=== PATIENT | female | born 1960 | race Two or more races ===

== ENCOUNTER 2019-12-09 13:49 | Outpatient (REF) | payer MEDICAID, SELFPAY | END 2019-12-09 13:50 | disposition home or self-care (01) | LOC: HO.MDS 13:49 | PROVIDERS: Visit Provider Hospitalist | DX: J45.50 Severe persistent asthma, uncomplicated (principal) | CPT/HCPCS: 96372; J2357 ==

== ENCOUNTER → 2019-12-16 14:04 | Outpatient (BNVA) | payer MEDICAID, SELFPAY | PROVIDERS: PCP Internal Medicine; Referring Provider Internal Medicine; Visit Provider Orthopaedic Surgery | DX: M17.0 Bilateral primary osteoarthritis of knee (principal) | CPT/HCPCS: 20610; 99214; J1040 ==

== ENCOUNTER → 2019-12-28 10:11 | Outpatient (BNVA) | payer MEDICAID, SELFPAY | PROVIDERS: PCP Internal Medicine; Referring Provider Internal Medicine; Visit Provider Hospitalist | DX: J45.41 Moderate persistent asthma with (acute) exacerbation (principal); J40 Bronchitis, not specified as acute or chronic; Z79.899 Other long term (current) drug therapy | CPT/HCPCS: 99212 ==

== ENCOUNTER → 2020-01-12 20:13 | Outpatient (REF) | payer MEDICAID, SELFPAY | LOC: HO.SL 20:13 | PROVIDERS: PCP Internal Medicine; Visit Provider Internal Medicine | DX: G47.33 Obstructive sleep apnea (adult) (pediatric) (principal) | CPT/HCPCS: 95811 ==

== ENCOUNTER 2020-01-13 06:09 | Outpatient (REF) | payer MEDICAID, SELFPAY ==
[2020-01-13 07:28] LABS: MANUAL DIFF FLAG NO
[2020-01-13 07:34] LABS: Basophils Percent Auto 0.7 % (0-2); Eosinophils Absolute Auto 0.2 X10*3/uL (0.0-0.4); Eosinophils Percent Auto 2.9 % (0-4); Hematocrit 37.3 % (37-47); Hemoglobin 12.3 g/dl (12.0-16.0); Imm Gran Abs Auto 0.01 X10*3/uL (0.00-0.03); Imm Gran Pct Auto 0.2 % (0.0-0.4); Lymphocytes Absolute Auto 2.4 X10*3/uL (1.2-4.9); Lymphocytes Percent Auto 40.4 % (20-40); Mean Platelet Volume 10.2 fL (9.4-12.3); Monocytes Absolute Auto 0.7 X10*3/uL (0.1-1.2); Monocytes Percent Auto 11.4 % (2-11); Neutrophils Absolute Auto 2.6 X10*3/uL (2.0-8.3); Neutrophils Percent Auto 44.4 % (45-73); Platelet Count 418 X10*3/uL (160-400); Red Blood Count 4.24 X10*6/uL (4.20-5.50); Red Cell Distribution Width 13.7 % (11.0-16.0); White Blood Count 5.9 X10*3/uL (4.8-10.8)
[2020-01-13 08:06] LABS: SARS COV2 IgG Negative (Negative)
[2020-01-13 08:39] LABS: Erythrocyte Sedimentation Rate 18 MM/HR (0-20)
== END 2020-01-13 06:10 | disposition home or self-care (01) ==
LOC: HO.LAB 06:09
PROVIDERS: Visit Provider Hospitalist
DX: J40 Bronchitis, not specified as acute or chronic (principal)
CPT/HCPCS: 36415; 85025; 85652; 86769; 96372; J2357

== ENCOUNTER → 2020-01-20 09:33 | Outpatient (BNVA) | payer MEDICAID, SELFPAY | PROVIDERS: Visit Provider Nurse Practitioner | DX: Z76.89 Persons encountering health services in other specified circumstances (principal) ==

== ENCOUNTER 2020-01-27 11:48 | Outpatient (REF) | payer MEDICAID, SELFPAY | END 2020-01-27 11:49 | disposition home or self-care (01) | LOC: HO.MDS 11:48 | PROVIDERS: Visit Provider Hospitalist | DX: J45.909 Unspecified asthma, uncomplicated (principal) | CPT/HCPCS: 96372; J2357 ==

== ENCOUNTER 2020-02-10 13:39 | Outpatient (REF) | payer MEDICAID, SELFPAY | END 2020-02-10 13:40 | disposition home or self-care (01) | LOC: HO.MDS 13:39 | PROVIDERS: Visit Provider Hospitalist | DX: J45.909 Unspecified asthma, uncomplicated (principal) | CPT/HCPCS: 96372; J2357 ==

== ENCOUNTER 2020-02-24 12:35 | Outpatient (REF) | payer MEDICAID, SELFPAY | END 2020-02-24 12:36 | disposition home or self-care (01) | LOC: HO.MDS 12:35 | PROVIDERS: Visit Provider Hospitalist | DX: J45.50 Severe persistent asthma, uncomplicated (principal) | CPT/HCPCS: 96372; J2357 ==

== ENCOUNTER 2020-03-09 13:52 | Outpatient (REF) | payer MEDICAID, SELFPAY | END 2020-03-09 13:53 | disposition home or self-care (01) | LOC: HO.MDS 13:52 | PROVIDERS: Visit Provider Hospitalist | DX: J45.50 Severe persistent asthma, uncomplicated (principal) | CPT/HCPCS: 96372; J2357 ==

== ENCOUNTER → 2020-03-17 09:19 | Outpatient (BNVA) | payer MEDICAID, SELFPAY | PROVIDERS: PCP Internal Medicine; Visit Provider Nurse Practitioner | DX: K21.9 Gastro-esophageal reflux disease without esophagitis (principal); R10.13 Epigastric pain; K58.1 Irritable bowel syndrome with constipation ==

== ENCOUNTER 2020-03-19 08:35 | Outpatient (REF) | payer MEDICAID, SELFPAY ==
--- NOTE | 2020-03-19 | MM_ITS ---
EXAMINATION: MM SCREENING DIGITAL BREAST TOMOSYNTHESIS, BILATERAL CLINICAL INFORMATION: Screening. Asymptomatic. Family history breast cancer in cousin. The lifetime risk of breast cancer based on the Tyrer-Cuzick Model is 5%. COMPARISON: None. TECHNIQUE: Digital breast tomosynthesis is performed in both the craniocaudal and mediolateral oblique views along with computer-aided detection (CAD). Synthesized 2D images are generated from the tomosynthesis. FINDINGS: The breasts are almost entirely fatty (ACR BI-RADS breast composition Category a). Background stromal markings are unremarkable. There is intramammary node posterior upper outer right breast and smaller intramammary node posterior upper outer left breast. There is no significant mass or architectural abnormality. No abnormal calcifications. The skin contours are smooth. MM/MM tomosynthesis screening BI IMPRESSION: No mammographic evidence of malignancy. ASSESSMENT: BI-RADS 2: Benign RECOMMENDATION: Routine annual mammography screening. This patient's information was entered into a reminder system with a target due date for their next mammogram.
== END 2020-03-19 08:36 | disposition home or self-care (01) ==
LOC: HO.MAMMO 08:35
PROVIDERS: PCP Internal Medicine; Visit Provider Internal Medicine
DX: Z12.31 Encounter for screening mammogram for malignant neoplasm of breast (principal)
CPT/HCPCS: 77063; 77067

== ENCOUNTER 2020-03-23 12:15 | Outpatient (REF) | payer MEDICAID, SELFPAY | END 2020-03-23 12:16 | disposition home or self-care (01) | LOC: HO.MDS 12:15 | PROVIDERS: Visit Provider Hospitalist | DX: J45.50 Severe persistent asthma, uncomplicated (principal) | CPT/HCPCS: 96372; J2357 ==

== ENCOUNTER → 2020-03-30 10:03 | Outpatient (BNVA) | payer MEDICAID, SELFPAY | PROVIDERS: PCP Internal Medicine; Visit Provider Hospitalist ==

== ENCOUNTER → 2020-04-01 08:58 | Outpatient (BNVA) | payer MEDICAID, SELFPAY | PROVIDERS: PCP Internal Medicine; Visit Provider Nurse Practitioner ==

== ENCOUNTER 2020-04-06 13:32 | Outpatient (REF) | payer MEDICAID, SELFPAY | END 2020-04-06 13:33 | disposition home or self-care (01) | LOC: HO.MDS 13:32 | PROVIDERS: Visit Provider Hospitalist | DX: J45.50 Severe persistent asthma, uncomplicated (principal) | CPT/HCPCS: 96372; J2357 ==

== ENCOUNTER 2020-04-21 13:49 | Outpatient (REF) | payer MEDICAID, SELFPAY | END 2020-04-21 13:50 | disposition home or self-care (01) | LOC: HO.MDS 13:49 | PROVIDERS: Visit Provider Hospitalist | DX: J45.50 Severe persistent asthma, uncomplicated (principal) | CPT/HCPCS: 96372; J2357 ==

== ENCOUNTER 2020-05-06 13:34 | Outpatient (REF) | payer MEDICAID, SELFPAY | END 2020-05-06 13:35 | disposition home or self-care (01) | LOC: HO.MDS 13:34 | PROVIDERS: Visit Provider Hospitalist | DX: J45.50 Severe persistent asthma, uncomplicated (principal) | CPT/HCPCS: 96372; J2357 ==

== ENCOUNTER → 2020-05-18 09:32 | Outpatient (BNVA) | payer MEDICAID, SELFPAY | PROVIDERS: PCP Internal Medicine; Visit Provider Surgery | DX: K80.20 Calculus of gallbladder without cholecystitis without obstruction (principal) | CPT/HCPCS: 99202 ==

== ENCOUNTER 2020-05-19 12:51 | Outpatient (REF) | payer MEDICAID, SELFPAY | END 2020-05-19 12:52 | disposition home or self-care (01) | LOC: HO.MDS 12:51 | PROVIDERS: Visit Provider Hospitalist | DX: J45.50 Severe persistent asthma, uncomplicated (principal) | CPT/HCPCS: 96372; J2357 ==

== ENCOUNTER 2020-06-02 13:49 | Outpatient (REF) | payer MEDICAID, SELFPAY | END 2020-06-02 13:50 | disposition home or self-care (01) | LOC: HO.MDS 13:49 | PROVIDERS: Visit Provider Hospitalist | DX: J45.50 Severe persistent asthma, uncomplicated (principal) | CPT/HCPCS: 96372; J2357 ==

== ENCOUNTER 2020-06-16 13:31 | Outpatient (REF) | payer MEDICAID, SELFPAY | END 2020-06-16 13:32 | disposition home or self-care (01) | LOC: HO.MDS 13:31 | PROVIDERS: Visit Provider Hospitalist | DX: J45.50 Severe persistent asthma, uncomplicated (principal) | CPT/HCPCS: 96372; 99202; J2357 ==

== ENCOUNTER → 2020-06-21 12:49 | Outpatient (BNVA) | payer MEDICAID, SELFPAY | PROVIDERS: PCP Internal Medicine; Visit Provider Orthopaedic Surgery | DX: M75.40 Impingement syndrome of unspecified shoulder (principal) | CPT/HCPCS: 20610; 99202; J1040 ==

== ENCOUNTER 2020-06-28 09:46 | Outpatient (REF) | payer MEDICAID, SELFPAY ==
--- NOTE | ~2020-06-28 | US_ITS ---
EXAMINATION: US VENOUS BILATERAL LOWER EXTREMITIES (REFLUX EXAM) CLINICAL INDICATION: Leg pain and varicose veins. COMPARISON: None TECHNIQUE: Color flow triplex imaging and compression Doppler was performed to evaluate both the deep and the superficial systems bilaterally. To evaluate the superficial system, the examination was performed in the upright position. Color-flow Doppler ultrasound and compression ultrasound were utilized. In addition, maneuvers were utilized to demonstrate reflux. FINDINGS: 1. DEEP VENOUS ULTRASOUND OF THE RIGHT LOWER EXTREMITY: Respiratory variation, normal compression and augmented flow are noted in the right common femoral vein as well as the right popliteal vein and there is no evidence of deep venous thrombosis at these locations. There is no evidence of reflux in the deep system in either the common femoral vein or the popliteal vein. There is no evidence of a Short's cyst. 2. SUPERFICIAL ULTRASOUND WITH DOPPLER OF RIGHT LOWER EXTREMITY: The right great saphenous vein at the saphenofemoral junction measures 7 mm, at the proximal thigh 6 mm, at the mid thigh 3 mm, above the knee 4 mm, at the knee 2 mm, [id number] 1 mm, midcalf 1 mm and at the ankle measures 1 mm. There is no reflux demonstrated in the right great saphenous vein. Duplicated Right Great Saphenous Vein: Lateral accessory saphenous measures 4 mm and does not reflux The right small saphenous vein measures 3 mm and shows no reflux. Some chronic changes are present proximally Accessory Vein of Giacomini: None Incompetent Perforators: None Varices Present: Yes but none over 3 mm in size. 3. DEEP VENOUS ULTRASOUND OF THE LEFT LOWER EXTREMITY: Respiratory variation, normal compression and augmented flow are noted in the left common femoral vein as well as the left popliteal vein and there is no evidence of deep venous thrombosis at these locations. There is no evidence of reflux in the deep system in either the common femoral vein or the popliteal vein. There is no evidence of a Short's cyst. 4. SUPERFICIAL ULTRASOUND WITH DOPPLER OF LEFT LOWER EXTREMITY: Left great saphenous vein at the saphenofemoral junction measures 6 mm, at the proximal thigh 3 mm, at the mid thigh 3 mm, above the knee 3 mm, at the knee 2 mm, [id number] 2 mm, midcalf 2 mm and at the not seen. There is no reflux demonstrated in the left great saphenous vein. Duplicated Left Great Saphenous Vein: There is a 5 mm lateral accessory saphenous that does not reflux The left small saphenous vein measures 2 mm and shows no reflux. Accessory Vein of Giacomini: None Incompetent Perforators: None. A 2 mm mid calf gas regulator repairer that does not reflux Varices Present: None US/US venous duplex LE BI IMPRESSION: 1. No evidence of reflux or thrombus in the common femoral veins or popliteal veins bilaterally. 2. The saphenous systems are competent bilaterally. Some chronic mural changes are seen in the right small saphenous vein.
== END 2020-06-28 09:47 | disposition home or self-care (01) ==
LOC: HO.US 09:46
PROVIDERS: Visit Provider Surgery Vascular Surgery
DX: I83.12 Varicose veins of left lower extremity with inflammation (principal); I83.893 Varicose veins of bilateral lower extremities with other complications
CPT/HCPCS: 93970

== ENCOUNTER 2020-06-30 13:34 | Outpatient (REF) | payer MEDICAID, SELFPAY | END 2020-06-30 13:35 | disposition home or self-care (01) | LOC: HO.MDS 13:34 | PROVIDERS: Visit Provider Hospitalist | DX: J45.40 Moderate persistent asthma, uncomplicated (principal) | CPT/HCPCS: 96372; J2357 ==

== ENCOUNTER → 2020-07-05 12:27 | Outpatient (BNVA) | payer MEDICAID, SELFPAY | PROVIDERS: Visit Provider Hospitalist | DX: G47.33 Obstructive sleep apnea (adult) (pediatric) (principal); J45.51 Severe persistent asthma with (acute) exacerbation; K21.9 Gastro-esophageal reflux disease without esophagitis; J30.9 Allergic rhinitis, unspecified | CPT/HCPCS: 99212 ==

== ENCOUNTER 2020-07-14 11:14 | Outpatient (REF) | payer MEDICAID, SELFPAY | END 2020-07-14 11:15 | disposition home or self-care (01) | LOC: HO.MDS 11:14 | PROVIDERS: Visit Provider Hospitalist | DX: J45.50 Severe persistent asthma, uncomplicated (principal) | CPT/HCPCS: 96372; 99212; J2357 ==

== ENCOUNTER 2020-07-28 12:23 | Outpatient (REF) | payer MEDICAID, SELFPAY | END 2020-07-28 12:24 | disposition home or self-care (01) | LOC: HO.MDS 12:23 | PROVIDERS: Visit Provider Hospitalist | DX: J45.50 Severe persistent asthma, uncomplicated (principal) | CPT/HCPCS: 96372; J2357 ==

== ENCOUNTER 2020-07-29 18:30 | Emergency (ER) | payer MEDICAID, SELFPAY ==
--- NOTE | ~2020-07-29 | XR_ITS ---
EXAMINATION: XR CHEST CLINICAL INFORMATION: Asthma COMPARISON: 01/05/2019 TECHNIQUE: 2 views of the chest were obtained. FINDINGS: There is some mild peribronchial thickening present. Otherwise, No significant abnormality is noted involving the heart, lungs, mediastinum, bony thorax or soft tissues. XR/XR chest 2V IMPRESSION: No acute intrathoracic disease.
--- NOTE | ~2020-07-29 | CT_ITS ---
EXAMINATION: CT HEAD WITHOUT CONTRAST CLINICAL INFORMATION: Headache COMPARISON: CT head 09/02/2018 TECHNIQUE: Contiguous axial imaging was performed from the skull base to vertex without intravenous administration of contrast. This CT examination was performed using dose optimization techniques as appropriate, variously including the following: *Automated exposure control *Adjustment of mA and/or kV according to patient size (this includes techniques or standardized protocols for targeted exams where dose is matched to indication/reason for exam; i.e. extremities or head) *Use of iterative reconstruction technique DLP: 619 mGy-cm FINDINGS: There is no evidence of acute intracranial hemorrhage or territorial infarction. No abnormal mass effect or midline shift is seen. Marshall to white matter differentiation is well preserved. No extra-axial fluid collections are identified. The ventricles are normal in size. There is no abnormal attenuation within the brain parenchyma. The osseous structures and soft tissues are normal. The mastoid air cells and visualized portions of the paranasal sinuses are well aerated. CT/CT head/brain wo con IMPRESSION: No acute intracranial pathology.
[2020-07-29 19:52] VITALS: BP 144/82; PULSE 85; RESP 18; TEMP 36.4; O2SAT 98; BMI 44.4
[2020-07-29 21:43] VITALS: BP 132/62; PULSE 68; RESP 18; O2SAT 98
[2020-07-29] MEDS: 0.9 % Sodium Chloride 500 ML IV (22:57)
[2020-07-29 23:01] LABS: MANUAL DIFF FLAG NO
[2020-07-29 23:03] LABS: Basophils Percent Auto 0.7 % (0-2); Eosinophils Absolute Auto 0.1 X10*3/uL (0.0-0.4); Eosinophils Percent Auto 1.3 % (0-4); Hematocrit 36.1 % (37-47); Hemoglobin 12.2 g/dl (12.0-16.0); Imm Gran Abs Auto 0.03 X10*3/uL (0.00-0.03); Imm Gran Pct Auto 0.5 % (0.0-0.4); Lymphocytes Absolute Auto 2.1 X10*3/uL (1.2-4.9); Lymphocytes Percent Auto 35.1 % (20-40); Mean Corpuscular HGB Conc 33.8 g/dl (31.0-35.0); Mean Corpuscular Hemoglobin 29.8 pg (27.0-33.0); Mean Platelet Volume 11.6 fL (9.4-12.3); Monocytes Absolute Auto 0.5 X10*3/uL (0.1-1.2); Monocytes Percent Auto 7.6 % (2-11); Neutrophils Absolute Auto 3.3 X10*3/uL (2.0-8.3); Neutrophils Percent Auto 54.8 % (45-73); Platelet Count 240 X10*3/uL (160-400); Red Cell Distribution Width 15.6 % (11.0-16.0); White Blood Count 6.1 X10*3/uL (4.8-10.8)
--- NOTE | 2020-07-29 23:07 | ED.GENADULT ---
HPI - General Adult General Chief complaint: General Medical Stated complaint: high bp, headache Time Seen by Provider: 07/29/20 22:35 Source: patient, RN notes reviewed and old records reviewed Mode of arrival: ambulatory Limitations: no limitations History of Present Illness HPI narrative: 59-year-old female here with past medical history of asthma, bronchitis, chronic allergic rhinitis, GEORGIE, is here today for complaints of frontal and occipital headache and high blood pressure. Patient reports that she checked her blood pressure at home and was high. She states that she was at the doctor's office yesterday and her blood pressure was high. Blood pressure in triage was 144/82, patient denies any dizziness, blurry vision, CP, PND, presyncope or syncope. Related Data Home Medications Medication Instructions Recorded Confirmed clonazepam 0.5 mg tablet 0.5 mg PO DAILY 12/28/19 07/05/20 hydroxyzine HCl 25 mg tablet 25 mg PO BEDTIME 12/28/19 07/05/20 ipratropium bromide 17 2 puff INHALATION Q8H 12/28/19 07/05/20 mcg/actuation HFA aerosol inhaler omalizumab 150 mg/mL subcutaneous 150 mg SUBCUT Q2W 12/28/19 07/05/20 syringe metoprolol succinate 25 mg 12.5 mg PO DAILY 05/18/20 07/05/20 tablet,extended release 24 hr omega-3 fatty acids 1,000 mg 1,000 mg PO DAILY 05/18/20 07/05/20 capsule Previous Rx's Medication Instructions Recorded benzonatate 200 mg capsule 200 mg PO BID PRN 30 Days #45 cap 12/28/19 bisacodyl 5 mg tablet,delayed 10 mg PO BEDTIME 30 Days #60 tab 03/17/20 release pantoprazole 40 mg tablet,delayed 40 mg PO BID 30 Days #60 tab 03/17/20 release sucralfate 1 gram tablet 1 g PO BID 30 Days #60 tab 03/17/20 albuterol sulfate 2.5 mg INHALATION Q6H PRN 30 Days 07/28/20 #180 ml albuterol sulfate 90 mcg/actuation 2 puff INHALATION Q6H PRN 30 Days 07/28/20 aerosol inhaler #18 g epinephrine 0.3 mg/0.3 mL 0.3 mg IM Q10M PRN 30 Days #2 ea 07/28/20 injection, auto-injector fluticasone furoate 200 1 inh INHALATION DAILY 90 Days #3 07/28/20 mcg-vilanterol 25 mcg/dose ea inhalation powder loratadine 10 mg tablet 10 mg PO DAILY 90 Days #90 tab 07/28/20 ibuprofen 600 mg PO Q8H PRN #20 tab 07/30/20 Allergies Allergy/AdvReac Type Severity Reaction Status Date / Time peanut [PEANUT] Allergy Intermediate RASH Verified 07/14/20 10:50 Penicillins Allergy Unknown hives, Verified 07/14/20 10:50 swelling pollen extracts [POLLEN] Allergy Unknown ITCHING Verified 07/14/20 10:50 Review of Systems Review of Systems: Constitutional : No Weight loss, No Fever, No Chills, No Night Sweats, No Fatigue, No Malaise ENT/Mouth : No Hearing loss, No Ear Pain, No Nasal Congestion, No Sinus Pain, No Hoarseness, No sore throat, No Rhinorrhea, No Swallowing Difficulty Eyes: No Eye Pain, No Swelling, No Redness, No Foreign Body, No Discharge, No Vision Changes Cardiovascular : No Chest Pain, No SOB, No Dyspnea on Exertion, No Orthopnea, No Edema, No Palpitations Respiratory : No Cough, No Sputum, No Wheezing, No Smoke Exposure, No Dyspnea Gastrointestinal : No Nausea, No Vomiting, No Diarrhea, No Constipation, No abdominal Pain, No Hematochezia, No Melena Genitourinary : no irregular bleeding, No Dysuria, No Urinary Frequency, No Hematuria, No Urinary Incontinence, No Urgency, No Flank Pain, No Urinary Flow Changes, No Hesitancy Musculoskeletal : No joint pain, No Myalgias, No Joint Swelling Skin : No Skin Lesions, No rash Neuro : No Weakness, No Numbness, No Paresthesias, No Loss of Consciousness, No Dizziness, Headache Psych : No Anxiety/Panic, No Depression, No SI/HI/AH/VH, No Social Issues, Heme/Lymph: No Bruising, No Bleeding,No Lymphadenopathy Endocrine : No Polyuria, No Polydipsia, No Temperature Intolerance Yes all other systems are reviewed and are negative [facility] Past Medical History Medical History Asthma Bronchitis Chronic allergic rhinitis GEORGIE (obstructive sleep apnea) Tubular adenoma of colon Surgical History History of section Hx of colonoscopy Family History Family History Father No problems noted. 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 Physical Exam Vital Signs: Vital Signs: Last Vital Signs Temp 97.9 F 07/30/20 00:00 Pulse 59 07/30/20 00:00 Resp 18 07/30/20 00:00 BP 134/71 07/30/20 00:00 Pulse Ox 98 07/30/20 00:00 Body Mass Index 44.4 Const: General: healthy appearing, no acute distress and well developed Nutritional Appearance: well nourished Orientation/consciousness: patient oriented x3 HENMT: Head: Yes normal to inspection, Yes normocephalic and Yes atraumatic Ears: hearing grossly normal bilaterally General nose exam: Normal external nose present Face and sinus: Yes normal facial exam and Yes sinuses nontender Neck: Neck: Yes normal visual inspection, Yes full ROM and Yes trachea midline Thyroid: Thyroid normal Resp: Auscultation: clear to auscultation bilaterally Cardio: Rate: regular rate Rhythm: regular rhythm GI: Inspection: Yes normal to inspection and No distended Palpation (GI): No hepatosplenomegaly present Auscultation: normal bowel sounds Skin: General skin exam: elasticity normal, turgor normal and dry skin Neuro: General: patient oriented x3 Course Course Course Narrative: 59-year-old female here today for complaining of headache. Patient reports that she had high blood pressure at home. At this moment her pressure is 144/82 and her pain went down from 10/10 to 7/10. Patient reports that her headache is in frontal and occipital area. Denies dizziness,, presyncope, syncope, chest pain. Will order CT scan of the head, CBC and BMP. Will recheck her blood pressure. Reevaluation(s) Reevaluation #1: Blood work negative for leukocytosis, CT scan negative for any acute processes. We will send patient home to follow-up with her PCP. Her blood pressure was normal in the ED Medical Decision Making Lab Data Result diagrams: 07/29/20 22:56 07/29/20 22:56 Labs: Lab Results 07/29/20 07/29/20 Range/Units 22:56 22:56 WBC 6.1 (4.8-10.8) X10*3/uL RBC 4.10 L (4.20-5.50) X10*6/uL Hgb 12.2 (12.0-16.0) g/dl Hct 36.1 L (37-47) % MCV 88.0 (80-98) fL MCH 29.8 (27.0-33.0) pg MCHC 33.8 (31.0-35.0) g/dl RDW 15.6 (11.0-16.0) % Plt Count 240 D (160-400) X10*3/uL MPV 11.6 (9.4-12.3) fL Immature Gran % (Auto) 0.5 H (0.0-0.4) % Neut % (Auto) 54.8 (45-73) % Lymph % (Auto) 35.1 (20-40) % [place]ock[place] % (Auto) 7.6 (2-11) % Eos % (Auto) 1.3 (0-4) % Baso % (Auto) 0.7 (0-2) % Lymph # (Auto) 2.1 (1.2-4.9) X10*3/uL [place] # (Auto) 0.5 (0.1-1.2) X10*3/uL Eos # (Auto) 0.1 (0.0-0.4) X10*3/uL Baso # (Auto) 0.0 (0.0-0.2) X10*3/uL Abs Immat Gran (auto) 0.03 (0.00-0.03) X10*3/uL Absolute Neuts (auto) 3.3 (2.0-8.3) X10*3/uL Absolute Nucleated RBC 0.000 (0.0-0.012) X10*3/uL Nucleated RBC % (auto) 0.0 (0.0-0.2) /100WBC Sodium 144 (135-145) mmol/L Potassium 4.4 (3.3-5.1) mmol/L Chloride 109 H (96-108) mmol/L Carbon Dioxide 26 (22-29) mmol/L Anion Gap 13 (12-20) BUN 14 (9-16) mg/dL Creatinine 1.24 (0.5-1.4) mg/dL Estim Creat Clear Calc 52.0 Estimated GFR 45 Random Glucose 94 (60-115) mg/dL Calcium 8.7 (8.4-10.2) mg/dL Imaging Data CT scan - head: Radiologist's impression: FINDINGS: There is no evidence of acute intracranial hemorrhage or territorial infarction. No abnormal mass effect or midline shift is seen. Marshall to white matter differentiation is well preserved. No extra-axial fluid collections are identified. The ventricles are normal in size. There is no abnormal attenuation within the brain parenchyma. The osseous structures and soft tissues are normal. The mastoid air cells and visualized portions of the paranasal sinuses are well aerated. CT/CT head/brain wo con IMPRESSION: No acute intracranial pathology. Chest x-ray: Radiologist's impression: FINDINGS: There is some mild peribronchial thickening present. Otherwise, No significant abnormality is noted involving the heart, lungs, mediastinum, bony thorax or soft tissues. XR/XR chest 2V IMPRESSION: No acute intrathoracic disease. Discharge Plan Discharge Clinical Impression: Headache Qualifiers: Headache type: unspecified Headache chronicity pattern: unspecified pattern Intractability: not intractable Qualified Code(s): R51.9 - Headache, unspecified Hypertension Qualifiers: Hypertension type: essential hypertension Qualified Code(s): I10 - Essential (primary) hypertension Patient Disposition: Home, Self-Care Instructions: Migraine Headache (ED) Additional Instructions: Te jurado visto aqu? hoy por dolor de nicola. Tu presi?n arterial era normal. Thomas tomograf?a computarizada de la nicola fue normal. Tus laboratorios tambi?n fueron normales. Julia un seguimiento con thomas m?dico de atenci?n primaria sobre thomas presi?n arterial. ?l puede regresar al departamento de emergencias si chaitanya s?ntomas regresan o si experimenta cualquier otro s?ntoma Prescriptions: New ibuprofen 600 mg tablet 600 mg PO Q8H PRN (Reason: pain) Qty: 20 RF: 0 No Action albuterol sulfate 2.5 mg /3 mL (0.083 %) solution for nebulization 2.5 mg inhalation Q6H PRN (Reason: shortness of breath or wheezing) 30 Days Qty: 180 RF: 12 albuterol sulfate [ProAir HFA] 90 mcg/actuation HFA aerosol inhaler 2 puff inhalation Q6H PRN (Reason: shortness of breath or wheezing) 30 Days Qty: 18 RF: 11 Breo Ellipta 200-25 mcg/dose blister with device 1 inh inhalation DAILY 90 Days Qty: 3 RF: 3 loratadine [Claritin] 10 mg tablet 10 mg PO DAILY 90 Days Qty: 90 RF: 3 epinephrine [EpiPen 2-Rell] 0.3 mg/0.3 mL auto-injector 0.3 mg IM Q10M PRN (Reason: anaphylaxis) 30 Days Qty: 2 RF: 6 metoprolol succinate 25 mg tablet extended release 24 hr 12.5 mg PO DAILY RF: 0 omega-3 fatty acids [Fish Oil Concentrate] 1,000 mg capsule 1,000 mg PO DAILY RF: 0 clonazepam 0.5 mg tablet 0.5 mg PO DAILY RF: 0 Atrovent HFA 17 mcg/actuation HFA aerosol inhaler 2 puff inhalation Q8H RF: 0 Xolair 150 mg/mL syringe 150 mg subcut Q2W RF: 0 hydroxyzine HCl 25 mg tablet 25 mg PO BEDTIME RF: 0 benzonatate 200 mg capsule 200 mg PO BID PRN (Reason: cough) 30 Days Qty: 45 RF: 3 pantoprazole [Protonix] 40 mg tablet,delayed release (DR/EC) 40 mg PO BID 30 Days Qty: 60 RF: 3 bisacodyl [Dulcolax (bisacodyl)] 5 mg tablet,delayed release (DR/EC) 10 mg PO BEDTIME 30 Days Qty: 60 RF: 4 sucralfate [Carafate] 1 gram tablet 1 g PO BID 30 Days Qty: 60 RF: 4 Stand Alone Forms: Work/School Release Interventions: ED Discharge Assessment Last Done: 06/05/21 01:50 Discharge Date/Time: 07/30/20 01:52
[2020-07-29 23:30] LABS: Anion Gap 13 (12-20); Blood Urea Nitrogen 14 mg/dL (9-16); Calcium 8.7 mg/dL (8.4-10.2); Carbon Dioxide 26 mmol/L (22-29); Chloride 109 mmol/L (96-108); Estimated Glomerular Filt Rate 45; Glucose Random 94 mg/dL (60-115); Potassium 4.4 mmol/L (3.3-5.1); Sodium 144 mmol/L (135-145)
[2020-07-30] VITALS: BP 134/71; PULSE 59; RESP 18; TEMP 36.6; O2SAT 98
== END 2020-07-30 01:52 | disposition home or self-care (01) ==
PROVIDERS: Nurse Practitioner Family; Emergency Provider Emergency Medicine
DX: R51.9 Headache, unspecified (principal); I10 Essential (primary) hypertension
CPT/HCPCS: 36415; 70450; 71046; 80048; 85025; 96360; 99284

== ENCOUNTER → 2020-08-02 08:10 | Outpatient (REF) | payer MEDICAID, SELFPAY ==
--- NOTE | ~2020-08-02 | NM_ITS ---
Myocardial perfusion study Indication: Syncopal episodes to evaluate for myocardial ischemia Technique: The patient was brought in for a Lexiscan perfusion study on 08/01/2020. Patient performed low-level exercise and was injected 0.4 mg of Lexiscan intravenously. Within a minute of injection, 35 mCi of sestamibi was given intravenously. Images were obtained using the SPECT gamma camera interlaced with the gating device. Images were obtained in supine position. Resting perfusion study was performed on 08/03/2020. Patient was administered 35 mCi of sestamibi intravenously at rest. Images were then obtained in supine position. Images obtained with and without CT attenuation. Total DLP 149 mGy-cm. Images were processed with the software and compared side to side in short axis, horizontal long axis and vertical long axis views. Findings: The stress perfusion study showed nonattenuated images show mildly reduced uptake in the apex of the LV myocardium. Remainder of the LV myocardium is normally perfused. Attenuation corrected images show minimally reduced uptake in the distal septum of the LV myocardium.. The gated study shows normal LV systolic function with calculated LVEF of 59%. LV cavity is normal in size. The gated study shows normal systolic wall thickening and contraction of segments. Resting study shows nonattenuated images show normal uptake of radiotracer in all segments of LV myocardium. Attenuation corrected images show mildly reduced uptake in the distal septum of the LV myocardium.. Gating at rest reveals normal systolic wall motion with ejection fraction at 73%. The findings are consistent with no clear reversible defect on attenuated corrected images. Most likely suggestive normal myocardial perfusion. NM/NM toby perf SPECT rest & str Impression: 1. Myocardial perfusion imaging study shows likely normal myocardial perfusion 2. Gated LVEF is 59% 3. Transient ischemic dilatation not present EKG is nondiagnostic for ischemia
--- NOTE | 2020-08-02 08:30 | CA_ITS ---
Acquisition Time: 2020-08-02 08:28:29 Total Exercise Time: 00:02:00 Test Indications: Abnormal ECG Medications: SEE H Protocol: LEXISCAN Max HR: 114 BPM 69% of Pred: 163 BPM Max BP: 146/080 mmHG Max Work Load: 1.0 METS Pharmacological stress test with Lexiscan injection, while sitting and kicking her legs, without anginal symptoms, with isolated PACs, with normotensive response to injection, with nondiagnostic EKG for ischemia. In recovery she reported nausea that was treated with Amionophylline 75mg IVP to reverse Lexiscan with resolution of symptom. Nuclear images pending. Test reviewed with Dr Bryant. Referred By: Derik Canseco Overread By: NKECHI KUMARI
== END ==
LOC: HO.CARD 08:10
PROVIDERS: Visit Provider Internal Medicine Cardiovascular Disease
DX: R55 Syncope and collapse (principal)
CPT/HCPCS: 78452; 93017; A9500; J0280; J2785

== ENCOUNTER 2020-08-09 14:37 | Outpatient (REF) | payer MEDICAID, SELFPAY | END 2020-08-09 14:38 | disposition home or self-care (01) | LOC: HO.MDS 14:37 | PROVIDERS: Visit Provider Hospitalist | DX: J45.50 Severe persistent asthma, uncomplicated (principal) | CPT/HCPCS: 96372; J2357 ==

== ENCOUNTER 2020-08-24 12:54 | Outpatient (REF) | payer MEDICAID, SELFPAY | END 2020-08-24 12:55 | disposition home or self-care (01) | LOC: HO.MDS 12:54 | PROVIDERS: Visit Provider Hospitalist | DX: J45.50 Severe persistent asthma, uncomplicated (principal) | CPT/HCPCS: 96372; J2357 ==

== ENCOUNTER 2020-09-08 12:27 | Outpatient (REF) | payer MEDICAID, SELFPAY | END 2020-09-08 12:28 | disposition home or self-care (01) | LOC: HO.MDS 12:27 | PROVIDERS: Visit Provider Hospitalist | DX: J45.50 Severe persistent asthma, uncomplicated (principal) | CPT/HCPCS: 96372; J2357 ==

== ENCOUNTER → 2020-09-20 08:14 | Outpatient (BNVA) | payer MEDICAID, SELFPAY | PROVIDERS: PCP Internal Medicine; Visit Provider Nurse Practitioner ==

== ENCOUNTER 2020-09-22 14:08 | Outpatient (REF) | payer MEDICAID, SELFPAY | END 2020-09-22 14:09 | disposition home or self-care (01) | LOC: HO.MDS 14:08 | PROVIDERS: Visit Provider Hospitalist | DX: J45.50 Severe persistent asthma, uncomplicated (principal) | CPT/HCPCS: 96372; J2357 ==

== ENCOUNTER → 2020-10-04 13:10 | Outpatient (BNVA) | payer MEDICAID, SELFPAY | PROVIDERS: PCP Internal Medicine; Visit Provider Hospitalist | DX: G47.33 Obstructive sleep apnea (adult) (pediatric) (principal); J45.51 Severe persistent asthma with (acute) exacerbation; J30.9 Allergic rhinitis, unspecified; K21.9 Gastro-esophageal reflux disease without esophagitis | CPT/HCPCS: 99212 ==

== ENCOUNTER 2020-10-06 13:37 | Outpatient (REF) | payer MEDICAID, SELFPAY | END 2020-10-06 13:38 | disposition home or self-care (01) | LOC: HO.MDS 13:37 | PROVIDERS: Visit Provider Hospitalist | DX: J45.50 Severe persistent asthma, uncomplicated (principal) | CPT/HCPCS: 96372; J2357 ==

== ENCOUNTER 2020-10-20 12:21 | Outpatient (REF) | payer MEDICAID, SELFPAY | END 2020-10-20 12:22 | disposition home or self-care (01) | LOC: HO.MDS 12:21 | PROVIDERS: Visit Provider Hospitalist | DX: J45.50 Severe persistent asthma, uncomplicated (principal) | CPT/HCPCS: 96372; J2357 ==

== ENCOUNTER 2020-11-03 12:23 | Outpatient (REF) | payer MEDICAID, SELFPAY | END 2020-11-03 12:24 | disposition home or self-care (01) | LOC: HO.MDS 12:23 | PROVIDERS: Visit Provider Hospitalist | DX: J45.50 Severe persistent asthma, uncomplicated (principal) | CPT/HCPCS: 96372; J2357 ==

== ENCOUNTER 2020-11-25 11:29 | Outpatient (REF) | payer MEDICAID, SELFPAY | END 2020-11-25 11:30 | disposition home or self-care (01) | LOC: HO.MDS 11:29 | PROVIDERS: Visit Provider Hospitalist | DX: J45.50 Severe persistent asthma, uncomplicated (principal) | CPT/HCPCS: 96372; J2357 ==

== ENCOUNTER 2020-12-07 08:44 | Emergency (ER) | payer MEDICAID, SELFPAY ==
--- NOTE | ~2020-12-07 | XR_ITS ---
EXAMINATION: XR FOOT, RIGHT CLINICAL INFORMATION: First metatarsal pain and tenderness COMPARISON: None TECHNIQUE: AP, lateral, and oblique views of the right foot. FINDINGS: The bones and soft tissues are normal. No fracture. Alignment is anatomic. Joint spaces are maintained. XR/XR foot RT min 3V IMPRESSION: Normal right foot.
[2020-12-07 09:02] VITALS: BP 126/71; PULSE 84; RESP 18; TEMP 36.1; O2SAT 97; BMI 40.4
--- NOTE | 2020-12-07 09:06 | ED_ITS ---
HPI - Back Pain/Injury General Chief Complaint: Back Pain/Injury Stated Complaint: back pain/foot pain Time Seen by Provider: 12/07/20 09:05 Source: patient Mode of arrival: ambulatory Limitations: no limitations History of Present Illness HPI Narrative: 52-year-old female presenting to the ER with lower back pain for the last 3 days as well as pain on the top of her right foot for the last 2 weeks. She reports her lower back pain started when she woke up about 3 days ago. It is worth worse with movement and bending over. She cannot recall any specific injury. She denies any numbness, weakness, tingling, incontinence, fevers. She has been taking Motrin for the pain with minimal relief. She also reports on and off right foot pain for the last 2 weeks. She states the top of her foot swells and hurts and waxes and wanes. She denies any injuries. She is able to ambulate but with a limp. MD elicited complaint: back pain and other (right foot pain) Pertinent past history: prior back pain Onset (ago): day(s) (3) Timing: constant Severity: moderate Similar Symptoms Previously: Yes Quality: aching Location: right lower back and left lower back Radiation: none Exacerbating factors: movement and coughing/sneezing Relieving factors: immobilization Context: unknown Associated symptoms: denies other symptoms Treatments prior to arrival: acetaminophen Work related injury: No Related Data Home Medications Medication Instructions Recorded Confirmed clonazepam 0.5 mg tablet 0.5 mg PO DAILY 12/28/19 10/04/20 hydroxyzine HCl 25 mg tablet 25 mg PO BEDTIME 12/28/19 10/04/20 omalizumab 150 mg/mL subcutaneous 150 mg SUBCUT Q2W 12/28/19 10/04/20 syringe (Xolair) metoprolol succinate 25 mg 12.5 mg PO DAILY 05/18/20 10/04/20 tablet,extended release 24 hr omega-3 fatty acids 1,000 mg 1,000 mg PO DAILY 05/18/20 10/04/20 capsule (Fish Oil Concentrate) ferrous sulfate 325 mg (65 mg 325 mg PO DAILY 10/04/20 10/04/20 iron) tablet Previous Rx's Medication Instructions Recorded benzonatate 200 mg capsule 200 mg PO BID PRN 30 Days #45 cap 12/28/19 albuterol sulfate 2.5 mg INHALATION Q6H PRN 30 Days 07/28/20 #180 ml epinephrine 0.3 mg/0.3 mL 0.3 mg IM Q10M PRN 30 Days #2 ea 07/28/20 injection, auto-injector (EpiPen 2-Rell) ibuprofen 600 mg tablet 600 mg PO Q8H PRN #20 tab 07/30/20 bisacodyl 5 mg tablet,delayed 10 mg PO BEDTIME 30 Days #60 tab 09/20/20 release (Dulcolax (bisacodyl)) pantoprazole 40 mg tablet,delayed 40 mg PO BID 30 Days #60 tab 09/20/20 release (Protonix) sucralfate 1 gram tablet 1 g PO BID #60 tab 09/20/20 albuterol sulfate 90 mcg/actuation 2 puff INHALATION Q6H PRN 30 Days 10/04/20 aerosol inhaler (ProAir HFA) #18 g fluticasone furoate 200 1 inh INHALATION DAILY 90 Days #3 10/04/20 mcg-vilanterol 25 mcg/dose ea inhalation powder (Breo Ellipta) ipratropium bromide 17 2 puff INHALATION Q8H 30 Days 10/04/20 mcg/actuation HFA aerosol inhaler #12.9 g (Atrovent HFA) loratadine 10 mg tablet (Claritin) 10 mg PO DAILY 90 Days #90 tab 10/04/20 cyclobenzaprine 10 mg tablet 10 mg PO TID PRN #10 tab 12/07/20 ibuprofen 600 mg tablet 600 mg PO Q8H PRN #20 tab 12/07/20 lidocaine 5 % topical patch 1 patch TOPICAL DAILY #15 ea 12/07/20 tramadol 50 mg tablet 50 mg PO BID PRN #5 tab 12/07/20 Allergies Allergy/AdvReac Type Severity Reaction Status Date / Time Penicillins Allergy Severe hives, Verified 12/07/20 09:02 swelling pollen extracts [POLLEN] Allergy Severe ITCHING Verified 12/07/20 09:02 peanut [PEANUT] Allergy Intermediate RASH Verified 12/07/20 09:02 Review of Systems Review of Systems: Constitutional: No Fever, No Chills Cardiovascular: No Chest Pain, No SOB Respiratory: No Cough, No Sputum Gastrointestinal: No Nausea, No Vomiting, No Diarrhea, No abdominal Alyssia Genitourinary: No Dysuria, No Urinary Frequency, No Hematuria Musculoskeletal: + joint pain, + Myalgias Skin: No Skin Lesions, No rash Neuro: No Weakness, No Numbness, No Dizziness, No Headache Psych: No Anxiety/Panic, No Depression Heme/Lymph: No Bruising, No Lymphadenopathy PMFSH Past Medical History Medical History Asthma Bronchitis Chronic allergic rhinitis GEORGIE (obstructive sleep apnea) Tubular adenoma of colon Surgical History History of section Hx of colonoscopy Family History Family History Father No problems noted. 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 Oriented X3. No acute distress. HEENT: normal external inspection Neck: Normal inspection. Neck supple. CVS: Normal heart rate and rhythm. Pulses normal. Respiratory: No respiratory distress. Breath sounds normal. Back: normal inspection. Soft tissue tenderness of the middle lumbar area bilaterally, no spinal tenderness. Normal ROM of the spine. Skin: Skin warm and dry. Normal skin color. Normal skin turgor. No rashes. Extremities: No lower extremity edema. Right foot normal to inspection. Mild tenderness from great toe along 1st metatarsal. No swelling, ecchymosis or erythema. Normal ROM of the foot and ankle. NV intact distally. Neuro: Oriented X 3. No motor deficit. No sensory deficit. Ambulates with slight limp. Course Course Course Narrative: 52-year-old female presents to the ER with 2 weeks of right anterior foot pain as well as 3 days of lower back pain. X-ray of the foot is normal. We discussed symptomatic care and Wale wrap was placed for comfort. She will follow-up with her primary care doctor. Her lower back pain is most likely due to muscle strain and spasm. She has no red flag symptoms of lower back pain. She appears well on exam. Will treat with anti-inflammatory, muscle relaxer, Lidoderm patches, and short course of p.r.n. tramadol for severe pain. She was encouraged follow-up with her primary care and understands the importance of this. Stable for discharge home. Critical Care Time Critical Care Time Critical Care Time: No Discharge Plan Discharge Clinical Impression: Foot pain, right Strain of lumbar region Qualifiers: Encounter type: initial encounter Qualified Code(s): S39.012A - Strain of muscle, fascia and tendon of lower back, initial encounter Patient Disposition: Home, Self-Care Instructions: Low Back Strain (ED), Lower Back Exercises (ED), Metatarsalgia (D C) Additional Instructions: Your x-ray today was normal. Recommend wearing the WALE wrap on your foot for compression and support. Elevate your foot and use ice several times per day. Your back pain is most likely due to muscle strain and spasm. No bending, lifting or twisting. Use ice several times per day for 20 minutes at a time for the next 48 hours and then change to heat. Take medications as prescribed to help with pain and discomfort. Follow up with your Primary Care Doctor this week. If your pain worsens, if you develop new numbness, tingling, weakness, loss of function or incontinence call 911 or come back to the ER right away for evaluation. Prescriptions: New cyclobenzaprine 10 mg tablet 10 mg PO TID PRN (Reason: muscle spasm) Qty: 10 RF: 0 ibuprofen 600 mg tablet 600 mg PO Q8H PRN (Reason: pain) Qty: 20 RF: 0 lidocaine 5 % adhesive patch,medicated 1 patch topical DAILY Qty: 15 RF: 0 tramadol 50 mg tablet 50 mg PO BID PRN (Reason: severe pain (scale score 7-10)) Qty: 5 RF: 0 No Action albuterol sulfate 2.5 mg /3 mL (0.083 %) solution for nebulization 2.5 mg inhalation Q6H PRN (Reason: shortness of breath or wheezing) 30 Days Qty: 180 RF: 12 epinephrine [EpiPen 2-Rell] 0.3 mg/0.3 mL auto-injector 0.3 mg IM Q10M PRN (Reason: anaphylaxis) 30 Days Qty: 2 RF: 6 ibuprofen 600 mg tablet 600 mg PO Q8H PRN (Reason: pain) Qty: 20 RF: 0 metoprolol succinate 25 mg tablet extended release 24 hr 12.5 mg PO DAILY RF: 0 omega-3 fatty acids [Fish Oil Concentrate] 1,000 mg capsule 1,000 mg PO DAILY RF: 0 clonazepam 0.5 mg tablet 0.5 mg PO DAILY RF: 0 Xolair 150 mg/mL syringe 150 mg subcut Q2W RF: 0 hydroxyzine HCl 25 mg tablet 25 mg PO BEDTIME RF: 0 benzonatate 200 mg capsule 200 mg PO BID PRN (Reason: cough) 30 Days Qty: 45 RF: 3 sucralfate 1 gram tablet 1 g PO BID Qty: 60 RF: 6 pantoprazole [Protonix] 40 mg tablet,delayed release (DR/EC) 40 mg PO BID 30 Days Qty: 60 RF: 6 bisacodyl [Dulcolax (bisacodyl)] 5 mg tablet,delayed release (DR/EC) 10 mg PO BEDTIME 30 Days Qty: 60 RF: 6 ferrous sulfate 325 mg (65 mg iron) tablet 325 mg PO DAILY RF: 0 albuterol sulfate [ProAir HFA] 90 mcg/actuation HFA aerosol inhaler 2 puff inhalation Q6H PRN (Reason: shortness of breath or wheezing) 30 Days Qty: 18 RF: 11 Breo Ellipta 200-25 mcg/dose blister with device 1 inh inhalation DAILY 90 Days Qty: 3 RF: 3 Atrovent HFA 17 mcg/actuation HFA aerosol inhaler 2 puff inhalation Q8H 30 Days Qty: 12.9 RF: 11 loratadine [Claritin] 10 mg tablet 10 mg PO DAILY 90 Days Qty: 90 RF: 3 Stand Alone Forms: Work/School Release Print Language: Montenegrin
== END 2020-12-07 11:10 | disposition home or self-care (01) ==
PROVIDERS: Emergency Provider Emergency Medicine; PCP Internal Medicine
DX: S39.012A Strain of muscle, fascia and tendon of lower back, initial encounter (principal); M79.671 Pain in right foot; J45.909 Unspecified asthma, uncomplicated; X58.XXXA Exposure to other specified factors, initial encounter; Y93.9 Activity, unspecified; Y92.9 Unspecified place or not applicable; Y99.9 Unspecified external cause status
CPT/HCPCS: 73630; 99283

== ENCOUNTER 2020-12-16 11:12 | Outpatient (REF) | payer MEDICAID, SELFPAY | END 2020-12-16 11:13 | disposition home or self-care (01) | LOC: HO.MDS 11:12 | PROVIDERS: Visit Provider Hospitalist | DX: J45.50 Severe persistent asthma, uncomplicated (principal) | CPT/HCPCS: 96372; J2357 ==

== ENCOUNTER 2020-12-28 08:39 | Outpatient (REF) | payer MEDICAID, SELFPAY ==
[2020-12-28 16:26] LABS: CT PCR NOT DETECTED (Not Detect.); NG PCR NOT DETECTED (Not Detect.)
[2020-12-29 11:04] LABS: BV Int Neg Control Negative (Negative); BV Int Pos Control Positive (Positive)
[2020-12-31 04:31] LABS: HPV mRNA E6/E7 rflx Not Detected (Not Detected)
== END 2020-12-28 08:40 | disposition home or self-care (01) ==
LOC: HO.LAB 08:39
PROVIDERS: PCP Internal Medicine; Visit Provider Advanced Practice Midwife
DX: Z01.419 Encounter for gynecological examination (general) (routine) without abnormal findings (principal); Z11.51 Encounter for screening for human papillomavirus (HPV); Z11.3 Encounter for screening for infections with a predominantly sexual mode of transmission; Z20.2 Contact with and (suspected) exposure to infections with a predominantly sexual mode of transmission
CPT/HCPCS: 87480; 87491; 87510; 87591; 87624; 87660; 88142

== ENCOUNTER 2020-12-30 09:57 | Outpatient (REF) | payer MEDICAID, SELFPAY ==
[2020-12-30 11:13] LABS: HBc Num1 0.05 S/CO (0.00-0.79); HIV AB/AG Nonreactive (Nonreactive); HIV Num 1 0.06 S/CO (0.00-0.99); Hepatitis B Core Antibody Nonreactive (Nonreactive); ~HepC Num1 0.12 S/CO (0.00-0.79); ~Hepatitis C Antibody Nonreactive (Nonreactive)
[2020-12-30 11:28] LABS: Syphilis Screen Nonreactive (Nonreactive)
== END 2020-12-30 09:58 | disposition home or self-care (01) ==
LOC: HO.MDS 09:57
PROVIDERS: Absent Provider Advanced Practice Midwife; PCP Internal Medicine; Visit Provider Hospitalist
DX: J45.50 Severe persistent asthma, uncomplicated (principal); Z20.2 Contact with and (suspected) exposure to infections with a predominantly sexual mode of transmission
CPT/HCPCS: 36415; 86704; 86780; 86803; 87389; 96372; J2357

== ENCOUNTER 2021-01-13 11:57 | Outpatient (REF) | payer MEDICAID, SELFPAY | END 2021-01-13 11:58 | disposition home or self-care (01) | LOC: HO.MDS 11:57 | PROVIDERS: PCP Internal Medicine; Visit Provider Hospitalist | DX: J45.50 Severe persistent asthma, uncomplicated (principal) | CPT/HCPCS: 96372; J2357 ==

== ENCOUNTER 2021-01-25 08:46 | Emergency (ER) | payer MEDICAID, SELFPAY ==
[2021-01-25 08:54] VITALS: BP 128/71; PULSE 86; RESP 20; TEMP 36.6; O2SAT 96; BMI 38.3
--- NOTE | 2021-01-25 10:53 | ED_ITS ---
HPI - URI/Sore Throat General Chief Complaint: General Medical Stated Complaint: sore throat ear pain Time Seen by Provider: 01/25/21 10:47 Source: patient Mode of arrival: ambulatory Limitations: no limitations History of Present Illness HPI Narrative: 60-year-old female presenting to the ED with URI symptoms which include intermittent headaches, nasal congestion/rhinorrhea with clear/yellow colored mucus production, sore throat, bilateral ear pain and a dry cough for the past 5 days worse today. Reports that she is vaccinated to COVID and to the flu. Denies recent travel or sick contacts. Denies any fevers, chills, dizziness, neck pain/stiffness, trouble swallowing or breathing, productive cough, chest pain or shortness of breath, rashes, nausea/vomiting/diarrhea constipation, abdominal pain or back pain or any other symptoms complaints or concerns at this time. MD elicited complaint: cough, sore throat, rhinorrhea, nasal congestion and other (And ear pain) Onset (ago): day(s) (5) Consistency: constant and progressively worsening Severity: moderate Description of mucous: clear, watery and yellow Able to tolerate fluids by mouth: Yes Exacerbating factors: swallowing Relieving factors: nothing Associated symptoms: headache, rhinorrhea, nasal congestion, sore throat, cough and ear pain Treatments prior to arrival: none Related Data Home Medications Medication Instructions Recorded Confirmed clonazepam 0.5 mg tablet 0.5 mg PO DAILY 12/28/19 10/04/20 hydroxyzine HCl 25 mg tablet 25 mg PO BEDTIME 12/28/19 10/04/20 omalizumab 150 mg/mL subcutaneous 150 mg SUBCUT Q2W 12/28/19 10/04/20 syringe (Xolair) metoprolol succinate 25 mg 12.5 mg PO DAILY 05/18/20 10/04/20 tablet,extended release 24 hr omega-3 fatty acids 1,000 mg 1,000 mg PO DAILY 05/18/20 10/04/20 capsule (Fish Oil Concentrate) ferrous sulfate 325 mg (65 mg 325 mg PO DAILY 10/04/20 10/04/20 iron) tablet Previous Rx's Medication Instructions Recorded benzonatate 200 mg capsule 200 mg PO BID PRN 30 Days #45 cap 12/28/19 albuterol sulfate 2.5 mg (3 mL) INHALATION Q6H PRN 07/28/20 30 Days #180 ml epinephrine 0.3 mg/0.3 mL 0.3 mg (0.3 mL) IM Q10M PRN 30 07/28/20 injection, auto-injector (EpiPen Days #2 ea 2-Rell) ibuprofen 600 mg tablet 600 mg PO Q8H PRN #20 tab 07/30/20 bisacodyl 5 mg tablet,delayed 10 mg PO BEDTIME 30 Days #60 tab 09/20/20 release (Dulcolax (bisacodyl)) pantoprazole 40 mg tablet,delayed 40 mg PO BID 30 Days #60 tab 09/20/20 release (Protonix) sucralfate 1 gram tablet 1 g PO BID #60 tab 09/20/20 albuterol sulfate 90 mcg/actuation 2 puff INHALATION Q6H PRN 30 Days 10/04/20 aerosol inhaler (ProAir HFA) #18 g fluticasone furoate 200 1 inh INHALATION DAILY 90 Days #3 10/04/20 mcg-vilanterol 25 mcg/dose ea inhalation powder (Breo Ellipta) ipratropium bromide 17 2 puff INHALATION Q8H 30 Days 10/04/20 mcg/actuation HFA aerosol inhaler #12.9 g (Atrovent HFA) loratadine 10 mg tablet (Claritin) 10 mg PO DAILY 90 Days #90 tab 10/04/20 cyclobenzaprine 10 mg tablet 10 mg PO TID PRN #10 tab 12/07/20 ibuprofen 600 mg tablet 600 mg PO Q8H PRN #20 tab 12/07/20 lidocaine 5 % topical patch 1 patch TOPICAL DAILY #15 ea 12/07/20 tramadol 50 mg tablet 50 mg PO BID PRN #5 tab 12/07/20 azithromycin 250 mg tablet See Rx Instructions .ROUTE 01/25/21 .COMPLEX #6 tab oxymetazoline 0.05 % nasal mist 2 spray INTRANASAL BID PRN 3 Days 01/25/21 (Afrin (oxymetazoline)) #15 ml Allergies Allergy/AdvReac Type Severity Reaction Status Date / Time Penicillins Allergy Severe hives, Verified 12/08/20 16:57 swelling pollen extracts [POLLEN] Allergy Severe ITCHING Verified 12/08/20 16:57 peanut [PEANUT] Allergy Intermediate RASH Verified 12/08/20 16:57 penicillins Allergy Unknown Uncoded 12/08/20 16:57 Review of Systems Review of Systems: Constitutional : No Weight loss, No Fever, No Chills, No Night Sweats, No Fatigue, No Malaise ENT/Mouth : No Hearing loss, + Ear Pain, + Nasal Congestion, No Sinus Pain, No Hoarseness, + sore throat, + Rhinorrhea, No Swallowing Difficulty Eyes: No Eye Pain, No Swelling, No Redness, No Foreign Body, No Discharge, No Vision Changes Cardiovascular : No Chest Pain, No SOB, No Dyspnea on Exertion, No Orthopnea, No Edema, No Palpitations Respiratory : + Cough, No Sputum, No Wheezing, No Smoke Exposure, No Dyspnea Gastrointestinal : No Nausea, No Vomiting, No Diarrhea, No Constipation, No abdominal Pain, No Hematochezia, No Melena Genitourinary : no irregular bleeding, No Dysuria, No Urinary Frequency, No Hematuria, No Urinary Incontinence, No Urgency, No Flank Pain, No Urinary Flow Changes, No Hesitancy Musculoskeletal : No joint pain, No Myalgias, No Joint Swelling Skin : No Skin Lesions, No rash Neuro : No Weakness, No Numbness, No Paresthesias, No Loss of Consciousness, No Dizziness, + Headache Psych : No Anxiety/Panic, No Depression, No SI/HI/AH/VH, No Social Issues, Heme/Lymph: No Bruising, No Bleeding,No Lymphadenopathy Endocrine : No Polyuria, No Polydipsia, No Temperature Intolerance Yes all other systems are reviewed and are negative [facility] Past Medical History Attestation statement: The following information was validated with the patient. Medical History Asthma Bronchitis Chronic allergic rhinitis Morbid obesity with BMI of 40.0-44.9, adult GEORGIE (obstructive sleep apnea) Tubular adenoma of colon Surgical History History of section Hx of colonoscopy Family History Family History Father No problems noted. 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 Blood pressure normal. Heart rate normal. Respiration rate normal. Temperature normal. Oxygen saturation normal. Appearance: Alert. Oriented X3. No acute distress. Head: Normal external exam. Normocephalic. Atraumatic. Eyes: PERRLA. EOMI. Conjunctiva and sclera normal. Eyelids normal. ENT: EAC normal. TM's Normal. Posterior pharynx mildly erythematous. No exudate is noted. The rest of the pharynx is within normal limits. Uvula midline. Moist mucous membranes. No trismus noted. No drooling noted. No muffled voice noted. Neck: Normal inspection. Neck supple. FROM. No adenopathy. Thyroid Normal. No meningeal signs. No neck mass noted. CVS: Normal heart rate and rhythm. Heart sound normal. Pulses normal throughout. No murmurs/rales/gallops. Respiratory: No respiratory distress. Painless inspiration. Breath sounds normal. No wheezes/rales/rhonchi noted. Chest nontender. No accessory muscle usage noted or decreased air movement noted. Back: Full range of motion noted. No rashes/lesion/induration/fluctuance or signs of infection noted. Skin: Skin warm and dry. Normal skin color. Normal skin turgor. No rashes/lesions/lacerations noted. Extremities: Extremities exhibit normal range of motion. Extremities nontender. Neuro: Oriented X 3. No motor deficit. No sensory deficit. Reflexes normal. Normal steady gait. No focal neuro deficits noted. Vascular: + radial pulses/+ 2 distal pedal pulses/+2 dorsalis pedis b/l. Normal cap refill. No cyanosis noted to upper extremity nails and lower extremity toes nails. Course Course Course Narrative: 60-year-old female presenting to the ED with URI symptoms which include intermittent headaches, nasal congestion/rhinorrhea with clear/yellow colored mucus production, sore throat, bilateral ear pain and a dry cough for the past 5 days worse today. Reports that she is vaccinated to COVID and to the flu. Denies recent travel or sick contacts. Denies any fevers, chills, dizziness, neck pain/stiffness, trouble swallowing or breathing, productive cough, chest pain or shortness of breath, rashes, nausea/vomiting/diarrhea constipation, abdominal pain or back pain or any other symptoms complaints or concerns at this time. Will obtain a strep/COVID/RSV/flu swab and DC home with antibiotics for possible sinusitis/pharyngitis and to return if any new or worsening symptoms to self isolate at least until 7-10 days after his symptoms started and I will call her with only positive results for strep/COVID/RSV or flu and to return if any new or worsening 7 follow-up with primary care provider. Patient understands agrees with this plan. MDM - URI/Sore Throat Medical Records Attestation: I reviewed the patient's medical records. Lab Data Attestation: I reviewed the patient's lab results. Labs: Lab Results 01/25/21 01/25/21 Range/Units 11:02 11:03 Influenza Type A (PCR) NEGATIVE (Negative) Influenza Type B (PCR) NEGATIVE (Negative) RSV RNA Qual (PCR) NEGATIVE (Negative) SARS-CoV-2 RNA (RT-PCR) NEGATIVE (Negative) S. pyogenes GrpA AURELIO Negative (Negative) Discharge Plan Discharge Clinical Impression: Sinusitis, Acute upper respiratory infection Patient Disposition: Home, Self-Care Instructions: Sinusitis (ED), Upper Respiratory Infection (ED) Additional Instructions: Based on your symptoms and history we have sent a COVID-19. Although your RESULT IS PENDING at this time. RESULTS should return within 2-4 hours. At this time you will be contacted with ONLY POSITIVE results. -Please wait until we contact you for your results. At this time you will be okay for discharge. Please plan for self quarantine for up to 14 days. Do not expose yourself to others. You may not go to work. If testing does come back negative you may return to activities as long as you are no longer having any symptoms for at least 3 days. Please continue to follow cold instructions and wash your hands frequently. You may take Tylenol as directed on the bottle for pain or fever. Patient seen in the emergency department on -------- and should be excused from work until negative test results AND until 72 hours without any symptoms AND at least 10 days have passed since symptoms first appeared or since last exposure to COVID-19 positive patient CDC Guidelines for home isolation: - Stay away from others - WEAR A MASK if you are sick AND STAY HOME - Cover your mouth and nose with a tissue when you cough or sneeze. Dispose of tissues in a lined trash can and wash your hands immediately with soap and water for at least 20 seconds. If soap and water are not available, clean hands with alcohol-based hand it program manager that contains at least 60% alcohol. - Clean your hands often with soap and water for at least 20 seconds - Avoid touching your eyes, nose and mouth with unwashed hands - Do not share dishes, drinking glasses, cups, eating utensils, towels, or bedding with other people in your home. After using these items, wash them thoroughly with soap and water or put in the family intervention specialist. - Clean high-touch surfaces in your isolation area ( sick room and bathroom) every day; let a caregiver clean and disinfect high-touch surfaces in other areas of the home. Clean the area or item with soap and water or another detergent if it is dirty. Then, use a household disinfectant. - Limit contact with pets and animals: If you must care for a pet, wash your hands before and after interacting with them). Prescriptions: New azithromycin 250 mg tablet See Rx Instructions .ROUTE .COMPLEX Qty: 6 RF: 0 Afrin (oxymetazoline) 0.05 % mist 2 spray intranasal BID PRN (Reason: nasal congestion) 3 Days Qty: 15 RF: 0 No Action albuterol sulfate 2.5 mg /3 mL (0.083 %) solution for nebulization 2.5 mg inhalation Q6H PRN (Reason: shortness of breath or wheezing) 30 Days Qty: 180 RF: 12 epinephrine [EpiPen 2-Rell] 0.3 mg/0.3 mL auto-injector 0.3 mg IM Q10M PRN (Reason: anaphylaxis) 30 Days Qty: 2 RF: 6 ibuprofen 600 mg tablet 600 mg PO Q8H PRN (Reason: pain) Qty: 20 RF: 0 cyclobenzaprine 10 mg tablet 10 mg PO TID PRN (Reason: muscle spasm) Qty: 10 RF: 0 ibuprofen 600 mg tablet 600 mg PO Q8H PRN (Reason: pain) Qty: 20 RF: 0 lidocaine 5 % adhesive patch,medicated 1 patch topical DAILY Qty: 15 RF: 0 tramadol 50 mg tablet 50 mg PO BID PRN (Reason: severe pain (scale score 7-10)) Qty: 5 RF: 0 metoprolol succinate 25 mg tablet extended release 24 hr 12.5 mg PO DAILY RF: 0 omega-3 fatty acids [Fish Oil Concentrate] 1,000 mg capsule 1,000 mg PO DAILY RF: 0 clonazepam 0.5 mg tablet 0.5 mg PO DAILY RF: 0 Xolair 150 mg/mL syringe 150 mg subcut Q2W RF: 0 hydroxyzine HCl 25 mg tablet 25 mg PO BEDTIME RF: 0 benzonatate 200 mg capsule 200 mg PO BID PRN (Reason: cough) 30 Days Qty: 45 RF: 3 sucralfate 1 gram tablet 1 g PO BID Qty: 60 RF: 6 pantoprazole [Protonix] 40 mg tablet,delayed release (DR/EC) 40 mg PO BID 30 Days Qty: 60 RF: 6 bisacodyl [Dulcolax (bisacodyl)] 5 mg tablet,delayed release (DR/EC) 10 mg PO BEDTIME 30 Days Qty: 60 RF: 6 ferrous sulfate 325 mg (65 mg iron) tablet 325 mg PO DAILY RF: 0 albuterol sulfate [ProAir HFA] 90 mcg/actuation HFA aerosol inhaler 2 puff inhalation Q6H PRN (Reason: shortness of breath or wheezing) 30 Days Qty: 18 RF: 11 Breo Ellipta 200-25 mcg/dose blister with device 1 inh inhalation DAILY 90 Days Qty: 3 RF: 3 Atrovent HFA 17 mcg/actuation HFA aerosol inhaler 2 puff inhalation Q8H 30 Days Qty: 12.9 RF: 11 loratadine [Claritin] 10 mg tablet 10 mg PO DAILY 90 Days Qty: 90 RF: 3 Referrals: Nigel Dixon MD [Primary Care Provider] - 2 days Stand Alone Forms: Work/School Release Interventions: ED Discharge Assessment Last Done: 01/25/21 11:09 Discharge Date/Time: 01/25/21 11:10
[2021-01-25 11:22] LABS: IDNOW Serial# 08D9AD1C; Strep A Nucleic Acid Negative (Negative)
[2021-01-25 13:14] LABS: Influenza A PCR NEGATIVE (Negative); Influenza B PCR NEGATIVE (Negative); Resp Syncy Virus RNA Qual PCR NEGATIVE (Negative); SARS COV2 PCR INHOUSE NEGATIVE (Negative)
== END 2021-01-25 11:10 | disposition home or self-care (01) ==
PROVIDERS: Physician Assistant Medical; Emergency Provider Emergency Medicine; PCP Internal Medicine
DX: J32.9 Chronic sinusitis, unspecified (principal); J06.9 Acute upper respiratory infection, unspecified; J02.9 Acute pharyngitis, unspecified; H92.03 Otalgia, bilateral; R51.9 Headache, unspecified; Z20.822 Contact with and (suspected) exposure to COVID-19; Z79.899 Other long term (current) drug therapy; Z87.891 Personal history of nicotine dependence
CPT/HCPCS: 0241U; 36415; 87651; 99283

== ENCOUNTER 2021-01-27 10:55 | Outpatient (REF) | payer MEDICAID, SELFPAY | END 2021-01-27 10:56 | disposition home or self-care (01) | LOC: HO.MDS 10:55 | PROVIDERS: Visit Provider Hospitalist | DX: J45.50 Severe persistent asthma, uncomplicated (principal) | CPT/HCPCS: 96372; J2357 ==

== ENCOUNTER 2021-02-10 11:48 | Outpatient (REF) | payer MEDICAID, SELFPAY | END 2021-02-10 11:49 | disposition home or self-care (01) | LOC: HO.MDS 11:48 | PROVIDERS: Visit Provider Hospitalist | DX: J45.50 Severe persistent asthma, uncomplicated (principal) | CPT/HCPCS: 96372; J2357 ==

== ENCOUNTER 2021-02-20 09:48 | Outpatient (REF) | payer MEDICAID, SELFPAY ==
--- NOTE | ~2021-02-20 | MM_ITS ---
EXAMINATION: MM DIAGNOSTIC DIGITAL BREAST TOMOSYNTHESIS, BILATERAL US DIAGNOSTIC ULTRASOUND BREAST, RIGHT CLINICAL INFORMATION: Due for yearly. Pea-sized palpable area noted by patient lower breast. Mild tenderness. No discharge. Family history breast cancer, paternal aunt. The lifetime risk of breast cancer based on the Tyrer-Cuzick Model is 10%. COMPARISON: Mammography: 03/19/2020, 04/15/2015. TECHNIQUE: Digital breast tomosynthesis is performed in both the craniocaudal and mediolateral oblique views along with computer-aided detection (CAD). Synthesized 2D images are generated from the tomosynthesis. Additional right CC view is provided. Ultrasound right breast is targeted to the lower breast, area of patient clinical concern. Grayscale imaging and color Doppler without and with harmonics. FINDINGS: The breasts are almost entirely fatty (ACR BI-RADS breast composition Category a). Background stromal and fibroglandular densities are stable. There is no developing density or interval mass or architectural abnormality. There is a stable circumscribed nodule/intramammary node mid upper outer right breast. There is no skin thickening or retraction or coarsening of the Reinaldo's ligaments. The axilla are unremarkable. No significant changes. Ultrasound demonstrates no cystic or solid mass or architectural abnormality. No focal duct ectasia. No skin thickening or edema tracking in soft tissue planes. Results are discussed with the patient at time of visit, using an aqua ammonia operator. MM/MM tomosynthesis diagnostic BI IMPRESSION: 1. No mammographic evidence of malignancy. No significant changes from prior exams. 2. Unremarkable right breast ultrasound. ASSESSMENT: BI-RADS 1: Negative RECOMMENDATION: 1. Patient should be managed based on the clinical impression. If clinically indicated, further evaluation may be considered with surgical consult. Decision to proceed with biopsy should be based on clinical grounds and degree of clinical concern. 2. Otherwise, routine annual screening mammography. This patient's information was entered into a reminder system with a target due date for their next mammogram.
== END 2021-02-20 09:49 | disposition home or self-care (01) ==
LOC: HO.MAMMO 09:48
PROVIDERS: Visit Provider Internal Medicine
DX: N63.13 Unspecified lump in the right breast, lower outer quadrant (principal)
CPT/HCPCS: 76642; 77062; 77066

== ENCOUNTER 2021-03-02 10:32 | Outpatient (REF) | payer MEDICAID, SELFPAY | END 2021-03-02 10:33 | disposition home or self-care (01) | LOC: HO.MDS 10:32 | PROVIDERS: Visit Provider Hospitalist | DX: J45.50 Severe persistent asthma, uncomplicated (principal) | CPT/HCPCS: 96372; J2357 ==

== ENCOUNTER 2021-03-17 08:46 | Outpatient (REF) | payer MEDICAID, SELFPAY | END 2021-03-17 08:47 | disposition home or self-care (01) | LOC: HO.MDS 08:46 | PROVIDERS: Visit Provider Hospitalist | DX: J45.50 Severe persistent asthma, uncomplicated (principal) | CPT/HCPCS: 96372; J2357 ==

== ENCOUNTER 2021-03-31 13:03 | Outpatient (REF) | payer MEDICAID, SELFPAY | END 2021-03-31 13:04 | disposition home or self-care (01) | LOC: HO.MDS 13:03 | PROVIDERS: Visit Provider Hospitalist | DX: J45.50 Severe persistent asthma, uncomplicated (principal) | CPT/HCPCS: 96372; J2357 ==

== ENCOUNTER 2021-04-11 08:24 | Emergency (ER) | payer MEDICAID, SELFPAY ==
--- NOTE | ~2021-04-11 | XR_ITS ---
EXAMINATION: XR RIBS, RIGHT CLINICAL INFORMATION: Injury. Pain. COMPARISON: None TECHNIQUE: 3 views of the right ribs were obtained. Chest one view. FINDINGS: Lungs are clear. No consolidation, pneumothorax, or pleural effusion. The cardiomediastinal silhouette and pulmonary vasculature are normal. Osseous structures are unremarkable. Ribs are intact. No fractures are identified. XR/XR ribs RT min 3V w CXR1V IMPRESSION: Unremarkable chest exam. Unremarkable right rib exam.
[2021-04-11 08:36] VITALS: BP 145/81; PULSE 71; RESP 18; TEMP 36.8; O2SAT 98; BMI 42.4
--- NOTE | 2021-04-11 08:45 | ED_ITS ---
HPI - General Adult General Chief complaint: General Medical Stated complaint: R side pain Time Seen by Provider: 04/11/21 08:43 Source: patient and lang interpreter Mode of arrival: ambulatory Limitations: no limitations and language barrier History of Present Illness HPI narrative: 60-year-old female here with reports of right rib pain after falling into a metal chair 4 days ago. Patient tells me that she tripped over her cat landing on the corner of a metal chair. Since then she has had persistent pain which is worsened with moving and deep breathing. She denies any cough, shortness of breath, fevers, chills. Patient is not on any anticoagulation. She had no head strike or loss of consciousness Related Data Home Medications Medication Instructions Recorded Confirmed clonazepam 0.5 mg tablet 0.5 mg PO DAILY 12/28/19 10/04/20 hydroxyzine HCl 25 mg tablet 25 mg PO BEDTIME 12/28/19 10/04/20 omalizumab 150 mg/mL subcutaneous 150 mg SUBCUT Q2W 12/28/19 10/04/20 syringe (Xolair) metoprolol succinate 25 mg 12.5 mg PO DAILY 05/18/20 10/04/20 tablet,extended release 24 hr omega-3 fatty acids 1,000 mg 1,000 mg PO DAILY 05/18/20 10/04/20 capsule (Fish Oil Concentrate) ferrous sulfate 325 mg (65 mg 325 mg PO DAILY 10/04/20 10/04/20 iron) tablet Previous Rx's Medication Instructions Recorded benzonatate 200 mg capsule 200 mg PO BID PRN 30 Days #45 cap 12/28/19 albuterol sulfate 2.5 mg (3 mL) INHALATION Q6H PRN 07/28/20 30 Days #180 ml epinephrine 0.3 mg/0.3 mL 0.3 mg (0.3 mL) IM Q10M PRN 30 07/28/20 injection, auto-injector (EpiPen Days #2 ea 2-Rell) ibuprofen 600 mg tablet 600 mg PO Q8H PRN #20 tab 07/30/20 bisacodyl 5 mg tablet,delayed 10 mg PO BEDTIME 30 Days #60 tab 09/20/20 release (Dulcolax (bisacodyl)) pantoprazole 40 mg tablet,delayed 40 mg PO BID 30 Days #60 tab 07/27/21 release (Protonix) sucralfate 1 gram tablet 1 g PO BID #60 tab 09/20/20 albuterol sulfate 90 mcg/actuation 2 puff INHALATION Q6H PRN 30 Days 10/04/20 aerosol inhaler (ProAir HFA) #18 g fluticasone furoate 200 1 inh INHALATION DAILY 90 Days #3 10/04/20 mcg-vilanterol 25 mcg/dose ea inhalation powder (Breo Ellipta) ipratropium bromide 17 2 puff INHALATION Q8H 30 Days 10/04/20 mcg/actuation HFA aerosol inhaler #12.9 g (Atrovent HFA) loratadine 10 mg tablet (Claritin) 10 mg PO DAILY 90 Days #90 tab 10/04/20 cyclobenzaprine 10 mg tablet 10 mg PO TID PRN #10 tab 12/07/20 ibuprofen 600 mg tablet 600 mg PO Q8H PRN #20 tab 12/07/20 lidocaine 5 % topical patch 1 patch TOPICAL DAILY #15 ea 12/07/20 tramadol 50 mg tablet 50 mg PO BID PRN #5 tab 12/07/20 azithromycin 250 mg tablet See Rx Instructions .ROUTE 01/25/21 .COMPLEX #6 tab oxymetazoline 0.05 % nasal mist 2 spray INTRANASAL BID PRN 3 Days 01/25/21 (Afrin (oxymetazoline)) #15 ml cyclobenzaprine 10 mg tablet 10 mg PO Q8H PRN #10 tab 04/11/21 lidocaine 5 % topical patch 1 patch TOPICAL DAILY #15 ea 04/11/21 (Lidoderm) naproxen 500 mg tablet 500 mg PO BID PRN #20 tab 04/11/21 Allergies Allergy/AdvReac Type Severity Reaction Status Date / Time Penicillins Allergy Severe hives, Verified 04/11/21 08:35 swelling pollen extracts [POLLEN] Allergy Severe ITCHING Verified 04/11/21 08:35 peanut [PEANUT] Allergy Intermediate RASH Verified 04/11/21 08:35 penicillins Allergy Unknown Unknown Uncoded 04/11/21 08:35 Review of Systems Review of Systems: Yes all other systems are reviewed and are negative Constitutional: Constitutional: Reports no additional constitutional complaints, Denies body ache(s), Denies chills, Denies fever(s), Denies headache(s) and Denies weakness Eyes: Eyes: Reports no additional eye complaints and Denies change in vision ENT: Reports system reviewed and no additional complaints, except as documented, Denies dizziness, Denies headache(s), Denies nasal congestion, Denies nasal discharge and Denies neck pain Cardiovascular: Cardiovascular: Reports no additional cardiovascular complaints, Reports chest pain (rib pain), Denies leg edema and Denies dyspnea Respiratory: Respiratory: Reports no additional respiratory complaints, Denies cough and Denies dyspnea Gastrointestinal: Gastrointestinal: Reports no additional gastrointestinal complaints, Denies abdominal pain, Denies diarrhea, Denies nausea and Denies vomiting Genitourinary: Genitourinary: Reports no additional female genitourinary complaints and Denies urinary incontinence Musculoskeletal: Musculoskeletal: Reports no additional musculoskeletal complaints, Denies back pain, Denies arthralgias, Denies joint swelling, Denies neck pain, Denies numbness and Denies tingling Integumentary/Breasts: Skin/Breast: Reports system reviewed and no additional complaints, except as docu and Denies rash Neurologic: Reports system reviewed and no additional complaints, except as documented, Denies Abnormal speech present, Denies dizziness, Denies headache(s), Denies numbness, Denies tingling and Denies weakness PMFSH Past Medical History Attestation statement: The following information was validated with the patient. Source: old records reviewed and nursing notes reviewed Medical History Asthma Bronchitis Chronic allergic rhinitis Morbid obesity with BMI of 40.0-44.9, adult GEORGIE (obstructive sleep apnea) Tubular adenoma of colon Surgical History History of section Hx of colonoscopy Family History Family History Father No problems noted. 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 Physical Exam ED Vital Signs: Vital Signs - 24 hr 04/11/21 08:36 Temperature 98.3 F Pulse Rate 71 Respiratory Rate 18 Blood Pressure 145/81 H Pulse Oximetry 98 BMI result Body Mass Index 42.4 Const General: cooperative, healthy appearing, comfortable and no acute distress Orientation/consciousness: patient oriented x3 Limitations: no limitations HENMT Head: Yes normal to inspection Ears: hearing grossly normal bilaterally General nose exam: Normal external nose present Face and sinus: Yes normal facial exam Mouth: Normal oral and palatal mucosa present Teeth and gingiva: dentition normal Throat: Yes posterior oropharynx normal and Yes tonsils normal Eyes General: appearance normal, both eyes and all related structures Pupils: Equal, round and reactive pupils present Neck Other: No midline tenderness, step-offs deformities Neck: Yes normal visual inspection and Yes full ROM Chest Other: Right chest wall tender to palpate. No ecchymosis or crepitus noted. Resp Effort & Inspection: normal respiratory effort Auscultation: clear to auscultation bilaterally Cardio Rate: regular rate Rhythm: regular rhythm Peripheral pulses: Peripheral pulses 2+ throughout GI Inspection: Yes normal to inspection Palpation (GI): Soft to palpation and nontender Auscultation: normal bowel sounds General: Yes no CVA tenderness Back/Spine/Pelvis Back: no CVA tenderness Skin General skin exam: no rashes or lesions noted Neuro General: patient oriented x3 Cranial nerves: Yes CN's II-XII intact bilaterally, Yes Equal, round and reactive pupils present, Yes Bilaterally intact EOM present, Yes Nystagmus not present and Yes Normal facial strength present Cognition (Neuro): normal cognition Speech: No Abnormal speech present Gait exam (Neuro): Normal gait present Motor exam (neuro): 5/5 motor strength present throughout Sensory Exam: Normal double simultaneous stimulation for sensation Extrem General: Yes normal to inspection, Yes no pedal edema and Yes no calf tenderness Course Course Course Narrative: 60-year-old female here with right chest wall pain after having an injury 4 days ago. Patient tells me pain is unrelieved with supportive care at home. Patient has tenderness over the right chest wall with no obvious ecchymosis or crepitus. She has no abdominal pain, neck pain or back pain. There was no head strike or loss of consciousness. Will check x-ray, provide analgesia and reassess 0930-x-ray show no bony abnormality. Likely contusion. Reviewed rice, supportive care at home. Reviewed worrisome signs and symptoms of when to return to the emergency department. Comfortable discharge home. Medical Decision Making Medical Records Medical records reviewed: Yes I reviewed the patient's medical records. Lab Data Lab results reviewed: Yes I reviewed the patient's lab results. Imaging Data ribs xray: Attestation: I personally reviewed and interpreted this imaging study as follows: Radiologist's impression: [address] [address] XRay Report Signed Patient: Rita Patel MR#: [id number] : 1960 Acct:[id number] Age/Sex: 60 / F ADM Date: 04/11/21 Loc: .ED Attending Dr: Ordering Physician: Kerry Sanchez NP Date of Service: 04/11/21 Procedure(s): XR ribs RT min 3V w CXR1V Accession Number(s): [id number] cc: Kerry Sanchez NP~ EXAMINATION: XR RIBS, RIGHT CLINICAL INFORMATION: Injury. Pain. COMPARISON: None TECHNIQUE: 3 views of the right ribs were obtained. Chest one view. FINDINGS: Lungs are clear. No consolidation, pneumothorax, or pleural effusion. The cardiomediastinal silhouette and pulmonary vasculature are normal. Osseous structures are unremarkable. Ribs are intact. No fractures are identified. XR/XR ribs RT min 3V w CXR1V IMPRESSION: Unremarkable chest exam. ? Unremarkable right rib exam. ? Discharge Plan Discharge Clinical Impression: Contusion of rib on right side Patient Disposition: Home, Self-Care Instructions: Rib Contusion (ED) Additional Instructions: Ice to the area Splinting with movement, deep breathing and coughing Follow-up with primary care doctor in 1 week for persistent symptoms Prescriptions: New naproxen 500 mg tablet 500 mg PO BID PRN (Reason: pain) Qty: 20 0RF cyclobenzaprine 10 mg tablet 10 mg PO Q8H PRN (Reason: muscle spasm) Qty: 10 0RF lidocaine [Lidoderm] 5 % adhesive patch,medicated 1 patch topical DAILY Qty: 15 0RF Rx Instructions: leave on most painful area for up to 12 hrs No Action albuterol sulfate 2.5 mg /3 mL (0.083 %) solution for nebulization 2.5 mg inhalation Q6H PRN (Reason: shortness of breath or wheezing) 30 Days Qty: 180 12RF epinephrine [EpiPen 2-Rell] 0.3 mg/0.3 mL auto-injector 0.3 mg IM Q10M PRN (Reason: anaphylaxis) 30 Days Qty: 2 6RF Rx Instructions: for 2 doses ibuprofen 600 mg tablet 600 mg PO Q8H PRN (Reason: pain) Qty: 20 0RF cyclobenzaprine 10 mg tablet 10 mg PO TID PRN (Reason: muscle spasm) Qty: 10 0RF ibuprofen 600 mg tablet 600 mg PO Q8H PRN (Reason: pain) Qty: 20 0RF lidocaine 5 % adhesive patch,medicated 1 patch topical DAILY Qty: 15 0RF Rx Instructions: leave on most painful area for up to 12 hrs tramadol 50 mg tablet 50 mg PO BID PRN (Reason: severe pain (scale score 7-10)) Qty: 5 0RF azithromycin 250 mg tablet See Rx Instructions .ROUTE .COMPLEX Qty: 6 0RF Rx Instructions: take 500 mg today (day 1), then 250 mg for 4 days (days 2-5) Afrin (oxymetazoline) 0.05 % mist 2 spray intranasal BID PRN (Reason: nasal congestion) 3 Days Qty: 15 0RF metoprolol succinate 25 mg tablet extended release 24 hr 12.5 mg PO DAILY 0RF omega-3 fatty acids [Fish Oil Concentrate] 1,000 mg capsule 1,000 mg PO DAILY 0RF clonazepam 0.5 mg tablet 0.5 mg PO DAILY 0RF Xolair 150 mg/mL syringe 150 mg subcut Q2W 0RF hydroxyzine HCl 25 mg tablet 25 mg PO BEDTIME 0RF benzonatate 200 mg capsule 200 mg PO BID PRN (Reason: cough) 30 Days Qty: 45 3RF sucralfate 1 gram tablet 1 g PO BID Qty: 60 6RF pantoprazole [Protonix] 40 mg tablet,delayed release (DR/EC) 40 mg PO BID 30 Days Qty: 60 6RF Rx Instructions: We were going to try Aciphex, but pt wants to stay on protonix bisacodyl [Dulcolax (bisacodyl)] 5 mg tablet,delayed release (DR/EC) 10 mg PO BEDTIME 30 Days Qty: 60 6RF ferrous sulfate 325 mg (65 mg iron) tablet 325 mg PO DAILY 0RF albuterol sulfate [ProAir HFA] 90 mcg/actuation HFA aerosol inhaler 2 puff inhalation Q6H PRN (Reason: shortness of breath or wheezing) 30 Days Qty: 18 11RF Breo Ellipta 200-25 mcg/dose blister with device 1 inh inhalation DAILY 90 Days Qty: 3 3RF Atrovent HFA 17 mcg/actuation HFA aerosol inhaler 2 puff inhalation Q8H 30 Days Qty: 12.9 11RF loratadine [Claritin] 10 mg tablet 10 mg PO DAILY 90 Days Qty: 90 3RF Referrals: Nigel Dixon MD [Primary Care Provider] - 1 week (for persistent symptoms ) Print Language: Turkish
[2021-04-11] MEDS: Ibuprofen 600 MG TABLET PO (09:04)
== END 2021-04-11 10:13 | disposition home or self-care (01) ==
PROVIDERS: Emergency Provider Emergency Medicine; PCP Internal Medicine
DX: S20.211A Contusion of right front wall of thorax, initial encounter (principal); R07.81 Pleurodynia; W01.0XXA Fall on same level from slipping, tripping and stumbling without subsequent striking against object, initial encounter; Y93.9 Activity, unspecified; Y92.9 Unspecified place or not applicable; Y99.9 Unspecified external cause status; F17.210 Nicotine dependence, cigarettes, uncomplicated; Z71.6 Tobacco abuse counseling
CPT/HCPCS: 71101; 99283

== ENCOUNTER 2021-04-14 11:06 | Outpatient (REF) | payer MEDICAID, SELFPAY | END 2021-04-14 11:07 | disposition home or self-care (01) | LOC: HO.MDS 11:06 | PROVIDERS: Visit Provider Hospitalist | DX: J45.50 Severe persistent asthma, uncomplicated (principal) | CPT/HCPCS: 96372; J2357 ==

== ENCOUNTER 2021-04-28 10:40 | Outpatient (REF) | payer MEDICAID, SELFPAY | END 2021-04-28 10:41 | disposition home or self-care (01) | LOC: HO.MDS 10:40 | PROVIDERS: Visit Provider Hospitalist | DX: J45.50 Severe persistent asthma, uncomplicated (principal) | CPT/HCPCS: 96372; J2357 ==

== ENCOUNTER 2021-05-11 12:13 | Outpatient (REF) | payer MEDICAID, SELFPAY | END 2021-05-11 12:14 | disposition home or self-care (01) | LOC: HO.MDS 12:13 | PROVIDERS: Visit Provider Hospitalist | DX: J45.50 Severe persistent asthma, uncomplicated (principal) | CPT/HCPCS: 96372; J2357 ==

== ENCOUNTER 2021-05-24 10:10 | Outpatient (REF) | payer MEDICAID, SELFPAY | END 2021-05-24 10:11 | disposition home or self-care (01) | LOC: HO.MDS 10:10 | PROVIDERS: Visit Provider Hospitalist | DX: J45.50 Severe persistent asthma, uncomplicated (principal) | CPT/HCPCS: 96372; J2357 ==

== ENCOUNTER → 2021-05-26 10:12 | Outpatient (BNVA) | payer MEDICAID, SELFPAY | PROVIDERS: PCP Internal Medicine; Visit Provider Hospitalist | DX: J30.9 Allergic rhinitis, unspecified (principal); J45.51 Severe persistent asthma with (acute) exacerbation; G47.33 Obstructive sleep apnea (adult) (pediatric); K21.9 Gastro-esophageal reflux disease without esophagitis | CPT/HCPCS: 99212 ==

== ENCOUNTER 2021-06-07 12:15 | Outpatient (REF) | payer MEDICAID, SELFPAY | END 2021-06-07 12:16 | disposition home or self-care (01) | LOC: HO.MDS 12:15 | PROVIDERS: Visit Provider Hospitalist | DX: J45.50 Severe persistent asthma, uncomplicated (principal) | CPT/HCPCS: 96372; J2357 ==

== ENCOUNTER 2021-06-11 17:52 | Emergency (ER) | payer MEDICAID, SELFPAY ==
[2021-06-11 18:34] VITALS: BP 130/72; PULSE 70; RESP 12; TEMP 36.3; O2SAT 100; BMI 44.4
--- NOTE | 2021-06-11 21:20 | ED_ITS ---
HPI - General Adult General Chief complaint: Neck Pain/Injury Stated complaint: neck pain Related Data Home Medications Medication Instructions Recorded Confirmed clonazepam 0.5 mg tablet 0.5 mg PO DAILY 12/28/19 10/04/20 hydroxyzine HCl 25 mg tablet 25 mg PO BEDTIME 12/28/19 10/04/20 omalizumab 150 mg/mL subcutaneous 150 mg SUBCUT Q2W 12/28/19 10/04/20 syringe (Xolair) metoprolol succinate 25 mg 12.5 mg PO DAILY 05/18/20 10/04/20 tablet,extended release 24 hr omega-3 fatty acids 1,000 mg 1,000 mg PO DAILY 05/18/20 10/04/20 capsule (Fish Oil Concentrate) ferrous sulfate 325 mg (65 mg 325 mg PO DAILY 10/04/20 10/04/20 iron) tablet ezetimibe 10 mg tablet (Zetia) 10 mg PO DAILY 05/26/21 Previous Rx's Medication Instructions Recorded benzonatate 200 mg capsule 200 mg PO BID PRN 30 Days #45 cap 12/28/19 epinephrine 0.3 mg/0.3 mL 0.3 mg (0.3 mL) IM Q10M PRN 30 07/28/20 injection, auto-injector (EpiPen Days #2 ea 2-Rell) bisacodyl 5 mg tablet,delayed 10 mg PO BEDTIME 30 Days #60 tab 09/20/20 release (Dulcolax (bisacodyl)) fluticasone furoate 200 1 inh INHALATION DAILY 90 Days #3 10/04/20 mcg-vilanterol 25 mcg/dose ea inhalation powder (Breo Ellipta) ipratropium bromide 17 2 puff INHALATION Q8H 30 Days 10/04/20 mcg/actuation HFA aerosol inhaler #12.9 g (Atrovent HFA) loratadine 10 mg tablet (Claritin) 10 mg PO DAILY 90 Days #90 tab 10/04/20 ibuprofen 600 mg tablet 600 mg PO Q8H PRN #20 tab 12/07/20 lidocaine 5 % topical patch 1 patch TOPICAL DAILY #15 ea 12/07/20 tramadol 50 mg tablet 50 mg PO BID PRN #5 tab 12/07/20 oxymetazoline 0.05 % nasal mist 2 spray INTRANASAL BID PRN 3 Days 01/25/21 (Afrin (oxymetazoline)) #15 ml cyclobenzaprine 10 mg tablet 10 mg PO Q8H PRN #10 tab 04/11/21 ibuprofen 600 mg tablet 600 mg PO Q8H PRN #20 tab 04/11/21 lidocaine 5 % topical patch 1 patch TOPICAL DAILY #15 ea 04/11/21 (Lidoderm) albuterol sulfate 2.5 mg (3 mL) INHALATION Q6H PRN 04/12/21 #150 ml albuterol sulfate 90 mcg/actuation 2 puff INHALATION Q6H PRN #8.5 g 04/12/21 aerosol inhaler (ProAir HFA) pantoprazole 40 mg tablet,delayed 40 mg PO BID #60 tab 05/08/21 release sucralfate 1 gram tablet 1 g PO BID #60 tab 05/08/21 azelastine 137 mcg (0.1 %) nasal 2 spray INTRANASAL BID 30 Days #30 05/26/21 spray aerosol ml levocetirizine 5 mg tablet (Xyzal) 5 mg PO DAILY #30 tab 05/26/21 Allergies Allergy/AdvReac Type Severity Reaction Status Date / Time Penicillins Allergy Severe hives, Verified 05/26/21 10:26 swelling pollen extracts [POLLEN] Allergy Severe ITCHING Verified 05/26/21 10:26 peanut [PEANUT] Allergy Intermediate RASH Verified 05/26/21 10:26 penicillins Allergy Unknown Unknown Uncoded 05/26/21 10:26 [facility] Past Medical History Attestation statement: The following information was validated with the patient. Source: old records reviewed Medical History (Updated 05/26/21 @ 10:46 by Nathanael Lucia MD) Asthma Bronchitis Chronic allergic rhinitis Morbid obesity with BMI of 40.0-44.9, adult GEORGIE (obstructive sleep apnea) Smoking history Tubular adenoma of colon Surgical History History of section Hx of colonoscopy Family History Family History Father No problems noted. 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 Physical Exam ED Vital Signs: Vital Signs - 24 hr 06/11/21 18:34 Temperature 97.4 F Pulse Rate 70 Respiratory Rate 12 Blood Pressure 130/72 Pulse Oximetry 100 BMI result Body Mass Index 44.4 Discharge Plan Discharge Prescriptions: No Action epinephrine [EpiPen 2-Rell] 0.3 mg/0.3 mL auto-injector 0.3 mg IM Q10M PRN (Reason: anaphylaxis) 30 Days Qty: 2 6RF Rx Instructions: for 2 doses albuterol sulfate [ProAir HFA] 90 mcg/actuation HFA aerosol inhaler 2 puff inhalation Q6H PRN (Reason: for wheezing) Qty: 8.5 9RF albuterol sulfate 2.5 mg /3 mL (0.083 %) solution for nebulization 2.5 mg inhalation Q6H PRN (Reason: for wheezing) Qty: 150 9RF pantoprazole 40 mg tablet,delayed release (DR/EC) 40 mg PO BID Qty: 60 6RF sucralfate 1 gram tablet 1 g PO BID Qty: 60 6RF ibuprofen 600 mg tablet 600 mg PO Q8H PRN (Reason: pain) Qty: 20 0RF lidocaine 5 % adhesive patch,medicated 1 patch topical DAILY Qty: 15 0RF Rx Instructions: leave on most painful area for up to 12 hrs tramadol 50 mg tablet 50 mg PO BID PRN (Reason: severe pain (scale score 7-10)) Qty: 5 0RF Afrin (oxymetazoline) 0.05 % mist 2 spray intranasal BID PRN (Reason: nasal congestion) 3 Days Qty: 15 0RF cyclobenzaprine 10 mg tablet 10 mg PO Q8H PRN (Reason: muscle spasm) Qty: 10 0RF lidocaine [Lidoderm] 5 % adhesive patch,medicated 1 patch topical DAILY Qty: 15 0RF Rx Instructions: leave on most painful area for up to 12 hrs ibuprofen 600 mg tablet 600 mg PO Q8H PRN (Reason: pain) Qty: 20 0RF metoprolol succinate 25 mg tablet extended release 24 hr 12.5 mg PO DAILY 0RF omega-3 fatty acids [Fish Oil Concentrate] 1,000 mg capsule 1,000 mg PO DAILY 0RF clonazepam 0.5 mg tablet 0.5 mg PO DAILY 0RF Xolair 150 mg/mL syringe 150 mg subcut Q2W 0RF hydroxyzine HCl 25 mg tablet 25 mg PO BEDTIME 0RF benzonatate 200 mg capsule 200 mg PO BID PRN (Reason: cough) 30 Days Qty: 45 3RF bisacodyl [Dulcolax (bisacodyl)] 5 mg tablet,delayed release (DR/EC) 10 mg PO BEDTIME 30 Days Qty: 60 6RF ferrous sulfate 325 mg (65 mg iron) tablet 325 mg PO DAILY 0RF Breo Ellipta 200-25 mcg/dose blister with device 1 inh inhalation DAILY 90 Days Qty: 3 3RF Atrovent HFA 17 mcg/actuation HFA aerosol inhaler 2 puff inhalation Q8H 30 Days Qty: 12.9 11RF loratadine [Claritin] 10 mg tablet 10 mg PO DAILY 90 Days Qty: 90 3RF ezetimibe [Zetia] 10 mg tablet 10 mg PO DAILY 0RF levocetirizine [Xyzal] 5 mg tablet 5 mg PO DAILY Qty: 30 6RF azelastine 137 mcg (0.1 %) aerosol,spray 2 spray intranasal BID 30 Days Qty: 30 6RF Rx Instructions: administer into each nostril
== END 2021-06-11 22:29 | disposition left against medical advice (07) ==
PROVIDERS: Emergency Provider Emergency Medicine; PCP Internal Medicine
DX: M54.2 Cervicalgia (principal)
CPT/HCPCS: 99283

== ENCOUNTER 2021-06-19 08:46 | Emergency (ER) | payer MEDICAID, SELFPAY ==
--- NOTE | ~2021-06-19 | XR_ITS ---
EXAMINATION: XR CHEST CLINICAL INFORMATION: Cough, shortness of breath COMPARISON: Chest radiographs 04/11/2021, 07/29/2020; CT chest noncontrast 11/20/2018 TECHNIQUE: 2 views of the chest were obtained. FINDINGS: There is no lobar or segmental airspace consolidation or groundglass opacity or effusion. The heart is normal in size. The hilar and mediastinal contours are normal. There is mild coarsening of the bronchiolar markings similar to prior study. No bronchiectasis. No hyperinflation. The costophrenic sulci are clear. The hilar and mediastinal contours and bony structures are unremarkable. XR/XR chest 2V IMPRESSION: Unremarkable examination.
[2021-06-19 09:07] VITALS: BP 130/74; PULSE 97; RESP 18; TEMP 36.8; O2SAT 95; BMI 44.0
--- NOTE | 2021-06-19 09:31 | ED.ASTHMA ---
HPI - Asthma General Chief Complaint: Asthma Stated Complaint: running nose sore throat body aches Time Seen by Provider: 06/19/21 09:31 Source: patient Mode of arrival: ambulatory Limitations: language barrier (French-speaking medical appointment clerk utilized) History of Present Illness HPI Narrative: Patient presents to the emergency department for evaluation of upper respiratory symptoms that started sometime last week. She is experiencing generalized body aches, headache, nasal congestion, cough that is intermittently productive. Feels as though she has a lot of mucus to cough out but can not. She has been using her home inhalers and nebulizer machine with minimal relief. She has taken Tylenol which has not helped with her pain or discomfort. Robitussin with no relief of cough. Cough is worse at night, and feels she can not sleep. She does report that her son was ill with similar symptoms that started after her and however have since subsided. She has been vaccinated for COVID-19 but has not been vaccinated for influenza. Denies any known positive exposures. Denies fevers or shaking chills, sore throat, ear pain, nausea, vomiting, abdominal pain, dysuria, urinary frequency, generalized weakness. Related Data Home Medications Medication Instructions Recorded Confirmed clonazepam 0.5 mg tablet 0.5 mg PO DAILY 12/28/19 10/04/20 hydroxyzine HCl 25 mg tablet 25 mg PO BEDTIME 12/28/19 10/04/20 omalizumab 150 mg/mL subcutaneous 150 mg SUBCUT Q2W 12/28/19 10/04/20 syringe (Xolair) metoprolol succinate 25 mg 12.5 mg PO DAILY 05/18/20 10/04/20 tablet,extended release 24 hr omega-3 fatty acids 1,000 mg 1,000 mg PO DAILY 05/18/20 10/04/20 capsule (Fish Oil Concentrate) ferrous sulfate 325 mg (65 mg 325 mg PO DAILY 10/04/20 10/04/20 iron) tablet ezetimibe 10 mg tablet (Zetia) 10 mg PO DAILY 05/26/21 Previous Rx's Medication Instructions Recorded benzonatate 200 mg capsule 200 mg PO BID PRN 30 Days #45 cap 12/28/19 epinephrine 0.3 mg/0.3 mL 0.3 mg (0.3 mL) IM Q10M PRN 30 07/28/20 injection, auto-injector (EpiPen Days #2 ea 2-Rell) bisacodyl 5 mg tablet,delayed 10 mg PO BEDTIME 30 Days #60 tab 09/20/20 release (Dulcolax (bisacodyl)) fluticasone furoate 200 1 inh INHALATION DAILY 90 Days #3 10/04/20 mcg-vilanterol 25 mcg/dose ea inhalation powder (Breo Ellipta) ipratropium bromide 17 2 puff INHALATION Q8H 30 Days 10/04/20 mcg/actuation HFA aerosol inhaler #12.9 g (Atrovent HFA) loratadine 10 mg tablet (Claritin) 10 mg PO DAILY 90 Days #90 tab 10/04/20 ibuprofen 600 mg tablet 600 mg PO Q8H PRN #20 tab 12/07/20 lidocaine 5 % topical patch 1 patch TOPICAL DAILY #15 ea 12/07/20 tramadol 50 mg tablet 50 mg PO BID PRN #5 tab 12/07/20 oxymetazoline 0.05 % nasal mist 2 spray INTRANASAL BID PRN 3 Days 01/25/21 (Afrin (oxymetazoline)) #15 ml cyclobenzaprine 10 mg tablet 10 mg PO Q8H PRN #10 tab 04/11/21 ibuprofen 600 mg tablet 600 mg PO Q8H PRN #20 tab 04/11/21 lidocaine 5 % topical patch 1 patch TOPICAL DAILY #15 ea 04/11/21 (Lidoderm) albuterol sulfate 2.5 mg (3 mL) INHALATION Q6H PRN 04/12/21 #150 ml albuterol sulfate 90 mcg/actuation 2 puff INHALATION Q6H PRN #8.5 g 04/12/21 aerosol inhaler (ProAir HFA) pantoprazole 40 mg tablet,delayed 40 mg PO BID #60 tab 05/08/21 release sucralfate 1 gram tablet 1 g PO BID #60 tab 05/08/21 azelastine 137 mcg (0.1 %) nasal 2 spray INTRANASAL BID 30 Days #30 05/26/21 spray aerosol ml levocetirizine 5 mg tablet (Xyzal) 5 mg PO DAILY #30 tab 05/26/21 azithromycin 250 mg tablet See Rx Instructions .ROUTE 06/19/21 .COMPLEX #6 tab codeine 6.3 mg-guaifenesin 100 10 ml PO BEDTIME PRN #473 ml 04/25/22 mg/5 mL oral liquid guaifenesin 600 mg tablet, 600 mg PO Q12H PRN #10 tab 06/19/21 extended release 12 hr (Mucinex) prednisone 20 mg tablet 40 mg PO DAILY 4 Days #8 tab 06/19/21 Allergies Allergy/AdvReac Type Severity Reaction Status Date / Time Penicillins Allergy Severe hives, Verified 06/19/21 09:11 swelling pollen extracts [POLLEN] Allergy Severe ITCHING Verified 06/19/21 09:11 peanut [PEANUT] Allergy Intermediate RASH Verified 06/19/21 09:11 penicillins Allergy Unknown Unknown Uncoded 05/26/21 10:26 Review of Systems Review of Systems: Constitutional : No Fever, No Chills ENT/Mouth : No Hoarseness, No sore throat, positive rhinorrhea, positive nasal congestion Eyes: No Redness, No Discharge, No Vision Changes Cardiovascular : No Chest Pain, positive SOB, positive Dyspnea on Exertion, No Edema Respiratory : positive Cough, positive Sputum, positive Wheezing, Gastrointestinal : No Nausea, No Vomiting, No Diarrhea, No abdominal Pain Genitourinary : No Dysuria, No Hematuria Musculoskeletal : No joint pain, No Myalgias Skin : No rash Neuro : No Weakness, No Numbness, No Headache Psych : No anxiety, depression Heme/Lymph: No Bruising, No Bleeding Endocrine : No Polyuria, No Polydipsia Yes all other systems are reviewed and are negative [facility] Past Medical History Attestation statement: The following information was validated with the patient. Source: old records reviewed Medical History Asthma Bronchitis Chronic allergic rhinitis Morbid obesity with BMI of 40.0-44.9, adult GEORGIE (obstructive sleep apnea) Smoking history Tubular adenoma of colon Surgical History History of section Hx of colonoscopy Family History Family History Father No problems noted. 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 Blood pressure normal.? Heart rate normal.? Respiration rate normal. Temperature normal.? Oxygen saturation normal. Appearance: Alert.?Oriented to person, place and time. No acute distress.?Normal affect. Eyes: Pupils equal, round and reactive to light.? ENT: Pharynx normal.?Nares patent bilaterally, septum midline. Maxillary sinus tenderness to palpation? Neck: Normal inspection.? Neck supple.?? CVS: Heart sounds normal. Normal heart rate and rhythm.? Pulses normal.?? Respiratory: No respiratory distress.? Lung sounds with expiratory wheezing bilaterally Abdomen: Soft and non-tender. ? Skin: Skin warm and dry.? Normal skin color.? Extremities: No lower extremity edema.? No calf ttp? Neuro: Moves all extremities spontaneously. Sensation intact bilaterally. CN II-XII intact. No focal neuro deficits. Ambulates with normal steady gait. Course Course Course Narrative: Patient is a 60-year-old ill-appearing female with a past medical history of asthma, bronchitis, chronic allergic rhinitis, obstructive sleep apnea, tobacco usage. She presents to the emergency department for approximately 1 week of upper respiratory symptoms and feeling of asthma exacerbation. She denies any past history of intubations secondary to her asthma, states she has not been on steroids in ?a long time?. Patient to receive ibuprofen body aches as she took Tylenol 2 hours prior to arrival, DuoNeb updraft with total 5mg albuterol, prednisone p.o., and Mucinex. Will obtain chest x-ray to evaluate consolidation, infiltrate, pulmonary congestion. Will obtain COVID-19 and influenza testing. Disposition pending results. Reevaluation(s) Reevaluation #1: COVID-19 and influenza testing are negative. Chest x-ray is unremarkable no consolidation past week, effusion. Suspect her symptoms are most consistent with bronchitis which is causing exacerbation of her asthma, and sinusitis. Ambulation O2 trial with O2 saturation remaining >93%, and heart rate in the 90s, no dizziness or lightheadedness. Advised plan of care for discharge home, with prednisone, Mucinex, azithromycin, continued use of albuterol inhaler and nebulizer as needed for cough, shortness of breath, wheezing, will provide Guaifenesin with codeine to be used only at night. advised on plan of care for outpatient follow-up with primary care provider within 1-3 days, discussed reasons to return back to the emergency department, all questions were answered, and patient was discharged home in a stable condition. Time: 11:06 [facility] - Asthma Medical Records Attestation: I reviewed the patient's medical records. Lab Data Attestation: I reviewed the patient's lab results. Labs: Lab Results 06/19/21 06/19/21 Range/Units 09:41 09:41 COVID-19 (PAUL) Negative (Negative) COVID-19 Clin Com See Note Influenza Type A (AURELIO) Negative (Negative) Influenza Type B (AURELIO) Negative (Negative) Influenza A & B Note See Note Imaging Data Chest x-ray: Radiologist's impression: FINDINGS: There is no lobar or segmental airspace consolidation or groundglass opacity or effusion. The heart is normal in size. The hilar and mediastinal contours are normal. There is mild coarsening of the bronchiolar markings similar to prior study. No bronchiectasis. No hyperinflation. The costophrenic sulci are clear. The hilar and mediastinal contours and bony structures are unremarkable. XR/XR chest 2V IMPRESSION: Unremarkable examination. Discharge Plan Discharge Clinical Impression: Bronchitis, Sinusitis Patient Disposition: Home, Self-Care Instructions: Sinusitis (ED), Acute Bronchitis (ED) Additional Instructions: Please contact your primary care provider to schedule follow-up visit within 3 days. Return to the emergency department with any new or worsening symptoms or concerns. Take prednisone as prescribed for the next 4 days, please take this with food. Robitussin with codeine to be used only at bedtime as needed for severe cough. Prescriptions: New prednisone 20 mg tablet 40 mg PO DAILY 4 Days Qty: 8 0RF guaifenesin [Mucinex] 600 mg tablet extended release 12hr 600 mg PO Q12H PRN (Reason: congestion) Qty: 10 0RF azithromycin 250 mg tablet See Rx Instructions .ROUTE .COMPLEX Qty: 6 0RF Rx Instructions: For 250 mg dose pack: take 500 mg today (day 1), then 250 mg for 4 days (days 2-5) codeine-guaifenesin 6.3-100 mg/5 mL liquid 10 ml PO BEDTIME PRN (Reason: cough) Qty: 473 0RF No Action epinephrine [EpiPen 2-Rell] 0.3 mg/0.3 mL auto-injector 0.3 mg IM Q10M PRN (Reason: anaphylaxis) 30 Days Qty: 2 6RF Rx Instructions: for 2 doses albuterol sulfate [ProAir HFA] 90 mcg/actuation HFA aerosol inhaler 2 puff inhalation Q6H PRN (Reason: for wheezing) Qty: 8.5 9RF albuterol sulfate 2.5 mg /3 mL (0.083 %) solution for nebulization 2.5 mg inhalation Q6H PRN (Reason: for wheezing) Qty: 150 9RF pantoprazole 40 mg tablet,delayed release (DR/EC) 40 mg PO BID Qty: 60 6RF sucralfate 1 gram tablet 1 g PO BID Qty: 60 6RF ibuprofen 600 mg tablet 600 mg PO Q8H PRN (Reason: pain) Qty: 20 0RF lidocaine 5 % adhesive patch,medicated 1 patch topical DAILY Qty: 15 0RF Rx Instructions: leave on most painful area for up to 12 hrs tramadol 50 mg tablet 50 mg PO BID PRN (Reason: severe pain (scale score 7-10)) Qty: 5 0RF Afrin (oxymetazoline) 0.05 % mist 2 spray intranasal BID PRN (Reason: nasal congestion) 3 Days Qty: 15 0RF cyclobenzaprine 10 mg tablet 10 mg PO Q8H PRN (Reason: muscle spasm) Qty: 10 0RF lidocaine [Lidoderm] 5 % adhesive patch,medicated 1 patch topical DAILY Qty: 15 0RF Rx Instructions: leave on most painful area for up to 12 hrs ibuprofen 600 mg tablet 600 mg PO Q8H PRN (Reason: pain) Qty: 20 0RF metoprolol succinate 25 mg tablet extended release 24 hr 12.5 mg PO DAILY 0RF omega-3 fatty acids [Fish Oil Concentrate] 1,000 mg capsule 1,000 mg PO DAILY 0RF clonazepam 0.5 mg tablet 0.5 mg PO DAILY 0RF Xolair 150 mg/mL syringe 150 mg subcut Q2W 0RF hydroxyzine HCl 25 mg tablet 25 mg PO BEDTIME 0RF benzonatate 200 mg capsule 200 mg PO BID PRN (Reason: cough) 30 Days Qty: 45 3RF bisacodyl [Dulcolax (bisacodyl)] 5 mg tablet,delayed release (DR/EC) 10 mg PO BEDTIME 30 Days Qty: 60 6RF ferrous sulfate 325 mg (65 mg iron) tablet 325 mg PO DAILY 0RF Breo Ellipta 200-25 mcg/dose blister with device 1 inh inhalation DAILY 90 Days Qty: 3 3RF Atrovent HFA 17 mcg/actuation HFA aerosol inhaler 2 puff inhalation Q8H 30 Days Qty: 12.9 11RF loratadine [Claritin] 10 mg tablet 10 mg PO DAILY 90 Days Qty: 90 3RF ezetimibe [Zetia] 10 mg tablet 10 mg PO DAILY 0RF levocetirizine [Xyzal] 5 mg tablet 5 mg PO DAILY Qty: 30 6RF azelastine 137 mcg (0.1 %) aerosol,spray 2 spray intranasal BID 30 Days Qty: 30 6RF Rx Instructions: administer into each nostril Stand Alone Forms: Work/School Release Interventions: ED Discharge Assessment Last Done: 06/19/21 11:34 Discharge Date/Time: 06/19/21 11:35
[2021-06-19] MEDS: guaiFENesin LA 600 MG TAB.ER.12H 1200 MG PO (09:37)
[2021-06-19] MEDS: Ibuprofen 600 MG TABLET PO (09:37)
[2021-06-19] MEDS: predniSONE 20 MG TABLET 60 MG PO (09:37)
[2021-06-19 10:04] VITALS: PULSE 77; RESP 16; O2SAT 95
[2021-06-19 10:04] LABS: COVID-19 Test Negative (Negative); IDNOW Serial# 16C4AD1C
[2021-06-19] MEDS: Albuterol/Iprat 2.5/0.5MG 3 ML AMPUL.NEB INHALE (10:04)
[2021-06-19 10:07] LABS: IDNOW Serial# 55D5AD1C; Influenza A Negative (Negative); Influenza B2 Negative (Negative)
[2021-06-19] MEDS: Albuterol Sulfate (0.083%) 2.5 MG/3 ML VIAL.NEB INHALE (10:15)
[2021-06-19 10:40] VITALS: RESP 18
[2021-06-19 10:53] VITALS: BP 114/48; PULSE 89; RESP 20; TEMP 36.7; O2SAT 94
== END 2021-06-19 11:35 | disposition home or self-care (01) ==
PROVIDERS: Nurse Practitioner Family; Emergency Provider Emergency Medicine; PCP Internal Medicine
DX: J40 Bronchitis, not specified as acute or chronic (principal); J32.9 Chronic sinusitis, unspecified; M79.10 Myalgia, unspecified site; Z20.822 Contact with and (suspected) exposure to COVID-19; Z79.899 Other long term (current) drug therapy; Z87.891 Personal history of nicotine dependence
CPT/HCPCS: 71046; 87502; 87635; 94640; 99284

== ENCOUNTER 2021-06-21 10:33 | Outpatient (REF) | payer MEDICAID, SELFPAY | END 2021-06-21 10:34 | disposition home or self-care (01) | LOC: HO.MDS 10:33 | PROVIDERS: Visit Provider Hospitalist | DX: J45.50 Severe persistent asthma, uncomplicated (principal) | CPT/HCPCS: 96372; J2357 ==

== ENCOUNTER → 2021-06-27 10:18 | Outpatient (BNVA) | payer MEDICAID, SELFPAY | PROVIDERS: PCP Internal Medicine; Referring Provider Internal Medicine; Visit Provider Physician Assistant Surgical | DX: Z13.89 Encounter for screening for other disorder (principal) ==

== ENCOUNTER 2021-07-05 13:50 | Outpatient (REF) | payer MEDICAID, SELFPAY | END 2021-07-05 13:51 | disposition home or self-care (01) | LOC: HO.MDS 13:50 | PROVIDERS: Visit Provider Hospitalist | DX: J45.50 Severe persistent asthma, uncomplicated (principal) | CPT/HCPCS: 96372; J2357 ==

== ENCOUNTER 2021-07-17 06:53 | Outpatient (REF) | payer MEDICAID, SELFPAY ==
--- NOTE | ~2021-07-17 | XR_ITS ---
EXAMINATION: XR KNEES, STANDING AP XR KNEE, RIGHT XR KNEE, LEFT CLINICAL INFORMATION: Knee pain COMPARISON: Standing AP knees and bilateral knee radiographs 07/22/2018. TECHNIQUE: Standing AP view of both knees is performed. Each knee is also imaged in lateral and axial patella views. FINDINGS: Right: No fracture, dislocation, destructive process. Normal bony mineralization. Osteoarthritis involves medial knee joint compartment with increased joint narrowing since prior exam 2019 and secondary mild genu varus with marginal osteophytes medial and lateral compartment. There is a moderate suprapatellar effusion increased from prior study. Mild degenerative changes also involve the patellofemoral joint lateral side there is spurring at the quadriceps insertion patella. Hoffa's fat pad appears normal. There is no erosive change or chondrocalcinosis. Left: No fracture, dislocation, destructive process. Normal bony mineralization. Osteoarthritis medial knee joint compartment is mildly increased since 11/14/2018 and of lesser severity of that on the right. There is mild secondary genu varus. No erosive change or chondrocalcinosis. There are medial marginal osteophytes. Degenerative changes involve lateral patellofemoral joint. There is trace suprapatellar fluid with mild thickening bursa. Hoffa's fat pad appears normal. There is spurring at the quadriceps insertion patella. XR/XR knee LT 2V IMPRESSION: -Osteoarthritis medial knee joint compartments, greater on right. -Mild bilateral degenerative changes lateral patellofemoral joints. -Moderate right effusion, trace left effusion. -Spurring at quadriceps insertion bilateral patella.
--- NOTE | ~2021-07-17 | XR_ITS ---
EXAMINATION: XR KNEES, STANDING AP XR KNEE, RIGHT XR KNEE, LEFT CLINICAL INFORMATION: Knee pain COMPARISON: Standing AP knees and bilateral knee radiographs 07/22/2018. TECHNIQUE: Standing AP view of both knees is performed. Each knee is also imaged in lateral and axial patella views. FINDINGS: Right: No fracture, dislocation, destructive process. Normal bony mineralization. Osteoarthritis involves medial knee joint compartment with increased joint narrowing since prior exam 2019 and secondary mild genu varus with marginal osteophytes medial and lateral compartment. There is a moderate suprapatellar effusion increased from prior study. Mild degenerative changes also involve the patellofemoral joint lateral side there is spurring at the quadriceps insertion patella. Hoffa's fat pad appears normal. There is no erosive change or chondrocalcinosis. Left: No fracture, dislocation, destructive process. Normal bony mineralization. Osteoarthritis medial knee joint compartment is mildly increased since 11/14/2018 and of lesser severity of that on the right. There is mild secondary genu varus. No erosive change or chondrocalcinosis. There are medial marginal osteophytes. Degenerative changes involve lateral patellofemoral joint. There is trace suprapatellar fluid with mild thickening bursa. Hoffa's fat pad appears normal. There is spurring at the quadriceps insertion patella. XR/XR knee RT 2V IMPRESSION: -Osteoarthritis medial knee joint compartments, greater on right. -Mild bilateral degenerative changes lateral patellofemoral joints. -Moderate right effusion, trace left effusion. -Spurring at quadriceps insertion bilateral patella.
--- NOTE | ~2021-07-17 | XR_ITS ---
EXAMINATION: XR KNEES, STANDING AP XR KNEE, RIGHT XR KNEE, LEFT CLINICAL INFORMATION: Knee pain COMPARISON: Standing AP knees and bilateral knee radiographs 07/22/2018. TECHNIQUE: Standing AP view of both knees is performed. Each knee is also imaged in lateral and axial patella views. FINDINGS: Right: No fracture, dislocation, destructive process. Normal bony mineralization. Osteoarthritis involves medial knee joint compartment with increased joint narrowing since prior exam 2019 and secondary mild genu varus with marginal osteophytes medial and lateral compartment. There is a moderate suprapatellar effusion increased from prior study. Mild degenerative changes also involve the patellofemoral joint lateral side there is spurring at the quadriceps insertion patella. Hoffa's fat pad appears normal. There is no erosive change or chondrocalcinosis. Left: No fracture, dislocation, destructive process. Normal bony mineralization. Osteoarthritis medial knee joint compartment is mildly increased since 11/14/2018 and of lesser severity of that on the right. There is mild secondary genu varus. No erosive change or chondrocalcinosis. There are medial marginal osteophytes. Degenerative changes involve lateral patellofemoral joint. There is trace suprapatellar fluid with mild thickening bursa. Hoffa's fat pad appears normal. There is spurring at the quadriceps insertion patella. XR/XR knee standing BI IMPRESSION: -Osteoarthritis medial knee joint compartments, greater on right. -Mild bilateral degenerative changes lateral patellofemoral joints. -Moderate right effusion, trace left effusion. -Spurring at quadriceps insertion bilateral patella.
== END 2021-07-17 06:54 | disposition home or self-care (01) ==
LOC: HO.HOSX 06:53
PROVIDERS: Visit Provider Orthopaedic Surgery
DX: M17.0 Bilateral primary osteoarthritis of knee (principal)
CPT/HCPCS: 20610; 73560; 73565; 99212; J1100

== ENCOUNTER 2021-07-19 08:50 | Outpatient (REF) | payer MEDICAID, SELFPAY | END 2021-07-19 08:51 | disposition home or self-care (01) | LOC: HO.MDS 08:50 | PROVIDERS: Visit Provider Hospitalist | DX: J45.50 Severe persistent asthma, uncomplicated (principal) | CPT/HCPCS: 96372 ==

== ENCOUNTER 2021-08-02 09:26 | Outpatient (REF) | payer MEDICAID, SELFPAY | END 2021-08-02 09:27 | disposition home or self-care (01) | LOC: HO.MDS 09:26 | PROVIDERS: Visit Provider Hospitalist | DX: J45.50 Severe persistent asthma, uncomplicated (principal) | CPT/HCPCS: 96372; J2357 ==

== ENCOUNTER 2021-08-16 10:23 | Outpatient (REF) | payer MEDICAID, SELFPAY | END 2021-08-16 10:24 | disposition home or self-care (01) | LOC: HO.MDS 10:23 | PROVIDERS: Visit Provider Hospitalist | DX: J45.50 Severe persistent asthma, uncomplicated (principal) | CPT/HCPCS: 96372; J2357 ==

== ENCOUNTER 2021-08-30 11:31 | Outpatient (REF) | payer MEDICAID, SELFPAY | END 2021-08-30 11:32 | disposition home or self-care (01) | LOC: HO.MDS 11:31 | PROVIDERS: Visit Provider Hospitalist | DX: J45.50 Severe persistent asthma, uncomplicated (principal) | CPT/HCPCS: 96372; J2357 ==

== ENCOUNTER 2021-09-13 12:04 | Outpatient (REF) | payer MEDICAID, SELFPAY | END 2021-09-13 12:05 | disposition home or self-care (01) | LOC: HO.MDS 12:04 | PROVIDERS: Visit Provider Hospitalist | DX: J45.50 Severe persistent asthma, uncomplicated (principal) | CPT/HCPCS: J2357 ==

== ENCOUNTER → 2021-09-18 10:57 | Outpatient (BNVA) | payer MEDICAID, SELFPAY | PROVIDERS: PCP Internal Medicine; Referring Provider Internal Medicine; Visit Provider Physician Assistant | DX: E66.01 Morbid (severe) obesity due to excess calories (principal); Z68.41 Body mass index [BMI] 40.0-44.9, adult; G47.33 Obstructive sleep apnea (adult) (pediatric); K21.9 Gastro-esophageal reflux disease without esophagitis | CPT/HCPCS: 99202 ==

== ENCOUNTER 2021-09-27 08:58 | Outpatient (REF) | payer MEDICAID, SELFPAY | END 2021-09-27 08:59 | disposition home or self-care (01) | LOC: HO.MDS 08:58 | PROVIDERS: Visit Provider Hospitalist | DX: J45.50 Severe persistent asthma, uncomplicated (principal) | CPT/HCPCS: 96372; J2357 ==

== ENCOUNTER 2021-10-11 11:30 | Outpatient (REF) | payer MEDICAID, SELFPAY | END 2021-10-11 11:31 | disposition home or self-care (01) | LOC: HO.MDS 11:30 | PROVIDERS: Visit Provider Hospitalist | DX: J45.50 Severe persistent asthma, uncomplicated (principal) | CPT/HCPCS: 96372; J2357 ==

== ENCOUNTER → 2021-10-17 10:24 | Outpatient (BNVA) | payer MEDICAID, SELFPAY | PROVIDERS: PCP Internal Medicine; Visit Provider Nurse Practitioner | DX: K21.9 Gastro-esophageal reflux disease without esophagitis (principal); K58.1 Irritable bowel syndrome with constipation; R10.13 Epigastric pain | CPT/HCPCS: 99212 ==

== ENCOUNTER 2021-11-07 10:50 | Outpatient (REF) | payer MEDICAID, SELFPAY | END 2021-11-07 10:51 | disposition home or self-care (01) | LOC: HO.MDS 10:50 | PROVIDERS: Visit Provider Hospitalist | DX: J45.50 Severe persistent asthma, uncomplicated (principal) | CPT/HCPCS: 96372; J2357 ==

== ENCOUNTER 2021-11-21 09:01 | Outpatient (REF) | payer MEDICAID, SELFPAY | END 2021-11-21 09:02 | disposition home or self-care (01) | LOC: HO.MDS 09:01 | PROVIDERS: Visit Provider Hospitalist | DX: J45.50 Severe persistent asthma, uncomplicated (principal) | CPT/HCPCS: 96372; J2357 ==

== ENCOUNTER 2021-11-28 08:54 | Outpatient (REF) | payer MEDICAID, SELFPAY ==
--- NOTE | ~2021-11-28 | XR_ITS ---
EXAMINATION: XR THORACIC SPINE CLINICAL INFORMATION: Dorsalgia COMPARISON: Chest radiographs 06/19/2021 TECHNIQUE: The thoracic spine is imaged in upright frontal and lateral views. FINDINGS: There is normal thoracic segmentation with 12 rib-bearing thoracic vertebrae of normal height and thoracic kyphosis. There is a gentle dextrocurvature again noted mid thoracic spine. There is no thoracic vertebral compression, spondylolisthesis, destructive process, or paraspinal soft tissue swelling. Mild multilevel thoracic vertebral body spurring is present. There is mild degenerative disc changes lower thoracic spine, or approximately T9-T10. No erosive change. XR/XR thoracic spine 3V IMPRESSION: -No vertebral compression, spondylolisthesis, destructive process. -Mild dextrocurvature and scattered minor vertebral spurring and borderline lower thoracic disc narrowing.
== END 2021-11-28 08:55 | disposition home or self-care (01) ==
LOC: HO.XRAY 08:54
PROVIDERS: PCP Internal Medicine; Visit Provider Internal Medicine
DX: M54.9 Dorsalgia, unspecified (principal); J45.51 Severe persistent asthma with (acute) exacerbation; J30.9 Allergic rhinitis, unspecified; J06.9 Acute upper respiratory infection, unspecified; K21.9 Gastro-esophageal reflux disease without esophagitis; G47.33 Obstructive sleep apnea (adult) (pediatric)
CPT/HCPCS: 72072; 99212

== ENCOUNTER 2021-12-05 10:18 | Outpatient (REF) | payer MEDICAID, SELFPAY | END 2021-12-05 10:19 | disposition home or self-care (01) | LOC: HO.MDS 10:18 | PROVIDERS: Visit Provider Hospitalist | DX: J45.50 Severe persistent asthma, uncomplicated (principal) | CPT/HCPCS: 96372; J2357 ==

== ENCOUNTER 2021-12-20 09:06 | Outpatient (REF) | payer MEDICAID, SELFPAY | END 2021-12-20 09:07 | disposition home or self-care (01) | LOC: HO.MDS 09:06 | PROVIDERS: Visit Provider Hospitalist | DX: J45.50 Severe persistent asthma, uncomplicated (principal) | CPT/HCPCS: 96372; J2357 ==

== ENCOUNTER 2022-01-25 12:31 | Outpatient (REF) | payer MEDICAID, SELFPAY | END 2022-01-25 12:32 | disposition home or self-care (01) | LOC: HO.MDS 12:31 | PROVIDERS: Visit Provider Hospitalist | DX: J45.50 Severe persistent asthma, uncomplicated (principal) | CPT/HCPCS: 96372; J2357 ==

== ENCOUNTER 2022-02-08 10:11 | Outpatient (REF) | payer MEDICAID, SELFPAY | END 2022-02-08 10:12 | disposition home or self-care (01) | LOC: HO.MDS 10:11 | PROVIDERS: Visit Provider Hospitalist | DX: J45.50 Severe persistent asthma, uncomplicated (principal) | CPT/HCPCS: 96372; J2357 ==

== ENCOUNTER 2022-02-22 11:56 | Outpatient (REF) | payer MEDICAID, SELFPAY | END 2022-02-22 11:57 | disposition home or self-care (01) | LOC: HO.MDS 11:56 | PROVIDERS: Visit Provider Hospitalist | DX: J45.50 Severe persistent asthma, uncomplicated (principal) | CPT/HCPCS: J2357 ==

== ENCOUNTER 2022-03-08 08:50 | Outpatient (REF) | payer MEDICAID, SELFPAY | END 2022-03-08 08:51 | disposition home or self-care (01) | LOC: HO.MDS 08:50 | PROVIDERS: Visit Provider Hospitalist | DX: J45.50 Severe persistent asthma, uncomplicated (principal) | CPT/HCPCS: 96372; J2357 ==

== ENCOUNTER → 2022-04-06 09:08 | Outpatient (BNVA) | payer MEDICAID, SELFPAY | PROVIDERS: PCP Internal Medicine; Visit Provider Hospitalist | DX: J45.51 Severe persistent asthma with (acute) exacerbation (principal); J30.9 Allergic rhinitis, unspecified; G47.33 Obstructive sleep apnea (adult) (pediatric); Z99.89 Dependence on other enabling machines and devices; Z79.899 Other long term (current) drug therapy | CPT/HCPCS: 99212 ==

== ENCOUNTER 2022-04-10 08:41 | Outpatient (REF) | payer MEDICAID, SELFPAY | END 2022-04-10 08:42 | disposition home or self-care (01) | LOC: HO.MDS 08:41 | PROVIDERS: Visit Provider Hospitalist | DX: J45.50 Severe persistent asthma, uncomplicated (principal) | CPT/HCPCS: 96372; J2357 ==

== ENCOUNTER 2022-04-24 12:57 | Outpatient (REF) | payer MEDICAID, SELFPAY | END 2022-04-24 12:58 | disposition home or self-care (01) | LOC: HO.MDS 12:57 | PROVIDERS: Visit Provider Hospitalist | DX: J45.50 Severe persistent asthma, uncomplicated (principal) | CPT/HCPCS: 96372; J2357 ==

== ENCOUNTER 2022-05-09 07:54 | Outpatient (REF) | payer MEDICAID, SELFPAY | END 2022-05-09 07:55 | disposition home or self-care (01) | LOC: HO.MDS 07:54 | PROVIDERS: Visit Provider Hospitalist | DX: J45.50 Severe persistent asthma, uncomplicated (principal) | CPT/HCPCS: 96372; J2357 ==

== ENCOUNTER 2022-05-22 09:16 | Outpatient (REF) | payer MEDICAID, SELFPAY | END 2022-05-22 09:17 | disposition home or self-care (01) | LOC: HO.MDS 09:16 | PROVIDERS: Visit Provider Hospitalist | DX: J45.50 Severe persistent asthma, uncomplicated (principal) | CPT/HCPCS: 96372; J2357 ==

== ENCOUNTER → 2022-06-01 09:05 | Outpatient (BNVA) | payer MEDICAID, SELFPAY | PROVIDERS: PCP Internal Medicine; Visit Provider Hospitalist | DX: J45.50 Severe persistent asthma, uncomplicated (principal); J30.9 Allergic rhinitis, unspecified; G47.33 Obstructive sleep apnea (adult) (pediatric); K21.9 Gastro-esophageal reflux disease without esophagitis | CPT/HCPCS: 99212 ==

== ENCOUNTER 2022-06-05 08:51 | Outpatient (REF) | payer MEDICAID, SELFPAY | END 2022-06-05 08:52 | disposition home or self-care (01) | LOC: HO.MDS 08:51 | PROVIDERS: Visit Provider Hospitalist | DX: J45.50 Severe persistent asthma, uncomplicated (principal) | CPT/HCPCS: 96372; J2357 ==

== ENCOUNTER 2022-06-07 08:46 | Outpatient (REF) | payer MEDICAID, SELFPAY ==
--- NOTE | ~2022-06-07 | MM_ITS ---
EXAMINATION: MM SCREENING DIGITAL BREAST TOMOSYNTHESIS, BILATERAL CLINICAL INFORMATION: Screening. Asymptomatic. The lifetime risk of breast cancer based on the Tyrer-Cuzick Model is 4%. COMPARISON: Mammography: 02/20/2021, 03/19/2020, 04/15/2015 TECHNIQUE: Digital breast tomosynthesis is performed in both the craniocaudal and mediolateral oblique views along with computer-aided detection (CAD). Synthesized 2D images are generated from the tomosynthesis. FINDINGS: The breasts are almost entirely fatty (ACR BI-RADS breast composition Category a). There are no significant masses, abnormal calcifications, or other abnormalities. No developing density or architectural abnormality. Incidental intramammary nodes again seen posterior upper outer right breast and a small oval intramammary node posterior upper outer left breast. Background stromal markings are normal. The axilla and skin contours are unremarkable. MM/MM tomosynthesis screening BI IMPRESSION: No mammographic evidence of malignancy. ASSESSMENT: BI-RADS 1: Negative RECOMMENDATION: Routine annual mammography screening. This patient's information was entered into a reminder system with a target due date for their next mammogram.
== END 2022-06-07 08:47 | disposition home or self-care (01) ==
LOC: HO.MAMMO 08:46
DX: Z12.31 Encounter for screening mammogram for malignant neoplasm of breast (principal)
CPT/HCPCS: 77063; 77067

== ENCOUNTER 2022-06-19 12:37 | Outpatient (REF) | payer MEDICAID, SELFPAY | END 2022-06-19 12:38 | disposition home or self-care (01) | LOC: HO.MDS 12:37 | PROVIDERS: Visit Provider Hospitalist | DX: J45.50 Severe persistent asthma, uncomplicated (principal) | CPT/HCPCS: 96372; J2357 ==

== ENCOUNTER → 2022-06-27 09:08 | Outpatient (BNVA) | payer MEDICAID, SELFPAY | PROVIDERS: PCP Registered Nurse; Visit Provider Nurse Practitioner | DX: K58.1 Irritable bowel syndrome with constipation (principal); K21.9 Gastro-esophageal reflux disease without esophagitis; K80.20 Calculus of gallbladder without cholecystitis without obstruction; R10.13 Epigastric pain | CPT/HCPCS: 99212 ==

== ENCOUNTER → 2022-06-29 09:19 | Outpatient (BNVA) | payer MEDICAID, SELFPAY | PROVIDERS: PCP Registered Nurse; Referring Provider Registered Nurse; Visit Provider Surgery | DX: K76.0 Fatty (change of) liver, not elsewhere classified (principal); K58.1 Irritable bowel syndrome with constipation; K21.9 Gastro-esophageal reflux disease without esophagitis; J45.50 Severe persistent asthma, uncomplicated; R10.13 Epigastric pain; E66.01 Morbid (severe) obesity due to excess calories; Z87.891 Personal history of nicotine dependence; Z68.41 Body mass index [BMI] 40.0-44.9, adult | CPT/HCPCS: 99202 ==

== ENCOUNTER 2022-07-03 09:46 | Outpatient (REF) | payer MEDICAID, SELFPAY | END 2022-07-03 09:47 | disposition home or self-care (01) | LOC: HO.MDS 09:46 | PROVIDERS: Visit Provider Hospitalist | DX: J45.50 Severe persistent asthma, uncomplicated (principal) | CPT/HCPCS: 96372; J2357 ==

== ENCOUNTER → 2022-07-05 09:23 | Outpatient (BNVA) | payer MEDICAID, SELFPAY | PROVIDERS: Visit Provider Orthopaedic Surgery | DX: M25.511 Pain in right shoulder (principal); M75.51 Bursitis of right shoulder | CPT/HCPCS: 20610; 99212; J1100 ==

== ENCOUNTER 2022-07-17 09:20 | Outpatient (REF) | payer MEDICAID, SELFPAY | END 2022-07-17 09:21 | disposition home or self-care (01) | LOC: HO.MDS 09:20 | PROVIDERS: Visit Provider Hospitalist | DX: J45.50 Severe persistent asthma, uncomplicated (principal) | CPT/HCPCS: 96372; J2357 ==

== ENCOUNTER 2022-07-31 08:55 | Outpatient (REF) | payer MEDICAID, SELFPAY | END 2022-07-31 08:56 | disposition home or self-care (01) | LOC: HO.MDS 08:55 | PROVIDERS: Visit Provider Hospitalist | DX: J45.50 Severe persistent asthma, uncomplicated (principal) | CPT/HCPCS: 96372; J2357 ==

== ENCOUNTER → 2022-08-20 10:45 | Outpatient (REF) | payer MEDICAID, SELFPAY ==
--- NOTE | ~2022-08-20 | NM_ITS ---
EXAMINATION: BILIARY TRACT IMAGING STUDY WITH CCK CLINICAL INFORMATION: Calculus of gallbladder without cholecystitis, without obstruction.. COMPARISON: No previous biliary scan is available for comparison. Abdominal ultrasound dated 05/21/[address] scan of the abdomen and pelvis dated 11/25/2015 are available for comparison.. TECHNIQUE: Serial gamma scintillation camera images were obtained over the abdomen for a total observation period of 97 minutes following the intravenous administration of 5 mCi Tc-99m Mebrofenin. FINDINGS: There is good concentration of activity in the liver by 5 minutes post injection. Biliary activity is visualized by 20 minutes. The gallbladder is well visualized by 45 minutes. Small bowel is well visualized by 25 minutes. At 60 minutes post radiopharmaceutical injection, a 30-minute infusion of 1.9 micrograms Sincalide was then begun and an additional 40 minutes of images were obtained. There is good emptying of the gallbladder. By the end of the study there is good clearance of activity from the liver and visualization of diffuse small bowel activity. The calculated gallbladder ejection fraction is 59% (normal gallbladder ejection fraction is greater than 35%). NM/NM hepatobiliary w pharm IMPRESSION: Visualization of the gallbladder is evidence of a patent cystic duct and strong evidence against the diagnosis of acute cholecystitis. The common bile duct is patent. Gallbladder emptying and ejection fraction are normal. Liver function appears normal.
== END ==
LOC: HO.NUCMED 10:45
PROVIDERS: Visit Provider Nurse Practitioner
DX: K80.20 Calculus of gallbladder without cholecystitis without obstruction (principal)
CPT/HCPCS: 78227; A9537; J2805

== ENCOUNTER 2022-08-20 13:36 | Outpatient (REF) | payer MEDICAID, SELFPAY | END 2022-08-20 13:37 | disposition home or self-care (01) | LOC: HO.MDS 13:36 | PROVIDERS: Visit Provider Hospitalist | DX: J45.50 Severe persistent asthma, uncomplicated (principal) | CPT/HCPCS: 96372; J2357 ==

== ENCOUNTER 2022-08-24 14:09 | Outpatient (REF) | payer MEDICAID, SELFPAY ==
--- NOTE | ~2022-08-24 | CT_ITS ---
EXAMINATION: LUNG CANCER SCREENING CT CHEST WITHOUT CONTRAST CLINICAL INFORMATION: Current smoker with 40 pack year history COMPARISON: 11/20/2018 TECHNIQUE: Multidetector volumetric CT imaging of the chest was obtained noncontrast using low dose screening CT technique. Axial thin section 0.625 mm reformations in soft tissue and lung windows were obtained. Sagittal and coronal reformations were obtained. Axial MIP images were also created and reviewed. This CT examination was performed using dose optimization techniques as appropriate, variously including the following: *Automated exposure control *Adjustment of mA and/or kV according to patient size (this includes techniques or standardized protocols for targeted exams where dose is matched to indication/reason for exam; i.e. extremities or head) *Use of iterative reconstruction technique TOTAL EXAM DLP: 59.26 mGy-cm FINDINGS: PULMONARY NODULES (see graves images): No suspicious pulmonary nodules. There are a few stable pulmonary nodules measuring 4 mm or less in mean diameter. LUNGS / PLEURA: No significant emphysema. Diffuse mild bronchial wall thickening without bronchiectasis. No pleural effusion or pneumothorax. MEDIASTINUM / ASHLEE: Heart normal in size without pericardial effusion. Great vessels normal caliber. No lymphadenopathy. Coronary calcifications absent. Imaged thyroid gland unremarkable. CHEST WALL / AXILLA: Unremarkable. UPPER ABDOMEN: Included portions grossly unremarkable allowing for limitations in technique. OSSEOUS STRUCTURES: No acute or suspicious osseous abnormalities. CT/CT lung screening IMPRESSION: * No evidence of pulmonary malignancy. * There are no pulmonary nodules that meet criteria for short interval follow-up at this time. ASSESSMENT: Lung RADS category: 2. Benign appearance or behavior. Nodules with a very low likelihood of becoming a clinically active cancer due to size or lack of growth. Continue annual screening with low-dose CT in 12 months. Probability of malignancy less than 1%. RECOMMENDATION: Follow up low dose CT chest in 1 year.
== END 2022-08-24 14:10 | disposition home or self-care (01) ==
LOC: HO.CT 14:09
PROVIDERS: Visit Provider Physician Assistant Medical
DX: Z12.2 Encounter for screening for malignant neoplasm of respiratory organs (principal); F17.210 Nicotine dependence, cigarettes, uncomplicated
CPT/HCPCS: 71271

== ENCOUNTER 2022-09-03 13:28 | Outpatient (REF) | payer MEDICAID, SELFPAY | END 2022-09-03 13:29 | disposition home or self-care (01) | LOC: HO.MDS 13:28 | PROVIDERS: Visit Provider Hospitalist | DX: J45.50 Severe persistent asthma, uncomplicated (principal) | CPT/HCPCS: 96372; J2357 ==

== ENCOUNTER 2022-09-04 08:44 | Outpatient (REF) | payer MEDICAID, SELFPAY ==
--- NOTE | ~2022-09-04 | US_ITS ---
EXAMINATION: US ABDOMEN LIMITED CLINICAL INFORMATION: Right upper quadrant pain. COMPARISON: Ultrasound abdomen complete 05/21/2018. TECHNIQUE: Real-time imaging of the right upper quadrant abdominal viscera. FINDINGS: PANCREAS: Normal. LIVER: Liver is mildly enlarged measuring 17 cm in span. The liver contour is normal. Increased hepatic echogenicity with focal fatty sparing along the gallbladder fossa. No focal hepatic lesion. There is no intrahepatic biliary duct dilatation seen. GALLBLADDER: Negative sonographic Sanchez sign. Cholelithiasis. No evidence of gallbladder wall thickening or pericholecystic fluid. COMMON BILE DUCT: Normal in caliber measuring 0.6 cm in diameter. RIGHT KIDNEY: Normal. No hydronephrosis. No renal calculi or focal parenchymal lesions. The kidney measures 9.5 cm in maximum dimension. FREE FLUID: None. US/US abdomen limited IMPRESSION: 1. Cholelithiasis without evidence of acute cholecystitis. 2. Hepatomegaly and hepatic steatosis.
== END 2022-09-04 08:45 | disposition home or self-care (01) ==
LOC: HO.US 08:44
PROVIDERS: Visit Provider Surgery
DX: E66.01 Morbid (severe) obesity due to excess calories (principal); J45.909 Unspecified asthma, uncomplicated; K21.9 Gastro-esophageal reflux disease without esophagitis; K58.1 Irritable bowel syndrome with constipation; K76.0 Fatty (change of) liver, not elsewhere classified; K80.20 Calculus of gallbladder without cholecystitis without obstruction; R10.11 Right upper quadrant pain; R10.13 Epigastric pain; Z87.891 Personal history of nicotine dependence
CPT/HCPCS: 76705

== ENCOUNTER 2022-09-24 12:25 | Outpatient (REF) | payer MEDICAID, SELFPAY | END 2022-09-24 12:26 | disposition home or self-care (01) | LOC: HO.MDS 12:25 | PROVIDERS: Visit Provider Hospitalist | DX: J45.50 Severe persistent asthma, uncomplicated (principal) | CPT/HCPCS: 96372; J2357 ==

== ENCOUNTER 2022-09-28 12:56 | Outpatient (AMB) | payer MEDICAID, SELFPAY ==
--- NOTE | 2022-09-28 09:23 | A.OFFVIS_ITS ---
Intake Intake Visit Reasons: LDCT SD Allergies Penicillins Allergy (Severe, Verified 07/05/22 09:39) hives, swelling pollen extracts [POLLEN] Allergy (Severe, Verified 07/05/22 09:39) ITCHING peanut [PEANUT] Allergy (Intermediate, Verified 07/05/22 09:39) RASH plum Allergy (Severe, Uncoded 07/05/22 09:39) swelling penicillins Allergy (Unknown, Uncoded 07/05/22 09:39) Unknown HPI LDCT SD HPI Details Initial visit for this 62yo former smoker - She is here today only for SDM visit. NO SCAN TODAY. Patient has been smoking since age 22 for 39 years at 1ppd - with a 35PYH. She quit smoking 1 year ago in 2021. . Denies marijuana use. Denies second hand smoke exposure. Denies exposure to chemicals or substances like asbestos. . Reports family history of lung cancer. brother age 40. Denies personal history of cancers. . Denies recent travel outside the [place]. Denies recent respiratory illness or recent hospitalization for respiratory issues. Denies testing positive for COVID. Admits receiving COVID Vaccine. x 1 J&J. . Denies fever, chills, new/worsening cough, hemoptysis, hoarseness or dysphagia. Denies significant chest pain, significant dyspnea or unintentional weight loss. Patient Lung Cancer Screening Questionnaire reviewed with patient by provider. . Shared Decision Making Completed. Patient meets criteria. Discussed in detail with patient, the risk vs benefit of LDCT screening. Patient consents to proceed with scan. Discussed smoking cessation. She had her LDCT done 08/24/22 - it was Lung RADS 2 benign. Plan will be for repeat LDCT next year. [facility] Medical History (Updated 09/28/22 @ 13:15 by Jing Bee PA-C) Asthma Bronchitis Chronic allergic rhinitis Morbid obesity GEORGIE (obstructive sleep apnea) (~2007) Personal history of nicotine dependence Tubular adenoma of colon (~2014) Surgical History (Updated 08/06/22 @ 10:56 by Jing Bee PA-C) History of section History of colonoscopy History of endometrial ablation Family History (Updated 09/28/22 @ 13:17 by Jing Bee PA-C) Father No problems noted. 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 - She had LDCT done 08/24/22 was Lung RADS 2 - plan is for yearly LDCT. - Patient meets criteria for LDCT for lung cancer screening purposes and is asymptomatic. - Smoking cessation counseling offered. Patients can always call [phone]. - Will arrange for a LDCT scan of the chest for screening purposes at [facility]. - Risks, benefits, and alternatives were discussed in detail and the patient agrees to proceed. - Risks discussed include but are not limited to: radiation exposure, anxiety during testing and while awaiting results, false negatives, false positives and possibility of additional intervention such as further imaging or surgical procedures for benign disease. - Benefits are obviously detection of lung cancer at an early stage which can lead to improved outcomes. - Discussed the importance of screening program compliance with adherence to yearly LDCT scan as scheduled - or sooner interval scans for personalized screening regimen. - Discussed follow up plan. Our office will send a letter discussing results and if needed set up phone call and office visit based on CT findings. - Patient educated on results categorization and the management decisions for suspicious findings potentially found on the screening LDCT scan. Any patient with a Lung RADS score of 3 or 4 will be reviewed by a multidisciplinary team at [facility] to form a plan of action in regards to scan findings. - If further work up is warranted for a suspicious lung finding this will be followed by the Lung Cancer Screening program in conjunction with the Thoracic Surgery Department at [facility]. - A copy of the office note and LDCT will be sent to the patient's PCP - as well as documentation on any associated further plans of care. - Incidental findings on LDCT are the PCP's responsibility. These findings are indicated with an S finding on the LDCT Assessment. A note discussing the findings will be sent to the PCP who is then responsible for further management. - All questions answered.? Coding Level of Care Code Lung Cancer Screening G0296 Diagnoses Personal history of nicotine dependence Z87.891
== END 2022-09-28 13:35 | disposition home or self-care (01) ==
PROVIDERS: Visit Provider Physician Assistant Medical
DX: Z87.891 Personal history of nicotine dependence (principal)
CPT/HCPCS: G0296

== ENCOUNTER → 2022-09-28 12:56 | Outpatient (BNVA) | payer MEDICAID, SELFPAY | PROVIDERS: Visit Provider Physician Assistant Medical | CPT/HCPCS: G0296 ==

== ENCOUNTER 2022-10-08 13:59 | Outpatient (REF) | payer MEDICAID, SELFPAY | END 2022-10-08 14:00 | disposition home or self-care (01) | LOC: HO.MDS 13:59 | PROVIDERS: Visit Provider Hospitalist | DX: J45.50 Severe persistent asthma, uncomplicated (principal) | CPT/HCPCS: 96372; J2357 ==

== ENCOUNTER 2022-10-22 15:15 | Outpatient (REF) | payer MEDICAID, SELFPAY | END 2022-10-22 15:16 | disposition home or self-care (01) | LOC: HO.MDS 15:15 | PROVIDERS: Visit Provider Hospitalist | DX: J45.50 Severe persistent asthma, uncomplicated (principal) | CPT/HCPCS: 96372; J2357 ==

== ENCOUNTER 2022-11-05 13:01 | Outpatient (REF) | payer MEDICAID, SELFPAY | END 2022-11-05 13:02 | disposition home or self-care (01) | LOC: HO.MDS 13:01 | PROVIDERS: Visit Provider Hospitalist | DX: J45.50 Severe persistent asthma, uncomplicated (principal) | CPT/HCPCS: 96372; J2357 ==

== ENCOUNTER 2022-11-12 07:46 | Emergency (ER) | payer MEDICAID, SELFPAY ==
--- NOTE | ~2022-11-12 | XR_ITS ---
EXAMINATION: XR LUMBOSACRAL SPINE CLINICAL INFORMATION: Low back pain. COMPARISON: None available. TECHNIQUE: Three views of the lumbosacral spine. FINDINGS: There are 5 nonrib-bearing lumbar vertebral bodies. There is normal sagittal alignment. Vertebral body heights and intervertebral disc spaces are maintained. Facet hypertrophy at L5-S1. Sacroiliac joints are intact. XR/XR lumbar spine 2-3V IMPRESSION: No acute abnormality.
[2022-11-12 07:53] VITALS: BP 141/70; PULSE 71; RESP 22; TEMP 36.6; O2SAT 97; BMI 40.4
--- NOTE | 2022-11-12 08:45 | ED_ITS ---
HPI - Back Pain/Injury General Chief Complaint: Back Pain/Injury Stated Complaint: Lower back pain Time Seen by Provider: 11/12/22 08:41 Source: patient Mode of arrival: ambulatory Limitations: no limitations History of Present Illness HPI Narrative: 62 yo female with PMHX of asthma, GEORGIE, GERD, IBS-C, and nonalcoholic fatty liver disease presents to the ED today with bilateral lower back pain upon waking up 3 days ago. Pain has been constant since onset. Rates the pain 09/03. Denies radiation of pain. Moving and walking exacerbates the pain. Has been using lidocaine patches without relief. Has never had this pain before. Able to ambulate without difficulty. Denies trauma, injury, lifting/twisting, or fall. Denies chest pain, shortness of breath, abdominal pain, diarrhea or constipation, flank pain, dysuria, hematuria, saddle anesthesia, bowel or bladder incontinence or retention. Related Data Home Medications Medication Instructions Recorded Confirmed metoprolol succinate 25 mg 12.5 mg PO DAILY 05/18/20 09/18/21 tablet,extended release 24 hr ezetimibe 10 mg tablet (Zetia) 10 mg PO DAILY 05/26/21 09/18/21 clonazepam 0.5 mg tablet 0.5 mg PO BEDTIME 10/17/21 hydroxyzine HCl 25 mg tablet 25 - 50 mg PO QID PRN anxiety 10/17/21 lidocaine 5 % topical patch 0 patch topical 10/17/21 (Lidoderm) triamcinolone acetonide 55 mcg 2 spray intranasal DAILY 10/17/21 nasal spray aerosol nebulizers 11/28/21 CPAP (CPAP Machine/Device) 04/06/22 duloxetine 30 mg capsule,delayed 30 mg PO 06/27/22 release omega-3 300 mg-dha 120 mg-epa 180 1 cap PO QAM 06/27/22 mg-fish oil 1,000 mg capsule Previous Rx's Medication Instructions Recorded levalbuterol tartrate 45 2 puff inhalation Q6H PRN 01/30/22 mcg/actuation aerosol inhaler shortness of breath or wheezing 30 (Xopenex HFA) days #15 grams albuterol sulfate 2.5 mg/3 mL 2.5 mg (3 mL) inhalation Q6H PRN 06/01/22 (0.083 %) solution for nebulization for wheezing 30 days #180 mL epinephrine 0.3 mg/0.3 mL 0.3 mg (0.3 mL) IM Q10M PRN 06/01/22 injection, auto-injector (EpiPen anaphylaxis 30 days #2 ea 2-Rell) fluticasone fur. 200 mcg-umeclid 1 inh inhalation DAILY 30 days #60 06/01/22 62.5 mcg-vilant 25 mcg ea inhalat.powder (Trelegy Ellipta) umeclidinium 62.5 mcg/actuation 1 inh inhalation DAILY 30 days #30 06/06/22 blister powder for inhalation ea (Incruse Ellipta) pantoprazole 40 mg tablet,delayed 40 mg PO BID #60 tabs 06/07/22 release furosemide 20 mg tablet 20 mg PO BEDTIME #30 tabs 06/27/22 vflwcn-[id number]-[id number] 1 cap PO QID #120 caps 06/27/22 36,000-114,000-180,000 unit capsule,delay rel (Creon) sucralfate 100 mg/mL oral 20 ml PO DAILY #420 mL 06/27/22 suspension (Carafate) levocetirizine 5 mg tablet 5 mg PO DAILY #30 tabs 07/31/22 azelastine-fluticasone 137 mcg-50 1 spray intranasal BID #23 grams 09/28/22 mcg/spray nasal spray (Dymista) omalizumab 150 mg/mL subcutaneous 150 mg subcut Q2W 4 weeks #2 mL 10/18/22 syringe (Xolair) ipratropium bromide 17 2 puff PO Q8H #12.9 grams 11/05/22 mcg/actuation HFA aerosol inhaler (Atrovent HFA) cyclobenzaprine 5 mg tablet 5 mg PO TID PRN muscle spasm #10 11/12/22 tabs lidocaine 5 % topical patch 1 patch topical DAILY #15 ea 11/12/22 (Lidoderm) lidocaine 5 % topical patch 1 patch topical DAILY #15 ea 11/12/22 (Lidoderm) nitrofurantoin macrocrystal 100 mg 100 mg PO BID 5 days #10 caps 11/12/22 capsule Allergies Allergy/AdvReac Type Severity Reaction Status Date / Time Penicillins Allergy Severe hives, Verified 11/12/22 07:57 swelling pollen extracts [POLLEN] Allergy Severe ITCHING Verified 11/12/22 07:57 peanut [PEANUT] Allergy Intermediate RASH Verified 11/12/22 07:57 plum Allergy Severe swelling Uncoded 07/05/22 09:39 penicillins Allergy Unknown Unknown Uncoded 07/05/22 09:39 Review of Systems Review of Systems: Constitutional: No fever, No chills, No fatigue, No malaise ENT/Mouth: No ear pain, No hearing loss, No nasal congestion, No sinus pain, No rhinorrhea, No sore throat Eyes: No eye pain, No swelling, No redness, No vision changes, No foreign body, No discharge Cardio: No chest pain, No palpitations, No dyspnea on exertion, No orthopnea, No edema Respiratory: No SOB, No cough, No sputum, No wheezing, No dyspnea, No hemoptysis GI: No nausea, No vomiting, No hematemesis, No abdominal pain, No diarrhea, No constipation, No hematochezia, No melena : No irregular bleeding, No dysuria, No frequency, No urgency, No hesitancy, No hematuria, No flank pain, No urinary flow changes, No urinary incontinence or retention MSK: + back pain, No neck pain, No joint pain, No myalgias Skin: No skin lesions, No rashes Neuro: No weakness, No numbness, No paresthesias, No LOC, No dizziness, No headache All other systems reviewed and are negative. [facility] Past Medical History Attestation statement: The following information was validated with the patient. Source: old records reviewed and nursing notes reviewed Medical History Personal history of nicotine dependence Morbid obesity GEORGIE (obstructive sleep apnea) (~2007) Tubular adenoma of colon (~2014) Chronic allergic rhinitis Bronchitis Asthma Surgical History History of endometrial ablation History of colonoscopy History of section Family History Family History Father No problems noted. 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 NAD Skin: Warm and dry. No rashes or lesions. Head: Normocephalic, atraumatic. EENT: PERRLA. EOM intact. Pharynx normal. Neck: Supple without LAD. Normal ROM. Trachea midline. Cardiac: Chest wall symmetric. RRR. S1 and S1 appreciated. No MRG. No JVD. Lungs: CTA bilaterally. No rales, rhonchi, or wheezes. Normal respiratory effort without accessory muscle use. Abdomen: No visible lesions or scars. Soft, non-tender, non-distended. No rebound tenderness or guarding. Normoactive BS x4. No CVAT. Spine: No midline spinous tenderness. No deformity or step off. Bilateral lumbar paraspinal tenderness to palpation. Ext: Upper and lower extremities atraumatic. Full ROM throughout.Capillary refill <2 seconds in all extremities. Pulses 2+ equal b/l. Neuro: Alert and oriented x3. Normal speech. CN 2-12 grossly intact. Strength 5/5 intact throughout. Sensation intact to light touch. NV intact distally. Reflexes 2+ bilaterally. Ambulating with steady gait. Psych: Appropriate mood and affect. Responds appropriately to questions. Course Course Course Narrative: 956-- lumbar x-ray unremarkable. Awaiting UA. 1151-- Physician observation initiated at 11:50 a.m. pending UA. 1203-- patient's urine with > 50H white blood cells, > 20 squamous epithelial cells, negative nitrates > unclear if this is contamination or true urinary tract infection. Patient now tells me that she has been having some bladder discomfort and burning with urination. Will send patient macrobid for UTI as she is symptomatic. Additionally will send patient home with Lidoderm patches, Flexeril and Toradol since this combination helped with her back pain in the ED. Patient is hemodynamically stable. Patient agreeable with plan. All questions answered. Stable for discharge. Medications Administered Discontinued Medications Generic Name Dose Route Start Last Admin Trade Name Freq PRN Reason Stop Dose Admin Cyclobenzaprine HCl 5 mg 11/12/22 09:01 11/12/22 09:30 Cyclobenzaprine Hcl 5 Mg Tablet PO 11/12/22 09:02 5 mg ONCE ONE Administration Ketorolac Tromethamine 30 mg 11/12/22 09:01 11/12/22 09:30 Ketorolac Tromethamine 30 Mg/Ml Vial IM 11/12/22 09:02 30 mg ONCE ONE Administration Medical Decision Making Medical Decision Making [facility] Narrative: 62 yo female with PMHX of asthma, GEORGIE, GERD, IBS-C, nonalcoholic fatty liver disease, tubular adenoma of colon, presents to the ED today with bilateral lower back pain upon waking up 3 days ago. Vital signs stable. Nontoxic appearing, in NAD. Physical exam with bilateral lumbar paraspinal tenderness to palpation, no midline spinous tenderness, deformity or step off, sensation intact to light touch, NV intact distally. Clinical concern for MSK sprain/strain vs fracture vs sciatica > given patient's age, will obtain lumbar x-ray. Low suspicion for UTI, nephrolithiasis, pyelo > will obtain urinalysis. Unlikely cauda equina, epidural abscess, cord compression. Differential Diagnosis Differential Diagnoses: The differential diagnosis associated with the presentation includes Clinical concern for MSK sprain/strain vs fracture vs sciatica > given patient's age, will obtain lumbar x-ray. Low suspicion for UTI, nephrolithiasis, pyelo > will obtain urinalysis. Unlikely cauda equina, epidural abscess, cord compression. Admission/Observation Not indicated. Lab Data [facility] Lab Attestation statement: I reviewed the patient's lab results. See above course narrative. Labs: Lab Results 11/12/22 Range/Units 10:55 Urine Color Yellow Urine Appearance Cloudy Urine pH 6.5 (5.0-9.0) Ur Specific [place] 1.020 (1.005-1.025) Urine Protein Trace (Neg-Trace) mg/dL Urine Glucose (UA) Negative (Negative) mg/dL Urine Ketones Negative (Negative) mg/dL Urine Blood Trace H (Negative) Urine Nitrite Negative (Negative) Ur Leukocyte Esterase Large (3+) H (Negative) Urine RBC 0-2 (0-2) /HPF Urine WBC >50 H (0-5) /HPF Ur Squamous Epith Cells >20 (0-2) /HPF Urine Bacteria 1+ (None Seen) Hyaline Casts 0-2 (0-2) /LPF Independent Interpretation I performed an independent interpretation of an: Plain X-Ray Interpretation: Lumbar x-ray without fracture, agree with radiologist's interpretation. Radiology Impression Discussion of test interpretation with radiology: I have reviewed the radiologist's reading. Radiologist Impression: XR lumbar spine 2-3V IMPRESSION: No acute abnormality. External Record Review External record reviewed: Inpatient record Prescription Management I considered prescription management with: Pain Medication Chronic Conditions Patient?s care impacted by: Other (Osteoarthritis) Critical Care Time Critical Care Time Critical Care Time: No Discharge Plan Discharge Clinical Impression: Musculoskeletal pain, UTI (urinary tract infection) Patient Disposition: Still a Patient Instructions: Urinary Tract Infection in Women (DC), Musculoskeletal Pain (ED) Additional Instructions: Your pain is likely musculoskeletal. Avoid bending, lifting, or twisting. Use ice several times per day for 20 minutes at a time for the next 48 hours and then change to heat. Flexeril is a muscle relaxer. Take this at night as it makes you drowsy. Do not drive, drink alcohol, or operate machinery while taking it. Toradol as an anti-inflammatory / pain medication. Take with food. Lidoderm patches are numbing patches. Apply to painful areas. In addition you may take Tylenol at home. Follow up with your primary care provider as needed If your pain worsens, if you develop new numbness, tingling, weakness, loss of bowel or bladder function call 911 or return to the ER immediately for evaluation. Your urine was positive for infection. Nitrofurantoin is an antibiotic that has been sent to your pharmacy. Take this as prescribed to treat your urinary tract infection. Do not miss any doses and takes the entire course of antibiotics. Return to the emergency department if you developed fever or worsening symptoms. Prescriptions: New lidocaine [Lidoderm] 5 % adhesive patch,medicated 1 patch topical DAILY Qty: 15 0RF Rx Instructions: leave on most painful area for up to 12 hrs cyclobenzaprine 5 mg tablet 5 mg PO TID PRN (Reason: muscle spasm) Qty: 10 0RF lidocaine [Lidoderm] 5 % adhesive patch,medicated 1 patch topical DAILY Qty: 15 0RF Rx Instructions: leave on most painful area for up to 12 hrs nitrofurantoin macrocrystal 100 mg capsule 100 mg PO BID 5 Days Qty: 10 0RF Rx Instructions: must administer with a meal/food No Action levalbuterol tartrate [Xopenex HFA] 45 mcg/actuation HFA aerosol inhaler 2 puff inhalation Q6H PRN (Reason: shortness of breath or wheezing) 30 Days Qty: 15 11RF Incruse Ellipta 62.5 mcg/actuation blister with device 1 inh inhalation DAILY 30 Days Qty: 30 11RF pantoprazole 40 mg tablet,delayed release (DR/EC) 40 mg PO BID Qty: 60 6RF levocetirizine 5 mg tablet 5 mg PO DAILY Qty: 30 6RF azelastine-fluticasone [Dymista] 137-50 mcg/spray spray,non-aerosol 1 spray intranasal BID Qty: 23 11RF Rx Instructions: administer into each nostril Xolair 150 mg/mL syringe 150 mg subcut Q2W 28 Days Qty: 2 11RF Atrovent HFA 17 mcg/actuation HFA aerosol inhaler 2 puff PO Q8H Qty: 12.9 11RF metoprolol succinate 25 mg tablet extended release 24 hr 12.5 mg PO DAILY clonazepam 0.5 mg tablet 0.5 mg PO BEDTIME ezetimibe [Zetia] 10 mg tablet 10 mg PO DAILY (DME) CPAP Machine/Device Device See Rx Instructions .ROUTE Rx Instructions: As directed albuterol sulfate 2.5 mg /3 mL (0.083 %) solution for nebulization 2.5 mg inhalation Q6H PRN (Reason: for wheezing) 30 Days Qty: 180 11RF epinephrine [EpiPen 2-Rell] 0.3 mg/0.3 mL auto-injector 0.3 mg IM Q10M PRN (Reason: anaphylaxis) 30 Days Qty: 2 6RF Rx Instructions: for 2 doses Trelegy Ellipta 200-62.5-25 mcg blister with device 1 inh inhalation DAILY 30 Days Qty: 60 12RF hydroxyzine HCl 25 mg tablet 25 - 50 mg PO QID PRN (Reason: anxiety) lidocaine [Lidoderm] 5 % adhesive patch,medicated 0 patch topical triamcinolone acetonide 55 mcg aerosol,spray 2 spray intranasal DAILY (DME) nebulizers Misc See Rx Instructions .ROUTE Rx Instructions: As directed duloxetine 30 mg capsule,delayed release(DR/EC) 30 mg PO omega 2-bew-kjz-fish oil 300 mg (120 mg- 180mg)-1,000 mg capsule 1 cap PO QAM sucralfate [Carafate] 100 mg/mL suspension 20 ml PO DAILY Qty: 420 6RF furosemide 20 mg tablet 20 mg PO BEDTIME Qty: 30 6RF Creon 36,000-114,000- 180,000 unit capsule,delayed release(DR/EC) 1 cap PO QID Qty: 120 6RF Rx Instructions: administer with meals and/or snacks Referrals: [facility] [place] [facility] [Provider Group] [facility] [Primary Care Provider] - Stand Alone Forms: Work/School Release Interventions: ED Discharge Assessment Last Done: 11/12/22 12:11 Discharge Date/Time: 11/12/22 12:11
[2022-11-12] MEDS: Cyclobenzaprine HCl 5 MG TABLET PO (09:30)
[2022-11-12] MEDS: Ketorolac Tromethamine 30 MG/ML VIAL IM (09:30)
[2022-11-12 11:25] LABS: Appearance Urine Cloudy; Color Urine Yellow; Glucose Urine UA Negative (Negative); Leukocyte Esterase Urine Large (3+) (Negative); Nitrite Urine Negative (Negative); PH 6.5 (5.0-9.0); UMIC TRIGGER UACC YES; Urine Blood Trace (Negative); Urine Ketones Negative (Negative); Urine Protein Trace mg/dL (Neg-Trace)
[2022-11-12 11:30] LABS: Bacteria Urine 1+ (None Seen); Hyaline Casts Urine 0-2 /LPF (0-2); RBC Urine 0-2 /HPF (0-2); Squamous Epithelial Cell Urine >20 /HPF (0-2); UACC Culture Trigger YES; WBC Urine >50 /HPF (0-5)
== END 2022-11-12 12:11 | disposition still patient (30) ==
PROVIDERS: Physician Assistant Medical; Emergency Provider Emergency Medicine
DX: M79.10 Myalgia, unspecified site (principal); M54.50 Low back pain, unspecified; N39.0 Urinary tract infection, site not specified; Z87.891 Personal history of nicotine dependence; Z79.899 Other long term (current) drug therapy
CPT/HCPCS: 72100; 81001; 87086; 87147; 96372; 99284; J1885

== ENCOUNTER 2022-11-19 13:17 | Outpatient (REF) | payer MEDICAID, SELFPAY | END 2022-11-19 13:18 | disposition home or self-care (01) | LOC: HO.MDS 13:17 | PROVIDERS: Visit Provider Hospitalist | DX: J45.50 Severe persistent asthma, uncomplicated (principal) | CPT/HCPCS: 96372; J2357 ==

== ENCOUNTER 2022-11-26 10:36 | Outpatient (AMB) | payer MEDICAID, SELFPAY ==
[2022-11-26 10:39] VITALS: PULSE 90; O2SAT 96; BMI 40.4
--- NOTE | 2022-11-26 10:39 | A.OFFVIS_ITS ---
Intake Vital Signs 11/26/22 10:39 Height 4 ft 11 in Weight 200 lb BMI 40.4 Pulse 90 Pulse Source Pulse Oximeter Pulse Oximetry (%) 96 Oxygen Delivery Method Room Air Intake Visit Reasons: Asthma Allergies Penicillins Allergy (Severe, Verified 11/26/22 10:40) hives, swelling pollen extracts [POLLEN] Allergy (Severe, Verified 11/26/22 10:40) ITCHING peanut [PEANUT] Allergy (Intermediate, Verified 11/26/22 10:40) RASH plum Allergy (Severe, Uncoded 11/26/22 10:40) swelling HPI HPI Comments History of Present Illness Details The patient is a 62-year-old woman with known severe persistent asthma follow closely by Allergy and also pulmonary. She is currently on Xolair and is also on Breo and Atrovent HFA. She has felt that her respiratory symptoms have improved on this medication. However, lately the last week or 2 she is having more chest congestion and wheezing. She is having to use her nebulizer up to 4 times a day. She is trying to expectorate phlegm and is usually clear in color. Denies any fevers or chills or night sweats or body aches. She also complains of nasal congestion and is feels like she is having better allergies at this time. She has tried multiple nasal spray with a no significant improvement. 05/26/2021 the patient is here for a pulmonary follow-up visit. The rosa ent has been doing relatively well. She continues on the allergy therapy with Xolair. She continues with respiratory regimen. However now going to the springtime the patient is having significant issues with nasal congestion and postnasal drip. The patient may benefit from seeing an naval gunfire liaison officer specially if her symptoms do not improve. She may also benefit from allergy shots along with Xolair. With nasal congestion is been hard for her to uses CPAP. Therefore will start her on antihistamine nasal sprays and antihistamine medications. We also talked about the importance about nasal rinsing prior to putting on the CPAP. On further discussion we did talk about her smoking history. Apparently she quit smoking around 3 years ago. She smoked for more than 30 years. The patient would be a good candidate for the lung cancer screening program. Will go ahead and refer her at this time. 11/28/2021 the patient is here for a follow-up visit. The patient was doing well until the last couple weeks. Positive sick contacts. She started developing sinus congestion and also sore throat and hacky cough. Her cough has become deeper and she started developing increased chest tightness and wheezing. She has been using her rescue inhaler and her nebulizer. She tested couple times negative for COVID. had COVID may be couple weeks ago. On examination she does have some wheezing. Will go ahead and treated for a bout of tracheobronchitis in addition to an asthma exacerbation. The patient has been continued to use her CPAP although is difficult at this time because of the coughing. When she feels better she can go back to using it regularly. The CPAP therapy continues to be affecting beneficial. I did request that she can bring in the next time so we can evaluated and adjusted accordingly. 04/06/2022 the patient is here for a pulmonary follow-up visit. She has been having hard time with her breathing. Complains of chest tightness and wheezing. Moderate severity. Her inhalers have not been completely effective. She also complains of chest congestion and cough. She is bringing up yellowish phlegm. Difficult to expectorate. In addition to that she is having hard time with her CPAP. The CPAP is shutting off in the middle the night and she has a hard time because of the shortness of breath. She will have Robb go to her home to address the issues with her machine. If the machine is broken beyond repair she is going to [facility] replacement. She will call us once after she has evaluation to make sure that we address any issues with her CPAP. In the meantime the CPAP therapy has been very affecting beneficial when he was working properly. I did adjust the pressures a little bit I increased her maximum pressure to 16. She is using nasal pillows. I did talk about considering getting a chinstrap in order to minimize air leakage in case that is causing the machine to shot up by itself. 06/01/2022 the patient is here for a pulmonary follow-up visit. She was doing well until couple days ago when she started developing sinus pain pressure and postnasal drip. She feels congested. She feels like this will go down to her lungs and resulting worsening respiratory complaints. She read treated now. The patient has been using her respiratory medications although she does not have all them available. I will make sure to sent to the pharmacy. She did bring her new CPAP. The CPAP therapy continues to be affecting beneficial. She does use it more than 4 hours. Last night she only used it for 3 hours because she fell asleep washing TV. She is aware that if she does not use it enough she with on going to be able to get supplies. The patient is using nasal pillows. They appear to be affected with the go ahead and send [facility] a prescription for renewal of her supplies at this time. She continues on the Xolair injections. The been affecting beneficial. 11/26/2022 the patient is here for pulmonary follow-up visit. The patient has not been feeling well for couple days. She did tested negative for COVID yesterday. Started having flu-like symptoms. Sore throat and also cough. She is having some chest congestion. She is using her nebulizer more often. Prior to this illness she was doing just fine her current respiratory regimen. She continues on the Xolair injections. The patient also continues her CPAP therapy she does use it more than 4 hours a night. She does get supplies from [facility]. We had sent a prescription back in May but she has yet to receive them. Therefore, will send another script for her to continue getting her supplies to her [employer] company. Will go ahead and swab her for flu RSV and COVID right now. If the patient has abnormal result I will let her know. Otherwise she will start a prednisone taper and some antibiotics to treat her for a respiratory infectious process. [facility] Medical History Personal history of nicotine dependence Morbid obesity GEOGRIE (obstructive sleep apnea) (~2007) Tubular adenoma of colon (~2014) Chronic allergic rhinitis Bronchitis Asthma Surgical History History of endometrial ablation History of colonoscopy History of section Family History Father No problems noted. 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 [employer] Const Reports body aches, Reports chills, Reports daytime sleepiness, Reports difficulty sleeping, Reports fatigue, Reports headache(s) and Denies night sweats ENT Denies change in voice, Reports headache(s), Reports hoarseness, Denies lip swelling, Denies mouth pain, Reports nasal congestion, Reports nasal discharge, Reports post nasal drip, Reports sore throat and Denies tongue swelling Card Denies chest pain and Reports leg edema Resp Reports chest congestion, Reports cough, Denies stridor and Reports wheezing GI Denies abdominal pain Musc Denies no additional complaints Neuro Denies Neuro-related abnormal movements and Reports headache(s) Psych Denies no additional complaints Endo Reports fatigue Dalton/Lymph Denies easy bleeding and Denies lymphadenopathy Aller/Immun Denies lip swelling, Denies tongue swelling and Reports wheezing Physical Exam Vital Signs: Last Vital Signs Pulse 90 11/26/22 10:39 Pulse Ox 96 11/26/22 10:39 Oxygen Delivery Method Room Air 11/26/22 10:39 BMI result Body Mass Index 40.4 Const General: alert Eyes Pupils: Equal, round and reactive pupils present Neck Neck: Yes normal visual inspection, Yes full ROM and Yes no lymphadenopathy Chest Chest palpation & inspection: normal inspection of the chest Resp Auscultation: no rhonchi, wheezes and diminished lung sounds Cardio Rate: regular rate Rhythm: regular rhythm Heart sounds: S1 normal heart sound present and S2 normal heart sound present GI Palpation (GI): Soft to palpation and nontender Auscultation: normal bowel sounds Skin General skin exam: rashes and/or lesions noted Neuro Cranial nerves: Yes Equal, round and reactive pupils present Assessment & Plan Assessment & Plan (1) URI (upper respiratory infection): Code(s): J06.9 - Acute upper respiratory infection, unspecified Qualifiers: URI type: unspecified viral URI Qualified Code(s): J06.9 - Acute upper respiratory infection, unspecified (2) Asthma: Code(s): J45.909 - Unspecified asthma, uncomplicated Qualifiers: Asthma severity: severe Asthma persistence: persistent Asthma complication type: with acute exacerbation Qualified Code(s): J45.51 - Severe persistent asthma with (acute) exacerbation (3) Chronic allergic rhinitis: Code(s): J30.9 - Allergic rhinitis, unspecified (4) GEORGIE (obstructive sleep apnea): Onset Date: ~2007 Code(s): G47.33 - Obstructive sleep apnea (adult) (pediatric) (5) GERD (gastroesophageal reflux disease): Code(s): K21.9 - Gastro-esophageal reflux disease without esophagitis Qualifiers: Esophagitis presence: without esophagitis Qualified Code(s): K21.9 - Gastro-esophageal reflux disease without esophagitis Plan FLU/RSV/COVID swab done in the office start Doxycycline start Prednisone tomorrow if no better Continue Xolair twice a months Short-acting beta agonist as needed Trelegy inhaler 200 mcg Epi pen as needed Antihistamines continue CPAP , needs supplies weight management Dymista nasal spray Lung cancer screening program Follow-up in 4-6 months Orders: Orders SARS-CoV2/FLU/RSV Today J06.9 - Acute upper respiratory infection, unspecified Medications: New doxycycline hyclate 100 mg PO BID 10 days 20 caps 0RF prednisone PO daily; Take 2 tabs daily x 5 days, then 1 tablet daily x 5 days 10 days 15 tabs 0RF Refilled azelastine-fluticasone 137-50 mcg/spray (Dymista) administer into each nostril 1 spray intranasal BID 23 grams 11RF Coding Level of Care Code Est Pt Level 4 (65725) Diagnoses Viral upper respiratory tract infection J06.9 URI type: unspecified viral URI Severe persistent asthma with acute exacerbation J45.51 Asthma severity: severe Asthma persistence: persistent Asthma complication type: with acute exacerbation Chronic allergic rhinitis J30.9 GEORGIE (obstructive sleep apnea) G47.33 Gastroesophageal reflux disease without esophagitis K21.9 Esophagitis presence: without esophagitis Time Spent (min) 17
== END 2022-11-26 11:00 | disposition home or self-care (01) ==
PROVIDERS: PCP Internal Medicine; Visit Provider Hospitalist
DX: J06.9 Acute upper respiratory infection, unspecified (principal); J45.51 Severe persistent asthma with (acute) exacerbation; J30.9 Allergic rhinitis, unspecified; G47.33 Obstructive sleep apnea (adult) (pediatric); K21.9 Gastro-esophageal reflux disease without esophagitis
CPT/HCPCS: 99214

== ENCOUNTER → 2022-11-26 10:36 | Outpatient (BNVA) | payer MEDICAID, SELFPAY | PROVIDERS: Visit Provider Hospitalist | DX: F17.200 Nicotine dependence, unspecified, uncomplicated (principal); J45.40 Moderate persistent asthma, uncomplicated ==

== ENCOUNTER 2022-11-26 11:03 | Outpatient (REF) | payer MEDICAID, SELFPAY ==
[2022-11-26 12:05] LABS: Influenza A PCR NEGATIVE (Negative); Influenza B PCR NEGATIVE (Negative); Resp Syncy Virus RNA Qual PCR NEGATIVE (Negative); SARS COV2 PCR INHOUSE NEGATIVE (Negative)
== END 2022-11-26 11:04 | disposition home or self-care (01) ==
LOC: HO.LNP 11:03
PROVIDERS: Visit Provider Hospitalist
DX: Z11.52 Encounter for screening for COVID-19 (principal); J06.9 Acute upper respiratory infection, unspecified; J45.51 Severe persistent asthma with (acute) exacerbation; K21.9 Gastro-esophageal reflux disease without esophagitis
CPT/HCPCS: 0241U; 99212

== ENCOUNTER 2022-12-04 11:07 | Outpatient (REF) | payer MEDICAID, SELFPAY | END 2022-12-04 11:08 | disposition home or self-care (01) | LOC: HO.MDS 11:07 | PROVIDERS: Visit Provider Hospitalist | DX: J45.50 Severe persistent asthma, uncomplicated (principal) | CPT/HCPCS: 96372; J2357 ==

== ENCOUNTER 2022-12-17 12:16 | Outpatient (REF) | payer MEDICAID, SELFPAY | END 2022-12-17 12:17 | disposition home or self-care (01) | LOC: HO.MDS 12:16 | PROVIDERS: Visit Provider Hospitalist | DX: J45.50 Severe persistent asthma, uncomplicated (principal) | CPT/HCPCS: 96372; J2357 ==

== ENCOUNTER 2022-12-31 13:43 | Outpatient (REF) | payer MEDICAID, SELFPAY | END 2022-12-31 13:44 | disposition home or self-care (01) | LOC: HO.MDS 13:43 | PROVIDERS: Visit Provider Hospitalist | DX: J45.50 Severe persistent asthma, uncomplicated (principal) | CPT/HCPCS: 96372; J2357 ==

== ENCOUNTER 2023-01-14 12:07 | Outpatient (REF) | payer MEDICAID, SELFPAY | END 2023-01-14 12:08 | disposition home or self-care (01) | LOC: HO.MDS 12:07 | PROVIDERS: Visit Provider Hospitalist | DX: J45.50 Severe persistent asthma, uncomplicated (principal) | CPT/HCPCS: 96372; J2357 ==

== ENCOUNTER 2023-01-28 13:12 | Outpatient (REF) | payer MEDICAID, SELFPAY | END 2023-01-28 13:13 | disposition home or self-care (01) | LOC: HO.MDS 13:12 | PROVIDERS: Visit Provider Hospitalist | DX: J45.50 Severe persistent asthma, uncomplicated (principal) | CPT/HCPCS: 96372; J2357 ==

== ENCOUNTER 2023-02-11 15:10 | Outpatient (REF) | payer MEDICAID, SELFPAY | END 2023-02-11 15:11 | disposition home or self-care (01) | LOC: HO.MDS 15:10 | PROVIDERS: PCP Internal Medicine; Visit Provider Hospitalist | DX: J45.50 Severe persistent asthma, uncomplicated (principal) | CPT/HCPCS: 96372; J2357 ==

== ENCOUNTER 2023-02-26 13:13 | Outpatient (REF) | payer MEDICAID, SELFPAY | END 2023-02-26 13:14 | disposition home or self-care (01) | LOC: HO.MDS 13:13 | PROVIDERS: Visit Provider Hospitalist | DX: J45.50 Severe persistent asthma, uncomplicated (principal) | CPT/HCPCS: 96372; J2357 ==

== ENCOUNTER 2023-03-04 15:42 | Emergency (ER) | payer MEDICAID, SELFPAY ==
[2023-03-04 15:48] VITALS: BP 150/72; PULSE 95; RESP 20; TEMP 36; O2SAT 98; BMI 42.9
--- NOTE | 2023-03-04 15:48 | ED.GENADULT ---
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 Patient states that over the last 2 days she has had increased wheezing with a cough. Patient denies any dizziness, lightheadedness, abdominal pain, nausea, vomiting, fever, chills, blurry vision, double vision, loss of vision, chest pain, back pain, night sweats, pain with urination, increased urinary frequency, increased urinary urgency, blood in her urine or stool, syncope or a near syncopal episode, recent trauma or falls, bowel incontinence, bladder incontinence, bowel retention, bladder retention, or any other complaints at this time. Onset (ago): day(s) (2) Severity: mild Severity scale (1-10): 2 Relieving factors: none Exacerbating factors: none Associated symptoms: cough and shortness of breath Treatments prior to arrival: other (at home inhalers) Related Data Home Medications Medication Instructions Recorded Confirmed metoprolol succinate 25 mg 12.5 mg PO DAILY 05/18/20 09/18/21 tablet,extended release 24 hr ezetimibe 10 mg tablet (Zetia) 10 mg PO DAILY 05/26/21 09/18/21 clonazepam 0.5 mg tablet 0.5 mg PO BEDTIME 10/17/21 hydroxyzine HCl 25 mg tablet 25 - 50 mg PO QID PRN anxiety 10/17/21 lidocaine 5 % topical patch 0 patch topical 10/17/21 (Lidoderm) triamcinolone acetonide 55 mcg 2 spray intranasal DAILY 10/17/21 nasal spray aerosol nebulizers 11/28/21 CPAP (CPAP Machine/Device) 04/06/22 duloxetine 30 mg capsule,delayed 30 mg PO 06/27/22 release omega-3 300 mg-dha 120 mg-epa 180 1 cap PO QAM 06/27/22 mg-fish oil 1,000 mg capsule azelastine 137 mcg (0.1 %) nasal 1 spray intranasal BID 11/26/22 spray aerosol Previous Rx's Medication Instructions Recorded levalbuterol tartrate 45 2 puff inhalation Q6H PRN 01/30/22 mcg/actuation aerosol inhaler shortness of breath or wheezing 30 (Xopenex HFA) days #15 grams epinephrine 0.3 mg/0.3 mL 0.3 mg (0.3 mL) IM Q10M PRN 06/01/22 injection, auto-injector (EpiPen anaphylaxis 30 days #2 ea 2-Rell) fluticasone fur. 200 mcg-umeclid 1 inh inhalation DAILY 30 days #60 06/01/22 62.5 mcg-vilant 25 mcg ea inhalat.powder (Trelegy Ellipta) umeclidinium 62.5 mcg/actuation 1 inh inhalation DAILY 30 days #30 06/06/22 blister powder for inhalation ea (Incruse Ellipta) furosemide 20 mg tablet 20 mg PO BEDTIME #30 tabs 06/27/22 sovdla-rrasibka-jyhgffj 1 cap PO QID #120 caps 06/27/22 36,000-114,000-180,000 unit capsule,delay rel (Creon) omalizumab 150 mg/mL subcutaneous 150 mg subcut Q2W 4 weeks #2 mL 10/18/22 syringe (Xolair) ipratropium bromide 17 2 puff PO Q8H #12.9 grams 11/05/22 mcg/actuation HFA aerosol inhaler (Atrovent HFA) cyclobenzaprine 5 mg tablet 5 mg PO TID PRN muscle spasm #10 11/12/22 tabs lidocaine 5 % topical patch 1 patch topical DAILY #15 ea 11/12/22 (Lidoderm) lidocaine 5 % topical patch 1 patch topical DAILY #15 ea 11/12/22 (Lidoderm) nitrofurantoin macrocrystal 100 mg 100 mg PO BID 5 days #10 caps 11/12/22 capsule albuterol sulfate 2.5 mg/3 mL 2.5 mg (3 mL) inhalation Q6H PRN 11/16/22 (0.083 %) solution for nebulization for wheezing 30 days #180 mL azelastine-fluticasone 137 mcg-50 1 spray intranasal BID #23 grams 11/26/22 mcg/spray nasal spray (Dymista) doxycycline hyclate 100 mg capsule 100 mg PO BID 10 days #20 caps 11/26/22 prednisone 20 mg tablet See Rx Instructions PO DAILY 10 11/26/22 days #15 tabs pantoprazole 40 mg tablet,delayed 40 mg PO BID #60 tabs 11/29/22 release azithromycin 500 mg tablet 500 mg PO DAILY 5 days #5 tabs 01/28/23 prednisone 20 mg tablet See Rx Instructions PO DAILY 10 01/28/23 days #15 tabs levocetirizine 5 mg tablet 5 mg PO DAILY #30 tabs 02/21/23 sucralfate 1 gram tablet (Carafate) 2 g (2 x 1 gram) PO DAILY #60 tabs 02/26/23 Allergies Allergy/AdvReac Type Severity Reaction Status Date / Time Penicillins Allergy Severe hives, Verified 11/26/22 10:40 swelling pollen extracts [POLLEN] Allergy Severe ITCHING Verified 11/26/22 10:40 peanut [PEANUT] Allergy Intermediate RASH Verified 11/26/22 10:40 plum Allergy Severe swelling Uncoded 11/26/22 10:40 Review of Systems Constitutional: Constitutional: Reports no additional constitutional complaints, Denies chills, Denies fever(s) and Denies night sweats Eyes: Eyes: Reports no additional eye complaints, Denies blurry vision, Denies change in vision, Denies diplopia, Denies eye discharge, Denies loss of vision and Denies eye pain ENT: Denies dizziness Cardiovascular: Cardiovascular: Reports no additional cardiovascular complaints, Denies chest pain, Denies lightheadedness, Denies Loss of Consciousness and Reports dyspnea Respiratory: Respiratory: Reports no additional respiratory complaints, Reports cough and Reports dyspnea Gastrointestinal: Gastrointestinal: Reports no additional gastrointestinal complaints, Denies abdominal pain, Denies melena, Denies hematochezia, Denies change in bowel habits and Denies change in stool character Genitourinary: Genitourinary: Denies hematuria, Denies urinary frequency, Denies dysuria, Denies urinary incontinence, Denies urinary hesitancy and Denies urinary urgency Musculoskeletal: Musculoskeletal: Reports no additional musculoskeletal complaints, Denies numbness and Denies tingling Neurologic: Denies dizziness, Denies loss of vision, Denies numbness and Denies tingling Psychiatric: Psychiatric: Reports no additional psychiatric complaints Endocrine: Endocrine: Reports no additional endocrine complaints Hematologic/Lymphatic: Hematologic/Lymphatic: Reports no additional hematologic/lymphatic complaints Allergic/Immunologic: Allergic/Immunologic: Reports no additional allergic/immunologic complaints PMFSH Past Medical History Attestation statement: The following information was validated with the patient. Source: old records reviewed and nursing notes reviewed Onset Date is defined in the Problem List Problems that require an onset date and time if occurred within 24 hrs of arrival to the ED Aortic Dissection and Rupture; Neurologic impairment; Cardiopulmonary Arrest; Endotracheal Intubation; Insertion or Replacement of Mechanical Circulatory Assist Device Medical History Personal history of nicotine dependence Morbid obesity GEORGIE (obstructive sleep apnea) (~2007) Tubular adenoma of colon (~2014) Chronic allergic rhinitis Bronchitis Asthma Surgical History History of endometrial ablation History of colonoscopy History of section Family History Family History Father No problems noted. 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 Physical Exam ED Vital Signs: BMI result Body Mass Index 42.9 Const General: cooperative, no acute distress, alert and awake Nutritional Appearance: well nourished Orientation/consciousness: patient oriented x3 Limitations: no limitations HENMT Head: Yes normal to inspection and Yes atraumatic Ears: hearing grossly normal bilaterally and external ears normal General nose exam: Normal external nose present, no nasal discharge noted and no epistaxis Face and sinus: Yes normal facial exam, No abrasion and No laceration Mouth: Normal oral and palatal mucosa present, no drooling and no muffled voice Eyes General: appearance normal, both eyes and all related structures Periorbital: periorbital findings normal Eyelids: Yes eyelids normal Conjunctivae: conjunctivae normal Pupils: Equal, round and reactive pupils present EOM: EOMs intact bilaterally Neck Neck: Yes normal visual inspection, Yes full ROM and Yes no lymphadenopathy Chest Chest palpation & inspection: normal inspection of the chest Resp Effort & Inspection: normal respiratory effort, able to speak in complete sentences and Actively coughing Quality: dry Auscultation: wheezes throughout GI Inspection: Yes normal to inspection Neuro General: patient oriented x3 and moves all extremities Cranial nerves: Yes Equal, round and reactive pupils present Cognition (Neuro): normal cognition Motor exam (neuro): 5/5 motor strength present throughout Sensory Exam: Normal double simultaneous stimulation for sensation Coordination: [id number] test normal Extrem General: Yes normal to inspection, Yes full ROM and Yes capillary refill normal Psych Appearance: grossly normal Mental Status: mental status grossly normal Affect: normal affect Attitude: cooperative Thought process: Normal thought process present Thought content: Normal thought content present Insight: Good insight present (Psych) Course Course Course Narrative: RME performed by Buffy Agosto PA-C. Patient is a 62 year old assigned female at presenting to the emergency department with shortness of breath and increased wheezing. Detailed physical exam and review of systems are deferred to the radio electronics technician. Labs, imaging, and swabs ordered. Patient placed back in the waiting room pending room availability and results. Medications Administered Discontinued Medications Generic Name Dose Route Start Last Admin Trade Name Freq PRN Reason Stop Dose Admin Albuterol Sulfate 2 puff 03/04/23 16:25 03/04/23 16:27 Albuterol Sulfate 90 Mcg 8 Gm Inhaler INHALE 03/04/23 16:26 2 puff ONCE ONE Administration Medical Decision Making Medical Decision Making [facility] Narrative: Patient is a 62 year old assigned female at with a history of asthma presenting to the emergency department today with a cough and increased wheezing. Patient's limited physical exam performed in triage was as noted in the physical exam portion of this note. Patient's blood work showed a mildly elevated WBC count but was otherwise unremarkable. Patient's EKG was unremarkable. Patient left the department without completing treatment. Patient left the department before myself or any of the other emergency department clinicians could review or explain physical exam findings, test results, need or lack there of for further testing, treatment options or a treatment plan. Differential Diagnosis Differential Diagnoses: The differential diagnosis associated with the presentation includes Asthma exacerbation Asthma COVID-19 Influenza RSV Admission/Observation Consideration of admission/observation: Escalation of care including admission/observation considered Patient would have been admitted to the hospital had her work up had any findings where hospital admission was appropriate, her clinical presentation warranted hospital admission, and she hadn't left the department. Lab Data [facility] Lab Attestation statement: I reviewed the patient's lab results. My interpretation of these results are in the [facility] Rationale portion of this note. 03/04/23 16:04 03/04/23 16:04 Labs: Lab Results 03/04/23 Range/Units 16:04 WBC 13.7 H (4.8-10.8) X10*3/uL RBC 4.12 L (4.20-5.50) X10*6/uL Hgb 11.8 L (12.0-16.0) g/dl Hct 35.5 L (37.0-47.0) % MCV 86.2 (80.0-98.0) fL MCH 28.6 (27.0-33.0) pg MCHC 33.2 (31.0-35.0) g/dl RDW 13.9 (11.0-16.0) % Plt Count 289 (160-400) X10*3/uL MPV 9.6 (9.4-12.3) fL Immature Gran % (Auto) 0.3 (0.0-0.4) % Neut % (Auto) 74.4 H (45-73) % Lymph % (Auto) 16.8 L (20-40) % [place] % (Auto) 7.2 (2-11) % Eos % (Auto) 0.9 (0-4) % Baso % (Auto) 0.4 (0-2) % Lymph # (Auto) 2.3 (1.2-4.9) X10*3/uL [place] # (Auto) 1.0 (0.1-1.2) X10*3/uL Eos # (Auto) 0.1 (0.0-0.4) X10*3/uL Baso # (Auto) 0.1 (0.0-0.2) X10*3/uL Abs Immat Gran (auto) 0.04 H (0.00-0.03) X10*3/uL Absolute Neuts (auto) 10.2 H (2.0-8.3) x10*3/uL Absolute Nucleated RBC 0.000 (0.0-0.012) X10*3/uL Nucleated RBC % (auto) 0.0 (0.0-0.2) /100WBC Sodium 137 (135-145) mmol/L Potassium 3.8 (3.3-5.1) mmol/L Chloride 104 (96-108) mmol/L Carbon Dioxide 27 (22-29) mmol/L Anion Gap 10 L (12-20) BUN 10 (9-16) mg/dL Creatinine 0.82 (0.5-1.4) mg/dL Estim Creat Clear Calc 77.3 Estimated GFR > 60 Random Glucose 95 (60-115) mg/dL Calcium 8.7 (8.4-10.2) mg/dL Magnesium 2.1 (1.6-2.6) mg/dL Total Bilirubin 0.7 (0.0-1.0) mg/dL AST 19 (5-31) U/L ALT 19 (0-31) U/L Alkaline Phosphatase 70 (39-117) U/L Troponin I High Sens < 2.7 (<3.5-17.0) ng/L Total Protein 6.8 (6.5-8.0) g/dL Albumin 3.8 (3.5-5.0) g/dL Influenza Type A (PCR) NEGATIVE (Negative) Influenza Type B (PCR) NEGATIVE (Negative) RSV RNA Qual (PCR) NEGATIVE (Negative) SARS-CoV-2 RNA (RT-PCR) NEGATIVE (Negative) Independent Interpretation I performed an independent interpretation of an: EKG Interpretation: Vent. Rate: 091 BPM Atrial Rate: 091 BPM P-R Int: 142 ms QRS Dur: 070 ms QT Int: 358 ms P-R-T Axes: 056 021 030 degrees QTc Int: 440 ms Normal sinus rhythm Normal ECG When compared with ECG of 27-NOV-2018 21:57, Premature ventricular complexes are no longer Present Electronically Signed By:DANK BRYANT MD Dictated By: Dank Bryant MD Signed By: Electronically signed by Dank Bryant MD 03/05/23 1401 Radiology Impression Discussion of test interpretation with radiology: I have reviewed the radiologist's reading. Discharge Plan Discharge Clinical Impression: Wheezing Patient Disposition: Left W/O Completing Treatment Prescriptions: No Action levalbuterol tartrate [Xopenex HFA] 45 mcg/actuation HFA aerosol inhaler 2 puff inhalation Q6H PRN (Reason: shortness of breath or wheezing) 30 Days Qty: 15 11RF Incruse Ellipta 62.5 mcg/actuation blister with device 1 inh inhalation DAILY 30 Days Qty: 30 11RF Xolair 150 mg/mL syringe 150 mg subcut Q2W 28 Days Qty: 2 11RF Atrovent HFA 17 mcg/actuation HFA aerosol inhaler 2 puff PO Q8H Qty: 12.9 11RF albuterol sulfate 2.5 mg /3 mL (0.083 %) solution for nebulization 2.5 mg inhalation Q6H PRN (Reason: for wheezing) 30 Days Qty: 180 11RF pantoprazole 40 mg tablet,delayed release (DR/EC) 40 mg PO BID Qty: 60 6RF azithromycin 500 mg tablet 500 mg PO DAILY 5 Days Qty: 5 0RF prednisone 20 mg tablet See Rx Instructions PO DAILY 10 Days Qty: 15 0RF Rx Instructions: PO daily; Take 2 tabs daily x 5 days, then 1 tablet daily x 5 days levocetirizine 5 mg tablet 5 mg PO DAILY Qty: 30 6RF sucralfate [Carafate] 1 gram tablet 2 g PO DAILY Qty: 60 3RF lidocaine [Lidoderm] 5 % adhesive patch,medicated 1 patch topical DAILY Qty: 15 0RF Rx Instructions: leave on most painful area for up to 12 hrs cyclobenzaprine 5 mg tablet 5 mg PO TID PRN (Reason: muscle spasm) Qty: 10 0RF lidocaine [Lidoderm] 5 % adhesive patch,medicated 1 patch topical DAILY Qty: 15 0RF Rx Instructions: leave on most painful area for up to 12 hrs nitrofurantoin macrocrystal 100 mg capsule 100 mg PO BID 5 Days Qty: 10 0RF Rx Instructions: must administer with a meal/food metoprolol succinate 25 mg tablet extended release 24 hr 12.5 mg PO DAILY clonazepam 0.5 mg tablet 0.5 mg PO BEDTIME ezetimibe [Zetia] 10 mg tablet 10 mg PO DAILY (DME) CPAP Machine/Device Device See Rx Instructions .ROUTE Rx Instructions: As directed epinephrine [EpiPen 2-Rell] 0.3 mg/0.3 mL auto-injector 0.3 mg IM Q10M PRN (Reason: anaphylaxis) 30 Days Qty: 2 6RF Rx Instructions: for 2 doses Trelegy Ellipta 200-62.5-25 mcg blister with device 1 inh inhalation DAILY 30 Days Qty: 60 12RF hydroxyzine HCl 25 mg tablet 25 - 50 mg PO QID PRN (Reason: anxiety) lidocaine [Lidoderm] 5 % adhesive patch,medicated 0 patch topical triamcinolone acetonide 55 mcg aerosol,spray 2 spray intranasal DAILY (DME) nebulizers [facility] See Rx Instructions .ROUTE Rx Instructions: As directed azelastine 137 mcg (0.1 %) aerosol,spray 1 spray intranasal BID azelastine-fluticasone [Dymista] 137-50 mcg/spray spray,non-aerosol 1 spray intranasal BID Qty: 23 11RF Rx Instructions: administer into each nostril doxycycline hyclate 100 mg capsule 100 mg PO BID 10 Days Qty: 20 0RF prednisone 20 mg tablet See Rx Instructions PO DAILY 10 Days Qty: 15 0RF Rx Instructions: PO daily; Take 2 tabs daily x 5 days, then 1 tablet daily x 5 days duloxetine 30 mg capsule,delayed release(DR/EC) 30 mg PO omega [id number] oil 300 mg (120 mg- 180mg)-1,000 mg capsule 1 cap PO QAM furosemide 20 mg tablet 20 mg PO BEDTIME Qty: 30 6RF Creon 36,000-114,000- 180,000 unit capsule,delayed release(DR/EC) 1 cap PO QID Qty: 120 6RF Rx Instructions: administer with meals and/or snacks Discharge Date/Time: 03/04/23 19:35
--- NOTE | 2023-03-04 15:49 | ECG_ITS ---
Test Reason : sob Blood Pressure : / mmHG Vent. Rate : 091 BPM Atrial Rate : 091 BPM P-R Int : 142 ms QRS Dur : 070 ms QT Int : 358 ms P-R-T Axes : 056 021 030 degrees QTc Int : 440 ms Normal sinus rhythm Normal ECG When compared with ECG of 27-NOV-2018 21:57, Premature ventricular complexes are no longer Present Referred By: Buffy Agosto Electronically Signed By:RO BRITO MD
[2023-03-04 16:11] LABS: MANUAL DIFF FLAG NO
[2023-03-04 16:14] LABS: Basophils Absolute Auto 0.1 X10*3/uL (0.0-0.2); Basophils Percent Auto 0.4 % (0-2); Eosinophils Absolute Auto 0.1 X10*3/uL (0.0-0.4); Eosinophils Percent Auto 0.9 % (0-4); Hematocrit 35.5 % (37.0-47.0); Hemoglobin 11.8 g/dl (12.0-16.0); Imm Gran Abs Auto 0.04 X10*3/uL (0.00-0.03); Imm Gran Pct Auto 0.3 % (0.0-0.4); Lymphocytes Absolute Auto 2.3 X10*3/uL (1.2-4.9); Lymphocytes Percent Auto 16.8 % (20-40); Mean Corpuscular HGB Conc 33.2 g/dl (31.0-35.0); Mean Corpuscular Hemoglobin 28.6 pg (27.0-33.0); Mean Corpuscular Volume 86.2 fL (80.0-98.0); Mean Platelet Volume 9.6 fL (9.4-12.3); Monocytes Percent Auto 7.2 % (2-11); Neutrophils Absolute Auto 10.2 x10*3/uL (2.0-8.3); Neutrophils Percent Auto 74.4 % (45-73); Platelet Count 289 X10*3/uL (160-400); Red Blood Count 4.12 X10*6/uL (4.20-5.50); Red Cell Distribution Width 13.9 % (11.0-16.0); White Blood Count 13.7 X10*3/uL (4.8-10.8)
[2023-03-04] MEDS: Albuterol Sulfate 90 MCG 8 GM INHALER 2 PUFF INHALE (16:27)
[2023-03-04 16:28] LABS: Alanine Aminotransferase 19 U/L (0-31); Albumin Level 3.8 g/dL (3.5-5.0); Alkaline Phosphatase 70 U/L (39-117); Anion Gap 10 (12-20); Aspartate Amino Transferase 19 U/L (5-31); Bilirubin Total 0.7 mg/dL (0.0-1.0); Blood Urea Nitrogen 10 mg/dL (9-16); Calcium 8.7 mg/dL (8.4-10.2); Carbon Dioxide 27 mmol/L (22-29); Chloride 104 mmol/L (96-108); Creatinine Clr Calc Pharmacy 77.3; Estimated Glomerular Filt Rate > 60; Glucose Random 95 mg/dL (60-115); Magnesium 2.1 mg/dL (1.6-2.6); Potassium 3.8 mmol/L (3.3-5.1); Sodium 137 mmol/L (135-145); Total Protein 6.8 g/dL (6.5-8.0)
[2023-03-04 16:36] LABS: Troponin-I High Sensitivity < 2.7 ng/L (<3.5-17.0)
[2023-03-04 16:52] LABS: Influenza A PCR NEGATIVE (Negative); Influenza B PCR NEGATIVE (Negative); Resp Syncy Virus RNA Qual PCR NEGATIVE (Negative); SARS COV2 PCR INHOUSE NEGATIVE (Negative)
== END 2023-03-04 19:35 | disposition left against medical advice (07) ==
LOC: HO.ED 19:22
PROVIDERS: Physician Assistant Medical; Emergency Provider Emergency Medicine
DX: J45.909 Unspecified asthma, uncomplicated (principal); R06.02 Shortness of breath; R05.9 Cough, unspecified; R94.31 Abnormal electrocardiogram [ECG] [EKG]; Z20.822 Contact with and (suspected) exposure to COVID-19; Z20.828 Contact with and (suspected) exposure to other viral communicable diseases; Z87.891 Personal history of nicotine dependence; Z79.899 Other long term (current) drug therapy
CPT/HCPCS: 0241U; 80053; 83735; 84484; 85025; 93005; 99283

== ENCOUNTER → 2023-03-04 15:49 | Outpatient (BNV) | payer MEDICAID, SELFPAY | PROVIDERS: Emergency Provider Emergency Medicine; Visit Provider Internal Medicine Cardiovascular Disease | DX: R06.02 Shortness of breath (principal); I49.3 Ventricular premature depolarization | CPT/HCPCS: 93010 ==

== ENCOUNTER 2023-03-11 | Outpatient (REF) | payer MEDICAID, SELFPAY | END 2023-03-11 00:01 | disposition home or self-care (01) | LOC: HO.MDS | PROVIDERS: Visit Provider Hospitalist | DX: J45.50 Severe persistent asthma, uncomplicated (principal) | CPT/HCPCS: 96372; J2357 ==

== ENCOUNTER 2023-03-25 13:10 | Outpatient (REF) | payer MEDICAID, SELFPAY | END 2023-03-25 13:11 | disposition home or self-care (01) | LOC: HO.MDS 13:10 | PROVIDERS: Visit Provider Hospitalist | DX: J45.50 Severe persistent asthma, uncomplicated (principal) | CPT/HCPCS: 96372; J2357 ==

== ENCOUNTER 2023-04-05 10:21 | Outpatient (AMB) | payer MEDICAID, SELFPAY ==
[2023-04-05 10:30] VITALS: PULSE 79; O2SAT 96; BMI 40.4
--- NOTE | 2023-04-05 10:30 | A.OFFVIS_ITS ---
Intake Vital Signs 04/05/23 10:30 Height 4 ft 11 in Weight 200 lb BMI 40.4 Pulse 79 Pulse Source Pulse Oximeter Pulse Oximetry (%) 96 Oxygen Delivery Method Room Air Intake Visit Reasons: Asthma/ sick visit Range Feeder Required: No Allergies Penicillins Allergy (Severe, Verified 04/05/23 10:32) hives, swelling pollen extracts [POLLEN] Allergy (Severe, Verified 04/05/23 10:32) ITCHING peanut [PEANUT] Allergy (Intermediate, Verified 04/05/23 10:32) RASH plum Allergy (Severe, Uncoded 04/05/23 10:32) swelling HPI HPI Comments History of Present Illness Details The patient is a 62-year-old woman with known severe persistent asthma follow closely by Allergy and also pulmonary. She is currently on Xolair and is also on Breo and Atrovent HFA. She has felt that her respiratory symptoms have improved on this medication. However, lately the last week or 2 she is having more chest congestion and wheezing. She is having to use her nebulizer up to 4 times a day. She is trying to expectorate phlegm and is usually clear in color. Denies any fevers or chills or night sweats or body aches. She also complains of nasal congestion and is feels like she is having better allergies at this time. She has tried multiple nasal spray with a no significant improvement. 04/06/2022 the patient is here for a pulm onary follow-up visit. She has been having hard time with her breathing. Complains of chest tightness and wheezing. Moderate severity. Her inhalers have not been completely effective. She also complains of chest congestion and cough. She is bringing up yellowish phlegm. Difficult to expectorate. In addition to that she is having hard time with her CPAP. The CPAP is shutting off in the middle the night and she has a hard time because of the shortness of breath. She will have Robb go to her home to address the issues with her machine. If the machine is broken beyond repair she is going to [place] replacement. She will call us once after she has evaluation to make sure that we address any issues with her CPAP. In the meantime the CPAP therapy has been very affecting beneficial when he was working properly. I did adjust the pressures a little bit I increased her maximum pressure to 16. She is using nasal pillows. I did talk about considering getting a chinstrap in order to minimize air leakage in case that is causing the machine to shot up by itself. 06/01/2022 the patient is here for a pulmo iain follow-up visit. She was doing well until couple days ago when she started developing sinus pain pressure and postnasal drip. She feels congested. She feels like this will go down to her lungs and resulting worsening respiratory complaints. She read treated now. The patient has been using her respiratory medications although she does not have all them available. I will make sure to sent to the pharmacy. She did bring her new CPAP. The CPAP therapy continues to be affecting beneficial. She does use it more than 4 hours. Last night she only used it for 3 hours because she fell asleep washing TV. She is aware that if she does not use it enough she with on going to be able to get supplies. The patient is using nasal pillows. They appear to be affected with the go ahead and send [facility] a prescription for renewal of her supplies at this time. She continues on the Xolair injections. The been affecting beneficial. 11/26/2022 the patient is here for pulcooper christian follow-up visit. The patient has not been feeling well for couple days. She did tested negative for COVID yesterday. Started having flu-like symptoms. Sore throat and also cough. She is having some chest congestion. She is using her nebulizer more often. Prior to this illness she was doing just fine her current respiratory regimen. She continues on the Xolair injections. The patient also continues her CPAP therapy she does use it more than 4 hours a night. She does get supplies from [facility]. We had sent a prescription back in May but she has yet to receive them. Therefore, will send another script for her to continue getting her supplies to her [employer] company. Will go ahead and swab her for flu RSV and COVID right now. If the patient has abnormal result I will let her know. Otherwise she will start a prednisone taper and some antibiotics to treat her for a respiratory infectious process. 04/05/2023 the patient is here for sick vi sit. She has been sick now for about 4 days. She started developing fevers and chills. Also nasal congestion and sore throat. The patient was noticing increasing chest tightness shortness of breath and wheezing. Therefore she called for an appointment. The patient did have a nasal swab in the office. Was negative for RSV, flu and COVID-19. The patient does have significant wheezing on examination. She is also coughing with some chest congestion. Mucus is yellowish in color. The patient has been using her respiratory therapy. She needs an additional nebulized therapy. She continues use Mucinex as needed for the chest congestion. This time will going to go ahead and send the additional medications to the pharmacy to treat an asthma exacerbation due to a viral syndrome. She is also struggling getting supplies from her [employer] We did call them it seems that everything is up today. However she needs to make an appointment to be able to cone picker her equipment. She is using the P 10 mask the seems to be the most comfortable for her. ON LICENSE OF [facility] Medical History Personal history of nicotine dependence Morbid obesity GEORGIE (obstructive sleep apnea) (~2007) Tubular adenoma of colon (~2014) Chronic allergic rhinitis Bronchitis Asthma Surgical History History of endometrial ablation History of colonoscopy History of section Family History Father No problems noted. 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 Review of Systems Const Reports body aches, Reports chills, Reports difficulty sleeping, Reports fatigue and Denies night sweats ENT Denies change in voice, Reports hoarseness, Denies lip swelling, Reports nasal congestion, Reports nasal discharge and Reports post nasal drip Card Denies chest pain and Reports leg edema Resp Reports chest congestion, Reports cough, Denies stridor and Reports wheezing GI Denies abdominal pain Musc Denies no additional complaints Neuro Denies Neuro-related abnormal movements Psych Denies no additional complaints Endo Reports fatigue Dalton/Lymph Denies easy bleeding and Denies lymphadenopathy Aller/Immun Denies lip swelling and Reports wheezing Physical Exam Vital Signs: Last Vital Signs Pulse 79 04/05/23 10:30 Pulse Ox 96 04/05/23 10:30 Oxygen Delivery Method Room Air 04/05/23 10:30 BMI result Body Mass Index 40.4 Const General: alert Eyes Pupils: Equal, round and reactive pupils present Neck Neck: Yes normal visual inspection, Yes full ROM and Yes no lymphadenopathy Chest Chest palpation & inspection: normal inspection of the chest Resp Auscultation: no rhonchi, wheezes and diminished lung sounds Cardio Rate: regular rate Rhythm: regular rhythm Heart sounds: S1 normal heart sound present and S2 normal heart sound present GI Palpation (GI): Soft to palpation and nontender Auscultation: normal bowel sounds Skin General skin exam: rashes and/or lesions noted Neuro Cranial nerves: Yes Equal, round and reactive pupils present Assessment & Plan Assessment & Plan (1) URI (upper respiratory infection): Code(s): J06.9 - Acute upper respiratory infection, unspecified Qualifiers: URI type: unspecified viral URI Qualified Code(s): J06.9 - Acute upper respiratory infection, unspecified (2) Asthma: Code(s): J45.909 - Unspecified asthma, uncomplicated Qualifiers: Asthma complication type: with acute exacerbation Asthma persistence: persistent Asthma severity: severe Qualified Code(s): J45.51 - Severe persistent asthma with (acute) exacerbation (3) Chronic allergic rhinitis: Code(s): J30.9 - Allergic rhinitis, unspecified (4) GEORGIE (obstructive sleep apnea): Onset Date: ~2007 Code(s): G47.33 - Obstructive sleep apnea (adult) (pediatric) (5) GERD (gastroesophageal reflux disease): Code(s): K21.9 - Gastro-esophageal reflux disease without esophagitis Qualifiers: Esophagitis presence: without esophagitis Qualified Code(s): K21.9 - Gastro-esophageal reflux disease without esophagitis Plan FLU/RSV/COVID swab done in the office start Zpack start Prednisone taper Continue Xolair twice a months Short-acting beta agonist as needed Trelegy inhaler 200 mcg Epi pen as needed Antihistamines continue CPAP , needs supplies weight management Dymista nasal spray Lung cancer screening program Follow-up in 4-6 months Orders: Orders SARS-CoV2/FLU/RSV 04/05/23 J06.9 - Acute upper respiratory infection, unspecified Medications: New prednisone PO daily; Take 6 tabs daily x 3 days, then 5 tabs x 3 days, then 4 tabs x 3 days, then 3 tabs x 3 days, then 2 tabs daily x 3 days, then 1 tab x 3 days to complete. 18 days 63 tabs 0RF Refilled azithromycin 500 mg PO DAILY 5 days 5 tabs 0RF levocetirizine 5 mg PO DAILY 30 tabs 11RF albuterol sulfate 2.5 mg (3 mL) inhalation Q6H 30 days PRN 180 mL 11RF for wheezing Coding Level of Care Code Est Pt Level 4 (27786) Diagnoses Viral upper respiratory tract infection J06.9 URI type: unspecified viral URI Severe persistent asthma with acute exacerbation J45.51 Asthma complication type: with acute exacerbation Asthma persistence: persistent Asthma severity: severe Chronic allergic rhinitis J30.9 GEORGIE (obstructive sleep apnea) G47.33 Gastroesophageal reflux disease without esophagitis K21.9 Esophagitis presence: without esophagitis Time Spent (min) 17
== END 2023-04-05 10:46 | disposition home or self-care (01) ==
PROVIDERS: PCP Registered Nurse; Visit Provider Hospitalist
DX: J06.9 Acute upper respiratory infection, unspecified (principal); J45.51 Severe persistent asthma with (acute) exacerbation; J30.9 Allergic rhinitis, unspecified; G47.33 Obstructive sleep apnea (adult) (pediatric); K21.9 Gastro-esophageal reflux disease without esophagitis
CPT/HCPCS: 99214

== ENCOUNTER 2023-04-05 10:21 | Outpatient (REF) | payer MEDICAID, SELFPAY ==
[2023-04-05 11:57] LABS: Influenza A PCR NEGATIVE (Negative); Influenza B PCR NEGATIVE (Negative); Resp Syncy Virus RNA Qual PCR NEGATIVE (Negative); SARS COV2 PCR INHOUSE NEGATIVE (Negative)
== END 2023-04-05 10:22 | disposition home or self-care (01) ==
LOC: HO.LNP 10:21
PROVIDERS: Visit Provider Hospitalist
DX: J06.9 Acute upper respiratory infection, unspecified (principal); J45.51 Severe persistent asthma with (acute) exacerbation; R09.81 Nasal congestion; J02.9 Acute pharyngitis, unspecified; R68.83 Chills (without fever); J30.9 Allergic rhinitis, unspecified; G47.33 Obstructive sleep apnea (adult) (pediatric); K21.9 Gastro-esophageal reflux disease without esophagitis
CPT/HCPCS: 0241U; 99212

== ENCOUNTER 2023-04-19 13:15 | Outpatient (REF) | payer MEDICAID, SELFPAY | END 2023-04-19 13:16 | disposition home or self-care (01) | LOC: HO.MDS 13:15 | PROVIDERS: Visit Provider Hospitalist | DX: J45.50 Severe persistent asthma, uncomplicated (principal) | CPT/HCPCS: 96372; J2357 ==

== ENCOUNTER 2023-05-03 12:29 | Outpatient (REF) | payer MEDICAID, SELFPAY ==
[2023-05-03 12:30] VITALS: BP 120/70; PULSE 84; RESP 18; TEMP 36.9; O2SAT 97
[2023-05-03] MEDS: Omalizumab 150 MG/ML SYRINGE 300 MG SUBCUT (12:53)
== END 2023-05-03 12:30 | disposition home or self-care (01) ==
LOC: HO.MDS 12:29
PROVIDERS: Visit Provider Hospitalist
DX: J45.50 Severe persistent asthma, uncomplicated (principal)
CPT/HCPCS: 96372; J2357

== ENCOUNTER 2023-05-17 08:47 | Outpatient (REF) | payer MEDICAID, SELFPAY ==
[2023-05-17 08:54] VITALS: BP 144/83; PULSE 75; RESP 18; TEMP 36.6; O2SAT 97
[2023-05-17] MEDS: Omalizumab 150 MG/ML SYRINGE 300 MG SUBCUT (08:56)
== END 2023-05-17 08:48 | disposition home or self-care (01) ==
LOC: HO.MDS 08:47
PROVIDERS: Visit Provider Hospitalist
DX: J45.50 Severe persistent asthma, uncomplicated (principal)
CPT/HCPCS: 96372; J2357

== ENCOUNTER 2023-05-22 12:05 | Outpatient (AMB) | payer MEDICAID, SELFPAY ==
--- NOTE | 2023-05-22 12:12 | MHC.OFFVIS ---
Intake Vital Signs 05/22/23 12:14 Height 4 ft 11 in Weight 221 lb 12.56 oz BMI 44.8 BP 134/80 Blood Pressure Location Lt brachial Position Sitting Intake Visit Reasons: r/s from 04/17/23 Intake Note: Patient in office today for follow up of hepatobiliary scan and GERD. CC: Patient c/o acid reflux and epigastric pain. Denies other GI symptoms. Credit Collection Specialist Required: Yes Accompanied by: Self / Same As Patient Allergies Penicillins Allergy (Severe, Verified 05/22/23 12:22) hives, swelling pollen extracts [POLLEN] Allergy (Severe, Verified 05/22/23 12:22) ITCHING peanut [PEANUT] Allergy (Intermediate, Verified 05/22/23 12:22) RASH plum Allergy (Severe, Uncoded 04/05/23 10:32) swelling HPI r/s from 04/17/23 HPI Details Assessment & Plan (1) Epigastric pain: ?Code(s): R10.13 - Epigastric pain ?Plan: [place]ian #Kevin Meseret Pete She is doing generally okay, but says I have gallstones and have been having stomach aches. She says she does not eat high fat foods or fried foods. She can not have surgery at this time as her airplane woodworker did not clear her. I suggest a trial of creon and explain? why. She is somewhat unenthusiastic r/t her overall pill burden. 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 She says she had a CT about a year ago that provided this dx. She had urgent RUQ pain and this was the ER dx via CT. However, the pain usually does not move, and is accompanied by nausea and diarrhea. It comes even if she does not eat....so this is very atypical for gallstones. She is having trouble taking her carafate r/t swallowing. Will change to liquid. Ordering HIDA scan and starting Creon.? May need to consider upper endoscopy since the pain is more in the gastric/epigastric area.? I explained all this to her and let her know that I am simply trying to make sure that the underlying etiology to her pain is actually determined especially since she says that her primary care provider keeps telling her ?you gotta get that gallbladder out. ?? At least that the patient's understanding.? I just want to make sure that we're actually going to solve her pain problem and since she has cardiac complications help her avoid a surgery if it is not unnecessary. . ROV 4 weeks and after US, get [facility] CT results. (2) Irritable bowel syndrome with constipation: ?Code(s): K58.1 - Irritable bowel syndrome with constipation (3) GERD (gastroesophageal reflux disease): ?Code(s): K21.9 - Gastro-esophageal reflux disease without esophagitis ?Qualifiers: ?Esophagitis presence:?without esophagitis? Qualified Code(s):?K21.9 - Gastro-esophageal reflux disease without esophagitis (4) Symptomatic cholelithiasis: ?Code(s): K80.20 - Calculus of gallbladder without cholecystitis without obstruction ? ? ? Orders: Orders NM hepatobiliary w pharm Today K80.20 - Calculus of gallbladder wit hout cholecystitis without obstructi on ? Medications: New sucralfate (Carafa te) 20 mL? PO DAILY 42 0 mL 6RF R10.13 - Epigastri c pain ? vhhrgf-zfhfabmz-rb ylase 36,000-114,0 00- 180,000 unit ( Creon) ?? administ er with meals and/ or snacks 1 cap? PO QID 120 caps 6RF K58.1 - Irritable bowel syndrome wit h constipation, K8 0.20 - Calculus of gallbladder witho ut cholecystitis w ithout obstruction ? Changed From furosemide 20 mg? PO QAM ? ? To furosemide 20 mg? PO BEDTIME 30 tabs 6RF ? ? Discontinued sucralfate ?? Disc ontinued Reason:? Doctor's Order 1 g? PO BID 60 tab s 6RF K21.9 - Gastro-eso phageal reflux dis ease without esoph agitis, R10.13 - E pigastric pain ? HIDA SCAN 08/21/22 MPRESSION: Visualization of the gallbladder is evidence of a patent cystic duct and strong evidence against the diagnosis of acute cholecystitis. The common bile duct is patent. Gallbladder emptying and ejection fraction are normal. Liver function appears normal. CORRESPONDENCE Medication Orders sucralfate 2 grams (2 x 1 gra m) PO DAILY 60 tab s 3RF New sucralfate 20 mL PO DAILY 420 mL 6RF Discontinued On 02/19/23 @ 09:15 Angela Thomas Wrote To CeeAnnika Called PT and advised per message below. Patient stated that she use to take the tablets and she would like to get them back as she does not want the Sucralfate liquid anymore. She was advised that I will relay message to provider but she will be back next week. Pt verbalized understanding. On 02/15/23 @ 14:14 Annika Mike Wrote To Angela Thomas CeeAnnika removed from item. On 02/15/23 @ 14:13 Annika Mike Wrote To CeeAnnika (2) Please tell her that the tablets also taste bad because the dissolved quickly in her mouth and often stick in the throat. Please tell her she can try mixing the sucralfate with something sweet like apple juice etc. and taking it that way to reduce the unpleasant taste. On 02/14/23 @ 10:53 Cristina Maya Wrote To CeeMay Pt stopped in office asking if you can please change Sucralfate 100 mg/ml in tablets, she stating the liquid taste very bad and having a hard time swallowing. Any questions please call pt @ [phone] TODAY'S VISIT [place]ian #Estelle Live She never received the creon, it seems that it was not sent to the correct pharmacy so I re direct it. She is having a lot of HB and acid brash that comes on in the middle of the night, and on reviewing her medications she says her carafate tablets are packaged as twice a day and I want her to take it 2 tabs together to avoid blocking any other medications - I suspect on of her pantoprazole doses is being mal absorbed. I write to the pharmacy to correct this and sugges she take these at noon. No other medicine changes, no wt gain, no CIC or diarrhea. Medication changes are an increase of her metoprolol to 25mg bid. She has had more pain and trouble over the past 2 days, I am unusure if this is a GI BUG. Again she is to avoid fats as she has gallstones although the HIDA scan does not seem to indicate this is a great problem at this time. Rov 8 weeks to leonard reese. Also to evaluate changing the dosing of the Carafate to make sure it has not conflicting with the pantoprazole. [facility] Medical History Personal history of nicotine dependence Morbid obesity GEORGIE (obstructive sleep apnea) (~2007) Tubular adenoma of colon (~2014) Chronic allergic rhinitis Bronchitis Asthma Surgical History History of endometrial ablation History of colonoscopy History of section Family History Father No problems noted. 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 Review of Systems Const Denies fatigue, Denies fever(s), Denies night sweats, Denies poor appetite and Denies weight loss Eyes Details: glasses Reports requires corrective lenses ENT Reports Normal hearing present, Denies dental pain, Denies dysphagia, Denies hearing loss, Denies mouth pain, Denies odynophagia, Denies throat swelling, Denies tongue swelling and Reports other (Dentition adequate) Card Reports no additional complaints Resp Reports no additional complaints GI Details: Reports abdominal pain, Denies melena, Reports bloating, Denies hematochezia, Denies constipation, Denies GI cramping, Denies dysphagia, Reports excessive flatus, Denies early satiety, Reports heartburn, Denies diarrhea, Reports nausea, Denies odynophagia, Denies vomiting and Denies hematemesis Skin/Breast Denies pruritus, Denies lesions, Denies rash and Denies jaundice Neuro Reports Normal hearing present and Denies Abnormal speech present Endo Denies fatigue Aller/Immun Denies throat swelling and Denies tongue swelling Physical Exam Vital Signs: Last Vital Signs BP 134/80 05/22/23 12:14 BMI result Body Mass Index 44.8 Const General: cooperative, no acute distress, well developed and well groomed Nutritional Appearance: well nourished and obese Orientation/consciousness: oriented to person, oriented to place and oriented to time Limitations: language barrier HEENT Head: Yes normocephalic and Yes atraumatic Eyes General: appearance normal, both eyes and all related structures Pupils: Equal, round and reactive pupils present Neck Neck: Yes normal visual inspection and Yes no lymphadenopathy Thyroid: Thyroid normal Resp Effort & Inspection: normal respiratory effort and able to speak in complete sentences Auscultation: clear to auscultation bilaterally Cardio Rate: regular rate Rhythm: regular rhythm Heart sounds: Normal, physiologic split S2 sound present Peripheral pulses: radial pulses present and posterior tibial pulses present GI Inspection: No distended, Yes Abdominal panniculus present and Yes obesity Palpation (GI): Soft to palpation, nontender, no guarding, not rigid and No hepatosplenomegaly present Percussion: Yes normal to percussion Auscultation: normal bowel sounds Rectal Exam - Female: deferred Skin General skin exam: no rashes or lesions noted, turgor normal, skin not dry, no jaundice, No spider nevi and no striae Rashes: no rashes Nails: normal Neuro General: oriented to person, oriented to place and oriented to time Cranial nerves: Yes Equal, round and reactive pupils present and Yes Normal hearing present Speech: No Abnormal speech present Extrem General: Yes normal to inspection, No clubbing, No cyanosis and No edema Psych Appearance: grossly normal and well kempt Mental Status: mental status grossly normal Speech and movement: Normal speech and movement present Affect: normal affect Attitude: cooperative Thought process: Normal thought process present and not confabulating Thought content: Normal thought content present Insight: Limited insight present (Psych) Judgement: Limited judgement present (Psych) Results Reviewed Results Reviewed: HIDA SCAN 08/21/22 MPRESSION: Visualization of the gallbladder is evidence of a patent cystic duct and strong evidence against the diagnosis of acute cholecystitis. The common bile duct is patent. Gallbladder emptying and ejection fraction are normal. Liver function appears normal Assessment & Plan Assessment & Plan (1) GERD (gastroesophageal reflux disease): Code(s): K21.9 - Gastro-esophageal reflux disease without esophagitis Qualifiers: Esophagitis presence: without esophagitis Qualified Code(s): K21.9 - Gastro-esophageal reflux disease without esophagitis (2) Cholelithiasis: Code(s): K80.20 - Calculus of gallbladder without cholecystitis without obstruction (3) Irritable bowel syndrome with constipation: Code(s): K58.1 - Irritable bowel syndrome with constipation Plan [place]ian #Estelle Live She never received the creon, it seems that it was not sent to the correct pharmacy so I re direct it. She is having a lot of HB and acid brash that comes on in the middle of the night, and on reviewing her medications she says her carafate tablets are packaged as twice a day and I want her to take it 2 tabs together to avoid blocking any other medications - I suspect on of her pantoprazole doses is being mal absorbed. I write to the pharmacy to correct this and sugges she take these at noon. No other medicine changes, no wt gain, no CIC or diarrhea. Medication changes are an increase of her metoprolol to 25mg bid. She has had more pain and trouble over the past 2 days, I am unusure if this is a GI BUG. Again she is to avoid fats as she has gallstones although the HIDA scan does not seem to indicate this is a great problem at this time. Rov 8 weeks to eval creon. Also to evaluate changing the dosing of the Carafate to make sure it has not conflicting with the pantoprazole. Medications: Changed From sucralfate (Carafate) 2 grams (2 x 1 gram) PO DAILY 60 tabs 3RF K21.9 - Gastro-esophageal reflux disease without esophagitis To sucralfate (Carafate) PLEASE BE SURE TO PACKAGE IT 2 TABS AT THE SAME TIME, NOT TWICE A DAY TO AVOID THIS MEDICATION INTERFERING WITH THE ABSORPTION OF OTHER MEDICINES 2 grams (2 x 1 gram) PO DAILY 60 tabs 3RF K21.9 - Gastro-esophageal reflux disease without esophagitis From [id number] 36,000-114,000- 180,000 unit (Creon) administer with meals and/or snacks 1 cap PO QID 120 caps 6RF K58.1 - Irritable bowel syndrome with constipation, K80.20 - Calculus of gallbladder without cholecystitis without obstruction To ruxdfp-xeudywlr-olidsli 36,000-114,000- 180,000 unit (Creon) administer with meals and/or snacks 2 caps PO BID 120 caps 6RF K58.1 - Irritable bowel syndrome with constipation, K80.20 - Calculus of gallbladder without cholecystitis without obstruction Refilled [id number] 36,000-114,000- 180,000 unit (Creon) administer with meals and/or snacks 1 cap PO QID 120 caps 6RF K58.1 - Irritable bowel syndrome with constipation, K80.20 - Calculus of gallbladder without cholecystitis without obstruction sucralfate (Carafate) 2 grams (2 x 1 gram) PO DAILY 60 tabs 3RF K21.9 - Gastro-esophageal reflux disease without esophagitis Coding Level of Care Code Est Pt Level 4 (30342) Diagnoses Gastroesophageal reflux disease without esophagitis K21.9 Esophagitis presence: without esophagitis Cholelithiasis K80.20 Irritable bowel syndrome with constipation K58.1
[2023-05-22 12:14] VITALS: BP 134/80; BMI 44.8
== END 2023-05-22 12:48 | disposition home or self-care (01) ==
PROVIDERS: PCP Registered Nurse; Visit Provider Nurse Practitioner
DX: K21.9 Gastro-esophageal reflux disease without esophagitis (principal); K80.20 Calculus of gallbladder without cholecystitis without obstruction; K58.1 Irritable bowel syndrome with constipation
CPT/HCPCS: 99214

== ENCOUNTER → 2023-05-22 12:05 | Outpatient (BNVA) | payer MEDICAID, SELFPAY | PROVIDERS: PCP Registered Nurse; Visit Provider Nurse Practitioner | DX: K21.9 Gastro-esophageal reflux disease without esophagitis (principal); K58.1 Irritable bowel syndrome with constipation; K80.20 Calculus of gallbladder without cholecystitis without obstruction | CPT/HCPCS: 99212 ==

== ENCOUNTER 2023-05-27 10:06 | Outpatient (AMB) | payer MEDICAID, SELFPAY ==
[2023-05-27 10:10] VITALS: PULSE 89; O2SAT 97; BMI 44.4
--- NOTE | 2023-05-27 10:10 | A.OFFVIS_ITS ---
Intake Vital Signs 05/27/23 10:10 Height 4 ft 11 in Weight 220 lb BMI 44.4 Pulse 89 Pulse Source Pulse Oximeter Pulse Oximetry (%) 97 Oxygen Delivery Method Room Air Intake Visit Reasons: Asthma Silo Painter Required: No Allergies Penicillins Allergy (Severe, Verified 05/27/23 10:11) hives, swelling pollen extracts [POLLEN] Allergy (Severe, Verified 05/27/23 10:11) ITCHING peanut [PEANUT] Allergy (Intermediate, Verified 05/27/23 10:11) RASH plum Allergy (Severe, Uncoded 05/27/23 10:11) swelling HPI HPI Comments History of Present Illness Details The patient is a 62-year-old woman with known severe persistent asthma follow closely by Allergy and also pulmonary. She is currently on Xolair and is also on Breo and Atrovent HFA. She has felt that her respiratory symptoms have improved on this medication. However, lately the last week or 2 she is having more chest congestion and wheezing. She is having to use her nebulizer up to 4 times a day. She is trying to expectorate phlegm and is usually clear in color. Denies any fevers or chills or night sweats or body aches. She also complains of nasal congestion and is feels like she is having better allergies at this time. She has tried multiple nasal spray with a no significant improvement. 04/06/2022 the patient is here for a pulm onary follow-up visit. She has been having hard time with her breathing. Complains of chest tightness and wheezing. Moderate severity. Her inhalers have not been completely effective. She also complains of chest congestion and cough. She is bringing up yellowish phlegm. Difficult to expectorate. In addition to that she is having hard time with her CPAP. The CPAP is shutting off in the middle the night and she has a hard time because of the shortness of breath. She will have Robb go to her home to address the issues with her machine. If the machine is broken beyond repair she is going to [facility] replacement. She will call us once after she has evaluation to make sure that we address any issues with her CPAP. In the meantime the CPAP therapy has been very affecting beneficial when he was working properly. I did adjust the pressures a little bit I increased her maximum pressure to 16. She is using nasal pillows. I did talk about considering getting a chinstrap in order to minimize air leakage in case that is causing the machine to shot up by itself. 06/01/2022 the patient is here for a pultrina timmons follow-up visit. She was doing well until couple days ago when she started developing sinus pain pressure and postnasal drip. She feels congested. She feels like this will go down to her lungs and resulting worsening respiratory complaints. She read treated now. The patient has been using her respiratory medications although she does not have all them available. I will make sure to sent to the pharmacy. She did bring her new CPAP. The CPAP therapy continues to be affecting beneficial. She does use it more than 4 hours. Last night she only used it for 3 hours because she fell asleep washing TV. She is aware that if she does not use it enough she with on going to be able to get supplies. The patient is using nasal pillows. They appear to be affected with the go ahead and send [facility] a prescription for renewal of her supplies at this time. She continues on the Xolair injections. The been affecting beneficial. 11/26/2022 the patient is here for pulcooper christian follow-up visit. The patient has not been feeling well for couple days. She did tested negative for COVID yesterday. Started having flu-like symptoms. Sore throat and also cough. She is having some chest congestion. She is using her nebulizer more often. Prior to this illness she was doing just fine her current respiratory regimen. She continues on the Xolair injections. The patient also continues her CPAP therapy she does use it more than 4 hours a night. She does get supplies from [facility]. We had sent a prescription back in May but she has yet to receive them. Therefore, will send another script for her to continue getting her supplies to her [employer] company. Will go ahead and swab her for flu RSV and COVID right now. If the patient has abnormal result I will let her know. Otherwise she will start a prednisone taper and some antibiotics to treat her for a respiratory infectious process. 04/05/2023 the patient is here for sick vi sit. She has been sick now for about 4 days. She started developing fevers and chills. Also nasal congestion and sore throat. The patient was noticing increasing chest tightness shortness of breath and wheezing. Therefore she called for an appointment. The patient did have a nasal swab in the office. Was negative for RSV, flu and COVID-19. The patient does have significant wheezing on examination. She is also coughing with some chest congestion. Mucus is yellowish in color. The patient has been using her respiratory therapy. She needs an additional nebulized therapy. She continues use Mucinex as needed for the chest congestion. This time will going to go ahead and send the additional medications to the pharmacy to treat an asthma exacerbation due to a viral syndrome. She is also struggling getting supplies from her [employer] [employer]. We did call them it seems that mayda durham is up today. However she needs to make an appointment to be able to filler picker her equipment. She is using the P 10 mask the seems to be the most comfortable for her. [facility] Medical History Personal history of nicotine dependence Morbid obesity GEORGIE (obstructive sleep apnea) (~2007) Tubular adenoma of colon (~2014) Chronic allergic rhinitis Bronchitis Asthma Surgical History History of endometrial ablation History of colonoscopy History of section Family History Father No problems noted. 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 Review of Systems Const Reports difficulty sleeping and Denies night sweats Eyes Reports irritation and Reports itchy eyes ENT Denies change in voice, Denies lip swelling, Reports nasal congestion, Reports nasal discharge and Reports post nasal drip Card Denies chest pain and Reports leg edema Resp Reports cough, Denies stridor and Reports wheezing GI Denies abdominal pain Musc Denies no additional complaints Neuro Denies Neuro-related abnormal movements Psych Denies no additional complaints Dalton/Lymph Denies easy bleeding and Denies lymphadenopathy Aller/Immun Reports itchy eyes, Denies lip swelling and Reports wheezing Physical Exam Vital Signs: Last Vital Signs Pulse 89 05/27/23 10:10 Pulse Ox 97 05/27/23 10:10 Oxygen Delivery Method Room Air 05/27/23 10:10 BMI result Body Mass Index 44.4 Const General: alert Eyes Conjunctivae: conjunctival abnormal bilateral conjunctival injection and discharge Pupils: Equal, round and reactive pupils present Neck Neck: Yes normal visual inspection, Yes full ROM and Yes no lymphadenopathy Resp Auscultation: no rhonchi, no wheezes and diminished lung sounds Cardio Rate: regular rate Rhythm: regular rhythm Heart sounds: S1 normal heart sound present and S2 normal heart sound present GI Palpation (GI): Soft to palpation and nontender Auscultation: normal bowel sounds Skin General skin exam: rashes and/or lesions noted Neuro Cranial nerves: Yes Equal, round and reactive pupils present Extrem General: Yes edema Assessment & Plan Assessment & Plan (1) Asthma: Code(s): J45.909 - Unspecified asthma, uncomplicated Qualifiers: Asthma complication type: with acute exacerbation Asthma persistence: persistent Asthma severity: severe Qualified Code(s): J45.51 - Severe persistent asthma with (acute) exacerbation (2) Chronic allergic rhinitis: Code(s): J30.9 - Allergic rhinitis, unspecified (3) GEORGIE (obstructive sleep apnea): Onset Date: ~2007 Code(s): G47.33 - Obstructive sleep apnea (adult) (pediatric) (4) GERD (gastroesophageal reflux disease): Code(s): K21.9 - Gastro-esophageal reflux disease without esophagitis Qualifiers: Esophagitis presence: without esophagitis Qualified Code(s): K21.9 - Gastro-esophageal reflux disease without esophagitis Plan Continue Xolair twice a month , consider Tezspire if no better Short-acting beta agonist as needed Trelegy inhaler 200 mcg daily Epi pen as needed start eye drops start Qnasl start Astelin nasal spray Antihistamines Prednisone if no better Lasix x 3 days continue CPAP , needs supplies weight management Dymista nasal spray not available Lung cancer screening program Follow-up in 4-6 months Orders: Referrals Allergy & Immunology Referral J45.909 - Unspecified asthma, uncomplicated Medications: New neomycin-polymyxin B-dexameth 3.5mg/mL-10,000 unit/mL-0.1 % 1 drp ophthalmic (eye) Q12H 10 days 5 mL 0RF beclomethasone dipropionate 80 mcg/actuation (QNASL) administer into one nostril 2 sprays intranasal DAILY 10.6 grams 0RF furosemide (Lasix) 20 mg PO DAILY 7 days 7 tabs 0RF prednisone PO daily; Take 2 tabs daily x 5 days, then 1 tablet daily x 5 days 10 days 15 tabs 0RF azelastine administer into each nostril 2 sprays intranasal BID 30 days 30 mL 11RF Refilled owykhunmfwl-[id number] 200-62.5-25 mcg (Trelegy Ellipta) 1 inh inhalation DAILY 30 days 60 ea 12RF Coding Level of Care Code Est Pt Level 4 (53172) Diagnoses Severe persistent asthma with acute exacerbation J45.51 Asthma complication type: with acute exacerbation Asthma persistence: persistent Asthma severity: severe Chronic allergic rhinitis J30.9 GEORGIE (obstructive sleep apnea) G47.33 Gastroesophageal reflux disease without esophagitis K21.9 Esophagitis presence: without esophagitis Time Spent (min) 17
== END 2023-05-27 10:37 | disposition home or self-care (01) ==
PROVIDERS: Referring Provider Internal Medicine; Visit Provider Hospitalist
DX: J45.51 Severe persistent asthma with (acute) exacerbation (principal); J30.9 Allergic rhinitis, unspecified; G47.33 Obstructive sleep apnea (adult) (pediatric); K21.9 Gastro-esophageal reflux disease without esophagitis
CPT/HCPCS: 99214

== ENCOUNTER → 2023-05-27 10:06 | Outpatient (BNVA) | payer MEDICAID, SELFPAY | PROVIDERS: Visit Provider Hospitalist | DX: J45.51 Severe persistent asthma with (acute) exacerbation (principal); J30.9 Allergic rhinitis, unspecified; G47.33 Obstructive sleep apnea (adult) (pediatric); K21.9 Gastro-esophageal reflux disease without esophagitis; Z87.891 Personal history of nicotine dependence | CPT/HCPCS: 99212 ==

== ENCOUNTER 2023-06-17 09:08 | Emergency (ER) | payer MEDICAID, SELFPAY ==
--- NOTE | ~2023-06-17 | XR_ITS ---
EXAMINATION: XR THORACIC SPINE CLINICAL INFORMATION: Back pain. COMPARISON: CT dated 08/24/2022 TECHNIQUE: 3 views of the thoracic spine were obtained. FINDINGS: Small marginal osteophytes are present at multiple levels in the thoracic spine. Vertebral body heights and intervertebral disc heights appear relatively well-preserved. Mild right convex thoracic curvature. No aggressive osseous lesions. No fractures are identified. Imaged ribs appear intact. More pronounced degenerative disc disease is evident within the imaged portion of the lower cervical spine. No acute soft tissue findings. XR/XR thoracic spine 3V IMPRESSION: 1. Minimal degenerative disc disease in the thoracic spine. No acute osseous findings. 2. More pronounced degenerative disc disease in the lower cervical spine.
--- NOTE | ~2023-06-17 | XR_ITS ---
EXAMINATION: XR SHOULDER, RIGHT XR SHOULDER, LEFT CLINICAL INFORMATION: Pain. COMPARISON: None TECHNIQUE: Three views of each shoulder. FINDINGS: RIGHT SHOULDER: Mild glenohumeral and acromioclavicular osteoarthritis. Osteophytes are most pronounced along the inferior aspect of the glenoid. No fractures. Alignment is appropriate. No soft tissue calcifications. LEFT SHOULDER: Mild glenohumeral and acromioclavicular osteoarthritis. As on the contralateral side, osteophytes the glenoid most pronounced inferiorly. No fracture or malalignment. Bone mineralization is normal. Soft tissues are unremarkable. XR/XR shoulder LT min 2V IMPRESSION: Mild glenohumeral and acromioclavicular osteoarthritis bilaterally. No acute osseous findings.
--- NOTE | ~2023-06-17 | CT_ITS ---
EXAMINATION: CT ANGIOGRAM OF THE CHEST WITHOUT AND WITH CONTRAST CLINICAL INFORMATION: Chest pain radiating to the back COMPARISON: CTA from 04/10/2013 TECHNIQUE: Multidetector volumetric CT imaging of the chest was performed before and after the administration of 70 mL of Omnipaque 350 intravenous contrast without immediate adverse reactions. 3D POSTPROCESSING: Multiple 3-D angiographic images were processed from the initial data set by the electroneurodiagnostic technologist at the modality workstation under concurrent physician supervision. DOSE LOWERING TECHNIQUES: This CT examination was performed using dose optimization techniques as appropriate, variously including the following: - Automated exposure control - Adjustment of mA and/or kV according to patient size (this includes techniques or standardized protocols for targeted exams where dose is matched to indication/reason for exam; i.e. extremities or head) - Use of iterative reconstruction technique DLP: 396 mGy-cm. FINDINGS: VASCULAR: ASCENDING AORTA: Normal caliber and patent. No evidence of aneurysm or dissection. AORTIC ARCH: Normal caliber and patent. No evidence of aneurysm or dissection. Normal 3 vessel branching anatomy. Branch vessels are widely patent. DESCENDING AORTA: Normal caliber and patent. No evidence of aneurysm or dissection. ABDOMINAL AORTA: Visualized proximal abdominal aorta is normal in caliber. PULMONARY ARTERY: No evidence of acute pulmonary embolus. Pulmonary artery is normal in size. NONVASCULAR: LUNGS: There is mosaic attenuation within the lung parenchyma which could represent small airway disease. No focal airspace infiltrates seen. Minimal atelectasis seen in the lingula. MEDIASTINUM: Heart is normal in size. No pericardial effusion. CORONARY ARTERY CALCIFICATION: None visualized on this study. PLEURA: There is no pleural effusion. No pleural mass or thickening. ABDOMINAL VISCERA: Unremarkable OSSEOUS STRUCTURES: Unremarkable. CT/CT angio chest aorta IMPRESSION: 1. Normal CTA of the chest. No evidence of aortic aneurysm or dissection. 2. No evidence of acute pulmonary embolus. 3. Mosaic attenuation within the lung parenchyma which could represent underlying small airway disease.
--- NOTE | ~2023-06-17 | XR_ITS ---
EXAMINATION: XR SHOULDER, RIGHT XR SHOULDER, LEFT CLINICAL INFORMATION: Pain. COMPARISON: None TECHNIQUE: Three views of each shoulder. FINDINGS: RIGHT SHOULDER: Mild glenohumeral and acromioclavicular osteoarthritis. Osteophytes are most pronounced along the inferior aspect of the glenoid. No fractures. Alignment is appropriate. No soft tissue calcifications. LEFT SHOULDER: Mild glenohumeral and acromioclavicular osteoarthritis. As on the contralateral side, osteophytes the glenoid most pronounced inferiorly. No fracture or malalignment. Bone mineralization is normal. Soft tissues are unremarkable. XR/XR shoulder RT min 2V IMPRESSION: Mild glenohumeral and acromioclavicular osteoarthritis bilaterally. No acute osseous findings.
[2023-06-17 09:30] VITALS: BP 147/84; PULSE 91; RESP 18; TEMP 36.7; O2SAT 99; BMI 44.4
--- NOTE | 2023-06-17 12:31 | ED_ITS ---
HPI - General Adult General Chief complaint: Back Pain/Injury Stated complaint: sob, shoulder blade pain Time Seen by Provider: 06/17/23 12:03 Source: patient Mode of arrival: ambulatory Limitations: no limitations History of Present Illness HPI narrative: 62-year-old female history of asthma, morbid obesity, GERD, IBS, HTN, and fatty liver presents to the ED for 2 weeks bilateral shoulder pain and thoracic back pain with intermittent chest pain and shortness of breath. Patient states worse on movement. Patient denies any recent trauma. Patient denies any pleurisy. Patient denies any leg swelling, calf pain, or coughing up blood. patient states no relief with muscle relaxer. patient denies any IV drug use, pmh of DM, or HIV/HEPC history. patient states no fever or chills. patient states no abdominal pain, nausea, vomitting, flank pain, dysuria, hematuria, rash, dizziess, weakness in legs, or urinay/bowel incontinence. Related Data Home Medications ?Medication ?Instructions ?Recorded ?Confirmed ezetimibe 10 mg tablet (Zetia) 10 mg PO DAILY 05/26/21 09/18/21 clonazepam 0.5 mg tablet 0.5 mg PO BEDTIME 10/17/21 hydroxyzine HCl 25 mg tablet 25 - 50 mg PO QID PRN anxiety 10/17/21 triamcinolone acetonide 55 mcg 2 spray intranasal DAILY 10/17/21 nasal spray aerosol nebulizers 11/28/21 CPAP (CPAP Machine/Device) 04/06/22 duloxetine 30 mg capsule,delayed 30 mg PO 06/27/22 release omega-3 300 mg-dha 120 mg-epa 180 1 cap PO QAM 06/27/22 mg-fish oil 1,000 mg capsule metoprolol succinate 25 mg 50 mg PO BID 05/27/23 tablet,extended release 24 hr Previous Rx's ?Medication ?Instructions ?Recorded epinephrine 0.3 mg/0.3 mL 0.3 mg (0.3 mL) IM Q10M PRN 06/01/22 injection, auto-injector (EpiPen anaphylaxis 30 days #2 ea 2-Rell) umeclidinium 62.5 mcg/actuation 1 inh inhalation DAILY 30 days #30 06/06/22 blister powder for inhalation ea (Incruse Ellipta) omalizumab 150 mg/mL subcutaneous 150 mg subcut Q2W 4 weeks #2 mL 10/18/22 syringe (Xolair) ipratropium bromide 17 2 puff PO Q8H #12.9 grams 11/05/22 mcg/actuation HFA aerosol inhaler (Atrovent HFA) cyclobenzaprine 5 mg tablet 5 mg PO TID PRN muscle spasm #10 11/12/22 tabs lidocaine 5 % topical patch 1 patch topical DAILY #15 ea 11/12/22 (Lidoderm) pantoprazole 40 mg tablet,delayed 40 mg PO BID #60 tabs 11/29/22 release albuterol sulfate 2.5 mg/3 mL 2.5 mg (3 mL) inhalation Q6H PRN 04/05/23 (0.083 %) solution for nebulization for wheezing 30 days #180 mL levalbuterol tartrate 45 2 puff PO Q6H PRN for wheezing #15 04/05/23 mcg/actuation aerosol inhaler grams levocetirizine 5 mg tablet 5 mg PO DAILY #30 tabs 04/05/23 azelastine 137 mcg-fluticasone 50 1 spray intranasal BID #23 grams 04/18/23 mcg/spray nasal spray (Dymista) bsmcxe-ldfpkcyp-qjxrwxg 2 cap PO BID #120 caps 05/22/23 36,000-114,000-180,000 unit capsule,delay rel (Creon) sucralfate 1 gram tablet (Carafate) 2 g (2 x 1 gram) PO DAILY #60 tabs 05/22/23 azelastine 137 mcg (0.1 %) nasal 2 spray intranasal BID 30 days #30 05/27/23 spray aerosol mL beclomethasone dipropionate 80 2 spray intranasal DAILY #10.6 05/27/23 mcg/actuation nasal HFA inhaler grams (QNASL) fluticasone fur. 200 mcg-umeclid 1 inh inhalation DAILY 30 days #60 05/27/23 62.5 mcg-vilant 25 mcg ea inhalat.powder (Trelegy Ellipta) furosemide 20 mg tablet (Lasix) 20 mg PO DAILY 7 days #7 tabs 05/27/23 hinnplfc-ycqpfbwdq-ubhtossc 3.5 1 drp ophthalmic (eye) Q12H 10 05/27/23 mg/mL-10,000 unit/mL-0.1% eye drops days #5 mL prednisone 20 mg tablet See Rx Instructions PO DAILY 10 05/27/23 days #15 tabs mometasone 50 mcg/actuation nasal 2 spray intranasal DAILY #17 grams 06/07/23 spray (Nasonex 24hr Allergy) azithromycin 250 mg tablet 250 mg PO DAILY 4 days #4 tabs 06/17/23 cyclobenzaprine 10 mg tablet 10 mg PO TID PRN muscle spasm #9 06/17/23 tabs fluticasone furoate 200 1 inh inhalation DAILY 30 days #60 06/17/23 mcg-vilanterol 25 mcg/dose ea inhalation powder (Breo Ellipta) prednisone 20 mg tablet 40 mg (2 x 20 mg) PO DAILY 5 days 06/17/23 #10 tabs umeclidinium 62.5 mcg/actuation 1 inh inhalation DAILY 30 days #30 06/17/23 blister powder for inhalation ea (Incruse Ellipta) Allergies Allergy/AdvReac Type Severity Reaction Status Date / Time Penicillins Allergy Severe hives, Verified 06/17/23 09:37 swelling pollen extracts [POLLEN] Allergy Severe ITCHING Verified 06/17/23 09:37 peanut [PEANUT] Allergy Intermediate RASH Verified 06/17/23 09:37 plum Allergy Severe swelling Uncoded 05/27/23 10:11 Review of Systems 2 Review of Systems: Back pain bilateral Yes all other systems are reviewed and are negative [facility] Past Medical History Medical History Personal history of nicotine dependence Morbid obesity GEORGIE (obstructive sleep apnea) (~2007) Tubular adenoma of colon (~2014) Chronic allergic rhinitis Bronchitis Asthma Surgical History History of endometrial ablation History of colonoscopy History of section Family History Family History Father No problems noted. 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 Physical Exam ED Vital Signs: Vital Signs - 24 hr 06/17/23 16:26 06/17/23 16:27 06/17/23 18:01 Temperature 98.8 F Pulse Rate 85 85 Respiratory Rate 18 18 18 Blood Pressure 139/72 Pulse Oximetry 95 Oxygen Delivery Method Room Air 06/17/23 19:30 06/17/23 20:44 Temperature 99.3 F 98.9 F Pulse Rate 82 80 Respiratory Rate 22 H 20 Blood Pressure 126/51 L 122/50 L Pulse Oximetry 97 97 Oxygen Delivery Method Room Air Room Air BMI result Body Mass Index 44.4 Const General: cooperative, healthy appearing, comfortable, no acute distress, well developed, alert, awake and Physically active Orientation/consciousness: oriented to person, oriented to place, oriented to time and patient oriented x3 HENMT Head: Yes normal to inspection, Yes No palpable skull fracture present, Yes normocephalic, Yes atraumatic and No abrasion Throat: Yes posterior oropharynx normal, Yes tonsils normal and Yes uvula midline Eyes General: appearance normal, both eyes and all related structures Neck Neck: Yes normal visual inspection, Yes full ROM, Yes no lymphadenopathy, Yes no meningeal signs, Yes trachea midline, Yes supple, No anterior neck swelling and No tender Chest Chest palpation & inspection: normal inspection of the chest and normal palpation of entire chest wall Resp Effort & Inspection: normal respiratory effort and able to speak in complete sentences Auscultation: clear to auscultation bilaterally Cardio Jugular venous distension: no JVD Heart sounds: S1 normal heart sound present and S2 normal heart sound present GI Inspection: Yes normal to inspection Palpation (GI): Soft to palpation, not firm, nontender, no guarding and not rigid General: Yes no CVA tenderness Back/Spine/Pelvis Back: no CVA tenderness and back tenderness ( thoracic) Back/spine/pelvis image: 2 1. tenderness on palpation. Negative for crepitus, ecchymosis, deformity, or rash. 2. tenderness on palpation. Negative for crepitus, ecchymosis, deformity, or rash. 3. tenderness on palpation. Negative for crepitus, ecchymosis, deformity, or rash. Skin General skin exam: no rashes or lesions noted, elasticity normal and turgor normal Neuro General: oriented to person, oriented to place, oriented to time, patient oriented x3, gait normal, tone normal, moves all extremities, Normal light touch and pain sensation, no meningeal signs, no focal motor deficits, CN's II-XI intact bilaterally and normal sensation to monofilament Extrem Other: Bilateral lower extremity negative for swelling, pitting edema, calf tenderness General: Yes normal to inspection, Yes full ROM and Yes capillary refill normal Shoulder/upper arm images: 2 1. Positive for tenderness on palpation. Negative for swelling, ecchymosis, crepitus, deformity, erythema, bluish black discoloration, rash. Motor/neuro /vascular exam of extremity intact. 2. Positive for tenderness on palpation. Negative for swelling, ecchymosis, crepitus, deformity, erythema, bluish black discoloration, rash. Motor/neuro /vascular exam of extremity intact. Psych Appearance: grossly normal, well kempt and not disheveled Course Reevaluation(s) Reevaluation #1: 06/17/21: patient was called to see how she was doing with the back pain. She states back pain is better. Patient denies any fever or neurodeficits. Patient was informed if the back pain worsened, constant, has fever/chills, or any other concerning symptoms these should return to the ED immediately. Medications Administered Discontinued Medications Generic Name Dose Route Start Last Admin Trade Name Freq PRN Reason Stop Dose Admin Albuterol Sulfate 8 puff 06/17/23 17:56 06/17/23 17:58 Albuterol Sulfate 90 Mcg 8 Gm Inhaler INHALE 06/17/23 17:57 8 puff ONCE ONE Administration Azithromycin 500 mg 06/17/23 20:34 06/17/23 20:41 Azithromycin 500 Mg Tablet PO 06/17/23 20:35 500 mg ONCE ONE Administration Iohexol 100 ml 06/17/23 17:00 06/17/23 17:00 Iohexol 350 Mg/Ml 100 Ml Infus..Btl IV 06/17/23 17:01 70 ml ONCE ONE Administration Morphine Sulfate 4 mg 06/17/23 15:51 06/17/23 16:27 Morphine Sulfate 4 Mg/Ml Cartridge IVPUSH 06/17/23 15:52 4 mg ONCE ONE Administration Protocol Medical Decision Making Medical Decision Making [facility] Narrative: 62-year-old female history of asthma, hypertension, presents to the ED for back pain, bilateral shoulder pain, and intermittent chest pain and SOB for the past 2 weeks. Patient states pain is worse on movement. Patient denies any pleurisy, leg swelling, calf pain, coughing up blood, recent long travel, recent surgery, fever, or chills. D-dimer negative. Wells criteria is 0. due to patient having chest pain with thoracic back pain radiating to shoulders was concern for dissection although patient's blood pressure normal. Sent for chest CTA. Patient's white blood cell count [id number]. We will also check for pneumonia. Morphine ordered 5:30pm: patient states her asthma acting up with some coughing. Positive wheezing on exam albuterol nebulizer ordered. 7:02pm; Patient feels better albuterol hit albuterol treatment. Chest CTA negative for dissection. Chest CTA shows positive small airway disease. Bilateral shoulder x-ray shows glenohumeral arthritis. Thoracic spine x-ray shows degenerative arthritis and cervical arterhtitis. Patient is safe for discharge. Patient will be discharged with steroids and oxycodone for pain. Patient also be discharged with azithromycin for bronchitis. Patient informed to continue using her albuterol pump. not suspecting epidural abscess or cauda equinus syndrome. Patient denies any urinary bowel incontinence and denies any history of IV drug use or history of HIV or hep C. Patient explained worrisome signs and informed to return if she has them. Patient is not septic. Lactic acid negative. Chest CT is negative for obvious pneumonia, but does show small ariway disease. Not suspecting abdominal etiology. No abdominal tenderness on palpation. no need for Abdominal CT sacn. UA negative for UTI. Abdomen exam is benign. no need for abdominal imaging. spine tenderness resolved. Differential Diagnosis Differential Diagnoses: The differential diagnosis associated with the presentation includes ( Pneumonia, aortic dissection, thoracic spinal arthritis, shoulder fracture, shoulder dislocation, shoulder arthritis, CHF, m) Admission/Observation Consideration of admission/observation: Escalation of care including admission/observation considered Lab Data [facility] Lab Attestation statement: I reviewed the patient's lab results. 06/17/23 14:41 06/17/23 14:41 Labs: Lab Results 06/17/23 06/17/23 06/17/23 Range/Units 14:41 17:43 19:29 WBC 21.4 H (4.8-10.8) X10*3/uL RBC 4.44 (4.20-5.50) X10*6/uL Hgb 12.8 (12.0-16.0) g/dl Hct 38.5 (37.0-47.0) % MCV 86.7 (80.0-98.0) fL MCH 28.8 (27.0-33.0) pg MCHC 33.2 (31.0-35.0) g/dl RDW 14.2 (11.0-16.0) % Plt Count 264 (160-400) X10*3/uL MPV 10.9 (9.4-12.3) fL Immature Gran % (Auto) 0.4 (0.0-0.4) % Neut % (Auto) 87.3 H (45-73) % Lymph % (Auto) 7.6 L (20-40) % Jennings % (Auto) 4.2 (2-11) % Eos % (Auto) 0.3 (0-4) % Baso % (Auto) 0.2 (0-2) % Lymph # (Auto) 1.6 (1.2-4.9) X10*3/uL Jennings # (Auto) 0.9 (0.1-1.2) X10*3/uL Eos # (Auto) 0.1 (0.0-0.4) X10*3/uL Baso # (Auto) 0.1 (0.0-0.2) X10*3/uL Abs Immat Gran (auto) 0.08 H (0.00-0.03) X10*3/uL Absolute Neuts (auto) 18.7 H (2.0-8.3) x10*3/uL Absolute Nucleated RBC 0.000 (0.0-0.012) X10*3/uL Nucleated RBC % (auto) 0.0 (0.0-0.2) /100WBC PT 11.7 (11.1-13.3) SEC INR 1.0 (0.9-1.1) APTT 33.1 (26.0-36.8) SEC D-Dimer High Sensitivty < 150 NG/ML Sodium 141 (135-145) mmol/L Potassium 3.6 (3.3-5.1) mmol/L Chloride 106 (96-108) mmol/L Carbon Dioxide 27 (22-29) mmol/L Anion Gap 12 (12-20) BUN 14 (9-16) mg/dL Creatinine 0.74 (0.5-1.4) mg/dL Estim Creat Clear Calc 84.0 Estimated GFR > 60 Random Glucose 104 (60-115) mg/dL Lactic Acid 1.7 (0.5-2.0) mmol/L Calcium 9.1 (8.4-10.2) mg/dL Total Bilirubin 1.1 H (0.0-1.0) mg/dL AST 19 (5-31) U/L ALT 16 (0-31) U/L Alkaline Phosphatase 75 (39-117) U/L Troponin I High Sens < 2.7 < 2.7 (<3.5-17.0) ng/L B-Natriuretic Peptide 41 (<100) pg/mL Total Protein 7.1 (6.5-8.0) g/dL Albumin 3.8 (3.5-5.0) g/dL Urine Color Yellow Urine Appearance Clear Urine pH 5.5 (5.0-9.0) Ur Specific [place] >= 1.030 H (1.005-1.025) Urine Protein Trace (Neg-Trace) mg/dL Urine Glucose (UA) Negative (Negative) mg/dL Urine Ketones Negative (Negative) mg/dL Urine Blood Negative (Negative) Urine Nitrite Negative (Negative) Ur Leukocyte Esterase Negative (Negative) Independent Interpretation I performed an independent interpretation of an: EKG ( normal sinus rhythm. Negative STEMI), Plain X-Ray and CT Scan Radiology Impression Discussion of test interpretation with radiology: I have reviewed the radiologist's reading. Independent Historian Clinical information obtained from an independent historian. History obtained from or confirmed by: Other ( patient) External Record Review External record reviewed: Other ( prior visit) Prescription Management I considered prescription management with: Pain Medication, Antibiotic and Other ( steroids) Discharge Plan Discharge Clinical Impression: Bronchitis, Arthritis of shoulder, Cervical radiculopathy, Radiculopathy of thoracic region Patient Disposition: Home, Self-Care Instructions: Osteoarthritis (ED), Acute Bronchitis (ED), Cervical Radiculopathy (ED), Back Pain (ED), Degenerative Disc Disease (ED) Additional Instructions: x-ray of the spine shows thoracic and cervical spine degenerative disc disease. Bilateral shoulder x-ray shows glenohumeral joint osteoarthritis. Chest CTA negative for aortic dissection. Blood work came back negative for risk of heart attack, blood clot, or heart failure. Chest CTA shows small where airway disease. You will be discharged with azithromycin and prednisone. Recommend using your albuterol inhaler at home. Return to the ED immediately for any urinary/ bowel incontinence, fever, chills, chest pain, shortness of breath, nausea, vomiting, paralysis of upper and lower extremities, facial droop, loss of vision, headache, dizziness, worsening back pain or any other concerning symptoms. Prescriptions: New prednisone 20 mg tablet 40 mg PO DAILY 5 Days Qty: 10 0RF azithromycin 250 mg tablet 250 mg PO DAILY 4 Days Qty: 4 0RF Rx Instructions: start on day 2 of therapy cyclobenzaprine 10 mg tablet 10 mg PO TID PRN (Reason: muscle spasm) Qty: 9 0RF No Action Incruse Ellipta 62.5 mcg/actuation blister with device 1 inh inhalation DAILY 30 Days Qty: 30 11RF Xolair 150 mg/mL syringe 150 mg subcut Q2W 28 Days Qty: 2 11RF Atrovent HFA 17 mcg/actuation HFA aerosol inhaler 2 puff PO Q8H Qty: 12.9 11RF pantoprazole 40 mg tablet,delayed release (DR/EC) 40 mg PO BID Qty: 60 6RF levalbuterol tartrate 45 mcg/actuation HFA aerosol inhaler 2 puff PO Q6H PRN (Reason: for wheezing) Qty: 15 0RF azelastine-fluticasone [Dymista] 137-50 mcg/spray spray,non-aerosol 1 spray intranasal BID Qty: 23 11RF Rx Instructions: administer into each nostril mometasone [Nasonex 24hr Allergy] 50 mcg/actuation spray,non-aerosol 2 spray intranasal DAILY Qty: 17 12RF Rx Instructions: administer into each nostril fluticasone furoate-vilanterol [Breo Ellipta] 200-25 mcg/dose blister with device 1 inh inhalation DAILY 30 Days Qty: 60 11RF Incruse Ellipta 62.5 mcg/actuation blister with device 1 inh inhalation DAILY 30 Days Qty: 30 11RF cyclobenzaprine 5 mg tablet 5 mg PO TID PRN (Reason: muscle spasm) Qty: 10 0RF lidocaine [Lidoderm] 5 % adhesive patch,medicated 1 patch topical DAILY Qty: 15 0RF Rx Instructions: leave on most painful area for up to 12 hrs metoprolol succinate 25 mg tablet extended release 24 hr 50 mg PO BID clonazepam 0.5 mg tablet 0.5 mg PO BEDTIME ezetimibe [Zetia] 10 mg tablet 10 mg PO DAILY (DME) CPAP Machine/Device Device See Rx Instructions .ROUTE Rx Instructions: As directed epinephrine [EpiPen 2-Rell] 0.3 mg/0.3 mL auto-injector 0.3 mg IM Q10M PRN (Reason: anaphylaxis) 30 Days Qty: 2 6RF Rx Instructions: for 2 doses hydroxyzine HCl 25 mg tablet 25 - 50 mg PO QID PRN (Reason: anxiety) triamcinolone acetonide 55 mcg aerosol,spray 2 spray intranasal DAILY (DME) nebulizers Mis See Rx Instructions .ROUTE Rx Instructions: As directed duloxetine 30 mg capsule,delayed release(DR/EC) 30 mg PO omega 2-ctl-fqx-fish oil 300 mg (120 mg- 180mg)-1,000 mg capsule 1 cap PO QAM neomycin-polymyxin B-dexameth 3.5mg/mL-10,000 unit/mL-0.1 % drops,suspension 1 drp ophthalmic (eye) Q12H 10 Days Qty: 5 0RF azelastine 137 mcg (0.1 %) aerosol,spray 2 spray intranasal BID 30 Days Qty: 30 11RF Rx Instructions: administer into each nostril QNASL 80 mcg/actuation HFA aerosol inhaler 2 spray intranasal DAILY Qty: 10.6 0RF Rx Instructions: administer into one nostril furosemide [Lasix] 20 mg tablet 20 mg PO DAILY 7 Days Qty: 7 0RF prednisone 20 mg tablet See Rx Instructions PO DAILY 10 Days Qty: 15 0RF Rx Instructions: PO daily; Take 2 tabs daily x 5 days, then 1 tablet daily x 5 days Trelegy Ellipta 200-62.5-25 mcg blister with device 1 inh inhalation DAILY 30 Days Qty: 60 12RF levocetirizine 5 mg tablet 5 mg PO DAILY Qty: 30 11RF albuterol sulfate 2.5 mg /3 mL (0.083 %) solution for nebulization 2.5 mg inhalation Q6H PRN (Reason: for wheezing) 30 Days Qty: 180 11RF Creon 36,000-114,000- 180,000 unit capsule,delayed release(DR/EC) 2 cap PO BID Qty: 120 6RF Rx Instructions: administer with meals and/or snacks sucralfate [Carafate] 1 gram tablet 2 g PO DAILY Qty: 60 3RF Rx Instructions: PLEASE BE SURE TO PACKAGE IT 2 TABS AT THE SAME TIME, NOT TWICE A DAY TO AVOID THIS MEDICATION INTERFERING WITH THE ABSORPTION OF OTHER MEDICINES Stand Alone Forms: Work/School Release Interventions: ED Discharge Assessment Last Done: 06/17/23 20:44 Discharge Date/Time: 06/17/23 20:47 Print Language: [place]
--- NOTE | 2023-06-17 13:44 | ECG_ITS ---
Test Reason : CHEST PAIN Blood Pressure : / mmHG Vent. Rate : 079 BPM Atrial Rate : 079 BPM P-R Int : 138 ms QRS Dur : 074 ms QT Int : 386 ms P-R-T Axes : 028 027 028 degrees QTc Int : 442 ms Normal sinus rhythm Normal ECG When compared with ECG of 04-MAR-2023 16:00, No significant change was found Referred By: Keaton Jospeh Electronically Signed By:RO BRITO MD
[2023-06-17 14:46] LABS: MANUAL DIFF FLAG NO
[2023-06-17 14:53] LABS: Basophils Absolute Auto 0.1 X10*3/uL (0.0-0.2); Basophils Percent Auto 0.2 % (0-2); Eosinophils Absolute Auto 0.1 X10*3/uL (0.0-0.4); Eosinophils Percent Auto 0.3 % (0-4); Hematocrit 38.5 % (37.0-47.0); Hemoglobin 12.8 g/dl (12.0-16.0); Imm Gran Abs Auto 0.08 X10*3/uL (0.00-0.03); Imm Gran Pct Auto 0.4 % (0.0-0.4); Lymphocytes Absolute Auto 1.6 X10*3/uL (1.2-4.9); Lymphocytes Percent Auto 7.6 % (20-40); Mean Corpuscular HGB Conc 33.2 g/dl (31.0-35.0); Mean Corpuscular Hemoglobin 28.8 pg (27.0-33.0); Mean Corpuscular Volume 86.7 fL (80.0-98.0); Mean Platelet Volume 10.9 fL (9.4-12.3); Monocytes Absolute Auto 0.9 X10*3/uL (0.1-1.2); Monocytes Percent Auto 4.2 % (2-11); Neutrophils Absolute Auto 18.7 x10*3/uL (2.0-8.3); Neutrophils Percent Auto 87.3 % (45-73); Platelet Count 264 X10*3/uL (160-400); Prothrombin Time 11.7 SEC (11.1-13.3); Red Blood Count 4.44 X10*6/uL (4.20-5.50); Red Cell Distribution Width 14.2 % (11.0-16.0); White Blood Count 21.4 X10*3/uL (4.8-10.8)
[2023-06-17 14:55] LABS: Partial Thromboplastin Time 33.1 SEC (26.0-36.8)
[2023-06-17 15:04] LABS: Alanine Aminotransferase 16 U/L (0-31); Albumin Level 3.8 g/dL (3.5-5.0); Alkaline Phosphatase 75 U/L (39-117); Anion Gap 12 (12-20); Aspartate Amino Transferase 19 U/L (5-31); Bilirubin Total 1.1 mg/dL (0.0-1.0); Blood Urea Nitrogen 14 mg/dL (9-16); Calcium 9.1 mg/dL (8.4-10.2); Carbon Dioxide 27 mmol/L (22-29); Chloride 106 mmol/L (96-108); Estimated Glomerular Filt Rate > 60; Glucose Random 104 mg/dL (60-115); Potassium 3.6 mmol/L (3.3-5.1); Sodium 141 mmol/L (135-145); Total Protein 7.1 g/dL (6.5-8.0)
[2023-06-17 15:07] LABS: B Type Natriuretic Peptide 41 pg/mL (<100)
[2023-06-17 15:11] LABS: Troponin-I High Sensitivity < 2.7 ng/L (<3.5-17.0)
[2023-06-17 15:36] LABS: D Dimer High Sensitivity < 150 NG/ML
[2023-06-17 16:26] VITALS: BP 139/72; PULSE 85; RESP 18; TEMP 37.1; O2SAT 95
[2023-06-17 16:27] VITALS: RESP 18
[2023-06-17] MEDS: Morphine Sulfate 4 MG/ML CARTRIDGE IVPUSH (16:27)
[2023-06-17] MEDS: iohexoL 350 MG/ML 100 ML INFUS..BTL IV (17:00)
[2023-06-17] MEDS: Albuterol Sulfate 90 MCG 8 GM INHALER 8 PUFF INHALE (17:58)
[2023-06-17 18:01] VITALS: PULSE 85; RESP 18; O2SAT 96
[2023-06-17 18:01] LABS: Lactic Acid 1.7 mmol/L (0.5-2.0)
[2023-06-17 18:15] LABS: Troponin-I High Sensitivity < 2.7 ng/L (<3.5-17.0)
[2023-06-17 19:30] VITALS: BP 126/51; PULSE 82; RESP 22; TEMP 37.4; O2SAT 97
[2023-06-17 19:36] LABS: Appearance Urine Clear; Color Urine Yellow; Glucose Urine UA Negative (Negative); Leukocyte Esterase Urine Negative (Negative); Nitrite Urine Negative (Negative); PH 5.5 (5.0-9.0); Specific Gravity - Urine >= 1.030 (1.005-1.025); Urine Blood Negative (Negative); Urine Ketones Negative (Negative); Urine Protein Trace mg/dL (Neg-Trace)
[2023-06-17] MEDS: Azithromycin 500 MG TABLET PO (20:41)
[2023-06-17 20:44] VITALS: BP 122/50; PULSE 80; RESP 20; TEMP 37.2; O2SAT 97
== END 2023-06-17 20:47 | disposition home or self-care (01) ==
PROVIDERS: Physician Assistant; Emergency Provider Emergency Medicine
DX: J40 Bronchitis, not specified as acute or chronic (principal); M19.019 Primary osteoarthritis, unspecified shoulder; M54.12 Radiculopathy, cervical region; M54.14 Radiculopathy, thoracic region; I10 Essential (primary) hypertension
CPT/HCPCS: 36415; 71275; 72072; 73030; 80053; 81003; 83605; 83880; 84484; 85025; 85379; 85610; 85730; 87040; 93005; 94640; 94664; 96374; 99284; 99285; J2270; Q9967

== ENCOUNTER → 2023-06-17 13:44 | Outpatient (BNV) | payer MEDICAID, SELFPAY | PROVIDERS: Emergency Provider Emergency Medicine; Visit Provider Internal Medicine Cardiovascular Disease | DX: R07.9 Chest pain, unspecified (principal) | CPT/HCPCS: 93010 ==

== ENCOUNTER → 2023-07-17 12:15 | Outpatient (BNVA) | payer MEDICAID, SELFPAY | PROVIDERS: PCP Registered Nurse; Visit Provider Nurse Practitioner ==

== ENCOUNTER 2023-07-30 10:26 | Outpatient (AMB) | payer MEDICAID, SELFPAY ==
--- NOTE | 2023-07-30 10:33 | MHC.OFFVIS ---
Vital Signs 07/30/23 10:34 Height 4 ft 11 in Weight 195 lb BMI 39.4 Pulse 80 Pulse Source Pulse Oximeter Pulse Oximetry (%) 97 Oxygen Delivery Method Room Air Intake Visit Reasons: Asthma Beam Racker Required: No Allergies Penicillins Allergy (Severe, Verified 07/30/23 10:36) hives, swelling pollen extracts [POLLEN] Allergy (Severe, Verified 07/30/23 10:36) ITCHING peanut [PEANUT] Allergy (Intermediate, Verified 07/30/23 10:36) RASH plum Allergy (Severe, Uncoded 07/30/23 10:36) swelling HPI Comments Details: The patient is a 62-year-old woman with known severe persistent asthma follow closely by Allergy and also pulmonary. She is currently on Xolair and is also on Breo and Atrovent HFA. She has felt that her respiratory symptoms have improved on this medication. However, lately the last week or 2 she is having more chest congestion and wheezing. She is having to use her nebulizer up to 4 times a day. She is trying to expectorate phlegm and is usually clear in color. Denies any fevers or chills or night sweats or body aches. She also complains of nasal congestion and is feels like she is having better allergies at this time. She has tried multiple nasal spray with a no significant improvement. 04/06/2022 the patient is here for a pulmonary follow-up visit. She has been having hard time with her breathing. Complains of chest tightness and wheezing. Moderate severity. Her inhalers have not been completely effective. She also complains of chest congestion and cough. She is bringing up yellowish phlegm. Difficult to expectorate. In addition to that she is having hard time with her CPAP. The CPAP is shutting off in the middle the night and she has a hard time because of the shortness of breath. She will have Robb go to her home to address the issues with her machine. If the machine is broken beyond repair she is going to [place] replacement. She will call us once after she has evaluation to make sure that we address any issues with her CPAP. In the meantime the CPAP therapy has been very affecting beneficial when he was working properly. I did adjust the pressures a little bit I increased her maximum pressure to 16. She is using nasal pillows. I did talk about considering getting a chinstrap in order to minimize air leakage in case that is causing the machine to shot up by itself. 06/01/2022 the patient is here for a pulmonary follow-up visit. She was doing well until couple days ago when she started developing sinus pain pressure and postnasal drip. She feels congested. She feels like this will go down to her lungs and resulting worsening respiratory complaints. She read treated now. The patient has been using her respiratory medications although she does not have all them available. I will make sure to sent to the pharmacy. She did bring her new CPAP. The CPAP therapy continues to be affecting beneficial. She does use it more than 4 hours. Last night she only used it for 3 hours because she fell asleep washing TV. She is aware that if she does not use it enough she with on going to be able to get supplies. The patient is using nasal pillows. They appear to be affected with the go ahead and send [facility] a prescription for renewal of her supplies at this time. She continues on the Xolair injections. The been affecting beneficial. 11/26/2022 the patient is here for pulmonary follow-up visit. The patient has not been feeling well for couple days. She did tested negative for COVID yesterday. Started having flu-like symptoms. Sore throat and also cough. She is having some chest congestion. She is using her nebulizer more often. Prior to this illness she was doing just fine her current respiratory regimen. She continues on the Xolair injections. The patient also continues her CPAP therapy she does use it more than 4 hours a night. She does get supplies from [facility]. We had sent a prescription back in May but she has yet to receive them. Therefore, will send another script for her to continue getting her supplies to her [employer]. Will go ahead and swab her for flu RSV and COVID right now. If the patient has abnormal result I will let her know. Otherwise she will start a prednisone taper and some antibiotics to treat her for a respiratory infectious process. 04/05/2023 the patient is here for sick visit. She has been sick now for about 4 days. She started developing fevers and chills. Also nasal congestion and sore throat. The patient was noticing increasing chest tightness shortness of breath and wheezing. Therefore she called for an appointment. The patient did have a nasal swab in the office. Was negative for RSV, flu and COVID-19. The patient does have significant wheezing on examination. She is also coughing with some chest congestion. Mucus is yellowish in color. The patient has been using her respiratory therapy. She needs an additional nebulized therapy. She continues use Mucinex as needed for the chest congestion. This time will going to go ahead and send the additional medications to the pharmacy to treat an asthma exacerbation due to a viral syndrome. She is also struggling getting supplies from her [employer] company, [employer]. We did call them it seems that everything is up today. However she needs to make an appointment to be able to strip picker her equipment. She is using the P 10 mask the seems to be the most comfortable for her. 07/30/2023 the patient is here for pulmonary follow-up visit. Overall she is doing well. The patient has been taking the Xolair once a month and seems to be more effective for her she continues on respiratory inhalers. Some mixup with the inhalers. She was supposed to be on Trelegy but only taking Incruse. Therefore explained to her the importance of being on the Trelegy or adding the Breo to her Incruse if is not covered. She will call the office if she can go on Trelegy. She is having issues with back pain and muscle pain. She is waiting for if physical therapy evaluation. In the meantime the patient continues with respiratory therapy with good effect. Seems like her new nasal sprays that working more effectively and the patient has been able to tolerate CPAP. CPAP therapy continues to be affecting beneficial. Otherwise she is without any other complaints. Will follow-up in 4-6 months. [facility] Medical History Personal history of nicotine dependence Morbid obesity GEORGIE (obstructive sleep apnea) (~2007) Tubular adenoma of colon (~2014) Chronic allergic rhinitis Bronchitis Asthma Surgical History History of endometrial ablation History of colonoscopy History of section Family History Father No problems noted. 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 Review of Systems Const Reports difficulty sleeping and Denies night sweats Eyes Reports irritation and Reports itchy eyes ENT Denies change in voice, Denies lip swelling, Reports nasal congestion, Reports nasal discharge and Reports post nasal drip Card Denies chest pain and Reports leg edema Resp Reports cough, Denies stridor and Reports wheezing GI Denies abdominal pain Musc Denies no additional complaints Neuro Denies Neuro-related abnormal movements Psych Denies no additional complaints Dalton/Lymph Denies easy bleeding and Denies lymphadenopathy Aller/Immun Reports itchy eyes, Denies lip swelling and Reports wheezing Physical Exam Vital Signs: Last Vital Signs Pulse 80 07/30/23 10:34 Pulse Ox 97 07/30/23 10:34 Oxygen Delivery Method Room Air 07/30/23 10:34 BMI result Body Mass Index 39.4 Const General: alert Eyes Conjunctivae: conjunctival abnormal bilateral conjunctival injection and discharge Pupils: Equal, round and reactive pupils present Neck Neck: Yes normal visual inspection, Yes full ROM and Yes no lymphadenopathy Resp Auscultation: clear to auscultation bilaterally, no rhonchi and no wheezes Cardio Rate: regular rate Rhythm: regular rhythm Heart sounds: S1 normal heart sound present and S2 normal heart sound present GI Palpation (GI): Soft to palpation and nontender Auscultation: normal bowel sounds Skin General skin exam: rashes and/or lesions noted Neuro Cranial nerves: Yes Equal, round and reactive pupils present Extrem General: Yes edema Assessment & Plan Assessment & Plan (1) Asthma: Code(s): J45.909 - Unspecified asthma, uncomplicated Category: Medical Qualifiers: Asthma complication type: uncomplicated Asthma persistence: persistent Asthma severity: severe Qualified Code(s): J45.50 - Severe persistent asthma, uncomplicated (2) Chronic allergic rhinitis: Code(s): J30.9 - Allergic rhinitis, unspecified Category: Medical (3) GEORGIE (obstructive sleep apnea): Onset Date: ~2007 Code(s): G47.33 - Obstructive sleep apnea (adult) (pediatric) Category: Medical (4) GERD (gastroesophageal reflux disease): Code(s): K21.9 - Gastro-esophageal reflux disease without esophagitis Category: Medical Qualifiers: Esophagitis presence: without esophagitis Qualified Code(s): K21.9 - Gastro-esophageal reflux disease without esophagitis Plan Continue Xolair twice a month Short-acting beta agonist as needed Trelegy inhaler 200 mcg daily Epi pen as needed start eye drops Qnasl Astelin nasal spray Antihistamines Allergy referral continue CPAP , needs supplies weight management Lung cancer screening program Follow-up in 4-6 months Orders: Referrals Allergy & Immunology Referral J45.909 - Unspecified asthma, uncomplicated Medications: New tobramycin-dexamethasone 0.3-0.1 % 2 drps ophthalmic (eye) QID 10 mL 0RF 10 days Refilled epinephrine (EpiPen 2-Rell) for 2 doses 0.3 mg (0.3 mL) IM Q10M PRN 2 ea 6RF anaphylaxis 30 days J45.40 - Moderate persistent asthma, uncomplicated levalbuterol tartrate 45 mcg/actuation 2 puffs PO Q6H PRN 15 grams 11RF for wheezing J45.909 - Unspecified asthma, uncomplicated qzdjuhwwrgi-ojvhgrhnr-uyvfvgwz 200-62.5-25 mcg (Trelegy Ellipta) 1 inh inhalation DAILY 60 ea 12RF 30 days Discontinued fluticasone furoate-vilanterol 200-25 mcg/dose (Breo Ellipta) Discontinued Reason: Doctor's Order 1 inh inhalation DAILY 30 days 60 ea 11RF J45.909 - Unspecified asthma, uncomplicated umeclidinium 62.5 mcg/actuation (Incruse Ellipta) Discontinued Reason: Doctor's Order 1 inh inhalation DAILY 30 days 30 ea 11RF J45.909 - Unspecified asthma, uncomplicated Coding Level of Care Code Est Pt Level 4 (06268) Diagnoses Severe persistent asthma without complication J45.50 Asthma complication type: uncomplicated Asthma persistence: persistent Asthma severity: severe Chronic allergic rhinitis J30.9 GEORGIE (obstructive sleep apnea) G47.33 Gastroesophageal reflux disease without esophagitis K21.9 Esophagitis presence: without esophagitis Time Spent (min) 16
[2023-07-30 10:34] VITALS: PULSE 80; O2SAT 97; BMI 39.4
== END 2023-07-30 10:55 | disposition home or self-care (01) ==
PROVIDERS: Referring Provider Registered Nurse; Visit Provider Hospitalist
DX: J45.50 Severe persistent asthma, uncomplicated (principal); J30.9 Allergic rhinitis, unspecified; G47.33 Obstructive sleep apnea (adult) (pediatric); K21.9 Gastro-esophageal reflux disease without esophagitis
CPT/HCPCS: 99214

== ENCOUNTER → 2023-07-30 10:26 | Outpatient (BNVA) | payer MEDICAID, SELFPAY | PROVIDERS: Visit Provider Hospitalist | DX: J45.50 Severe persistent asthma, uncomplicated (principal); J30.9 Allergic rhinitis, unspecified; G47.33 Obstructive sleep apnea (adult) (pediatric); K21.9 Gastro-esophageal reflux disease without esophagitis; Z79.899 Other long term (current) drug therapy; Z87.891 Personal history of nicotine dependence | CPT/HCPCS: 99212 ==

== ENCOUNTER 2023-10-01 09:29 | Outpatient (AMB) | payer MEDICAID, SELFPAY ==
[2023-10-01 09:29] VITALS: BMI 40.4
--- NOTE | 2023-10-01 09:29 | A.OFFVIS_ITS ---
Vital Signs 10/01/23 09:29 Height 4 ft 11 in Weight 200 lb BMI 40.4 Intake Visit Reasons: COVID+ [employer] Required: No Allergies Penicillins Allergy (Severe, Verified 10/01/23 09:30) hives, swelling pollen extracts [POLLEN] Allergy (Severe, Verified 10/01/23 09:30) ITCHING peanut [PEANUT] Allergy (Intermediate, Verified 10/01/23 09:30) RASH plum Allergy (Severe, Uncoded 10/01/23 09:30) swelling HPI Comments Details: The patient is a 63-year-old woman with known severe persistent asthma follow closely by Allergy and also pulmonary. She is currently on Xolair and is also on Breo and Atrovent HFA. She has felt that her respiratory symptoms have improved on this medication. However, lately the last week or 2 she is having more chest congestion and wheezing. She is having to use her nebulizer up to 4 times a day. She is trying to expectorate phlegm and is usually clear in color. Denies any fevers or chills or night sweats or body aches. She also complains of nasal congestion and is feels like she is having better allergies at this time. She has tried multiple nasal spray with a no significant improvement. 04/06/2022 the patient is here for a pulmonary follow-up visit. She has been having hard time with her breathing. Complains of chest tightness and wheezing. Moderate severity. Her inhalers have not been completely effective. She also complains of chest congestion and cough. She is bringing up yellowish phlegm. Difficult to expectorate. In addition to that she is having hard time with her CPAP. The CPAP is shutting off in the middle the night and she has a hard time because of the shortness of breath. She will have Robb go to her home to address the issues with her machine. If the machine is broken beyond repair she is going to [place] replacement. She will call us once after she has evaluation to make sure that we address any issues with her CPAP. In the meantime the CPAP therapy has been very affecting beneficial when he was working properly. I did adjust the pressures a little bit I increased her maximum pressure to 16. She is using nasal pillows. I did talk about considering getting a chinstrap in order to minimize air leakage in case that is causing the machine to shot up by itself. 06/01/2022 the patient is here for a pulmonary follow-up visit. She was doing well until couple days ago when she started developing sinus pain pressure and postnasal drip. She feels congested. She feels like this will go down to her lungs and resulting worsening respiratory complaints. She read treated now. The patient has been using her respiratory medications although she does not have all them available. I will make sure to sent to the pharmacy. She did bring her new CPAP. The CPAP therapy continues to be affecting beneficial. She does use it more than 4 hours. Last night she only used it for 3 hours because she fell asleep washing TV. She is aware that if she does not use it enough she with on going to be able to get supplies. The patient is using nasal pillows. They appear to be affected with the go ahead and send [facility] a prescription for renewal of her supplies at this time. She continues on the Xolair injections. The been affecting beneficial. 11/26/2022 the patient is here for pulmonary follow-up visit. The patient has not been feeling well for couple days. She did tested negative for COVID yesterday. Started having flu-like symptoms. Sore throat and also cough. She is having some chest congestion. She is using her nebulizer more often. Prior to this illness she was doing just fine her current respiratory regimen. She continues on the Xolair injections. The patient also continues her CPAP therapy she does use it more than 4 hours a night. She does get supplies from [facility]. We had sent a prescription back in May but she has yet to receive them. Therefore, will send another script for her to continue getting her supplies to her [employer]. Will go ahead and swab her for flu RSV and COVID right now. If the patient has abnormal result I will let her know. Otherwise she will start a prednisone taper and some antibiotics to treat her for a respiratory infectious process. 04/05/2023 the patient is here for sick visit. She has been sick now for about 4 days. She started developing fevers and chills. Also nasal congestion and sore throat. The patient was noticing increasing chest tightness shortness of breath and wheezing. Therefore she called for an appointment. The patient did have a nasal swab in the office. Was negative for RSV, flu and COVID-19. The patient does have significant wheezing on examination. She is also coughing with some chest congestion. Mucus is yellowish in color. The patient has been using her respiratory therapy. She needs an additional nebulized therapy. She continues use Mucinex as needed for the chest congestion. This time will going to go ahead and send the additional medications to the pharmacy to treat an asthma exacerbation due to a viral syndrome. She is also struggling getting supplies from her [employer] company, [employer]. We did call them it seems that everything is up today. However she needs to make an appointment to be able to order picker/assembler her equipment. She is using the P 10 mask the seems to be the most comfortable for her. 07/30/2023 the patient is here for pulmonary follow-up visit. Overall she is doing well. The patient has been taking the Xolair once a month and seems to be more effective for her she continues on respiratory inhalers. Some mixup with the inhalers. She was supposed to be on Trelegy but only taking Incruse. Therefore explained to her the importance of being on the Trelegy or adding the Breo to her Incruse if is not covered. She will call the office if she can go on Trelegy. She is having issues with back pain and muscle pain. She is waiting for if physical therapy evaluation. In the meantime the patient continues with respiratory therapy with good effect. Seems like her new nasal sprays that working more effectively and the patient has been able to tolerate CPAP. CPAP therapy continues to be affecting beneficial. Otherwise she is without any other complaints. Will follow-up in 4-6 months. 10/01/2023 this is a telehealth visit. The patient called yesterday about testing positive for COVID. She has been having worsening cough chest congestion wheezing. She has been using her nebulizer every 6 hours. Sometimes every 4 hours. She still having hard time. She did order picker/assembler the Paxlovid she did start yesterday. Seems to be tolerating it. In the meantime she is having a productive cough with yellow phlegm. She is going to monitor that. If the chest congestion and phlegm is not improving in the next 24 hours she can go ahead and start doxycycline. I will also give her low-dose prednisone that she can also start to make sure does not interact too much with the Paxlovid. If her condition worsens more than that she can always call the office but she would need to be seen in the ER. I am hopeful though that in the next 24:48 ho urs she should start feeling better on the Paxlovid. [facility] Medical History Personal history of nicotine dependence Morbid obesity GEORGIE (obstructive sleep apnea) (~2007) Tubular adenoma of colon (~2014) Chronic allergic rhinitis Bronchitis Asthma Surgical History History of endometrial ablation History of colonoscopy History of section Family History Father No problems noted. 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 Review of Systems Const Reports body aches, Reports difficulty sleeping, Reports fatigue and Reports fever(s) Eyes Reports irritation and Reports itchy eyes ENT Denies change in voice, Denies lip swelling, Reports nasal congestion, Reports nasal discharge and Reports post nasal drip Card Denies chest pain, Reports leg edema and Reports dyspnea on exertion Resp Reports change in phlegm color, Reports chest congestion, Reports cough, Reports dyspnea on exertion, Denies stridor and Reports wheezing GI Denies abdominal pain Musc Denies no additional complaints Neuro Denies Neuro-related abnormal movements Psych Denies no additional complaints Endo Reports fatigue Dalton/Lymph Denies easy bleeding and Denies lymphadenopathy Aller/Immun Reports itchy eyes, Denies lip swelling and Reports wheezing Physical Exam Vital Signs: BMI result Body Mass Index 40.4 Const General: alert Orientation/consciousness: patient oriented x3 Resp Effort & Inspection: able to speak in complete sentences Neuro General: patient oriented x3 Telehealth Telehealth Telehealth Platform: Telephone Location of provider rendering services: practice address Location of patient: address on file Patient Identification confirmed using: Name, : Yes Telehealth method: voice only Patient verbally consented to treatment: Yes Patient verbally consented to billing insurance company: Yes Patient informed of any privacy concerns related to visit: Yes Assessment & Plan Assessment & Plan (1) COVID-19: Code(s): U07.1 - COVID-19 Category: Medical (2) Asthma: Code(s): J45.909 - Unspecified asthma, uncomplicated Category: Medical Qualifiers: Asthma severity: severe Asthma persistence: persistent Asthma complication type: with acute exacerbation Qualified Code(s): J45.51 - Severe persistent asthma with (acute) exacerbation (3) Chronic allergic rhinitis: Code(s): J30.9 - Allergic rhinitis, unspecified Category: Medical (4) GEORGIE (obstructive sleep apnea): Onset Date: ~2007 Code(s): G47.33 - Obstructive sleep apnea (adult) (pediatric) Category: Medical (5) GERD (gastroesophageal reflux disease): Code(s): K21.9 - Gastro-esophageal reflux disease without esophagitis Category: Medical Qualifiers: Esophagitis presence: without esophagitis Qualified Code(s): K21.9 - Gastro-esophageal reflux disease without esophagitis Plan continue PAxlovid start Doxycycline if no better in 24-48 hours start prednisone if no better in 24-48 hours Short-acting beta agonist as needed Trelegy inhaler 200 mcg daily Epi pen as needed start eye drops Qnasl Astelin nasal spray Antihistamines Continue Xolair twice a month continue CPAP , needs supplies weight management Lung cancer screening program Follow-up in 3-4 months Medications: New doxycycline hyclate 100 mg PO BID 20 caps 0RF 10 days prednisone PO daily; Take 3 tabs daily x 3 days, then 2 tabs daily x 3 days, then 1 tab x 3 days 18 tabs 0RF 9 days Refilled albuterol sulfate 2.5 mg (3 mL) inhalation Q6H PRN 180 mL 11RF for wheezing 30 days Coding Level of Care Code Tele Est Pt Level 4 (11474) Diagnoses COVID-19 U07.1 Severe persistent asthma with acute exacerbation J45.51 Asthma severity: severe Asthma persistence: persistent Asthma complication type: with acute exacerbation Chronic allergic rhinitis J30.9 GEORGIE (obstructive sleep apnea) G47.33 Gastroesophageal reflux disease without esophagitis K21.9 Esophagitis presence: without esophagitis Time Spent (min) 15
== END 2023-10-01 11:02 | disposition home or self-care (01) ==
LOC: HO.HPS 09:29
PROVIDERS: Visit Provider Hospitalist
DX: U07.1 COVID-19 (principal); J45.51 Severe persistent asthma with (acute) exacerbation; G47.33 Obstructive sleep apnea (adult) (pediatric); K21.9 Gastro-esophageal reflux disease without esophagitis
CPT/HCPCS: 99214

== ENCOUNTER → 2023-10-01 09:29 | Outpatient (BNVA) | payer MEDICAID, SELFPAY | PROVIDERS: Visit Provider Hospitalist ==

== ENCOUNTER 2023-10-30 08:46 | Inpatient (IN) | payer MEDICAID, SELFPAY ==
[2023-10-30] VITALS (13 sets, daily range): BP systolic 91–139; BP diastolic 35–77; PULSE 66–84; RESP 14–22; TEMP 36.3–38.1; O2SAT 95–100; BMI 45.5; BMI 46.4
--- NOTE | ~2023-10-30 | CT_ITS ---
EXAMINATION: CT ABDOMEN AND PELVIS WITH CONTRAST CLINICAL INFORMATION: Abdominal pain. Right upper quadrant and epigastric pain COMPARISON: Ultrasound abdomen 09/04/2022 TECHNIQUE: Multidetector volumetric images were obtained from the superior aspect of the liver through the pubic symphysis following administration 85 mL of Omnipaque 350 intravenous contrast. Sagittal and coronal reformatted images were obtained on the technologist's workstation. Oral contrast: No This CT examination was performed using dose optimization techniques as appropriate, variously including the following: *Automated exposure control *Adjustment of mA and/or kV according to patient size (this includes techniques or standardized protocols for targeted exams where dose is matched to indication/reason for exam; i.e. extremities or head) *Use of iterative reconstruction technique DLP: 1542 mGy-cm FINDINGS: Evaluation is slightly limited due to motion. LUNG BASES: Patchy groundglass opacities within the right middle and lower lobes. Ill-defined subpleural opacity in the lingula likely relating to atelectasis. No pleural effusions. LIVER, GALLBLADDER, AND BILIARY TREE: The liver is normal in size and shape with decreased attenuation likely correlating to hepatic steatosis on prior ultrasound. No focal hepatic lesion or biliary ductal dilatation is present. Multiple calcified gallstones. There is no gallbladder wall thickening or pericholecystic inflammatory changes. Mild prominence of the central left intrahepatic bile ducts. The common bile duct is normal in caliber. PANCREAS: Unremarkable. SPLEEN: Unremarkable. ADRENAL GLANDS: Unremarkable. KIDNEYS AND URETERS: The kidneys are normal in size, shape, and attenuation. No hydronephrosis, hydroureter, or calculi seen. No perinephric stranding. BLADDER: Unremarkable. GASTROINTESTINAL TRACT: Stomach and small bowel are nondilated. The descending and sigmoid colon are decompressed limiting evaluation. Mild wall thickening in the mid transverse colon may be exaggerated by under distended state. No surrounding pericolonic inflammatory changes. The appendix is visualized and is unremarkable. ABDOMINAL WALL: Tiny fat-containing umbilical hernia. LYMPH NODES: No abdominopelvic lymphadenopathy. VASCULAR: The abdominal aorta is normal in caliber with mild atherosclerosis. PELVIC VISCERA: Unremarkable. OSSEOUS STRUCTURES: No acute or suspicious osseous abnormality. Minimal degenerative changes visualized spine. CT/CT abdomen pelvis w IV con IMPRESSION: 1. Cholelithiasis without CT evidence of acute cholecystitis. Mild prominence of the central left intrahepatic bile ducts. The common bile duct is normal in caliber. 2. Hepatic steatosis. 3. Patchy groundglass opacities within the right middle and lower lobes which may be infectious/inflammatory in etiology. 4. Mild wall thickening in the mid transverse colon may be exaggerated by under distended state. No surrounding pericolonic inflammatory changes. Electronically signed by: Luis Nino MD 10/30/2023 01:16 PM EDT
--- NOTE | ~2023-10-30 | CT_ITS ---
EXAMINATION: CT HEAD WITHOUT CONTRAST CLINICAL INFORMATION: Syncope COMPARISON: CT head 07/29/2020 TECHNIQUE: Contiguous axial imaging was performed from the skull base to vertex without intravenous administration of contrast. This CT examination was performed using dose optimization techniques as appropriate, variously including the following: *Automated exposure control *Adjustment of mA and/or kV according to patient size (this includes techniques or standardized protocols for targeted exams where dose is matched to indication/reason for exam; i.e. extremities or head) *Use of iterative reconstruction technique DLP: 593 mGy-cm FINDINGS: There is no evidence of acute intracranial hemorrhage or edematous territorial infarction. The vaughn-white matter differentiation appears preserved. The ventricles and cortical sulci are proportional without significant volume loss. No significant chronic microangiopathy. There is no mass effect or midline shift. No acute extra-axial collection. No acute osseous or soft tissue abnormality. The included paranasal sinuses and mastoids are well-aerated. CT/CT head/brain wo IV con IMPRESSION: No acute intracranial pathology. Electronically signed by: Luis Nino MD 10/30/2023 01:33 PM EDT
--- NOTE | ~2023-10-30 | XR_ITS ---
EXAMINATION: XR CHEST CLINICAL INFORMATION: Fall. Chest trauma. Shortness of breath. COMPARISON: 06/19/2021 TECHNIQUE: Frontal view of the chest was obtained. FINDINGS: EKG leads overlie the chest. Normal lung volumes. Mild bibasilar atelectasis is suspected. No consolidation, pneumothorax, or pleural effusion. No acute osseous findings. XR/XR chest 1V IMPRESSION: Mild bibasilar atelectasis. No acute pulmonary findings. Electronically signed by: Nilo Montalvo MD 10/30/2023 04:01 PM EDT
--- NOTE | 2023-10-30 08:55 | ECG_ITS ---
Test Reason : SYNCOPE Blood Pressure : / mmHG Vent. Rate : 077 BPM Atrial Rate : 077 BPM P-R Int : 130 ms QRS Dur : 070 ms QT Int : 370 ms P-R-T Axes : 021 040 034 degrees QTc Int : 418 ms Normal sinus rhythm Normal ECG When compared with ECG of 17-JUN-2023 15:13, No significant change was found Referred By: Jose Angel Sampson Electronically Signed By:GRAYSON MONSALVE
--- NOTE | 2023-10-30 09:40 | ED_ITS ---
HPI - Syncope General Chief Complaint: Syncope Stated Complaint: SYNCOPAL EPISODE,NAUSEA,DIARRHEA PER EMS Time Seen by Provider: 10/30/23 08:54 Source: patient Mode of arrival: ambulatory Limitations: no limitations History of Present Illness ED Provider: Adrián VAN HPI narrative: Is a 63-year-old female history of asthma, obesity, [place]IE, GERD, nonalcoholic fatty liver disease, irritable bowel syndrome, tubular adenoma of colon presenting to the emergency department with syncopal episode prior to arrival, patient reports that she got up felt dizzy, syncopized, was caught by her daughter so she did not hit her head or lose consciousness, she bit her lip, no urinary or bowel incontinence. No history of epilepsy or seizures. Patient reports she feels unwell. She is having epigastric abdominal discomfort and just feeling overall unwell with some associated nausea. Prior to today she was feeling fine. She denies chest pain, shortness of breath, headache, vision changes, dizziness, weakness, fevers, chills. She is no longer feeling dizzy. NIHSS 0 Related Data Home Medications ?Medication ?Instructions ?Recorded ?Confirmed ezetimibe 10 mg tablet (Zetia) 10 mg PO DAILY 05/26/21 09/18/21 clonazepam 0.5 mg tablet 0.5 mg PO BEDTIME 10/17/21 hydroxyzine HCl 25 mg tablet 25 - 50 mg PO QID PRN anxiety 10/17/21 triamcinolone acetonide 55 mcg 2 spray intranasal DAILY 10/17/21 nasal spray aerosol nebulizers 11/28/21 CPAP (CPAP Machine/Device) 04/06/22 duloxetine 30 mg capsule,delayed 30 mg PO 06/27/22 release omega-3 300 mg-dha 120 mg-epa 180 1 cap PO QAM 06/27/22 mg-fish oil 1,000 mg capsule metoprolol succinate 25 mg 50 mg PO BID 05/27/23 tablet,extended release 24 hr Previous Rx's ?Medication ?Instructions ?Recorded omalizumab 150 mg/mL subcutaneous 150 mg subcut Q2W 4 weeks #2 mL 10/18/22 syringe (Xolair) ipratropium bromide 17 2 puff PO Q8H #12.9 grams 11/05/22 mcg/actuation HFA aerosol inhaler (Atrovent HFA) lidocaine 5 % topical patch 1 patch topical DAILY #15 ea 11/12/22 (Lidoderm) levocetirizine 5 mg tablet 5 mg PO DAILY #30 tabs 04/05/23 azelastine 137 mcg-fluticasone 50 1 spray intranasal BID #23 grams 04/18/23 mcg/spray nasal spray (Dymista) pqsrcy-vuuxjzug-xxbdckt 2 cap PO BID #120 caps 05/22/23 36,000-114,000-180,000 unit capsule,delay rel (Creon) sucralfate 1 gram tablet (Carafate) 2 g (2 x 1 gram) PO DAILY #60 tabs 05/22/23 azelastine 137 mcg (0.1 %) nasal 2 spray intranasal BID 30 days #30 05/27/23 spray mL beclomethasone dipropionate 80 2 spray intranasal DAILY #10.6 05/27/23 mcg/actuation nasal HFA inhaler grams (QNASL) furosemide 20 mg tablet (Lasix) 20 mg PO DAILY 7 days #7 tabs 05/27/23 cyrczgex-ggusgzasu-krbwocrg 3.5 1 drp ophthalmic (eye) Q12H 10 05/27/23 mg/mL-10,000 unit/mL-0.1% eye drops days #5 mL mometasone 50 mcg/actuation nasal 2 spray intranasal DAILY #17 grams 06/07/23 spray (Nasonex 24hr Allergy) cyclobenzaprine 10 mg tablet 10 mg PO TID PRN muscle spasm #9 06/17/23 tabs pantoprazole 40 mg tablet,delayed 40 mg PO BID #60 tabs 07/09/23 release epinephrine 0.3 mg/0.3 mL 0.3 mg (0.3 mL) IM Q10M PRN 07/30/23 injection, auto-injector (EpiPen anaphylaxis 30 days #2 ea 2-Rell) fluticasone fur. 200 mcg-umeclid 1 inh inhalation DAILY 30 days #60 07/30/23 62.5 mcg-vilant 25 mcg ea inhalat.powder (Trelegy Ellipta) levalbuterol tartrate 45 2 puff PO Q6H PRN for wheezing #15 07/30/23 mcg/actuation aerosol inhaler grams tobramycin 0.3 %-dexamethasone 0.1 2 drp ophthalmic (eye) QID 10 days 07/30/23 % eye drops,suspension #10 mL albuterol sulfate 90 mcg/actuation 2 puff PO Q6H PRN for wheezing #18 09/09/23 aerosol inhaler (Ventolin HFA) grams nirmatrelvir 300 mg (150 mg See Rx Instructions PO .COMPLEX 5 09/30/23 x2)-ritonavir 100 mg tablet,dose days #30 ea pack (Paxlovid) albuterol sulfate 2.5 mg/3 mL 2.5 mg (3 mL) inhalation Q6H PRN 10/01/23 (0.083 %) solution for nebulization for wheezing 30 days #180 mL doxycycline hyclate 100 mg capsule 100 mg PO BID 10 days #20 caps 10/01/23 prednisone 10 mg tablet See Rx Instructions PO DAILY 9 10/01/23 days #18 tabs Allergies Allergy/AdvReac Type Severity Reaction Status Date / Time Penicillins Allergy Severe hives, Verified 10/30/23 09:02 swelling pollen extracts [POLLEN] Allergy Severe ITCHING Verified 10/01/23 09:30 peanut [PEANUT] Allergy Intermediate RASH Verified 10/01/23 09:30 plum Allergy Severe swelling Uncoded 10/01/23 09:30 Review of Systems 2 Review of Systems: Yes all other systems are reviewed and are negative PMFSH Past Medical History Attestation statement: The following information was validated with the patient. Source: old records reviewed and nursing notes reviewed Medical History Personal history of nicotine dependence Morbid obesity GEORGIE (obstructive sleep apnea) (~2007) Tubular adenoma of colon (~2014) Chronic allergic rhinitis Bronchitis Asthma Surgical History History of endometrial ablation History of colonoscopy History of section Family History Family History Father No problems noted. Mother Family history of cancer Brother Lung cancer, Onset Age: 40 Maternal Aunt Lymphoma Family/Other Breast cancer Social History Social History Household Members: Spouse and Children Alcohol intake: current Alcohol intake frequency: does not drink Patient Tobacco Use Status: Former Tobacco user Tobacco use type: Cigarette Years Smoked: (onset 22yo, 1ppd x 39yrs, 35PYH - quit 2021) Smoked in Last 30 Days: No Use of substances other than those prescribed or required for medical reasons: No Advance Directives: No Advance Directives Information Provided: Yes Current occupational status: disabled 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 Oriented X3.? No acute distress.? Head: Normocephalic, atraumatic, no step-offs or deformities Eyes: Pupils equal, round and reactive to light.? Neck: Normal inspection.? Neck supple.? CVS: Normal heart rate and rhythm.? Pulses normal.? Respiratory: No respiratory distress.? Breath sounds normal.? Abdomen: Soft and nontender.? Skin: Skin warm and dry.? Normal skin color.? Normal skin turgor.? Extremities: No lower extremity edema.? No calf ttp. 5/5 strength to bilateral upper and lower extremities Neuro: Oriented X 3.? No motor deficit.? No sensory deficit. CN 2-12 intact Course Reevaluation(s) Reevaluation #1: CBC with leukocytosis and left shift. Blood cultures, lactic acid ordered and pending. Will cover with empiric ceftriaxone at this time. Chemistry with no acute electrolyte abnormalities needing intervention. Troponin negative, EKG nonischemic. Normal CPK. Patient's D-dimer age adjusted is negative. Please review note below. Viral testing pending. CT abdomen and pelvis & head pending. Time: 11:02 Reevaluation #2: Lactic normal. Blood cultures pending. Patient's initial orthostatic vitals negative when patient then sat up in bed she had a low blood pressure reading, 98/35. IV fluids initiated. Time: 14:38 Reevaluation #3: No acute intracranial pathology. CT abdomen and pelvis with cholelithiasis with no acute signs of cholecystitis. Patchy ground-glass opacities right middle lobe and lower lobe question early infection. Patient covered with antibiotics. Plan at this time hospital admission Time: 14:41 Medications Administered Generic Name Dose Route Start Last Admin Trade Name Freq PRN Reason Stop Dose Admin Sodium Chloride 1,000 mls @ 999 mls/hr 10/30/23 14:15 10/30/23 14:16 Ns IV 10/30/23 15:15 999 mls/hr .Q1H1M LUCIANA Administration Discontinued Medications Generic Name Dose Route Start Last Admin Trade Name Freq PRN Reason Stop Dose Admin Ceftriaxone Sodium 1 gm/ 50 mls @ 100 mls/hr 10/30/23 10:04 10/30/23 11:47 Sodium Chloride IV 10/30/23 10:33 Infused ONCE ONE Infusion Iohexol 100 ml 10/30/23 10:51 10/30/23 10:51 Iohexol 350 Mg/Ml 100 Ml Infus..Btl IV 10/30/23 10:52 85 ml ONCE ONE Administration Morphine Sulfate 4 mg 10/30/23 11:03 10/30/23 11:14 Morphine Sulfate 4 Mg/Ml Cartridge IVPUSH 10/30/23 11:04 4 mg ONCE ONE Administration Protocol Medical Decision Making Medical Decision Making [facility] Narrative: 1007 63-year-old female presents status post syncopal episode that occurred prior to arrival. No history of this in the past. [place] dizzy before hand however now feeling fine in terms of dizziness just having subsequent abdominal discomfort and nausea. Physical examination with slight epigastric discomfort. Neurological assessment nonfocal, cerebellar intact. NIH stroke scale 0 History and physical exam concerning for syncope with collapse, also concerned for possible orthostatic hypotension, metabolic derangements. Will rule out intra-abdominal etiologies. Unlikely that this is abdominal aortic aneurysm, dissection, acute respiratory distress, ACS, PE. Plan labs, imaging, urine Differential Diagnosis Differential Diagnoses: The differential diagnosis associated with the presentation includes History and physical exam concerning for syncope with collapse, also concerned for possible orthostatic hypotension, metabolic derangements. Will rule out intra-abdominal etiologies. Unlikely that this is abdominal aortic aneurysm, dissection, acute respiratory distress, ACS, PE. Admission/Observation Consideration of admission/observation: Escalation of care including admission/observation considered Possible Lab Data [facility] Lab Attestation statement: I reviewed the patient's lab results. 10/30/23 09:37 10/30/23 09:37 Labs: Lab Results 10/30/23 10/30/23 10/30/23 Range/Units 09:37 10:30 13:10 WBC 16.3 H (4.8-10.8) X10*3/uL RBC 4.52 (4.20-5.50) X10*6/uL Hgb 13.0 (12.0-16.0) g/dl Hct 39.9 (37.0-47.0) % MCV 88.3 (80.0-98.0) fL MCH 28.8 (27.0-33.0) pg MCHC 32.6 (31.0-35.0) g/dl RDW 14.4 (11.0-16.0) % Plt Count 254 (160-400) X10*3/uL MPV 10.7 (9.4-12.3) fL Immature Gran % (Auto) 0.6 H (0.0-0.4) % Neut % (Auto) 91.0 H (45-73) % Lymph % (Auto) 5.5 L (20-40) % Day % (Auto) 2.0 (2-11) % Eos % (Auto) 0.4 (0-4) % Baso % (Auto) 0.5 (0-2) % Lymph # (Auto) 0.9 L (1.2-4.9) X10*3/uL Day # (Auto) 0.3 (0.1-1.2) X10*3/uL Eos # (Auto) 0.1 (0.0-0.4) X10*3/uL Baso # (Auto) 0.1 (0.0-0.2) X10*3/uL Abs Immat Gran (auto) 0.09 H (0.00-0.03) X10*3/uL Absolute Neuts (auto) 14.8 H (2.0-8.3) x10*3/uL Absolute Nucleated RBC 0.000 (0.0-0.012) X10*3/uL Nucleated RBC % (auto) 0.0 (0.0-0.2) /100WBC Smear Tech's Comments VERIFIED PT 10.5 L (11.1-13.3) SEC INR 0.9 (0.9-1.1) D-Dimer High Sensitivty 174 NG/ML Sodium 141 (135-145) mmol/L Potassium 3.8 (3.3-5.1) mmol/L Chloride 110 H (96-108) mmol/L Carbon Dioxide 22 (22-29) mmol/L Anion Gap 13 (12-20) BUN 11 (9-16) mg/dL Creatinine 0.77 (0.5-1.4) mg/dL Estim Creat Clear Calc 80.8 Estimated GFR > 60 Random Glucose 112 (60-115) mg/dL Lactic Acid 2.0 (0.5-2.0) mmol/L Calcium 8.9 (8.4-10.2) mg/dL Magnesium 2.1 (1.6-2.6) mg/dL Total Bilirubin 0.5 (0.0-1.0) mg/dL AST 21 (5-31) U/L ALT 19 (0-31) U/L Alkaline Phosphatase 76 (39-117) U/L Total Creatine Kinase 94 (26-140) U/L Troponin I High Sens < 2.7 (<3.5-17.0) ng/L B-Natriuretic Peptide 62 (<100) pg/mL Total Protein 7.0 (6.5-8.0) g/dL Albumin 3.6 (3.5-5.0) g/dL Urine Color Yellow Urine Appearance Clear Urine pH 6.0 (5.0-9.0) Ur Specific [place] >= 1.030 H (1.005-1.025) Urine Protein Trace (Neg-Trace) mg/dL Urine Glucose (UA) Negative (Negative) mg/dL Urine Ketones Negative (Negative) mg/dL Urine Blood Negative (Negative) Urine Nitrite Negative (Negative) Ur Leukocyte Esterase Negative (Negative) Influenza Type A (PCR) NEGATIVE (Negative) Influenza Type B (PCR) NEGATIVE (Negative) RSV RNA Qual (PCR) NEGATIVE (Negative) SARS-CoV-2 RNA (RT-PCR) NEGATIVE (Negative) Independent Interpretation I performed an independent interpretation of an: EKG (Vent. Rate : 077 BPM Atrial Rate : 077 BPM P-R Int : 130 ms QRS Dur : 070 ms QT Int : 370 ms P-R-T Axes : 021 040 034 degrees QTc Int : 418 ms Normal sinus rhythm Normal ECG When compared with ECG of 17-JUN-2023 15:13, No significant change was found) and CT Scan Radiology Impression Discussion of test interpretation with radiology: I have reviewed the radiologist's reading. Independent Historian Clinical information obtained from an independent historian. History obtained from or confirmed by: Spouse External Record Review External record reviewed: Inpatient record, Office record, Outpatient record, Prior outpatient labs, Prior outpatient radiology, Primary care record and Outside ED record Chronic Conditions Patient?s care impacted by: Hypertension and Other (obesitym asthma, GErD, NAFLD ) Critical Care Time Critical Care Time Critical Care Time: Yes Total Critical Care Time: 35 Attestation: I attest to this time spent taking care of the patient, obtaining history, physical, reviewing labs, imaging, treatment of patients condition +/- specialist/hospitalist consult Discharge Plan Discharge Clinical Impression: Syncope, Pneumonia, Hypotension Patient Disposition: Admitted As Inpatient Prescriptions: No Action Xolair 150 mg/mL syringe 150 mg subcut Q2W 28 Days Qty: 2 11RF Atrovent HFA 17 mcg/actuation HFA aerosol inhaler 2 puff PO Q8H Qty: 12.9 11RF azelastine-fluticasone [Dymista] 137-50 mcg/spray spray,non-aerosol 1 spray intranasal BID Qty: 23 11RF Rx Instructions: administer into each nostril mometasone [Nasonex 24hr Allergy] 50 mcg/actuation spray,non-aerosol 2 spray intranasal DAILY Qty: 17 12RF Rx Instructions: administer into each nostril pantoprazole 40 mg tablet,delayed release (DR/EC) 40 mg PO BID Qty: 60 6RF albuterol sulfate [Ventolin HFA] 90 mcg/actuation HFA aerosol inhaler 2 puff PO Q6H PRN (Reason: for wheezing) Qty: 18 9RF Paxlovid 300 mg (150 mg x 2)-100 mg tablets,dose pack See Rx Instructions PO .COMPLEX 5 Days Qty: 30 0RF Rx Instructions: take TWO 150 mg tablets of nirmatrelvir with ONE 100 mg tablet of ritonavir twice daily for 5 days PO cyclobenzaprine 10 mg tablet 10 mg PO TID PRN (Reason: muscle spasm) Qty: 9 0RF lidocaine [Lidoderm] 5 % adhesive patch,medicated 1 patch topical DAILY Qty: 15 0RF Rx Instructions: leave on most painful area for up to 12 hrs metoprolol succinate 25 mg tablet extended release 24 hr 50 mg PO BID clonazepam 0.5 mg tablet 0.5 mg PO BEDTIME ezetimibe [Zetia] 10 mg tablet 10 mg PO DAILY (DME) CPAP Machine/Device Device See Rx Instructions .ROUTE Rx Instructions: As directed hydroxyzine HCl 25 mg tablet 25 - 50 mg PO QID PRN (Reason: anxiety) triamcinolone acetonide 55 mcg aerosol,spray 2 spray intranasal DAILY (DME) nebulizers [facility] See Rx Instructions .ROUTE Rx Instructions: As directed duloxetine 30 mg capsule,delayed release(DR/EC) 30 mg PO omega 9-slv-ozi-fish oil 300 mg (120 mg- 180mg)-1,000 mg capsule 1 cap PO QAM neomycin-polymyxin B-dexameth 3.5mg/mL-10,000 unit/mL-0.1 % drops,suspension 1 drp ophthalmic (eye) Q12H 10 Days Qty: 5 0RF azelastine 137 mcg (0.1 %) aerosol,spray 2 spray intranasal BID 30 Days Qty: 30 11RF Rx Instructions: administer into each nostril QNASL 80 mcg/actuation HFA aerosol inhaler 2 spray intranasal DAILY Qty: 10.6 0RF Rx Instructions: administer into one nostril furosemide [Lasix] 20 mg tablet 20 mg PO DAILY 7 Days Qty: 7 0RF levocetirizine 5 mg tablet 5 mg PO DAILY Qty: 30 11RF Creon 36,000-114,000- 180,000 unit capsule,delayed release(DR/EC) 2 cap PO BID Qty: 120 6RF Rx Instructions: administer with meals and/or snacks sucralfate [Carafate] 1 gram tablet 2 g PO DAILY Qty: 60 3RF Rx Instructions: PLEASE BE SURE TO PACKAGE IT 2 TABS AT THE SAME TIME, NOT TWICE A DAY TO AVOID THIS MEDICATION INTERFERING WITH THE ABSORPTION OF OTHER MEDICINES tobramycin-dexamethasone 0.3-0.1 % drops,suspension 2 drp ophthalmic (eye) QID 10 Days Qty: 10 0RF epinephrine [EpiPen 2-Rell] 0.3 mg/0.3 mL auto-injector 0.3 mg IM Q10M PRN (Reason: anaphylaxis) 30 Days Qty: 2 6RF Rx Instructions: for 2 doses levalbuterol tartrate 45 mcg/actuation HFA aerosol inhaler 2 puff PO Q6H PRN (Reason: for wheezing) Qty: 15 11RF Trelegy Ellipta 200-62.5-25 mcg blister with device 1 inh inhalation DAILY 30 Days Qty: 60 12RF doxycycline hyclate 100 mg capsule 100 mg PO BID 10 Days Qty: 20 0RF albuterol sulfate 2.5 mg /3 mL (0.083 %) solution for nebulization 2.5 mg inhalation Q6H PRN (Reason: for wheezing) 30 Days Qty: 180 11RF prednisone 10 mg tablet See Rx Instructions PO DAILY 9 Days Qty: 18 0RF Rx Instructions: PO daily; Take 3 tabs daily x 3 days, then 2 tabs daily x 3 days, then 1 tab x 3 days Print Language: Welsh
[2023-10-30 09:52] LABS: Basophils Absolute Auto 0.1 X10*3/uL (0.0-0.2); Basophils Percent Auto 0.5 % (0-2); Eosinophils Absolute Auto 0.1 X10*3/uL (0.0-0.4); Eosinophils Percent Auto 0.4 % (0-4); Hematocrit 39.9 % (37.0-47.0); Imm Gran Abs Auto 0.09 X10*3/uL (0.00-0.03); Imm Gran Pct Auto 0.6 % (0.0-0.4); Lymphocytes Absolute Auto 0.9 X10*3/uL (1.2-4.9); Lymphocytes Percent Auto 5.5 % (20-40); MANUAL DIFF FLAG SCAN; Mean Corpuscular HGB Conc 32.6 g/dl (31.0-35.0); Mean Corpuscular Hemoglobin 28.8 pg (27.0-33.0); Mean Corpuscular Volume 88.3 fL (80.0-98.0); Mean Platelet Volume 10.7 fL (9.4-12.3); Monocytes Absolute Auto 0.3 X10*3/uL (0.1-1.2); Neutrophils Absolute Auto 14.8 x10*3/uL (2.0-8.3); Platelet Count 254 X10*3/uL (160-400); Red Blood Count 4.52 X10*6/uL (4.20-5.50); Red Cell Distribution Width 14.4 % (11.0-16.0); SCAN SMEAR FLAG 1; White Blood Count 16.3 X10*3/uL (4.8-10.8)
[2023-10-30 10:02] LABS: B Type Natriuretic Peptide 62 pg/mL (<100)
--- NOTE | 2023-10-30 10:03 | ECG_ITS ---
Test Reason : WEAKNESS Blood Pressure : / mmHG Vent. Rate : 093 BPM Atrial Rate : 093 BPM P-R Int : 118 ms QRS Dur : 070 ms QT Int : 374 ms P-R-T Axes : 020 040 034 degrees QTc Int : 465 ms Normal sinus rhythm Normal ECG When compared with ECG of 30-OCT-2023 09:00, No significant change was found Referred By: Jose Angel Sampson Electronically Signed By:GRAYSON MONSALVE
[2023-10-30 10:04] LABS: Alanine Aminotransferase 19 U/L (0-31); Albumin Level 3.6 g/dL (3.5-5.0); Alkaline Phosphatase 76 U/L (39-117); Anion Gap 13 (12-20); Aspartate Amino Transferase 21 U/L (5-31); Blood Urea Nitrogen 11 mg/dL (9-16); Calcium 8.9 mg/dL (8.4-10.2); Carbon Dioxide 22 mmol/L (22-29); Chloride 110 mmol/L (96-108); Creatinine Clr Calc Pharmacy 80.8; Estimated Glomerular Filt Rate > 60; Glucose Random 112 mg/dL (60-115); Magnesium 2.1 mg/dL (1.6-2.6); Potassium 3.8 mmol/L (3.3-5.1); Sodium 141 mmol/L (135-145)
[2023-10-30 10:05] LABS: Troponin-I High Sensitivity < 2.7 ng/L (<3.5-17.0)
[2023-10-30 10:09] LABS: Bilirubin Total 0.5 mg/dL (0.0-1.0)
[2023-10-30 10:20] LABS: SLIDE REVIEW VERIFIED
[2023-10-30 10:43] LABS: INTERNATIONAL NORM RATIO 0.9 (0.9-1.1); Prothrombin Time 10.5 SEC (11.1-13.3)
[2023-10-30 10:45] LABS: D Dimer High Sensitivity 174 NG/ML
[2023-10-30] MEDS: iohexoL 350 MG/ML 100 ML INFUS..BTL IV (10:51)
[2023-10-30 11:14] LABS: Influenza A PCR NEGATIVE (Negative); Influenza B PCR NEGATIVE (Negative); Resp Syncy Virus RNA Qual PCR NEGATIVE (Negative); SARS COV2 PCR INHOUSE NEGATIVE (Negative)
[2023-10-30] MEDS: cefTRIAXone sodium 1 GM in 0.9 % Sodium Chloride 50 ML IV (11:14)
[2023-10-30] MEDS: Morphine Sulfate 4 MG/ML CARTRIDGE IVPUSH (11:14)
--- NOTE | 2023-10-30 11:48 | PC.NURSE ---
pt reporting shortness of breath, no increased work of breathing/accessory muscle use, spot 94% on RA. Pt reports that she feels like it is difficult to get a full breath in. 2L o2 NC placed for patient comfort
[2023-10-30 13:17] LABS: Appearance Urine Clear; Color Urine Yellow; Glucose Urine UA Negative (Negative); Leukocyte Esterase Urine Negative (Negative); Nitrite Urine Negative (Negative); Specific Gravity - Urine >= 1.030 (1.005-1.025); Urine Blood Negative (Negative); Urine Ketones Negative (Negative); Urine Protein Trace mg/dL (Neg-Trace)
--- NOTE | 2023-10-30 13:28 | PC.NURSE ---
pt ambulated to bathroom with walker and standby assist. steady gait
[2023-10-30] MEDS: 0.9 % Sodium Chloride 1,000 ML 999 ML IV ×2 (14:16→15:17)
--- NOTE | 2023-10-30 14:23 | PC.NURSE ---
pt's blood pressure dropped to 90s/40s.PA notified, fluids ordered. infusing per that order
--- NOTE | 2023-10-30 14:47 | P.HPHOSP_ITS ---
<Statement entered by Edith Leon MD - 11/02/23 14:56> the patient was seen and evaluated with REHAN Prince. I agree with his note, assessment and plan with the following. In summary, A 63 yearts old lady with hx of Asthma, GEORGIE on CPAP, HTN, GERD who presents with syncope at home. she had diarrhea this morning and syncopized leaving the bathroom with no head injury. Found to have pneumonia and hypotension. # Community acquired pneumonia complicated with hypotension and syncope Start ceftriaxone and azithromycin, started 10/30/2023 pending cultures wean O2 as tolerated Keep on Tele IVF monitor BP Rest of evaluations by REHAN note. History of Present Illness Date of Service: 10/30/23 Attending physician on admission: Edith Leon Chief Complaint: Syncopal episode Pt is a 63-year-old female with a PMH significant for HTN, HLD, allergic rhinitis,?severe persistent asthma follows closely with allergy and pulmonology, IBS, GEORGIE on CPAP, and GERD who presents to the ED after syncopal episode at home. Pt reports has been feeling more fatigued with increased cough the past few days. When she awoke this morning was experiencing epigastric stomach pain and nausea. Went to the bathroom and had an episode of diarrhea. Right after patient got up and felt lightheaded, dizzy, and daughter noted her face was pale/white. She was then brought to the sofa by her her and daughter where she then had a moment of unresponsiveness without seizure-like activity. Unclear whether pt fully lost consciousness or not. Denies eating any suspicious foods. 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 Has been eating and drinking normally. She did not fall, no headstrike. Patient denies fever, chills, vomiting. No shortness a breath or difficulty breathing. Denies chest pain or pressure. In the ED initial orthostatics were negatvie but pt had an episode of vomiting followed by near syncope, BP drop to 98/35, and bradycardia into the 40s. Of note, pt's son reports she experienced similar episode many years ago. Pt also reports just finishing up course of prednisone a few days ago. In the ED pt was initially tachypneic at 22 and was soft BP of 98/35. Labs were significant for leukocytosis of 16.3, otherwise grossly unremarkable. No significant electrolyte abnormalities. Renal function baseline. Lactic acid WNL at 2.0. Hepatic function baseline. Troponin negative. BNP WNL. UA negative. Tested negative for flu, RSV CXR pending. CT?of abdomen showing patchy ground-glass opacities within the right middle and lower lobes which may be infectious/inflammatory in etiology. Also showed cholelithiasis without evidence of acute cholecystitis and hepatic steatosis. CTA of head negative for acute intracranial pathology. EKG demonstrated normal sinus rhythm without evidence of significant ST elevations or depressions. Pt was treated with morphine, IVF, and ceftriaxone. Pt will be admitted to the hospital for treatment and further evaluation of syncopal episode in the setting of community acquired pneumonia. Review of Systems 2 Review of Systems: Syncopal episode Lightheadedness Nausea and vomiting Diarrhea Epigastric abd discomfort No chest pain or pressure Denies SOB PMFSH Medical History Personal history of nicotine dependence Morbid obesity GEORGIE (obstructive sleep apnea) (~2007) Tubular adenoma of colon (~2014) Chronic allergic rhinitis Bronchitis Asthma Family History Father No problems noted. Mother Family history of cancer Brother Lung cancer, Onset Age: 40 Maternal Aunt Lymphoma Family/Other Breast cancer Surgical History History of endometrial ablation History of colonoscopy History of section Social History Household Members: Spouse and Children Alcohol intake: current Alcohol intake frequency: does not drink Patient Tobacco Use Status: Former Tobacco user Tobacco use type: Cigarette Years Smoked: (onset 22yo, 1ppd x 39yrs, 35PYH - quit 2021) Smoked in Last 30 Days: No Use of substances other than those prescribed or required for medical reasons: No Advance Directives: No Advance Directives Information Provided: Yes Current occupational status: disabled 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 Meds Allergies Allergy/AdvReac Type Severity Reaction Status Date / Time Penicillins Allergy Severe hives, Verified 10/30/23 09:02 swelling pollen extracts [POLLEN] Allergy Severe ITCHING Verified 10/01/23 09:30 peanut [PEANUT] Allergy Intermediate RASH Verified 10/01/23 09:30 plum Allergy Severe swelling Uncoded 10/01/23 09:30 Active Medications: Current Medications Sodium Chloride (Ns) 1,000 mls @ 999 mls/hr IV .Q1H1M LUCIANA Stop: 10/30/23 15:15 Last Admin: 10/30/23 14:16 Dose: 999 mls/hr Sodium Chloride (Ns) 1,000 mls @ 999 mls/hr IV .Q1H1M LUCIANA Stop: 10/30/23 15:45 Home Medications ?Medication ?Instructions ?Recorded ?Confirmed ?Last Taken ?Type clonazepam 0.5 mg tablet 0.5 mg PO BEDTIME 10/17/21 10/30/23 10/29/23 History hydroxyzine HCl 25 mg tablet 25 mg PO BEDTIME anxiety 10/17/21 10/30/23 10/29/23 History nebulizers 11/28/21 Unknown History CPAP (CPAP Machine/Device) 04/06/22 Unknown History duloxetine 30 mg capsule,delayed 30 mg PO BID 06/27/22 10/30/23 10/29/23 History release omega-3 300 mg-dha 120 mg-epa 180 1 cap PO DAILY 06/27/22 10/30/23 10/29/23 History mg-fish oil 1,000 mg capsule azelastine 137 mcg (0.1 %) nasal 2 spray intranasal BID 10/30/23 10/30/23 10/29/23 History spray clonazepam 0.5 mg tablet 0.5 mg PO DAILY PRN anxiety 10/30/23 10/30/23 Unknown History fluticasone furoate 200 1 ea inhalation DAILY 10/30/23 10/30/23 10/29/23 History mcg-vilanterol 25 mcg/dose inhalation powder (Breo Ellipta) ipratropium bromide 17 2 puff inhalation Q8H 10/30/23 10/30/23 10/29/23 History mcg/actuation HFA aerosol inhaler (Atrovent HFA) lidocaine 5 % topical patch 1 patch topical DAILY PRN Pain 10/30/23 10/30/23 Unknown History (Lidoderm) zpnfxl-kjbtrgsh-hbakmtf 2 cap PO BIDWM 10/30/23 10/30/23 10/29/23 History 36,000-114,000-180,000 unit capsule,delay rel (Creon) metoprolol tartrate 50 mg tablet 50 mg PO BID 10/30/23 10/30/23 10/29/23 History pantoprazole 40 mg tablet,delayed 40 mg PO BID@0630,1630 10/30/23 10/30/23 10/29/23 History release sucralfate 1 gram tablet (Carafate) 2 g PO DAILY@1200 10/30/23 10/30/23 10/29/23 History umeclidinium 62.5 mcg/actuation 1 inh inhalation DAILY 10/30/23 10/30/23 10/29/23 History blister powder for inhalation (Incruse Ellipta) Physical Exam 2 Vital Signs and Narrative: Vital Signs: Last Vital Signs Temp 99.4 F 10/30/23 14:07 Pulse 78 10/30/23 14:07 Resp 14 10/30/23 14:07 BP 98/35 L 10/30/23 14:07 Pulse Ox 99 10/30/23 14:07 O2 Del Method Nasal Cannula 10/30/23 14:07 O2 Flow Rate 2 10/30/23 14:07 BMI result Body Mass Index 45.5 Constitutional: Alert, in no acute distress. Mental Status: Oriented to person, place and time. Eyes: Pupils are equal, round, and reactive to light. Ear, Nose, and Throat: Oropharynx clear, mucous membranes moist. Ears and nose without deformities. Trachea midline. Respiratory: Clear to auscultation bilaterally. No wheezing, rales, or rhonchi. Cardiovascular: S1, S2 regular. No murmurs, rubs, or gallops. Gastrointestinal: Abdomen soft, non-tender, non-distended. Normal bowel sounds. Neurologic: Cranial nerves II-XII are grossly intact bilaterally. No focal neurological deficits. Moves all extremities spontaneously. Skin: Warm, dry. Musculoskeletal: No cyanosis or clubbing. Extremities: No edema. Psychiatric: Normal mood and affect. Results Labs 10/30/23 09:37 10/30/23 09:37 Labs: Laboratory Results - last 24 hr 10/30/23 10/30/23 10/30/23 09:37 10:30 13:10 MCV 88.3 MCH 28.8 MCHC 32.6 RDW 14.4 Plt Count 254 MPV 10.7 Immature Gran % (Auto) 0.6 H Neut % (Auto) 91.0 H Lymph % (Auto) 5.5 L [place] % (Auto) 2.0 Eos % (Auto) 0.4 Baso % (Auto) 0.5 Lymph # (Auto) 0.9 L [place] # (Auto) 0.3 Eos # (Auto) 0.1 Baso # (Auto) 0.1 Abs Immat Gran (auto) 0.09 H Absolute Neuts (auto) 14.8 H Absolute Nucleated RBC 0.000 Nucleated RBC % (auto) 0.0 Smear Tech's Comments VERIFIED PT 10.5 L INR 0.9 D-Dimer High Sensitivty 174 Anion Gap 13 Estim Creat Clear Calc 80.8 Estimated GFR > 60 Random Glucose 112 Lactic Acid 2.0 Calcium 8.9 Magnesium 2.1 Total Bilirubin 0.5 AST 21 ALT 19 Alkaline Phosphatase 76 Total Creatine Kinase 94 Troponin I High Sens < 2.7 B-Natriuretic Peptide 62 Total Protein 7.0 Albumin 3.6 Urine Color Yellow Urine Appearance Clear Urine pH 6.0 Ur Specific [place] >= 1.030 H Urine Protein Trace Urine Glucose (UA) Negative Urine Ketones Negative Urine Blood Negative Urine Nitrite Negative Ur Leukocyte Esterase Negative Influenza Type A (PCR) NEGATIVE Influenza Type B (PCR) NEGATIVE RSV RNA Qual (PCR) NEGATIVE SARS-CoV-2 RNA (RT-PCR) NEGATIVE Imaging Radiologist's Impressions: Impressions Abdomen/Pelvis CT 10/30/23 10:43 IMPRESSION: 1. Cholelithiasis without CT evidence of acute cholecystitis. Mild prominence of the central left intrahepatic bile ducts. The common bile duct is normal in caliber. 2. Hepatic steatosis. 3. Patchy groundglass opacities within the right middle and lower lobes which may be infectious/inflammatory in etiology. 4. Mild wall thickening in the mid transverse colon may be exaggerated by under distended state. No surrounding pericolonic inflammatory changes. Electronically signed by: Luis Nino MD 10/30/2023 01:16 PM EDT RP Head CT 10/30/23 11:10 IMPRESSION: No acute intracranial pathology. Electronically signed by: Luis Nino MD 10/30/2023 01:33 PM EDT RP Assessment and Plan (1) Syncope: Status: Acute (2) Pneumonia: Status: Acute Plan Pt is a 63-year-old female with a PMH significant for HTN, HLD, allergic rhinitis,?severe persistent asthma follows closely with allergy and pulmonology, IBS, GEORGIE on CPAP, and GERD who presents to the ED after syncopal episode at home. Pt will be admitted to the hospital for treatment and further evaluation of syncopal episode in the setting of community acquired pneumonia. Community acquired pneumonia Pt with cough, fatigue, near-syncopal episodes, CT showing possible infiltrates Does not meet sepsis criteria: leukocytosis secondary to prednisone use; lactic acid WNL Was given IVF and started on broad-spectrum antibiotics in the ED Will treat with ceftriaxone and azithromycin, started 10/30/2023 Titrate supplemental O2 >92, wean as tolerated Follow cultures Monitor respiratory status Syncopal episode Most likely vasovagal secondary to diarrhea and vomiting, though cardiac and orthostatic still on differential Patient received IVF in the ED Recheck orthostatics tomorrow Pt received IVF in ED Monitor on telemetry Hypotension BP soft, as low as 91/54 In the setting of above, from dehydration Given IVF in the ED Hold furosemide, metoprolol Monitor BP Question of aspiration Pt with episode of vomiting and near-syncope in the ED Was given Flagyl in the ED Pt without significant increased cough, lungs CTA Hold on additional Flagyl for now Epigastric discomfort, N/V/D Likely secondary to long-standing GERD and IBS Has had significant GI workup in the past Continue PPI, sucralfate, Creon Antiemetics Severe persistent asthma Not in acute exacerbation Continue home inhalers Mood disorder Continue home mood stabilizers Full Code Attending:?Dr. Leon DVT Prophylaxis: Lovenox Pt will require a hospitalization of at least two nights for treatment of?syncopal episode in the setting of community-acquired pneumonia. Patient will require administration of IV antibiotics and close monitoring of vitals including BP. Quality Stroke Does the patient have a stroke diagnosis?: No VTE Prior VTE?: No VTE Risk Level:: Medical - moderate - high VTE Device Contraindication: Treatment Not Indicated VTE Drug Contraindication: N/A - Med Ordered
--- NOTE | 2023-10-30 15:09 | ECG_ITS ---
Test Reason : NEAR SYNCOPE Blood Pressure : / mmHG Vent. Rate : 070 BPM Atrial Rate : 070 BPM P-R Int : 140 ms QRS Dur : 076 ms QT Int : 402 ms P-R-T Axes : 026 025 029 degrees QTc Int : 434 ms Normal sinus rhythm Normal ECG When compared with ECG of 30-OCT-2023 14:57, No significant change was found Referred By: Jose Angel Sampson Electronically Signed By:GRAYSON MONSALVE
[2023-10-30] MEDS: metroNIDAZOLE/NS 500 MG/100 ML PIGGYBACK 100 MG IV (15:43)
[2023-10-30] MEDS: Acetaminophen 325 MG TABLET 975 MG PO (15:43)
--- NOTE | 2023-10-30 15:59 | PHA.MEDREC ---
Addendum entered by Tuyet lLoyd RPh 10/30/23 16:39: Reviewed by [facility] Original Note: Pharmacy Consult ? Medication Reconciliation Pharmacy has completed the medication reconciliation. Spoke to Patient through director investment banking (Daughter and Son at bedside) Patient states she is no longer on Ezetimibe 10 mg , last fill was 09-04-23 for 90 days, Ketotifen Fumarate, last fill was 10-23-23 for 25 days, Levalbuterol tartrate 45 mcg inhaler, Triamcinolone nasal spray patient never started. Patient states she is on Xolair 150mg Subcut @2W on Fridays , her last dose was 10-18-2023 next dose is 11-01-23, however did not see a claim history.
[2023-10-30 16:04] LABS: Ammonia 21 umol/L (13-55)
[2023-10-30 16:23] LABS: Glucose, Whole Blood 117 mg/dL (60-115)
[2023-10-30] MEDS: Azithromycin 500 MG in 0.9 % Sodium Chloride 250 ML 125 MG IV (17:01)
[2023-10-30] MEDS: Enoxaparin Sodium 40 MG/0.4 ML SYRINGE SUBCUT (17:56)
--- NOTE | 2023-10-30 19:45 | PC.NURSE ---
Assumed care of pt. Pt lying on stretcher, no acute distress at this time.
[2023-10-30] MEDS: 0.9 % Sodium Chloride Flush 3 ML SYRINGE IVFLUSH (20:31)
[2023-10-30] MEDS: DULoxetine HCl 30 MG CAPSULE.DR PO (20:31)
[2023-10-30] MEDS: hydrOXYzine HCL 25 MG TABLET PO (20:31)
[2023-10-30] MEDS: clonazePAM 0.5 MG TABLET PO (20:31)
[2023-10-30] MEDS: Acetaminophen 325 MG TABLET 650 MG PO (21:46)
[2023-10-30] MEDS: Azelastine HCl Nasal 137 MCG/Spray 30 ML 2 SPRAY NOSTRIL-B (21:49)
[2023-10-30] MEDS: Albuterol Sulfate (0.083%) 2.5 MG/3 ML VIAL.NEB INHALE (21:57)
[2023-10-31] VITALS (14 sets, daily range): BP systolic 113–136; BP diastolic 53–64; PULSE 67–86; RESP 18–20; TEMP 36–36.9; O2SAT 93–99
[2023-10-31] MEDS: Ipratropium Bromide 1 PUFF/17 MCG INHALER 2 PUFF INHALE (03:00)
[2023-10-31] MEDS: Acetaminophen 325 MG TABLET 650 MG PO (04:04)
[2023-10-31] MEDS: Pantoprazole Sodium 20 MG TABLET.DR 40 MG PO ×2 (06:20→16:14)
[2023-10-31] MEDS: Fluticasone/Vilanterol 200/25 BLST.W.DEV 1 PUFF INHALE (07:44)
[2023-10-31] MEDS: Tiotropium Bromide 2.5 mcg 1 PUFF/2.5 MCG MIST.INHAL 2 PUFF INHALE (07:45)
[2023-10-31 07:54] LABS: Hematocrit 32.2 % (37.0-47.0); Hemoglobin 10.8 g/dl (12.0-16.0); Mean Corpuscular HGB Conc 33.5 g/dl (31.0-35.0); Mean Corpuscular Hemoglobin 29.6 pg (27.0-33.0); Mean Corpuscular Volume 88.2 fL (80.0-98.0); Mean Platelet Volume 11.2 fL (9.4-12.3); Platelet Count 222 X10*3/uL (160-400); Red Blood Count 3.65 X10*6/uL (4.20-5.50); Red Cell Distribution Width 14.9 % (11.0-16.0); White Blood Count 21.3 X10*3/uL (4.8-10.8)
[2023-10-31 08:00] LABS: Anion Gap 8 (12-20); Blood Urea Nitrogen 11 mg/dL (9-16); Calcium 8.6 mg/dL (8.4-10.2); Carbon Dioxide 25 mmol/L (22-29); Chloride 109 mmol/L (96-108); Creatinine Clr Calc Pharmacy 74.1; Estimated Glomerular Filt Rate > 60; Glucose Random 106 mg/dL (60-115); Potassium 3.4 mmol/L (3.3-5.1); Sodium 139 mmol/L (135-145)
[2023-10-31] MEDS: 0.9 % Sodium Chloride Flush 3 ML SYRINGE IVFLUSH ×3 (09:01→20:25)
[2023-10-31] MEDS: Loratadine 10 MG TABLET PO (09:01)
[2023-10-31] MEDS: Lipase/Prot/Amylase 24/76/120K 1 CAP CAPSULE.DR 3 CAP PO ×2 (09:01→16:14)
[2023-10-31] MEDS: DULoxetine HCl 30 MG CAPSULE.DR PO ×2 (09:01→20:25)
[2023-10-31] MEDS: cefTRIAXone sodium 1 GM in 0.9 % Sodium Chloride 50 ML IV (09:16)
--- NOTE | 2023-10-31 10:41 | MHC.CM.PN ---
Pt lvies with her son, she is independent, does not have home health services, does not use DME. Her PCP is at [facility], she cannot recall their name. HCP was completed and added to chart, naming her son and dtr. Transportation home at DC will be by her daughter. DCP: home, self care. CM to follow for DC needs.
[2023-10-31] MEDS: Albuterol Sulfate (0.083%) 2.5 MG/3 ML VIAL.NEB INHALE (12:10)
[2023-10-31] MEDS: Butalb/Acetamin/Caff 50/325/40 TABLET 2 TAB PO (13:13)
[2023-10-31] MEDS: guaiFENesin LA 600 MG TAB.ER.12H PO ×2 (13:13→20:25)
[2023-10-31] MEDS: Sucralfate 1 GM TABLET 2 GM PO (13:14)
--- NOTE | 2023-10-31 13:59 | P.PNIM_ITS ---
Subjective Subjective Date of Service: 10/31/23 Interval History: the patient was seen and evaluated this morning Laying in bed, feels comfortable Denies any fever, chills or shortness of breath but still coughing No reported other overnight events. Review of Systems Review of Systems: Yes all other systems are reviewed and are negative Physical Exam 2 Vital Signs: Vital Signs: Last Vital Signs Temp 97.7 F 10/31/23 11:28 Pulse 86 10/31/23 12:12 Resp 18 10/31/23 12:12 BP 128/53 L 10/31/23 11:28 Pulse Ox 94 10/31/23 11:28 O2 Del Method Room Air 10/31/23 11:28 O2 Flow Rate 2 10/30/23 23:53 BMI result Body Mass Index 46.4 Const: Other: Constitutional : Awake, interactive, not in distress Neck : Normal inspection, Supple Cardiovascular : RRR, no JVP, no lower extremity edema Respiratory : fair bilateral air entry, basal fine crackles, Gastrointestinal: soft, lax, Normal bowel sounds, Non tender Skin : Warm, Dry Neurological : Alert & oriented x3, No focal deficit Objective Data Active Medications Acetaminophen (Acetaminophen 325 Mg Tablet) 650 mg PO Q6H PRN PRN Reason: Pain, Mild (Pain Scale 1-3), fever or headache Last Admin: 10/31/23 04:04 Dose: 650 mg Documented By: BRIGIDA Albuterol Sulfate (Albuterol Sulfate (0.083%) 2.5 Mg/3 Ml Vial.Neb) 2.5 mg INHALE Q6H PRN PRN Reason: for wheezing Last Admin: 10/31/23 12:10 Dose: 2.5 mg Documented By: MARGOT Albuterol Sulfate (Albuterol Sulfate 90 Mcg 8 Gm Inhaler) 2 puff INHALE Q6H PRN PRN Reason: for wheezing Lipase/Protease/Amylase (Lipase/Prot/Amylase 24/76/120k 1 Cap Capsule.) [facility] [place] Last Admin: 10/31/23 09:01 Dose: 3 cap Documented By: YASMIN Azelastine HCl (Azelastine Hcl Nasal 137 Mcg/[place] 30 Ml) 2 spray NOSTRIL-B BID [facility] Last Admin: 10/30/23 21:49 Dose: 2 spray Documented By: BRIGIDA Calcium Carbonate (Calcium Carbonate 750 Mg Tab.Chew) 750 mg PO Q4H PRN PRN Reason: Heartburn Clonazepam (Clonazepam 0.5 Mg Tablet) 0.5 mg PO BEDTIME [facility] Last Admin: 10/30/23 20:31 Dose: 0.5 mg Documented By: BRIGIDA Clonazepam (Clonazepam 0.5 Mg Tablet) 0.5 mg PO DAILY PRN PRN Reason: anxiety Duloxetine HCl (Duloxetine Hcl 30 Mg Capsule.Dr) 30 mg PO BID [facility] Last Admin: 10/31/23 09:01 Dose: 30 mg Documented By: YASMIN Enoxaparin Sodium (Enoxaparin Sodium 40 Mg/0.4 Ml Syringe) 40 mg SUBCUT Q24H [facility] Last Admin: 10/30/23 17:56 Dose: 40 mg Documented By: MIKA Fluticasone/Vilanterol (Fluticasone/Vilanterol 200/25 Blst.W.Dev) 1 puff INHALE RDAILY [facility] Last Admin: 10/31/23 07:44 Dose: 1 puff Documented By: MARGOT Guaifenesin (Guaifenesin [place] 600 Mg Tab.Er.12h) 600 mg PO BID [facility] Last Admin: 10/31/23 13:13 Dose: 600 mg Documented By: YASMIN Hydroxyzine HCl (Hydroxyzine Hcl 25 Mg Tablet) 25 mg PO BEDTIME [facility] Last Admin: 10/30/23 20:31 Dose: 25 mg Documented By: BRIGIDA Azithromycin 500 mg/ Sodium (Chloride) 250 mls @ 125 mls/hr IV Q24H [facility] Ceftriaxone Sodium 1 gm/ (Sodium Chloride) 50 mls @ 100 mls/hr IV Q24H [facility] Last Infusion: 10/31/23 10:05 Dose: Infused Documented By: YASMIN Ipratropium [place] (Ipratropium [place] 1 Puff/17 Mcg Inhaler) 2 puff INHALE Q8H [facility] Last Admin: 10/31/23 07:45 Dose: Not Given Documented By: MARGOT Non-Admin Reason: See Note Loratadine (Loratadine 10 Mg Tablet) 10 mg PO DAILY [facility] Last Admin: 10/31/23 09:01 Dose: 10 mg Documented By: YASMIN Magnesium Hydroxide (Milk Of Magnesia 30 Ml Oral.Susp) 30 ml PO DAILY PRN PRN Reason: Constipation Melatonin (Melatonin 3 Mg Tablet) 6 mg PO BEDTIME PRN PRN Reason: Insomnia Pt Own - (Incruse Ellipta Inhaler 62.5 Mcg) 1 each INHALE RDAILY [facility] Ondansetron HCl (Ondansetron Hcl 4 Mg/2 Ml Vial) 4 mg IVPUSH Q8H PRN PRN Reason: Nausea and Vomiting Pantoprazole Sodium (Pantoprazole Sodium 20 Mg Tablet.) 40 mg PO BID@0630,1630 [facility] Last Admin: 10/31/23 06:20 Dose: 40 mg Documented By: BRIGIDA Sodium Chloride (0.9 % Sodium Chloride Flush 3 Ml Syringe) 3 ml IVFLUSH QSHIFT [facility] Last Admin: 10/31/23 09:01 Dose: 3 ml Documented By: YASMIN Sucralfate (Sucralfate 1 Gm Tablet) 2 gm PO DAILY@1200 [facility] Last Admin: 10/31/23 13:14 Dose: 2 gm Documented By: YASMIN Labs 10/31/23 07:22 10/31/23 07:22 Labs: Laboratory Results - last 24 hr 10/30/23 10/30/23 10/31/23 15:01 15:53 07:22 MCV 88.2 MCH 29.6 MCHC 33.5 RDW 14.9 Plt Count 222 MPV 11.2 Absolute Nucleated RBC 0.000 Nucleated RBC % (auto) 0.0 Anion Gap 8 L Estim Creat Clear Calc 74.1 Estimated GFR > 60 POC Glucose 117 H Random Glucose 106 Calcium 8.6 Ammonia 21 Microbiology Microbiology Results: Microbiology 10/30/23 10:30 Blood Culture - Preliminary Blood - Venous No growth after 24 hours. 10/30/23 10:29 Blood Culture - Preliminary Blood - Venous No growth after 24 hours. Assessment and Plan (1) Hypotension: Status: Acute (2) Pneumonia: Status: Acute (3) Syncope: Status: Acute Plan Pt is a 63-year-old female with a PMH significant for HTN, HLD, allergic rhinitis,?severe persistent asthma follows closely with allergy and pulmonology, IBS, GEORGIE on CPAP, and GERD who presents to the ED after syncopal episode at home. Pt will be admitted to the hospital for treatment and further evaluation of syncopal episode in the setting of community acquired pneumonia. Community acquired pneumonia CT showing infiltrates Continue ceftriaxone and azithromycin, started 10/30/2023 Titrate supplemental O2 >92, wean as tolerated Follow cultures Syncopal episode Most likely vasovagal associated with dehydration from diarrhea and vomiting, could be orthostatic as well Recheck orthostatics Hold on more IVF Monitor on telemetry Hypotension resolved after IVF Hold furosemide, restart metoprolol Monitor BP Epigastric discomfort, N/V/D, likely from infection and gastritis Continue PPI, sucralfate, Creon Antiemetics prn Severe persistent asthma Not in acute exacerbation Continue home inhalers Mood disorder Continue home mood stabilizers Full Code DVT Prophylaxis: Lovenox Pt will require a hospitalization overnight for treatment of?syncopal episode in the setting of community-acquired pneumonia. Patient will require administration of IV antibiotics and close monitoring Quality Stroke Does the patient have a stroke diagnosis?: No VTE Prior VTE?: No VTE Risk Level:: Medical - moderate - high VTE Device Contraindication: Treatment Not Indicated VTE Drug Contraindication: N/A - Med Ordered
[2023-10-31] MEDS: Azithromycin 500 MG in 0.9 % Sodium Chloride 250 ML 125 MG IV (15:21)
[2023-10-31] MEDS: Enoxaparin Sodium 40 MG/0.4 ML SYRINGE SUBCUT (16:15)
[2023-10-31] MEDS: clonazePAM 0.5 MG TABLET PO (20:25)
[2023-10-31] MEDS: hydrOXYzine HCL 25 MG TABLET PO (20:25)
[2023-10-31] MEDS: Metoprolol Tartrate 50 MG TABLET PO (20:25)
[2023-11-01] VITALS (7 sets, daily range): BP systolic 123–149; BP diastolic 65–81; PULSE 65–75; RESP 18–20; TEMP 36.1–36.9; O2SAT 95–98
[2023-11-01] MEDS: Pantoprazole Sodium 20 MG TABLET.DR 40 MG PO (05:01)
[2023-11-01 06:37] LABS: Anion Gap 9 (12-20); Blood Urea Nitrogen 9 mg/dL (9-16); Calcium 8.6 mg/dL (8.4-10.2); Carbon Dioxide 25 mmol/L (22-29); Chloride 107 mmol/L (96-108); Creatinine Clr Calc Pharmacy 75.9; Estimated Glomerular Filt Rate > 60; Glucose Random 122 mg/dL (60-115); Potassium 3.4 mmol/L (3.3-5.1); Sodium 138 mmol/L (135-145)
[2023-11-01 06:44] LABS: Hematocrit 31.8 % (37.0-47.0); Hemoglobin 10.5 g/dl (12.0-16.0); Mean Corpuscular Hemoglobin 29.5 pg (27.0-33.0); Mean Corpuscular Volume 89.3 fL (80.0-98.0); Mean Platelet Volume 11.1 fL (9.4-12.3); Platelet Count 221 X10*3/uL (160-400); Red Blood Count 3.56 X10*6/uL (4.20-5.50); Red Cell Distribution Width 15.2 % (11.0-16.0); White Blood Count 10.7 X10*3/uL (4.8-10.8)
[2023-11-01] MEDS: Fluticasone/Vilanterol 200/25 BLST.W.DEV 1 PUFF INHALE (07:46)
[2023-11-01] MEDS: Metoprolol Tartrate 50 MG TABLET PO (09:06)
[2023-11-01] MEDS: Lipase/Prot/Amylase 24/76/120K 1 CAP CAPSULE.DR 3 CAP PO (09:06)
[2023-11-01] MEDS: 0.9 % Sodium Chloride Flush 3 ML SYRINGE IVFLUSH (09:06)
[2023-11-01] MEDS: guaiFENesin LA 600 MG TAB.ER.12H PO (09:06)
[2023-11-01] MEDS: DULoxetine HCl 30 MG CAPSULE.DR PO (09:07)
[2023-11-01] MEDS: cefTRIAXone sodium 1 GM in 0.9 % Sodium Chloride 50 ML IV (09:09)
[2023-11-01] MEDS: Butalb/Acetamin/Caff 50/325/40 TABLET 1 TAB PO (10:14)
[2023-11-01] MEDS: Omeprazole 20 MG CAPSULE.DR PO (10:15)
[2023-11-01] MEDS: Loratadine 10 MG TABLET PO (10:25)
[2023-11-01] MEDS: Sucralfate 1 GM TABLET 2 GM PO (11:23)
--- NOTE | 2023-11-01 12:20 | P.DS_ITS ---
DS: Providers Provider Date of Service: 11/01/23 Date of admission: 10/30/23 17:02 Date of discharge: 11/01/23 Primary care physician: DOUGLAS Will DS: Diagnosis Discharge Diagnosis (1) Hypotension: Status: Acute (2) Pneumonia: Status: Acute (3) Syncope: Status: Acute DS: Summary Hospital Course Hospital Course: Admission note HPI Pt is a 63-year-old female with a PMH significant for HTN, HLD, allergic rhinitis,?severe persistent asthma follows closely with allergy and pulmonology, IBS, GEORGIE on CPAP, and GERD who presents to the ED after syncopal episode at home. Pt reports has been feeling more fatigued with increased cough the past few days. When she awoke this morning was experiencing epigastric stomach pain and nausea. Went to the bathroom and had an episode of diarrhea. Right after patient got up and felt lightheaded, dizzy, and daughter noted her face was pale/white. She was then brought to the sofa by her her and daughter where she then had a moment of unresponsiveness without seizure-like activity. Unclear whether pt fully lost consciousness or not. Denies eating any suspicious foods. 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 Has been eating and drinking normally. She did not fall, no headstrike. Patient denies fever, chills, vomiting. No shortness a breath or difficulty breathing. Denies chest pain or pressure. In the ED initial orthostatics were negatvie but pt had an episode of vomiting followed by near syncope, BP drop to 98/35, and bradycardia into the 40s. Of note, pt's son reports she experienced similar episode many years ago. Pt also reports just finishing up course of prednisone a few days ago. In the ED pt was initially tachypneic at 22 and was soft BP of 98/35. Labs were significant for leukocytosis of 16.3, otherwise grossly unremarkable. No significant electrolyte abnormalities. Renal function baseline. Lactic acid WNL at 2.0. Hepatic function baseline. Troponin negative. BNP WNL. UA negative. Tested negative for flu, RSV CXR pending. CT?of abdomen showing patchy ground-glass opacities within the right middle and lower lobes which may be infectious/inflammatory in etiology. Also showed cholelithiasis without evidence of acute cholecystitis and hepatic steatosis. CTA of head negative for acute intracranial pathology. EKG demonstrated normal sinus rhythm without evidence of significant ST elevations or depressions. Pt was treated with morphine, IVF, and ceftriaxone. Pt will be admitted to the hospital for treatment and further evaluation of syncopal episode in the setting of community acquired pneumonia. Hospital course # Community acquired pneumonia As CT showing infiltrates in RLL. Treated with Ceftriaxone and azithromycin, started 10/30/2023. Titrate supplemental O2 >92, wean as tolerated to room air. Was able to ambulate with no reported dyspnea or hypoxia. To be dishcarged on 5 more days of Doxycycline and Ceftine as blood cultures negative. # Syncopal episode, Most likely vasovagal associated with dehydration from diarrhea and vomiting, could be orthostatic as well. Negative rechecked or thostatics. received IV fluids supplement. Able to participate with PT. no recurrence. Advised to stay well hydrated and take her time changing position along with avoiding constipation. # Hypotension, resolved after IVF as it is likely from dehydration as Held furosemide, to restart upon discharge. Monitor BP # Epigastric discomfort, N/V/D, likely from infection and gastritis, Started on PPI along with sucralfate, Creon # Severe persistent asthma, Not in acute exacerbation, Continue home inhalers. Discharge plan Increase fluid intake and stay well hydrated Continue Antibiotics as prescribed Fiorecit for headache Omeprazole for gastritis To do home physical therapy. Time Attestation Discharge Coordination Time (in mins): 38 Quality: Safe Use of Opioids Does Pt have an Active Cancer Diagnosis on the Problem List?: No Quality: Stroke Does the patient have a stroke diagnosis?: No Physical Exam Vital Signs: Vital Signs: Last Vital Signs Temp 97.6 F 11/01/23 11:09 Pulse 67 11/01/23 11:09 Resp 20 11/01/23 11:09 BP 123/65 11/01/23 11:09 Pulse Ox 95 11/01/23 11:09 O2 Del Method Room Air 11/01/23 11:09 O2 Flow Rate 2 10/30/23 23:53 BMI result Body Mass Index 46.4 Const: Other: Constitutional : Awake, interactive, not in distress Neck : Normal inspection, Supple Cardiovascular : RRR, no JVP, no lower extremity edema Respiratory : fair bilateral air entry, no crackles, scattered wheezes Gastrointestinal: soft, lax, Normal bowel sounds, Non tender Skin : Warm, Dry Neurological : Alert & oriented x3, No focal deficit DS: Data Data Completed and Pending Labs on day of discharge: Laboratory Results - last 24 hr 11/01/23 06:07 WBC 10.7 RBC 3.56 L Hgb 10.5 L Hct 31.8 L MCV 89.3 MCH 29.5 MCHC 33.0 RDW 15.2 Plt Count 221 MPV 11.1 Absolute Nucleated RBC 0.000 Nucleated RBC % (auto) 0.0 Sodium 138 Potassium 3.4 Chloride 107 Carbon Dioxide 25 Anion Gap 9 L BUN 9 Creatinine 0.83 Estim Creat Clear Calc 75.9 Estimated GFR > 60 Random Glucose 122 H Calcium 8.6 Preliminary micro results at discharge 10/30/23 10:30 Blood Culture - Preliminary Blood - Venous No growth after 24 hours. 10/30/23 10:29 Blood Culture - Preliminary Blood - Venous No growth after 24 hours. Imaging Chest x-ray: Radiologist's impression: ITS Impressions Abdomen/Pelvis CT 10/30/23 10:43 IMPRESSION: 1. Cholelithiasis without CT evidence of acute cholecystitis. Mild prominence of the central left intrahepatic bile ducts. The common bile duct is normal in caliber. 2. Hepatic steatosis. 3. Patchy groundglass opacities within the right middle and lower lobes which may be infectious/inflammatory in etiology. 4. Mild wall thickening in the mid transverse colon may be exaggerated by under distended state. No surrounding pericolonic inflammatory changes. Electronically signed by: Luis Nino MD 10/30/2023 01:16 PM EDT RP Head CT 10/30/23 11:10 IMPRESSION: No acute intracranial pathology. Electronically signed by: Luis Nino MD 10/30/2023 01:33 PM EDT RP Chest X-Ray 10/30/23 13:21 IMPRESSION: Mild bibasilar atelectasis. No acute pulmonary findings. Electronically signed by: Nilo Montalvo MD 10/30/2023 04:01 PM EDT RP Discharge Plan Discharge Anticipated Discharge Date/Time: 11/01/23 12:14 Patient Disposition: Home Health Service Discharge Diagnosis: Pneumonia Syncope Referrals: Lilian Mcclellan, [employer] [Primary Care Provider] - 1 Week Discharge Medications: New doxycycline monohydrate 100 mg capsule 100 mg PO BID Qty: 10 0RF cefuroxime axetil 500 mg tablet 500 mg PO BID Qty: 10 0RF [id number] 50-325-40 mg Tablet 1 tab PO Q4H PRN (Reason: Headache) Qty: 20 0RF omeprazole 20 mg Capsule,Delayed Release(Dr/Ec) 20 mg PO DAILY@0630 Qty: 90 0RF guaifenesin [Mucinex] 600 mg Tablet Extended Release 12hr 600 mg PO BID Qty: 10 0RF Continued Xolair 150 mg/mL syringe 150 mg subcut Q2W 28 Days Qty: 2 11RF Rx Instructions: On Fridays Next Dose 11/01/23 albuterol sulfate [Ventolin HFA] 90 mcg/actuation HFA aerosol inhaler 2 puff PO Q6H PRN (Reason: for wheezing) Qty: 18 9RF clonazepam 0.5 mg tablet 0.5 mg PO DAILY PRN (Reason: anxiety) azelastine 137 mcg (0.1 %) spray,non-aerosol 2 spray intranasal BID Atrovent HFA 17 mcg/actuation HFA aerosol inhaler 2 puff INHALATION Q8H Creon 36,000-114,000- 180,000 unit capsule,delayed release(DR/EC) 2 cap PO BIDWM Incruse Ellipta 62.5 mcg/actuation blister with device 1 inh INHALATION DAILY pantoprazole 40 mg tablet,delayed release (DR/EC) 40 mg PO BID@0630,1630 lidocaine [Lidoderm] 5 % adhesive patch,medicated 1 patch topical DAILY PRN (Reason: Pain) Rx Instructions: leave on most painful area for up to 12 hrs metoprolol tartrate 50 mg tablet 50 mg PO BID fluticasone furoate-vilanterol [Breo Ellipta] 200-25 mcg/dose blister with device 1 ea INHALATION DAILY sucralfate [Carafate] 1 gram tablet 2 g PO DAILY@1200 Rx Instructions: PLEASE BE SURE TO PACKAGE IT 2 TABS AT THE SAME TIME, NOT TWICE A DAY TO AVOID THIS MEDICATION INTERFERING WITH THE ABSORPTION OF OTHER MEDICINES clonazepam 0.5 mg tablet 0.5 mg PO BEDTIME (DME) CPAP Machine/Device Device See Rx Instructions .ROUTE Rx Instructions: As directed hydroxyzine HCl 25 mg tablet 25 mg PO BEDTIME (DME) nebulizers Misc See Rx Instructions .ROUTE Rx Instructions: As directed duloxetine 30 mg capsule,delayed release(DR/EC) 30 mg PO BID omega 0-ncz-ofv-fish oil 300 mg (120 mg- 180mg)-1,000 mg capsule 1 cap PO DAILY furosemide [Lasix] 20 mg tablet 20 mg PO DAILY 7 Days Qty: 7 0RF levocetirizine 5 mg tablet 5 mg PO DAILY Qty: 30 11RF epinephrine [EpiPen 2-Rell] 0.3 mg/0.3 mL auto-injector 0.3 mg IM Q10M PRN (Reason: anaphylaxis) 30 Days Qty: 2 6RF Rx Instructions: for 2 doses albuterol sulfate 2.5 mg /3 mL (0.083 %) solution for nebulization 2.5 mg inhalation Q6H PRN (Reason: for wheezing) 30 Days Qty: 180 11RF Discharge Orders: Discharge Order (Routine); Ordered 11/01/23 Ordered By: Edith Leon Diet: Advance to usual diet Activity on Discharge: As tolerated Stand Alone Forms: Patient Portal Discharge page Print Language: [place] Care Plan Goals: You were treated for pneumonia and evaluated for Syncope. Your symptoms improved with antibiotics and IV fluids. Increase fluid intake and stay well hydrated Continue Antibiotics as prescribed Fiorecit for headache Omeprazole for gastritis To do home physical therapy. Health Concerns: Read below Plan of Treatment: Read below Assessment: Read below
--- NOTE | 2023-11-01 12:30 | P.F2F_ITS ---
Service Date Service Date: 11/01/23 Encounter Date of encounter: 11/01/23 Reasons for Services Signs and symptoms assessed: physical deconditioning Reason for physical therapy: home safety and mobility and therapeutic exercises Homebound: Leaving the home is medically contraindicated at this time without the asist of a device and/or another person due th the listed conditions above and below. Reason homebound: unsteady gait / fall risk Certification: Based on the above findings, I certify that this patient is confined to the home and needs intermittent assisted care, physical therapy and/or speech therapy, or continues to need occupational therapy. The patient is under my care, and I have initiated the establishment of the plan of care. The patient will be followed by a physician who will periodically review the plan of care. Time Spent With Patient Time: Total time managing care of this patient today ____ minutes.
--- NOTE | 2023-11-01 14:31 | MHC.CM.PN ---
Pt has been medically cleared for DC, she will go home via family transport and have home care services from [facility].
== END 2023-11-01 13:10 | disposition home health service (06) | DRG 139 ==
LOC: HO.ED 14:42 → HO.EDOVER 17:20 → HO.IMC 18:24
PROVIDERS: Physician Assistant; Admitting Provider Student in an Organized Health Care Education/Training Program; Emergency Provider Emergency Medicine; PCP Registered Nurse; Visit Provider Student in an Organized Health Care Education/Training Program
DX: J18.9 Pneumonia, unspecified organism (principal); I95.9 Hypotension, unspecified; E86.0 Dehydration; F39 Unspecified mood [affective] disorder; J45.50 Severe persistent asthma, uncomplicated; G47.33 Obstructive sleep apnea (adult) (pediatric); K29.70 Gastritis, unspecified, without bleeding; K21.9 Gastro-esophageal reflux disease without esophagitis; Z20.822 Contact with and (suspected) exposure to COVID-19; Z87.891 Personal history of nicotine dependence; Z79.51 Long term (current) use of inhaled steroids; Z79.899 Other long term (current) drug therapy
CPT/HCPCS: 0241U; 36415; 70450; 71045; 74177; 80048; 80053; 81003; 82140; 82550; 82947; 83605; 83735; 83880; 84484; 85025; 85027; 85379; 85610; 87040; 93005; 94640; 94660; 97162; 99285; J0456; J0696; J1650; J1836; J2270; Q9967

== ENCOUNTER → 2023-10-30 17:02 | Outpatient (BNV) | payer MEDICAID, SELFPAY | PROVIDERS: Admitting Provider Student in an Organized Health Care Education/Training Program; Emergency Provider Emergency Medicine; PCP Registered Nurse; Visit Provider Student in an Organized Health Care Education/Training Program | DX: R55 Syncope and collapse (principal); J18.9 Pneumonia, unspecified organism | CPT/HCPCS: 99223; 99232; 99239; G0180 ==

== ENCOUNTER 2023-11-05 11:35 | Outpatient (REF) | payer MEDICAID, SELFPAY ==
[2023-11-05 13:45] LABS: Anion Gap 11 (12-20); Blood Urea Nitrogen 9 mg/dL (9-16); Calcium 9.4 mg/dL (8.4-10.2); Carbon Dioxide 27 mmol/L (22-29); Chloride 106 mmol/L (96-108); Estimated Glomerular Filt Rate > 60; Glucose Random 98 mg/dL (60-115); Potassium 3.3 mmol/L (3.3-5.1); Sodium 141 mmol/L (135-145)
[2023-11-05 14:03] LABS: B Type Natriuretic Peptide 95 pg/mL (<100)
== END 2023-11-05 11:36 | disposition home or self-care (01) ==
LOC: HO.HHCL 11:35
PROVIDERS: Visit Provider Internal Medicine
DX: J18.9 Pneumonia, unspecified organism (principal); I27.20 Pulmonary hypertension, unspecified; R55 Syncope and collapse
CPT/HCPCS: 36415; 80048; 83735; 83880; 84100

== ENCOUNTER 2023-11-06 11:29 | Outpatient (REF) | payer MEDICAID, SELFPAY ==
[2023-11-06 12:57] LABS: CDiff Gene PCR NEGATIVE (Negative)
[2023-11-06 14:02] LABS: Leukocytes Stool Qualitative NEGATIVE (NEGATIVE)
== END 2023-11-06 11:30 | disposition home or self-care (01) ==
LOC: HO.HHCLNP 11:29
PROVIDERS: Visit Provider Internal Medicine
DX: R19.7 Diarrhea, unspecified (principal)
CPT/HCPCS: 87493; 89055

== ENCOUNTER 2023-12-03 10:37 | Outpatient (AMB) | payer MEDICAID, SELFPAY ==
[2023-12-03 10:42] VITALS: BP 136/70; PULSE 89; O2SAT 97; BMI 42.7
--- NOTE | 2023-12-03 10:42 | MHC.OFFVIS ---
Vital Signs 12/03/23 10:42 Height 4 ft 11 in Weight 211 lb 10.3 oz BMI 42.7 BP 136/70 Blood Pressure Location Lt brachial Position Sitting Pulse 89 Pulse Source Pulse Oximeter Pulse Oximetry (%) 97 Oxygen Delivery Method Room Air Intake Visit Reasons: Asthma Speech Writer Required: No Allergies Penicillins Allergy (Severe, Verified 12/03/23 10:45) hives, swelling pollen extracts [POLLEN] Allergy (Severe, Verified 12/03/23 10:45) ITCHING peanut [PEANUT] Allergy (Intermediate, Verified 12/03/23 10:45) RASH plum Allergy (Severe, Uncoded 12/03/23 10:45) swelling HPI Comments Details: The patient is a 63-year-old woman with known severe persistent asthma follow closely by Allergy and also pulmonary. She is currently on Xolair and is also on Breo and Atrovent HFA. She has felt that her respiratory symptoms have improved on this medication. However, lately the last week or 2 she is having more chest congestion and wheezing. She is having to use her nebulizer up to 4 times a day. She is trying to expectorate phlegm and is usually clear in color. Denies any fevers or chills or night sweats or body aches. She also complains of nasal congestion and is feels like she is having better allergies at this time. She has tried multiple nasal spray with a no significant improvement. 04/06/2022 the patient is here for a pulmonary follow-up visit. She has been having hard time with her breathing. Complains of chest tightness and wheezing. Moderate severity. Her inhalers have not been completely effective. She also complains of chest congestion and cough. She is bringing up yellowish phlegm. Difficult to expectorate. In addition to that she is having hard time with her CPAP. The CPAP is shutting off in the middle the night and she has a hard time because of the shortness of breath. She will have Robb go to her home to address the issues with her machine. If the machine is broken beyond repair she is going to [place] replacement. She will call us once after she has evaluation to make sure that we address any issues with her CPAP. In the meantime the CPAP therapy has been very affecting beneficial when he was working properly. I did adjust the pressures a little bit I increased her maximum pressure to 16. She is using nasal pillows. I did talk about considering getting a chinstrap in order to minimize air leakage in case that is causing the machine to shot up by itself. 06/01/2022 the patient is here for a pulmonary follow-up visit. She was doing well until couple days ago when she started developing sinus pain pressure and postnasal drip. She feels congested. She feels like this will go down to her lungs and resulting worsening respiratory complaints. She read treated now. The patient has been using her respiratory medications although she does not have all them available. I will make sure to sent to the pharmacy. She did bring her new CPAP. The CPAP therapy continues to be affecting beneficial. She does use it more than 4 hours. Last night she only used it for 3 hours because she fell asleep washing TV. She is aware that if she does not use it enough she with on going to be able to get supplies. The patient is using nasal pillows. They appear to be affected with the go ahead and send [facility] a prescription for renewal of her supplies at this time. She continues on the Xolair injections. The been affecting beneficial. 11/26/2022 the patient is here for pulmonary follow-up visit. The patient has not been feeling well for couple days. She did tested negative for COVID yesterday. Started having flu-like symptoms. Sore throat and also cough. She is having some chest congestion. She is using her nebulizer more often. Prior to this illness she was doing just fine her current respiratory regimen. She continues on the Xolair injections. The patient also continues her CPAP therapy she does use it more than 4 hours a night. She does get supplies from [facility]. We had sent a prescription back in May but she has yet to receive them. Therefore, will send another script for her to continue getting her supplies to her [facility] [employer]. Will go ahead and swab her for flu RSV and COVID right now. If the patient has abnormal result I will let her know. Otherwise she will start a prednisone taper and some antibiotics to treat her for a respiratory infectious process. 04/05/2023 the patient is here for sick visit. She has been sick now for about 4 days. She started developing fevers and chills. Also nasal congestion and sore throat. The patient was noticing increasing chest tightness shortness of breath and wheezing. Therefore she called for an appointment. The patient did have a nasal swab in the office. Was negative for RSV, flu and COVID-19. The patient does have significant wheezing on examination. She is also coughing with some chest congestion. Mucus is yellowish in color. The patient has been using her respiratory therapy. She needs an additional nebulized therapy. She continues use Mucinex as needed for the chest congestion. This time will going to go ahead and send the additional medications to the pharmacy to treat an asthma exacerbation due to a viral syndrome. She is also struggling getting supplies from her [employer], [facility]. We did call them it seems that everything is up today. However she needs to make an appointment to be able to picker feeder her equipment. She is using the P 10 mask the seems to be the most comfortable for her. 07/30/2023 the patient is here for pulmonary follow-up visit. Overall she is doing well. The patient has been taking the Xolair once a month and seems to be more effective for her she continues on respiratory inhalers. Some mixup with the inhalers. She was supposed to be on Trelegy but only taking Incruse. Therefore explained to her the importance of being on the Trelegy or adding the Breo to her Incruse if is not covered. She will call the office if she can go on Trelegy. She is having issues with back pain and muscle pain. She is waiting for if physical therapy evaluation. In the meantime the patient continues with respiratory therapy with good effect. Seems like her new nasal sprays that working more effectively and the patient has been able to tolerate CPAP. CPAP therapy continues to be affecting beneficial. Otherwise she is without any other complaints. Will follow-up in 4-6 months. 10/01/2023 this is a telehealth visit. The patient called yesterday about testing positive for COVID. She has been having worsening cough chest congestion wheezing. She has been using her nebulizer every 6 hours. Sometimes every 4 hours. She still having hard time. She did picker feeder the Paxlovid she did start yesterday. Seems to be tolerating it. In the meantime she is having a productive cough with yellow phlegm. She is going to monitor that. If the chest congestion and phlegm is not improving in the next 24 hours she can go ahead and start doxycycline. I will also give her low-dose prednisone that she can also start to make sure does not interact too much with the Paxlovid. If her condition worsens more than that she can always call the office but she would need to be seen in the ER. I am hopeful though that in the next 24:48 hours she should start feeling better on the Paxlovid. 12/03/2023 the patient is here for a pulmonary follow-up visit. She is not doing well after having COVID. The patient was scheduled to undergo eye surgery but she was not doing well from a respiratory status and therefore her surgery was postponed in order for her to get a pulmonary evaluation. She has been having worsening cough with chest congestion. Also complaining of shortness of breath. Jrbr-ao-ccdvytrm severity. She has been on Breo and also on Incruse. Although she has not seen any significant improvement of her symptoms. She also had a prescription for prednisone but she did not take it because it does give her adverse effects. Think at this point be reasonable to try him budesonide along with switching over to Trelegy. And hopefully we can put her on a mild antibiotic to see if we can improve her symptoms of chronic bronchitis. If the patient is no better she will call. Hopefully she is feels better after several weeks of therapy and she can have her eye surgery. FORMERLY [facility], [facility] Medical History Personal history of nicotine dependence Morbid obesity GEORGIE (obstructive sleep apnea) (~2007) Tubular adenoma of colon (~2014) Chronic allergic rhinitis Bronchitis Asthma Surgical History History of endometrial ablation History of colonoscopy History of section Family History Father No problems noted. 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 of Systems Const Reports body aches, Reports difficulty sleeping, Reports fatigue and Reports fever(s) Eyes Reports irritation and Reports itchy eyes ENT Denies change in voice, Denies lip swelling, Reports nasal congestion, Reports nasal discharge and Reports post nasal drip Card Denies chest pain, Reports leg edema and Reports dyspnea on exertion Resp Reports change in phlegm color, Reports chest congestion, Reports cough, Reports dyspnea on exertion, Denies stridor and Reports wheezing GI Denies abdominal pain Musc Denies no additional complaints Neuro Denies Neuro-related abnormal movements Psych Denies no additional complaints Endo Reports fatigue Dalton/Lymph Denies easy bleeding and Denies lymphadenopathy Aller/Immun Reports itchy eyes, Denies lip swelling and Reports wheezing Physical Exam Vital Signs: Last Vital Signs Pulse 89 12/03/23 10:42 BP 136/70 12/03/23 10:42 Pulse Ox 97 12/03/23 10:42 Oxygen Delivery Method Room Air 12/03/23 10:42 BMI result Body Mass Index 42.7 Const General: alert Eyes Conjunctivae: conjunctival abnormal bilateral conjunctival injection and discharge Pupils: Equal, round and reactive pupils present Neck Neck: Yes normal visual inspection, Yes full ROM and Yes no lymphadenopathy Resp Auscultation: clear to auscultation bilaterally, no rhonchi and no wheezes Cardio Rate: regular rate Rhythm: regular rhythm Heart sounds: S1 normal heart sound present and S2 normal heart sound present GI Palpation (GI): Soft to palpation and nontender Auscultation: normal bowel sounds Skin General skin exam: rashes and/or lesions noted Neuro Cranial nerves: Yes Equal, round and reactive pupils present Extrem General: Yes edema Assessment & Plan Assessment & Plan (1) Asthma: Code(s): J45.909 - Unspecified asthma, uncomplicated Category: Medical Qualifiers: Asthma complication type: with acute exacerbation Asthma persistence: persistent Asthma severity: severe Qualified Code(s): J45.51 - Severe persistent asthma with (acute) exacerbation (2) Chronic allergic rhinitis: Code(s): J30.9 - Allergic rhinitis, unspecified Category: Medical (3) GEORGIE (obstructive sleep apnea): Onset Date: ~2007 Code(s): G47.33 - Obstructive sleep apnea (adult) (pediatric) Category: Medical (4) GERD (gastroesophageal reflux disease): Code(s): K21.9 - Gastro-esophageal reflux disease without esophagitis Category: Medical Qualifiers: Esophagitis presence: without esophagitis Qualified Code(s): K21.9 - Gastro-esophageal reflux disease without esophagitis Plan Short-acting beta agonist as needed Trelegy inhaler 200 mcg daily Epi pen as needed start Azithromycin MWF start BUdesonide nebs BID Prednisone if no better Qnasl Astelin nasal spray Antihistamines Continue Xolair twice a month continue CPAP , needs supplies weight management Lung cancer screening program Follow-up in 1-2 months Medications: New azithromycin Take 1 tablet on Saturday/Saturday/Saturday 250 mg PO 3XW 12 tabs 0RF 28 days K21.9 - Gastro-esophageal reflux disease without esophagitis [id number] 200-62.5-25 mcg (Trelegy Ellipta) 1 inh inhalation DAILY 60 ea 12RF 30 days budesonide 0.5 mg (2 mL) inhalation BID 120 mL 11RF 30 days J44.9 - Chronic obstructive pulmonary disease, unspecified Coding Level of Care Code Est Pt Level 4 (57320) Diagnoses Severe persistent asthma with acute exacerbation J45.51 Asthma complication type: with acute exacerbation Asthma persistence: persistent Asthma severity: severe Chronic allergic rhinitis J30.9 GEORGIE (obstructive sleep apnea) G47.33 Gastroesophageal reflux disease without esophagitis K21.9 Esophagitis presence: without esophagitis Time Spent (min) 17
== END 2023-12-03 11:32 | disposition home or self-care (01) ==
PROVIDERS: PCP Registered Nurse; Visit Provider Hospitalist
DX: J45.51 Severe persistent asthma with (acute) exacerbation (principal); J30.9 Allergic rhinitis, unspecified; G47.33 Obstructive sleep apnea (adult) (pediatric); K21.9 Gastro-esophageal reflux disease without esophagitis
CPT/HCPCS: 99214

== ENCOUNTER → 2023-12-03 10:37 | Outpatient (BNVA) | payer MEDICAID, SELFPAY | PROVIDERS: PCP Registered Nurse; Visit Provider Hospitalist | DX: J45.51 Severe persistent asthma with (acute) exacerbation (principal); J30.9 Allergic rhinitis, unspecified; G47.33 Obstructive sleep apnea (adult) (pediatric); K21.9 Gastro-esophageal reflux disease without esophagitis | CPT/HCPCS: 99212 ==

== ENCOUNTER 2024-02-03 10:10 | Outpatient (AMB) | payer MEDICAID, SELFPAY ==
[2024-02-03 10:12] VITALS: BP 118/67; PULSE 59; TEMP 37.2; O2SAT 99; BMI 42.2
--- NOTE | 2024-02-03 10:12 | MHC.OFFVIS ---
Vital Signs 02/03/24 10:12 Height 4 ft 11 in Weight 209 lb BMI 42.2 BP 118/67 Blood Pressure Location Lt brachial Position Sitting Pulse 59 Pulse Source Doppler Temp 99 F Pulse Oximetry (%) 99 Oxygen Delivery Method Room Air Intake Visit Reasons: Asthma Allergies Penicillins Allergy (Severe, Verified 02/03/24 10:16) hives, swelling pollen extracts [POLLEN] Allergy (Severe, Verified 02/03/24 10:16) ITCHING peanut [PEANUT] Allergy (Intermediate, Verified 02/03/24 10:16) RASH plum Allergy (Severe, Uncoded 12/03/23 10:45) swelling HPI Comments Details: The patient is a 63-year-old woman with known severe persistent asthma follow closely by Allergy and also pulmonary. She is currently on Xolair and is also on Breo and Atrovent HFA. She has felt that her respiratory symptoms have improved on this medication. However, lately the last week or 2 she is having more chest congestion and wheezing. She is having to use her nebulizer up to 4 times a day. She is trying to expectorate phlegm and is usually clear in color. Denies any fevers or chills or night sweats or body aches. She also complains of nasal congestion and is feels like she is having better allergies at this time. She has tried multiple nasal spray with a no significant improvement. 04/06/2022 the patient is here for a pulmonary follow-up visit. She has been having hard time with her breathing. Complains of chest tightness and wheezing. Moderate severity. Her inhalers have not been completely effective. She also complains of chest congestion and cough. She is bringing up yellowish phlegm. Difficult to expectorate. In addition to that she is having hard time with her CPAP. The CPAP is shutting off in the middle the night and she has a hard time because of the shortness of breath. She will have Robb go to her home to address the issues with her machine. If the machine is broken beyond repair she is going to [facility] replacement. She will call us once after she has evaluation to make sure that we address any issues with her CPAP. In the meantime the CPAP therapy has been very affecting beneficial when he was working properly. I did adjust the pressures a little bit I increased her maximum pressure to 16. She is using nasal pillows. I did talk about considering getting a chinstrap in order to minimize air leakage in case that is causing the machine to shot up by itself. 06/01/2022 the patient is here for a pulmonary follow-up visit. She was doing well until couple days ago when she started developing sinus pain pressure and postnasal drip. She feels congested. She feels like this will go down to her lungs and resulting worsening respiratory complaints. She read treated now. The patient has been using her respiratory medications although she does not have all them available. I will make sure to sent to the pharmacy. She did bring her new CPAP. The CPAP therapy continues to be affecting beneficial. She does use it more than 4 hours. Last night she only used it for 3 hours because she fell asleep washing TV. She is aware that if she does not use it enough she with on going to be able to get supplies. The patient is using nasal pillows. They appear to be affected with the go ahead and send [facility] [place] a prescription for renewal of her supplies at this time. She continues on the Xolair injections. The been affecting beneficial. 11/26/2022 the patient is here for pulmonary follow-up visit. The patient has not been feeling well for couple days. She did tested negative for COVID yesterday. Started having flu-like symptoms. Sore throat and also cough. She is having some chest congestion. She is using her nebulizer more often. Prior to this illness she was doing just fine her current respiratory regimen. She continues on the Xolair injections. The patient also continues her CPAP therapy she does use it more than 4 hours a night. She does get supplies from [facility] [place]. We had sent a prescription back in May but she has yet to receive them. Therefore, will send another script for her to continue getting her supplies to her [facility]. Will go ahead and swab her for flu RSV and COVID right now. If the patient has abnormal result I will let her know. Otherwise she will start a prednisone taper and some antibiotics to treat her for a respiratory infectious process. 04/05/2023 the patient is here for sick visit. She has been sick now for about 4 days. She started developing fevers and chills. Also nasal congestion and sore throat. The patient was noticing increasing chest tightness shortness of breath and wheezing. Therefore she called for an appointment. The patient did have a nasal swab in the office. Was negative for RSV, flu and COVID-19. The patient does have significant wheezing on examination. She is also coughing with some chest congestion. Mucus is yellowish in color. The patient has been using her respiratory therapy. She needs an additional nebulized therapy. She continues use Mucinex as needed for the chest congestion. This time will going to go ahead and send the additional medications to the pharmacy to treat an asthma exacerbation due to a viral syndrome. She is also struggling getting supplies from her [employer] company, [employer]. We did call them it seems that everything is up today. 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 She is using the P 10 mask the seems to be the most comfortable for her. 07/30/2023 the patient is here for pulmonary follow-up visit. Overall she is doing well. The patient has been taking the Xolair once a month and seems to be more effective for her she continues on respiratory inhalers. Some mixup with the inhalers. She was supposed to be on Trelegy but only taking Incruse. Therefore explained to her the importance of being on the Trelegy or adding the Breo to her Incruse if is not covered. She will call the office if she can go on Trelegy. She is having issues with back pain and muscle pain. She is waiting for if physical therapy evaluation. In the meantime the patient continues with respiratory therapy with good effect. Seems like her new nasal sprays that working more effectively and the patient has been able to tolerate CPAP. CPAP therapy continues to be affecting beneficial. Otherwise she is without any other complaints. Will follow-up in 4-6 months. 10/01/2023 this is a telehealth visit. The patient called yesterday about testing positive for COVID. She has been having worsening cough chest congestion wheezing. She has been using her nebulizer every 6 hours. Sometimes every 4 hours. She still having hard time. 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 Seems to be tolerating it. In the meantime she is having a productive cough with yellow phlegm. She is going to monitor that. If the chest congestion and phlegm is not improving in the next 24 hours she can go ahead and start doxycycline. I will also give her low-dose prednisone that she can also start to make sure does not interact too much with the Paxlovid. If her condition worsens more than that she can always call the office but she would need to be seen in the ER. I am hopeful though that in the next 24:48 hours she should start feeling better on the Paxlovid. 12/03/2023 the patient is here for a pulmonary follow-up visit. She is not doing well after having COVID. The patient was scheduled to undergo eye surgery but she was not doing well from a respiratory status and therefore her surgery was postponed in order for her to get a pulmonary evaluation. She has been having worsening cough with chest congestion. Also complaining of shortness of breath. [id number] severity. She has been on Breo and also on Incruse. Although she has not seen any significant improvement of her symptoms. She also had a prescription for prednisone but she did not take it because it does give her adverse effects. Think at this point be reasonable to try him budesonide along with switching over to Trelegy. And hopefully we can put her on a mild antibiotic to see if we can improve her symptoms of chronic bronchitis. If the patient is no better she will call. Hopefully she is feels better after several weeks of therapy and she can have her eye surgery. 02/03/2024 the patient is here for a pulmonary follow-up visit. The patient overall has been doing well. She continues her respiratory medicine with good effect. The patient has continue the Xolair injections also have been affecting beneficial. Respiratory [place] she is doing well. She is also using the CPAP. CPAP therapy continues to be affecting beneficial. She does use it more than 4 hours a night. The only complaint that she has her eyes are irritating and drippy. She did well with the eyedrop C4. Will go ahead and reorder them for her. 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 [facility] Medical History Personal history of nicotine dependence Morbid obesity GEORGIE (obstructive sleep apnea) (~2007) Tubular adenoma of colon (~2014) Chronic allergic rhinitis Bronchitis Asthma Surgical History History of endometrial ablation History of colonoscopy History of section Family History Father No problems noted. 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 [employer] Const Denies body aches, Reports difficulty sleeping, Denies fatigue and Denies fever(s) Eyes Reports irritation and Reports itchy eyes ENT Denies change in voice, Denies lip swelling, Reports nasal congestion, Reports nasal discharge and Reports post nasal drip Card Denies chest pain, Reports leg edema and Reports dyspnea on exertion Resp Denies change in phlegm color, Denies chest congestion, Reports cough, Reports dyspnea on exertion, Denies stridor and Reports wheezing GI Denies abdominal pain Musc Denies no additional complaints Neuro Denies Neuro-related abnormal movements Psych Denies no additional complaints Endo Denies fatigue Dalton/Lymph Denies easy bleeding and Denies lymphadenopathy Aller/Immun Reports itchy eyes, Denies lip swelling and Reports wheezing Physical Exam Vital Signs: Last Vital Signs Temp 99 F 02/03/24 10:12 Pulse 59 02/03/24 10:12 BP 118/67 02/03/24 10:12 Pulse Ox 99 02/03/24 10:12 Oxygen Delivery Method Room Air 02/03/24 10:12 BMI result Body Mass Index 42.2 Const General: alert Eyes Conjunctivae: conjunctival abnormal bilateral conjunctival injection and discharge Pupils: Equal, round and reactive pupils present Neck Neck: Yes normal visual inspection, Yes full ROM and Yes no lymphadenopathy Chest Chest palpation & inspection: normal inspection of the chest Resp Auscultation: clear to auscultation bilaterally, no rhonchi and no wheezes Cardio Rate: regular rate Rhythm: regular rhythm Heart sounds: S1 normal heart sound present and S2 normal heart sound present GI Palpation (GI): Soft to palpation and nontender Auscultation: normal bowel sounds Skin General skin exam: rashes and/or lesions noted Neuro Cranial nerves: Yes Equal, round and reactive pupils present Extrem General: Yes edema Assessment & Plan Assessment & Plan (1) Asthma: Code(s): J45.909 - Unspecified asthma, uncomplicated Category: Medical Qualifiers: Asthma complication type: uncomplicated Asthma persistence: persistent Asthma severity: severe Qualified Code(s): J45.50 - Severe persistent asthma, uncomplicated (2) Chronic allergic rhinitis: Code(s): J30.9 - Allergic rhinitis, unspecified Category: Medical (3) GEORGIE (obstructive sleep apnea): Onset Date: ~2007 Code(s): G47.33 - Obstructive sleep apnea (adult) (pediatric) Category: Medical (4) GERD (gastroesophageal reflux disease): Code(s): K21.9 - Gastro-esophageal reflux disease without esophagitis Category: Medical Qualifiers: Esophagitis presence: without esophagitis Qualified Code(s): K21.9 - Gastro-esophageal reflux disease without esophagitis Plan Short-acting beta agonist as needed Trelegy inhaler 200 mcg daily Epi pen as needed completed Azithromycin MWF stopped BUdesonide nebs BID Qnasl Astelin nasal spray Antihistamines Continue Xolair twice a month continue CPAP , needs supplies weight management Lung cancer screening program Follow-up in 6-8 months Medications: Refilled neomycin-polymyxin B-dexameth 3.5mg/mL-10,000 unit/mL-0.1 % 1 drp ophthalmic (eye) Q12H 5 mL 0RF 10 days Coding Level of Care Code Est Pt Level 4 (48551) Diagnoses Severe persistent asthma without complication J45.50 Asthma complication type: uncomplicated Asthma persistence: persistent Asthma severity: severe Chronic allergic rhinitis J30.9 GEORGIE (obstructive sleep apnea) G47.33 Gastroesophageal reflux disease without esophagitis K21.9 Esophagitis presence: without esophagitis Time Spent (min) 16
== END 2024-02-03 10:36 | disposition home or self-care (01) ==
PROVIDERS: PCP Registered Nurse; Visit Provider Hospitalist
DX: J45.50 Severe persistent asthma, uncomplicated (principal); J30.9 Allergic rhinitis, unspecified; G47.33 Obstructive sleep apnea (adult) (pediatric); K21.9 Gastro-esophageal reflux disease without esophagitis
CPT/HCPCS: 99214

== ENCOUNTER → 2024-02-03 10:10 | Outpatient (BNVA) | payer MEDICAID, SELFPAY | PROVIDERS: PCP Registered Nurse; Visit Provider Hospitalist | DX: J45.50 Severe persistent asthma, uncomplicated (principal); J30.9 Allergic rhinitis, unspecified; G47.33 Obstructive sleep apnea (adult) (pediatric); K21.9 Gastro-esophageal reflux disease without esophagitis | CPT/HCPCS: 99212 ==

== ENCOUNTER 2024-05-29 09:32 | Emergency (ER) | payer OTHER, SELFPAY ==
--- NOTE | ~2024-05-29 | CT_ITS ---
EXAMINATION: CT HEAD WITHOUT IV CONTRAST HISTORY: head injury, pain. TECHNIQUE: Unenhanced helical CT of the head was performed per standard departmental protocol. Coronal and sagittal reformats of the head were also evaluated. One or more of the following techniques was used for dose reduction: Automated exposure control, adjustment of the mA and/or kV according to patient size, use of iterative reconstruction technique. DLP: 532 mGy-cm COMPARISON: Comparison is made with the prior examination dated 10/30/2023. FINDINGS: BRAIN: The brain parenchyma is unremarkable. There is normal vaughn/white differentiation. The ventricular system is normal in size and configuration. There is no mass effect or midline shift. No intra- or extra-axial fluid collections are identified. SINUSES: The visualized paranasal sinuses are clear. The mastoid air cells and middle ear cavities are well pneumatized. ORBITS: The visualized orbits are unremarkable. BONES/SOFT TISSUES: The extracranial soft tissues are unremarkable. The calvarium is intact. No suspicious lytic or sclerotic lesions. CT/CT head/brain wo IV con IMPRESSION: No acute intracranial abnormality. Electronically signed by: Ridge Ugalde MD 05/29/2024 01:26 PM EDT
--- NOTE | ~2024-05-29 | CT_ITS ---
EXAMINATION: CT CERVICAL SPINE WITHOUT IV CONTRAST HISTORY: head injury, neck pain. TECHNIQUE: Helical CT of the cervical spine was performed per standard departmental protocol. Coronal and sagittal reformatted images were also evaluated. One or more of the following techniques was used for dose reduction: Automated exposure control, adjustment of the mA and/or kV according to patient size, use of iterative reconstruction technique. DLP: 514 mGy-cm COMPARISON: There are no prior studies for comparison. FINDINGS: CERVICAL SPINE: There is straightening of the normal cervical lordosis. The vertebral bodies maintain normal height without evidence of fracture or subluxation. There is moderate degenerative disc disease at the C5-6 and C6-7 levels, with disc space narrowing and osteophyte formation. There is uncovertebral joint hypertrophy at these levels likely causing bilateral neural foraminal narrowing. Evaluation for disc pathology is limited by lack of intrathecal contrast material. BRAIN: The visualized portion of the brain is unremarkable. SINUSES: The visualized paranasal sinuses, mastoid air cells and middle ear cavities are unremarkable. LUNG APICES: The visualized lung apices are clear. SOFT TISSUES: The visualized paraspinal soft tissues are unremarkable. CT/CT cervical spine wo IV con IMPRESSION: Straightening of the normal cervical lordosis. No evidence of fracture or subluxation. Degenerative changes as described. Electronically signed by: Ridge Ugalde MD 05/29/2024 01:30 PM EDT
--- NOTE | ~2024-05-29 | XR_ITS ---
EXAMINATION: XR CHEST CLINICAL INFORMATION: fall COMPARISON: October 30, 2023. TECHNIQUE: 2 views of the chest were obtained. FINDINGS: No consolidation, pleural effusion or pneumothorax. No hyperinflation. Cardiomediastinal silhouette size is normal. Mild multilevel thoracic spondylosis. Patient's large body habitus. XR/XR chest 2V IMPRESSION: No acute airspace disease. Electronically signed by: Scott Neal MD 05/29/2024 10:13 AM EDT
[2024-05-29 09:48] VITALS: BP 128/63; PULSE 77; RESP 18; TEMP 36.3; O2SAT 97; BMI 41.5
[2024-05-29 10:00] VITALS: BP 135/72; PULSE 66; RESP 18; TEMP 36.6; O2SAT 99
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
[2024-05-29 14:03] VITALS: BP 139/78; PULSE 60; RESP 15; TEMP 36.3; O2SAT 97
[2024-05-29] MEDS: Ketorolac Tromethamine 30 MG/ML VIAL IM (14:07)
[2024-05-29] MEDS: Acetaminophen 325 MG TABLET 975 MG PO (14:07)
[2024-05-29 14:14] VITALS: BP 139/78; PULSE 60; RESP 15; TEMP 36.3; O2SAT 97
--- OUTSIDE RECORDS SUMMARY | 2024-05-29 15:27 | XMS_ITS | Encounter Summary ---
Author Organization [employer] Address [address] [place] [address] Care Team Providers Care Top Knitter Name Role Phone Lilian Mcclellan CHIEF WELLNESS OFFICER Primary Care Provider [phone] Mono Huggins CHIEF WELLNESS OFFICER Unavailable Unavailable Encounter Details Date Type Department Care Team (Late st Contact Info) Description 01/11/2023 Abstract [facility] MEDICINE [address] [place], [place] [id number] Patricia Arreaga Social History Tobacco Use Types Packs/Day Years Used Date Smoking Tobacco: Former Cigarettes Smokeless Tobacco: Never Alcohol Use Standard Drinks/Week Comments Never 0 (1 standard drink = 0.6 oz pur e alcohol) Depression Answer Date Recorded Patient Health Questionnaire-9 Score 0 11/08/2022 Housing Stability Answer Date Recorded What is your housing situation today? I have donna hernandez 12/10/[address] you li ve. Do you have problems with any of the following? None of the above 12/10/2022 Food Insecurity Answer Date Recorded Within the past 12 months, y ou worried that your food would run out before you got money to buy more: Never True 12/10/2022 Within the past 12 months,th e food you bought just didn't last and you didn't have enough money to get more: Never True Transportation Answer Date Recorded In the past 12 months, has l ack of transportation kept you from medical appts, meetings, work or from getting things needed for daily living? No 12/10/2022 Utilities Answer Date Recorded In the past 12 months, has t he electric, gas, oil or water company threatened to shut off services in your home? No 12/10/2022 Depression Answer Date Recorded Patient Health Questionnaire-2 Score 0 11/08/2022 Comments Unknown Sex and Gender Information Value Date Recorded Sex Assigned at Female 12/25/2021 10:15 AM EDT Legal Sex Female 10:15 AM EDT Gender Identity Female 12/25/2021 10:15 AM EDT Sexual Orientation Don't know 12/25/2021 10 :15 AM EDT documented as of this encounter Plan of Treatment Not on file documented as of this encounter Procedures Procedure Name Priority Date/Time Associated Diagnosis Comments COLONOSCOPY Routine 09/29/2019 documented in this encounter Results * Colonoscopy (09/29/2019) Colonoscopy Normal Normal Narrative Patricia Arreaga - 09/29/2019 Repeat in 5 year due to history of tubular adenomas us Historical Provider HEALTH MAINTENANCE Final Result documented in this encounter Visit Diagnoses Not on filedocumented in this encounter Additional Health Concerns Assessment Noted Time PHQ-9 Depression Total Score: 0 11/09/19 23 10:07 AM EDT documented as of this encounter Care Teams Top Knitter Relationship Specialty Start Date End Date Lilian Mcclellan FNP [address] [place] [address] PCP - General Family Medicine 04/26/22 Mono Huggins FNP [address] [place] [address] Nurse Practitioner Family Medicine 01/21/23 Maureen Gastelum Personnel AssociateKeyboard Instrument Tuner 02/11/24 documented as of this encounter
--- OUTSIDE RECORDS SUMMARY | 2024-05-29 15:27 | XMS_ITS | Encounter Summary ---
Author Organization [employer] Address [address] [place] [address] [address] [place] [address] Care Team Providers Care Hr Representative Name Role Phone Riddle [facility] Primary Care Provider [phone] Mono Huggins Unavailable Unavailable Reason for Visit * Reason Onset Date Comments Results 08/22/2022 TB Test Encounter Details Date Type Department Care Team ([facility] st Contact Info) Description 08/22/2022 Telephone [facility] MED[facility]INE [address] [place] [address] Riddle [place], [facility] [address] [place] [address] Results (TB Test) Social History Tobacco Use Types Packs/Day Years Used Date Smoking Tobacco: Former Cigarettes Smokeless Tobacco: Never Alcohol Use Standard Drinks/Week Comments Never 0 (1 standard drink = 0.6 oz pur e alcohol) PHQ-2 Answer Date Recorded Patient Health Questionnaire-2 Score 0 08/09/2022 Comments Unknown Sex and Gender Information Value Date Recorded Sex Assigned at Female 12/25/2021 10:15 AM EDT Legal Sex Female 10:15 AM EDT Gender Identity Female 12/25/2021 10:15 AM EDT Sexual Orientation Don't know 12/25/2021 10 :15 AM EDT documented as of this encounter Miscellaneous Notes * Telephone Encounter - Vic Quintanilla RN - 08/23/2022 11:48 AM EDT T/C to [phone] through [facility] id - [id number] for TB test, pt. Informed that clinic does not receive result yet, clinic will call once result is available. Pt. Verbally agreed and understood. * Telephone Encounter - Anabella Eric - 08/22/2022 1:47 PM EDT Tc from patient requesting tb test results. Patient speaks serbian documented in this encounter Plan of Treatment Not on file documented as of this encounter Visit Diagnoses Not on filedocumented in this encounter Additional Health Concerns Assessment Noted Time PHQ-9 Depression Total Score: 3 08/10/19 23 10:21 AM EDT documented as of this encounter Care Teams Hr Representative Relationship Specialty Start Date End Date Lilian Mcclellan FNP [address] [place] [id number] PCP - General Family Medicine 04/26/22 Mono Huggins FNP [address] [place] [id number] Nurse Practitioner Family Medicine 01/21/23 Maureen Gastelum FlosserSports Lawyer 02/11/24 documented as of this encounter
--- OUTSIDE RECORDS SUMMARY | 2024-05-29 15:27 | XMS_ITS | Clinical Summary ---
Author Organization [employer] Address [address] [place] [address] [address] [place] [address] Care Team Providers Care Inseamer Name Role Phone Lilian Mcclellan GMAT INSTRUCTOR Primary Care Provider [phone] Mono Huggins GMAT INSTRUCTOR Unavailable Unavailable Allergies Active Allergy Reactions Criticality Noted Date Comments Penicillin V 12/03/1997 Other Reaction(s): rash Penicillins Rash Low 03/21/2022 Medications * This document contains information received from the source organization and may not represent a complete record from that organization. levalbuterol (Xopenex) 45 MCG/ACT inhaler INHALE 2 PUFFS BY MOUTH EVERY 6 HOURS NEEDED FOR SHORTNESS OF BREATH OR WHEEZING FOR 30 DAYS 023 Active levocetirizine (Xyzal) 5 MG tablet Take 5 mg by mouth in the morning. 023 Active furosemide (Lasix) 20 MG tablet Take 20 mg by mouth in the morning. 023 Active sucralfate (Carafate) 1 g tablet TAKE 1 TABLET BY MOUTH TWICE DAILY IN THE MORNING AND IN THE EVENING 023 Active pantoprazole (ProtoNix) 40 MG EC tablet TAKE 1 TABLET BY MOUTH TWICE DAILY IN THE MORNING AND AT BEDTIME 023 Active minoxidil (Rogaine) 2 % external solutionIndicatio ns:Hair loss Apply topically 2 times daily. 60 mL 2 023 Active hydrocortisone 2.5 % creamIndications: Bug bite, initial encounter Apply topically 2 times daily. 20 g 023 Active azelastine (Astelin) 0.1 % nasal spray Administer 1 spray into each nostril 2 times daily. Use in each nostril as directed 30 mL 3 023 Active terbinafine (LamISIL) 1 % creamIndications: Tinea pedis of both feet APPLY TO THE AFFECTED AREA(S) TOPICALLY TWICE DAILY 30 g 1 023 Active baclofen (Lioresal) 10 MG tablet Take one tablet TID PRN 30 tablet 024 Active Incruse Ellipta 62.5 MCG/ACT aerosol powderIndications :Severe persistent asthma without complication INHALE 1 PUFF EVERY DAY AT THE SAME TIME 30 each 11 024 Active metoprolol tartrate (Lopressor) 50 MG tablet Take 50 mg by mouth. 024 Active triamcinolone (Nasacort) 55 MCG/ACT nasal inhalerIndication s:Severe persistent asthma with acute exacerbation Administer 2 sprays into each nostril Once per day. 16.5 g 11 024 2024 Active lidocaine (Lidoderm) 5 % patchIndications: Chronic right shoulder pain APPLY 1 PATCH TOPICALLY TO SKIN, LEAVE ON FOR 12 HOURS AND OFF FOR 12 HOURS DIRECTED 30 patch 1 024 Active triamcinolone (Kenalog) 0.1 % ointmentIndicatio ns:Groin rash APPLY TOPICALLY TO THE AFFECTED AREA(S) TWICE DAILY DIRECTED FOR FOURTEEN DAYS 15 g 1 025 Active albuterol (2.5 MG/3ML) 0.083% nebulizer solutionIndicatio ns:Restrictive lung disease INHALE 1 AMPULE USING A NEBULIZER EVERY 4 HOURS NEEDED FOR WHEEZING 90 mL 1 025 Active ezetimibe (Zetia) 10 MG tablet TAKE 1 TABLET BY MOUTH AT BEDTIME 90 tablet 025 Active clotrimazole (Lotrimin) 1 % creamIndications: Groin rash APPLY TOPICALLY TWICE DAILY FOR 28 DAYS 30 g 2 025 Active Tirzepatide-Weigh t Management (Zepbound) 2.5 MG/0.5ML solution auto-injectorIndi cations:Class 3 severe obesity due to excess calories with serious comorbidity and body mass index (BMI) of 40.0 to 44.9 in adult ([facility]) Inject 0.5 mL (2.5 mg) under the skin 1 (one) time per week. 2 mL 1 025 Active naphazoline-pheni ramine (Naphcon-A) 0.025-0.3 % ophthalmic solutionIndicatio ns:Viral conjunctivitis Administer 2 drops into both eyes if needed in the morning, at noon, in the evening, and at bedtime for irritation. 15 mL 025 Active losartan (Cozaar) 25 MG tablet TAKE 1 TABLET BY MOUTH DAILY LAB 1 WEEK AFTER STARTING 025 Active hydrOXYzine HCl (Atarax) 25 MG tabletIndications :Anxiety Take one tab during the day, may take two tabs at bedtime for anxiety as needed. 90 tablet 025 Active clonazePAM (KlonoPIN) 0.5 MG tabletIndications :Anxiety Take 1 tab orally at bedtime, and may occasionally take 1 extra tab during the day as needed for anxiety 40 tablet 025 Active Tirzepatide-Weigh t Management (Zepbound) 5 MG/0.5ML solution auto-injectorIndi cations:Obesity, unspecified class, unspecified obesity type, unspecified whether serious comorbidity present Inject 0.5 mL (5 mg) under the skin 1 (one) time per week. 2 mL 025 Active hydrOXYzine HCl (Atarax) 25 MG tabletIndications :Anxiety Take one tab during the day, may take two tabs at bedtime for anxiety as needed. 90 tablet 1 024 2024 Discontinued(R eorder (will not trigger notification to Pharmacy)) clonazePAM (KlonoPIN) 0.5 MG tabletIndications :Anxiety Take 1 tab orally at bedtime, and may occasionally take 1 extra tab during the day as needed for anxiety 40 tablet 1 025 2024 Discontinued(R eorder (will not trigger notification to Pharmacy)) Active Problems Problem Noted Date Diagnosed Date Hypertension 05/18/2024 Groin rash 12/31/2023 Assessment & Plan (12/31/2023 5:43 PM EST): Likely candidiasis. -prescribed clotrimazole cream 12/31/23 as well as a barrier cream to use afterwards. -discussed wearing loose non chafing clothes. Vasovagal syncope 11/05/2023 Assessment & Plan (11/05/2023 11:31 AM EDT): - resolved, most likely related to dehydration after pneumonia status post Covid - continue hydration, no additional workup needed Diarrhea 11/05/2023 Assessment & Plan (11/05/2023 11:30 AM EDT): - unclear if infectious or related to antibiotics - dicussed with pt regarding proper hydration and advance to BRAT diet in 1-2 days if tolerated - start probiotics with meals - use Imodium only if symptoms do not improve with above treatments - check BMP Weakness 11/05/2023 Assessment & Plan (11/05/2023 1:38 PM EDT): Likely related to diarrhea/DHT on a patient that is recovering form covid and Pneumonia Advised to rest at home, complete abs, increase hydration, take Imodium as above. I advised to be out of work until late next week, letter given to patient Use albuterol for asthma. RTC prn Pulmonary hypertension 07/16/2023 Assessment & Plan (11/05/2023 11:21 AM EDT): - will order BNP to r/o CHF - continue Lasix and continue BMP Diastolic dysfunction without heart failure 06/26 Fibromyalgia 07/05/2022 Assessment & Plan (11/18/2022 4:37 PM EDT): ?? INCREASE cymbalta to 40mg b.i.d ?? Encouraged daily exercise, regular sleep and increased hydration Assessment & Plan (07/08/2022 8:17 PM EDT): ?? Continue current medication regimen ?? Encouraged pt to increase daily exercise routine Lower extremity edema 06/12/2022 Overview (06/12/2022): ?? Lasix 20mg daily Family history of cancer 06/12/2022 Overview (06/12/2022): ?? Referred for genetic screening 05/2022 Mixed hyperlipidemia 06/12/2022 Overview (06/12/2022): ?? ASCVD-2.9% 05/2022 ?? No cholesterol lowering medication indication ?? Lifestyle measures only Healthcare maintenance 05/09/2022 Overview (06/17/2023): Mammo: 01/2021; negative Has upcoming appt. Pap: Followed by [facility], Dr. Edie Robbins-scope: 2019, repeat 5 years BMD: Routine age 67 LDCT done 08/24/22 was Lung RADS 2 - plan is for yearly LDCT HCV Screen: Neg 05/2022 HIV Screen: Neg 05/2022 Screening Labs: A1c 5.6 05/2022 Severe persistent asthma 05/09/2022 Overview (06/12/2022): ?? [place] [facility] [place] ?? Severe allergic asthma ?? Incruse Ellipta ?? Levalbuterol Assessment & Plan (11/18/2022 4:33 PM EDT): ?? Well controlled ?? Follow as scheduled with pulmonology ?? Will refill dymista which patient found better for allergy mngmt Restrictive lung disease 04/30/2018 Anxiety 10/15/2017 Assessment & Plan (05/28/2023 10:35 AM EDT): Doing well. Continue current medications: Duloxetine 30 mg BID, Hydroxyzine 25 mg 2 tabs BID, and 1-2 q 6 h during the day if needed; plus Clonazepam 0.5 mg at bedtime and may occasionally take another during the day as needed (total #40 per month). Was referred for therapy, pt given the phone number to call and F/u on status. As this provider will be retiring, she will now F/U with her PCP for continued psychiatric medication management. We will facilitate appt with PCP to discuss transition of care and to F/u chronic conditions. For any questions or concerns, she should call [facility] BH Department and/or PCP. I have wished her well. She agrees with the plan. Assessment & Plan (04/01/2023 11:38 AM EST): Doing much better. Continue current medications: Duloxetine 30 mg BID, Hydroxyzine 25 mg 2 tabs BID, and 1-2 q 6 h during the day if needed; plus Clonazepam 0.5 mg at bedtime and may occasionally take another during the day as needed (total #40 per month). Was referred for therapy, pt given the phone number to call and F/u on status. On 11/08/2022 provider informed pt that I would be retiring, but we would make every effort to ensure smooth transition of care. Meanwhile, F/U with me in 2 months. She agrees with the plan. Assessment & Plan (01/28/2023 10:07 AM EST): Doing much better. Continue current medications: Duloxetine 30 mg BID, Hydroxyzine 25 mg 2 tabs BID, and 1-2 q 6 h during the day if needed; plus Clonazepam 0.5 mg at bedtime and may occasionally take another during the day as needed (total #40 per month). Will refer again for therapy. F/U with me in 2 months. She agrees with the plan. On 11/08/2022 provider informed pt that I would be retiring in approx 1 year, but we would make every effort to ensure smooth transition of care. Assessment & Plan (11/08/2022 11:08 AM EDT): Doing much better. Continue current medications: Duloxetine 30 mg BID, Hydroxyzine 25 mg 2 tabs BID, and 1-2 q 6 h during the day if needed; plus Clonazepam 0.5 mg at bedtime and may occasionally take another during the day as needed (total #40 per month). Will refer again for therapy. F/U with me in 2-3 months. She agrees with the plan. Today 11/08/2022 provider informed pt that I would be retiring in approx 1 year, but [facility] should have new provider in place to continue her care. Assessment & Plan (08/09/2022 11:16 AM EDT): Doing much better. Continue current medications: Duloxetine 30 mg BID, Hydroxyzine 25 mg 2 tabs BID, and 1-2 q 6 h during the day if needed; plus Clonazepam 0.5 mg at bedtime and may occasionally take another during the day as needed (total #40 per month). Recommend calling to F/U on therapy referral, nd F/U with me in 2-3 months. She agrees with the plan. Assessment & Plan (06/14/2022 9:27 AM EDT): Increasing anxiety/depression r/t problems with her son. Recently started on Duloxetine 30 mg BID by PCP for Fibromyalgia. Reviewed with pt that this medication can also help depression and anxiety. Urged to take it even if not on empty stomach. Start with 1 capsule in am, then after a few weeks add second capsule for total daily dose of 60 mg. Continue Hydroxyzine 25 mg 2 tabs BID, and 1-2 q 6 h during the day if needed; plus Clonazepam 0.5 mg at bedtime and may occasionally take another during the day as needed (total #40 per month). F/U with me in 6-8 weeks. She agrees with the plan. Assessment & Plan (04/12/2022 9:43 AM EST): Despite current concern about her son, still feels meds are working well. Continue Hydroxyzine 25 mg 2 tabs BID, and 1-2 during the day if needed; plus Clonazepam 0.5 mg at bedtime and may occasionally take another during the day as needed (total #40 per month). F/U with me in 2 months. She agrees with the plan. Palpitations 10/15/2017 Overview (06/12/2022): ?? [place] [facility] [place] ?? Metoprolol XR 25mg daily Assessment & Plan (11/18/2022 4:26 PM EDT): - No current sx during office visit - 2020 echo with normal EF. Mild elevation in LV filling pressure. -2017 conveyor monitor with PACs and atrial tachycardia - Will submit referral to [facility] cardiology per patient request - Continue daily metoprolol Obesity 04/09/2017 Knee pain 12/04/2016 Keratosis 05/11/2016 Seborrheic keratosis 05/11/2016 Gastroesophageal reflux disease 06/06/2015 Overview (05/09/2022): [place] [facility] Shoulder pain 06/06/2015 Chronic pain 06/06/2015 Tobacco dependence syndrome 07/18/2012 Overview (05/09/2022): Quit 2 years ago Allergic rhinitis 07/18/2012 Resolved Problems Problem Noted Date Diagnosed Date Resolved Date Pneumonia of right middle lo be due to infectious organism 11/05/2023 04/06/2024 Assessment & Plan (11/05/2023 11:26 AM EDT): - seems to be improving but still has significant bronchial constriction - complete antibiotics x 2 more days - use Albuterol nebs Q 6 hours x 3 more days if no improvement, she will call back, may need Prednisone - take Mucinex 1200 mg BID for 3 more days - continue Incruse inhaler - f/u with pulmonology Encounters * This document contains information received from the source organization and may not represent a complete record from that organization. Date Type Department Care Team Description 05/29/2024 Orders Only [facility] External Provider, [facility] 05/13/2024 Telephone [facility] MEDICINE [address] [place] [address] Lilian Mcclellan FNP Prior Authorization ([facility] Request: Zepbound) 05/12/2024 Refill [facility] MEDICINE [address] [place] [address] Lilian Mcclellan FNP Class 3 severe obesity due to excess calories with serious comorbidity and body mass index (BMI) of 40.0 to 44.9 in adult ([facility]) 05/08/2024 Population Health Risk Score [facility] [address] [id number] Provider, Population Health Generic 05/06/2024 Refill [facility] MEDICINE [address] [place] [address] Lilian Mcclellan FNP Obesity, unspecified class, unspecified obesity type, unspecified whether serious comorbidity present 05/05/2024 Travel 04/17/2024 Telephone [facility] [address] [place] [address] Lilian Mcclellan FNP 04/06/2024 1:15 PM EST Office Visit [facility] OPTOMETRY [address] [place] [address] Cindy Dumas, OD Viral conjunctivitis (Primary Dx) 04/06/2024 11:30 AM EST Office Visit [facility] MEDICINE [address] [place] [address] Jaqueline Parikh ANP Itch of eye (Primary Dx); Viral conjunctivitis; Non-seasonal allergic rhinitis due to other allergic trigger; Elevated blood pressure reading without diagnosis of hypertension; Acute conjunctivitis of both eyes, unspecified acute conjunctivitis type 04/06/[address] [address] Shannan Robles, hand silvering supervisor Question 04/06/2024 Travel 03/31/2024 3:20 PM EST Office Visit [facility] WALK-IN CENTER [address] [place] [phone] Mya Dimas MD Viral conjunctivitis (Primary Dx); Severe persistent asthma with acute exacerbation 03/31/2024 Orders Only [facility] MED & PEDS [address] [place], [place] [phone] Mya Dimas MD Viral conjunctivitis (Primary Dx) 03/31/2024 Telephone [facility] [address] [place] [id number] Lilian Mcclellan FNP In person advise 03/27/[address] [address] [place] Nurse Triage 03/17/2024 Orders Only [address] [address] Sun King MD Diastolic dysfunction without heart failure (Primary Dx) 03/17/[address] [address] Lilian Mcclellan FNP 03/10/[address] [address] [facility] Author[facility] ( [facility] Request: Zepbound) 03/09/2024 1:00 PM EST Telemedicine [facility] MEDICINE [address] [place] [address] Lilian Mcclellan [facility] Class 3 severe obesity due to excess calories with serious comorbidity and body mass index (BMI) of 40.0 to 44.9 in adult ([facility]) (Primary Dx); Dietary counseling; Exercise counseling 03/09/2024 Travel 03/09/2024 Refill [facility]ALK[facility] [address] [place] [address] Ludivina Márquez MD Groin rash 03/08/2024 Refill [facility] MEDICINE [address] [place] [address] [facility] 03/02/2024 Refill [facility] MEDICINE [address] [place] [address] [place] [facility] Groin rash; Restrictive lung disease from Last 3 Months Immunizations Name Administration Dates Next Due Influenza injectable quadriv alent IIV4 with preservative 12/25/2016 Influenza injectable quadrivalent preservative f ree 01/09/2019,01/13/2016 Influenza, IIV3, injectable 01/05/2014 Pneumococcal Conjugate PCV 20 2022 Pneumococcal Polysaccharide PPSV23 08/18/2012 Tdap 10/18/2022,05/28/2012 Family History Medical History Relation Name Comments Colon cancer Father's Brother Two brother s with CRC Lymphoma Father's Brother Lymphoma Mother's Sister Relation Name Status Comments Father's Brother Mother's Sister Social History Tobacco Use Types Packs/Day Years Used Date Smoking Tobacco: Former Cigarettes Passive Smoke Exposure: Past Smokeless Tobacco: Never Tobacco Cessation:Counseling Given: Not Answered Alcohol Use Standard Drinks/Week Comments Never 0 (1 standard drink = 0.6 oz pur e alcohol) Depression Answer Date Recorded Patient Health Questionnaire-9 Score 0 01/15/2024 Patient Health Questionnaire-9 Score 0 01/15/2024 Last PHQ-9: Questionnaire Data Not on file 1 03/16/2023 Housing Stability Answer Date Recorded What is your housing situation today? I have donna hernandez 01/07/[address] you li ve. Do you have problems with any of the following? None of the above 01/07/2024 Food Insecurity Answer Date Recorded Within the past 12 months, y ou worried that your food would run out before you got money to buy more: Never True 01/07/2024 Within the past 12 months,th e food you bought just didn't last and you didn't have enough money to get more: Never True 01/2024 Transportation Answer Date Recorded In the past 12 months, has l ack of transportation kept you from medical appts, meetings, work or from getting things needed for daily living? No 01/07/2024 Utilities Answer Date Recorded In the past 12 months, has t he electric, gas, oil or water company threatened to shut off services in your home? Yes 01/07/2024 Depression Answer Date Recorded Patient Health Questionnaire-2 Score 0 01/15/2024 Internet Access Answer Date Recorded Internet Access Q1 I am not sure 01/07/2024 Internet Access Q2 Not on file 01/07/2024 Comments Unknown Sex and Gender Information Value Date Recorded Sex Assigned at Female 12/25/2021 10:15 AM EDT Legal Sex Female 10:15 AM EDT Gender Identity Female 12/25/2021 10:15 AM EDT Sexual Orientation Don't know 12/25/2021 10 :15 AM EDT Last Filed Vital Signs Vital Sign Reading Time Taken Comments Blood Pressure 142/90 04/06/2024 11:41 AM EST Pulse 70 04/06/2024 11:17 AM EST Temperature 36.9 ??C (98.4 ??F) 04/06/2024 11:[address] Respiratory Rate 14 04/06/2024 11:17 AM EST Oxygen Saturation 96% 04/06/2024 11:17 AM EST Inhaled Oxygen Concentration - - Weight 95.3 kg (210 lb) 04/06/2024 11:17 AM EST Height 149.9 cm (4' 11 ) 03/31/2024 4:05 PM EST Body Mass Index 42.41 03/31/2024 4:05 PM EST Plan of Treatment Health Maintenance Due Date Last Done Comments CT Colonography 1960 FIT DNA/Cologuard 1960 FIT 1960 FOBT 1960 Sigmoidoscopy 1960 Alcohol/Substance Use Screening 1974 Pap Smear 08/28/1983 Zoster Vaccines (1 of 2) 2012 Hepatitis B Vaccines (1 of 3 - Risk 3-dose series) 2022 RSV Patients and Patients Aged 60 years or older (1 - Risk 60-74 years 1-dose series) 2022 Mammogram 02/20/2023 02/20/2021, 02/26, 03/19/2020 COVID-19 Vaccine ( season) 2023 05/11/2020 Influenza Vaccine (#1) 2023 9, 12/25/2016, 01/13/2016, Additional history exists Colonoscopy 09/28/2024 09/29/2019 Colorectal Cancer Screening 09/28/2024 SDOH Screening 01/06/2025 01/07/2024 Depression Screening 01/14/2025 01/15/2024, 01/15/20 24 Tobacco Screening 05/04/2025 05/04/2024 Cervical Cancer Screening 12/28/2025 HPV/Cotest 12/28/2025 12/28/2020, 12/28/2020 Lipid Panel 06/01/2027 05/31/2022, 11/26, 03/29/2021, Additional history exists DTaP/Tdap/Td Vaccines (3 - Td or Tdap) 10/18/2032 10/18/2022, 05/28/2012 HIV Screening Completed 05/31/2022, 12/30/2020 Hepatitis C Screening Completed 05/31/2022, 021 Pneumococcal Vaccine: 50+ Years Completed 2022, 08/18/2012 HIB Vaccines Aged Out No longer eligi ble based on patient's age to complete this topic HPV Vaccines Aged Out No longer eligi ble based on patient's age to complete this topic Hepatitis A Vaccines Discontinued IPV Vaccines Aged Out No longer eligi ble based on patient's age to complete this topic Meningococcal Vaccine Aged Out No isabel bradley eligible based on patient's age to complete this topic RSV under 20 months Aged Out No longe r eligible based on patient's age to complete this topic Rotavirus Vaccines Aged Out No longer eligible based on patient's age to complete this topic Procedures Procedure Name Priority Date/Time Associated Diagnosis Comments CT CERVICAL SPINE WO CONTRAST Routine 05/29/2024 12:[address] HEAD WO CONTRAST Routine 05/29/2024 1 2:23 PM EDT XR CHEST 2 VIEWS Routine 05/29/2024 9:53 AM EDT HEPATITIS C AB W/REFL TO HCV RNA, QN, PCR Routine 05/31/2022 8:50 AM EDT Healthcare maintenance HIV 1/2 ANTIGEN/ANTIBODY, FOURTH GENERATION W/RFL Routine 05/31/2022 8:50 AM EDT Healthcare maintenance LIPID PANEL, STANDARD Routine 05/31/2022 8:50 AM EDT Class 3 severe obesity due to excess calories with serious comorbidity and body mass index (BMI) of 40.0 to 44.9 in adult ([facility]) MAMMOGRAM GENERIC Routine 02/20/2021 10: 24 AM EST ZZZ HISTORICAL HPV E6/E7 RFLX BRIT 16 18/45 Routine 12/28/2020 11:14 AM EDT HM COLONOSCOPY Routine 09/29/2019 from Last 3 Months or Most Recently Relevant to Health Maintenance Results * CT Cervical Spine w/o Contrast (05/29/2024 12:46 PM EDT) Anatomical Region Laterality Modality Spine, C-spine Computed Tomogra phy 05/29/2024 12:4 6 PM EDT Narrative 05/29/2024 1:33 PM EDT ? [facility] ?[address] ?[place] [address] ? CT Scan Report ? Signed ? Patient: Patel,Rita D ?MR#: [id number] ? : 1960 ?Acct:[id number] ? Age/Sex: 63 / F ?ADM Date: 04/04/25 ? Loc: HO.ED ? Attending Dr: ? Ordering Physician: Buffy Agosto ?? Date of Service: 05/29/24 ?? Procedure(s): CT cervical spine wo IV con ?? Accession Number(s): [id number] ? cc: Buffy Agosto; Lilian Mcclellan GMAT INSTRUCTOR ? Report Number: ?? [id number]: Total DLP = ??513.63 mGy-cm ?? EXAMINATION: CT CERVICAL SPINE WITHOUT IV CONTRAST ? HISTORY: head injury, neck pain. ? TECHNIQUE: ?? Helical CT of the cervical spine was performed per standard ?? departmental protocol. Coronal and sagittal reformatted images were ?? also evaluated. One or more of the following techniques was used for ?? dose reduction: Automated exposure control, adjustment of the mA and/or ?? kV according to patient size, use of iterative reconstruction technique. ? DLP: 514 mGy-cm ? COMPARISON: There are no prior studies for comparison. ? FINDINGS: ? CERVICAL SPINE: ??There is straightening of the normal cervical ?? lordosis. The vertebral bodies maintain normal height without evidence ?? of fracture or subluxation. There is moderate degenerative disc disease ?? at the C5-6 and C6-7 levels, with disc space narrowing and osteophyte ?? formation. There is uncovertebral joint hypertrophy at these levels ?? likely causing bilateral neural foraminal narrowing. Evaluation for ?? disc pathology is limited by lack of intrathecal contrast material. ? BRAIN: ??The visualized portion of the brain is unremarkable. ? SINUSES: The visualized paranasal sinuses, mastoid air cells and middle ?? ear cavities are unremarkable. ? LUNG APICES: The visualized lung apices are clear. ? SOFT TISSUES: ??The visualized paraspinal soft tissues are unremarkable. ? CT/CT cervical spine wo IV con ?? IMPRESSION: ?? Straightening of the normal cervical lordosis. No evidence of fracture ?? or subluxation. Degenerative changes as described. ? Electronically signed by: ??Ridge Ugalde MD ??05/29/2024 01:30 PM EDT ?? RP ? Dictated By: ?Ridge Ugalde MD ? Signed By: ?<Electronically signed by Ridge Ugalde MD in OV> ?05/29/24 1330 ? DD/ 1246 ? TD/TT: 05/29/24 1319 ? Air Box Tester: ? Procedure Note Donotclaytoninterpreter, Image - 05/29/[address] [address] [address] Scan Report Signed Patient: Rita Patel DMR#: [id number] : 1960Acct:[id number] Age/Sex: 63 / FADM Date: 05/29/24 Loc: HO.ED Attending Dr: Ordering Physician: Buffy Agosto Date of Service: 05/29/24 Procedure(s): CT cervical spine wo IV con Accession Number(s): [id number] cc: Buffy Agosto; [facility] Report Number: [id number]: Total DLP = 513.63 mGy-cm EXAMINATION: CT CERVICAL SPINE WITHOUT IV CONTRAST HISTORY: head injury, neck pain. TECHNIQUE: Helical CT of the cervical spine was performed per standard departmental protocol. Coronal and sagittal reformatted images were also evaluated. One or more of the following techniques was used for dose reduction: Automated exposure control, adjustment of the mA and/or kV according to patient size, use of iterative reconstruction technique. DLP: 514 mGy-cm COMPARISON: There are no prior studies for comparison. FINDINGS: CERVICAL SPINE: There is straightening of the normal cervical lordosis. The vertebral bodies maintain normal height without evidence of fracture or subluxation. There is moderate degenerative disc disease at the C5-6 and C6-7 levels, with disc space narrowing and osteophyte formation. There is uncovertebral joint hypertrophy at these levels likely causing bilateral neural foraminal narrowing. Evaluation for disc pathology is limited by lack of intrathecal contrast material. BRAIN: The visualized portion of the brain is unremarkable. SINUSES: The visualized paranasal sinuses, mastoid air cells and middle ear cavities are unremarkable. LUNG APICES: The visualized lung apices are clear. SOFT TISSUES: The visualized paraspinal soft tissues are unremarkable. CT/CT cervical spine wo IV con IMPRESSION: Straightening of the normal cervical lordosis. No evidence of fracture or subluxation. Degenerative changes as described. Electronically signed by: Ridge Ugalde MD 05/29/2024 01:30 PM EDT Dictated By: Ridge Ugalde MD Signed By: <Electronically signed by Ridge Ugalde MD in OV> 05/29/24 1330 DD/ 1246 TD/TT: 05/29/24 1319 Air Box Tester: [facility] External Provider IMG CT PROCEDURES Final Result * CT Head w/o Contrast (05/29/2024 12:23 PM EDT) Anatomical Region Laterality Modality Head, Neck Computed Tomogra phy 05/29/2024 12:2 3 PM EDT Narrative 05/29/2024 1:29 PM EDT ? [facility] ?[address] ?[place] [address] ? CT Scan Report ? Signed ? Patient: Rita Patel ?MR#: [id number] ? : 1960 ?Acct:[id number] ? Age/Sex: 63 / F ?ADM Date: 05/29/24 ? Loc: HO.ED ? Attending Dr: ? Ordering Physician: Buffy Agosto ?? Date of Service: 05/29/24 ?? Procedure(s): CT head/brain wo IV con ?? Accession Number(s): [id number] ? cc: Buffy Agosto; Lilian Mcclellan GMAT INSTRUCTOR ? Report Number: ?? [id number]: Total DLP = ??541.89 mGy-cm ?? EXAMINATION: CT HEAD WITHOUT IV CONTRAST ? HISTORY: head injury, pain. ? TECHNIQUE: ? Unenhanced helical CT of the head was performed per standard ?? departmental protocol. Coronal and sagittal reformats of the head were ?? also evaluated. One or more of the following techniques was used for ?? dose reduction: Automated exposure control, adjustment of the mA and/or ?? kV according to patient size, use of iterative reconstruction technique. ? DLP: 532 mGy-cm ? COMPARISON: Comparison is made with the prior examination dated ?? 10/30/2023. ? FINDINGS: ? BRAIN: ??The brain parenchyma is unremarkable. There is normal ?? vaughn/white differentiation. The ventricular system is normal in size ?? and configuration. ??There is no mass effect or midline shift. ??No ?? intra- or extra-axial fluid collections are identified. ? SINUSES: The visualized paranasal sinuses are clear. ??The mastoid air ?? cells and middle ear cavities are well pneumatized. ? ORBITS: The visualized orbits are unremarkable. ? BONES/SOFT TISSUES: The extracranial soft tissues are unremarkable. The ?? calvarium is intact. No suspicious lytic or sclerotic lesions. ? CT/CT head/brain wo IV con ?? IMPRESSION: ?? No acute intracranial abnormality. ? Electronically signed by: ??Ridge Ugalde MD ??05/29/2024 01:26 PM EDT ? Dictated By: ?Ridge Ugalde MD ? Signed By: ?<Electronically signed by Ridge Ugalde MD in OV> ?04/04/25 1326 ? DD/ 1223 ? TD/TT: 05/29/24 1319 ? Air Box Tester: ? Procedure Note Triciasaran, Image - 05/29/[address] [place] [address] [address] Scan Report Signed Patient: Rita Patel DMR#: [id number] : 1960Acct:[id number] Age/Sex: 63 / FADM Date: 05/29/24 Loc: HO.ED Attending Dr: Ordering Physician: Buffy Agosto Date of Service: 05/29/24 Procedure(s): CT head/brain wo IV con Accession Number(s): [id number] cc: Buffy Agosto; Lilian Mcclellan GMAT INSTRUCTOR Report Number: [id number]: Total DLP = 541.89 mGy-cm EXAMINATION: CT HEAD WITHOUT IV CONTRAST HISTORY: head injury, pain. TECHNIQUE: Unenhanced helical CT of the head was performed per standard departmental protocol. Coronal and sagittal reformats of the head were also evaluated. One or more of the following techniques was used for dose reduction: Automated exposure control, adjustment of the mA and/or kV according to patient size, use of iterative reconstruction technique. DLP: 532 mGy-cm COMPARISON: Comparison is made with the prior examination dated 10/30/2023. FINDINGS: BRAIN: The brain parenchyma is unremarkable. There is normal vaughn/white differentiation. The ventricular system is normal in size and configuration. There is no mass effect or midline shift. No intra- or extra-axial fluid collections are identified. SINUSES: The visualized paranasal sinuses are clear. The mastoid air cells and middle ear cavities are well pneumatized. ORBITS: The visualized orbits are unremarkable. BONES/SOFT TISSUES: The extracranial soft tissues are unremarkable. The calvarium is intact. No suspicious lytic or sclerotic lesions. CT/CT head/brain wo IV con IMPRESSION: No acute intracranial abnormality. Electronically signed by: Ridge Ugalde MD 05/29/2024 01:26 PM EDT RP Dictated By: Ridge Ugalde MD Signed By: <Electronically signed by Ridge Ugalde MD in OV> 05/29/24 1326 DD/ 1223 TD/TT: 05/29/24 1319 Air Box Tester: [facility] External Provider IMG CT PROCEDURES Final Result * XR Chest 2 Views (05/29/2024 9:53 AM EDT) Anatomical Region Laterality Modality Chest Radiographic Kenyetta ging 05/29/2024 9:53 AM EDT Narrative 05/29/2024 10:16 AM EDT ? [facility] ?[address] ?[place] [address] ?XRay Report ? Signed ? Patient: Patel,Rita D ?MR#: [id number] ? : 1960 ?Acct:[id number] ? Age/Sex: 63 / F ?ADM Date: 04/04/25 ? Loc: HO.ED ? Attending Dr: ? Ordering Physician: Generic ED Physician ?? Date of Service: 05/29/24 ?? Procedure(s): XR chest 2V ?? Accession Number(s): [id number] ? cc: Generic ED Physician; [facility] ? EXAMINATION: ?? XR CHEST ? CLINICAL INFORMATION: ?? fall ? COMPARISON: ?? October 30, 2023. ? TECHNIQUE: ?? 2 views of the chest were obtained. ? FINDINGS: ?? No consolidation, pleural effusion or pneumothorax. No hyperinflation. ?? Cardiomediastinal silhouette size is normal. ?? Mild multilevel thoracic spondylosis. ?? Patient's large body habitus. ? XR/XR chest 2V ?? IMPRESSION: ?? No acute airspace disease. ? Electronically signed by: ??Scott Neal MD ??05/29/2024 10:13 AM ?? EDT RP ? Dictated By: ?Scott Ram MD ? Signed By: ?<Electronically signed by Scott Priest MD in OV> ? 05/29/24 1013 ? DD/ 0953 ? TD/TT: 05/29/24 1002 ? Air Box Tester: ? Procedure Note Linnea Rosenberg - 05/29/[address] [address] XRay Report Signed Patient: Rita Patel DMR#: [id number] : 1960Acct:[id number] Age/Sex: 63 / FADM Date: 05/29/24 Loc: HO.ED Attending Dr: Ordering Physician: Generic ED Physician Date of Service: 05/29/24 Procedure(s): XR chest 2V Accession Number(s): [id number] cc: Generic ED Physician; [facility] EXAMINATION: XR CHEST CLINICAL INFORMATION: fall COMPARISON: October 30, 2023. TECHNIQUE: 2 views of the chest were obtained. FINDINGS: No consolidation, pleural effusion or pneumothorax. No hyperinflation. Cardiomediastinal silhouette size is normal. Mild multilevel thoracic spondylosis. Patient's large body habitus. XR/XR chest 2V IMPRESSION: No acute airspace disease. Electronically signed by: Scott Neal MD 05/29/2024 10:13 AM EDT Dictated By: Scott Ram MD Signed By: <Electronically signed by Scott Priest MDin OV> 05/29/24 1013 DD/ 0953 TD/TT: 05/29/24 1002 Air Box Tester: [facility] External Provider IMG XR PROCEDURES Final Result * Hepatitis C Antibody with Reflex to HCV, RNA, Quantitative, Real-Time PCR (05/31/2022 8:50 AM EDT) Pathologist [facility] Hepatitis C Antibody NON-REACT JAE NON-REACT JAE [employer] Index 0.02 <1.00 [employer] Comment: HCV antibody was non-reactive. There is no laboratory evidence of HCV infection. In most cases, no further action is required. However, if recent HCV exposure is suspected, a test for HCV RNA (test code 61698) is suggested. For additional information please refer to http://education.[employer]/faq/WOG45a8 (This link is being provided for informational/ educational purposes only.) Blood Venous blood specimen / Unknown 05/31/2022 8:50 AM EDT 05/31/2022 8:51 AM EDT Narrative [facility] - 06/01/2022 5:54 PM EDT FASTING:YES FASTING: YES [facility] [employer] [facility] [employer] GMAT INSTRUCTOR LAB BLOOD ORDERABLES Final Re sult [facility] [address], [place] [address] [facility] [employer] [address] [place] [address] * HIV-1/2 Antigen and Antibodies, Fourth Generation, with Reflexes (05/31/2022 8:50 AM EDT) Pathologist [facility] HIV Antigen/Antibody, 4th Generation NON-REAC TIVE NON-REAC TIVE [facility] [employer] Comment: HIV-1 antigen and HIV-1/HIV-2 antibodies were not detected. There is no laboratory evidence of HIV infection. PLEASE NOTE: This information has been disclosed to you from records whose confidentiality may be protected by state law. ??If your state requires such protection, then the state law prohibits you from making any further disclosure of the information without the specific written consent of the person to whom it pertains, or as otherwise permitted by law. A general authorization for the release of medical or other information is NOT sufficient for this purpose. ?? For additional information please refer to http://education.[employer]/faq/AYJ278 (This link is being provided for informational/ educational purposes only.) The performance of this assay has not been clinically validated in patients less than 2 years old. Blood Venous blood specimen / Unknown 05/31/2022 8:50 AM EDT 05/31/2022 8:51 AM EDT Narrative [facility] - 06/01/2022 5:54 PM EDT FASTING:YES FASTING: YES [facility] LAB BLOOD ORDERABLES Final Re sult [facility] [address], [place] [address] [facility] [employer] [address] [place] [address] * (ABNORMAL) Lipid Panel, Standard (05/31/2022 8:50 AM EDT) Cholesterol, Total 218(H) <200 mg/dL [facility] [employer] [facility] HDL Cholesterol 62 > OR = 50 mg/dL [facility] Triglycerides 206(H) <150 mg/dL [employer] Comment: If a non-fasting specimen was collected, consider repeat triglyceride testing on a fasting specimen if clinically indicated. Griselda et al. J. of Clin. Lipidol. 2015;9:129-169. LDL Cholesterol 124(H) mg/dL (calc) [facility] [employer] Comment: Reference range: <100 Desirable range <100 mg/dL for primary prevention; ?? <70 mg/dL for patients with CHD or diabetic patients with > or = 2 CHD risk factors. LDL-C is now calculated using the Zheng calculation, which is a validated novel method providing better accuracy than the Friedewald equation in the estimation of LDL-C. Mario SMITH et al. ANOOP. 2013;310(19): 7397-1555 (http://education.MyFrontSteps/faq/ILQ848) Chol/HDLC Ratio 3.5 <5.0 (calc) [employer] [facility] Non-HDL Cholesterol 156(H) <130 mg/dL (calc) [employer] Comment: For patients with diabetes plus 1 major ASCVD risk factor, treating to a non-HDL-C goal of <100 mg/dL (LDL-C of <70 mg/dL) is considered a therapeutic option. Blood Venous blood specimen / Unknown 05/31/2022 8:50 AM EDT 05/31/2022 8:51 AM EDT Narrative [facility] - 06/01/2022 5:54 PM EDT FASTING:YES FASTING: YES [employer] GMAT INSTRUCTOR LAB BLOOD ORDERABLES Final Re sult [facility] Organization Address City/State/ZIP Co de Phone Number [facility] [address], [place] [address] [facility] [employer] [address] [place] [address] * Mammography Report 1 (02/20/2021 10:24 AM EST) Anatomical Region Laterality Modality Breast Bilateral Mammography 02/20/2021 10:2 4 AM EST Narrative 02/20/2021 11:10 AM EST Refer to the Notes tab for result details [facility] Procedure: Mammography Report 1 Procedure Note Provider, MD [place] - 05/20/2022 Refer to the Notes tab for result details [facility] Procedure: Mammography Report 1 Nigel Dixon MD IMG BI PROCEDURES Final Resu lt * HPV E6/E7 RFLX BRIT 16 18/45 (12/28/2020 11:14 AM EDT) HPV mRNA E6/E7 rflx Not Detected Not Detected [facility] Comment: Methodology: Teamsite Developer-Mediated Amplification This assay detects E6/E7 viral messenger RNA (mRNA) from 14 high-risk HPV types (16,18,31,33,35,39,45,51,52,56,58,59,66,68). The analytical performance characteristics of this assay have been determined by [facility]. The modifications have not been cleared or approved by the FDA. This assay has been validated pursuant to the CLIA regulations and is used for clinical purposes. For additional information, please refer to http://education.[employer]/faq/VBZ475l5 (This link if provided for information/ educational purposes only.) THIS TEST WAS PERFORMED AT: [facility] [address] [place] [address],[address] [place], [place] ??[address] FRANCISCO JAVIER DUVAL MD 12/28/2020 11:1 4 AM EDT Macarena Rodriguez HISTORICAL/NON ORDERABLE LABS Fi nal Result [facility] Formerly [facility] [address] * Colonoscopy (09/29/2019) Colonoscopy Normal Normal Narrative Patricia Arreaga - 09/29/2019 Repeat in 5 year due to history of tubular adenomas us Historical Provider HEALTH MAINTENANCE Final Result from Last 3 Months or Most Recently Relevant to Health Maintenance Insurance [facility] Care Teams Inseamer Relationship Specialty Start Date End Date Lilian Mcclellan FNP [address] [place] [address] PCP - General Family Medicine 04/26/22 Mono Huggins FNP [address] [place] [address] Nurse Practitioner Family Medicine 01/21/23 Maureen Gastelum Cardiology RnPrimary Care Provider 02/11/24
--- OUTSIDE RECORDS SUMMARY | 2024-05-29 15:27 | XMS_ITS | Encounter Summary ---
Author Organization [employer] Address [address] [place] [address] Care Team Providers Care Cracking Still Operator Name Role Phone Lilian Mcclellan MEDICAL CONSULTANT Primary Care Provider [phone] Mono Huggins MEDICAL CONSULTANT Unavailable Unavailable Encounter Details Date Type Department Care Team (Late st Contact Info) Description 05/29/2024 Orders Only [facility] External Provider, [facility] Social History Tobacco Use Types Packs/Day Years Used Date Smoking Tobacco: Former Cigarettes Passive Smoke Exposure: Past Smokeless Tobacco: Never Alcohol Use Standard Drinks/Week [...] 2 VIEWS Routine 05/29/2024 9:53 AM EDT documented in this encounter Results * CT Cervical Spine w/o Contrast (05/29/2024 12:46 PM EDT) Anatomical Region Laterality Modality Spine, C-spine Computed Tomogra phy 05/29/2024 12:4 6 PM EDT Narrative 05/29/2024 1:33 PM EDT ? [facility] ?[address] ?[place] [address] ? CT Scan Report ? Signed ? Patient: Patel,Rita D ?MR#: [id number] ? : 1960 ?Acct:[id number] ? Age/Sex: 63 / F ?ADM Date: 04/04/25 ? Loc: HO.ED ? Attending Dr: ? Ordering Physician: Buffy Agosto ?? Date of Service: 05/29/24 ?? Procedure(s): CT cervical spine wo IV con ?? Accession Number(s): [id number] ? cc: Buffy Agosto; [employer] MEDICAL CONSULTANT ? Report Number: ?? [id number]: Total DLP = ??513.63 mGy-cm ?? EXAMINATION: [...] DD/ 1246 ? TD/TT: 05/29/24 1319 ? Assisted Living Housekeeper: ? Procedure Note Linnea Rosenberg - 05/29/[address] [address] CT Scan Report Signed Patient: Rita Patel DMR#: [id number] : 1960Acct:[id number] Age/Sex: 63 / FADM Date: 05/29/24 Loc: HO.ED Attending Dr: Ordering Physician: Buffy Agosto Date of Service: 05/29/24 Procedure(s): CT cervical spine wo IV con Accession Number(s): [id number] cc: Buffy Agosto; [facility] Report Number: [id number]: Total DLP = 513.63 mGy-cm EXAMINATION: CT [...] 05/29/24 1330 DD/ 1246 TD/TT: 05/29/24 1319 Assisted Living Housekeeper: us [facility] External Provider IMG CT PROCEDURES Final Result * CT Head w/o Contrast (05/29/2024 12:23 PM EDT) Anatomical Region Laterality Modality Head, Neck Computed Tomogra phy 05/29/2024 12:2 3 PM EDT Narrative 05/29/2024 1:29 PM EDT ? [facility] ?[address] ?[place] [address] ? CT Scan Report ? Signed ? Patient: Patel,Rita D ?MR#: [id number] ? : 1960 ?Acct:[id number] ? Age/Sex: 63 / F ?ADM Date: 05/29/24 ? Loc: HO.ED ? Attending Dr: ? Ordering Physician: Buffy Agosto ?? Date of Service: 05/29/24 ?? Procedure(s): CT head/brain wo IV con ?? Accession Number(s): [id number] ? cc: Buffy Agosto; Lilian Mcclellan MEDICAL CONSULTANT ? Report Number: ?? [id number]: Total DLP = ??541.89 mGy-cm ?? EXAMINATION: [...] by Ridge Ugalde MD in OV> ?05/29/24 1326 ? DD/ 1223 ? TD/TT: 05/29/24 1319 ? Assisted Living Housekeeper: ? Procedure Note Donhelen, Image - 05/29/[address] [place] [address] [address] Scan Report Signed Patient: Rita Patel DMR#: [id number] : 1960Acct:[id number] Age/Sex: 63 / FADM Date: 05/29/24 Loc: HO.ED Attending Dr: Ordering Physician: Buffy Agosto Date of Service: 05/29/24 Procedure(s): CT head/brain wo IV con Accession Number(s): [id number] cc: Buffy Agosto; [facility] Report Number: [id number]: Total DLP = 541.89 mGy-cm EXAMINATION: CT [...] Ridge Ugalde MD 05/29/2024 01:26 PM EDT Dictated By: Ridge Ugalde MD Signed By: <Electronically signed by Ridge Ugalde MD in OV> 05/29/24 1326 DD/ 1223 TD/TT: 05/29/24 1319 Assisted Living Housekeeper: [facility] External Provider IMG CT PROCEDURES Final Result * XR Chest 2 Views (05/29/2024 9:53 AM EDT) Anatomical Region Laterality Modality Chest Radiographic Kenyetta ging 05/29/2024 9:53 AM EDT Narrative 05/29/2024 10:16 AM EDT ? [facility] ?[address] ?[place] [address] ?XRay Report ? Signed ? Patient: Patel,Rita D ?MR#: [id number] ? : 1960 ?Acct:[id number] ? Age/Sex: 63 / F ?ADM Date: 04/04/25 ? Loc: HO.ED ? Attending Dr: ? Ordering Physician: Generic ED Physician ?? Date of Service: 05/29/24 ?? Procedure(s): XR chest 2V ?? Accession Number(s): [id number] ? cc: Generic ED Physician; Lilian Mcclellan MEDICAL CONSULTANT ? EXAMINATION: ?? XR CHEST ? CLINICAL [...] DD/ 0953 ? TD/TT: 05/29/24 1002 ? Assisted Living Housekeeper: ? Procedure Note Shakira, Linnea - 05/29/2024 [place] [address] XRay Report Signed Patient: Rita Patel DMR#: [id number] : 1960Acct:[id number] Age/Sex: 63 / FADM Date: 05/29/24 Loc: .ED Attending Dr: Ordering Physician: Generic ED Physician Date of Service: 05/29/24 Procedure(s): XR chest 2V Accession Number(s): [id number] cc: Generic ED Physician; [facility] EXAMINATION: XR CHEST CLINICAL INFORMATION: fall COMPARISON: [...] 05/29/24 1013 DD/ 0953 TD/TT: 05/29/24 1002 Assisted Living Housekeeper: [facility] External Provider IMG XR PROCEDURES Final Result documented in this encounter Visit Diagnoses Not on filedocumented in this encounter Additional Health Concerns Assessment Noted Time PHQ-9 Depression Total Score: 0 01/15/20 24 11:36 AM EST documented as of this encounter Care Teams Cracking Still Operator Relationship Specialty Start Date End Date Lilian Mcclellan FNP [address] [place] [address] PCP - General Family Medicine 04/26/22 Mono Huggins FNP [address] [place] [address] Nurse Practitioner Family Medicine 01/21/23 Maureen Gastelum Consulting Sales ManagerUtility Accounts Director 02/11/24 documented as of this encounter
--- OUTSIDE RECORDS SUMMARY | 2024-05-29 15:27 | XMS_ITS | Clinical Summary ---
Author Organization [address] Address [address] [place] [id number] Care Team Providers Care Block Piler Name Role Phone Halima Hickman MD Primary Care Provider Allergies Active Allergy Reactions Criticality Noted Date Comments Penicillins 10/13/2017 Medications No known medications Social History Tobacco Use Types Packs/Day Years Used Date Smoking Tobacco: Never Smokeless Tobacco: Never Alcohol Use Standard Drinks/Week Comments No 0 (1 standard drink = 0.6 oz pur e alcohol) Comments Unknown Sex and Gender Information Value Date Recorded Sex Assigned at Not on file Legal Sex Female 3:49 PM EDT Gender Identity Not on file Sexual Orientation Not on file Last Filed Vital Signs Vital Sign Reading Time Taken Comments Blood Pressure 119/79 10/13/2017 9:24 PM EDT Pulse 92 10/13/2017 9:24 PM EDT Temperature 36.8 ??C (98.2 ??F) 10/13/2017 9:24 PM ED T Respiratory Rate 16 10/13/2017 9:24 PM EDT Oxygen Saturation 97% 10/13/2017 9:24 PM EDT Inhaled Oxygen Concentration - - Weight - - Height - - Body Mass Index - - Plan of Treatment Health Maintenance Due Date Last Done Comments HIV screening 08/28/1975 Hepatitis C screening 1980 Tetanus adult (Td q 10,TDAP once) 1982 Cervical cancer screening 08/28/1983 Breast cancer screening 2002 Lipid disorder screening 2002 Colon cancer screening, Colonoscopy 08/28/2007 Shingles vaccine (Shingrix) (1 of 2 - Shingrix (RZV) 2 Dose Standard Series) 2012 Diabetes screening 10/13/2020 10/13/2017 Influenza vaccine 09/26/2023 Covid-19 vaccine series (1 - 2023-25 season) 2023 Pneumococcal Vaccine (50+ ye ars) (1 of 1 - PCV) 08/28/2027 RSV Immunization (1 - 1-dose 75+ series) 2037 Meningococcal Vaccine Aged Out No isabel bradley eligible based on patient's age to complete this topic Pneumococcal Vaccine (2 - 49 years) Aged Out No longer eligible b ased on patient's age to complete this topic Procedures Procedure Name Priority Date/Time Associated Diagnosis Comments BASIC METABOLIC PANEL STAT 10/13/2017 4:07 PM EDT from Last 3 Months or Most Recently Relevant to Health Maintenance Results * (ABNORMAL) Basic metabolic panel (10/13/2017 4:07 PM EDT) Sodium 142 136 - 144 mmol/L 10/13/2017 4:[address] [facility] Potassium 3.4 3.4 - 4.8 mmol/L 10/13/2017 4:[address] [facility] Chloride 107 98 - 107 mmol/L 10/13/2017 4:[address] [facility] CO2 24 20 - 30 mmol/L [facility] Anion Gap 11 7 - 17 10/13/2017 4:37 PM [facility] Glucose 142(H) 70 - 100 mg/dL 10/13/2017 4:[address] [facility] BUN 10 8 - 18 mg/dL 10/13/2017 4:[address] [facility] Creatinine 0.90 0.40 - 1.30 mg/dL [facility]/13[facility]2017 [facility] Calcium 8.8 8.8 - 10.2 mg/dL 10/13[facility]2017 [facility] BUN/Creatinine Ratio 11.1 8.0 - 23.0 10/13/2017 4:[address] [facility] eGFR (Afr Amer) >60 >60 mL/min/1.7 3m2 10/13/2017 4:[address] [facility] Comment: Values under 60mL/min/1.73m2 may indicate CKD if noted for ?? more than 3 months. eGFR is only valid if creatinine is at steady state. eGFR (NON -Jessie n) >60 >60 mL/min/1.7 3m2 10/13/2017 4:[address] [facility] Comment: Values under 60mL/min/1.73m2 may indicate CKD if noted for ?? more than 3 months. eGFR is only valid if creatinine is at steady state. Blood specimen (specimen) Venipuncture / Unknown 10/13/2017 4:07 PM EDT 10/13/2017 4:09 PM EDT Luis Mederos MD LAB BLOOD ORDERABLES Final Resu lt [facility] [address] [place] [address], [facility] [phone] from Last 3 Months or Most Recently Relevant to Health Maintenance Insurance [id number] MEDICAID [id number] MEDICAID [id number] MEDICAID Care Teams Block Piler Relationship Specialty Start Date End Date Halima Hickman MD PCP - General 10/13/17
--- OUTSIDE RECORDS SUMMARY | 2024-05-29 15:27 | XMS_ITS | Encounter Summary ---
Author Organization [employer] Address [address] [facility] [address] [place] [address] Care Team Providers Care Magnetic Tester Name Role Phone Lima [facility] Primary Care Provider [phone] Mono Huggins Unavailable Unavailable Reason for Visit * Reason Comments Med Refill Encounter Details Date Type Department Care Team ([facility] st Contact Info) Description 05/12/2024 Refill [facility] [address] [place] [address] [facility] [address] [place] [address] Class 3 severe obesity due to excess calories with serious comorbidity and body mass index (BMI) of 40.0 to 44.9 in adult (CMS/HCC) Social History Tobacco Use Types Packs/Day Years [...] documented as of this encounter Visit Diagnoses Diagnosis Class 3 severe obesity due to excess calories with serious comorbidity and body mass index (BMI) of 40.0 to 44.9 in adult (CMS/HCC) documented in this encounter Additional Health Concerns Assessment Noted Time PHQ-9 Depression Total Score: 0 01/15/20 24 11:36 AM EST documented as of this encounter Care Teams Magnetic Tester Relationship Specialty Start Date End Date Lilian Mcclellan FNP [address] [place] [address] PCP - General Family Medicine 04/26/22 Mono Huggins FNP [address] [place] [address] Nurse Practitioner Family Medicine 01/21/23 Maureen Gastelum Construction TechWater Chaser 02/11/24 documented as of this encounter
--- OUTSIDE RECORDS SUMMARY | 2024-05-29 15:27 | XMS_ITS | Encounter Summary ---
Author Organization [employer] Address [address] [facility] 7t [place] [address] Care Team Providers Care Cane Piler Name Role Phone Adah [facility] Primary Care Provider [phone] Mono Huggins Unavailable Unavailable Reason for Visit * Reason Onset Date Comments Referral 08/30/2023 Encounter Details Date Type Department Care Team ([facility] st Contact Info) Description 08/30/2023 Telephone [facility]INE [address] [place] [address] Adah [place] [facility] [address] [place] [address] Referral Social History Tobacco Use Types Packs/Day Years Used Date Smoking Tobacco: Former Cigarettes Smokeless Tobacco: Never Alcohol Use Standard Drinks/Week Comments Never 0 (1 standard drink = 0.6 oz pur e alcohol) Depression Answer Date Recorded Patient Health Questionnaire-9 Score 0 05/28/2023 Patient Health Questionnaire-9 Score 0 05/28/2023 Last PHQ-9: Questionnaire Data Not on file 0 05/28/2023 Housing Stability Answer Date Recorded What is [...] Date Recorded Patient Health Questionnaire-2 Score 0 05/28/2023 Comments Unknown Sex and Gender Information Value Date Recorded Sex Assigned at Female 12/25/2021 10:15 AM EDT Legal Sex Female 10:15 AM EDT Gender Identity Female 12/25/2021 10:15 AM EDT Sexual Orientation Don't know 12/25/2021 10 :15 AM EDT documented as of this encounter Miscellaneous Notes * Telephone Encounter - Michell Romero RN - 09/09/2023 9:40 AM EDT TC placed to pt., pt. Reports she is looking for a referral for ortho specifically for injections into R shoulder, reports she used to receive injections in shoulders and knees at [facility] ortho. At this time reports knees are all set and are [facility]ing [facility] and received shoulder injection in June 2022. Pt. Reports she already went to their office and was told she would need a new referral. Advised pt. Message would be sent to PCP requesting ortho referralto re-establish for R shoulder, aware provider is on VAC and will seek PT in the meantime (letter mailed 09/04/23). Pt. Has no other questions or concerns * Telephone Encounter - aHven Joseph RN - 09/02/2023 10:59 AM EDT TC returned to [facility] [phone] however no answer, RN left requesting CB to red team nurses. Maureen to f/u PRN. * Telephone Encounter - Dain Lucia - 08/30/2023 3:43 PM EDT Tc from Maureen with [facility] calling requesting status on physical therapy and orthopedics referral. Please contact Maureen at [phone]. documented in this encounter Plan of Treatment Not on file documented as of this encounter Visit Diagnoses Not on filedocumented in this encounter Additional Health Concerns Assessment Noted Time PHQ-9 Depression Total Score: 0 05/28/19 9:46 AM EDT documented as of this encounter Care Teams Cane Piler Relationship Specialty Start Date End Date Lilian Mcclellan FNP [address] [place] [address] PCP - General Family Medicine 04/26/22 Mono Huggins FNP [address] [place] [address] Nurse Practitioner Family Medicine 01/21/23 Maureen Gastelum Endoscopy Support SpecialistTape Calender 02/11/24 documented as of this encounter
--- OUTSIDE RECORDS SUMMARY | 2024-05-29 15:27 | XMS_ITS | Encounter Summary ---
Author Organization [employer] Address [address] [facility] [address] [place] [address] Care Team Providers Care Dinkey Engine Operator Name Role Phone Lilian Mcclellan SILK WASHING MACHINE OPERATOR Primary Care Provider [phone] Mono Huggins SILK WASHING MACHINE OPERATOR Unavailable Unavailable Reason for Referral * Consultation (Routine) - Pending Review Specialty Diagnoses / Procedures Referred By Fabiana rosa Referred To Contact Pharmacy Diagnoses Diastolic dysfunction without heart failure Sun King MD [address] [place] [address] Phone: tel: fax: Referral ID Status Reason Start Date Expiration Date Visits Requested Visits Authorized [id number] Pending Review Continuity of Care 03/17/2024 03/17/2025 6 6 Encounter Details Date Type Department Care Team (Late st Contact Info) Description 03/17/2024 Orders Only [facility] [address] [place] [address] Sun King MD [address] [place], [place] [id number] Diastolic dysfunction without heart failure (Primary Dx) Social History Tobacco Use Types Packs/Day Years [...] as of this encounter Plan of Treatment Scheduled Referrals Name Type Priority Associated Diagnoses Orde r Schedule Referral to Pharmacy MTM Outpatient Referral Routine Diastolic dysfunction without heart failure Ordered: 03/17/2024 documented as of this encounter Visit Diagnoses Diagnosis Diastolic dysfunction without heart failure- Primary documented in this encounter Additional Health Concerns Assessment Noted Time PHQ-9 Depression Total Score: 0 01/15/20 24 11:36 AM EST documented as of this encounter Care Teams Dinkey Engine Operator Relationship Specialty Start Date End Date Lilian Mcclellan FNP [address] [place] [id number] PCP - General Family Medicine 04/26/22 Mono Huggins FNP [address] [place] [id number] Nurse Practitioner Family Medicine 01/21/23 Maureen Gastelum Report SpecialistBlue Print Control Clerk 02/11/24 documented as of this encounter
== END 2024-05-29 14:16 | disposition home or self-care (01) ==
PROVIDERS: Emergency Provider Emergency Medicine; PCP Registered Nurse
DX: S40.011A Contusion of right shoulder, initial encounter (principal); S16.1XXA Strain of muscle, fascia and tendon at neck level, initial encounter; S29.011A Strain of muscle and tendon of front wall of thorax, initial encounter; M54.2 Cervicalgia; R51.9 Headache, unspecified; M47.894 Other spondylosis, thoracic region; R07.89 Other chest pain; M25.511 Pain in right shoulder; X58.XXXA Exposure to other specified factors, initial encounter; Y99.0 Civilian activity done for income or pay; Y93.9 Activity, unspecified; Y92.811 Bus as the place of occurrence of the external cause; Z79.899 Other long term (current) drug therapy
CPT/HCPCS: 70450; 71046; 72125; 96372; 99284; J1885

== ENCOUNTER → 2024-05-29 09:53 | Outpatient (BNV) | payer MEDICAID, SELFPAY | PROVIDERS: PCP Registered Nurse; Visit Provider Radiology Diagnostic Radiology | DX: M54.2 Cervicalgia (principal); R07.89 Other chest pain; R51.9 Headache, unspecified | CPT/HCPCS: 70450; 71046; 72125 ==

== ENCOUNTER 2024-06-08 03:50 | Emergency (ER) | payer OTHER, SELFPAY ==
--- NOTE | ~2024-06-08 | XR_ITS ---
CLINICAL HISTORY: cough 1 view chest x-ray Comparison: CR/VA/SR - XR CHEST 2V - 05/29/24 10:00 EDT Findings: The lungs are clear. Normal size heart. No acute fracture. IMPRESSION: 1. No acute findings. This document has been electronically signed by: Ivana Bullock MD on 06/08/2024 05:11:29
[2024-06-08 04:09] VITALS: BP 136/70; PULSE 75; RESP 19; TEMP 36.8; O2SAT 94; BMI 41.0
--- OUTSIDE RECORDS SUMMARY | 2024-06-08 04:32 | XMS_ITS | Encounter Summary ---
Author Organization [employer] Address [address] [facility] [place] [address] Care Team Providers Care Commissioning Manager Name Role Phone Lilian Mcclellan CREDIT COORDINATOR Primary Care Provider [phone] Mono Huggins CREDIT COORDINATOR Unavailable Unavailable Encounter Details Date Type Department Care Team (Late st Contact Info) Description 01/11/2023 Abstract [facility] MEDICINE [address] [place], [place] [phone] Patricia Arreaga Social History Tobacco Use Types [...] documented as of this encounter Care Teams Commissioning Manager Relationship Specialty Start Date End Date Lilian Mcclellan FNP [address] [place] [address] PCP - General Family Medicine 04/26/22 Mono Huggins FNP [address] [place] [address] Nurse Practitioner Family Medicine 01/21/23 Maureen Gastelum Director ProcessRubber Factory Worker 02/11/24 documented as of this encounter
--- OUTSIDE RECORDS SUMMARY | 2024-06-08 04:32 | XMS_ITS | Clinical Summary ---
Author Organization [employer] Address [address] [place] [address] 7t [place] [address] Care Team Providers Care Finishing Manager Name Role Phone Lilian Mcclellan CUPOLA MELTER HELPER Primary Care Provider [phone] Mono Huggins CUPOLA MELTER HELPER Unavailable Unavailable Allergies Active Allergy Reactions Criticality [...] FOURTEEN DAYS 15 g 1 025 Active ezetimibe (Zetia) 10 MG tablet TAKE 1 TABLET BY MOUTH AT BEDTIME 90 tablet 1 025 Active clotrimazole (Lotrimin) 1 % creamIndications: Groin rash APPLY TOPICALLY TWICE DAILY FOR 28 DAYS 30 g 2 025 Active Tirzepatide-Weigh t Management (Zepbound) 2.5 MG/0.5ML solution auto-injectorIndi cations:Class 3 severe obesity due to excess calories with serious comorbidity and body mass index (BMI) of 40.0 to 44.9 in adult (CMS/HCC) Inject 0.5 mL (2.5 mg) under the [...] MOUTH DAILY LAB 1 WEEK AFTER STARTING Active Tirzepatide-Weigh t Management (Zepbound) 5 MG/0.5ML [...] needed for anxiety 40 tablet 025 Active albuterol (2.5 MG/3ML) 0.083% nebulizer solutionIndicatio ns:Restrictive lung disease INHALE 1 AMPULE USING A NEBULIZER EVERY 4 HOURS NEEDED FOR WHEEZING 90 mL 1 025 Active albuterol (2.5 MG/3ML) 0.083% nebulizer solutionIndicatio ns:Restrictive lung disease INHALE 1 AMPULE USING A NEBULIZER EVERY 4 HOURS NEEDED FOR WHEEZING 90 mL 1 025 2024 Discontinued hydrOXYzine HCl (Atarax) 25 MG tabletIndications :Anxiety Take one tab during the day, may take two tabs at bedtime for anxiety as needed. 90 tablet 025 2024 Discontinued(R eorder (will not trigger notification to Pharmacy)) clonazePAM (KlonoPIN) 0.5 MG tabletIndications :Anxiety Take 1 tab orally at bedtime, and may occasionally take 1 extra tab during the day as needed for anxiety 40 tablet 025 2024 Discontinued(R eorder (will not trigger [...] negative Has upcoming appt. Pap: Followed by [facility] RELOCATION COORDINATOR, Dr. Edie Robbins-scope: 2019, repeat 5 years BMD: Routine age 67 LDCT done 08/24/22 was Lung RADS 2 - plan is for yearly LDCT HCV Screen: Neg 05/2022 HIV Screen: Neg 05/2022 Screening Labs: A1c 5.6 05/2022 Severe persistent asthma 05/09/2022 Overview (06/12/2022): ?? Followed by [facility] pulmonology ?? Severe allergic asthma ?? Incruse [...] any questions or concerns, she should call [facility] BH Department and/or PCP. I have wished [...] be retiring in approx 1 year, but [facility] should have new provider in place to [...] Palpitations 10/15/2017 Overview (06/12/2022): ?? Followed by [facility] cardiology ?? Metoprolol XR 25mg daily Assessment & Plan (11/18/2022 4:26 PM EDT): - No current sx during office visit - 2020 echo with normal EF. Mild elevation in LV filling pressure. -2018 teletypesetter monitor with PACs and atrial tachycardia - Will submit referral to [facility] cardiology per patient request - Continue daily metoprolol Obesity 04/09/2017 Knee pain 12/04/2016 Keratosis 05/11/2016 Seborrheic keratosis 05/11/2016 Gastroesophageal reflux disease 06/06/2015 Overview (05/09/2022): Followed by [facility] GI Shoulder pain 06/06/2015 Chronic pain 06/06/2015 [...] organization. Date Type Department Care Team Description 06/02/[address] [facility] MEDICINE [address] [place] [address] Lilian Mcclellan FNP Restrictive lung disease 05/29/2024 Orders Only [facility] External Provider, [facility] 05/13/[address] [facility] MEDICINE [address] [place] [address] Lilian Mcclellan FNP Prior Authorization ([facility] Request: Zepbound) 05/12/[address] [facility] MEDICINE [address] [place] [address] Lilian Mcclellan FNP Class 3 severe obesity due to excess calories with serious comorbidity and body mass index (BMI) of 40.0 to 44.9 in adult ([facility]) 05/08/2024 Population Health Risk Score [facility] () Department [address] [place] [phone] Provider, Population Health Generic 05/06/[address] [facility] MEDICINE [address] [place] [address] Lilian Mcclellan FNP Obesity, unspecified class, unspecified obesity type, unspecified whether serious comorbidity present 05/05/2024 Travel 04/17/[address] [facility] MEDICINE [address] [place] [address] Lilian Mcclellan FNP 04/06/2024 1:15 PM EST Office Visit [facility] OPTOMETRY [address] [place] [address] Cindy Dumas OD Viral conjunctivitis (Primary Dx) 04/06/2024 11:30 AM EST Office Visit [facility] MEDICINE [address] [place] [address] Jaqueline Parikh ANP Itch of eye (Primary Dx); Viral conjunctivitis; Non-seasonal allergic rhinitis due to other allergic trigger; Elevated blood pressure reading without diagnosis of hypertension; Acute conjunctivitis of both eyes, unspecified acute conjunctivitis type 04/06/[address] [address] Shannan Robles, mining engineering technologist Question 04/06/2024 Travel 03/31/2024 3:20 PM EST Office Visit [facility]IN [facility] [address] [place] [address] Mya Dimas MD Viral conjunctivitis (Primary Dx); Severe persistent asthma with acute exacerbation 03/31/2024 Orders Only [facility] CH[facility] MED & PEDS [address] [place], [place] [phone] Mya Dimas MD Viral conjunctivitis (Primary Dx) 03/31/[address] [facility] [address] [place] [address] Lilian Mcclellan FNP In person advise 03/27/[address] [phone] Lilian Mcclellan FNP Nurse Triage 03/17/2024 Orders Only [facility] MEDICINE [address] [place] [address] Sun King MD Diastolic dysfunction without heart failure (Primary Dx) 03/17/[address] [facility] MEDICINE [address] [place] [address] Owls HeadLilian FNP 03/10/[address] [facility] MEDICINE [address] [facility], [place] [phone] Owls HeadLilian FNP Prior Authorization ( [place] Request: Zepbound) from Last 3 Months Immunizations Name Administration [...] is your housing situation today? I have donnaloki hernandez 01/07/[address] you [...] 01/06/2025 01/07/2024 Depression Screening 01/14/2025 01/15/2024, 01/15/20 Tobacco Screening 06/01/2025 06/01/2024 Cervical Cancer Screening 12/28/2025 HPV/Cotest 12/28/2025 12/28/2020, [...] of 40.0 to 44.9 in adult (CMS/HCC) MAMMOGRAM GENERIC Routine 02/20/2021 10: 24 AM [...] EDT Narrative 05/29/2024 1:33 PM EDT ? [facility] ?[address] ?[place] [address] ? CT Scan Report ? Signed ? Patient: Patel,Rita D ?MR#: [id number] ? : 1960 ?Acct:[id number] ? Age/Sex: 63 / F ?ADM Date: 04/04/25 ? Loc: HO.ED ? Attending Dr: ? Ordering Physician: Buffy Agosto ?? Date of Service: 05/29/24 ?? Procedure(s): CT cervical spine wo IV con ?? Accession Number(s): [id number] ? cc: Buffy Agosto; Lilian Mcclellan CUPOLA MELTER HELPER ? Report Number: ?? [id number]: Total DLP = ??513.63 mGy-cm ?? EXAMINATION: [...] DD/ 1246 ? TD/TT: 05/29/24 1319 ? Vp Home Health: ? Procedure Note Linnea Rosenberg - 05/29/2024 [place] [address] [place] [address] CT Scan Report Signed Patient: Rita Patel [facility]#: [id number] : 1960Acct:[id number] Age/Sex: 63 / FADM Date: 05/29/24 Loc: HO.ED Attending Dr: Ordering Physician: Buffy Agosto Date of Service: 05/29/24 Procedure(s): CT cervical spine wo IV con Accession Number(s): [id number] cc: Buffy Agosto; [facility] Report Number: [id number]: Total DLP = 513.63 mGy-cm EXAMINATION: CT [...] 05/29/24 1330 DD/ 1246 TD/TT: 05/29/24 1319 Vp Home Health: [facility] External Provider IMG CT PROCEDURES Final Result * CT Head w/o Contrast (05/29/2024 12:23 PM EDT) Anatomical Region Laterality Modality Head, Neck Computed Tomogra phy 05/29/2024 12:2 3 PM EDT Narrative 05/29/2024 1:29 PM EDT ? [facility] ?[address] ?[place] [address] ? CT Scan Report ? Signed ? Patient: Patel,Rita D ?MR#: [id number] ? : 1960 ?Acct:[id number] ? Age/Sex: 63 / F ?ADM Date: 05/29/24 ? Loc: HO.ED ? Attending Dr: ? Ordering Physician: Buffy Agosto ?? Date of Service: 05/29/24 ?? Procedure(s): CT head/brain wo IV con ?? Accession Number(s): [id number] ? cc: Buffy Agosto; Lilian Mcclellan CUPOLA MELTER HELPER ? Report Number: ?? [id number]: Total DLP = ??541.89 mGy-cm ?? EXAMINATION: [...] ??Ridge Ugalde MD ??05/29/2024 01:26 PM EDT ?? RP ? Dictated By: ?Ridge Ugalde MD ? Signed By: ?<Electronically signed by Ridge Ugalde MD in OV> ?05/29/24 1326 ? DD/ 1223 ? TD/TT: 05/29/24 1319 ? Vp Home Health: ? Procedure Note Donotuseinterpreter, Image - 05/29/[address] [place] [address] [address] Scan Report Signed Patient: Rita Patel DMR#: [id number] : 1960Acct:[id number] Age/Sex: 63 / FADM Date: 05/29/24 Loc: HO.ED Attending Dr: Ordering Physician: Buffy Agosto Date of Service: 05/29/24 Procedure(s): CT head/brain wo IV con Accession Number(s): [id number] cc: Buffy Agosto; [facility] Report Number: [id number]: Total DLP = 541.89 mGy-cm EXAMINATION: CT [...] 05/29/24 1326 DD/ 1223 TD/TT: 05/29/24 1319 Vp Home Health: [facility] External Provider IMG CT PROCEDURES Final Result * XR Chest 2 Views (05/29/2024 9:53 AM EDT) Anatomical Region Laterality Modality Chest Radiographic Kenyetta ging 05/29/2024 9:53 AM EDT Narrative 05/29/2024 10:16 AM EDT ? [facility] ?[address] ?[place] [address] ?XRay Report ? Signed ? Patient: Patel,Rita D ?MR#: [id number] ? : 1960 ?Acct:[id number] ? Age/Sex: 63 / F ?ADM Date: 04/04/25 ? Loc: HO.ED ? Attending Dr: ? Ordering Physician: Generic ED Physician ?? Date of Service: 05/29/24 ?? Procedure(s): XR chest 2V ?? Accession Number(s): [id number] ? cc: Generic ED Physician; Owls HeadLilian CUPOLA MELTER HELPER ? EXAMINATION: ?? XR CHEST ? CLINICAL [...] DD/ 0953 ? TD/TT: 05/29/24 1002 ? Vp Home Health: ? Procedure Note Donbhavinter, Image - 05/29/2024 [place] [address] XRay Report Signed Patient: Rita Patel DMR#: [id number] : 1960Acct:[id number] Age/Sex: 63 / FADM Date: 05/29/24 Loc: HO.ED Attending Dr: Ordering Physician: Generic ED Physician Date of Service: 05/29/24 Procedure(s): XR chest 2V Accession Number(s): [id number] cc: Generic ED Physician; [facility] EXAMINATION: XR CHEST CLINICAL INFORMATION: fall COMPARISON: [...] 05/29/24 1013 DD/ 0953 TD/TT: 05/29/24 1002 Vp Home Health: [facility] External Provider IMG XR PROCEDURES Final Result * Hepatitis C Antibody with Reflex to HCV, RNA, Quantitative, Real-Time PCR (05/31/2022 8:50 AM EDT) Hepatitis C Antibody NON-REACT JAE NON-REACT JAE [employer] [address] [place] [address] Index 0.02 <1.00 [employer] [address] [place] [address] Comment: HCV antibody was non-reactive. There is no laboratory evidence of HCV infection. In most cases, no further action is required. However, if recent HCV exposure is suspected, a test for HCV RNA (test code 28792) is suggested. For additional information please refer to http://education.[facility]/faq/LNZ53n9 (This link is being provided for informational/ educational purposes only.) Blood Venous blood specimen / Unknown 05/31/2022 8:50 AM EDT 05/31/2022 8:51 AM EDT Narrative [facility] - 06/01/2022 5:54 PM EDT FASTING:YES FASTING: YES [facility] CUPOLA MELTER HELPER LAB BLOOD ORDERABLES Final Re sult [facility] [address], [place] [address] [employer] [address] [place] [employer] [address] [place] [address] * HIV-1/2 Antigen and Antibodies, Fourth Generation, with Reflexes (05/31/2022 8:50 AM EDT) HIV Antigen/Antibody, 4th Generation NON-REAC TIVE NON-REAC TIVE [employer] [address] [place] [address] [address] Comment: HIV-1 antigen and HIV-1/HIV-2 antibodies were [...] ?? For additional information please refer to http://[employer].[facility]/faq/RRS289 (This link is being provided for informational/ educational purposes only.) The performance of this assay has not been clinically validated in patients less than 2 years old. Blood Venous blood specimen / Unknown 05/31/2022 8:50 AM EDT 05/31/2022 8:51 AM EDT Narrative [facility] - 06/01/2022 5:54 PM EDT FASTING:YES FASTING: YES [facility] LAB BLOOD ORDERABLES Final Re sult [facility] [address], [place] [address] [employer] [address] [place] [address] [place] [address] * (ABNORMAL) Lipid Panel, Standard (05/31/2022 8:50 AM EDT) [facility] Signature Cholesterol, Total 218(H) <200 mg/dL [employer] [address] [place] [address] HDL Cholesterol 62 > OR = 50 mg/dL [employer] [address] [place] [address] [place] Triglycerides 206(H) <150 mg/dL [employer] [address] [place] [facility] [address] Comment: If a non-fasting specimen was collected, consider repeat triglyceride testing on a fasting specimen if clinically indicated. Griselda et al. J. of Clin. Lipidol. 2015;9:129-169. LDL Cholesterol 124(H) mg/dL (calc) [employer] [address] [place] [employer] [employer] Comment: Reference range: <100 Desirable range <100 mg/dL for primary prevention; ?? <70 mg/dL for patients with CHD or diabetic patients with > or = 2 CHD risk factors. LDL-C is now calculated using the Zheng calculation, which is a validated novel method providing better accuracy than the Friedewald equation in the estimation of LDL-C. Mario SMITH et al. ANOOP. 2013;310(19): 0239-9343 (http://education.[employer]/faq/UCB869) Chol/HDLC Ratio 3.5 <5.0 (calc) [employer] [address] [place] [employer] Non-HDL Cholesterol 156(H) <130 mg/dL (calc) [employer] [address] [place] [facility] Comment: For patients with diabetes plus 1 major ASCVD risk factor, treating to a non-HDL-C goal of <100 mg/dL (LDL-C of <70 mg/dL) is considered a therapeutic option. Blood Venous blood specimen / Unknown 05/31/2022 8:50 AM EDT 05/31/2022 8:51 AM EDT Narrative [facility] - 06/01/2022 5:54 PM EDT FASTING:YES FASTING: YES [facility] LAB BLOOD ORDERABLES Final Re sult [facility] [address], [place] [address] [employer] [address] [place] [address] [place] [address] * Mammography Report 1 (02/20/2021 10:24 AM [...] mRNA E6/E7 rflx Not Detected Not Detected [facility] Comment: Methodology: Manager [employer]-Mediated Amplification This assay detects E6/E7 viral messenger RNA (mRNA) from 14 high-risk HPV types (16,18,31,33,35,39,45,51,52,56,58,59,66,68). The analytical performance characteristics of this assay have been determined by [employer]. The modifications have not been cleared or approved by the FDA. This assay has been validated pursuant to the CLIA regulations and is used for clinical purposes. For additional information, please refer to http://education.[facility]/faq/LUB337q8 (This link if provided for information/ educational purposes only.) THIS TEST WAS PERFORMED AT: [facility] [address] [place] [address] [address] [place], [place] ??[phone] FRANCISCO JAVIER DUVAL MD 12/28/2020 11:1 4 AM EDT Macarena Rodriguez HISTORICAL/NON ORDERABLE LABS Fi nal Result Performing Organization Address City/State/[facility] Co de Phone Number [facility] [address] * Colonoscopy (09/29/2019) Colonoscopy Normal Normal Narrative Patricia Arreaga - 09/29/2019 Repeat in 5 year due to history of tubular adenomas Historical Provider HEALTH MAINTENANCE Final Result from Last 3 Months or Most Recently Relevant to Health Maintenance [place] [address] [address] [address] Care Teams Finishing Manager Relationship Specialty Start Date End Date Lilian Mcclellan FNP [address] [place] [address] PCP - General Family Medicine 04/26/22 Mono Huggins FNP [address] [place] [address] Nurse Practitioner Family Medicine 01/21/23 Maureen Gastelum Male ImpersonatorWood Tank Builder 02/11/24
--- OUTSIDE RECORDS SUMMARY | 2024-06-08 04:32 | XMS_ITS | Encounter Summary ---
Author Organization [employer] Address [address] [facility] 7t [place] [address] Care Team Providers Care Outside Machinist Apprentice Name Role Phone [facility] Primary Care Provider [phone] Mono Huggins Unavailable Unavailable Reason for Visit * Reason Comments Med Refill Encounter Details Date Type Department Care Team ([facility] st Contact Info) Description 05/12/2024 Refill [facility] MEDICINE [address] [place] [address] [facility] [address] [place] [address] Class 3 severe obesity due to excess [...] documented as of this encounter Care Teams Outside Machinist Apprentice Relationship Specialty Start Date End Date Lilian Mcclellan FNP [address] [place] [address] PCP - General Family Medicine 04/26/22 Mono Huggins FNP [address] [place] [address] Nurse Practitioner Family Medicine 01/21/23 Maureen Gastelum Steam PresserLatin Professor 02/11/24 documented as of this encounter
--- OUTSIDE RECORDS SUMMARY | 2024-06-08 04:32 | XMS_ITS | Encounter Summary ---
Author Organization [employer] Address [address] [place] [address] 7t [place] [address] Care Team Providers Care Administrative Executive Name Role Phone [facility] Primary Care Provider [phone] Mono Huggins Unavailable Unavailable Reason for Visit * Reason Onset Date Comments Results 08/22/2022 TB Test Encounter Details Date Type Department Care Team ([facility] st Contact Info) Description 08/22/[address] [facility] MEDICINE [address] [place] [address] [place] [address] [place] [address] Results (TB Test) Social History Tobacco Use [...] - 08/23/2022 11:48 AM EDT T/C to [phone] through [employer] id - [id number] for TB test, pt. Informed that clinic does not receive result yet, clinic will call once result is available. Pt. Verbally agreed and understood. * Telephone Encounter - Anabella Eric - 08/22/2022 1:47 PM EDT Tc from patient requesting tb test results. Patient speaks upper sorbian documented in this encounter Plan of Treatment Not on file documented as of this encounter Visit Diagnoses Not on filedocumented in this encounter Additional Health Concerns Assessment Noted Time PHQ-9 Depression Total Score: 3 08/10/19 23 10:21 AM EDT documented as of this encounter Care Teams Administrative Executive Relationship Specialty Start Date End Date Lilian Mcclellan FNP [address] [place] [address] PCP - General Family Medicine 04/26/22 Mono Huggins FNP [address] [place] [address] Nurse Practitioner Family Medicine 01/21/23 Maureen Gastelum Fine Arts InstructorExperimental Physicist 02/11/24 documented as of this encounter
--- OUTSIDE RECORDS SUMMARY | 2024-06-08 04:32 | XMS_ITS | Encounter Summary ---
Author Organization [employer] Address [address] [facility] 7t [place] [address] Care Team Providers Care Clinical Dental Technician Name Role Phone [facility] Primary Care Provider [phone] Mono Huggins Unavailable Unavailable Reason for Visit * Reason Onset Date Comments Referral 08/30/2023 Encounter Details Date Type Department Care Team ([facility] st Contact Info) Description 08/30/2023 Telephone [facility] MEDICINE [address] [place] [address] [place] [facility] [address] [place] [address] Referral Social History Tobacco Use Types Packs/Day [...] receive injections in shoulders and knees at [facility] ortho. At this time reports knees are all set and are not bothering her. [facility], pt. Last seen by ortho and [...] questions or concerns * Telephone Encounter - Haven Joseph RN - 09/02/2023 10:59 AM EDT TC returned to [facility] [phone] however no answer, RN left requesting CB to red team nurses. Maureen to f/u PRN. * Telephone Encounter - Dain Lucia - 08/30/2023 3:43 PM EDT Tc from Maureen with [facility] calling requesting status on physical therapy and orthopedics referral. Please contact Maureen at [phone]. documented in this encounter Plan of Treatment Not on file documented as of this encounter Visit Diagnoses Not on filedocumented in this encounter Additional Health Concerns Assessment Noted Time PHQ-9 Depression Total Score: 0 05/28/19 9:46 AM EDT documented as of this encounter Care Teams Clinical Dental Technician Relationship Specialty Start Date End Date Lilian Mcclellan FNP [address] [place] [address] PCP - General Family Medicine 04/26/22 Mono Huggins FNP [address] [place] [address] Nurse Practitioner Family Medicine 01/21/23 Maureen Gastelum Manager WindJar Capper 02/11/24 documented as of this encounter
--- OUTSIDE RECORDS SUMMARY | 2024-06-08 04:32 | XMS_ITS | Clinical Summary ---
Author Organization [address] Address [address] [place] [address] Care Team Providers Care Va Underwriter Name Role Phone Halima Hickman MD Primary [...] screening 2002 Colon cancer screening, Colonoscopy 08/28/2007 Pneumococcal Vaccine (50+ ye ars) (1 of 1 - PCV) 2012 Shingles vaccine (Shingrix) (1 of 2 - Shingrix (RZV) 2 Dose Standard Series) 2012 Diabetes screening 10/13/2020 10/13/2017 Covid-19 vaccine series ( - 2023- season) 2023 Influenza vaccine 10/26/2024 RSV Immunization (1 - 1-dose 75+ series) [...] - 144 mmol/L 10/13/2017 4:37 PM EDT [facility] Potassium 3.4 3.4 - 4.8 mmol/L 10/13/2017 4:37 PM EDT [facility] Chloride 107 98 - 107 mmol/L 10/13/2017 4:37 PM EDT [facility] CO2 24 20 - 30 mmol/L 10/13[facility]2017 [facility] Anion Gap 11 7 - 17 10/13/2017 4:37 [facility] Glucose 142(H) 70 - 100 mg/dL 10/13/2017 4:37 PM EDT [facility] BUN 10 8 - 18 mg/dL 10/13/2017 4:37 PM EDT [facility] Creatinine 0.90 0.40 - 1.30 mg/dL 10/13/2017 4:37 [facility] Calcium 8.8 8.8 - 10.2 mg/dL 10/13/2017 4:37 PM [facility] BUN/Creatinine Ratio 11.1 8.0 - 23.0 10/13/2017 4:37 PM EDT [facility] eGFR (Afr Amer) >60 >60 mL/min/1.7 3m2 10/13/2017 4:37 PM EDT [facility] Comment: Values under 60mL/min/1.73m2 may indicate CKD if noted for ?? more than 3 months. eGFR is only valid if creatinine is at steady state. eGFR (NON -Jessie n) >60 >60 mL/min/1.7 3m2 10/13/2017 4:37 PM EDT [facility] Comment: Values under 60mL/min/1.73m2 may indicate CKD if noted for ?? more than 3 months. eGFR is only valid if creatinine is at steady state. Blood specimen (specimen) Venipuncture / Unknown 10/13/2017 4:07 PM EDT 10/13/2017 4:09 PM EDT Luis Mederos MD LAB BLOOD ORDERABLES Final Resu lt [facility] [address] [place] [address], [facility] [phone] from Last 3 Months or Most Recently Relevant to Health Maintenance Insurance [id number] MEDICAID [id number] MEDICAID [id number] MEDICAID Care Teams Va Underwriter Relationship Specialty Start Date End Date Halima Hickman MD PCP - General 10/13/17
--- OUTSIDE RECORDS SUMMARY | 2024-06-08 04:32 | XMS_ITS | Encounter Summary ---
Author Organization [email or web address] Address [address] [facility] [address] [place] [address] Care Team Providers Care Cinnamon Grinder Name Role Phone Lilian Mcclellan CONDITIONING COACH Primary Care Provider [phone] Mono Huggins CONDITIONING COACH Unavailable Unavailable Reason for Referral * Consultation (Routine) - Pending Review Specialty Diagnoses / Procedures Referred By Fabiana rosa Referred To Contact Pharmacy Diagnoses Diastolic dysfunction without heart failure Sun King MD [address] [place] [address] Phone: tel: fax: Referral ID Status Reason Start Date Expiration Date Visits Requested Visits Authorized [id number] Pending Review Continuity of Care 03/17/2024 03/17/2025 6 6 Encounter Details Date Type Department Care Team (Late st Contact Info) Description 03/17/2024 Orders Only [facility] [address] [place] [address] Sun King MD [address], [place] [phone] Diastolic dysfunction without heart failure (Primary Dx) [...] documented as of this encounter Care Teams Cinnamon Grinder Relationship Specialty Start Date End Date Lilian Mcclellan FNP [address] [place] [id number] PCP - General Family Medicine 04/26/22 Mono Huggins FNP [address] [place] [id number] Nurse Practitioner Family Medicine 01/21/23 Maureen Gastelum Shipping Clerk [employer] Grinding Machine Operator 02/11/24 documented as of this encounter
[2024-06-08 04:41] LABS: Basophils Absolute Auto 0.1 X10*3/uL (0.0-0.2); Basophils Percent Auto 1.5 % (0-2); Eosinophils Absolute Auto 0.3 X10*3/uL (0.0-0.4); Eosinophils Percent Auto 4.8 % (0-4); Hematocrit 39.2 % (37.0-47.0); Hemoglobin 13.2 g/dl (12.0-16.0); Imm Gran Abs Auto 0.01 X10*3/uL (0.00-0.03); Imm Gran Pct Auto 0.2 % (0.0-0.4); Lymphocytes Absolute Auto 1.8 X10*3/uL (1.2-4.9); Lymphocytes Percent Auto 29.5 % (20-40); MANUAL DIFF FLAG NO; Mean Corpuscular HGB Conc 33.7 g/dl (31.0-35.0); Mean Corpuscular Hemoglobin 29.7 pg (27.0-33.0); Mean Corpuscular Volume 88.1 fL (80.0-98.0); Mean Platelet Volume 10.7 fL (9.4-12.3); Monocytes Absolute Auto 0.7 X10*3/uL (0.1-1.2); Monocytes Percent Auto 10.9 % (2-11); Neutrophils Absolute Auto 3.2 x10*3/uL (2.0-8.3); Neutrophils Percent Auto 53.1 % (45-73); Platelet Count 265 X10*3/uL (160-400); Red Blood Count 4.45 X10*6/uL (4.20-5.50); Red Cell Distribution Width 14.3 % (11.0-16.0)
--- NOTE | 2024-06-08 04:41 | ED.URI ---
HPI - URI/Sore Throat General Chief Complaint: Upper Respiratory Symptoms Stated Complaint: SOB, asthma Time Seen by Provider: 06/08/24 04:31 Source: patient Mode of arrival: ambulatory Limitations: no limitations History of Present Illness ED Provider: HPI Narrative: Patient's history of hypertension severe asthma GEORGIE on CPAP, GERD comes here for increased shortness a breath, dry cough and headache for last 2 days also does have inflamed conjunctiva with purulent discharge from both eyes patient has been using inhaler nebulizing treatment without much relief Related Data Home Medications ?Medication ?Instructions ?Recorded ?Confirmed clonazepam 0.5 mg tablet 0.5 mg PO BEDTIME 10/17/21 10/30/23 hydroxyzine HCl 25 mg tablet 25 mg PO BEDTIME anxiety 10/17/21 10/30/23 nebulizers 11/28/21 CPAP (CPAP Machine/Device) 04/06/22 duloxetine 30 mg capsule,delayed 30 mg PO BID 06/27/22 10/30/23 release omega-3 300 mg-dha 120 mg-epa 180 1 cap PO DAILY 06/27/22 10/30/23 mg-fish oil 1,000 mg capsule azelastine 137 mcg (0.1 %) nasal 2 spray intranasal BID 10/30/23 10/30/23 spray clonazepam 0.5 mg tablet 0.5 mg PO DAILY PRN anxiety 10/30/23 10/30/23 fluticasone furoate 200 1 ea inhalation DAILY 10/30/23 10/30/23 mcg-vilanterol 25 mcg/dose inhalation powder (Breo Ellipta) lidocaine 5 % topical patch 1 patch topical DAILY PRN Pain 10/30/23 10/30/23 (Lidoderm) metoprolol tartrate 50 mg tablet 50 mg PO BID 10/30/23 10/30/23 umeclidinium 62.5 mcg/actuation 1 inh inhalation DAILY 10/30/23 10/30/23 blister powder for inhalation (Incruse Ellipta) levalbuterol tartrate 45 1 puff inhalation Q4-6H PRN 12/03/23 mcg/actuation aerosol inhaler (Xopenex HFA) Previous Rx's ?Medication ?Instructions ?Recorded omalizumab 150 mg/mL subcutaneous 150 mg subcut Q2W 4 weeks #2 mL 08/24/23 syringe (Xolair) levocetirizine 5 mg tablet 5 mg PO DAILY #30 tabs 04/05/23 furosemide 20 mg tablet (Lasix) 20 mg PO DAILY 7 days #7 tabs 05/27/23 albuterol sulfate 2.5 mg/3 mL 2.5 mg (3 mL) inhalation Q6H PRN 10/01/23 (0.083 %) solution for nebulization for wheezing 30 days #180 mL jycjnnadvy-brqvvlbvziooe-vymsvrig 1 tab PO Q4H PRN Headache #20 tabs 11/01/23 50 mg-325 mg-40 mg tablet cefuroxime axetil 500 mg tablet 500 mg PO BID #10 tabs 11/01/23 guaifenesin 600 mg tablet, 600 mg PO BID #10 tabs 11/01/23 extended release 12 hr (Mucinex) omeprazole 20 mg capsule,delayed 20 mg PO DAILY@0630 #90 caps 11/01/23 release azithromycin 250 mg tablet 250 mg PO 3XW 28 days #12 tabs 12/03/23 budesonide 0.5 mg/2 mL suspension 0.5 mg (2 mL) inhalation BID 30 12/03/23 for nebulization days #120 mL tdeuyh-bgvvdpqy-vfqfinm 2 cap PO BID #120 caps 01/03/24 36,000-114,000-180,000 unit capsule,delay rel (Creon) clfustjz-cwwjnqewh-hfwsjnzm 3.5 1 drp ophthalmic (eye) Q12H 10 02/03/24 mg/mL-10,000 unit/mL-0.1% eye drops days #5 mL pantoprazole 40 mg tablet,delayed 40 mg PO BID #60 tabs 02/10/24 release epinephrine 0.3 mg/0.3 mL 0.3 mg (0.3 mL) IM Q10M PRN 03/03/24 injection, auto-injector (EpiPen anaphylaxis 30 days #2 ea 2-Rell) sucralfate 1 gram tablet 2 g (2 x 1 gram) PO DAILY #60 tabs 03/12/24 acetaminophen 500 mg capsule 1,000 mg (2 x 500 mg) PO Q8H PRN 05/29/24 fever or pain #14 caps cetirizine 10 mg tablet 10 mg PO DAILY PRN allergy 05/29/24 symptoms #14 tabs ibuprofen 400 mg tablet 400 mg PO Q6H PRN pain #14 tabs 05/29/24 ipratropium bromide 17 2 puff inhalation Q8H #12.9 grams 06/02/24 mcg/actuation HFA aerosol inhaler (Atrovent HFA) codeine 10 mg-guaifenesin 100 mg/5 10 ml PO Q6H PRN cough #237 mL 06/08/24 mL oral liquid prednisone 20 mg tablet 40 mg (2 x 20 mg) PO DAILY #10 tabs 06/08/24 tobramycin 0.3 % eye drops 1 drp ophthalmic (eye) Q4H #5 mL 06/08/24 Allergies Allergy/AdvReac Type Severity Reaction Status Date / Time Penicillins Allergy Severe hives, Verified 06/08/24 04:09 swelling pollen extracts [POLLEN] Allergy Severe ITCHING Verified 06/08/24 04:09 peanut [PEANUT] Allergy Intermediate RASH Verified 06/08/24 04:09 plum Allergy Severe swelling Uncoded 06/08/24 04:09 Review of Systems Review of Systems: Yes all other systems are reviewed and are negative [facility] Past Medical History Medical History Personal history of nicotine dependence Morbid obesity GEORGIE (obstructive sleep apnea) (~2007) Tubular adenoma of colon (~2014) Chronic allergic rhinitis Bronchitis Asthma Surgical History History of endometrial ablation History of colonoscopy History of section Family History Family History Father No problems noted. Mother Family history of cancer Brother Lung cancer, Onset Age: 40 Maternal Aunt Lymphoma Family/Other Breast cancer Social History Social History Household Members: Children Housing: House Do you presently have visiting nurse or other home services: No Alcohol intake: never Patient Tobacco Use Status: Never used Tobacco Tobacco use type: Cigarette Years Smoked: (onset 22yo, 1ppd x 39yrs, 35PYH - quit 2021) Smoked in Last 30 Days: No e-Cigarette/Vaping Use: Never Used Second Hand Smoke Exposure: No Use of substances other than those prescribed or required for medical reasons: No Any prior treatment program specific to substance use: No Advance Directives: Yes Advance Directives on File: Yes Advance Directives Date on File: 11/04/23 Do you have a plan to hurt others: No Plan Patient : No Current occupational status: disabled 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 Oriented X3. No acute distress. Eyes: PERRLA, No Nystagmus ENT: Pharynx normal. Oral Mucosa moist Neck: Normal inspection. Neck supple. CVS: Normal heart rate and rhythm. Pulses normal. Respiratory: No respiratory distress. Equal air entry bilateral, no wheezing/rales/rhonchi Abdomen: Soft and nontender. Bowel sounds are present, no mass palpable, no CVA tenderness Skin: Skin warm and dry. Normal skin color. Normal skin turgor. Extremities: No lower extremity edema. No calf tenderness Neuro: Oriented X 3. No motor deficit. No sensory deficit.No cerebellar signs , cranial nerves II-XII intact Medications Administered Discontinued Medications Generic Name Dose Route Start Last Admin Trade Name Freq PRN Reason Stop Dose Admin Albuterol Sulfate 2.5 mg/ 0 mg 06/08/24 05:03 06/08/24 05:26 Albuterol/Ipratropium 3 ml INHALE 06/08/24 05:04 1 dose ONCE ONE Administration Guaifenesin/Codeine Phosphate 10 ml 06/08/24 05:04 06/08/24 06:04 Guaifen/Codeine Sf 200/20/10ml 10 Ml Liquid PO 06/08/24 05:05 10 ml ONCE ONE Administration Prednisone 60 mg 06/08/24 05:03 06/08/24 06:04 Prednisone 20 Mg Tablet PO 06/08/24 05:04 60 mg ONCE ONE Administration Tobramycin Sulfate 2 drop 06/08/24 05:04 06/08/24 06:04 Tobramycin Sulfate 0.3% Joelle Op 5 Ml Btl EYE-BOTH 06/08/24 05:05 2 drop ONCE ONE Administration Medical Decision Making Medical Decision Making [facility] Narrative: Patient's asthma sleep apnea comes here with cough and wheezing COVID flu RSV negative chest x-ray also negative patient improved after prednisone and DuoNeb treatment will discharge patient home on prednisone cough syrup Differential Diagnosis Differential Diagnoses: The differential diagnosis associated with the presentation includes Viral pneumonia/bronchitis/pneumonia Lab Data [facility] Lab Attestation statement: I reviewed the patient's lab results. 06/08/24 04:36 06/08/24 04:36 Labs: Lab Results 06/08/24 Range/Units 04:36 WBC 6.0 (4.8-10.8) X10*3/uL RBC 4.45 D (4.20-5.50) X10*6/uL Hgb 13.2 D (12.0-16.0) g/dl Hct 39.2 D (37.0-47.0) % MCV 88.1 (80.0-98.0) fL MCH 29.7 (27.0-33.0) pg MCHC 33.7 (31.0-35.0) g/dl RDW 14.3 (11.0-16.0) % Plt Count 265 (160-400) X10*3/uL MPV 10.7 (9.4-12.3) fL Immature Gran % (Auto) 0.2 (0.0-0.4) % Neut % (Auto) 53.1 (45-73) % Lymph % (Auto) 29.5 (20-40) % [place] % (Auto) 10.9 (2-11) % Eos % (Auto) 4.8 H (0-4) % Baso % (Auto) 1.5 (0-2) % Lymph # (Auto) 1.8 (1.2-4.9) X10*3/uL [place] # (Auto) 0.7 (0.1-1.2) X10*3/uL Eos # (Auto) 0.3 (0.0-0.4) X10*3/uL Baso # (Auto) 0.1 (0.0-0.2) X10*3/uL Abs Immat Gran (auto) 0.01 (0.00-0.03) X10*3/uL Absolute Neuts (auto) 3.2 (2.0-8.3) x10*3/uL Absolute Nucleated RBC 0.000 (0.0-0.012) X10*3/uL Nucleated RBC % (auto) 0.0 (0.0-0.2) /100WBC Sodium 141 (135-145) mmol/L Potassium 3.5 (3.3-5.1) mmol/L Chloride 107 (96-108) mmol/L Carbon Dioxide 25 (22-29) mmol/L Anion Gap 13 (12-20) BUN 9 (9-16) mg/dL Creatinine 0.85 (0.5-1.4) mg/dL Estim Creat Clear Calc 68.9 Estimated GFR > 60 Random Glucose 95 (60-115) mg/dL Calcium 9.1 (8.4-10.2) mg/dL Total Bilirubin 0.9 (0.0-1.0) mg/dL AST 27 (5-31) U/L ALT 15 (0-31) U/L Alkaline Phosphatase 82 (39-117) U/L Total Protein 7.3 (6.5-8.0) g/dL Albumin 3.9 (3.5-5.0) g/dL Influenza Type A (PCR) NEGATIVE (Negative) Influenza Type B (PCR) NEGATIVE (Negative) RSV RNA Qual (PCR) NEGATIVE (Negative) SARS-CoV-2 RNA (RT-PCR) NEGATIVE (Negative) Independent Interpretation I performed an independent interpretation of an: Plain X-Ray Interpretation: NAD Radiology Impression Discussion of test interpretation with radiology: I have reviewed the radiologist's reading. Discharge Plan Discharge Clinical Impression: Bronchitis, Conjunctivitis Asthma Qualifiers: Asthma severity: severe Asthma persistence: persistent Asthma complication type: uncomplicated Qualified Code(s): J45.50 - Severe persistent asthma, uncomplicated Patient Disposition: Home, Self-Care Instructions: Asthma (ED), Acute Bronchitis (ED), Conjunctivitis (ED) Additional Instructions: Continue to use your inhaler/nebulizer Prednisone as prescribed Eyedrops for conjunctivitis as prescribed Follow the PCP if not better Prescriptions: New prednisone 20 mg tablet 40 mg PO DAILY Qty: 10 0RF codeine-guaifenesin 10-100 mg/5 mL liquid 10 ml PO Q6H PRN (Reason: cough) Qty: 237 0RF tobramycin 0.3 % drops 1 drp ophthalmic (eye) Q4H Qty: 5 0RF No Action Xolair 150 mg/mL syringe 150 mg subcut Q2W 28 Days Qty: 2 11RF Rx Instructions: On Fridays Next Dose 11/01/23 Creon 36,000-114,000- 180,000 unit capsule,delayed release(DR/EC) 2 cap PO BID Qty: 120 6RF pantoprazole 40 mg tablet,delayed release (DR/EC) 40 mg PO BID Qty: 60 6RF epinephrine [EpiPen 2-Rell] 0.3 mg/0.3 mL auto-injector 0.3 mg IM Q10M PRN (Reason: anaphylaxis) 30 Days Qty: 2 6RF Rx Instructions: for 2 doses sucralfate 1 gram tablet 2 g PO DAILY Qty: 60 3RF Atrovent HFA 17 mcg/actuation HFA aerosol inhaler 2 puff INHALATION Q8H Qty: 12.9 11RF clonazepam 0.5 mg tablet 0.5 mg PO DAILY PRN (Reason: anxiety) azelastine 137 mcg (0.1 %) spray,non-aerosol 2 spray intranasal BID Incruse Ellipta 62.5 mcg/actuation blister with device 1 inh INHALATION DAILY lidocaine [Lidoderm] 5 % adhesive patch,medicated 1 patch topical DAILY PRN (Reason: Pain) Rx Instructions: leave on most painful area for up to 12 hrs metoprolol tartrate 50 mg tablet 50 mg PO BID fluticasone furoate-vilanterol [Breo Ellipta] 200-25 mcg/dose blister with device 1 ea INHALATION DAILY cefuroxime axetil 500 mg tablet 500 mg PO BID Qty: 10 0RF xzhlgxrepy-ctatogcxqyvfa-oqfg 50-325-40 mg Tablet 1 tab PO Q4H PRN (Reason: Headache) Qty: 20 0RF omeprazole 20 mg Capsule,Delayed Release(Dr/Ec) 20 mg PO DAILY@0630 Qty: 90 0RF guaifenesin [Mucinex] 600 mg Tablet Extended Release 12hr 600 mg PO BID Qty: 10 0RF acetaminophen 500 mg capsule 1,000 mg PO Q8H PRN (Reason: fever or pain) Qty: 14 0RF ibuprofen 400 mg tablet 400 mg PO Q6H PRN (Reason: pain) Qty: 14 0RF cetirizine 10 mg tablet 10 mg PO DAILY PRN (Reason: allergy symptoms) Qty: 14 0RF clonazepam 0.5 mg tablet 0.5 mg PO BEDTIME (DME) CPAP Machine/Device Device See Rx Instructions .ROUTE Rx Instructions: As directed hydroxyzine HCl 25 mg tablet 25 mg PO BEDTIME (DME) nebulizers Misc See Rx Instructions .ROUTE Rx Instructions: As directed duloxetine 30 mg capsule,delayed release(DR/EC) 30 mg PO BID omega 0-gzi-vpu-fish oil 300 mg (120 mg- 180mg)-1,000 mg capsule 1 cap PO DAILY furosemide [Lasix] 20 mg tablet 20 mg PO DAILY 7 Days Qty: 7 0RF levalbuterol tartrate [Xopenex HFA] 45 mcg/actuation HFA aerosol inhaler 1 puff inhalation Q4-6H PRN budesonide 0.5 mg/2 mL suspension for nebulization 0.5 mg inhalation BID 30 Days Qty: 120 11RF azithromycin 250 mg tablet 250 mg PO 3XW 28 Days Qty: 12 0RF Rx Instructions: Take 1 tablet on Saturday/Saturday/Saturday levocetirizine 5 mg tablet 5 mg PO DAILY Qty: 30 11RF neomycin-polymyxin B-dexameth 3.5mg/mL-10,000 unit/mL-0.1 % drops,suspension 1 drp ophthalmic (eye) Q12H 10 Days Qty: 5 0RF albuterol sulfate 2.5 mg /3 mL (0.083 %) solution for nebulization 2.5 mg inhalation Q6H PRN (Reason: for wheezing) 30 Days Qty: 180 11RF Print Language: Greenlandic
[2024-06-08 04:58] LABS: Alanine Aminotransferase 15 U/L (0-31); Albumin Level 3.9 g/dL (3.5-5.0); Alkaline Phosphatase 82 U/L (39-117); Anion Gap 13 (12-20); Aspartate Amino Transferase 27 U/L (5-31); Bilirubin Total 0.9 mg/dL (0.0-1.0); Blood Urea Nitrogen 9 mg/dL (9-16); Calcium 9.1 mg/dL (8.4-10.2); Carbon Dioxide 25 mmol/L (22-29); Chloride 107 mmol/L (96-108); Creatinine Clr Calc Pharmacy 68.9; Estimated Glomerular Filt Rate > 60; Glucose Random 95 mg/dL (60-115); Potassium 3.5 mmol/L (3.3-5.1); Sodium 141 mmol/L (135-145); Total Protein 7.3 g/dL (6.5-8.0)
[2024-06-08 05:17] LABS: Influenza A PCR NEGATIVE (Negative); Influenza B PCR NEGATIVE (Negative); Resp Syncy Virus RNA Qual PCR NEGATIVE (Negative); SARS COV2 PCR INHOUSE NEGATIVE (Negative)
[2024-06-08] MEDS: Albuterol Sulfate 2.5 MG, Albuterol/Iprat 2.5/0.5MG 3 ML 3 ML INHALE (05:26)
[2024-06-08 05:27] VITALS: PULSE 83; RESP 18; O2SAT 96
[2024-06-08] MEDS: Tobramycin Sulfate 0.3% Sol Op 5 ML BTL 2 DROP EYE-BOTH (06:04)
[2024-06-08] MEDS: guaiFEN/Codeine SF 200/20/10ML 10 ML LIQUID PO (06:04)
[2024-06-08] MEDS: predniSONE 20 MG TABLET 60 MG PO (06:04)
--- NOTE | 2024-06-08 06:20 | PC.NURSE ---
pt medicated with oral cough with codiene. plan is to discharge pt. provider aware of headache.
[2024-06-08 06:32] VITALS: BP 136/70; PULSE 83; RESP 18; TEMP 36.8; O2SAT 97
== END 2024-06-08 06:34 | disposition home or self-care (01) ==
PROVIDERS: Emergency Provider Internal Medicine; PCP Registered Nurse
DX: J40 Bronchitis, not specified as acute or chronic (principal); H10.9 Unspecified conjunctivitis; J45.50 Severe persistent asthma, uncomplicated; R06.02 Shortness of breath; R05.9 Cough, unspecified; R51.9 Headache, unspecified; Z03.818 Encounter for observation for suspected exposure to other biological agents ruled out
CPT/HCPCS: 0241U; 71045; 80053; 85025; 94640; 99284

== ENCOUNTER → 2024-06-08 04:18 | Outpatient (BNV) | payer OTHER, SELFPAY | PROVIDERS: Emergency Provider Internal Medicine; PCP Registered Nurse; Visit Provider Radiology Diagnostic Radiology | DX: R05.9 Cough, unspecified (principal) | CPT/HCPCS: 71045 ==

== ENCOUNTER 2024-06-11 09:59 | Outpatient (AMB) | payer OTHER, SELFPAY ==
[2024-06-11 10:12] VITALS: BP 120/74; PULSE 68; O2SAT 95; BMI 41.2
--- NOTE | 2024-06-11 10:12 | A.OFFVIS_ITS ---
Vital Signs 06/11/24 10:12 Height 4 ft 11 in Weight 203 lb 14.841 oz BMI 41.2 BP 120/74 Blood Pressure Location Rt brachial Position Sitting Pulse 68 Pulse Source Pulse Oximeter Pulse Oximetry (%) 95 Oxygen Delivery Method Room Air Intake Visit Reasons: Asthma Allergies Penicillins Allergy (Severe, Verified 06/08/24 04:09) hives, swelling pollen extracts [POLLEN] Allergy (Severe, Verified 06/08/24 04:09) ITCHING peanut [PEANUT] Allergy (Intermediate, Verified 06/08/24 04:09) RASH plum Allergy (Severe, Uncoded 06/08/24 04:09) swelling HPI Comments Details: The patient is a 63-year-old woman with known severe persistent asthma follow closely by Allergy and also pulmonary. She is currently on Xolair and is also on Breo and Atrovent HFA. She has felt that her respiratory symptoms have improved on this medication. However, lately the last week or 2 she is having more chest congestion and wheezing. She is having to use her nebulizer up to 4 times a day. She is trying to expectorate phlegm and is usually clear in color. Denies any fevers or chills or night sweats or body aches. She also complains of nasal congestion and is feels like she is having better allergies at this time. She has tried multiple nasal spray with a no significant improvement. 04/06/2022 the patient is here for a pulmonary follow-up visit. She has been having hard time with her breathing. Complains of chest tightness and wheezing. Moderate severity. Her inhalers have not been completely effective. She also complains of chest congestion and cough. She is bringing up yellowish phlegm. Difficult to expectorate. In addition to that she is having hard time with her CPAP. The CPAP is shutting off in the middle the night and she has a hard time because of the shortness of breath. She will have Robb go to her home to address the issues with her machine. If the machine is broken beyond repair she is going to [facility] replacement. She will call us once after she has evaluation to make sure that we address any issues with her CPAP. In the meantime the CPAP therapy has been very affecting beneficial when he was working properly. I did adjust the pressures a little bit I increased her maximum pressure to 16. She is using nasal pillows. I did talk about considering getting a chinstrap in order to minimize air leakage in case that is causing the machine to shot up by itself. 06/01/2022 the patient is here for a pulmonary follow-up visit. She was doing well until couple days ago when she started developing sinus pain pressure and postnasal drip. She feels congested. She feels like this will go down to her lungs and resulting worsening respiratory complaints. She read treated now. The patient has been using her respiratory medications although she does not have all them available. I will make sure to sent to the pharmacy. She did bring her new CPAP. The CPAP therapy continues to be affecting beneficial. She does use it more than 4 hours. Last night she only used it for 3 hours because she fell asleep washing TV. She is aware that if she does not use it enough she with on going to be able to get supplies. The patient is using nasal pillows. They appear to be affected with the go ahead and send [facility] a prescription for renewal of her supplies at this time. She continues on the Xolair injections. The been affecting beneficial. 11/26/2022 the patient is here for pulmonary follow-up visit. The patient has not been feeling well for couple days. She did tested negative for COVID yesterday. Started having flu-like symptoms. Sore throat and also cough. She is having some chest congestion. She is using her nebulizer more often. Prior to this illness she was doing just fine her current respiratory regimen. She continues on the Xolair injections. The patient also continues her CPAP therapy she does use it more than 4 hours a night. She does get supplies from [facility]. We had sent a prescription back in May but she has yet to receive them. Therefore, will send another script for her to continue getting her supplies to her [employer]. Will go ahead and swab her for flu RSV and COVID right now. If the patient has abnormal result I will let her know. Otherwise she will start a prednisone taper and some antibiotics to treat her for a respiratory infectious process. 04/05/2023 the patient is here for sick visit. She has been sick now for about 4 days. She started developing fevers and chills. Also nasal congestion and sore throat. The patient was noticing increasing chest tightness shortness of breath and wheezing. Therefore she called for an appointment. The patient did have a nasal swab in the office. Was negative for RSV, flu and COVID-19. The patient does have significant wheezing on examination. She is also coughing with some chest congestion. Mucus is yellowish in color. The patient has been using her respiratory therapy. She needs an additional nebulized therapy. She continues use Mucinex as needed for the chest congestion. This time will going to go ahead and send the additional medications to the pharmacy to treat an asthma exacerbation due to a viral syndrome. She is also struggling getting supplies from her [employer] [employer]. We did call them it seems that everything is up today. However she needs to make an appointment to be able to picking tech her equipment. She is using the P 10 mask the seems to be the most comfortable for her. 07/30/2023 the patient is here for pulmonary follow-up visit. Overall she is doing well. The patient has been taking the Xolair once a month and seems to be more effective for her she continues on respiratory inhalers. Some mixup with the inhalers. She was supposed to be on Trelegy but only taking Incruse. Therefore explained to her the importance of being on the Trelegy or adding the Breo to her Incruse if is not covered. She will call the office if she can go on Trelegy. She is having issues with back pain and muscle pain. She is waiting for if physical therapy evaluation. In the meantime the patient continues with respiratory therapy with good effect. Seems like her new nasal sprays that working more effectively and the patient has been able to tolerate CPAP. CPAP therapy continues to be affecting beneficial. Otherwise she is wi thout any other complaints. Will follow-up in 4-6 months. 10/01/2023 this is a telehealth visit. The patient called yesterday about testing positive for COVID. She has been having worsening cough chest congestion wheezing. She has been using her nebulizer every 6 hours. Sometimes every 4 hours. She still having hard time. She did picking tech the Paxlovid she did start yesterday. Seems to be tolerating it. In the meantime she is having a productive cough with yellow phlegm. She is going to monitor that. If the chest congestion and phlegm is not improving in the next 24 hours she can go ah ead and start doxycycline. I will also give her low-dose prednisone that she can also start to make sure does not interact too much with the Paxlovid. If her condition worsens more than that she can always call the office but she would need to be seen in the ER. I am hopeful though that in the next 24:48 hours she should start feeling better on the Paxlovid. 12/03/2023 the patient is here for a pulmonary follow-up visit. She is not doing well after having COVID. The patient was scheduled to undergo eye surgery but she was not doing well from a respiratory status and therefore her surgery was postponed in order for her to get a pulmonary evaluation. She has been having worsening cough with chest congestion. Also complaining of shortness of breath. Frhi-ni-peviyurx severity. She has been on Breo and also on Incruse. Although she has not seen any significant improvement of her symptoms. She also had a prescription for prednisone but she did not take it because it does give her adverse effects. Think at this point be reasonable to try him budesonide along with switching over to Trelegy. And hopefully we can put her on a mild antibiotic to see if we can improve her symptoms of chronic bronchitis. If the patient is no better she will call. Hopefully she is feels better after several weeks of therapy and she can have her eye surgery. 02/03/2024 the patient is here for a pulmonary follow-up visit. The patient overall has been doing well. She continues her respiratory medicine with good effect. The patient has continue the Xolair injections also have been affecting beneficial. Respiratory johnston she is doing well. She is also using the CPAP. CPAP therapy continues to be affecting beneficial. She does use it more than 4 hours a night. The only complaint that she has her eyes are irritating and drippy. She did well with the eyedrop C4. Will go ahead and reorder them for her. 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 06/11/2024 the patient is here for a pulmonary follow-up visit. Patient has been sick now for few days. She actually went to the ER back on the because he did not feel well with worsening chest tightness coughing wheezing. She did have a chest x-ray and blood work which was all negative. She was given Zyrtec for allergies. Today she still has worsening symptoms with chest congestion chest tightness. She does have some inflammation around the conjunctiva right more than left. She has stopped her Xolair injections because she has changed insurance. She will have to resume them. In the meantime will continue her on respiratory therapy. But I suspect that this is more than allergies that she likely has a viral illness that exacerbate her asthma symptoms. Will go ahead start her on some prednisone and also give her short course of azithromycin. The patient can continue taking the Xyzal in addition to the Astelin nasal spray and she is also using Benadryl as needed. We can also add Pepcid to her regimen for the H2 blocking effect. Hopefully her symptoms improved after she goes back on Xolair. Will have to resubmit it with her new insurance. [facility] Medical History Personal history of nicotine dependence Morbid obesity GEORGIE (obstructive sleep apnea) (~2007) Tubular adenoma of colon (~2014) Chronic allergic rhinitis Bronchitis Asthma Surgical History History of endometrial ablation History of colonoscopy History of section Family History Father No problems noted. 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 Review of Systems Const Denies body aches, Reports difficulty sleeping, Denies fatigue and Denies fever(s) Eyes Reports irritation and Reports itchy eyes ENT Denies change in voice, Denies lip swelling, Reports nasal congestion, Reports nasal discharge and Reports post nasal drip Card Denies chest pain, Reports leg edema and Reports dyspnea on exertion Resp Denies change in phlegm color, Reports chest congestion, Reports cough, Reports dyspnea on exertion, Denies stridor and Reports wheezing GI Denies abdominal pain Musc Denies no additional complaints Neuro Denies Neuro-related abnormal movements Psych Denies no additional complaints Endo Denies fatigue Dalton/Lymph Denies easy bleeding and Denies lymphadenopathy Aller/Immun Reports itchy eyes, Denies lip swelling and Reports wheezing Physical Exam Vital Signs: Last Vital Signs Pulse 68 06/11/24 10:12 BP 120/74 06/11/24 10:12 Pulse Ox 95 06/11/24 10:12 Oxygen Delivery Method Room Air 06/11/24 10:12 BMI result Body Mass Index 41.2 Const General: alert Eyes Conjunctivae: conjunctival abnormal bilateral conjunctival injection and discharge Pupils: Equal, round and reactive pupils present Neck Neck: Yes normal visual inspection, Yes full ROM and Yes no lymphadenopathy Chest Chest palpation & inspection: normal inspection of the chest Resp Effort & Inspection: normal respiratory effort and prolonged expiratory phase Auscultation: rhonchi, wheezes and diminished lung sounds Cardio Rate: regular rate Rhythm: regular rhythm Heart sounds: S1 normal heart sound present and S2 normal heart sound present GI Palpation (GI): Soft to palpation and nontender Auscultation: normal bowel sounds Skin General skin exam: rashes and/or lesions noted Neuro Cranial nerves: Yes Equal, round and reactive pupils present Extrem General: Yes edema Assessment & Plan Assessment & Plan (1) Asthma: Code(s): J45.909 - Unspecified asthma, uncomplicated Category: Medical Qualifiers: Asthma complication type: with acute exacerbation Asthma persistence: persistent Asthma severity: severe Qualified Code(s): J45.51 - Severe persistent asthma with (acute) exacerbation (2) Chronic allergic rhinitis: Code(s): J30.9 - Allergic rhinitis, unspecified Category: Medical (3) GEORGIE (obstructive sleep apnea): Onset Date: ~2007 Code(s): G47.33 - Obstructive sleep apnea (adult) (pediatric) Category: Medical (4) GERD (gastroesophageal reflux disease): Code(s): K21.9 - Gastro-esophageal reflux disease without esophagitis Category: Medical Qualifiers: Esophagitis presence: without esophagitis Qualified Code(s): K21.9 - Gastro-esophageal reflux disease without esophagitis Plan Short-acting beta agonist as needed Trelegy inhaler 200 mcg daily Epi pen as needed start Prednisone taper start Azithromycin start Pepcid Benadryl as needed Qnasl Astelin nasal spray Antihistamines Needs to restart Xolair twice a month continue CPAP , needs supplies weight management Lung cancer screening program Follow-up in 3-4 months Orders: Orders Complete Blood Count Auto Diff Today J45.50 - Severe persistent asthma, uncomplicated Basic Metabolic Panel Today J45.50 - Severe persistent asthma, uncomplicated Hypersensitive Pneumonitis Prf Today J45.50 - Severe persistent asthma, uncomplicated, R91.8 - Other nonspecific abnormal finding of lung field Immunoglobulin E Today J45.50 - Severe persistent asthma, uncomplicated Medications: New famotidine (Pepcid) 40 mg PO DAILY 30 tabs 4RF 30 days prednisone PO daily; Take 2 tabs daily x 5 days, then 1 tablet daily x 5 days 15 tabs 0RF 10 days azithromycin 500 mg PO DAILY 5 tabs 0RF 5 days Coding Level of Care Code Est Pt Level 4 (96209) Complex EM visit Add On G2211 Diagnoses Severe persistent asthma with acute exacerbation J45.51 Asthma complication type: with acute exacerbation Asthma persistence: persistent Asthma severity: severe Chronic allergic rhinitis J30.9 GEORGIE (obstructive sleep apnea) G47.33 Gastroesophageal reflux disease without esophagitis K21.9 Esophagitis presence: without esophagitis Time Spent (min) 17
--- OUTSIDE RECORDS SUMMARY | 2024-06-11 11:40 | XMS_ITS | Clinical Summary ---
Author Organization [address] Address [address] [place] [id number] Care Team Providers Care Engineering Agent Name Role Phone Halima Hickman MD Primary [...] - 144 mmol/L 10/13/2017 4:37 PM EDT [facility] Potassium 3.4 3.4 - 4.8 mmol/L 10/13/2017 4:37 PM EDT [facility] Chloride 107 98 - 107 mmol/L 10/13/2017 4:37 PM EDT [facility] CO2 24 20 - 30 mmol/L [facility] Anion Gap 11 7 - 17 10/13[facility]2017 [facility] Glucose 142(H) 70 - 100 mg/dL 10/13/2017 4:37 PM EDT [facility] BUN 10 8 - 18 mg/dL 10/13/2017 4:37 PM EDT [facility] Creatinine 0.90 0.40 - 1.30 mg/dL 10/13[facility]2017 [facility] Calcium 8.8 8.8 - 10.2 mg/dL 10/13/2017 [facility] BUN/Creatinine Ratio 11.1 8.0 - 23.0 10/13/2017 4:37 PM EDT [facility] eGFR (Afr Amer) >60 >60 mL/min/1.7 3m2 10/13/2017 4:37 PM EDT [facility] Comment: Values under 60mL/min/1.73m2 may indicate CKD if noted for ?? more than 3 months. eGFR is only valid if creatinine is at steady state. eGFR (NON -Jessie n) >60 >60 mL/min/1.7 3m2 10/13/2017 4:37 PM EDT [facility] Comment: Values under 60mL/min/1.73m2 may indicate CKD if noted for ?? more than 3 months. eGFR is only valid if creatinine is at steady state. Blood specimen (specimen) Venipuncture / Unknown 10/13/2017 4:07 PM EDT 10/13/2017 4:09 PM EDT Luis Mederos MD LAB BLOOD ORDERABLES Final Resu lt [facility] [address] [place] [address], [facility] [phone] from Last 3 Months or Most Recently Relevant to Health Maintenance Insurance [id number] MEDICAID [id number] MEDICAID [id number] MEDICAID Care Teams Engineering Agent Relationship Specialty Start Date End Date Halima Hickman MD PCP - General 10/13/17
== END 2024-06-11 10:35 | disposition home or self-care (01) ==
LOC: HO.HPS 09:59
PROVIDERS: PCP Registered Nurse; Visit Provider Hospitalist
DX: J45.51 Severe persistent asthma with (acute) exacerbation (principal); J30.9 Allergic rhinitis, unspecified; G47.33 Obstructive sleep apnea (adult) (pediatric); K21.9 Gastro-esophageal reflux disease without esophagitis
CPT/HCPCS: 99214; G2211

== ENCOUNTER → 2024-06-11 09:59 | Outpatient (BNVA) | payer OTHER, SELFPAY | PROVIDERS: PCP Registered Nurse; Visit Provider Hospitalist | DX: J45.51 Severe persistent asthma with (acute) exacerbation (principal); J30.9 Allergic rhinitis, unspecified; G47.33 Obstructive sleep apnea (adult) (pediatric); K21.9 Gastro-esophageal reflux disease without esophagitis | CPT/HCPCS: 99212 ==

== ENCOUNTER 2024-07-10 10:26 | Outpatient (AMB) | payer MEDICAID, SELFPAY ==
--- NOTE | 2024-07-10 10:29 | A.OFFVIS_ITS ---
Intake Visit Reasons: Right Shoulder Bursitis -last inj-07/05/22 NE Intake Note: Rita is a 63 year old right hand dominant female who presents today for a follow up of her Right Shoulder Bursitis. Last injection for the right shoulder was administered on 07/05/2022. Patient reports that the injection was helpful and would like to repeat today Allergies Penicillins Allergy (Severe, Verified 07/10/24 10:29) hives, swelling pollen extracts [POLLEN] Allergy (Severe, Verified 07/10/24 10:29) ITCHING peanut [PEANUT] Allergy (Intermediate, Verified 07/10/24 10:29) RASH plum Allergy (Severe, Uncoded 07/10/24 10:29) swelling HPI HPI Right Shoulder Bursitis -last inj-07/05/22 NE: Details: Krista is here for her right shoulder. She has pain with overhead activity and pain at night. It radiates in his subdeltoid distribution. She had an injection 2 years ago which was helpful and thought that might help again. [facility] Medical History Personal history of nicotine dependence Morbid obesity GEORGIE (obstructive sleep apnea) (~2007) Tubular adenoma of colon (~2014) Chronic allergic rhinitis Bronchitis Asthma Surgical History History of endometrial ablation History of colonoscopy History of section Family History Father No problems noted. 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 Site was prepped using aseptic technique. Patient tolerated the procedure well. Shoulders, Hips, Knees, Shoulder Injection Large joint : Right Shoulder Coding Procedure code (CPT) selection complete Assessment & Plan Assessment & Plan (1) Rotator cuff impingement syndrome: Code(s): M75.40 - Impingement syndrome of unspecified shoulder Category: Medical Qualifiers: Laterality: unspecified laterality Qualified Code(s): M75.40 - Impingement syndrome of unspecified shoulder Plan: 63-year-old with right shoulder rotator cuff impingement syndromes. I injected her right subacromial space today. Should her symptoms worsen she will see me. I did discuss physical therapy but she is not interested in pursuing this formally at at this time. Coding Level of Care Code Est Pt Level 3 (20059) Diagnoses Rotator cuff impingement syndrome, unspecified laterality M75.40 Laterality: unspecified laterality CPT Codes Shoulders, Hips, Knees, - Shoulder Injection Large joint : Right Shoulder ([id number])
--- OUTSIDE RECORDS SUMMARY | 2024-07-10 10:46 | XMS_ITS | Clinical Summary ---
Author Organization [address] Address [address] [place] [id number] Care Team Providers Care Consumer Services Advisor Name Role Phone Halima Hickman MD Primary [...] - 144 mmol/L 10/13/2017 4:37 PM EDT [facility] Potassium 3.4 3.4 - 4.8 mmol/L 10/13/2017 4:37 PM EDT [facility] Chloride 107 98 - 107 mmol/L 10/13/2017 4:37 PM EDT [facility] CO2 24 20 - 30 mmol/L 10/13/2017 4:[facility] Anion Gap 11 7 - 17 10/13/2017 4:37 [facility] Glucose 142(H) 70 - 100 mg/dL 10/13/2017 4:37 PM EDT [facility] BUN 10 8 - 18 mg/dL 10/13/2017 4:37 PM EDT [facility] Creatinine 0.90 0.40 - 1.30 mg/dL 10/13/2017 4:37 PM [facility] Calcium 8.8 8.8 - 10.2 mg/dL 10/13/2017 4:37 PM [facility] BUN/Creatinine Ratio 11.1 8.0 - 23.0 10/13/2017 4:37 PM EDT [facility] eGFR (Afr Amer) >60 >60 mL/min/1.7 3m2 10/13/2017 4:37 PM EDT [facility] Comment: Values under 60mL/min/1.73m2 may indicate CKD if noted for ?? more than 3 months. eGFR is only valid if creatinine is at steady state. eGFR (NON -Jessie n) >60 >60 mL/min/1.7 3m2 10/13/2017 4:37 PM EDT [facility] Comment: Values under 60mL/min/1.73m2 may indicate CKD if noted for ?? more than 3 months. eGFR is only valid if creatinine is at steady state. Blood specimen (specimen) Venipuncture / Unknown 10/13/2017 4:07 PM EDT 10/13/2017 4:09 PM EDT Luis Mederos MD LAB BLOOD ORDERABLES Final Resu lt [facility] [address] [place] [address], [facility] [phone] from Last 3 Months or Most Recently Relevant to Health Maintenance Insurance [id number] MEDICAID [id number] MEDICAID [id number] MEDICAID Care Teams Consumer Services Advisor Relationship Specialty Start Date End Date Halima Hickman MD PCP - General 10/13/17
== END 2024-07-10 10:57 | disposition home or self-care (01) ==
LOC: HO.HOS 10:27
PROVIDERS: PCP Registered Nurse; Visit Provider Orthopaedic Surgery
DX: M75.41 Impingement syndrome of right shoulder (principal)
CPT/HCPCS: 20610; 99213

== ENCOUNTER → 2024-07-10 10:26 | Outpatient (BNVA) | payer MEDICAID, SELFPAY | PROVIDERS: PCP Registered Nurse; Visit Provider Orthopaedic Surgery | DX: M75.40 Impingement syndrome of unspecified shoulder (principal) | CPT/HCPCS: 20610; 99212; J0665; J1100; J2003 ==

== ENCOUNTER 2024-07-15 11:25 | Outpatient (AMB) | payer OTHER, SELFPAY ==
[2024-07-15 11:27] VITALS: BP 139/76; PULSE 88; O2SAT 97; BMI 39.2
--- NOTE | 2024-07-15 11:27 | MHC.OFFVIS ---
Vital Signs 07/15/24 11:27 Height 4 ft 11 in Weight 194 lb 0.108 oz BMI 39.2 BP 139/76 Blood Pressure Location Lt brachial Position Sitting Pulse 88 Pulse Source Pulse Oximeter Pulse Oximetry (%) 97 Oxygen Delivery Method Room Air Intake Visit Reasons: Follow up medication/GERD Intake Note: Pt presents to the office today for a follow up medication/GERD. Rip Machine Operator Required: Yes Rip Machine Operator Language: Bangladeshi Allergies Penicillins Allergy (Severe, Verified 07/15/24 11:27) hives, swelling pollen extracts [POLLEN] Allergy (Severe, Verified 07/15/24 11:27) ITCHING peanut [PEANUT] Allergy (Intermediate, Verified 07/15/24 11:27) RASH plum Allergy (Severe, Uncoded 07/15/24 11:27) swelling HPI HPI Follow up medication/GERD: Details: Assessment & Plan (1) GERD (gastroesophageal reflux disease): Code(s): K21.9 - Gastro-esophageal reflux disease without esophagitis Qualifiers: Esophagitis presence: without esophagitis Qualified Code(s): K21.9 - Gastro-esophageal reflux disease without esophagitis (2) Cholelithiasis: Code(s): K80.20 - Calculus of gallbladder without cholecystitis without obstruction (3) Irritable bowel syndrome with constipation: Code(s): K58.1 - Irritable bowel syndrome with constipation Plan Bangladeshi #Estelle Live She never received the creon, it seems that it was not sent to the correct pharmacy so I re direct it. She is having a lot of HB and acid brash that comes on in the middle of the night, and on reviewing her medications she says her carafate tablets are packaged as twice a day and I want her to take it 2 tabs together to avoid blocking any other medications - I suspect on of her pantoprazole doses is being mal absorbed. I write to the pharmacy to correct this and suggest she take these at noon. No other medicine changes, no wt gain, no CIC or diarrhea. Medication changes are an increase of her metoprolol to 25mg bid. She has had more pain and trouble over the past 2 days, I am unsure if this is a GI BUG. Again she is to avoid fats as she has gallstones although the HIDA scan does not seem to indicate this is a great problem at this time. Rov 8 weeks to leonard reese. Also to evaluate changing the dosing of the Carafate to make sure it has not conflicting with the pantoprazole. Medications: Changed From sucralfate (Carafate) 2 grams (2 x 1 gram) PO DAILY 60 tabs 3RF K21.9 - Gastro-esophageal reflux disease without esophagitis To sucralfate (Carafate) PLEASE BE SURE TO PACKAGE IT 2 TABS AT THE SAME TIME, NOT TWICE A DAY TO AVOID THIS MEDICATION INTERFERING WITH THE ABSORPTION OF OTHER MEDICINES 2 grams (2 x 1 gram) PO DAILY 60 tabs 3RF K21.9 - Gastro-esophageal reflux disease without esophagitis From ffdqtm-bwleqxbw-oqizdxe 36,000-114,000- 180,000 unit (Creon) administer with meals and/or snacks 1 cap PO QID 120 caps 6RF K58.1 - Irritable bowel syndrome with constipation, K80.20 - Calculus of gallbladder without cholecystitis without obstruction To efhsrb-ycuvobad-vjphrcr 36,000-114,000- 180,000 unit (Creon) administer with meals and/or snacks 2 caps PO BID 120 caps 6RF K58.1 - Irritable bowel syndrome with constipation, K80.20 - Calculus of gallbladder without cholecystitis without obstruction Refilled yvfeoi-pzikaopo-njswjyg 36,000-114,000- 180,000 unit (Creon) administer with meals and/or snacks 1 cap PO QID 120 caps 6RF K58.1 - Irritable bowel syndrome with constipation, K80.20 - Calculus of gallbladder without cholecystitis without obstruction sucralfate (Carafate) 2 grams (2 x 1 gram) PO DAILY 60 tabs 3RF K21.9 - Gastro-esophageal reflux disease without esophagitis Laboratory Tests 06/08/24 04:36 WBC 6.0 Hgb 13.2 D Hct 39.2 D Plt Count 265 Estimated GFR > 60 Total Bilirubin 0.9 AST 27 ALT 15 Alkaline Phosphatase 82 TODAY'S VISIT Bangladeshi #[id number] sHE IS DUE FOR REPEAT COLONOSCOPY She says that her stomach pain is coming back intermittently in the midline gastric area localized w/o movement or radiation and she can not characterize the quality but it has associated nausea. She also has associated bloating. She has difficulty with the timing, but says at times it lasts for a few hours. She can not say if it is r/t eating or moving her bowels, I have not paid attention. At times it is better if she lays down and rubs her belly or drinks some milk, at times this helps, at times not. I confirm that she received the creon and is taking it. She does not feel that it changed her GI sx much. WIth conversation, she says that she is on a shot to lose weight. She can not tell me what the name is, but if iti s a GLP-1 it will have an effect on her GI sx. She says she just started this, and her sx predated the medication. AFter much more conversation, she says that these sx are really only occasional, so I suggest that we just watch and wait as al of us can have intermittent episodes of indigestion. She is moving her bowels 1-2 times a day with soft to normal stools. She DOES have multiple mobile gallstones, but her pattern of pain is not yet often enough or c/w cholecystitis. The creon is likely beneficial for this. I will also send a tria of Gax X. She is agreeable to having her colonoscopy. She has GEORGIE and asthma that are controlled for now, and she denies any cardiac problems. No anes or sed problems. No ID problems. SHe has a hx of TA and her lst scope was in 2019. [facility] Medical History (Updated 07/15/24 @ 12:05 by WILLIAMS Grijalva) COVID-19 Personal history of nicotine dependence Morbid obesity GEORGIE (obstructive sleep apnea) (~2007) Tubular adenoma of colon (~2014) Chronic allergic rhinitis Bronchitis Asthma Surgical History History of endometrial ablation History of colonoscopy History of section Family History Father No problems noted. 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 Review of Systems Const Denies fatigue, Denies fever(s), Denies night sweats, Denies poor appetite and Denies weight loss ENT Reports Normal hearing present, Denies dental pain, Denies dysphagia, Denies hearing loss, Denies mouth pain, Denies odynophagia, Denies throat swelling, Denies tongue swelling and Reports other (Dentition adequate) Card Reports no additional complaints Resp Reports no additional complaints GI Details: Reports abdominal pain, Denies melena, Reports bloating, Denies hematochezia, Denies constipation, Denies GI cramping, Denies dysphagia, Denies excessive flatus, Denies early satiety, Reports heartburn, Denies diarrhea, Reports nausea, Denies odynophagia, Denies vomiting and Denies hematemesis Skin/Breast Denies pruritus, Denies lesions, Denies rash and Denies jaundice Neuro Reports Normal hearing present and Denies Abnormal speech present Endo Denies fatigue Aller/Immun Denies throat swelling and Denies tongue swelling Physical Exam Vital Signs: Last Vital Signs Pulse 88 07/15/24 11:27 BP 139/76 07/15/24 11:27 Pulse Ox 97 07/15/24 11:27 Oxygen Delivery Method Room Air 07/15/24 11:27 BMI result Body Mass Index 39.2 Const General: cooperative, no acute distress, well developed and well groomed Nutritional Appearance: well nourished and obese morbidly obese Orientation/consciousness: oriented to person, oriented to place and oriented to time Limitations: language barrier and other limitations (Educational status) HEENT Head: Yes normocephalic and Yes atraumatic Eyes General: appearance normal, both eyes and all related structures Pupils: Equal, round and reactive pupils present Neck Neck: Yes normal visual inspection and Yes no lymphadenopathy Thyroid: Thyroid normal Resp Effort & Inspection: normal respiratory effort and able to speak in complete sentences Auscultation: clear to auscultation bilaterally Cardio Rate: regular rate Rhythm: regular rhythm Heart sounds: Normal, physiologic split S2 sound present Peripheral pulses: radial pulses present and posterior tibial pulses present GI Inspection: No distended, Yes Abdominal panniculus present and Yes obesity Palpation (GI): Soft to palpation, nontender, no guarding, not rigid and No hepatosplenomegaly present Percussion: Yes normal to percussion Auscultation: normal bowel sounds Rectal Exam - Female: deferred Skin General skin exam: no rashes or lesions noted, turgor normal, skin not dry, no jaundice, No spider nevi and no striae Rashes: no rashes Nails: normal Neuro General: oriented to person, oriented to place and oriented to time Cranial nerves: Yes Equal, round and reactive pupils present and Yes Normal hearing present Speech: No Abnormal speech present Extrem General: Yes normal to inspection, No clubbing, No cyanosis and No edema Psych Appearance: grossly normal and well kempt Mental Status: mental status grossly normal Speech and movement: Normal speech and movement present Affect: normal affect Attitude: cooperative Thought process: Circumstantial thought process present and not confabulating Thought content: Normal thought content present Insight: Limited insight present (Psych) Judgement: Limited judgement present (Psych) Assessment & Plan Assessment & Plan (1) GERD (gastroesophageal reflux disease): Code(s): K21.9 - Gastro-esophageal reflux disease without esophagitis Category: Medical Qualifiers: Esophagitis presence: without esophagitis Qualified Code(s): K21.9 - Gastro-esophageal reflux disease without esophagitis (2) Irritable bowel syndrome with constipation: Code(s): K58.1 - Irritable bowel syndrome with constipation Category: Medical (3) Tubular adenoma of colon: Onset Date: ~2014 Comment: (TA on 09/2014 scope - normal 09/2019 scope - repeat 2024) Code(s): D12.6 - Benign neoplasm of colon, unspecified Category: Medical (4) Pre-op examination: Code(s): Z01.818 - Encounter for other preprocedural examination Category: Medical (5) Cholelithiasis: Code(s): K80.20 - Calculus of gallbladder without cholecystitis without obstruction Category: Medical (6) Morbid obesity: Code(s): E66.01 - Morbid (severe) obesity due to excess calories Category: Medical (7) GEORGIE (obstructive sleep apnea): Onset Date: ~2007 Code(s): G47.33 - Obstructive sleep apnea (adult) (pediatric) Category: Medical Plan Bangladeshi #[id number] sHE IS DUE FOR REPEAT COLONOSCOPY She says that her stomach pain is coming back intermittently in the midline gastric area localized w/o movement or radiation and she can not characterize the quality but it has associated nausea. She also has associated bloating. She has difficulty with the timing, but says at times it lasts for a few hours. She can not say if it is r/t eating or moving her bowels, I have not paid attention. At times it is better if she lays down and rubs her belly or drinks some milk, at times this helps, at times not. I confirm that she received the creon and is taking it. She does not feel that it changed her GI sx much. WIth conversation, she says that she is on a shot to lose weight. She can not tell me what the name is, but if iti s a GLP-1 it will have an effect on her GI sx. She says she just started this, and her sx predated the medication. AFter much more conversation, she says that these sx are really only occasional, so I suggest that we just watch and wait as al of us can have intermittent episodes of indigestion. She is moving her bowels 1-2 times a day with soft to normal stools. She DOES have multiple mobile gallstones, but her pattern of pain is not yet often enough or c/w cholecystitis. The creon is likely beneficial for this. I will also send a tria of Gax X. She is agreeable to having her colonoscopy. She has GEORGIE and asthma that are controlled for now, and she denies any cardiac problems. No anes or sed problems. No ID problems. SHe has a hx of TA and her lst scope was in 2019. Orders: Orders Colonoscopy - GI Use Only Today D12.6 - Benign neoplasm of colon, unspecified, Z01.818 - Encounter for other preprocedural examination Medications: New peg 3350-electrolytes 236-22.74-6.74 -5.86 gram (Golytely) until fecal effluent is clear; do not exceed a total volume of 2,000 mL 240 mL PO Q10M 4,000 mL 0RF 1 day Z12.11 - Encounter for screening for malignant neoplasm of colon bisacodyl (Dulcolax (bisacodyl)) 10 mg (2 x 5 mg) PO BEDTIME 4 tabs 0RF 2 days simethicone (Gas Relief (simethicone)) 125 mg PO BID-QID PRN 90 tabs 6RF abdominal distention Refilled pantoprazole 40 mg PO BID 60 tabs 6RF zhccnu-jwcowpvb-nldigie 36,000-114,000- 180,000 unit (Creon) 2 caps PO BID 120 caps 6RF Discontinued omeprazole Discontinued Reason: Patient no longer taking 20 mg PO DAILY@0630 90 caps 0RF Coding Level of Care Code Est Pt Level 4 (73376) Diagnoses Gastroesophageal reflux disease without esophagitis K21.9 Esophagitis presence: without esophagitis Irritable bowel syndrome with constipation K58.1 Tubular adenoma of colon D12.6 Pre-op examination Z01.818 Cholelithiasis K80.20 Morbid obesity E66.01 GEORGIE (obstructive sleep apnea) G47.33 Time Spent (min) 33
--- OUTSIDE RECORDS SUMMARY | 2024-07-15 12:44 | XMS_ITS | Clinical Summary ---
Author Organization [address] Address [address] [place] [id number] Care Team Providers Care Moisture Tester Name Role Phone Halima Hickman MD Primary [...] - 144 mmol/L 10/13/2017 4:37 PM EDT [facility] Potassium 3.4 3.4 - 4.8 mmol/L 10/13/2017 4:37 PM EDT [facility] Chloride 107 98 - 107 mmol/L 10/13/2017 4:37 PM EDT [facility] CO2 24 20 - 30 mmol/L 10/13[facility]2017 [facility] Anion Gap 11 7 - 17 10/13/2017 [facility] Glucose 142(H) 70 - 100 mg/dL 10/13/2017 4:37 PM EDT [facility] BUN 10 8 - 18 mg/dL 10/13/2017 4:37 PM EDT [facility] Creatinine 0.90 0.40 - 1.30 mg/dL 10/13/2017 4:37 [facility] Calcium 8.8 8.8 - 10.2 mg/dL 10/13/2017 4:37 [facility] BUN/Creatinine Ratio 11.1 8.0 - 23.0 10/13/2017 4:37 PM EDT [facility] eGFR (Afr Amer) >60 >60 mL/min/1.7 3m2 10/13/2017 4:37 PM EDT [facility] Comment: Values under 60mL/min/1.73m2 may indicate CKD if noted for ?? more than 3 months. eGFR is only valid if creatinine is at steady state. eGFR (NON -Jessie n) >60 >60 mL/min/1.7 3m2 10/13/2017 4:37 PM EDT [facility] Comment: Values under 60mL/min/1.73m2 may indicate CKD if noted for ?? more than 3 months. eGFR is only valid if creatinine is at steady state. Blood specimen (specimen) Venipuncture / Unknown 10/13/2017 4:07 PM EDT 10/13/2017 4:09 PM EDT Luis Mederos MD LAB BLOOD ORDERABLES Final Resu lt [facility] [address] [place] [address], [facility] [phone] from Last 3 Months or Most Recently Relevant to Health Maintenance Insurance [id number] MEDICAID [id number] MEDICAID [id number] MEDICAID Care Teams Moisture Tester Relationship Specialty Start Date End Date Halima Hickman MD PCP - General 10/13/17
== END 2024-07-15 12:13 | disposition home or self-care (01) ==
PROVIDERS: PCP Registered Nurse; Visit Provider Nurse Practitioner
DX: Z01.818 Encounter for other preprocedural examination (principal); Z12.11 Encounter for screening for malignant neoplasm of colon; Z86.0101 Personal history of adenomatous and serrated colon polyps; K58.1 Irritable bowel syndrome with constipation; K21.9 Gastro-esophageal reflux disease without esophagitis; K80.20 Calculus of gallbladder without cholecystitis without obstruction; E66.01 Morbid (severe) obesity due to excess calories; G47.33 Obstructive sleep apnea (adult) (pediatric)
CPT/HCPCS: S0285

== ENCOUNTER 2024-10-22 13:09 | Outpatient (REF) | payer SELFPAY ==
--- OUTSIDE RECORDS SUMMARY | 2024-10-22 13:46 | XMS_ITS | Encounter Summary ---
Author Organization [employer] Address [address] [place] [address] 7 [place] [address] Care Team Providers Care Hardware Technician Name Role Phone Lilian Mcclellan MACHINE DEBURRER Primary Care Provider [phone] Mono Huggins MACHINE DEBURRER Unavailable Unavailable Reason for Referral * Consultation (Routine) - Pending Review Specialty Diagnoses / Procedures Referred By Fabiana rosa Referred To Contact Pharmacy Diagnoses Diastolic dysfunction without heart failure Sun King MD [address] [place] [address] Phone: tel: fax: Referral ID Status Reason Start Date Expiration Date Visits Requested Visits Authorized [id number] Pending Review Continuity of Care 03/17/2024 03/17/2025 6 6 Encounter Details Date Type Department Care Team (Late st Contact Info) Description 03/17/2024 Orders Only [facility] [address] [place], [place] [phone] Sun King MD [address], [place] [phone] Diastolic dysfunction without heart failure (Primary Dx) [...] as of this encounter Plan of Treatment Upcoming Encounters Date Type Department Care Team (Late st Contact Info) Description 10/28/2024 10:45 AM EDT Office Visit [facility] [address] [place] [address] Eryn Bowman NP [address] [place] [address] Scheduled Referrals Name Type Priority Associated Diagnoses [...] documented as of this encounter Care Teams Hardware Technician Relationship Specialty Start Date End Date VyLilian givens FNP [address] [place] [address] PCP - General Family Medicine 04/26/22 Mono Huggins FNP [address] [place] [address] Nurse Practitioner Family Medicine 01/21/23 Maureen Gastelum [employer] Technician 02/11/24 documented as of this encounter
--- OUTSIDE RECORDS SUMMARY | 2024-10-22 13:46 | XMS_ITS | Clinical Summary ---
Author Organization [address] Address [address] [place] [phone] Care Team Providers Care Director Microbiology Name Role Phone Halima Hickman MD Primary [...] 92 10/13/2017 9:24 PM EDT Temperature 36.8 C (98.2 F) 10/13/2017 9:24 PM EDT Respiratory Rate 16 10/13/2017 9:24 PM EDT [...] Diabetes screening 10/13/2020 10/13/2017 Covid-19 vaccine series (2023- season) 2023 Influenza vaccine 10/26/2024 RSV Immunization (1 - 1-dose 75+ series) 2037 Meningococcal B Vaccine Aged Out No l onger eligible based on patient's age to complete [...] - 144 mmol/L 10/13/2017 4:37 PM EDT [facility] Potassium 3.4 3.4 - 4.8 mmol/L 10/13/2017 4:37 PM EDT [facility] Chloride 107 98 - 107 mmol/L 10/13/2017 4:37 PM EDT [facility] CO2 24 20 - 30 mmol/L 10/13/2017 4:37 PM EDT [facility] Anion Gap 11 7 - 17 10/13[facility]2017 [facility] Glucose 142(H) 70 - 100 mg/dL 10/13/2017 4:37 PM EDT [facility] BUN 10 8 - 18 mg/dL 10/13/2017 4:37 PM EDT [facility] Creatinine 0.90 0.40 - 1.30 mg/dL 10/13/2017 4:37 PM EDT [facility] Calcium 8.8 8.8 - 10.2 mg/dL 10/13/2017 4:37 PM EDT [facility] BUN/Creatinine Ratio 11.1 8.0 - 23.0 10/13/2017 4:37 PM EDT [facility] eGFR (Afr Amer) >60 >60 mL/min/1.7 3m2 10/13/2017 4:37 PM EDT [facility] Comment: Values under 60mL/min/1.73m2 may indicate CKD if noted for more than 3 months. eGFR is only valid if creatinine is at steady state. eGFR (NON -Jessie n) >60 >60 mL/min/1.7 3m2 10/13/2017 4:37 PM EDT [facility] Comment: Values under 60mL/min/1.73m2 may indicate CKD if noted for more than 3 months. eGFR is only valid if creatinine is at steady state. Blood specimen (specimen) Venipuncture / Unknown 10/13/2017 4:07 PM EDT 10/13/2017 4:09 PM EDT Luis Mederos MD LAB BLOOD ORDERABLES Final Resu lt [facility] [address] [place] [address], [facility] [phone] from Last 3 Months or Most Recently Relevant to Health Maintenance Insurance [id number] MEDICAID [id number] MEDICAID [id number] MEDICAID Care Teams Director Microbiology Relationship Specialty Start Date End Date Halima Hickman MD PCP - General 10/13/17
--- OUTSIDE RECORDS SUMMARY | 2024-10-22 13:46 | XMS_ITS | Encounter Summary ---
Author Organization [employer] Address [address] [facility] [address] [place] [address] Care Team Providers Care Foot Worker Name Role Phone [place] [facility] Primary Care Provider [phone] Mono Huggins Unavailable Unavailable Reason for Visit * Reason Onset Date Comments Lab Orders 10/22/2024 Encounter Details Date Type Department Care Team ([facility] st Contact Info) Description 10/22/2024 Telephone [facility] [address] [place] [address] [place], [facility] [address] [place] [address] Lab Orders Social History Tobacco Use Types Packs/Day Years Used Date Smoking Tobacco: Former Cigarettes Passive Smoke Exposure: Past Smokeless Tobacco: Never Alcohol Use Standard Drinks/Week Comments Never 0 (1 standard drink = 0.6 oz pur e alcohol) Depression Answer Date Recorded Patient Health Questionnaire-9 Score 0 08/24/2024 Patient Health Questionnaire-9 Score 0 08/24/2024 Last PHQ-9: Questionnaire Data Not on file 0 08/24/2024 Housing Stability Answer Date Recorded What is [...] shut off services in your home? No 08/17/2024 Depression Answer Date Recorded Patient Health Questionnaire-2 Score 0 08/24/2024 Internet Access Answer Date Recorded Internet Access Q1 Yes 08/17/2024 Internet Access Q2 Not on file 08/17/2024 Comments Unknown Sex and Gender Information Value Date Recorded Sex Assigned at Female 12/25/2021 10:15 AM EDT Legal Sex Female 10:15 AM EDT Gender Identity Female 12/25/2021 10:15 AM EDT Sexual Orientation Don't know 12/25/2021 10 :15 AM EDT documented as of this encounter Miscellaneous Notes * Telephone Encounter - Michell Romero RN - 10/22/2024 9:30 AM EDT TC returned to pt. Pt. Reports prior history of tb testing which has always been negative. Pt. Needs for work as soon as possible. Order placed, pt. Will come to lab today. Aware results take 3-5 days * Telephone Encounter - Keily Kauffman - 10/22/2024 8:56 AM EDT Tc from pt requesting an lab order for tb test Contact pt at [phone] Need shellfish shucker documented in this encounter Plan of Treatment Upcoming Encounters Date Type Department Care Team (Late st Contact Info) Description 10/28/2024 10:45 AM EDT Office Visit [facility] [address] [place] [address] Eryn Bowman NP [address] [place] [address] Scheduled Orders Name Type Priority Associated Diagnoses Orde r Schedule T-SPOT .TB Lab Routine Screening examination for pulmonary tuberculosis Expected: 10/22/2024 (Approximate), Expires: 10/22/2025 documented as of this encounter Visit Diagnoses Diagnosis Screening examination for pulmonary tuberculosis documented in this encounter Additional Health Concerns Assessment Noted Time PHQ-9 Depression Total Score: 0 08/25/19 25 9:53 AM EDT documented as of this encounter Care Teams Foot Worker Relationship Specialty Start Date End Date Lilian Mcclellan FNP [address] [place] [id number] PCP - General Family Medicine 04/26/22 Mono Huggins FNP [address] [place] [id number] Nurse Practitioner Family Medicine 01/21/23 Muareen Gastelum Resident Care AssistantRotary Drum Dyer 02/11/24 documented as of this encounter
--- OUTSIDE RECORDS SUMMARY | 2024-10-22 13:46 | XMS_ITS | Encounter Summary ---
Author Organization [facility] Address [address] [place] [address] Phone Care Team Providers Care Car Dumper Name Role Phone Unavailable Primary Care Provider Unavailabl e Encounter Details Date Type Department Care Team (Late st Contact Info) Description 02/13/2019 Ancillary Orders [facility] [address] [place] [address] Shannan Yee PA [address] [place] [address] [email or web address] Palpitations Social History Tobacco Use Types Packs/Day Years Used Date Smoking Tobacco: Never Assessed Comments Unknown Sex and Gender Information Value Date Recorded Sex Assigned at Not on file Legal Sex Female 12:27 PM EST Gender Identity Not on file Sexual Orientation Not on file documented as of this encounter Plan of Treatment Not on file documented as of this encounter Results * Holter Monitor 48 Hours (02/13/2019 1:12 PM EST) Anatomical Region Laterality Modality Heart Other Narrative 02/13/2019 4:41 PM EST 48-hour monitor: Baseline rhythm is sinus. The minimum heart rate is 61, maximum 177, average 96 bpm. Rare PVCs present. There is an increased frequency of atrial ectopy, averaging about 17,400 atrial ectopic beats per 24 hours. These are primarily isolated PACs with occasional couplets and brief runs of atrial tachycardia, longest duration 10 beats. There is no diary submitted. Impression: Abnormal 48-hour monitor due to increased frequency atrial ectopy, details above. No diary submitted. Procedure Note Zeke Castañeda MD - 02/13/2019 48-hour monitor: Baseline rhythm is sinus. The minimum heart rate is 61,maximum 177, average 96 bpm. Rare PVCs present. There is an increasedfrequency of atrial ectopy, averaging about 17,400 atrial ectopic beatsper 24 hours. These are primarily isolated PACs with occasional coupletsand brief runs of atrial tachycardia, longest duration 10 beats. There isno diary submitted. Impression: Abnormal 48-hour monitor due to increased frequency atrialectopy, details above. No diary submitted. Shannan [facility] Final Result documented in this encounter Visit Diagnoses Diagnosis Palpitations Palpitations documented in this encounter Additional Source Comments The information contained in this document represents components of the legal health record. It is not the complete legal health record.[facility]
--- OUTSIDE RECORDS SUMMARY | 2024-10-22 13:46 | XMS_ITS | Encounter Summary ---
Author Organization [employer] Address [address] [place] [address] Care Team Providers Care Care Associate Name Role Phone Lilian Mcclellan REVENUE CYCLE CONSULTANT Primary Care Provider [phone] Mono Huggins REVENUE CYCLE CONSULTANT Unavailable Unavailable Encounter Details Date Type Department Care Team (Late st Contact Info) Description 01/11/2023 Abstract [facility] MEDICINE [address] [place] [address] Patricia Arreaga Social History Tobacco Use Types [...] Description 10/28/2024 10:45 AM EDT Office Visit [facility] MEDICINE [address] [place] [address] Eryn Bowman, MICHELLE [address] [place] [address] documented as of this encounter Procedures Procedure Name Priority Date/Time Associated Diagnosis Comments COLONOSCOPY Routine 09/29/2019 documented in this encounter Results * Colonoscopy (09/29/2019) Colonoscopy Normal Normal Narrative WhitleyPatricia - 09/29/2019 Repeat in 5 year due to history of tubular adenomas us Historical Provider HEALTH MAINTENANCE Final Result documented in this encounter Visit Diagnoses Not on filedocumented in this encounter Additional Health Concerns Assessment Noted Time PHQ-9 Depression Total Score: 0 11/09/19 23 10:07 AM EDT documented as of this encounter Care Teams Care Associate Relationship Specialty Start Date End Date Lilian Mcclellan FNP [address] [place] [id number] PCP - General Family Medicine 04/26/22 Mono Huggins FNP [address] [place] [address] Nurse Practitioner Family Medicine 01/21/23 Maureen Gastelum Cyber InstructorPaddle Dyeing Machine Operator 02/11/24 documented as of this encounter
--- OUTSIDE RECORDS SUMMARY | 2024-10-22 13:46 | XMS_ITS | Encounter Summary ---
Author Organization [employer] Address [address] [place] [address] Care Team Providers Care Boiler Service Technician Name Role Phone [facility] Primary Care Provider [phone] Mono Huggins COMPUTER FORENSICS EXAMINER Unavailable Unavailable Reason for Visit * Reason Onset Date Comments Referral 08/30/2023 Encounter Details Date Type Department Care Team ([facility] st Contact Info) Description 08/30/2023 Telephone [facility] MEDICINE [address] [place] [address] [facility], [facility] [address] [place] [address] Referral Social History Tobacco Use Types Packs/Day [...] receive injections in shoulders and knees at [facility] ortho. At this time reports knees are all set and are not bothering her. [facility], pt. Last seen by ortho [...] 09/02/2023 10:59 AM EDT TC returned to [facility] [phone] however no answer, RN left requesting CB to red team nurses. [facility] to f/u PRN. * Telephone Encounter - Dain Lucia - 08/30/2023 3:43 PM EDT Tc from Maureen with [facility] calling requesting status on physical therapy and orthopedics referral. Please contact Maureen at [phone]. documented in this encounter Plan of Treatment Upcoming Encounters Date Type Department Care Team (Late st Contact Info) Description 10/28/2024 10:45 AM EDT Office Visit [facility] MEDICINE [address] [place] [address] Eryn Bowman, MICHELLE [address] [place] [address] documented as of this encounter Visit Diagnoses Not on filedocumented in this encounter Additional Health Concerns Assessment Noted Time PHQ-9 Depression Total Score: 0 05/28/19 24 9:46 AM EDT documented as of this encounter Care Teams Boiler Service Technician Relationship Specialty Start Date End Date Lilian Mcclellan FNP [address] [place] [address] PCP - General Family Medicine 04/26/22 Mono Huggins FNP [address] [place] [id number] Nurse Practitioner Family Medicine 01/21/23 Maureen Gastelum Personal Finance InstructorLight Oil Operator 02/11/24 documented as of this encounter
--- OUTSIDE RECORDS SUMMARY | 2024-10-22 13:46 | XMS_ITS | Clinical Summary ---
Author Organization [facility] Address [address] [place] [address] [place] [phone] Phone Care Team Providers Care Legal Executive Assistant Name Role Phone Unavailable Primary Care Provider Unavailabl e Social History Tobacco Use Types Packs/Day Years Used Date Smoking Tobacco: Never Assessed Education Answer Date Recorded Are you interested in more education? Not on yoni e 06/22/2022 Are you concerned about learning? Not on file 06/22/2022 No 06/22/2022 No 06/22/2022 Digital Access Answer Date Recorded No 07/24/2022 No 07/24/2022 Reliable internet access at home? Not on file 07/24/2022 Device with a working camera? Not on file Comments Unknown Sex and Gender Information Value Date Recorded Sex Assigned at Not on file Legal Sex Female 12:27 PM EST Gender Identity Not on file Sexual Orientation Not on file Plan of Treatment Not on file Medical Devices Not on file Insurance [facility] [address] [place] [address] [place] [address] [employer] [facility] C3 ACO Additional Source Comments The information contained in this document represents components of the legal health record. It is not the complete legal health record.[facility]
--- OUTSIDE RECORDS SUMMARY | 2024-10-22 13:46 | XMS_ITS | Encounter Summary ---
Author Organization [employer] Address [address] [place] [address] [address] [place] [address] Care Team Providers Care Proof Technician Helper Name Role Phone [facility] Primary Care Provider [phone] Mono Huggins Unavailable Unavailable Reason for Visit * Reason Onset Date Comments Results 08/22/2022 TB Test Encounter Details Date Type Department Care Team ([facility] Contact Info) Description 08/22/2022 Telephone [facility] MEDICINE [address] [place] [address] [place], [facility] [address] [place] [address] Results (TB Test) Social History Tobacco Use [...] - 08/23/2022 11:48 AM EDT T/C to [phone] through [facility] id - [id number] for TB test, pt. Informed that clinic does not receive result yet, clinic will call once result is available. Pt. Verbally agreed and understood. * Telephone Encounter - Anabella Reyes - 08/22/2022 1:47 PM EDT Tc from patient requesting tb test results. Patient speaks malagasy documented in this encounter Plan of Treatment Upcoming Encounters Date Type Department Care Team (Late st Contact Info) Description 10/28/2024 10:45 AM EDT Office Visit [facility] MEDICINE [address] [place] [address] Eryn Bowman NP [address] [place] [address] documented as of this encounter Visit Diagnoses Not on filedocumented in this encounter Additional Health Concerns Assessment Noted Time PHQ-9 Depression Total Score: 3 08/10/19 23 10:21 AM EDT documented as of this encounter Care Teams Proof Technician Helper Relationship Specialty Start Date End Date Lilian Mcclellan FNP [address] [place] [address] PCP - General Family Medicine 04/26/22 Mono Huggins FNP [address] [place] [address] Nurse Practitioner Family Medicine 01/21/23 Maureen Gastelum Charting ClerkCommercial Real Estate Broker 02/11/24 documented as of this encounter
--- OUTSIDE RECORDS SUMMARY | 2024-10-22 13:46 | XMS_ITS | Clinical Summary ---
Author Organization [employer] Address [address] [place] [address] [address] [place] [address] Care Team Providers Care Senior Accounting Clerk Name Role Phone Lilian Mcclellan FILLING MACHINE SET UP MECHANIC Primary Care Provider [phone] Mono Huggins FILLING MACHINE SET UP MECHANIC Unavailable Unavailable Allergies Active Allergy Reactions Criticality [...] OF BREATH OR WHEEZING FOR 30 DAYS 04/03/19 23 Active levocetirizine (Xyzal) 5 MG tablet Take 5 mg by mouth in the morning. 03/01/19 23 Active furosemide (Lasix) 20 MG tablet Take 20 mg by mouth in the morning. 03/01/19 23 Active sucralfate (Carafate) 1 g tablet TAKE 1 TABLET BY MOUTH TWICE DAILY IN THE MORNING AND IN THE EVENING 03/01/19 23 Active pantoprazole (ProtoNix) 40 MG EC tablet TAKE 1 TABLET BY MOUTH TWICE DAILY IN THE MORNING AND AT BEDTIME 03/01/19 23 Active minoxidil (Rogaine) 2 % external solutionIndication s:Hair loss Apply topically 2 times daily. 60 mL 2 07/28/19 23 Active hydrocortisone 2.5 % creamIndications:B ug bite, initial encounter Apply topically 2 times daily. 20 g 10/19/19 23 Active azelastine (Astelin) 0.1 % nasal spray Administer 1 spray into each nostril 2 times daily. Use in each nostril as directed 30 mL 3 11/06/19 23 Active terbinafine (LamISIL) 1 % creamIndications:T inea pedis of both feet APPLY TO THE AFFECTED AREA(S) TOPICALLY TWICE DAILY 30 g 1 12/11/19 23 Active baclofen (Lioresal) 10 MG tablet Take one tablet TID PRN 30 tablet 05/22/19 24 Active Incruse Ellipta 62.5 MCG/ACT aerosol powderIndications: Severe persistent asthma without complication INHALE 1 PUFF EVERY DAY AT THE SAME TIME 30 each 11 06/05/19 24 Active triamcinolone (Nasacort) 55 MCG/ACT nasal inhalerIndications :Severe persistent asthma with acute exacerbation Administer 2 sprays into each nostril Once per day. 16.5 g 11 11/05/19 24 025 Active lidocaine (Lidoderm) 5 % patchIndications:C hronic right shoulder pain APPLY 1 PATCH TOPICALLY TO SKIN, LEAVE ON FOR 12 HOURS AND OFF FOR 12 HOURS DIRECTED 30 patch 1 01/10/20 24 Active clotrimazole (Lotrimin) 1 % creamIndications:G roin rash APPLY TOPICALLY TWICE DAILY FOR 28 DAYS 30 g 2 03/11/19 25 Active naphazoline-phenir amine (Naphcon-A) 0.025-0.3 % ophthalmic solutionIndication s:Viral conjunctivitis Administer 2 drops into both eyes if needed in the morning, at noon, in the evening, and at bedtime for irritation. 15 mL 03/31/19 25 Active losartan (Cozaar) 25 MG tablet TAKE 1 TABLET BY MOUTH DAILY LAB 1 WEEK AFTER STARTING 03/07/19 25 Active albuterol (2.5 MG/3ML) 0.083% nebulizer solutionIndication s:Restrictive lung disease INHALE 1 AMPULE USING A NEBULIZER EVERY 4 HOURS NEEDED FOR WHEEZING 90 mL 1 06/04/19 25 Active triamcinolone (Kenalog) 0.1 % ointmentIndication s:Groin rash APPLY TOPICALLY TO THE AFFECTED AREA(S) TWICE DAILY DIRECTED FOR FOURTEEN DAYS 15 g 1 06/11/19 25 Active hydrOXYzine HCl (Atarax) 25 MG tabletIndications: Anxiety Take one tab during the day, may take two tabs at bedtime for anxiety as needed. 90 tablet 05/12/20 25 Active clonazePAM (KlonoPIN) 0.5 MG tabletIndications: Anxiety Take 1 tablet (0.5 mg) by mouth if needed each day for anxiety. Take 1 tab orally at bedtime, and may occasionally take 1 extra tab during the day as needed for anxiety 40 tablet 07/07/19 25 Active Tirzepatide-Weight Management (Zepbound) 10 MG/0.5ML solution auto-injectorIndic ations:Obesity, unspecified class, unspecified obesity type, unspecified whether serious comorbidity present Inject 0.5 mL (10 mg) under the skin every 7 (seven) days. 2 mL 08/04/19 25 Active metoprolol tartrate (Lopressor) 50 MG tabletIndications: Palpitations Take 1 tablet (50 mg) by mouth 2 times daily. 60 tablet 3 08/25/19 25 Active ezetimibe (Zetia) 10 MG tablet TAKE 1 TABLET BY MOUTH AT BEDTIME 90 tablet 1 09/16/19 25 Active Active Problems Problem Noted Date Diagnosed Date [...] Assessment & Plan (11/18/2022 4:37 PM EDT): INCREASE cymbalta to 40mg b.i.d Encouraged daily exercise, regular sleep and increased hydration Assessment & Plan (07/08/2022 8:17 PM EDT): Continue current medication regimen Encouraged pt to increase daily exercise routine Lower extremity edema 06/12/2022 Overview (06/12/2022): Lasix 20mg daily Family history of cancer 06/12/2022 Overview (06/12/2022): Referred for genetic screening 05/2022 Mixed hyperlipidemia 06/12/2022 Overview (06/12/2022): ASCVD-2.9% 05/2022 No cholesterol lowering medication indication Lifestyle measures only Healthcare maintenance 05/09/2022 Overview (06/17/2023): Mammo: 01/2021; negative Has upcoming appt. Pap: Followed by [facility], Dr. Edie Robbins-scope: 2019, repeat 5 years BMD: Routine age 67 LDCT done 08/24/22 was Lung RADS 2 - plan is for yearly LDCT HCV Screen: Neg 05/2022 HIV Screen: Neg 05/2022 Screening Labs: A1c 5.6 05/2022 Severe persistent asthma 05/09/2022 Overview (06/12/2022): Followed by [facility] pulmonology Severe allergic asthma Incruse Ellipta Levalbuterol Assessment & Plan (11/18/2022 4:33 PM EDT): Well controlled Follow as scheduled with pulmonology Will refill dymista which patient found better [...] any questions or concerns, she should call [facility] BH Department and/or PCP. I have [...] be retiring in approx 1 year, but [facility] should have new provider in place [...] with the plan. Palpitations 10/15/2017 Overview (06/12/2022): Followed by [facility] cardiology Metoprolol XR 25mg daily Assessment & Plan (11/18/2022 4:26 PM EDT): - No current sx during office visit - 2020 echo with normal EF. Mild elevation in LV filling pressure. -2017 teletypesetter monitor with PACs and atrial tachycardia - Will submit referral to [facility] cardiology per patient request - Continue daily metoprolol Obesity 04/09/2017 Knee pain 12/04/2016 Keratosis 05/11/2016 Seborrheic keratosis 05/11/2016 Gastroesophageal reflux disease 06/06/2015 Overview (05/09/2022): Followed by [facility] GI Shoulder pain 06/06/2015 Chronic pain 06/06/2015 [...] organization. Date Type Department Care Team Description 10/22/2024 Telephone [facility] MEDICINE [address] [place] [address] Lilian Mcclellan FNP Lab Orders 09/15/[address] [address] Lilian Mcclellan FNP 08/24/2024 9:45 AM EDT Office Visit [facility] [address] [place] [address] Lilian Mcclellan FNP Palpitations (Primary Dx); Acute right hip pain; Right elbow tendonitis 08/24/2024 Travel 08/21/2024 Telephone [facility] [address] [place] [address] Lilian Mcclellan FNP Chart Prep 08/17/2024 Patient Outreach [facility] [address] [place] [address] Lilian Mcclellan FNP Pre-visit Planning (SDOH negative, Tobacco screening negative. ) 07/31/2024 Refill [facility] [address] [place] [address] Ifrah Paul MD Obesity, unspecified class, unspecified obesity type, unspecified whether serious comorbidity present from Last 3 Months Immunizations Immunization Administration Dates Next Due Influenza injectable quadriv [...] Sign Reading Time Taken Comments Blood Pressure 130/88 08/24/2024 9:46 AM EDT Pulse 78 08/24/2024 9:46 AM EDT Temperature 36.2 C (97.1 F) 08/24/2024 9:46 AM EDT Respiratory Rate 20 08/24/2024 9:46 AM EDT Oxygen Saturation 97% 08/24/2024 9:46 AM EDT Inhaled Oxygen Concentration - - Weight 90.8 kg (200 lb 3.2 oz) 08/24/2024 9:46 A M EDT Height 149.9 cm (4' 11 ) 08/24/2024 9:46 AM EDT Body Mass Index 40.44 08/24/2024 9:46 AM EDT Plan of Treatment Upcoming Encounters Date Type Department Care Team (Late st Contact Info) Description 10/28/2024 10:45 AM EDT Office Visit [facility] MEDICINE [address] [place] [address] Eryn Bowman NP [address] [place] [address] Health Maintenance Due Date Last Done Comments [...] 02/20/2023 02/20/2021, 02/26, 03/19/2020 COVID-19 Vaccine ( - season) 2023 05/11/2020 Colonoscopy 09/28/2024 09/29/2019 Colorectal Cancer Screening 09/28/2024 Influenza Vaccine (#1) 2024 9, 12/25/2016, 01/13/2016, Additional history exists SDOH Screening 08/17/2025 08/17/2024 Depression Screening 08/24/2025 08/24/2024, 08/25/19 25 Disability Screening 08/24/2025 08/24/2024 Tobacco Screening 08/30/2025 08/30/2024 Cervical Cancer Screening 12/28/2025 HPV/Cotest 12/28/2025 12/28/2020, [...] patient's age to complete this topic Meningococcal B Vaccine Aged Out No l [...] Procedure Name Priority Date/Time Associated Diagnosis Comments HEPATITIS C AB W/REFL TO HCV RNA, [...] Recently Relevant to Health Maintenance Results * Hepatitis C Antibody with Reflex to HCV, RNA, Quantitative, Real-Time PCR (05/31/2022 8:50 AM EDT) Hepatitis C Antibody NON-REACT JAE NON-REACT JAE [facility] [place] Index 0.02 <1.00 [facility] [place] Results Scorecard Comment: HCV antibody was non-reactive. There is no laboratory evidence of HCV infection. In most cases, no further action is required. However, if recent HCV exposure is suspected, a test for HCV RNA (test code 13723) is suggested. For additional information please refer to http://FreshGrade.goBramble/faq/VLT64z8 (This link is being provided for informational/ educational purposes only.) Blood Venous blood specimen / Unknown 05/31/2022 8:50 AM EDT 05/31/2022 8:51 AM EDT Narrative [facility] - 06/01/2022 5:54 PM EDT FASTING:YES FASTING: YES [facility] LAB BLOOD ORDERABLES Final Re sult [facility] [address], [place] [address] [facility] [place] [address] [place] [address] * HIV-1/2 Antigen and Antibodies, Fourth Generation, with Reflexes (05/31/2022 8:50 AM EDT) HIV Antigen/Antibody, 4th Generation NON-REAC TIVE NON-REAC TIVE [facility] [place] Results Scorecard Comment: HIV-1 antigen and HIV-1/HIV-2 antibodies were not detected. There is no laboratory evidence of HIV infection. PLEASE NOTE: This information has been disclosed to you from records whose confidentiality may be protected by state law. If your state requires such protection, then the state law prohibits you from making any further disclosure of the information without the specific written consent of the person to whom it pertains, or as otherwise permitted by law. A general authorization for the release of medical or other information is NOT sufficient for this purpose. For additional information please refer to http://FreshGrade.goBramble/faq/IXV658 (This link is being provided for informational/ educational purposes only.) The performance of this assay has not been clinically validated in patients less than 2 years old. Blood Venous blood specimen / Unknown 05/31/2022 8:50 AM EDT 05/31/2022 8:51 AM EDT Narrative [facility] - 06/01/2022 5:54 PM EDT FASTING:YES FASTING: YES [facility] LAB BLOOD ORDERABLES Final Re sult [facility] [address], [place] [address] [facility] [place] Results Scorecard [address] [place] [address] * (ABNORMAL) Lipid Panel, Standard (05/31/2022 8:50 AM EDT) Cholesterol, Total 218(H) <200 mg/dL [facility] HDL Cholesterol 62 > OR = 50 mg/dL [facility] [place] Results Score[facility] Triglycerides 206(H) <150 mg/dL [facility] Comment: If a non-fasting specimen was collected, consider repeat triglyceride testing on a fasting specimen if clinically indicated. Griselda et al. J. of Clin. Lipidol. 2015;9:129-169. LDL Cholesterol 124(H) mg/dL (calc) [facility] Comment: Reference range: <100 Desirable range <100 mg/dL for primary prevention; <70 mg/dL for patients with CHD or diabetic patients with > or = 2 CHD risk factors. LDL-C is now calculated using the Mario-Oneal calculation, which is a validated novel method providing better accuracy than the Friedewald equation in the estimation of LDL-C. Mario SS et al. ANOOP. 2013;310(19): 1446-0836 (http://education.Arcos Technologies/faq/OYM751) Chol/HDLC Ratio 3.5 <5.0 (calc) [facility] Non-HDL Cholesterol 156(H) <130 mg/dL (calc) [facility] Comment: For patients with diabetes plus 1 major ASCVD risk factor, treating to a non-HDL-C goal of <100 mg/dL (LDL-C of <70 mg/dL) is considered a therapeutic option. Blood Venous blood specimen / Unknown 05/31/2022 8:50 AM EDT 05/31/2022 8:51 AM EDT Narrative [facility] - 06/01/2022 5:54 PM EDT FASTING:YES FASTING: YES [facility] FILLING MACHINE SET UP MECHANIC LAB BLOOD ORDERABLES Final Re sult [facility] [address] [place] [address] [facility] [address] [place] [address] * Mammography Report 1 (02/20/2021 10:24 AM [...] mRNA E6/E7 rflx Not Detected Not Detected [facility] Comment: Methodology: Acquisition Consultant-Mediated Amplification This assay detects E6/E7 viral messenger RNA (mRNA) from 14 high-risk HPV types (16,18,31,33,35,39,45,51,52,56,58,59,66,68). The analytical performance characteristics of this assay have been determined by [facility]. The modifications have not been cleared or approved by the FDA. This assay has been validated pursuant to the CLIA regulations and is used for clinical purposes. For additional information, please refer to http://education.Eventifier.Kids Quizine/faq/LLP394e8 (This link if provided for information/ educational purposes only.) THIS TEST WAS PERFORMED AT: [facility] [address] [place] [address] [address]LO[address],[place] [address] FRANCISCO JAVIER DUVAL MD 12/28/2020 11:1 4 AM EDT us Macarena Rodriguez HISTORICAL/NON ORDERABLE LABS Fi nal Result [facility] [place] [address], * Colonoscopy (09/29/2019) Colonoscopy Normal Normal Narrative Patricia Arreaga - 09/29/2019 Repeat in 5 year due to history of tubular adenomas Historical Provider HEALTH MAINTENANCE Final Result from Last 3 Months or Most Recently Relevant to Health Maintenance Insurance [employer] Care Teams Senior Accounting Clerk Relationship Specialty Start Date End Date Lilian Mcclellan FNP [address] [place] [address] PCP - General Family Medicine 04/26/22 Mono Huggins FNP [address] [place] [address] Nurse Practitioner Family Medicine 01/21/23 Maureen Gastelum Warp SpinnerSilk Screen Operator 02/11/24
--- OUTSIDE RECORDS SUMMARY | 2024-10-22 13:46 | XMS_ITS | Encounter Summary ---
Author Organization [facility] Address [address] [place] [address] Phone Care Team Providers Care Labeling Specialist Name Role Phone Unavailable Primary Care Provider Unavailabl e Encounter Details Date Type Department Care Team (Late st Contact Info) Description 04/22/2019 Ancillary Orders [facility] [address] [place] [address] Shannan Yee PA [address] [place] [address] [email or web address] Social History Tobacco Use Types Packs/Day [...] encounter Results * Holter Monitor 48 Hours (04/22/2019 12:03 PM EST) Anatomical Region Laterality Modality Heart Other Narrative 04/22/2019 1:39 PM EST 48-hour monitor: Baseline rhythm is sinus with a minimum heart rate of 57, maximum 135, average 93 bpm. There is an increased frequency of atrial ectopy, averaging about 27,000 atrial ectopic beats per 24 hours, or about 23% of the total heartbeats. These are primarily isolated PACs with occasional couplets and brief runs of atrial tachycardia, longest duration 8 beats. There is no diary returned. There are patient event markers which occurred during the baseline rhythm of sinus with PACs. Impression: Abnormal 48-hour monitor due to increased frequency atrial ectopy, details above. No diary submitted. Patient event markers during baseline rhythm of sinus with PACs. Procedure Note Zeke Castañeda MD - 04/22/2019 48-hour monitor: Baseline rhythm is sinus with a minimum heart rate of 57,maximum 135, average 93 bpm. There is an increased frequency of atrialectopy, averaging about 27,000 atrial ectopic beats per 24 hours, or about23% of the total heartbeats. These are primarily isolated PACs withoccasional couplets and brief runs of atrial tachycardia, longest duration8 beats. There is no diary returned. There are patient event markerswhich occurred during the baseline rhythm of sinus with PACs. Impression: Abnormal 48-hour monitor due to increased frequency atrialectopy, details above. No diary submitted. Patient event markers duringbaseline rhythm of sinus with PACs. Sh[facility]an [facility] ORDERA BLES Final Result documented in this encounter Visit Diagnoses Diagnosis Palpitations Palpitations documented in this encounter Additional Source Comments The information contained in this document represents components of the legal health record. It is not the complete legal health record.[facility]
--- OUTSIDE RECORDS SUMMARY | 2024-10-22 13:46 | XMS_ITS | Encounter Summary ---
Author Organization [employer] Address [address] [place] [address] Care Team Providers Care Lacquer Dipping Machine Operator Name Role Phone [place] [facility] Primary Care Provider [phone] Mono Huggins Unavailable Unavailable Reason for Visit * Reason Comments Med Refill Encounter Details Date Type Department Care Team ([facility] st Contact Info) Description 05/12/2024 Refill [facility] MEDICINE [address] [place] [address] [place] [facility] [address] [place] [address] Class 3 severe obesity due to excess [...] Description 10/28/2024 10:45 AM EDT Office Visit [facility] MEDICINE [address] [place] [address] Eryn Bowman NP [address] [place] [address] documented as of this encounter Visit Diagnoses Diagnosis Class 3 severe obesity due to excess calories with serious comorbidity and body mass index (BMI) of 40.0 to 44.9 in adult documented in this encounter Additional Health Concerns Assessment Noted Time PHQ-9 Depression Total Score: 0 01/15/20 24 11:36 AM EST documented as of this encounter Care Teams Lacquer Dipping Machine Operator Relationship Specialty Start Date End Date Lilian Mcclellan FNP [address] [place] [id number] PCP - General Family Medicine 04/26/22 Mono Huggins FNP [address] [place] [address] Nurse Practitioner Family Medicine 01/21/23 Maureen Gastelum Shop TeacherRevising Clerk 02/11/24 documented as of this encounter
[2024-10-22 16:10] LABS: MANUAL DIFF FLAG NO
[2024-10-22 16:22] LABS: Hematocrit 40.2 % (37.0-47.0); Hemoglobin 13.6 g/dl (12.0-16.0); Imm Gran Abs Auto 0.02 X10*3/uL (0.00-0.03); Imm Gran Pct Auto 0.3 % (0.0-0.4); Lymphocytes Absolute Auto 2.3 X10*3/uL (1.2-4.9); Mean Corpuscular HGB Conc 33.8 g/dl (31.0-35.0); Mean Corpuscular Hemoglobin 29.6 pg (27.0-33.0); Mean Corpuscular Volume 87.4 fL (80.0-98.0); NRBC Abs Auto 0.000 X10*3/uL (0.0-0.012); NRBC Pct Auto 0.0 /100WBC (0.0-0.2); Platelet Count 313 X10*3/uL (160-400); Red Blood Count 4.60 X10*6/uL (4.20-5.50); White Blood Count 7.2 X10*3/uL (4.8-10.8)
[2024-10-22 16:33] LABS: Anion Gap 13 (12-20); Blood Urea Nitrogen 11 mg/dL (9-16); Calcium 9.6 mg/dL (8.4-10.2); Carbon Dioxide 27 mmol/L (22-29); Chloride 104 mmol/L (96-108); Estimated Glomerular Filt Rate > 60; Potassium 3.7 mmol/L (3.3-5.1); Sodium 140 mmol/L (135-145)
[2024-10-25 12:05] LABS: TS Negative Control Passed; TS Panel A 0; TS Panel B 2; TS Positive Control Passed; TSpotTB Negative (Negative)
[2024-10-29 13:44] LABS: Asperg fumigatus Precip Abs NEGATIVE (NEGATIVE); Micropoly faeni Abs NEGATIVE (NEGATIVE); Saccharo pora viridis Abs NEGATIVE (NEGATIVE); Thermo candidus Abs NEGATIVE (NEGATIVE)
== END 2024-10-22 13:10 | disposition home or self-care (01) ==
LOC: HO.HHCL 13:09
PROVIDERS: Hospitalist; PCP Registered Nurse; Visit Provider Registered Nurse
DX: Z11.1 Encounter for screening for respiratory tuberculosis (principal); Z01.84 Encounter for antibody response examination; J45.50 Severe persistent asthma, uncomplicated; R91.8 Other nonspecific abnormal finding of lung field
CPT/HCPCS: 36415; 80048; 82785; 85025; 86331; 86481; 86606; 86609

== ENCOUNTER 2024-12-11 14:28 | Emergency (ER) | payer SELFPAY ==
[2024-12-11 14:34] VITALS: BP 142/73; PULSE 76; RESP 18; TEMP 36.3; O2SAT 96; BMI 40.7
--- NOTE | 2024-12-11 14:39 | ED_ITS ---
HPI - General Adult General Chief complaint: Eye Problems Stated complaint: Both eyes- Watery, Burning Sensation, Itchy Time Seen by Provider: 12/11/24 15:41 Source: patient Mode of arrival: ambulatory Limitations: no limitations History of Present Illness ED Provider: Keaton Serrano HPI narrative: 64 yolc female with pmh of GERD, IBS presents to the ED for bilateraly burning red itchy eyes, eyelid crusting, and yellow drainage. patient denies any change in eye vision, recent trauma, or sleeping with contacts. Related Data Home Medications ?Medication ?Instructions ?Recorded ?Confirmed clonazepam 0.5 mg tablet 0.5 mg PO BEDTIME 10/17/21 0 10/30/23 hydroxyzine HCl 25 mg tablet 25 mg PO BEDTIME anxiety 10/17/21 10/30/23 nebulizers 11/28/21 CPAP (CPAP Machine/Device) 04/06/22 duloxetine 30 mg capsule,delayed 30 mg PO BID 06/27/22 10/30/23 release omega-3 300 mg-dha 120 mg-epa 180 1 cap PO DAILY 06/2710/30/23 mg-fish oil 1,000 mg capsule azelastine 137 mcg (0.1 %) nasal 2 spray intranasal BI D 10/30/23 10/30/23 spray clonazepam 0.5 mg tablet 0.5 mg PO DAILY PRN anxiety 10/30/23 10/30/23 lidocaine 5 % topical patch 1 patch topical DAILY PRN Pain 10/30/23 10/30/23 (Lidoderm) metoprolol tartrate 50 mg tablet 50 mg PO BID 10/30/23 10/30/23 levalbuterol tartrate 45 1 puff inhalation Q4-6H PRN 12/03/23 mcg/actuation aerosol inhaler (Xopenex HFA) Previous Rx's ?Medication ?Instructions ?Recorded omalizumab 150 mg/mL subcutaneous 150 mg subcut Q2W 4 weeks #2 mL 10/18/22 syringe (Xolair) furosemide 20 mg tablet (Lasix) 20 mg PO DAILY 7 days #7 tabs 05/27/23 albuterol sulfate 2.5 mg/3 mL 2.5 mg (3 mL) inhalation Q6H PRN 10/01/23 (0.083 %) solution for nebulization for wheezing 30 da ys #180 mL jcmgxlbmho-cgxmpnojddnnr-dgiwczzg 1 tab PO Q4H PRN Hea dache #20 tabs 11/01/23 50 mg-325 mg-40 mg tablet guaifenesin 600 mg tablet, 600 mg PO BID #10 tabs 08/18 extended release 12 hr (Mucinex) budesonide 0.5 mg/2 mL suspension 0.5 mg (2 mL) inhala tion BID 30 12/03/23 for nebulization days #120 mL brjhcise-xxtlbtkwi-fbakrwzv 3.5 1 drp ophthalmic (eye) Q12H 10 02/03/24 mg/mL-10,000 unit/mL-0.1% eye drops days #5 mL epinephrine 0.3 mg/0.3 mL 0.3 mg (0.3 mL) IM Q10M PRN 03/03/24 injection, auto-injector (EpiPen anaphylaxis 30 days # 2 ea 2-Rell) acetaminophen 500 mg capsule 1,000 mg (2 x 500 mg) PO Q8H PRN 05/29/24 fever or pain #14 caps cetirizine 10 mg tablet 10 mg PO DAILY PRN allergy 0 05/29/24 symptoms #14 tabs ibuprofen 400 mg tablet 400 mg PO Q6H PRN pain #14 t abs 05/29/24 ipratropium bromide 17 2 puff inhalation Q8H #12.9 grams 06/02/24 mcg/actuation HFA aerosol inhaler (Atrovent HFA) codeine 10 mg-guaifenesin 100 mg/5 10 ml PO Q6H PRN co ugh #237 mL 06/08/24 mL oral liquid tobramycin 0.3 % eye drops 1 drp ophthalmic (eye) Q4H #5 mL 06/08/24 levocetirizine 5 mg tablet 5 mg PO DAILY #30 tabs 05/27 04/21 fluticasone furoate 200 1 ea inhalation DAILY #60 ea 06/24/24 mcg-vilanterol 25 mcg/dose inhalation powder (Breo Ellipta) umeclidinium 62.5 mcg/actuation 1 inh inhalation DAILY #30 ea 06/24/24 blister powder for inhalation (Incruse Ellipta) bisacodyl 5 mg tablet,delayed 10 mg (2 x 5 mg) PO BEDT ANNIE 2 days 07/15/24 release (Dulcolax (bisacodyl)) #4 tabs bqwnsb-wttlcmli-eakluqw 2 cap PO BID #120 caps 07/15 (pork)36,000-114,000-180k unit capsule,del rel (Creon) pantoprazole 40 mg tablet,delayed 40 mg PO BID #60 tab s 07/15/24 release peg 3350-electrolytes 236 240 ml PO Q10M 1 day #4,000 mL 07/15/24 gram-22.74 gram-6.74 gram-5.86 gram solution (Golytely) simethicone 125 mg chewable tablet 125 mg PO BID-QID P RN abdominal 07/15/24 (Gas Relief (simethicone)) distention #90 tabs sucralfate 1 gram tablet 2 g (2 x 1 gram) PO DAILY #6 0 tabs 07/17/24 famotidine 40 mg tablet (Pepcid) 40 mg PO DAILY 30 day s #30 tabs 09/02/24 erythromycin 5 mg/gram (0.5 %) eye 0.5 inch ophthalmic (eye) QID 5 12/11/24 ointment days #3.5 grams Allergies Allergy/AdvReac Type Severity Reaction Status Date / Time Penicillins Allergy Severe hives, Verified 12/11/24 14:39 swelling pollen extracts (POLLEN) Allergy Severe ITCHING Verified 12/11/24 14:39 peanut (PEANUT) Allergy Intermediate RASH Verified 12/11/24 14:39 plum Allergy Severe swelling Uncoded 07/15/24 11:27 Review of Systems Review of Systems: bilateral eye redness, discharge yellow Yes all other systems are reviewed and are negative [facility] Past Medical History Medical History (Updated 12/12/24 @ 00:01 by Josie Orellana) COVID-19 Personal history of nicotine dependence Morbid obesity GEORGIE (obstructive sleep apnea) (~2007) Tubular adenoma of colon (~2014) Chronic allergic rhinitis Bronchitis Asthma Surgical History History of endometrial ablation History of colonoscopy History of section Family History Family History Father No problems noted. Mother Family history of cancer Brother Lung cancer, Onset Age: 40 Maternal Aunt Lymphoma Family/Other Breast cancer Social History Social History Household Members: Children Housing: House Do you presently have visiting nurse or other home services: No Alcohol intake: never Patient Tobacco Use Status: Never used Tobacco Tobacco use type: Cigarette Years Smoked: (onset 22yo, 1ppd x 39yrs, 35PYH - quit 2021) e-Cigarette/Vaping Use: Never Used Second Hand Smoke Exposure: No Advance Directives: Yes Advance Directives on File: Yes Advance Directives Date on File: 11/04/23 Current occupational status: disabled 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 Physical Exam ED Vital Signs: Vital Signs - 24 hr 12/11/24 14:34 Temperature 97.4 F Pulse Rate 76 Respiratory Rate 18 Blood Pressure 142/73 H Pulse Oximetry 96 Oxygen Delivery Method Room Air BMI result Body Mass Index 40.7 Const General: cooperative, healthy appearing, comfortable, no acute distress, well developed, alert, awake and Physically active Orientation/consciousness: patient oriented x3 HENMT Head: Yes normal to inspection, Yes No palpable skull fracture present, Yes normocephalic and Yes atraumatic Ears: hearing grossly normal bilaterally, external ears normal, TM's normal bilaterally, TM normal on the right, TM normal on the left, EAC's normal, mastoids normal and no periauricular adenopathy Throat: Yes posterior oropharynx normal, Yes tonsils normal and Yes uvula midline Eyes Other: Bilateral eye exams: positive for redness, slight yellow discharge, yellow crusting of eyelids. Negative for corneal abrasions, corneal ulcer, globe rupture, dendrites, hyphema or flouritcet dye exam. Tonometry pressure in both eyes are normal. Conjunctivae: conjunctival abnormal bilateral (red) Corneas: corneas normal Pupils: Equal, round and reactive pupils present Direct Ophthalmoscopy: No normal light reflex Neck Neck: Yes normal visual inspection, Yes full ROM, Yes no lymphadenopathy, Yes no meningeal signs, Yes trachea midline, Yes supple, No anterior neck swelling and No tender Chest Chest palpation & inspection: normal inspection of the chest and normal palpation of entire chest wall Resp Effort & Inspection: normal respiratory effort and able to speak in complete sentences Auscultation: clear to auscultation bilaterally Cardio Jugular venous distension: no JVD Heart sounds: S1 normal heart sound present and S2 normal heart sound present GI Inspection: Yes normal to inspection Palpation (GI): Soft to palpation, not firm, nontender, no guarding and not rigid General: Yes no CVA tenderness Back/Spine/Pelvis Back: no CVA tenderness and No back tenderness Skin General skin exam: no rashes or lesions noted, elasticity normal and turgor normal Neuro General: patient oriented x3, gait normal, tone normal, moves all extremities, Normal light touch and pain sensation, no meningeal signs, no focal motor deficits and CN's II-XI intact bilaterally Cranial nerves: Yes Equal, round and reactive pupils present Extrem General: Yes normal to inspection, Yes full ROM and Yes capillary refill normal Psych Appearance: grossly normal, well kempt and not disheveled Course Course Course Narrative: RME: 64-year-old female presents to ED for bilateral red eyes itchiness, and yellow pus drainage. Patient denies sleep with eye contacts. Patient denies any recent trauma to the eye. Patient to be evaluated in the ED for Medications Administered Discontinued Medications Generic Name Dose Route Start Last Admin Trade Name Delvinq PRN Reason Stop Dose Admin Fluorescein Sodium 1 strip 12/11/24 15:41 12/11/24 16:46 Fluorescein Sodium Strip EYE-LEFT 12/11/24 15:42 1 strip ONCE ONE Administration Fluorescein Sodium 1 strip 12/11/24 15:41 12/11/24 16:46 Fluorescein Sodium Strip EYE-RIGHT 12/11/24 15:42 1 strip ONCE ONE Administration Tetracaine HCl 3 drop 12/11/24 15:41 12/11/24 16:47 Tetracaine Hcl/Pf 0.5% Oph Joelle 4 Ml Drops EYE-BOTH 12/11/24 15:42 3 drop ONCE ONE Administration Medical Decision Making Medical Decision Making [facility] Narrative: 64-year-old female presents to ED for bilateral eye redness, itchiness, crusting of the eyelids, yellow liquid discharge since yesterday. Patient denies any eye pain or change in vision. Patient denies sleeping with contacts. Patient denies any recent trauma. Patient denies any recent eye surgery. Fluorescein eye dye test on the Wood's lamp negative for signs of corneal abrasion, corneal ulcer, dendrites, hyphema, orbital cellulitits or globe rupture. Left eye tympanometry pressure 17 and right eye 14. Visual acuity right eye 20/40 and left eye 20/70. Patient will be treated as conjunctivitis. Not suspecting gluacoma, orbital cellulitits, globe rupture, herpetic shingles, corneal abrasions, or any other life threatening etiology. Differential Diagnosis Differential Diagnoses: The differential diagnosis associated with the presentation includes Admission/Observation Consideration of admission/observation: Escalation of care including admission/observation considered Independent Historian Clinical information obtained from an independent historian. History obtained from or confirmed by: Other (patient) Prescription Management I considered prescription management with: Antibiotic Discharge Plan Discharge Clinical Impression: Acute bacterial conjunctivitis of both eyes Patient Disposition: Home, Self-Care Instructions: Conjunctivitis (ED) Additional Instructions: You will be discharged with erythromycin. Recommend follow up with the primary care provider and Eye Doctor. Return to the ED immediately for any loss of vision, slurred speech, eye pain, nausea, vomiting, headache, eye swelling, was slept redness, or any other concerning symptoms. Prescriptions: New erythromycin 5 mg/gram (0.5 %) ointment 0.5 inch ophthalmic (eye) QID 5 Days Qty: 3.5 0RF No Action Xolair 150 mg/mL syringe 150 mg subcut Q2W 28 Days Qty: 2 11RF Rx Instructions: On Fridays Next Dose 11/01/23 epinephrine [EpiPen 2-Rell] 0.3 mg/0.3 mL auto-injector 0.3 mg IM Q10M PRN (Reason: anaphylaxis) 30 Days Qty: 2 6RF Rx Instructions: for 2 doses Atrovent HFA 17 mcg/actuation HFA aerosol inhaler 2 puff INHALATION Q8H Qty: 12.9 11RF levocetirizine 5 mg tablet 5 mg PO DAILY Qty: 30 11RF Incruse Ellipta 62.5 mcg/actuation blister with device 1 inh INHALATION DAILY Qty: 30 11RF fluticasone furoate-vilanterol [Breo Ellipta] 200-25 mcg/dose blister with device 1 ea INHALATION DAILY Qty: 60 11RF sucralfate 1 gram tablet 2 g PO DAILY Qty: 60 3RF famotidine [Pepcid] 40 mg tablet 40 mg PO DAILY 30 Days Qty: 30 4RF clonazepam 0.5 mg tablet 0.5 mg PO DAILY PRN (Reason: anxiety) azelastine 137 mcg (0.1 %) spray,non-aerosol 2 spray intranasal BID lidocaine [Lidoderm] 5 % adhesive patch,medicated 1 patch topical DAILY PRN (Reason: Pain) Rx Instructions: leave on most painful area for up to 12 hrs metoprolol tartrate 50 mg tablet 50 mg PO BID poyretdivi-qppuoxrreidbt-lrpl 50-325-40 mg Tablet 1 tab PO Q4H PRN (Reason: Headache) Qty: 20 0RF guaifenesin [Mucinex] 600 mg Tablet Extended Release 12hr 600 mg PO BID Qty: 10 0RF acetaminophen 500 mg capsule 1,000 mg PO Q8H PRN (Reason: fever or pain) Qty: 14 0RF ibuprofen 400 mg tablet 400 mg PO Q6H PRN (Reason: pain) Qty: 14 0RF cetirizine 10 mg tablet 10 mg PO DAILY PRN (Reason: allergy symptoms) Qty: 14 0RF codeine-guaifenesin 10-100 mg/5 mL liquid 10 ml PO Q6H PRN (Reason: cough) Qty: 237 0RF tobramycin 0.3 % drops 1 drp ophthalmic (eye) Q4H Qty: 5 0RF clonazepam 0.5 mg tablet 0.5 mg PO BEDTIME (DME) CPAP Machine/Device Device See Rx Instructions .ROUTE Rx Instructions: As directed hydroxyzine HCl 25 mg tablet 25 mg PO BEDTIME (DME) nebulizers [facility] See Rx Instructions .ROUTE Rx Instructions: As directed duloxetine 30 mg capsule,delayed release(DR/EC) 30 mg PO BID omega 0-xxv-whl-fish oil 300 mg (120 mg- 180mg)-1,000 mg capsule 1 cap PO DAILY furosemide [Lasix] 20 mg tablet 20 mg PO DAILY 7 Days Qty: 7 0RF levalbuterol tartrate [Xopenex HFA] 45 mcg/actuation HFA aerosol inhaler 1 puff inhalation Q4-6H PRN budesonide 0.5 mg/2 mL suspension for nebulization 0.5 mg inhalation BID 30 Days Qty: 120 11RF pantoprazole 40 mg tablet,delayed release (DR/EC) 40 mg PO BID Qty: 60 6RF Creon 36,000-114,000- 180,000 unit capsule,delayed release(DR/EC) 2 cap PO BID Qty: 120 6RF peg 3350-electrolytes [Golytely] 236-22.74-6.74 -5.86 gram recon soln 240 ml PO Q10M 1 Days Qty: 4000 0RF Rx Instructions: until fecal effluent is clear; do not exceed a total volume of 2,000 mL bisacodyl [Dulcolax (bisacodyl)] 5 mg tablet,delayed release (DR/EC) 10 mg PO BEDTIME 2 Days Qty: 4 0RF simethicone [Gas Relief (simethicone)] 125 mg tablet,chewable 125 mg PO BID-QID PRN (Reason: abdominal distention) Qty: 90 6RF neomycin-polymyxin B-dexameth 3.5mg/mL-10,000 unit/mL-0.1 % drops,suspension 1 drp ophthalmic (eye) Q12H 10 Days Qty: 5 0RF albuterol sulfate 2.5 mg /3 mL (0.083 %) solution for nebulization 2.5 mg inhalation Q6H PRN (Reason: for wheezing) 30 Days Qty: 180 11RF Referrals: Jerzy Bond [Physician, Ophthalmology] - 2 days Referral Note: Red eyes conjunctivitis Clinical Impression: Acute bacterial conjunctivitis of both eyes Lilian Mcclellan FNP [Primary Care Provider, Medical] - 2 days Referral Note: Conjunctivitis Clinical Impression: Acute bacterial conjunctivitis of both eyes Stand Alone Forms: Work/School Release Interventions: ED Discharge Assessment Last Done: 12/11/24 17:08 Discharge Date/Time: 12/11/24 17:08 Print Language: Prydeinig
[2024-12-11 16:33] VITALS: BP 135/65; PULSE 71; RESP 16; O2SAT 96
[2024-12-11] MEDS: Fluorescein Sodium STRIP 1 STRIP EYE-LEFT (16:46)
[2024-12-11] MEDS: Fluorescein Sodium STRIP 1 STRIP EYE-RIGHT (16:46)
[2024-12-11] MEDS: Tetracaine HCl/PF 0.5% Oph Sol 4 ML DROPS 3 DROP EYE-BOTH (16:47)
[2024-12-11 17:08] VITALS: BP 135/65; PULSE 71; RESP 16; TEMP -17.7; TEMP 0; O2SAT 96
--- OUTSIDE RECORDS SUMMARY | 2024-12-11 18:25 | XMS_ITS | Clinical Summary ---
Author Organization [facility] Address [address] [place] [address] [place] [id number] Phone Care Team Providers Care Sewing Demonstrator Name Role Phone Unavailable Primary Care Provider [...] file Medical Devices Not on file Insurance [facility] [address] [place] [address] C[employer] A[employer] C3 ACO C3 ACO C3 ACO C3 ACO C3 ACO C3 ACO [facility] C3 ACO Additional Source Comments The information contained in this document represents components of the legal health record. It is not the complete legal health record.[facility]
--- OUTSIDE RECORDS SUMMARY | 2024-12-11 18:25 | XMS_ITS | Encounter Summary ---
Author Organization [employer] Address [address] [facility] 7[address] [place] [address] Care Team Providers Care Cooker Sulfate Name Role Phone [facility] Primary Care Provider Mono Huggins Unavailable Unavailable Reason for Visit * Reason Onset Date Comments Nurse Triage 12/11/2024 Encounter Details Date Type Department Care Team ([facility] st Contact Info) Description 12/11/2024 Telephone [facility] MED[facility]INE [address] [place] [address] [facility] [place], [facility] [address] [place] [address] Nurse Triage Social History Tobacco Use Types Packs/Day Years [...] encounter Miscellaneous Notes * Telephone Encounter - Haven Joseph RN - 12/11/2024 10:39 AM EDT TC placed to patient [phone] via [employer] (Mini #[id number]) in regards to below message. Patient reports she has been experiencing eye pain x1 week. Patient reports L eye is worse than R eye. Patient reports eyes feel like they are hot, burning . Patient reports pain is a 8/10, reportsredness in L eye and reports mild swelling in L eye (has applied cold water and ice). Patient reports being outside in the sunlight also worsens the pain. Patient does endorse yellow discharge. Patient advised to seek walk in center today for evaluation. Patient upset as she reports she was informed she would receive a TC with an appt. Patient advised we do not have an appt available today in the clinic unfortunately for RN to schedule patient however we do have the walk in center open today until 4:30om (last appt at 4pm) which patient can be seen. Patient was unhappy however reported okay and disconnected call. Patient to f/u PRN. Protocol Used: Eye Pain and Other Symptoms (Adult) Protocol-Based Disposition: Go to Office or Video Visit Now Video visit not offered Positive Triage Questions: * Moderate eye pain or discomfort (e.g., interferes with normal activities or awakens from sleep; more than mild) * Looking at light causes Moderate to Severe eye pain (i.e., photophobia) * Yellow or green pus occurs * Eye pain present > 24 hours * Patient wants to be seen * All higher-acuity triage questions were negative * Telephone Encounter - Elisa Rashid - 12/11/2024 10:37 AM EDT Symptoms: Vision Loss or Change, Eye Pain - Not From Injury, Eye - Pus or Discharge Outcome: Talk to a nurse or provider within 15 minutes Reason: Caller denied all higher acuity questions The caller accepted this outcome. Contact pt at [phone] ([email or web address]) documented in this encounter Plan of Treatment Not on file documented as of this encounter Visit Diagnoses Not on filedocumented in this encounter Additional Health Concerns Assessment Noted Time PHQ-9 Depression Total Score: 0 08/25/19 25 9:53 AM EDT documented as of this encounter Care Teams Cooker Sulfate Relationship Specialty Start Date End Date Lilian Mcclellan FNP [address] [place] [address] PCP - General Family Medicine 04/26/22 Mono Huggins FNP [address] [place] [address] Nurse Practitioner Family Medicine 01/21/23 Maureen Gastelum Weed SprayerLocal Superintendent 02/11/24 documented as of this encounter
--- OUTSIDE RECORDS SUMMARY | 2024-12-11 18:25 | XMS_ITS | Encounter Summary ---
Author Organization [facility] Address [address] [place] [address] Phone Care Team Providers Care Battery Tester Name Role Phone Unavailable Primary Care Provider Unavailabl e Encounter Details Date Type Department Care Team (Late st Contact Info) Description 02/13/2019 Ancillary Orders [facility] [address] [place] [address] Shannan Yee PA [address] [place] [address] [email or web address] Palpitations Social History Tobacco Use Types Packs/Day [...] It is not the complete legal health record.[facility]
--- OUTSIDE RECORDS SUMMARY | 2024-12-11 18:25 | XMS_ITS | Encounter Summary ---
Author Organization [employer] Address [address] [place] [address] [address] [place] [address] Care Team Providers Care Quill Layer Name Role Phone Lilian Mcclellan DAM WORKER Primary Care Provider [phone] Mono Huggins DAM WORKER Unavailable Unavailable Reason for Referral * Consultation (Routine) - Pending Review Specialty Diagnoses / Procedures Referred By Fabiana rosa Referred To Contact Pharmacy Diagnoses Diastolic dysfunction without heart failure Sun King MD [address] [place] [address] Phone: tel: fax: Referral ID Status Reason Start Date Expiration Date Visits Requested Visits Authorized [id number] Pending Review Continuity of Care 03/17/2024 03/17/2025 6 6 Encounter Details Date Type Department Care Team (Late st Contact Info) Description 03/17/2024 Orders Only [facility] [address] [place], [place] [phone] Sun King MD [address] [place], [place] [phone] Diastolic dysfunction without heart failure (Primary Dx) [...] documented as of this encounter Care Teams Quill Layer Relationship Specialty Start Date End Date Lilian Mcclellan FNP [address] [place] [address] PCP - General Family Medicine 04/26/22 Mono Huggins FNP [address] [place] [address] Nurse Practitioner Family Medicine 01/21/23 Maureen Gastelum Data EngineerPosting Clerk 02/11/24 documented as of this encounter
--- OUTSIDE RECORDS SUMMARY | 2024-12-11 18:25 | XMS_ITS | Encounter Summary ---
Author Organization [employer] Address [address] [facility] 7t [place] [address] Care Team Providers Care Baggage Handler Name Role Phone [place] [facility] Primary Care Provider [phone] Mono Huggins PIANO TEACHER Unavailable Unavailable Reason for Visit * Reason Onset Date Comments Referral 08/30/2023 Encounter Details Date Type Department Care Team ([facility] st Contact Info) Description 08/30/2023 Telephone [facility] MEDICINE [address] [place] [address] [facility], [facility] [address] [place] [address] Referral Social History Tobacco Use Types Packs/Day [...] receive injections in shoulders and knees at [facility] [place]. At this time reports knees are all set and are not bothering her. [facility] reviewed, pt. Last seen by ortho and [...] 09/02/2023 10:59 AM EDT TC returned to [facility] [phone] however no answer, RN left requesting CB to red team nurses. [facility] to f/u PRN. * Telephone Encounter - Dain Lucia - 08/30/2023 3:43 PM EDT Tc from Maureen with [facility] calling requesting status on physical therapy and orthopedics referral. Please contact Maureen at [phone]. documented in this encounter Plan of Treatment Not on file documented as of this encounter Visit Diagnoses Not on filedocumented in this encounter Additional Health Concerns Assessment Noted Time PHQ-9 Depression Total Score: 0 05/28/19 9:46 AM EDT documented as of this encounter Care Teams Baggage Handler Relationship Specialty Start Date End Date Lilian Mcclellan FNP [address] [place] [address] PCP - General Family Medicine 04/26/22 Mono Huggins FNP [address] [place] [address] Nurse Practitioner Family Medicine 01/21/23 Maureen Gastelum Project Control OfficerUi Developer With [employer] 02/11/24 documented as of this encounter
--- OUTSIDE RECORDS SUMMARY | 2024-12-11 18:25 | XMS_ITS | Encounter Summary ---
Author Organization [employer] Address [address] [facility] [address]t [place] [address] Care Team Providers Care Fur Mixer Operator Name Role Phone [place] [facility] Primary Care Provider [phone] Mono Huggins Unavailable Unavailable Reason for Visit * Reason Comments Med Refill Encounter Details Date Type Department Care Team ([facility] st Contact Info) Description 05/12/2024 Refill [facility] MEDICINE [address] [place] [address] [place] [facility] [address] [place] [address] Class 3 severe obesity due to excess [...] (BMI) of 40.0 to 44.9 in adult (HCC) documented in this encounter Additional Health Concerns Assessment Noted Time PHQ-9 Depression Total Score: 0 01/15/20 24 11:36 AM EST documented as of this encounter Care Teams Fur Mixer Operator Relationship Specialty Start Date End Date Lilian Mcclellan FNP [address] [place] [address] PCP - General Family Medicine 04/26/22 Mono Huggins FNP [address] [place] [address] Nurse Practitioner Family Medicine 01/21/23 Maureen Gastelum Blade Grader OperatorEndoscopy Registered Nurse 02/11/24 documented as of this encounter
--- OUTSIDE RECORDS SUMMARY | 2024-12-11 18:25 | XMS_ITS | Clinical Summary ---
Author Organization [employer] Address [address] [place] [address] 7[address] [place] [address] Care Team Providers Care Assistant Press Operator Name Role Phone Lilian Mcclellan OBSTETRICS SPECIALIST Primary Care Provider [phone] Mono Huggins OBSTETRICS SPECIALIST Unavailable Unavailable Allergies Active Allergy Reactions Criticality [...] aerosol powderIndications: Severe persistent asthma without complication (HCC) INHALE 1 PUFF EVERY DAY AT THE SAME TIME 30 each 11 06/05/19 24 Active lidocaine (Lidoderm) 5 % patchIndications:C hronic [...] 1 WEEK AFTER STARTING 03/07/19 25 Active triamcinolone (Kenalog) 0.1 % ointmentIndication s:Groin rash APPLY TOPICALLY TO THE AFFECTED AREA(S) TWICE DAILY DIRECTED FOR FOURTEEN DAYS 15 g 1 06/11/19 25 Active hydrOXYzine HCl (Atarax) 25 MG tabletIndications: Anxiety Take one tab during the day, may take two tabs at bedtime for anxiety as needed. 90 tablet 07/07/19 25 Active clonazePAM (KlonoPIN) 0.5 MG tabletIndications: [...] BEDTIME 90 tablet 1 09/16/19 25 Active tiZANidine (Zanaflex) 4 MG capsule Take 1 capsule (4 mg) by mouth if needed in the morning, at noon, and at bedtime for muscle spasms for up to 10 days. 30 capsule 10/29/19 25 Active albuterol (2.5 MG/3ML) 0.083% nebulizer solutionIndication s:Restrictive lung disease INHALE 1 AMPULE USING A NEBULIZER EVERY 4 HOURS NEEDED FOR WHEEZING OR SHORTNESS OF BREATH 90 mL 1 10/29/19 25 Active Active Problems Problem Noted Date Diagnosed Date Routine adult health maintenance 10/28/2024 Assessment & Plan (11/18/2024 9:43 AM EDT): Sciatica of left side 10/28/2024 Assessment & Plan (11/18/2024 9:43 AM EDT): Skin lesion 10/28/2024 Assessment & Plan (11/18/2024 9:43 AM EDT): Orders: Referral to [facility] Derm Skin Adult; Future Sleep apnea 10/28/2024 Assessment & Plan (11/18/2024 9:43 AM EDT): Hypertension 05/18/2024 Assessment & Plan (11/18/2024 9:43 AM EDT): Groin rash 12/31/2023 Assessment & Plan (12/31/2023 [...] albuterol for asthma. RTC prn Pulmonary hypertension (CMS/HCC) 07/16/2023 Assessment & Plan (11/05/2023 11:21 AM [...] negative Has upcoming appt. Pap: Followed by [facility], Dr. Irizarry C-scope: 2019, repeat 5 years BMD: Routine age 67 LDCT done 08/24/22 was Lung RADS 2 - plan is for yearly LDCT HCV Screen: Neg 05/2022 HIV Screen: Neg 05/2022 Screening Labs: A1c 5.6 05/2022 Severe persistent asthma 05/09/2022 Overview (06/12/2022): Followed by [facility] pulmonology Severe allergic asthma Incruse Ellipta Levalbuterol [...] any questions or concerns, she should call [facility] BH Department and/or PCP. I have [...] be retiring in approx 1 year, but [facility] should have new provider in place [...] plan. Palpitations 10/15/2017 Overview (06/12/2022): Followed by [facility] cardiology Metoprolol XR 25mg daily Assessment & Plan (11/18/2022 4:26 PM EDT): - No current sx during office visit - 2020 echo with normal EF. Mild elevation in LV filling pressure. 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 Date Type Department Care Team Description 12/11/2024 Travel 12/11/2024 Telephone [facility]IC[facility] [address] [place] [address] Lilian Mcclellan FNP Nurse Triage 10/28/2024 10:45 AM EDT Office Visit [facility] [address] [place] [address] Eryn Bowman NP Routine adult health maintenance (Primary Dx); Sciatica of left side; Skin lesion; Hypertension, unspecified type; Sleep apnea, unspecified type; Seasonal allergic rhinitis due to pollen 10/28/2024 Refill [facility] [address] [place] [address] Lilian Mcclellan FNP Restrictive lung disease 10/28/2024 Travel 10/22/2024 Orders Only GENERIC EXTERNAL DATA DEPARTMENT Provider, Generic External Data 10/22/2024 Telephone [facility] [address] [place] [address] Lilian Mcclellan FNP Lab Orders 09/15/2024 Refill [facility] [address] [place] [address] [place], Lilian, [facility] from Last 3 Months Immunizations Immunization Administration [...] Sign Reading Time Taken Comments Blood Pressure 141/89 10/28/2024 10:59 AM EDT n meds Pulse 67 10/28/2024 10:59 AM EDT Temperature 37.1 C (98.7 F) 10/28/2024 10:59 AM EDT Respiratory Rate 15 10/28/2024 10:59 AM EDT Oxygen Saturation 99% 10/28/2024 10:59 AM EDT Inhaled Oxygen Concentration - - Weight 90.4 kg (199 lb 3.2 oz) 10/28/2024 10:59 AM EDT Height 149.9 cm (4' 11 ) 10/28/2024 10:59 AM EDT Body Mass Index 40.23 10/28/2024 10:59 AM EDT Plan of Treatment Health Maintenance Due Date Last Done Comments CT Colonography 1962 FIT DNA/Cologuard 1962 FIT 1962 FOBT 1962 Sigmoidoscopy 1962 Pap Smear 08/28/1983 Zoster Vaccines (1 of 2) 2012 Hepatitis B Vaccines (1 of 3 - Risk 3-dose series) 2022 RSV Patients and Patients Aged 60 years or older (1 - Risk 60-74 years 1-dose series) 2022 Mammogram 02/20/2023 02/20/2021, 02/26, 03/19/2020 Colonoscopy 09/28/2024 09/29/2019 Colorectal Cancer Screening 09/28/2024 COVID-19 Vaccine ( season) 2024 05/11/2020 Influenza Vaccine (#1) 2024 9, 12/25/2016, 01/13/2016, Additional history exists SDOH Screening 08/17/2025 08/17/2024 Depression Screening 08/24/2025 08/24/2024, 08/25/19 25 Disability Screening 08/24/2025 08/24/2024 Alcohol/Substance Use Screening 10/28/2025 10/28/2024 Tobacco Screening 10/28/2025 10/28/2024 Cervical Cancer Screening 12/28/2025 HPV/Cotest 12/28/2025 12/28/2020, [...] Procedure Name Priority Date/Time Associated Diagnosis Comments HYPERSENSITIVITY PNUEMONITIS PROFILE Routine 10/22/2024 1:15 PM EDT IMMUNOGLOBULIN E Routine 10/22/2024 1:15 PM EDT BASIC METABOLIC PANEL Routine 10/22/2024 1:15 PM EDT CBC WITH AUTO DIFFERENTIAL Routine 10/22/2024 1:15 PM EDT T-SPOT(R).TB Routine 10/22/2024 1:15 PM EDT Screening examination for pulmonary tuberculosis HEPATITIS C AB W/REFL TO HCV RNA, [...] Recently Relevant to Health Maintenance Results * T-SPOT??.TB (10/22/2024 1:15 PM EDT) [facility] T Spot TB Negative Negative [facility] Comment:A negative test resu lt does not exclude the possibilityof exposure to or infection with Mycobacteriumtuberculosis (M. tuberculosis). Patients with recentexposure to TB infected individuals exhibiting anegative T-SPOT.TB result should be considered forretesting within 6 weeks or if other relevant clinicalsymptoms indicate. Results from T-SPOT.TB testing mustbe used in conjunction with each individual'sepidemiological history, current medical status,and results of other diagnostic evaluations.The T-SPOT.TB test is qualitative and results arereported as positive, borderline, or negative, giventhat the test controls perform as expected. In linewith the Centers for Disease Control and Prevention's2010 recommendation to report quantitative measurementsalongside the qualitative result, the laboratoryprovides spot counts for informational purposes only.The T-SPOT.TB test should not be interpreted as aquantitative test. TS PANEL A 0 [facility] TS PANEL B 2 [facility] Negative Control Passed [facility] Positive Control Passed [facility] Comment:For additional infor kimi, please refer tohttp://education.H[employer]ify/faq/ULW900(This link is being provided for informational/educational purposes only.)THIS TEST WAS PERFORMED AT:[id number] [place] [address]NQTZDNV W. MASON,MD,PHD 10/22/2024 1:15 PM EDT 10/22/2024 4:06 PM EDT [facility] OBSTETRICS SPECIALIST LAB BLOOD ORDERABLES Final Re sult [facility] [address] [place] [phone] * CBC auto differential (10/22/2024 1:15 PM EDT) White Blood Count 7.2 4.8 - 10.8 X10*3/uL [facility] Red Blood Count 4.60 4.20 - 5.50 X10*6/uL [facility] Hemoglobin 13.6 12.0 - 16.0 g/dl [facility] Hematocrit 40.2 37.0 - 47.0 % [facility] Mean Corpuscular Volume 87.4 80.0 - 98.0 fL [facility] Mean Corpuscular Hemoglobin 29.6 27.0 - 33.0 pg [facility] Mean Corpuscular HGB Conc 33.8 31.0 - 35.0 g/dl [facility] Red Cell Distribution Width 14.1 11.0 - 16.0 % [facility] Platelet Count 313 160 - 400 X10*3/uL [facility] Mean Platelet Volume 12.0 9.4 - 12.3 fL [facility] Neutrophils Percent Auto 56.6 45 - 73 % [facility] Imm Gran Pct Auto 0.3 0.0 - 0.4 % [facility] Lymphocytes Percent Auto 32.2 20 - 40 % [facility] Monocytes Percent Auto 8.3 2 - 11 % [facility] Eosinophils Percent Auto 1.8 0 - 4 % [facility] Basophils Percent Auto 0.8 0 - 2 % [facility] NRBC Pct Auto 0.0 0.0 - 0.2 /100WBC [facility] Neutrophils Absolute Auto 4.1 2.0 - 8.3 x10*3/uL [facility] Imm Gran Abs Auto 0.02 0.00 - 0.03 X10*3/uL [facility] Lymphocytes Absolute Auto 2.3 1.2 - 4.9 X10*3/uL [facility] Monocytes Absolute Auto 0.6 0.1 - 1.2 X10*3/uL [facility] Eosinophils Absolute Auto 0.1 0.0 - 0.4 X10*3/uL [facility] Basophils Absolute Auto 0.1 0.0 - 0.2 X10*3/uL [facility] NRBC Abs Auto 0.000 0.0 - 0.012 X10*3/uL [facility] 10/22/2024 1:15 PM EDT 10/22/2024 4:06 PM EDT us Generic External Data Provider LAB BLOOD ORDERAB LES Final Result [facility] [address] [place] [phone] * Hypersensitivity Pneumonitis Screen (10/22/2024 1:15 PM EDT) Aspergillus fumigatus Ab NEGATIVE NEGATIVE [facility] Micropolyspora Faeni NEGATIVE NEGATIVE [facility] Centerpoint Serum Abs NEGATIVE NEGATIVE [facility] Thermoactinomyces candidus NEGATIVE NEGATIVE [facility] Thermoactinomyces vulgaris Ab NEGATIVE NEGATIVE [facility] Saccharomonospora viridis Ab NEGATIVE NEGATIVE [facility] Comment:This test was develo ped and its analytical performancecharacteristics have been determined by [employer].It has not been cleared or approved by the FDA. This assayhas been validated pursuant to the CLIA regulations and isused for clinical purposes.THIS TEST WAS PERFORMED AT:[facility] [id number] [place] [address]NVUURALEXANDRIA RINALDI MD,PHD,AILYN 10/22/2024 1:15 PM EDT 10/22/2024 4:11 PM EDT Generic External Data Provider LAB BLOOD ORDERAB LES Final Result Performing Organization Address [facility]/ZIP Co de Phone Number [facility] [address] [place] [phone] * (ABNORMAL) Immunoglobulin E (10/22/2024 1:15 PM EDT) Pathologist [facility] Immunoglobulin E 266(A) <LI=070 kU/L [facility] Comment:THIS TEST WAS PERFOR MED AT:[facility] [address] [address]SMZXJFRANCISCO JAVIER DUVAL MD 10/22/2024 1:15 PM EDT 10/22/2024 4:11 PM EDT Generic External Data Provider LAB BLOOD ORDERAB LES Final Result Performing Organization Address [facility]/ZIP Co de Phone Number [facility] [address] [place] [phone] * Basic Metabolic Panel (10/22/2024 1:15 PM EDT) Sodium 140 135 - 145 mmol/L [facility] Potassium 3.7 3.3 - 5.1 mmol/L [facility] Chloride 104 96 - 108 mmol/L [facility] Carbon Dioxide 27 22 - 29 mmol/L [facility] Anion Gap 13 12 - 20 [facility] Urea Nitrogen (BUN) 11 9 - 16 mg/dL [facility] Creatinine, Serum 0.93 0.5 - 1.4 mg/dL [facility] Estimated Glomerular Filt Rate >60 [facility] Comment:Chronic Kidney Disea se: Estimated GFR < 60 mL/min/1.75l5Mdcxek Kidney Disease: Estimated GFR < 15 mL/min/1.73m2 Glucose 102 60 - 115 mg/dL [facility] Calcium 9.6 8.4 - 10.2 mg/dL [facility] 10/22/2024 1:15 PM EDT 10/22/2024 4:11 PM EDT Generic External Data Provider LAB BLOOD ORDERAB LES Final Result Performing Organization Address City/[facility]/ZIP Co de Phone Number [facility] [address] [place] [phone] * Hepatitis C Antibody with Reflex to HCV, RNA, Quantitative, Real-Time PCR (05/31/2022 8:50 AM EDT) Hepatitis C Antibody NON-REACT JAE NON-REACT JAE [facility] Index 0.02 <1.00 [facility] Comment: HCV antibody was non-reactive. There is no laboratory evidence of HCV infection. In most cases, no further action is required. However, if recent HCV exposure is suspected, a test for HCV RNA (test code 99595) is suggested. For additional information please refer to http://education.Hastify/faq/VBZ52o8 (This link is being provided for informational/ educational purposes only.) Blood Venous blood specimen / Unknown 05/31/2022 8:50 AM EDT 05/31/2022 8:51 AM EDT Narrative [facility] - 06/01/2022 5:54 PM EDT FASTING:YES FASTING: YES [facility] OBSTETRICS SPECIALIST LAB BLOOD ORDERABLES Final Re sult Performing Organization Address City/[facility]/ZIP Co de Phone Number [facility] [address] [place] [address], [place] [address] [facility] [address] [place] [phone] * HIV-1/2 Antigen and Antibodies, Fourth Generation, with Reflexes (05/31/2022 8:50 AM EDT) [facility] HIV Antigen/Antibody, 4th Generation NON-REAC TIVE NON-REAC TIVE [facility] Comment: HIV-1 antigen and HIV-1/HIV-2 antibodies were [...] purpose. For additional information please refer to http://education.Hastify/faq/EMV348 (This link is being provided for informational/ educational purposes only.) The performance of this assay has not been clinically validated in patients less than 2 years old. Blood Venous blood specimen / Unknown 05/31/2022 8:50 AM EDT 05/31/2022 8:51 AM EDT Narrative [facility] - 06/01/2022 5:54 PM EDT FASTING:YES FASTING: YES [facility] LAB BLOOD ORDERABLES Final Re sult [facility] [address], [place] [address] [facility] [address] [place] [address] * (ABNORMAL) Lipid Panel, Standard (05/31/2022 8:50 AM EDT) [facility] Cholesterol, Total 218(H) <200 mg/dL [facility] HDL Cholesterol 62 > OR = 50 mg/dL [facility] Triglycerides 206(H) <150 mg/dL [facility] Comment: If a non-fasting specimen was collected, consider repeat triglyceride testing on a fasting specimen if clinically indicated. Griselda et al. J. of Clin. Lipidol. 2015;9:129-169. LDL Cholesterol 124(H) mg/dL (calc) [facility] Communication Comment: Reference range: <100 Desirable range <100 mg/dL for primary prevention; <70 mg/dL for patients with CHD or diabetic patients with > or = 2 CHD risk factors. LDL-C is now calculated using the Zheng calculation, which is a validated novel method providing better accuracy than the Friedewald equation in the estimation of LDL-C. Mario SMITH et al. ANOOP. 2013;310(19): 6819-1475 (http://education.[employer]/faq/JTJ397) Chol/HDLC Ratio 3.5 <5.0 (calc) [facility] Non-HDL Cholesterol 156(H) <130 mg/dL (calc) [facility] Comment: For patients with diabetes plus 1 major ASCVD risk factor, treating to a non-HDL-C goal of <100 mg/dL (LDL-C of <70 mg/dL) is considered a therapeutic option. Blood Venous blood specimen / Unknown 05/31/2022 8:50 AM EDT 05/31/2022 8:51 AM EDT Narrative [facility] - 06/01/2022 5:54 PM EDT FASTING:YES FASTING: YES [facility] OBSTETRICS SPECIALIST LAB BLOOD ORDERABLES Final Re sult [facility] [address], [place] [address] [facility] [address] [place] [phone] * Mammography Report 1 (02/20/2021 10:24 AM [...] mRNA E6/E7 rflx Not Detected Not Detected [facility] Comment: Methodology: Director Athletic-Mediated Amplification This assay detects E6/E7 viral messenger RNA (mRNA) from 14 high-risk HPV types (16,18,31,33,35,39,45,51,52,56,58,59,66,68). The analytical performance characteristics of this assay have been determined by [facility]. The modifications have not been cleared or approved by the FDA. This assay has been validated pursuant to the CLIA regulations and is used for clinical purposes. For additional information, please refer to http://education.Hastify/faq/TIE145h9 (This link if provided for information/ educational purposes only.) THIS TEST WAS PERFORMED AT: [facility] [address] [place] [address] [address],[place] [address] FRANCISCO JAVIER DUVAL MD 12/28/2020 11:1 4 AM EDT Macarena Rodriguez HISTORICAL/NON ORDERABLE LABS Fi nal Result [facility] [address] * Colonoscopy (09/29/2019) Colonoscopy Normal Normal Narrative Patricia Arreaga - 09/29/2019 Repeat in 5 year due to history of tubular adenomas Historical Provider HEALTH MAINTENANCE Final Result from Last 3 Months or Most Recently Relevant to Health Maintenance Insurance [employer] Care Teams Assistant Press Operator Relationship Specialty Start Date End Date Lilian Mcclellan FNP [address] [place] [phone] PCP - General Family Medicine 04/26/22 Mono Huggins FNP [address] [place] [phone] Nurse Practitioner Family Medicine 01/21/23 Maureen Gastelum Layout OperatorPharmacy Picking Technician 02/11/24
--- OUTSIDE RECORDS SUMMARY | 2024-12-11 18:25 | XMS_ITS | Encounter Summary ---
Author Organization [employer] Address [address] [place] [address] [address] [place] [address] Care Team Providers Care Terrazzo Helper Name Role Phone [facility] Primary Care Provider [phone] Mono Huggins Unavailable Unavailable Reason for Visit * Reason Onset Date Comments Results 08/22/2022 TB Test Encounter Details Date Type Department Care Team ([facility] Contact Info) Description 08/22/2022 Telephone [facility] [address] [place] [address] [place], [facility] [address] [place] [address] Results (TB Test) Social History Tobacco Use [...] - 08/23/2022 11:48 AM EDT T/C to [phone] through WillCall id - [id number] for TB test, pt. Informed that clinic does not receive result yet, clinic will call once result is available. Pt. Verbally agreed and understood. * Telephone Encounter - Anabella Eric - 08/22/2022 1:47 PM EDT Tc from patient requesting tb test results. Patient speaks polish documented in this encounter Plan of Treatment Not on file documented as of this encounter Visit Diagnoses Not on filedocumented in this encounter Additional Health Concerns Assessment Noted Time PHQ-9 Depression Total Score: 3 08/10/19 23 10:21 AM EDT documented as of this encounter Care Teams Terrazzo Helper Relationship Specialty Start Date End Date Lilian Mcclellan FNP [address] [place] [phone] PCP - General Family Medicine 04/26/22 Mono Huggins FNP [address] [place] [phone] Nurse Practitioner Family Medicine 01/21/23 Maureen Gastelum Drum TesterSack Cleaner 02/11/24 documented as of this encounter
--- OUTSIDE RECORDS SUMMARY | 2024-12-11 18:25 | XMS_ITS | Clinical Summary ---
Author Organization [address] Address [address] [place] [phone] Care Team Providers Care Hob Machine Operator Name Role Phone Halima Hickman MD Primary [...] 2012 Diabetes screening 10/13/2020 10/13/2017 Influenza vaccine 09/25/2024 Covid-19 vaccine series (2024- season) 2024 RSV Immunization (1 - 1-dose 75+ series) [...] - 144 mmol/L 10/13/2017 4:37 PM EDT [facility] Potassium 3.4 3.4 - 4.8 mmol/L 10/13/2017 4:37 PM EDT [facility] Chloride 107 98 - 107 mmol/L 10/13/2017 4:37 PM EDT [facility] CO2 24 20 - 30 mmol/L 10/13/2017 4:37 PM EDT [facility] Anion Gap 11 7 - 17 10/13[facility]2017 [facility] Glucose 142(H) 70 - 100 mg/dL 10/13/2017 4:37 PM EDT [facility] BUN 10 8 - 18 mg/dL 10/13/2017 4:37 PM EDT [facility] Creatinine 0.90 0.40 - 1.30 mg/dL 10/13/2017 4:37 PM EDT [facility] Calcium 8.8 8.8 - 10.2 mg/dL 10/13/2017 4:37 PM EDT [facility] BUN/Creatinine Ratio 11.1 8.0 - 23.0 10/13/2017 4:37 PM EDT [facility] eGFR (Afr Amer) >60 >60 mL/min/1.7 3m2 10/13/2017 4:37 PM EDT [facility] Comment: Values under 60mL/min/1.73m2 may indicate CKD if noted for more than 3 months. eGFR is only valid if creatinine is at steady state. eGFR (NON -Jessie n) >60 >60 mL/min/1.7 3m2 10/13/2017 4:37 PM EDT [facility] Comment: Values under 60mL/min/1.73m2 may indicate CKD if noted for more than 3 months. eGFR is only valid if creatinine is at steady state. Blood specimen (specimen) Venipuncture / Unknown 10/13/2017 4:07 PM EDT 10/13/2017 4:09 PM EDT Luis Mederos MD LAB BLOOD ORDERABLES Final Resu lt [facility] [address] [place] [address], [facility] [phone] from Last 3 Months or Most Recently Relevant to Health Maintenance Insurance [id number] MED[place]ID [id number] MEDICAID [id number] MEDICAID Care Teams Hob Machine Operator Relationship Specialty Start Date End Date Halima Hickman MD PCP - General 10/13/17
--- OUTSIDE RECORDS SUMMARY | 2024-12-11 18:25 | XMS_ITS | Encounter Summary ---
Author Organization [employer] Address [address] [place] [address] Care Team Providers Care Grades 9 12 Tutor Name Role Phone Lilian Mcclellan WOOD CARVER Primary Care Provider Mono Huggins WOOD CARVER Unavailable Unavailable Encounter Details Date Type Department Care Team (Late st Contact Info) Description 01/11/2023 Abstract [facility] [address] [place] [address] Patricia Arreaga Social History Tobacco Use Types [...] 09/29/2019 documented in this encounter Results * Hm Colonoscopy (09/29/2019) Colonoscopy Normal Normal Narrative Patricia Arreaga - 09/29/2019 Repeat in 5 year due to history of tubular adenomas Historical Provider HEALTH MAINTENANCE Final Result documented in this encounter Visit Diagnoses Not on filedocumented in this encounter Additional Health Concerns Assessment Noted Time PHQ-9 Depression Total Score: 0 11/09/19 23 10:07 AM EDT documented as of this encounter Care Teams Grades 9 12 Tutor Relationship Specialty Start Date End Date Lilian Mcclellan FNP [address] [place] [address] PCP - General Family Medicine 04/26/22 Mono Huggins FNP [address] [place] [address] Nurse Practitioner Family Medicine 01/21/23 Maureen Gastelum Survey WorkerStaffing Operations Manager 02/11/24 documented as of this encounter
--- OUTSIDE RECORDS SUMMARY | 2024-12-11 18:25 | XMS_ITS | Encounter Summary ---
Author Organization [facility] Address [address] [place] [address] Phone Care Team Providers Care Supervisor Hardboard Name Role Phone Unavailable Primary Care Provider Unavailabl e Encounter Details Date Type Department Care Team (Late st Contact Info) Description 04/22/2019 Ancillary Orders [facility] [address] [place] [address] Shannan Yee PA [address] [place] [address] [email or web address] Social History Tobacco Use Types Packs/Day [...] is not the complete legal health record.[facility]
--- OUTSIDE RECORDS SUMMARY | 2024-12-11 18:25 | XMS_ITS | Encounter Summary ---
Author Organization [employer] Address [address] [place] [address] Care Team Providers Care Ornamental Metal Fabricator Apprentice Name Role Phone Lilian Mcclellan CLIENT EXPERIENCE CONSULTANT Primary Care Provider [phone] Mono Huggins CLIENT EXPERIENCE CONSULTANT Unavailable Unavailable Encounter Details Date Type Department Care Team (Latest Contact Info) Description 12/11/2024 Travel Social History Tobacco Use Types Packs/Day Years [...] documented as of this encounter Care Teams Ornamental Metal Fabricator Apprentice Relationship Specialty Start Date End Date Lilian Mcclellan FNP [address] [place] [address] PCP - General Family Medicine 04/26/22 Mono Huggins FNP [address] [place] [address] Nurse Practitioner Family Medicine 01/21/23 Maureen Gastelum Tube Bending Machine OperatorNurse College 02/11/24 documented as of this encounter
== END 2024-12-11 17:08 | disposition home or self-care (01) ==
PROVIDERS: Emergency Provider Emergency Medicine; PCP Registered Nurse
DX: H10.33 Unspecified acute conjunctivitis, bilateral (principal)
CPT/HCPCS: 99283; 99284

== ENCOUNTER 2025-02-08 13:22 | Outpatient (REF) | payer MEDICAID, SELFPAY ==
--- OUTSIDE RECORDS SUMMARY | 2025-02-03 15:30 | XMS_ITS | Encounter Summary ---
Author Organization [employer] Address [address] [facility] [address] 7[address] [place] [address] Care Team Providers Care Administrative Technician Name Role Phone Lilian Mcclellan DOCK GUARD Primary Care Provider [phone] Mono Huggins Unavailable Unavailable Encounter Details Date Type Department Care Team ([facility] st Contact Info) Description 02/03/2025 3:30 PM EST Office Visit [facility] [address] [place] [address] Cindy Dumas, OD [address] [place] [address] Ocular rosacea (Primary Dx) Social History Tobacco Use Types [...] AM EDT documented as of this encounter Progress Notes * Cindy Dumas, GIUSEPPE - 02/03/2025 3:30 PM EST Eye Care Progress Note Patient ID: Rita Patel is a 64 y.o. female. HPI Patient reports blurry vision OU, burning sensation, itching and discharge OU for >1 month. Patient has been using Visine, allergy drops and artificial tears without relief. Patient has not been sick or had a cold lately. Patient states that this has happened before. Last edited by Cindy Dumas, GIUSEPPE on 02/03/2025 4:12 PM. Current Medications[1] Medical History[2] Surgical History[3] Family History[4] Tobacco Use: Medium Risk (02/03/2025) Tobacco Smoking Tobacco Use: Former Smokeless Tobacco Use: Never Passive Exposure: Past Allergies[5] ROS Positive for: Eyes Negative for: Constitutional, Gastrointestinal, Neurological, Skin, Genitourinary, Musculoskeletal,HENT, Endocrine, Cardiovascular, Respiratory, Psychiatric, Allergic/Imm, Heme/Lymph Last edited by Cindy Dumas, GIUSEPPE on 02/03/2025 4:12 PM. Base Eye Exam Visual Acuity (Snellen - Linear) Right Left Dist cc 20/40+1 20/60-2 Dist ph cc 20/30-2 20/40-3 Tonometry (iCare , 3:58 PM) Right Left Pressure 13 15 Pupils Pupils APD Right PERRL None Left PERRL None Visual Brantley (Counting fingers) Left Right Full Full Extraocular Movement Right Left Full Full Neuro/Psych Oriented x3: Yes Mood/Affect: Normal Slit Lamp and Fundus Exam External Exam Right Left External Rosacea Rosacea Slit Lamp Exam Right Left Lids/Lashes (+) tyalosis of lid margins, (+) lid margins telangectasias, (+) MGD (+) tyalosis of lid margins, (+) lid margins telangectasias, (+) MGD Conjunctiva/Sclera 1+ diffuse injection 1+ diffuse injection Cornea 1+ inferior SPK 1+ inferior SPK Anterior Chamber Deep and quiet, angles open Deep and quiet, angles open Iris Flat, round Flat, round Lens 1+ NS 1+ NS Assessment and Plan Diagnoses and all orders for this visit: Ocular rosacea - 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 She is followed by [facility] and needs to re-establish care (was going to get cataract surgery but has not been recently due to insurance problems) - Recommended warm compresses and lid hygiene. Continue artificial tears. - Rx'd Tobradex 1gtt QID both eyes (OU) x 7 days. RTC for f/u in 1 week - tobramycin-dexAMETHasone (Tobradex) ophthalmic suspension; Administer 2 drops into both eyes 4 times daily for 7 days. Cindy Dumas, OD 02/03/2025, 4:16 PM Flare Worker Source: __ None __ Bilingual Staff __ Qualified Staff Marine Propulsion Technician __ Telephone Flare Worker; ID# __ Flare Worker brought by patient (family member, friend, VICE PRESIDENT FIXED INCOME, etc) __ In person band aid machine operator __ Ipad Flare Worker; ID#: Language Spoken During Exam: [1] Current Outpatient Medications Medication Sig Dispense Refill albuterol (2.5 MG/3ML) 0.083% nebulizer solution Take 3 mL (2.5 mg) by nebulization every 4 (four) hours if needed for wheezing. 90 mL 1 azelastine (Astelin) 0.1 % nasal spray Administer 1 spray into each nostril 2 times daily. Use in each nostril as directed 30 mL 3 baclofen (Lioresal) 10 MG tablet Take one tablet TID PRN 30 tablet 0 clonazePAM (KlonoPIN) 0.5 MG tablet Take 1 tablet (0.5 mg) by mouth if needed each day for anxiety.Take 1 tab orally at bedtime, and may occasionally take 1 extra tab during the day as needed for anxiety 40 tablet 0 clotrimazole (Lotrimin) 1 % cream APPLY TOPICALLY TWICE DAILY FOR 28 DAYS 30 g 2 ezetimibe (Zetia) 10 MG tablet TAKE 1 TABLET BY MOUTH AT BEDTIME 90 tablet 1 furosemide (Lasix) 20 MG tablet Take 20 mg by mouth in the morning. hydrocortisone 2.5 % cream Apply topically 2 times daily. 20 g 0 hydrOXYzine HCl (Atarax) 25 MG tablet Take one tab during the day, may take two tabs at bedtime foranxiety as needed. 90 tablet 0 ibuprofen 600 MG tablet Take 1 tablet (600 mg) by mouth every 8 (eight) hours if needed for mild pain or moderate pain for up to 10 days. 30 tablet 0 levalbuterol (Xopenex) 45 MCG/ACT inhaler INHALE 2 PUFFS BY MOUTH EVERY 6 HOURS NEEDED FOR SHORTNESS OF BREATH OR WHEEZING FOR 30 DAYS levocetirizine (Xyzal) 5 MG tablet Take 5 mg by mouth in the morning. lidocaine (Lidoderm) 5 % patch APPLY 1 PATCH TOPICALLY TO SKIN, LEAVE ON FOR 12 HOURS AND OFF FOR 12 HOURS DIRECTED 30 patch 1 losartan (Cozaar) 25 MG tablet TAKE 1 TABLET BY MOUTH DAILY LAB 1 WEEK AFTER STARTING metoprolol tartrate (Lopressor) 50 MG tablet Take 1 tablet (50 mg) by mouth 2 times daily. 60 tablet 3 minoxidil (Rogaine) 2 % external solution Apply topically 2 times daily. 60 mL 2 naphazoline-pheniramine (Naphcon-A) 0.025-0.3 % ophthalmic solution Administer 2 drops into both eyes if needed in the morning, at noon, in the evening, and at bedtime for irritation. 15 mL 0 pantoprazole (ProtoNix) 40 MG EC tablet TAKE 1 TABLET BY MOUTH TWICE DAILY IN THE MORNING AND AT BEDTIME predniSONE (Deltasone) 20 MG tablet Take 2 tablets (40 mg) by mouth Once per day for 5 days. 10 tablet 0 sucralfate (Carafate) 1 g tablet TAKE 1 TABLET BY MOUTH TWICE DAILY IN THE MORNING AND IN THE EVENING terbinafine (LamISIL) 1 % cream APPLY TO THE AFFECTED AREA(S) TOPICALLY TWICE DAILY 30 g 1 Tirzepatide-Weight Management (Zepbound) 2.5 MG/0.5ML solution auto-injector Inject 0.5 mL (2.5 mg)under the skin 1 (one) time per week. 2 mL 1 tiZANidine (Zanaflex) 4 MG capsule Take 1 capsule (4 mg) by mouth if needed in the morning, at noon, and at bedtime for muscle spasms for up to 10 days. 30 capsule 0 tobramycin-dexAMETHasone (Tobradex) ophthalmic suspension Administer 2 drops into both eyes 4 timesdaily for 7 days. 5 mL 0 Trelegy Ellipta 200-62.5-25 MCG/ACT aerosol powder Inhale 1 puff Once per day. 1 each 0 triamcinolone (Kenalog) 0.1 % ointment APPLY TOPICALLY TO THE AFFECTED AREA(S) TWICE DAILY DIRECTED FOR FOURTEEN DAYS 15 g 1 No current facility-administered medications for this visit. [2] Past Medical History: Diagnosis Date Pneumonia of right middle lobe due to infectious organism 11/05/2023 [3] Past Surgical History: Procedure Laterality Date CTA CHEST W AND WO CONTRAST 06/17/2023 CTA CHEST W AND WO CONTRAST [4] Family History Problem Relation Name Age of Onset Lymphoma Mother's Sister Colon cancer Father's Brother 50 Two brothers with CRC Lymphoma Father's Brother [5] Allergies Allergen Reactions Penicillin V Other Reaction(s): rash Penicillins Rash documented in this encounter Plan of Treatment Upcoming Encounters Date Type Department Care Team (Late st Contact Info) Description 02/09/2025 11:30 AM EST Office Visit [facility] [address] [place] [address] Cindy Dumas OD [address], [place] [id number] 03/03/2025 2:45 PM EST Office Visit [facility] [address] [place] [address] [place] [address] [address] 05/21/2025 3:15 PM EDT Office Visit [facility] [address] [place] [address] Halima Hickman MD [address] [place] [address] documented as of this encounter Visit Diagnoses Diagnosis Ocular rosacea- Primary Rosacea documented in this encounter Additional Health Concerns Assessment Noted Time PHQ-9 Depression Total Score: 0 08/25/19 25 9:53 AM EDT documented as of this encounter Care Teams Administrative Technician Relationship Specialty Start Date End Date Lilian Mcclellan FNP [address] [place] [address] PCP - General Family Medicine 04/26/22 Mono Huggins FNP [address] [place] [address] Nurse Practitioner Family Medicine 01/21/23 Maureen Gastelum Slubber Machine OperatorTank Worker 02/11/24 documented as of this encounter
--- NOTE | ~2025-02-08 | XR_ITS ---
EXAMINATION: XR CHEST CLINICAL INFORMATION: r/o PNA COMPARISON: X-ray 06/08/2024 TECHNIQUE: 2 views of the chest were obtained. FINDINGS: The cardiomediastinal silhouette is within normal limits. The lungs are well expanded. There is no focal consolidation, edema, or effusion. No pneumothorax. No acute osseous abnormality. XR/XR chest 2V IMPRESSION: No acute findings Electronically signed by: Meet Moreland MD 02/08/2025 01:43 PM EST
--- OUTSIDE RECORDS SUMMARY | 2025-02-08 11:30 | XMS_ITS | Encounter Summary ---
Author Organization [employer] Address [address] [facility] 7t [place] [address] Care Team Providers Care Warehouse Person Name Role Phone Lilian Mcclellan HEAD OF DESIGN Primary Care Provider [phone] Mono Huggins Unavailable Unavailable Reason for Visit * Reason Comments sick onsite Encounter Details Date Type Department Care Team (Late st Contact Info) Description 02/08/2025 11:30 AM EST Office Visit [facility] [address] [place] [address] Christofer Zelaya ANP 230 [place] [address] Severe persistent asthma with acute exacerbation (HCC) [...] pharmacy last fill 07/2024. Mac ARRIAGA provided Northern Irish interpretation. Review of Systems Constitutional: Positive for [...] Description 02/09/2025 11:30 AM EST Office Visit [facility] [address] [place], [place] [phone] Cindy Dumas OD 267 [place] [address] 03/03/2025 2:45 PM EST Office Visit [facility] [address] [place], [place] [phone] Lilian Mcclellan FNP 230 [place] [address] 05/21/2025 3:15 PM EDT Office Visit [facility] [address] [place], [place] [phone] Halima Hickman MD 230 [place], [place] [phone] documented as of this encounter Procedures Procedure Name Priority Date/Time Associated Diagnosis Comments XR CHEST 2 VIEWS Routine 02/08/2025 1:30 PM EST Severe persistent asthma with acute exacerbation (HCC) documented in this encounter Results * XR Chest 2 Views (02/08/2025 1:30 PM EST) Anatomical Region Laterality Modality Chest Radiographic Kenyetta ging 02/08/2025 1:30 PM EST Narrative 02/08/2025 1:47 PM EST [facility] [address] [place] [address] XRay Report Signed Patient: Rita Patel MR#: [id number] : 1960 Acct:[id number] Age/Sex: 64 / F ADM Date: 02/08/25 Loc: [facility] Attending Dr: Christofer Zelaya NP Ordering Physician: CHRISTOFER ZELAYA NP Date of Service: 02/08/25 Procedure(s): XR chest 2V Accession Number(s): [id number] cc: CHRISTOFER ZELAYA INSPECTOR METAL CAN; [facility] Reason for Exam: r/o PNA EXAMINATION: XR [...] 02/08/25 1343 DD/ 1330 TD/TT: 02/08/25 1338 Underground Mining Section Foreman: ZAK Procedure Note Shakira, Linnea - 02/08/[address] [address] XRay Report Signed Patient: Rita Patel DMR#: [id number] : 1960Acct:[id number] Age/Sex: 64 / FADM Date: 02/08/25 [facility] Dr: Christofer Zelaya NP Ordering Physician: CHRISTOFER ZELAYA NP Date of Service: 02/08/25 Procedure(s): XR chest 2V Accession Number(s): [id number] cc: CHRISTOFER ZELAYA NP; [facility] Reason for Exam: r/o PNA EXAMINATION: XR [...] by: Meet Moreland MD 02/08/2025 01:43 PM [facility] Dictated By: Meet Moreland MD Signed By: <Electronically signed by Meet Moreland MD in OV> 02/08/25 1343 DD/ 1330 TD/TT: 02/08/25 1338 Underground Mining Section Foreman: ZAK us Christofer SOSA IMG XR PROCEDURES Final Result documented in [...] Time PHQ-9 Depression Total Score: 0 08/25/19 9:53 AM EDT documented as of this encounter Care Teams Warehouse Person Relationship Specialty Start Date End Date Lilian Mcclellan FNP [address] [place] [address] PCP - General Family Medicine 04/26/22 Mono Huggins FNP [address] [place] [address] Nurse Practitioner Family Medicine 01/21/23 Maureen Gastelum Head Athletic TrainerPlate Setter 02/11/24 documented as of this encounter
--- OUTSIDE RECORDS SUMMARY | 2025-02-08 19:23 | XMS_ITS | Encounter Summary ---
Author Organization [employer] Address [address] [place] [address] 7t [place] [address] Care Team Providers Care Orchard Pruner Name Role Phone [facility] Primary Care Provider [phone] Mono Huggins Unavailable Unavailable Reason for Visit * Reason Onset Date Comments Results 08/22/2022 TB Test Encounter Details Date Type Department Care Team ([facility] st Contact Info) Description 08/22/2022 Telephone [facility] 230 [place] [address] [facility] 230 [place] [address] Results (TB Test) Social History Tobacco Use [...] - 08/23/2022 11:48 AM EDT T/C to [phone] through [employer] id - [id number] for TB test, pt. Informed that clinic does not receive result yet, clinic will call once result is available. Pt. Verbally agreed and understood. * Telephone Encounter - Anabella Reyes - 08/22/2022 1:47 PM EDT Tc from patient requesting tb test results. Patient speaks argentine documented in this encounter Plan of Treatment Upcoming Encounters Date Type Department Care Team (Late st Contact Info) Description 02/09/2025 11:30 AM EST Office Visit [facility] OPT[facility] [address] [place] [address] Cindy Dumas, OD [address] [place] [address] 03/03/2025 2:45 PM EST Office Visit [facility] [address] [place] [address] Lilian Mcclellan FNP 230 [place] [address] 05/21/2025 3:15 PM EDT Office Visit [facility] [address] [place] [address] Halima Hickman MD 230 [place] [address] documented as of this encounter Visit Diagnoses Not on filedocumented in this encounter Additional Health Concerns Assessment Noted Time PHQ-9 Depression Total Score: 3 08/10/19 23 10:21 AM EDT documented as of this encounter Care Teams Orchard Pruner Relationship Specialty Start Date End Date Lilian Mcclellan FNP [address] [place] [address] PCP - General Family Medicine 04/26/22 Mono Huggins FNP 230 [place] [address] Nurse Practitioner Family Medicine 01/21/23 Maureen Gastelum Jewelry CutterFinal Assembler Boat 02/11/24 documented as of this encounter
--- OUTSIDE RECORDS SUMMARY | 2025-02-08 19:24 | XMS_ITS | Encounter Summary ---
Author Organization [employer] Address [address] [facility] 7t [place] [address] Care Team Providers Care Teletype Mechanic Name Role Phone Lilian Mcclellan POLITICAL REPORTER Primary Care Provider [phone] Mono Huggins POLITICAL REPORTER Unavailable Unavailable Encounter Details Date Type Department Care Team (Latest Contact Info) Description 02/08/2025 Travel Social History Tobacco Use Types Packs/Day [...] t he electric, gas, oil or water [employer] threatened to shut off services in your [...] Description 02/09/2025 11:30 AM EST Office Visit [facility] OPTOMETRY [address] [place] [address] TarkaCindy, OD [address] [place] [address] 03/03/2025 2:45 PM EST Office Visit [facility] 230 [place] [address] Lilian Mcclellan FNP 230 [place] [address] 05/21/2025 3:15 PM EDT Office Visit [facility] [address] [place] [address] Halima Hickman MD [address] [place] [address] documented as of this encounter Visit Diagnoses Not on filedocumented in this encounter Additional Health Concerns Assessment Noted Time PHQ-9 Depression Total Score: 0 08/25/19 25 9:53 AM EDT documented as of this encounter Care Teams Teletype Mechanic Relationship Specialty Start Date End Date Lilian Mcclellan FNP [address] [place] [address] PCP - General Family Medicine 04/26/22 Mono Huggins FNP 230 [place] [address] Nurse Practitioner Family Medicine 01/21/23 Maureen Gastelum Photo ColorerCar Seat Maker 02/11/24 documented as of this encounter
--- OUTSIDE RECORDS SUMMARY | 2025-02-08 19:24 | XMS_ITS | Encounter Summary ---
Author Organization [employer] Address [address] [facility] 7t [place] [address] Care Team Providers Care District Court Judge Name Role Phone [place] [facility] Primary Care Provider Mono Huggins THREAD DRESSER Unavailable Unavailable Reason for Visit * Reason Comments Med Refill Encounter Details Date Type Department Care Team (Late st Contact Info) Description 05/12/2024 Refill [facility] MED[facility]INE [address] [place] [address] [facility] 230 [place] [address] Class 3 severe obesity due to excess [...] Description 02/09/2025 11:30 AM EST Office Visit [facility] OPTOMETRY [address] [place] [address] Cindy Dumas, OD 267 [place] [address] 03/03/2025 2:45 PM EST Office Visit [facility] MEDICINE [address] [place] [address] [facility] 230 [place] [address] 05/21/2025 3:15 PM EDT Office Visit [facility] MED[facility]INE [address] [place] [address] Halima Hickman MD [address] [place] [address] documented as of this encounter Visit Diagnoses Diagnosis Class 3 severe obesity due to excess calories with serious comorbidity and body mass index (BMI) of 40.0 to 44.9 in adult (HCC) documented in this encounter Additional Health Concerns Assessment Noted Time PHQ-9 Depression Total Score: 0 01/15/20 11:36 AM EST documented as of this encounter Care Teams District Court Judge Relationship Specialty Start Date End Date Lilian Mcclellan FNP 230 [place] [address] PCP - General Family Medicine 04/26/22 Mono Huggins FNP 230 [place] [address] Nurse Practitioner Family Medicine 01/21/23 Maureen Gastelum [employer] SalesService Director 02/11/24 documented as of this encounter
--- OUTSIDE RECORDS SUMMARY | 2025-02-08 19:24 | XMS_ITS | Encounter Summary ---
Author Organization [employer] Address [address] [facility] 7t [place] [address] Care Team Providers Care Ultrasonographer Name Role Phone Lilian Mcclellan MEDICAL RESIDENT Primary Care Provider [phone] Mono Huggins Unavailable Unavailable Reason for Referral * Consultation (Routine) - Closed Specialty Diagnoses / Procedures Referred By Contac t Referred To Contact Pharmacy Diagnoses Diastolic dysfunction without heart failure Sun King MD 230 [place] [address] Phone: tel: fax: Referral ID Status Reason Start Date Expiration Date V isits Requested Visits Authorized [id number] Closed Continuity of Care 03/17/2024 03/17/2025 6 6 Encounter Details Date Type Department Care Team (Late st Contact Info) Description 03/17/2024 Orders Only [facility] 230 [place], [place] [phone] Sun King MD 230 [place], [place] [phone] Diastolic dysfunction without heart failure (Primary Dx) [...] Description 02/09/2025 11:30 AM EST Office Visit [facility] OPTOM[facility] [address] [place] [address] Cindy Dumas, OD 267 [place] [address] 03/03/2025 2:45 PM EST Office Visit [facility] 230 [place] [address] [place], Lilian, [facility] 230 [place] [address] 05/21/2025 3:15 PM EDT Office Visit [facility] [address] [place] [address] Halima Hickman MD 230 [place] [address] Scheduled Referrals Name Type Priority Associated Diagnoses [...] documented as of this encounter Care Teams Ultrasonographer Relationship Specialty Start Date End Date Lilian Mcclellan FNP [address] [place] [address] PCP - General Family Medicine 04/26/22 Mono Huggins FNP [address] [place] [address] Nurse Practitioner Family Medicine 01/21/23 Maureen Gastelum Manager Of InvestigationsCarbide Die Maker 02/11/24 documented as of this encounter
--- OUTSIDE RECORDS SUMMARY | 2025-02-08 19:24 | XMS_ITS | Encounter Summary ---
Author Organization [facility] Address [address] [place] [address] Phone Care Team Providers Care Bicycle Inspector Name Role Phone Unavailable Primary Care Provider Unavailabl e Encounter Details Date Type Department Care Team (Late st Contact Info) Description 04/22/2019 Ancillary Orders [facility] [address] [place] [address] Shannan Yee PA [address] [place] [address] [email or web address] Social History Tobacco Use Types Packs/Day [...] is not the complete legal health record.[facility]
--- OUTSIDE RECORDS SUMMARY | 2025-02-08 19:24 | XMS_ITS | Clinical Summary ---
Author Organization [facility] Address [address] [place] [address] [place] [address] Phone Care Team Providers Care Custom Feed Mill Operator Name Role Phone Unavailable Primary Care Provider [...] file Medical Devices Not on file Insurance [facility] [address] [place] [address] C3 ACO C3 ACO C3 ACO C3 ACO C3 ACO C3 ACO C3 ACO [facility] C3 ACO Additional Source Comments The information contained in this document represents components of the legal health record. It is not the complete legal health record.[facility]
--- OUTSIDE RECORDS SUMMARY | 2025-02-08 19:24 | XMS_ITS | Encounter Summary ---
Author Organization [employer] Address [address] [facility] 7t [place] [address] Care Team Providers Care Assistant Golf Professional Name Role Phone Lilian Mcclellan KNOCKER OUT Primary Care Provider [phone] Mono Huggins Unavailable Unavailable Encounter Details Date Type Department Care Team ([facility] st Contact Info) Description 02/08/2025 Telephone [facility] 230 [place] [address] Jaqueline Parikh, ANP 230 [place] [address] Social History Tobacco Use Types Packs/Day Years [...] Description 02/09/2025 11:30 AM EST Office Visit [facility] OPT[facility] 267 [place] [address] Cindy Dumas, OD 267 [place] [address] 03/03/2025 2:45 PM EST Office Visit [facility] [address] [place] [address] Lilian Mcclellan FNP 230 [place] [address] 05/21/2025 3:15 PM EDT Office Visit [facility] [address] [place] [address] Halima Hickman MD 230 [place] [address] documented as of this encounter Visit Diagnoses Not on filedocumented in this encounter Additional Health Concerns Assessment Noted Time PHQ-9 Depression Total Score: 0 08/25/19 25 9:53 AM EDT documented as of this encounter Care Teams Assistant Golf Professional Relationship Specialty Start Date End Date Lilian Mcclellan FNP 230 [place] [address] PCP - General Family Medicine 04/26/22 Mono Huggins FNP [address] [place] [address] Nurse Practitioner Family Medicine 01/21/23 Maureen Gastelum Academic Advisement DirectorTreasury Associate 02/11/24 documented as of this encounter
--- OUTSIDE RECORDS SUMMARY | 2025-02-08 19:24 | XMS_ITS | Clinical Summary ---
Author Organization [address] Address [address] [place] [address] Care Team Providers Care Lbd Teacher Name Role Phone Halima Hickman MD Primary [...] - 30 mmol/L 10/13/2017 4:37 PM EDT [facility] Anion Gap 11 7 - 17 [facility] Glucose 142(H) 70 - 100 mg/dL 10/13/2017 4:37 PM EDT [facility] BUN 10 8 - 18 mg/dL 10/13/2017 4:37 PM EDT [facility] Creatinine 0.90 0.40 - 1.30 mg/dL 10/13/2017 4:37 PM EDT [facility] Calcium 8.8 8.8 - 10.2 mg/dL 10/13/2017 4:37 PM EDT [facility] BUN/Creatinine Ratio 11.1 8.0 - [...] Final Resu lt [facility] [address] [place] [address], [facility] [phone] from Last 3 Months or Most Recently Relevant to Health Maintenance Insurance [id number] MEDICAID [id number] MEDICAID [id number] MEDICAID Care Teams Lbd Teacher Relationship Specialty Start Date End Date Halima Hickman MD PCP - General 10/13/17
--- OUTSIDE RECORDS SUMMARY | 2025-02-08 19:24 | XMS_ITS | Encounter Summary ---
Author Organization [employer] Address [address] [facility] 7t [place] [address] Care Team Providers Care Finished Cigar Maker Name Role Phone Lilian Mcclellan STAINED GLASS GLAZIER Primary Care Provider [phone] Mono Huggins STAINED GLASS GLAZIER Unavailable Unavailable Encounter Details Date Type Department Care Team (Latest Contact Info) Description 02/03/2025 Travel Social History Tobacco Use Types Packs/Day [...] t he electric, gas, oil or water [employer] threatened to shut off services in your [...] Description 02/09/2025 11:30 AM EST Office Visit [facility] OPTOMETRY [address] [place] [address] TarkaCindy, OD 267 [place] [address] 03/03/2025 2:45 PM EST Office Visit [facility] MEDICINE 230 [place] [address] Lilian Mcclellan FNP 230 [place] [address] 05/21/2025 3:15 PM EDT Office Visit [facility] MED[facility] [address] [place] [address] Halima Hickman MD [address] [place] [address] documented as of this encounter Visit Diagnoses Not on filedocumented in this encounter Additional Health Concerns Assessment Noted Time PHQ-9 Depression Total Score: 0 08/25/19 25 9:53 AM EDT documented as of this encounter Care Teams Finished Cigar Maker Relationship Specialty Start Date End Date Lilian Mcclellan FNP [address] [place] [address] PCP - General Family Medicine 04/26/22 Mono Huggins FNP 230 [place] [address] Nurse Practitioner Family Medicine 01/21/23 Maureen Gastelum Customer Service TrainerProduction Engine Repairer 02/11/24 documented as of this encounter
--- OUTSIDE RECORDS SUMMARY | 2025-02-08 19:24 | XMS_ITS | Encounter Summary ---
Author Organization [employer] Address [address] [facility] 7t [place] [address] Care Team Providers Care Steam Presser Name Role Phone Lilian Mcclellan LATEXER Primary Care Provider [phone] Mono Huggins Unavailable Unavailable Encounter Details Date Type Department Care Team ([facility] Contact Info) Description 02/08/2025 Results Follow-Up [facility] MEDICINE 230 [place] [address] Jaqueline Parikh ANP 230 [place] [address] XR Chest 2 Views Social History Tobacco Use Types Packs/Day Years [...] as of this encounter Miscellaneous Notes * Result Encounter Note - SHEILA Max - 02/08/2025 4:36 PM EST No pneumonia, recommend continue antibiotics and prednisone as Rx'd today documented in this encounter Plan of Treatment Upcoming Encounters Date Type Department Care Team (Late st Contact Info) Description 02/09/2025 11:30 AM EST Office Visit [facility] OPTOMETRY [address] [place] [address] Cindy Dumas, OD 267 [place] [address] 03/03/2025 2:45 PM EST Office Visit [facility] MEDICINE [address] [place] [address] PaceLilian, [facility] 230 [place] [address] 05/21/2025 3:15 PM EDT Office Visit [facility] MEDICINE [address] [place] [address] Halima Hickman MD 230 [place] [address] documented as of this encounter Visit Diagnoses Not on filedocumented in this encounter Additional Health Concerns Assessment Noted Time PHQ-9 Depression Total Score: 0 08/25/19 25 9:53 AM EDT documented as of this encounter Care Teams Steam Presser Relationship Specialty Start Date End Date Lilian Mcclellan FNP 230 [place] [address] PCP - General Family Medicine 04/26/22 Mono Huggins FNP 230 [place] [address] Nurse Practitioner Family Medicine 01/21/23 Maureen Gastelum High Density Press LaborerJunior Software Developer 02/11/24 documented as of this encounter
--- OUTSIDE RECORDS SUMMARY | 2025-02-08 19:24 | XMS_ITS | Encounter Summary ---
Author Organization [facility] Address [address] [place] [address] Phone Care Team Providers Care Director Decision Support Name Role Phone Unavailable Primary Care Provider Unavailabl e Encounter Details Date Type Department Care Team (Late st Contact Info) Description 02/13/2019 Ancillary Orders [facility] [address] [place] [address] Shannan Yee PA [address] [place] [address] [email or web address] Social History Tobacco Use Types Packs/Day [...] It is not the complete legal health record.[facility]
--- OUTSIDE RECORDS SUMMARY | 2025-02-08 19:24 | XMS_ITS | Encounter Summary ---
Author Organization [employer] Address [address] [facility] [address] 7t [place] [address] Care Team Providers Care Chief Cloth Finishing Range Operator Name Role Phone Lilian Mcclellan DIRECTOR OF COMMUNITY CENTER Primary Care Provider [phone] Mono Huggins DIRECTOR OF COMMUNITY CENTER Unavailable Unavailable Encounter Details Date Type Department Care Team (Late st Contact Info) Description 01/11/2023 Abstract [facility] MEDICINE 230 [place] [address] Patricia Arreaga Social History Tobacco Use Types [...] Description 02/09/2025 11:30 AM EST Office Visit [facility] OPTOMETRY [address] [place] [address] TarCindy salomon, OD 267 [place] [address] 03/03/2025 2:45 PM EST Office Visit [facility] 230 [place] [address] [place], Lilian, DIRECTOR OF COMMUNITY CENTER 230 [place] [address] 05/21/2025 3:15 PM EDT Office Visit [facility] [address] [place] [address] Halima Hickman MD 230 [place] [address] documented as of this encounter Procedures Procedure [...] documented as of this encounter Care Teams Chief Cloth Finishing Range Operator Relationship Specialty Start Date End Date Lilian Mcclellan FNP 230 [place] [address] PCP - General Family Medicine 04/26/22 Mono Huggins FNP [address] [place] [address] Nurse Practitioner Family Medicine 01/21/23 Maureen Gastelum Automobile Taillight AssemblerBaggage Inspector 02/11/24 documented as of this encounter
--- OUTSIDE RECORDS SUMMARY | 2025-02-08 19:24 | XMS_ITS | Encounter Summary ---
Author Organization [employer] Address [address] [facility] 7t [place] [address] Care Team Providers Care Summer Camp Counselor Name Role Phone [facility] Primary Care Provider [phone] Mono Huggins [facility] Unavailable Unavailable Reason for Visit * Reason Comments Med Refill Encounter Details Date Type Department Care Team (Late st Contact Info) Description 02/05/2025 Refill [facility] MEDICINE 230 [place] [address] [facility] 230 [place] [address] Restrictive lung disease Social History Tobacco Use Types Packs/Day Years [...] 11:30 AM EST Office Visit [facility] OPTOMETRY [address] [place] [address] Cindy Dumas, OD 267 [place] [address] 03/03/2025 2:45 PM EST Office Visit [facility] MEDICINE [address] [place] [address] [facility], [facility] 230 [place] [address] 05/21/2025 3:15 PM EDT Office Visit [facility] MEDICINE [address] [place] [address] Halima Hickman MD [address] [place] [address] documented as of this encounter Visit Diagnoses Diagnosis Restrictive lung disease Other diseases of lung, not elsewhere classified documented in this encounter Additional Health Concerns Assessment Noted Time PHQ-9 Depression Total Score: 0 08/25/19 25 9:53 AM EDT documented as of this encounter Care Teams Summer Camp Counselor Relationship Specialty Start Date End Date Lilian Mcclellan FNP 230 [place] [address] PCP - General Family Medicine 04/26/22 Mono Huggnis FNP 230 [place] [address] Nurse Practitioner Family Medicine 01/21/23 Maureen Gastelum Cherry PitterShopfitter 02/11/24 documented as of this encounter
--- OUTSIDE RECORDS SUMMARY | 2025-02-08 19:24 | XMS_ITS | Encounter Summary ---
Author Organization [employer] Address [address] [facility] [address] [place] [address] Care Team Providers Care River Captain Name Role Phone Gal[facility] Primary Care Provider [phone] Mono Huggins Unavailable Unavailable Reason for Visit * Reason Onset Date Comments asthma status check 02/08/2025 Encounter Details Date Type Department Care Team ([facility] st Contact Info) Description 02/08/2025 Telephone [facility] MEDICINE [address] [place] [address] Galva [facility] [address] [place] [address] asthma status check Social History Tobacco Use Types Packs/Day Years [...] Telephone Encounter - Haven Joseph RN - 02/08/2025 10:26 AM EST TC placed to patient [phone] in regards to below message. Patient reports she was able to schedule a f/u appointment on 02/16/25 at 3:30PM with pulmonology. Patient reports she was able to p/u prednisone and albuterol solution for nebulizer however was unable to obtain Trelegy (requires PA-MAIRANNE c onfirmed with [facility] pharmacy). Patient reports she has completed prednisone and has been using albuterol nebulizer solution q4-6 hours as per POC in OV note on 02/01/25. Patient with audible SOB with longer sentences and coughing. Patient reports no improvement of s/s from 02/01/25 visit. RN scheduled patient for re- evaluation today at 11:30AM. Patient agreed to appointment date and time. Sending to PCP to advise of PA needed for Trelegy-patient will be re-evaluated today. ----- Message from [facility] sent at 02/07/2025 8:50 PM EST ----- Please contact patient for status check regarding asthma exacerbation--she has severe persistent asthma and due to insurance lapse she did not have her inhlaers. Please confirm she was able to get them and has reached out to pulmonology to schedule follow up. Thank you! documented in this encounter Plan of Treatment Upcoming Encounters Date Type Department Care Team (Late st Contact Info) Description 02/09/2025 11:30 AM EST Office Visit [facility] OPTOMETRY [address] [place] [address] Tarumm Cindy, OD [address] [place] [address] 03/03/2025 2:45 PM EST Office Visit [facility] MEDICINE [address] [place] [address] Lilian Mcclellan FNP [address] [place] [address] 05/21/2025 3:15 PM EDT Office Visit [facility] MEDICINE [address] [place] [address] Halima Hickman MD [address] [place] [address] documented as of this encounter Visit Diagnoses Not on filedocumented in this encounter Additional Health Concerns Assessment Noted Time PHQ-9 Depression Total Score: 0 08/25/19 25 9:53 AM EDT documented as of this encounter Care Teams River Captain Relationship Specialty Start Date End Date Lilian Mcclellan FNP [address] [place] [id number] PCP - General Family Medicine 04/26/22 Mono Huggins FNP [address] [place] [id number] Nurse Practitioner Family Medicine 01/21/23 Maureen Gastelum Emergency Services DirectorTheoretical Physics Teacher 02/11/24 documented as of this encounter
--- OUTSIDE RECORDS SUMMARY | 2025-02-08 19:24 | XMS_ITS | Clinical Summary ---
Author Organization [employer] Address [address] [place] [address] 7t [place] [address] Care Team Providers Care Automotive Center Manager Name Role Phone Lilian Mcclellan SENIOR BUSINESS BROKER Primary Care Provider [phone] Mono Huggins SENIOR BUSINESS BROKER Unavailable Unavailable Allergies Active Allergy Reactions Criticality Noted Date Comments Gramineae Pollens Itching Medium 10/01/2023 Peanut-Containing Drug Products Rash Medium 10/01/2023 Penicillin V 12/03/1997 Other Reaction(s): rash Penicillins Rash Low 03/21/2022 [place] Pulp Swelling Medium 10/01/2023 [place] skin only Medications * This document contains information received from the source organization and may not represent a complete record from that organization. levalbuterol (Xopenex) 45 MCG/ACT inhaler INHALE 2 PUFFS BY MOUTH EVERY 6 HOURS NEEDED FOR SHORTNESS OF BREATH OR WHEEZING FOR 30 DAYS 023 Active furosemide (Lasix) 20 MG tablet [...] tablet TID PRN 30 tablet 024 Active lidocaine (Lidoderm) 5 % patchIndications: Chronic right shoulder pain APPLY 1 PATCH TOPICALLY TO SKIN, LEAVE ON FOR 12 HOURS AND OFF FOR 12 HOURS DIRECTED 30 patch 1 024 Active clotrimazole (Lotrimin) 1 % creamIndications: Groin rash APPLY TOPICALLY TWICE DAILY FOR 28 DAYS 30 g 2 025 Active naphazoline-pheni ramine (Naphcon-A) 0.025-0.3 % ophthalmic solutionIndicatio ns:Viral conjunctivitis Administer 2 drops into both eyes if needed in the morning, at noon, in the evening, and at bedtime for irritation. 15 mL 025 Active losartan (Cozaar) 25 MG tablet TAKE 1 TABLET BY MOUTH DAILY LAB 1 WEEK AFTER STARTING 025 Active triamcinolone (Kenalog) 0.1 % ointmentIndicatio ns:Groin rash APPLY TOPICALLY TO THE AFFECTED AREA(S) TWICE DAILY DIRECTED FOR FOURTEEN DAYS 15 g 1 025 Active metoprolol tartrate (Lopressor) 50 MG tabletIndications :Palpitations Take 1 tablet (50 mg) by mouth 2 times daily. 60 tablet 3 025 Active ezetimibe (Zetia) 10 MG tablet TAKE 1 TABLET BY MOUTH AT BEDTIME 90 tablet 1 025 Active ibuprofen 600 MG tablet Take 1 tablet (600 mg) by mouth every 8 (eight) hours if needed for mild pain or moderate pain for up to 10 days. 30 tablet 02/02/20 25 5:56 PM EST 025 2024 Active tiZANidine (Zanaflex) 4 MG capsule Take 1 capsule (4 mg) by mouth if needed in the morning, at noon, and at bedtime for muscle spasms for up to 10 days. 30 capsule Active Tirzepatide-Weigh t Management (Zepbound) 2.5 MG/0.5ML solution auto-injectorIndi cations:Class 3 severe obesity due to excess calories with serious comorbidity and body mass index (BMI) of 40.0 to 44.9 in adult (HCC) Inject 0.5 mL (2.5 mg) under the skin 1 (one) time per week. 2 mL 1 Active clonazePAM (KlonoPIN) 0.5 MG tabletIndications :Anxiety Take 1 tablet (0.5 mg) by mouth if needed each day for anxiety. Take 1 tab orally at bedtime, and may occasionally take 1 extra tab during the day as needed for anxiety 40 tablet 02/02/20 5:56 PM EST 2025 Active hydrOXYzine HCl (Atarax) 25 MG tabletIndications :Anxiety Take one tab during the day, may take two tabs at bedtime for anxiety as needed. 90 tablet 02/09/20 2:10 PM EST Active Trelegy Ellipta 200-62.5-25 MCG/ACT aerosol powderIndications :Severe persistent asthma with acute exacerbation (HCC) Inhale 1 puff Once per day. 1 each Active tobramycin-dexAME THasone (Tobradex) ophthalmic suspensionIndicat ions:Ocular rosacea Administer 2 drops into both eyes 4 times daily for 7 days. 5 mL 02/06/20 25 2:50 PM EST 2024 Active azithromycin (Zithromax) 250 MG tabletIndications :Severe persistent asthma with acute exacerbation (HCC) Take 2 tablets (500 mg) by mouth Once per day for 1 day, THEN 1 tablet (250 mg) Once per day for 4 days. 6 tablet 02/09/20 25 2:10 PM EST 2024 Active albuterol (2.5 MG/3ML) 0.083% nebulizer solutionIndicatio ns:Severe persistent asthma with acute exacerbation (HCC) Take 3 mL (2.5 mg) by nebulization every 4 (four) hours if needed for wheezing. 90 mL 1 Active predniSONE (Deltasone) 20 MG tabletIndications :Severe persistent asthma with acute exacerbation (HCC) Take 3 tablets (60 mg) by mouth Once daily for 3 days, THEN 2 tablets (40 mg) Once daily for 3 days, THEN 1 tablet (20 mg) Once daily for 3 days, THEN 0.5 tablets (10 mg) Once daily for 4 days. 20 tablet 02/09/20 25 2:10 PM EST 025 2024 Active levocetirizine (Xyzal) 5 MG tabletIndications :Severe persistent asthma with acute exacerbation (HCC) Take 1 tablet (5 mg) by mouth Once per day. 90 tablet Active benzonatate (Tessalon) 200 MG capsule Take 1 capsule (200 mg) by mouth if needed in the morning, at noon, and at bedtime for cough for up to 7 days. Do not crush or chew. 20 capsule 02/09/20 25 2:10 PM EST 2024 Active levocetirizine (Xyzal) 5 MG tablet Take 5 mg by mouth in the morning. 023 2024 Discontinued(R eorder (will not trigger notification to Pharmacy)) Incruse Ellipta 62.5 MCG/ACT aerosol powderIndications :Severe persistent asthma without complication (HCC) INHALE 1 PUFF EVERY DAY AT THE SAME TIME 30 each 11 024 2024 Discontinued hydrOXYzine HCl (Atarax) 25 MG tabletIndications :Anxiety Take one tab during the day, may take two tabs at bedtime for anxiety as needed. 90 tablet 025 2024 Discontinued(R eorder (will not trigger notification to Pharmacy)) clonazePAM (KlonoPIN) 0.5 MG tabletIndications :Anxiety Take 1 tablet (0.5 mg) by mouth if needed each day for anxiety. Take 1 tab orally at bedtime, and may occasionally take 1 extra tab during the day as needed for anxiety 40 tablet 025 2024 Discontinued(R eorder (will not trigger notification to Pharmacy)) Tirzepatide-Weigh t Management (Zepbound) 10 MG/0.5ML solution auto-injectorIndi cations:Obesity, unspecified class, unspecified obesity type, unspecified whether serious comorbidity present Inject 0.5 mL (10 mg) under the skin every 7 (seven) days. 2 mL 025 2024 Discontinued albuterol (2.5 MG/3ML) 0.083% nebulizer solutionIndicatio ns:Restrictive lung disease INHALE 1 AMPULE USING A NEBULIZER EVERY 4 HOURS NEEDED FOR WHEEZING OR SHORTNESS OF BREATH 90 mL 1 025 2024 Discontinued(R eorder (will not trigger notification to Pharmacy)) predniSONE (Deltasone) 20 MG tabletIndications :Severe persistent asthma with acute exacerbation (HCC) Take 2 tablets (40 mg) by mouth Once per day for 5 days. 10 tablet 02/02/20 25 5:56 PM EST 2024 Discontinued(T herapy completed) albuterol (2.5 MG/3ML) 0.083% nebulizer solutionIndicatio ns:Severe persistent asthma with acute exacerbation (HCC) Take 3 mL (2.5 mg) by nebulization every 4 (four) hours if needed for wheezing. 90 mL 1 02/02/20 25 5:56 PM EST 025 2024 Discontinued(R eorder (will not trigger notification to Pharmacy)) Trelegy Ellipta 200-62.5-25 MCG/ACT aerosol powder Inhale 1 puff Once per day. 025 2024 Discontinued(R eorder (will not trigger notification to Pharmacy)) Hospital, Clinic, or Other Facility Administered Medication Ordered Dose Route Frequency Start Date End Date Status ipratropium-albutero l (Duo-Neb) 0.5-2.5 mg/3 mL nebulizer solution 3 mLIndications:Severe persistent asthma with acute exacerbation (HCC) 3 mL NEBULIZATION Once 02/08/2025 02/08/2025 Ende d Active Problems Problem Noted Date Diagnosed Date Ocular rosacea 02/07/2025 Routine adult health maintenance 10/28/2024 Assessment & Plan (11/18/2024 9:43 AM EDT): Sciatica of left side 10/28/2024 Assessment & Plan (11/18/2024 9:43 AM EDT): Skin lesion 10/28/2024 Assessment & Plan (11/18/2024 9:43 AM EDT): Orders: Referral to [facility] Derm Skin Adult; Future Sleep apnea [...] albuterol for asthma. RTC prn Pulmonary hypertension ([facility]) 07/16/2023 Assessment & Plan (11/05/2023 11:21 AM [...] Has upcoming appt. Pap: Followed by [facility], Dr. Irizarry C-scope: 2019, repeat 5 years BMD: Routine age 67 LDCT done 08/24/22 was Lung RADS 2 - plan is for yearly LDCT HCV Screen: Neg 05/2022 HIV Screen: Neg 05/2022 Screening Labs: A1c 5.6 05/2022 Severe persistent asthma 05/09/2022 Overview (06/12/2022): Followed by [facility] Severe allergic asthma Incruse Ellipta Levalbuterol [...] any questions or concerns, she should call [facility] BH Department and/or PCP. I have [...] be retiring in approx 1 year, but [facility] should have new provider in place [...] Palpitations 10/15/2017 Overview (06/12/2022): Followed by [facility] Metoprolol XR 25mg daily Assessment & Plan (11/18/2022 4:26 PM EDT): - No current sx during office visit - 2020 echo with normal EF. Mild elevation in LV filling pressure. -2017 security monitor with PACs and atrial tachycardia - Will submit referral to [facility] cardiology per patient request - Continue daily metoprolol Obesity 04/09/2017 Knee pain 12/04/2016 Keratosis 05/11/2016 Seborrheic keratosis 05/11/2016 Gastroesophageal reflux disease 06/06/2015 Overview (05/09/2022): Followed by [facility] Shoulder pain 06/06/2015 Chronic pain 06/06/2015 [...] organization. Date Type Department Care Team Description 02/08/2025 11:30 AM EST [facility] [address] [facility] [place] [address] Christofer Zelaya ANP Severe persistent asthma with acute exacerbation (HCC) (Primary Dx) 02/08/2025 Results Follow-Up [facility] [address] [facility] [place] [address] Christofer Zelaya ANP XR Chest 2 Views 02/08/2025 Telephone [facility] [address] [facility] [place] [address] Christofer Zelaya ANP 02/08/2025 Travel 02/08/2025 Telephone [facility] [address] [place] [address] Lilian Mcclellan FNP asthma status check 02/05/2025 Refill [facility] [address] [place] [address] Lilian Mcclellan FNP Restrictive lung disease 02/03/2025 3:30 PM EST Office Visit [facility] [address] [place] [address] Tarka, Cindy, OD Ocular rosacea (Primary Dx) 02/03/2025 Travel 02/01/2025 3:15 PM EST Office Visit [facility] [address] [facility] [place] [address] Lilian Mcclellan FNP Severe persistent asthma with acute exacerbation (HCC) (Primary Dx); Viral upper respiratory illness; Class 3 severe obesity due to excess calories with serious comorbidity and body mass index (BMI) of 40.0 to 44.9 in adult (HCC); Anxiety; Ocular rosacea 02/01/2025 Travel 01/29/2025 3:45 PM EST Office Visit [facility] [address] [place] [address] Halima Hickman MD Inflamed skin tag 01/29/2025 Travel 01/28/2025 Telephone [facility] [address] [place] [address] Lilian Mcclellan FNP Referral 01/20/2025 Telephone [facility] [address] [place] [address] Lilian Mcclellan FNP chart prep 12/11/2024 Travel 12/11/2024 Telephone [facility] [address] [place], [place] [phone] Lilian Mcclellan FNP Nurse Triage from Last 3 Months Immunizations Immunization Administration [...] Mass Index 41.2 02/08/2025 11:49 AM EST Plan of Treatment Upcoming Encounters Date Type Department Care Team (Late st Contact Info) Description 02/09/2025 11:30 AM EST Office Visit [facility] [address] [place] [address] Cindy Dumas, OD [address] [place] [address] 03/03/2025 2:45 PM EST Office Visit [facility] [address] [place] [address] [employer] BaseLilian, SENIOR BUSINESS BROKER [address] [place] [address] 05/21/2025 3:15 PM EDT Office Visit [facility] [address] [place] [address] Halima Hickman MD [address] [place] [address] Health Maintenance Due Date Last Done Comments CT Colonography 1962 FIT DNA/Cologuard 1962 FIT 1962 FOBT 1960 Sigmoidoscopy 1962 Pap Smear 08/28/1983 RSV Patients and Patients Aged 60 years or older (1 - Risk 50-74 years 1-dose series) 2012 Zoster Vaccines (1 of 2) 2012 Hepatitis B Vaccines (1 of 3 - Risk 3-dose series) 2022 Mammogram 02/20/2023 02/20/2021, 01/26, 03/19/2020, Additional history exists Colonoscopy 09/28/2024 09/29/2019 Colorectal Cancer Screening 09/28/2024 COVID-19 Vaccine ( season) 2024 05/11/2020 Influenza Vaccine (#1) 2024 9, 12/25/2016, 01/13/2016, Additional history exists SDOH Screening 08/17/2025 08/17/2024 Depression Screening 08/24/2025 08/24/2024, 08/25/19 25 Disability Screening 08/24/2025 08/24/2024 Alcohol/Substance Use Screening 10/28/2025 10/28/2024 Cervical Cancer Screening 12/28/2025 HPV/Cotest 12/28/2025 12/28/2020, 12/28/2020 Tobacco Screening 02/08/2026 02/08/2025 Lipid Panel 06/01/2027 05/31/2022, 11/26, 03/29/2021, Additional [...] Severe persistent asthma with acute exacerbation (HCC) POCT INFLUENZA A (ID NOW RAPID MOLECULAR) Routine 02/01/2025 4:57 PM EST Viral upper respiratory illness POCT INFLUENZA B (ID NOW RAPID MOLECULAR) Routine 02/01/2025 4:57 PM EST Viral upper respiratory illness POCT RAPID COVID ANTIGEN Routine 02/01/2025 4:57 PM EST Viral upper respiratory illness HEPATITIS C AB W/REFL TO HCV RNA, [...] Recently Relevant to Health Maintenance Results * XR Chest 2 Views (02/08/2025 1:30 PM EST) Anatomical Region Laterality Modality Chest Radiographic Kenyetta ging 02/08/2025 1:30 PM EST Narrative 02/08/2025 1:47 PM EST [address] [address] XRay Report Signed Patient: Rita Patel MR#: [id number] : 1960 Acct:[id number] Age/Sex: 64 / F ADM Date: 02/08/25 Loc: PIPE Attending Dr: Christofer Zelaya NP Ordering Physician: CHRISTOFER ZELAYA NP Date of Service: 02/08/25 Procedure(s): XR chest 2V Accession Number(s): [id number] cc: CHRISTOFER ZELAYA NP; [facility] Reason for Exam: r/o PNA EXAMINATION: [...] Meet Moreland MD 02/08/2025 01:43 PM EST Dictated By: Meet Moreland MD Signed By: <Electronically signed by Meet Moreland MD in OV> 02/08/25 1343 DD/ 1330 TD/TT: 02/08/25 1338 Habilitation Worker: Procedure Note Donotuseinterpreter, Image - 02/08/[address] [address] XRay Report Signed Patient: Rita Patel DMR#: [id number] : 1960Acct:[id number] Age/Sex: 64 / FADM Date: 02/08/25 Loc: HO.HHCX Attending Dr: Chirstofer Zelaya CITY ADMINISTRATOR Ordering Physician: CHRISTOFER ZELAYA NP Date of Service: 02/08/25 Procedure(s): XR chest 2V Accession Number(s): [id number] cc: CHRISTOFER ZELAYA CITY ADMINISTRATOR; [facility] Reason for Exam: r/o PNA EXAMINATION: [...] Meet Moreland MD 02/08/2025 01:43 PM EST Dictated By: Meet Moreland MD Signed By: <Electronically signed by Meet Moreland MD in OV> 02/08/25 1343 DD/ 1330 TD/TT: 02/08/25 1338 Habilitation Worker: ZAK Christofer Zelaya ANP IMG XR PROCEDURES Final Result * POCT Rapid Influenza B REEDER ID NOW (02/01/2025 4:57 PM EST) [facility] Influenza B Negative Negative, Indeterminate [facility] Swab 02/01/2025 4:57 PM EST Result [facility] SENIOR BUSINESS BROKER POINT OF CARE TEST ENTER/EDIT ORDERABLES Final Result [facility] [address] [place] [phone] * POCT Rapid Influenza A REEDER ID NOW (02/01/2025 4:57 PM EST) [facility] Influenza A Negative Negative, Indeterminate [facility] Swab 02/01/2025 4:57 PM EST [facility] SENIOR BUSINESS BROKER POINT OF CARE TEST ENTER/EDIT ORDERABLES Final Result Performing Organization Address City/[facility]/ZIP Co de Phone Number [facility] [address] [place] [address] [phone] * POCT Rapid Covid-19 BinaxNOW (02/01/2025 4:57 PM EST) Rapid COVID Ag Negative [facility] Swab 02/01/2025 4:57 PM EST [facility] SENIOR BUSINESS BROKER POINT OF CARE TEST ENTER/EDIT ORDERABLES Final Result Performing Organization Address [facility] Co de Phone Number [facility] [address] [place] [address] [phone] * Hepatitis C Antibody with Reflex to HCV, RNA, Quantitative, Real-Time PCR (05/31/2022 8:50 AM EDT) Hepatitis C Antibody NON-REACT JAE NON-REACT JAE [facility] Index 0.02 <1.00 [facility] Comment: HCV antibody was non-reactive. There is no laboratory evidence of HCV infection. In most cases, no further action is required. However, if recent HCV exposure is suspected, a test for HCV RNA (test code 93574) is suggested. For additional information please refer to http://education.Intelleflex/faq/FWJ16z0 (This link is being provided for informational/ educational purposes only.) Blood Venous blood specimen / Unknown 05/31/2022 8:50 AM EDT 05/31/2022 8:51 AM EDT Narrative [facility] - 06/01/2022 5:54 PM EDT FASTING:YES FASTING: YES [facility] LAB BLOOD ORDERABLES Final Re sult Performing Organization Address City/[facility]/ZIP Co de Phone Number [facility] [address], [place] [address] [email or web address] [address] [place] [address] * HIV-1/2 Antigen and Antibodies, Fourth Generation, with Reflexes (05/31/2022 8:50 AM EDT) HIV Antigen/Antibody, 4th Generation NON-REAC TIVE NON-REAC TIVE [facility] Comment: HIV-1 antigen and HIV-1/HIV-2 antibodies were [...] purpose. For additional information please refer to http://education.Intelleflex/faq/UNW277 (This link is being provided for informational/ educational purposes only.) The performance of this assay has not been clinically validated in patients less than 2 years old. Blood Venous blood specimen / Unknown 05/31/2022 8:50 AM EDT 05/31/2022 8:51 AM EDT Narrative [facility] - 06/01/2022 5:54 PM EDT FASTING:YES FASTING: YES [facility] LAB BLOOD ORDERABLES Final Re sult [facility] [address], [place] [address] [facility] [address] [place] [address] * (ABNORMAL) Lipid Panel, Standard (05/31/2022 8:50 AM EDT) Cholesterol, Total 218(H) <200 mg/dL [facility] HDL Cholesterol 62 > OR = 50 mg/dL [facility] Triglycerides 206(H) <150 mg/dL [facility] Comment: If a non-fasting specimen was collected, consider repeat triglyceride testing on a fasting specimen if clinically indicated. Griselda et al. J. of Clin. Lipidol. 2015;9:129-169. LDL Cholesterol 124(H) mg/dL (calc) [facility] Comment: Reference range: <100 Desirable range <100 mg/dL for primary prevention; <70 mg/dL for patients with CHD or diabetic patients with > or = 2 CHD risk factors. LDL-C is now calculated using the Zheng calculation, which is a validated novel method providing better accuracy than the Friedewald equation in the estimation of LDL-C. Mario SS et al. ANOOP. 2013;310(19): 0878-0430 (http://education.servtag/faq/ONO329) Chol/HDLC Ratio 3.5 <5.0 (calc) [facility] Non-HDL Cholesterol 156(H) <130 mg/dL (calc) [facility] Comment: For patients with diabetes plus 1 major ASCVD risk factor, treating to a non-HDL-C goal of <100 mg/dL (LDL-C of <70 mg/dL) is considered a therapeutic option. Blood Venous blood specimen / Unknown 05/31/2022 8:50 AM EDT 05/31/2022 8:51 AM EDT Narrative [facility] - 06/01/2022 5:54 PM EDT FASTING:YES FASTING: YES [facility] SENIOR BUSINESS BROKER LAB BLOOD ORDERABLES Final Re sult [facility] [address], [place] [address] [facility] [address] [place] [address] * Mammography Report 1 (02/20/2021 10:24 AM [...] E6/E7 rflx Not Detected Not Detected [facility] Comment: Methodology: Grip Wrapper-Mediated Amplification This assay detects E6/E7 viral messenger RNA (mRNA) from 14 high-risk HPV types (16,18,31,33,35,39,45,51,52,56,58,59,66,68). The analytical performance characteristics of this assay have been determined by [facility]. The modifications have not been cleared or approved by the FDA. This assay has been validated pursuant to the CLIA regulations and is used for clinical purposes. For additional information, please refer to http://education.Intelleflex/faq/EDO248y8 (This link if provided for information/ educational purposes only.) THIS TEST WAS PERFORMED AT: [facility] [address] [place] [address] [address],[place] [address] FRANCISCO JAVIER DUVAL MD 12/28/2020 11:1 4 AM EDT Macarena Rodriguez HISTORICAL/NON ORDERABLE LABS Fi nal Result [facility] [address] * Colonoscopy (09/29/2019) Colonoscopy Normal Normal Narrative Patricia Arreaga - 09/29/2019 Repeat in 5 year due to history of tubular adenomas Historical Provider HEALTH MAINTENANCE Final Result from Last 3 Months or Most Recently Relevant to Health Maintenance [facility] [employer] Care Teams Automotive Center Manager Relationship Specialty Start Date End Date Lilian Mcclellan FNP [address] [place] [phone] PCP - General Family Medicine 04/26/22 Mono Huggins FNP [address] [place] [address] Nurse Practitioner Family Medicine 01/21/23 Maureen Gastelum Riding TeacherAtmospheric Chemist 02/11/24
--- OUTSIDE RECORDS SUMMARY | 2025-02-08 19:24 | XMS_ITS | Encounter Summary ---
Author Organization [employer] Address [address] [facility] 7t [place] [address] Care Team Providers Care Contract Runner Name Role Phone [facility] Primary Care Provider [phone] Mono Huggins CLINICAL SAFETY MANAGER Unavailable Unavailable Reason for Visit * Reason Onset Date Comments Referral 08/30/2023 Encounter Details Date Type Department Care Team (Late st Contact Info) Description 08/30/2023 Telephone [facility] [address] [place] [address] [place] [facility] [address] [place] [address] Referral Social History Tobacco Use Types Packs/Day [...] receive injections in shoulders and knees [place] [facility]. At this time reports knees are all set and are not bothering her. [facility] reviewed, pt. Last seen by [...] 09/02/2023 10:59 AM EDT TC returned to Maureen [phone] however no answer, RN left requesting CB to red team nurses. Maureen to f/u PRN. * Telephone Encounter - Dain Lucia - 08/30/2023 3:43 PM EDT Tc from Maureen with [facility] calling requesting status on physical therapy and orthopedics referral. Please contact Maureen at [phone]. documented in this encounter Plan of Treatment Upcoming Encounters Date Type Department Care Team (Late st Contact Info) Description 02/09/2025 11:30 AM EST Office Visit [facility] [address] [place] [address] Cindy Dumas, OD [address] [place] [address] 03/03/2025 2:45 PM EST Office Visit [facility] [address] [place] [address] Lilian Mcclellan FNP [address] [place] [address] 05/21/2025 3:15 PM EDT Office Visit [facility] [address] [place] [address] Halima Hickman MD [address] [place] [address] documented as of this encounter Visit Diagnoses Not on filedocumented in this encounter Additional Health Concerns Assessment Noted Time PHQ-9 Depression Total Score: 0 05/28/19 24 9:46 AM EDT documented as of this encounter Care Teams Contract Runner Relationship Specialty Start Date End Date Lilian Mcclellan FNP [address] [place] [address] PCP - General Family Medicine 04/26/22 Mono Huggins FNP [address] [place] [address] Nurse Practitioner Family Medicine 01/21/23 Maureen Gastelum Cable WeaverGame Advisor 02/11/24 documented as of this encounter
== END 2025-02-08 13:23 | disposition home or self-care (01) ==
LOC: HO.HHCX 13:22
PROVIDERS: PCP Registered Nurse; Referring Provider Registered Nurse; Visit Provider Nurse Practitioner Primary Care
DX: J45.51 Severe persistent asthma with (acute) exacerbation (principal)
CPT/HCPCS: 71046

== ENCOUNTER → 2025-02-08 13:28 | Outpatient (BNV) | payer MEDICAID, SELFPAY | PROVIDERS: PCP Registered Nurse; Referring Provider Registered Nurse; Visit Provider Radiology Diagnostic Ultrasound | DX: Z03.89 Encounter for observation for other suspected diseases and conditions ruled out (principal) | CPT/HCPCS: 71046 ==

== ENCOUNTER 2025-02-12 02:06 | Observation (INO) | payer MEDICAID, SELFPAY ==
--- OUTSIDE RECORDS SUMMARY | 2025-02-08 11:30 | XMS_ITS | Encounter Summary ---
Author Organization [employer] Address [address] [facility] 7t [place] [address] Care Team Providers Care Spring Clipper Name Role Phone Lilian Mcclellan BOTTOM FINISHER Primary Care Provider [phone] Mono Huggins Unavailable Unavailable Reason for Visit * Reason Comments sick onsite Encounter Details Date Type Department Care Team (Late st Contact Info) Description 02/08/2025 11:30 AM EST Office Visit [facility] [address] [place] [address] Christofer Zelaya ANP [address] [place] [address] Severe persistent asthma with acute exacerbation (HCC) (Primary Dx) Social History Tobacco Use Types [...] AM EDT documented as of this encounter Last Filed Vital Signs Vital Sign Reading Time Taken Comments Blood Pressure 120/80 02/08/2025 11:49 AM EST Pulse 86 02/08/2025 11:49 AM EST Temperature 36.2 C (97.1 F) 02/08/2025 11:49 AM EST Respiratory Rate 20 02/08/2025 11:49 AM EST Oxygen Saturation 96% 02/08/2025 12:17 PM EST Inhaled Oxygen Concentration - - Weight 92.5 kg (204 lb) 02/08/2025 11:49 AM EST Height 149.9 cm (4' 11 ) 02/08/2025 11:49 AM EST Body Mass Index 41.2 02/08/2025 11:49 AM EST documented in this encounter Progress Notes * SHEILA Max - 02/08/2025 11:30 AM EST Subjective 64yo w/ asthma here for sick visit s/p visit w/ PCP last wk for same. Rx'd prednisone, albuterol neb and trelegy. Rapid flu/COVID negative 02/01/25. Was advised to contact pulm for appointment. Trelegy needs PA. PMH significant for HTN, HLD, allergic rhinitis, severe persistent asthma previously followed closely with allergy and pulmonology (lost contact since May d/t insurance), IBS, GEORGIE on CPAP, and GERD Pulm Dr. Lucia next visit later this mo Supposed to be on xolair but d/t insurance issues has not had in 6 mo Reports lately the last week or 2 she is having more chest congestion and wheezing. She is having to use her nebulizer up to 4 times a day. She can't say whether the prednisone burst helped symptoms.Last neb use 9:30 this AM. Had fever yesterday 102. Responded to APAP. Today none. She does not think she has budesonide neb at home. Per pharmacy last fill 07/2024. Mac ARRIAGA provided Guinean interpretation. Review of Systems Constitutional: Positive for chills, fatigue and fever. HENT: Negative for sore throat. Eyes: Negative for visual disturbance. Respiratory: Positive for cough, chest tightness, shortness of breath and wheezing. Cardiovascular: Negative for palpitations. Gastrointestinal: Negative for constipation and diarrhea. Endocrine: Negative for polydipsia, polyphagia and polyuria. Genitourinary: Negative for dysuria. Objective Blood pressure 120/80, pulse 86, temperature 97.1 ??F (36.2 ??C), temperature source Temporal, resp. rate 20, height 4' 11 (1.499 m), weight 204 lb (92.5 kg), SpO2 96%. Physical Exam Vitals reviewed. Constitutional: General: She is not in acute distress. Appearance: Normal appearance. She is not ill-appearing. HENT: Head: Normocephalic and atraumatic. Eyes: General: No scleral icterus. Extraocular Movements: Extraocular movements intact. Pupils: Pupils are equal, round, and reactive to light. Cardiovascular: Rate and Rhythm: Normal rate and regular rhythm. Pulmonary: Effort: Pulmonary effort is normal. No tachypnea, accessory muscle usage, respiratory distress or retractions. Breath sounds: Decreased air movement present. Wheezing present. No rhonchi. Lymphadenopathy: Cervical: No cervical adenopathy. Neurological: Mental Status: She is alert and oriented to person, place, and time. Psychiatric: Mood and Affect: Mood normal. Behavior: Behavior normal. Diagnoses and all orders for this visit: Severe persistent asthma with acute exacerbation (HCC) And COPD per pulm notes Will treatment for COPD exacerbation w/ z-lyudmila, longer prednisone taper, tessalon perlbeka, refilled levocetirizine, check chest XR to r/o PNA (recent fever) Refilled albuterol neb solution (did administer neb here x 1 with only mild improvement in symptoms) ED precautions reviewed, call clinic or go to ED for persistent or worsening sx - azithromycin (Zithromax) 250 MG tablet; Take 2 tablets (500 mg) by mouth Once per day for 1 day, THEN 1 tablet (250 mg) Once per day for 4 days. - XR Chest 2 Views; Future - albuterol (2.5 MG/3ML) 0.083% nebulizer solution; Take 3 mL (2.5 mg) by nebulization every 4 (four) hours if needed for wheezing. - predniSONE (Deltasone) 20 MG tablet; Take 3 tablets (60 mg) by mouth Once daily for 3 days, THEN2 tablets (40 mg) Once daily for 3 days, THEN 1 tablet (20 mg) Once daily for 3 days, THEN 0.5 tablets (10 mg) Once daily for 4 days. - ipratropium-albuterol (Duo-Neb) 0.5-2.5 mg/3 mL nebulizer solution 3 mL - levocetirizine (Xyzal) 5 MG tablet; Take 1 tablet (5 mg) by mouth Once per day. Other orders - benzonatate (Tessalon) 200 MG capsule; Take 1 capsule (200 mg) by mouth if needed in the morning,at noon, and at bedtime for cough for up to 7 days. Do not crush or chew. documented in this encounter Plan of Treatment Upcoming Encounters Date Type Department Care Team (Late st Contact Info) Description 03/03/2025 2:45 PM EST Office Visit [facility] [address] [place] [address] Lilian Mcclellan FNP [address] [place] [address] 05/21/2025 3:15 PM EDT Office Visit [address] [address] Halima Hickman MD [address] [place] [address] documented as of this encounter Procedures Procedure Name Priority Date/Time Associated Diagnosis Comments XR CHEST 2 VIEWS Routine 02/08/2025 1:30 PM EST Severe persistent asthma with acute exacerbation (HCC) documented in this encounter Results * XR Chest 2 Views (02/08/2025 1:30 PM EST) Anatomical Region Laterality Modality Chest Radiographic Kenyetta ging 02/08/2025 1:30 PM EST Narrative 02/08/2025 1:47 PM EST [facility] [address] [place] [address] XRay Report Signed Patient: Rita Patel MR#: [id number] : 1960 Acct:[id number] Age/Sex: 64 / F ADM Date: 02/08/25 [facility] Dr: Christofer Zelaya NP Ordering Physician: CHRISTOFER ZELAYA NP Date of Service: 02/08/25 Procedure(s): XR chest 2V Accession Number(s): [id number] cc: CHRISTOFER ZELAYA INVENTORY MANAGEMENT SPECIALIST; [facility] Reason for Exam: r/o PNA EXAMINATION: XR CHEST CLINICAL INFORMATION: r/o PNA COMPARISON: X-ray 06/08/2024 TECHNIQUE: 2 views of the chest were obtained. FINDINGS: The cardiomediastinal silhouette is within normal limits. The lungs are well expanded. There is no focal consolidation, edema, or effusion. No pneumothorax. No acute osseous abnormality. XR/XR chest 2V IMPRESSION: No acute findings Electronically signed by: Meet Moreland MD 02/08/2025 01:43 PM EST RP Dictated By: Meet Moreland MD Signed By: <Electronically signed by Meet Moreland MD in OV> 02/08/25 1343 DD/ 1330 TD/TT: 02/08/25 1338 Campus Coordinator: Procedure Note Donotuseinterpreter, Image - 02/08/2025 [facility] [address] [place] [address] XRay Report Signed Patient: Rita Patel DMR#: [id number] : 1960Acct:[id number] Age/Sex: 64 / FADM Date: 02/08/25 Loc: [facility] Attending Dr: Christofer Zelaya NP Ordering Physician: CHRISTOFER ZELAYA NP Date of Service: 02/08/25 Procedure(s): XR chest 2V Accession Number(s): [id number] cc: CHRISTOFER ZELAYA INVENTORY MANAGEMENT SPECIALIST; [facility] Reason for Exam: r/o PNA EXAMINATION: XR CHEST CLINICAL INFORMATION: r/o PNA COMPARISON: X-ray 06/08/2024 TECHNIQUE: 2 views of the chest were obtained. FINDINGS: The cardiomediastinal silhouette is within normal limits. The lungs are well expanded. There is no focal consolidation, edema, or effusion. No pneumothorax. No acute osseous abnormality. XR/XR chest 2V IMPRESSION: No acute findings Electronically signed by: Meet Moreland MD 02/08/2025 01:43 PM EST RP Dictated By: Meet Moreland MD Signed By: <Electronically signed by Meet Moreland MD in OV> 02/08/25 1343 DD/ 1330 TD/TT: 02/08/25 1338 Campus Coordinator: ZAK Christofer Zelaya ANP IMG XR PROCEDURES Final Result documented in this encounter Visit Diagnoses Diagnosis Severe persistent asthma with acute exacerbation (HCC)- Primary documented in this encounter Administered Medications Inactive Administered Medications - up to 3 most recent administrations Medication Order MAR Action Action Date Dose Rate Site ipratropium-albuterol (Duo-Neb) 0.5-2.5 mg/3 mL nebulizer solution 3 mL 3 mL, Nebulization, Once, On 02/08/25 at 1230, For 1 doseIndications:Severe persistent asthma with acute exacerbation (HCC) Given 02/08/2025 12:30 PM EST 3 mL documented in this encounter Additional Health Concerns Assessment Noted Time PHQ-9 Depression Total Score: 0 06/30/20 25 9:53 AM EDT documented as of this encounter Care Teams Spring Clipper Relationship Specialty Start Date End Date Lilian Mcclellan FNP [address] [place] [address] PCP - General Family Medicine 04/26/22 Mono Huggins FNP [address] [place] [address] Nurse Practitioner Family Medicine 01/21/23 Maureen Gastelum Range ScientistPad Hand 02/11/24 documented as of this encounter
[2025-02-12] VITALS (15 sets, daily range): BP systolic 107–138; BP diastolic 49–82; PULSE 66–100; RESP 14–20; TEMP 36.4–36.9; O2SAT 91–98; BMI 41.0; BMI 38.9
--- NOTE | ~2025-02-12 | XR_ITS ---
CLINICAL HISTORY: fall 3 view, pelvis and left hip Comparison: None provided Findings: No acute fracture or dislocation. Mild narrowing and degenerative spurring in the bilateral hip joints. The soft tissues are unremarkable. IMPRESSION: 1. No acute fracture or dislocation. 2. Mild osteoarthritic changes. This document has been electronically signed by: Riri Hartman DO on 02/14/2025 15:19:02
--- NOTE | ~2025-02-12 | XR_ITS ---
CLINICAL HISTORY: fall 2 view left knee Comparison: None provided Findings: Bones intact. No dislocations. Mild tricompartmental joint space narrowing with degenerative spurring. No joint effusion. No radiopaque foreign body. Small suprapatellar spur /quadriceps tendon enthesophyte. IMPRESSION: No acute fracture, dislocation or significant joint effusion. This document has been electronically signed by: Riri Hartman DO on 02/14/2025 15:17:31
--- NOTE | ~2025-02-12 | CT_ITS ---
EXAMINATION: CT HEAD WITHOUT IV CONTRAST HISTORY: syncope, hit head, PENA. TECHNIQUE: Unenhanced helical CT of the head was performed per standard departmental protocol. Coronal and sagittal reformats of the head were also evaluated. One or more of the following techniques was used for dose reduction: Automated exposure control, adjustment of the mA and/or kV according to patient size, use of iterative reconstruction technique. DLP: 758 mGy-cm COMPARISON: Comparison is made with the prior examination dated 05/29/2024. FINDINGS: BRAIN: The brain parenchyma is unremarkable. There is normal vaughn/white differentiation. The ventricular system is normal in size and configuration. There is no mass effect or midline shift. No intra- or extra-axial fluid collections are identified. SINUSES: The visualized paranasal sinuses are clear. The mastoid air cells and middle ear cavities are well pneumatized. ORBITS: The visualized orbits are unremarkable. BONES/SOFT TISSUES: The extracranial soft tissues are unremarkable. The calvarium is intact. No suspicious lytic or sclerotic lesions. CT/CT head/brain wo IV con IMPRESSION: No acute intracranial abnormality. Electronically signed by: Ridge Ugalde MD 02/12/2025 08:[address] [facility]
--- NOTE | ~2025-02-12 | CT_ITS ---
EXAMINATION: CT ABDOMEN AND PELVIS WITH CONTRAST CLINICAL INFORMATION: diffuse abdominal pain COMPARISON: 10/30/2023 TECHNIQUE: Multidetector volumetric images were obtained from the superior aspect of the liver through the pubic symphysis following administration 85 mL of Omnipaque 350 intravenous contrast. Sagittal and coronal reformatted images were obtained on the technologist's workstation. Oral contrast: No This CT examination was performed using dose optimization techniques as appropriate, variously including the following: *Automated exposure control *Adjustment of mA and/or kV according to patient size (this includes techniques or standardized protocols for targeted exams where dose is matched to indication/reason for exam; i.e. extremities or head) *Use of iterative reconstruction technique FINDINGS: LUNG BASES: Patchy and confluent opacity is present in the left lower lobe concerning for pneumonia. LIVER, GALLBLADDER, AND BILIARY TREE: There is mild intrahepatic biliary ductal dilation. There is a calcified stone within the gallbladder. There is no gallbladder wall thickening or extrahepatic bile duct dilation. PANCREAS: Unremarkable. SPLEEN: Unremarkable. ADRENAL GLANDS: Unremarkable. KIDNEYS AND URETERS: The kidneys are normal in size, shape, and attenuation. No hydronephrosis, hydroureter, or calculi seen. No perinephric stranding. BLADDER: Unremarkable. GASTROINTESTINAL TRACT: The small and large bowel are unremarkable. The appendix is unremarkable. ABDOMINAL WALL: Again seen is a very small umbilical hernia containing adipose tissue. LYMPH NODES: Normal. VASCULAR: Unremarkable. PELVIC VISCERA: Uterus and ovaries are unremarkable. OSSEOUS STRUCTURES: Unremarkable. CT/CT abdomen pelvis w IV con IMPRESSION: Suspected left lower lobe pneumonia. Cholelithiasis and minimal intrahepatic biliary ductal dilation without gallbladder wall thickening. Fleischner guidelines were followed. Electronically signed by: Jassi Aragon MD 02/12/2025 10:30 AM [facility]
--- NOTE | ~2025-02-12 | US_ITS ---
EXAMINATION: US TRIPLEX LOWER EXTREMITY, LEFT CLINICAL INFORMATION: Fall with swelling left leg. COMPARISON: None available. TECHNIQUE: Color-flow triplex imaging with spectral analysis and compression Doppler were performed on the left lower extremity. FINDINGS: Respiratory variation, normal compression and augmented flow are noted throughout the left lower extremity. The visualized common femoral vein, superficial femoral vein, profunda femoral vein, popliteal vein and midcalf peroneal and posterior tibial venous segments show no evidence of deep venous thrombosis. There is no Short's cyst. US/US venous duplex LE LT IMPRESSION: No evidence of deep venous thrombosis involving the left lower extremity. Electronically signed by: Eleuterio Solis MD 02/15/2025 08:54 AM EST
--- NOTE | ~2025-02-12 | CT_ITS ---
EXAMINATION: CT ANGIOGRAM CHEST CLINICAL INFORMATION: Syncope, O2 desaturations. COMPARISON: CT angiogram chest 06/17/2023. Chest radiograph dated 02/08/2025. TECHNIQUE: Multiple axial images were obtained through the chest after the administration of 85 mL of Omnipaque 350 intravenous contrast. Extensive vascular post-processing including two-dimensional and three-dimensional reformatted images were created and reviewed on an independent workstation. This CT examination was performed using dose optimization techniques as appropriate, variously including the following: *Automated exposure control *Adjustment of mA and/or kV according to patient size (this includes techniques or standardized protocols for targeted exams where dose is matched to indication/reason for exam; i.e. extremities or head) *Use of iterative reconstruction technique FINDINGS: VASCULAR: Study quality is adequate. There is no evidence of pulmonary embolus. Main pulmonary artery is normal in size. There is no evidence of right heart strain. Mild reflux of contrast into the IVC, likely indicating increased right heart pressures. The aorta is normal in caliber and appearance without acute aortic syndrome. The great vessels branch normally and are patent. There is mild cardiac enlargement. There is no pericardial effusion. No significant coronary artery calcifications are present. LUNGS: There is patchy nodular parenchymal opacification in the left lower lobe consistent with pneumonia. There is some associated groundglass attenuation and reticular changes. There is no pleural effusion. There is diffuse thickening of the small airways in keeping with inflammatory airways disease. The remainder of the lungs appear grossly clear. Minor atelectasis is present dependently. There is no suspicious pulmonary nodule identified allowing for limitations of underlying lung disease. PLEURA: There is no pleural effusion. No pleural mass or thickening. MEDIASTINUM: The esophagus is diffusely patulous. There is no mediastinal lymphadenopathy or mass. There are a few subcentimeter reactive appearing lymph nodes present. The partially imaged thyroid appears mildly globally enlarged without discrete nodule. AXILLA/CHEST WALL: No abnormal mass or lymphadenopathy present. Patient is morbidly obese. UPPER ABDOMEN: Please refer to the dedicated CT abdomen pelvis performed concurrently. OSSEOUS STRUCTURES: There is no suspicious lytic or blastic bone lesion evident. Mild degenerative changes of the thoracic spine. CT/CT angio chest PE protocol IMPRESSION: 1. There is no evidence of pulmonary embolus. There is no evidence of acute aortic syndrome. 2. There are consolidative changes in the left lower lobe consistent with bronchopneumonia. 3. There is diffuse thickening of the small airways in keeping with inflammatory/infectious airways disease. 4. There is mild cardiac enlargement. 5. The esophagus is diffusely patulous. 6. Additional ancillary findings as discussed in the body of the report. Electronically signed by: Nilo Vidal MD 02/12/2025 10:32 AM [facility]
--- OUTSIDE RECORDS SUMMARY | 2025-02-12 03:06 | XMS_ITS | Encounter Summary ---
Author Organization [employer] Address 75 [facility] 7t [place] [address] Care Team Providers Care Fiberglass Quality Technician Name Role Phone Lilian Mcclellan COST SPECIALIST Primary Care Provider [phone] Mono Huggins Unavailable Unavailable Reason for Referral * Consultation (Routine) - Closed Specialty Diagnoses / Procedures Referred By Contac t Referred To Contact Pharmacy Diagnoses Diastolic dysfunction without heart failure Sun King MD [address] [place] [address] Phone: tel: fax: Referral ID Status Reason Start Date Expiration Date V isits Requested Visits Authorized [id number] Closed Continuity of Care 03/17/2024 03/17/2025 6 6 Encounter Details Date Type Department Care Team (Late st Contact Info) Description 03/17/2024 Orders Only [facility] [address] [place], [place] [phone] Sun King MD [address], [place] [phone] Diastolic dysfunction without heart failure (Primary Dx) [...] Description 03/03/2025 2:45 PM EST Office Visit [facility] [address] [place] [address] [place], [place], [facility] [address] [place] [address] 05/21/2025 3:15 PM EDT Office Visit [facility] [address] [place] [address] Halima Hickman MD [address] [place] [address] Scheduled Referrals Name Type Priority Associated Diagnoses [...] documented as of this encounter Care Teams Fiberglass Quality Technician Relationship Specialty Start Date End Date Lilian Mcclellan FNP [address] [place] [address] PCP - General Family Medicine 04/26/22 Mono Huggins FNP [address] [place] [address] Nurse Practitioner Family Medicine 01/21/23 Maureen Gastelum Audit Machine OperatorEnvironmental Construction Engineer 02/11/24 documented as of this encounter
--- OUTSIDE RECORDS SUMMARY | 2025-02-12 03:06 | XMS_ITS | Encounter Summary ---
Author Organization [employer] Address [address] [facility] 7t [place] [address] Care Team Providers Care Catering Truck Operator Name Role Phone Lilian Mcclellan PARAOPTOMETRIC Primary Care Provider [phone] Mono Huggins PARAOPTOMETRIC Unavailable Unavailable Encounter Details Date Type Department Care Team (Late st Contact Info) Description 01/11/2023 Abstract [facility] [address] [place] [address] Patricia Arreaga Social History Tobacco Use Types [...] Description 03/03/2025 2:45 PM EST Office Visit [facility] [address] [place] [address] Lilian Mcclellan FNP [address] [place] [address] 05/21/2025 3:15 PM EDT Office Visit [address] [phone] Halima Hickman MD [address] [place] [address] documented as of this encounter Procedures Procedure [...] documented as of this encounter Care Teams Catering Truck Operator Relationship Specialty Start Date End Date Lilian Mcclellan FNP [address] [place] [address] PCP - General Family Medicine 04/26/22 Mono Huggins FNP [address] [facility] [address] Nurse Practitioner Family Medicine 01/21/23 Maureen Gastelum Residential Care OfficerInsurance Operations Rep 02/11/24 documented as of this encounter
--- OUTSIDE RECORDS SUMMARY | 2025-02-12 03:06 | XMS_ITS | Encounter Summary ---
Author Organization [employer] Address 75 [facility] 7t [place] [address] Care Team Providers Care Scaler Packer Name Role Phone [facility] Primary Care Provider [phone] Mono Huggins STUD DAIRY CATTLE FARMER Unavailable Unavailable Reason for Visit * Reason Comments Med Refill Encounter Details Date Type Department Care Team (Late st Contact Info) Description 05/12/2024 Refill [facility] [address] [place] [address] [facility] [address] [place] [address] Class 3 severe obesity due to excess [...] Description 03/03/2025 2:45 PM EST Office Visit [facility] [address] [place] [address] Lilian Mcclellan FNP [address] [place] [address] 05/21/2025 3:15 PM EDT Office Visit [facility] [address] [place] [address] Halima Hickman MD [address] [place] [address] documented as of this encounter Visit Diagnoses Diagnosis Class 3 severe obesity due to excess calories with serious comorbidity and body mass index (BMI) of 40.0 to 44.9 in adult (HCC) documented in this encounter Additional Health Concerns Assessment Noted Time PHQ-9 Depression Total Score: 0 01/15/20 24 11:36 AM EST documented as of this encounter Care Teams Scaler Packer Relationship Specialty Start Date End Date Lilian Mcclellan FNP [address] [place] [address] PCP - General Family Medicine 04/26/22 Mono Huggins FNP [address] [place] [address] Nurse Practitioner Family Medicine 01/21/23 Maureen Gastelum Public Relations DirectorSewage Plant Supervisor 02/11/24 documented as of this encounter
--- OUTSIDE RECORDS SUMMARY | 2025-02-12 03:06 | XMS_ITS | Clinical Summary ---
Author Organization [employer] Address [address] [place] [address] 7t [place] [address] Care Team Providers Care Ethologist Name Role Phone Lilian Mcclellan INFORMATION SECURITY DIRECTOR Primary Care Provider Mono Huggins INFORMATION SECURITY DIRECTOR Unavailable Unavailable Allergies Active Allergy Reactions Criticality Noted Date Comments Gramineae Pollens Itching Medium 10/01/2023 Peanut-Containing Drug Products Rash Medium 10/01/2023 Penicillin V 12/03/1997 Other Reaction(s): rash Penicillins Rash Low 03/21/2022 Anderson Pulp Swelling Medium 10/01/2023 Anderson skin only Medications * This document contains [...] AT BEDTIME 90 tablet 1 025 Active tiZANidine (Zanaflex) 4 MG capsule Take 1 capsule (4 mg) by mouth if needed in the morning, at noon, and at bedtime for muscle spasms for up to 10 days. 30 capsule 025 Active Tirzepatide-Weigh t Management (Zepbound) 2.5 [...] puff Once per day. 1 each Active azithromycin (Zithromax) 250 MG tabletIndications :Severe persistent asthma with acute exacerbation (HCC) Take 2 tablets (500 mg) by mouth Once per day for 1 day, THEN 1 tablet (250 mg) Once per day for 4 days. 6 tablet 02/09/20 2:10 PM EST 2024 Active albuterol (2.5 [...] 20 tablet 02/09/20 25 2:10 PM EST 12/15/2 025 12/28/ 2025 Active levocetirizine (Xyzal) 5 MG tabletIndications :Severe [...] (seven) days. 2 mL 025 2024 Discontinued ibuprofen 600 MG tablet Take 1 tablet (600 mg) by mouth every 8 (eight) hours if needed for mild pain or moderate pain for up to 10 days. 30 tablet 02/02/20 25 5:56 PM EST 025 2024 albuterol (2.5 MG/3ML) 0.083% nebulizer solutionIndicatio ns:Restrictive [...] 10 tablet 02/02/20 25 5:56 PM EST 025 2024 Discontinued(T herapy completed) albuterol (2.5 MG/3ML) 0.083% nebulizer solutionIndicatio ns:Severe persistent asthma with acute exacerbation (HCC) Take 3 mL (2.5 mg) by nebulization every 4 (four) hours if needed for wheezing. 90 mL 1 02/02/20 25 5:56 PM EST 025 2024 Discontinued(R eorder (will not trigger notification to Pharmacy)) Trelegy Ellipta 200-62.5-25 MCG/ACT aerosol powder Inhale 1 puff Once per day. 2024 Discontinued(R eorder (will not trigger notification to Pharmacy)) tobramycin-dexAME THasone (Tobradex) ophthalmic suspensionIndicat ions:Ocular rosacea Administer 2 drops into both eyes 4 times daily for 7 days. 5 mL 02/06/20 25 2:50 PM EST 2024 Hospital, Clinic, or Other Facility Administered Medication [...] (11/18/2024 9:43 AM EDT): Orders: Referral to [facility] Derm Skin Adult; Future Sleep apnea 10/28/2024 [...] albuterol for asthma. RTC prn Pulmonary hypertension ([facility]/HCC) 07/16/2023 Assessment & Plan (11/05/2023 11:21 AM [...] negative Has upcoming appt. Pap: Followed by [facility] GLASS CUT OFF SUPERVISOR, Dr. Irizarry C-scope: 2019, repeat 5 years BMD: Routine age 67 LDCT done 08/24/22 was Lung RADS 2 - plan is for yearly LDCT HCV Screen: Neg 05/2022 HIV Screen: Neg 05/2022 Screening Labs: A1c 5.6 05/2022 Severe persistent asthma 05/09/2022 Overview (06/12/2022): Followed by [facility] pulmonology Severe allergic asthma Incruse Ellipta Levalbuterol [...] any questions or concerns, she should call [facility] BH Department and/or PCP. I have wished [...] be retiring in approx 1 year, but [facility] should have new provider in place to [...] plan. Palpitations 10/15/2017 Overview (06/12/2022): Followed by [facility] cardiology Metoprolol XR 25mg daily Assessment & Plan (11/18/2022 4:26 PM EDT): - No current sx during office visit - 2020 echo with normal EF. Mild elevation in LV filling pressure. -2017 lunchroom monitor with PACs and atrial tachycardia - Will submit referral to [facility] cardiology per patient request - Continue daily metoprolol Obesity 04/09/2017 Knee pain 12/04/2016 Keratosis 05/11/2016 Seborrheic keratosis 05/11/2016 Gastroesophageal reflux disease 06/06/2015 Overview (05/09/2022): Followed by [facility] GI Shoulder pain 06/06/2015 Chronic pain 06/06/2015 [...] Description 02/08/2025 11:30 AM EST Office Visit [facility] [address] [facility] [place] [address] Christofer Zelaya ANP Severe persistent asthma with acute exacerbation (HCC) (Primary Dx) 02/08/2025 Results Follow-Up [facility] [address] [facility] [place] [address] Christofer Zelaya ANP XR Chest 2 Views 02/08/2025 Telephone [facility] [address] [facility] [place] [address] Christofer Zelaya ANP 02/08/2025 Travel 02/08/2025 Telephone [facility] MEDICINE [address] [place] [address] Lilian Mcclellan FNP asthma status check 02/05/2025 Refill [facility] [address] [place] [address] Lilian Mcclellan FNP Restrictive lung disease 02/03/2025 3:30 PM EST Office Visit [facility] OPTOMETRY [address] [facility] [place] [address] Tarka, Cindy, OD Ocular rosacea (Primary Dx) 02/03/2025 Travel 02/01/2025 3:15 PM EST Office Visit [facility] [address] [facility] [place] [address] Lilian Mcclellan FNP Severe persistent asthma with acute exacerbation (HCC) (Primary Dx); Viral upper respiratory illness; Class 3 severe obesity due to excess calories with serious comorbidity and body mass index (BMI) of 40.0 to 44.9 in adult (HCC); Anxiety; Ocular rosacea 02/01/2025 Travel 01/29/2025 3:45 PM EST Office Visit [facility] MEDICINE [address] [place] [address] Halima Hickman MD Inflamed skin tag 01/29/2025 Travel 01/28/2025 Telephone [facility] MEDICINE [address] [place] [address] Lilian Mcclellan FNP Referral 01/20/2025 Telephone [facility] [address] [place] [address] Lilian Mcclellan FNP chart prep 12/11/2024 Travel 12/11/2024 Telephone [facility] MEDICINE [address] [place] [address] Lilian Mcclellan FNP Nurse Triage from Last [...] Description 03/03/2025 2:45 PM EST Office Visit [facility] MEDICINE [address] [place] [address] [facility] [address] [place] [address] 05/21/2025 3:15 PM EDT Office Visit [address] [address] Halima Hickman MD [address] [place] [address] Health Maintenance Due Date Last Done Comments [...] 09/29/2019 Colorectal Cancer Screening 09/28/2024 COVID-19 Vaccine (2 - season) 2024 05/11/2020 Influenza Vaccine (#1) 2024 [...] PM EST Narrative 02/08/2025 1:47 PM EST [address] [address] XRay Report Signed Patient: Rita Patel MR#: [id number] : 1960 Acct:[id number] Age/Sex: 64 / F ADM Date: 02/08/25 Loc: PIPE Attending Dr: Christofer Zelaya NP Ordering Physician: CHRISTOFER ZELAYA NP Date of Service: 02/08/25 Procedure(s): XR chest 2V Accession Number(s): [id number] cc: CHRISTOFER ZELAYA NP; [facility] Reason for Exam: r/o PNA EXAMINATION: [...] by: Meet Moreland MD 02/08/2025 01:43 PM [facility] Dictated By: Meet Moreland MD Signed By: <Electronically signed by Meet Moreland MD in OV> 02/08/25 1343 DD/ 1330 TD/TT: 02/08/25 1338 Senior Pharmacy Technician: Procedure Note Donotuseinterpreter, Image - 02/08/[address] [address] XRay Report Signed Patient: Rita Patel DMR#: [id number] : 1960Acct:[id number] Age/Sex: 64 / FADM Date: 02/08/25 Loc: PIPE Attending Dr: Christofer Zelaya NP Ordering Physician: CHRISTOFER ZELAYA NP Date of Service: 02/08/25 Procedure(s): XR chest 2V Accession Number(s): [id number] cc: CHRISTOFER ZELAYA NP; [facility] Reason for Exam: r/o PNA EXAMINATION: [...] 02/08/25 1343 DD/ 1330 TD/TT: 02/08/25 1338 Senior Pharmacy Technician: ZAK [facility] IMG XR PROCEDURES Final Result * POCT Rapid Influenza B REEDER ID NOW (02/01/2025 4:57 PM EST) [facility] Influenza B Negative Negative, Indeterminate [facility] Swab 02/01/2025 4:57 PM EST [facility] INFORMATION SECURITY DIRECTOR POINT OF CARE TEST ENTER/EDIT ORDERABLES Final Result Performing Organization Address [facility] de Phone Number [facility] [address] [place] [phone] * POCT Rapid Influenza A REEDER ID NOW (02/01/2025 4:57 PM EST) [facility] Influenza A Negative Negative, Indeterminate [facility] Swab 02/01/2025 4:57 PM EST [facility] INFORMATION SECURITY DIRECTOR POINT OF CARE TEST ENTER/EDIT ORDERABLES Final Result Performing Organization Address [facility] de Phone Number [facility] [address] [place] [phone] * POCT Rapid Covid-19 BinaxNOW (02/01/2025 4:57 PM EST) Rapid COVID Ag Negative [facility] Swab 02/01/2025 4:57 PM EST [facility] POINT OF CARE TEST ENTER/EDIT ORDERABLES Final Result Performing Organization Address City/[facility]/ZIP Co de Phone Number [facility] [address] [place] [address] [phone] * Hepatitis C Antibody with Reflex to HCV, RNA, Quantitative, Real-Time PCR (05/31/2022 8:50 AM EDT) Hepatitis C Antibody NON-REACT JAE NON-REACT JAE Sensory Medical Index 0.02 <1.00 [employer] [place] [employer] Comment: HCV antibody was non-reactive. There is no laboratory evidence of HCV infection. In most cases, no further action is required. However, if recent HCV exposure is suspected, a test for HCV RNA (test code 55053) is suggested. For additional information please refer to http://education.judo/faq/MAF93p2 (This link is being provided for informational/ educational purposes only.) Blood Venous blood specimen / Unknown 05/31/2022 8:50 AM EDT 05/31/2022 8:51 AM EDT Narrative [facility] - 06/01/2022 5:54 PM EDT FASTING:YES FASTING: YES [facility] LAB BLOOD ORDERABLES Final Re sult [facility] [address] [place] [address] [employer] [place] [employer] [address] [place] [address] * HIV-1/2 Antigen and Antibodies, Fourth Generation, with Reflexes (05/31/2022 8:50 AM EDT) HIV Antigen/Antibody, 4th Generation NON-REAC TIVE NON-REAC TIVE [facility] Comment: HIV-1 antigen and HIV-1/HIV-2 antibodies [...] purpose. For additional information please refer to http://education.judo/faq/YJA893 (This link is being provided for informational/ educational purposes only.) The performance of this assay has not been clinically validated in patients less than 2 years old. Blood Venous blood specimen / Unknown 05/31/2022 8:50 AM EDT 05/31/2022 8:51 AM EDT Narrative [facility] - 06/01/2022 5:54 PM EDT FASTING:YES FASTING: YES [facility] LAB BLOOD ORDERABLES Final Re sult [facility] [address] [place] [address] [employer] [place] [employer] [address] [place] [address] * (ABNORMAL) Lipid Panel, Standard (05/31/2022 8:50 AM EDT) [facility] Signature Cholesterol, Total 218(H) <200 mg/dL [employer] [place] [employer] HDL Cholesterol 62 > OR = 50 mg/dL [employer] [place] [employer] Triglycerides 206(H) <150 mg/dL [employer] [place] [facility] Comment: If a non-fasting specimen was collected, consider repeat triglyceride testing on a fasting specimen if clinically indicated. Griselda et al. J. of Clin. Lipidol. 2015;9:129-169. LDL Cholesterol 124(H) mg/dL (calc) [employer] [place] [employer] Comment: Reference range: <100 Desirable range <100 mg/dL for primary prevention; <70 mg/dL for patients with CHD or diabetic patients with > or = 2 CHD risk factors. LDL-C is now calculated using the Zheng calculation, which is a validated novel method providing better accuracy than the Friedewald equation in the estimation of LDL-C. Mario SMITH et al. ANOOP. 2013;310(19): 1753-8433 (http://TapSurge.Boxee/faq/VYT038) Chol/HDLC Ratio 3.5 <5.0 (calc) [employer] Non-HDL Cholesterol 156(H) <130 mg/dL (calc) [employer] Comment: For patients with diabetes plus 1 major ASCVD risk factor, treating to a non-HDL-C goal of <100 mg/dL (LDL-C of <70 mg/dL) is considered a therapeutic option. Blood Venous blood specimen / Unknown 05/31/2022 8:50 AM EDT 05/31/2022 8:51 AM EDT Narrative [facility] - 06/01/2022 5:54 PM EDT FASTING:YES FASTING: YES [facility] INFORMATION SECURITY DIRECTOR LAB BLOOD ORDERABLES Final Re sult [facility] [address] [place] [address] [employer] [place] [employer] [address] [place] [address] * Mammography Report 1 (02/20/2021 10:24 AM [...] Not Detected Not Detected [facility] Comment: Methodology: Founder Ceo & President-Mediated Amplification This assay detects E6/E7 viral messenger RNA (mRNA) from 14 high-risk HPV types (16,18,31,33,35,39,45,51,52,56,58,59,66,68). The analytical performance characteristics of this assay have been determined by [employer]. The modifications have not been cleared or approved by the FDA. This assay has been validated pursuant to the CLIA regulations and is used for clinical purposes. For additional information, please refer to http://education.judo/faq/QNF614k8 (This link if provided for information/ educational purposes only.) THIS TEST WAS PERFORMED AT: [facility] [address] [place] [address] [address]LO[address],[place] [address] FRANCISCO JAVIER DUVAL MD 12/28/2020 11:1 4 AM EDT Macarena Rodriguez HISTORICAL/NON ORDERABLE LABS Fi nal Result [facility] [address] * Hm Colonoscopy (09/29/2019) Colonoscopy Normal Normal Narrative Patricia Arreaga - 09/29/2019 Repeat in 5 year due to history of tubular adenomas Historical Provider HEALTH MAINTENANCE Final Result from Last 3 Months or Most Recently Relevant to Health Maintenance Insurance [employer] Care Teams Ethologist Relationship Specialty Start Date End Date Lilian Mcclellan FNP [address] [place] [address] PCP - General Family Medicine 04/26/22 Mono Huggins FNP [address] [place] [address] Nurse Practitioner Family Medicine 01/21/23 Maureen Gastelum Ms Sql Dba[employer] Storage 02/11/24
--- OUTSIDE RECORDS SUMMARY | 2025-02-12 03:06 | XMS_ITS | Encounter Summary ---
Author Organization [employer] Address [address] [place] [address] 7t [place] [address] Care Team Providers Care Booth Operator Name Role Phone [facility] Primary Care Provider [phone] Mono Huggins Unavailable Unavailable Reason for Visit * Reason Onset Date Comments Results 08/22/2022 TB Test Encounter Details Date Type Department Care Team ([facility] st Contact Info) Description 08/22/2022 Telephone [facility] [address] [place] [address] [facility] [address] [place] [address] Results (TB Test) Social History Tobacco Use [...] - 08/23/2022 11:48 AM EDT T/C to [phone] through Ide[employer] id - [id number] for TB test, pt. Informed that clinic does not receive result yet, clinic will call once result is available. Pt. Verbally agreed and understood. * Telephone Encounter - Anabella Reyes - 08/22/2022 1:47 PM EDT Tc from patient requesting tb test results. Patient speaks turkish documented in this encounter Plan of Treatment Upcoming Encounters Date Type Department Care Team (Late st Contact Info) Description 03/03/2025 2:45 PM EST Office Visit [facility] [address] [place] [address] Lilian Mcclellan FNP [address] [place] [address] 05/21/2025 3:15 PM EDT Office Visit [address] [address] Halima Hickman MD [address] [place] [address] documented as of this encounter Visit Diagnoses Not on filedocumented in this encounter Additional Health Concerns Assessment Noted Time PHQ-9 Depression Total Score: 3 08/10/19 23 10:21 AM EDT documented as of this encounter Care Teams Booth Operator Relationship Specialty Start Date End Date Lilian Mcclellan FNP [address] [place] [address] PCP - General Family Medicine 04/26/22 Mono Huggins FNP [address] [place] [address] Nurse Practitioner Family Medicine 01/21/23 Maureen Gastelum Marine Engine MechanicJuvenile Correctional Officer 02/11/24 documented as of this encounter
--- OUTSIDE RECORDS SUMMARY | 2025-02-12 03:06 | XMS_ITS | Encounter Summary ---
Author Organization [employer] Address [address] [facility] 7t [place] [address] Care Team Providers Care Coal Mill Operator Name Role Phone [facility] Primary Care Provider [phone] Mono Huggins MAPPING TECHNICIAN Unavailable Unavailable Reason for Visit * Reason Onset Date Comments Referral 08/30/2023 Encounter Details Date Type Department Care Team (Late st Contact Info) Description 08/30/2023 Telephone [facility] [address] [place] [address] [place] [facility] [address] [place] [address] Referral Social History Tobacco Use Types Packs/Day [...] receive injections in shoulders and knees at [facility]. At this time reports knees are all set and are not bothering her. [facility] reviewed, pt. Last seen by ortho and [...] 10:59 AM EDT TC returned to Maureen [phone] however no answer, RN left requesting CB to red team nurses. Maureen to f/u PRN. * Telephone Encounter - Dain Lucia - 08/30/2023 3:43 PM EDT Tc from Maureen with [facility] calling requesting status on physical therapy and orthopedics referral. Please contact Maureen at [phone]. documented in this encounter Plan of Treatment Upcoming Encounters Date Type Department Care Team (Late st Contact Info) Description 03/03/2025 2:45 PM EST Office Visit [facility] [address] [place] [address] [place] giv[place] [address] [address] 05/21/2025 3:15 PM EDT Office Visit [address] [address] Halima Hickman MD [address] [place] [address] [phone] documented as of this encounter Visit Diagnoses Not on filedocumented in this encounter Additional Health Concerns Assessment Noted Time PHQ-9 Depression Total Score: 0 05/28/19 24 9:46 AM EDT documented as of this encounter Care Teams Coal Mill Operator Relationship Specialty Start Date End Date Lilian Mcclellan FNP [address] [place] [address] PCP - General Family Medicine 04/26/22 Mono Huggins FNP [address] [place] [address] Nurse Practitioner Family Medicine 01/21/23 Maureen Gastelum Rail Gang SupervisorSpeech Teacher 02/11/24 documented as of this encounter
--- OUTSIDE RECORDS SUMMARY | 2025-02-12 03:06 | XMS_ITS | Encounter Summary ---
Author Organization [facility] Address [address] [place] [address] Phone Care Team Providers Care Supervisor Cartography Name Role Phone Unavailable Primary Care Provider Unavailabl e Encounter Details Date Type Department Care Team (Late st Contact Info) Description 04/22/2019 Ancillary Orders [facility] [address] [place] [address] Shannan Yee PA [address] [place] [address] [email or web address] Social History Tobacco Use Types Packs/Day [...] It is not the complete legal health record.[facility]
--- OUTSIDE RECORDS SUMMARY | 2025-02-12 03:07 | XMS_ITS | Encounter Summary ---
Author Organization [employer] Address 75 [facility] 7t [place] [address] Care Team Providers Care Sailmaker Name Role Phone Lilian Mcclellan TAR HEATER Primary Care Provider [phone] Mono Huggins Unavailable Unavailable Encounter Details Date Type Department Care Team ([facility] st Contact Info) Description 02/08/[address] [facility] 230 [place] [address] Jaqueline Parikh, ANP [address] [place] [address] Social History Tobacco Use Types Packs/Day Years [...] Description 03/03/2025 2:45 PM EST Office Visit [facility] [address] [place] [address] Lilian Mcclellan FNP [address] [place] [address] 05/21/2025 3:15 PM EDT Office Visit [facility] [address] [place] [address] Halima Hickman MD [address] [place] [address] documented as of this encounter Visit Diagnoses Not on filedocumented in this encounter Additional Health Concerns Assessment Noted Time PHQ-9 Depression Total Score: 0 08/25/19 25 9:53 AM EDT documented as of this encounter Care Teams Sailmaker Relationship Specialty Start Date End Date Lilian Mcclellan FNP [address] [place] [address] PCP - General Family Medicine 04/26/22 Mono Huggins FNP [address] [place] [address] Nurse Practitioner Family Medicine 01/21/23 Maureen Gastelum Process Safety SpecialistResource Room Teacher 02/11/24 documented as of this encounter
--- OUTSIDE RECORDS SUMMARY | 2025-02-12 03:07 | XMS_ITS | Encounter Summary ---
Author Organization [employer] Address [address] [facility] 7t [place] [address] Care Team Providers Care Legislative Assistant Name Role Phone Terrell [facility] Primary Care Provider [phone] Mono Huggins [facility] Unavailable Unavailable Reason for Visit * Reason Comments Med Refill Encounter Details Date Type Department Care Team (Late st Contact Info) Description 02/05/2025 Refill [facility] [address] [place] [address] [facility] [address] [place] [address] Restrictive lung disease Social History Tobacco Use [...] Description 03/03/2025 2:45 PM EST Office Visit [facility] [address] [place] [address] [address] 05/21/2025 3:15 PM EDT Office Visit [address] [address] Halima Hickman MD [address] [place] [address] documented as of this encounter Visit Diagnoses Diagnosis Restrictive lung disease Other diseases of lung, not elsewhere classified documented in this encounter Additional Health Concerns Assessment Noted Time PHQ-9 Depression Total Score: 0 08/25/19 25 9:53 AM EDT documented as of this encounter Care Teams Legislative Assistant Relationship Specialty Start Date End Date TerrellLilian givens [facility] [address] [place] [address] PCP - General Family Medicine 04/26/22 Mono Huggins FNP 230 [place] [address] Nurse Practitioner Family Medicine 01/21/23 Maureen Gastelum Loom TechnicianAssembler Production Line 02/11/24 documented as of this encounter
--- OUTSIDE RECORDS SUMMARY | 2025-02-12 03:07 | XMS_ITS | Encounter Summary ---
Author Organization [employer] Address 75 [facility] 7t [place] [address] Care Team Providers Care Pest Control Chemical Technician Name Role Phone Lilian Mcclellan CHEMICAL DEPENDENCY COUNSELOR Primary Care Provider [phone] Mono Huggins CHEMICAL DEPENDENCY COUNSELOR Unavailable Unavailable Encounter Details Date Type Department [...] t he electric, gas, oil or water [place] threatened to shut off services in your [...] Description 03/03/2025 2:45 PM EST Office Visit [facility] [address] [place] [address] Lilian Mcclellan FNP [address] [place] [address] 05/21/2025 3:15 PM EDT Office Visit [facility] [address] [place] [address] Halima Hickman MD [address] [place] [address] documented as of this encounter Visit Diagnoses Not on filedocumented in this encounter Additional Health Concerns Assessment Noted Time PHQ-9 Depression Total Score: 0 08/25/19 25 9:53 AM EDT documented as of this encounter Care Teams Pest Control Chemical Technician Relationship Specialty Start Date End Date Lilian Mcclellan FNP [address] [place] [address] PCP - General Family Medicine 04/26/22 Mono Huggins FNP [address] [place] [address] Nurse Practitioner Family Medicine 01/21/23 Maureen Gastelum Journeyman Tool And Die MakerMicroeconomics Professor 02/11/24 documented as of this encounter
--- OUTSIDE RECORDS SUMMARY | 2025-02-12 03:07 | XMS_ITS | Clinical Summary ---
Author Organization [address] Address [address] [place] [phone] Care Team Providers Care Principal Librarian Name Role Phone Halima Hickman MD Primary [...] - 144 mmol/L 10/13/2017 4:37 PM EDT [facility] Potassium 3.4 3.4 - 4.8 mmol/L 10/13/2017 4:37 PM EDT [facility] Chloride 107 98 - 107 mmol/L 10/13/2017 4:37 PM EDT [facility] CO2 24 20 - 30 mmol/L 10/13/2017 4:37 PM EDT [facility] Anion Gap 11 7 - 17 10/[facility]2017 [facility] Glucose 142(H) 70 - 100 mg/dL 10/13/2017 4:37 PM EDT [facility] BUN 10 8 - 18 mg/dL 10/13/2017 4:37 PM EDT [facility] Creatinine 0.90 0.40 - 1.30 mg/dL 10/13/2017 4:37 PM EDT [facility] Calcium 8.8 8.8 - 10.2 mg/dL 10/13/2017 4:37 PM EDT [facility] BUN/Creatinine Ratio 11.1 8.0 - 23.0 10/13/2017 4:37 PM EDT [facility] eGFR (Afr Amer) >60 >60 mL/min/1.7 3m2 10/13/2017 4:37 PM EDT [facility] Comment: Values under 60mL/min/1.73m2 may indicate CKD if noted for more than 3 months. eGFR is only valid if creatinine is at steady state. eGFR (NON -Jessie n) >60 >60 mL/min/1.7 3m2 10/13/2017 4:37 PM EDT [facility] Comment: Values under 60mL/min/1.73m2 may indicate CKD if noted for more than 3 months. eGFR is only valid if creatinine is at steady state. Blood specimen (specimen) Venipuncture / Unknown 10/13/2017 4:07 PM EDT 10/13/2017 4:09 PM EDT Luis Mederso MD LAB BLOOD ORDERABLES Final Resu lt [facility] [address] [place] [address], [facility] [phone] from Last 3 Months or Most Recently Relevant to Health Maintenance Insurance [id number]-[id number] MEDICAID [id number] MEDICAID [id number] MEDICAID Care Teams Principal Librarian Relationship Specialty Start Date End Date Halima Hickman MD PCP - General 10/13/17
--- OUTSIDE RECORDS SUMMARY | 2025-02-12 03:07 | XMS_ITS | Encounter Summary ---
Author Organization [employer] Address 75 [facility] 7t [place] [address] Care Team Providers Care Heating Fixture Tender Name Role Phone Lilian Mcclellan ENTRY LEVEL ELECTRICAL ENGINEER Primary Care Provider [phone] Mono Huggins ENTRY LEVEL ELECTRICAL ENGINEER Unavailable Unavailable Reason for Visit * Reason Onset Date Comments Results 02/08/2025 Encounter Details Date Type Department Care Team ([facility] st Contact Info) Description 02/08/2025 Results Follow-Up [facility] 230 [place] [address] Jaqueline Parikh ANP [address] [place] [address] XR Chest 2 Views Social History Tobacco [...] encounter Miscellaneous Notes * Telephone Encounter - Perla Priest RN - 02/09/2025 10:04 AM EST Telephone call placed to pt utilizing S #[id number] regarding below results. Informed chest x-ray showed no pneumonia which is good. Advised to continue antibiotics and prednisone as Rxd. Pt heard to sena on the phone. She reports feels the same as yesterday. Pt given advised ot go to the ED ifvery SOB or feels like she is gasping for air. If taking medication with no improvement by the end of this week, let us know or come to [facility]. Pt agrees with plan. * Telephone Encounter - Perla Priest RN - 02/09/2025 10:00 AM EST ----- Message from Jaqueline Parikh sent at 02/08/2025 4:36 PM EST ----- No pneumonia, recommend continue antibiotics and prednisone as Rx'd today ----- Message ----- From: Mariela Yee Results In Sent: 02/08/2025 1:47 PM EST To: SHEILA Max * Result Encounter Note - SHEILA Max - 02/08/2025 4:36 PM EST No pneumonia, recommend continue antibiotics and prednisone as Rx'd today documented in this encounter Plan of Treatment Upcoming Encounters Date Type Department Care Team (Late st Contact Info) Description 03/03/2025 2:45 PM EST Office Visit [facility] [address] [place] [address] [facility] [address] [place] [address] 05/21/2025 3:15 PM EDT Office Visit [address] [address] Halima Hickman MD [address] [place] [address] documented as of this encounter Visit Diagnoses Not on filedocumented in this encounter Additional Health Concerns Assessment Noted Time PHQ-9 Depression Total Score: 0 08/25/19 25 9:53 AM EDT documented as of this encounter Care Teams Heating Fixture Tender Relationship Specialty Start Date End Date Lilian Mcclellan [facility] [address] [place] [address] PCP - General Family Medicine 04/26/22 Mono Huggins FNP [address] [place] [address] Nurse Practitioner Family Medicine 01/21/23 Maureen Gastelum Law ClerkFloor And Wall Applier Liquid 02/11/24 documented as of this encounter
--- OUTSIDE RECORDS SUMMARY | 2025-02-12 03:07 | XMS_ITS | Encounter Summary ---
Author Organization [employer] Address [address] [facility] 7t [place] [address] Care Team Providers Care Spar Machine Operator Name Role Phone [facility] Primary Care Provider [phone] Mono Huggins Unavailable Unavailable Reason for Visit * Reason Onset Date Comments asthma status check 02/08/2025 Encounter Details Date Type Department Care Team ([facility] st Contact Info) Description 02/08/2025 Telephone [facility] [address] [place] [address] [place] [facility] 230 [place] [address] asthma status check Social History Tobacco Use [...] 10:26 AM EST TC placed to patient [phone] in regards to below message. Patient reports she was able to schedule a f/u appointment on 02/16/25 at 3:30PM with pulmonology. Patient reports she was able to p/u prednisone and albuterol solution for nebulizer however was unable to obtain Trelegy (requires PA-MARIANNE c onfirmed with [facility] pharmacy). Patient reports she has completed prednisone [...] will be re-evaluated today. ----- Message from [facility] sent at 02/07/2025 8:50 PM EST ----- [...] Description 03/03/2025 2:45 PM EST Office Visit [address] [address] Lilian Mcclellan [address] [address] 05/21/2025 3:15 PM EDT Office Visit [address] [address] Halima Hickman MD [address] [place] [address] documented as of this encounter Visit Diagnoses Not on filedocumented in this encounter Additional Health Concerns Assessment Noted Time PHQ-9 Depression Total Score: 0 08/25/19 25 9:53 AM EDT documented as of this encounter Care Teams Spar Machine Operator Relationship Specialty Start Date End Date Lilian Mcclellan FNP [address] [place] [address] PCP - General Family Medicine 04/26/22 Mono Huggins FNP [address] [place] [address] Nurse Practitioner Family Medicine 01/21/23 Maureen Gastelum Hydro Electric Station OperatorHoop Punch Operator Helper 02/11/24 documented as of this encounter
--- NOTE | 2025-02-12 04:26 | ECG_ITS ---
Test Reason : SYNCOPE Blood Pressure : */* mmHG Vent. Rate : 63 BPM Atrial Rate : 63 BPM P-R Int : 142 ms QRS Dur : 90 ms QT Int : 414 ms P-R-T Axes : 30 32 35 degrees QTcB Int : 423 ms Normal sinus rhythm Normal ECG When compared with ECG of 30-Oct-2023 15:08, No significant change was found Referred By: Ambika Naranjo Electronically Signed By: Royce Dunham
--- NOTE | 2025-02-12 04:30 | ED.GENADULT ---
HPI - General Adult General Chief complaint: General Medical Stated complaint: LEFT KNEE PAIN AFTER FALL, NAUSEA, ABD PAIN Time Seen by Provider: 02/12/25 04:17 Source: patient and EMS Mode of arrival: EMS Limitations: no limitations History of Present Illness ED Provider: Dr. Ambika Naranjo HPI narrative: patient comes to the emergency room complaining of 2 days of nausea vomiting and diarrhea. Patient states that she has been taking antibiotics for a URI, just finished taking them. Patient states that she has been going multiple times to the bathroom with both vomiting and diarrhea. Patient states that she got up from bed, went to the bathroom, had a watery bowel movement, on her way back to her bedroom, patient states that she was being very lightheaded. Patient believes that she passed out and then some how she ended up waking up when she was in bed already. Patient believes her family have her up but she does not remember. Patient denies any seizure-like activities. Patient denies chest pain or shortness of breath. Patient complaining of left leg pain Related Data Home Medications ?Medication ?Instructions ?Recorded ?Confirmed clonazepam 0.5 mg tablet 0.5 mg PO BEDTIME 10/17/21 10/30/23 hydroxyzine HCl 25 mg tablet 25 mg PO BEDTIME anxiety 10/17/21 10/30/23 nebulizers 11/28/21 CPAP (CPAP Machine/Device) 04/06/22 duloxetine 30 mg capsule,delayed 30 mg PO BID 06/27/22 10/30/23 release omega-3 300 mg-dha 120 mg-epa 180 1 cap PO DAILY 06/27/22 10/30/23 mg-fish oil 1,000 mg capsule azelastine 137 mcg (0.1 %) nasal 2 spray intranasal BID 10/30/23 10/30/23 spray clonazepam 0.5 mg tablet 0.5 mg PO DAILY PRN anxiety 10/30/23 10/30/23 lidocaine 5 % topical patch 1 patch topical DAILY PRN Pain 10/30/23 10/30/23 (Lidoderm) metoprolol tartrate 50 mg tablet 50 mg PO BID 10/30/23 10/30/23 levalbuterol tartrate 45 1 puff inhalation Q4-6H PRN 12/03/23 mcg/actuation aerosol inhaler (Xopenex HFA) Previous Rx's ?Medication ?Instructions ?Recorded omalizumab 150 mg/mL subcutaneous 150 mg subcut Q2W 4 weeks #2 mL 10/18/22 syringe (Xolair) furosemide 20 mg tablet (Lasix) 20 mg PO DAILY 7 days #7 tabs 05/27/23 albuterol sulfate 2.5 mg/3 mL 2.5 mg (3 mL) inhalation Q6H PRN 10/01/23 (0.083 %) solution for nebulization for wheezing 30 days #180 mL yvlcurrfez-ycnzcbcsbxate-inkjcduk 1 tab PO Q4H PRN Headache #20 tabs 11/01/23 50 mg-325 mg-40 mg tablet guaifenesin 600 mg tablet, 600 mg PO BID #10 tabs 11/01/23 extended release 12 hr (Mucinex) budesonide 0.5 mg/2 mL suspension 0.5 mg (2 mL) inhalation BID 30 12/03/23 for nebulization days #120 mL fclxanvp-kovhmabrg-gclopqxu 3.5 1 drp ophthalmic (eye) Q12H 10 02/03/24 mg/mL-10,000 unit/mL-0.1% eye drops days #5 mL epinephrine 0.3 mg/0.3 mL 0.3 mg (0.3 mL) IM Q10M PRN 03/03/24 injection, auto-injector (EpiPen anaphylaxis 30 days #2 ea 2-Rell) acetaminophen 500 mg capsule 1,000 mg (2 x 500 mg) PO Q8H PRN 05/29/24 fever or pain #14 caps cetirizine 10 mg tablet 10 mg PO DAILY PRN allergy 05/29/24 symptoms #14 tabs ibuprofen 400 mg tablet 400 mg PO Q6H PRN pain #14 tabs 05/29/24 ipratropium bromide 17 2 puff inhalation Q8H #12.9 grams 06/02/24 mcg/actuation HFA aerosol inhaler (Atrovent HFA) codeine 10 mg-guaifenesin 100 mg/5 10 ml PO Q6H PRN cough #237 mL 06/08/24 mL oral liquid tobramycin 0.3 % eye drops 1 drp ophthalmic (eye) Q4H #5 mL 06/08/24 levocetirizine 5 mg tablet 5 mg PO DAILY #30 tabs 06/16/24 fluticasone furoate 200 1 ea inhalation DAILY #60 ea 06/24/24 mcg-vilanterol 25 mcg/dose inhalation powder (Breo Ellipta) umeclidinium 62.5 mcg/actuation 1 inh inhalation DAILY #30 ea 06/24/24 blister powder for inhalation (Incruse Ellipta) bisacodyl 5 mg tablet,delayed 10 mg (2 x 5 mg) PO BEDTIME 2 days 07/15/24 release (Dulcolax (bisacodyl)) #4 tabs jxgbnw-tmyxmigv-emqjmrk 2 cap PO BID #120 caps 07/15/24 (pork)36,000-114,000-180k unit capsule,del rel (Creon) pantoprazole 40 mg tablet,delayed 40 mg PO BID #60 tabs 07/15/24 release peg 3350-electrolytes 236 240 ml PO Q10M 1 day #4,000 mL 07/15/24 gram-22.74 gram-6.74 gram-5.86 gram solution (Golytely) simethicone 125 mg chewable tablet 125 mg PO BID-QID PRN abdominal 07/15/24 (Gas Relief (simethicone)) distention #90 tabs erythromycin 5 mg/gram (0.5 %) eye 0.5 inch ophthalmic (eye) QID 5 12/11/24 ointment days #3.5 grams famotidine 40 mg tablet (Pepcid) 40 mg PO DAILY 30 days #30 tabs 12/23/24 sucralfate 1 gram tablet 2 g (2 x 1 gram) PO DAILY #60 tabs 02/02/25 Allergies Allergy/AdvReac Type Severity Reaction Status Date / Time Penicillins Allergy Severe hives, Verified 02/12/25 02:26 swelling pollen extracts (POLLEN) Allergy Severe ITCHING Verified 02/12/25 02:26 peanut (PEANUT) Allergy Intermediate RASH Verified 02/12/25 02:26 plum Allergy Severe swelling Uncoded 07/15/24 11:27 Review of Systems Review of Systems: Constitutional : No Weight loss, No Fever, No Chills, No Night Sweats, No Fatigue, No Malaise ENT/Mouth : No Hearing loss, No Ear Pain, No Nasal Congestion, No Sinus Pain, No Hoarseness, No sore throat, No Rhinorrhea, No Swallowing Difficulty Eyes: No Eye Pain, No Swelling, No Redness, No Foreign Body, No Discharge, No Vision Changes Cardiovascular : No Chest Pain, No SOB, No Dyspnea on Exertion, No Orthopnea, No Edema, No Palpitations Respiratory : No Cough, No Sputum, No Wheezing, No Smoke Exposure, No Dyspnea Gastrointestinal : complaining of nausea vomiting diarrhea, No Constipation, No abdominal Pain, No Hematochezia, No Melena Genitourinary : no irregular bleeding, No Dysuria, No Urinary Frequency, No Hematuria, No Urinary Incontinence, No Urgency, No Flank Pain, No Urinary Flow Changes, No Hesitancy Musculoskeletal : complaining of left leg pain on the lateral aspect, No joint pain, No Myalgias, No Joint Swelling Skin : No Skin Lesions, No rash Neuro : No Weakness, No Numbness, No Paresthesias, complaining of 1 episode of loss of consciousness,, No Dizziness, No Headache Psych : No Anxiety/Panic, No Depression, No SI/HI/AH/VH, No Social Issues, Heme/Lymph: No Bruising, No Bleeding,No Lymphadenopathy Endocrine : No Polyuria, No Polydipsia, No Temperature Intolerance [facility] Past Medical History Medical History COVID-19 Personal history of nicotine dependence Morbid obesity GEORGIE (obstructive sleep apnea) (~2007) Tubular adenoma of colon (~2014) Chronic allergic rhinitis Bronchitis Asthma Surgical History History of endometrial ablation History of colonoscopy History of section Family History Family History Father No problems noted. Mother Family history of cancer Brother Lung cancer, Onset Age: 40 Maternal Aunt Lymphoma Family/Other Breast cancer Social History Social History Household Members: Children Housing: House Do you presently have visiting nurse or other home services: No Alcohol intake: never Patient Tobacco Use Status: Never used Tobacco Tobacco use type: Cigarette Years Smoked: (onset 22yo, 1ppd x 39yrs, 35PYH - quit 2021) Smoked in Last 30 Days: No e-Cigarette/Vaping Use: Never Used Second Hand Smoke Exposure: No Use of substances other than those prescribed or required for medical reasons: No Any prior treatment program specific to substance use: No Advance Directives: Yes Advance Directives on File: Yes Advance Directives Date on File: 11/04/23 Do you have a plan to hurt others: No Plan Patient : No Current occupational status: disabled 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 Oriented X3. No acute distress. Eyes: Pupils equal, round and reactive to light. ENT: Pharynx normal. Neck: Normal inspection. Neck supple. No lymph nodes noted. No crepitus CVS: Normal heart rate and rhythm. Pulses normal. Normal S1 and S2 Respiratory: No respiratory distress. Breath sounds normal. No Wheezing. No rales Abdomen: Soft and nontender. No rigidity. No distention. Skin: Skin warm and dry. Normal skin color. Normal skin turgor. mild ecchymosis in the lateral aspect of the left leg Extremities: No lower extremity edema. No Lacerations. No Rash Neuro: Oriented X 3. No motor deficit. No sensory deficit. Moving all extremities. No slurred speech. CN 2 through 12 grossly intact Psych: calm, cooperative, normal affect Vital Signs: Vital Signs - 24 hr 02/12/25 02:17 02/12/25 03:49 02/12/25 04:38 Temperature 98.2 F 97.5 F Pulse Rate 71 71 66 Respiratory Rate 18 14 Blood Pressure 117/62 118/65 128/74 Pulse Oximetry 96 97 Oxygen Delivery Method Room Air Room Air 02/12/25 04:38 02/12/25 04:39 02/12/25 06:00 Temperature Pulse Rate 71 75 75 Respiratory Rate 20 Blood Pressure 133/72 122/64 122/64 Pulse Oximetry 93 Oxygen Delivery Method Room Air 02/12/25 08:10 02/12/25 10:08 Temperature 98.4 F 98.4 F Pulse Rate 86 82 Respiratory Rate 18 16 Blood Pressure 121/74 124/53 L Pulse Oximetry 95 95 Oxygen Delivery Method Room Air Room Air BMI result Body Mass Index 41.0 Course Course Course Narrative: patient reports diarrhea after a course of antibiotics, vomiting. patient reports not being able to keep up with fluids due to nausea and vomiting at on top of the diarrhea, no blood in the stool reports a syncopal episode after using the bathroom patient receiving IV fluids, Zofran, loperamide Also, patient complaining of headache. Patient is unsure if she hit her head when she passed out. Patient complaining of a headache. Patient complaining now of abdominal pain, Bilateral ear pain, shortness of breath, states that her oxygen drops Reevaluation(s) Reevaluation #1: 7:02 AM 02/12/2025 (Dr. Gato Melendez): I, Dr. Melendez have take over the care of this patient, I reviewed pertinent blood work and imaging, re-evaluated the patient when appropriate. Reviewed blood work is reassuring, signed out to me multiple CTs, patient has had multiple concerns Medications Administered Discontinued Medications Generic Name Dose Route Start Last Admin Trade Name Freq PRN Reason Stop Dose Admin Al Hydroxide/Mg Hydroxide 30 ml 02/12/25 04:29 02/12/25 04:53 Magnesium Hydrox/Alum Hydrox 30 Ml Oral.Susp PO 02/12/25 04:30 30 ml ONCE ONE Administration Lactated Ringer's 1,000 mls @ 999 mls/hr 02/12/25 04:30 02/12/25 08:47 Lr IV 02/12/25 06:30 Infused .Q1H1M LUCIANA Infusion Lactated Ringer's 1,000 mls @ 999 mls/hr 02/12/25 07:00 02/12/25 08:47 Lr IV 02/12/25 08:00 999 mls/hr .Q1H1M LUCIANA Administration Iohexol 100 ml 02/12/25 10:01 02/12/25 10:11 Iohexol 350 Mg/Ml 100 Ml Infus..Btl IV 02/12/25 10:02 85 ml ONCE ONE Administration Lidocaine HCl 15 ml 02/12/25 04:29 02/12/25 04:53 Lidocaine Hcl Viscous 2 % 15 Ml Solution MUCOUS MEM 02/12/25 04:30 15 ml ONCE ONE Administration Loperamide HCl 4 mg 02/12/25 04:26 02/12/25 04:52 Loperamide Hcl 2 Mg Capsule PO 02/12/25 04:27 4 mg ONCE ONE Administration Ondansetron HCl 4 mg 02/12/25 04:29 02/12/25 05:56 Ondansetron Hcl 4 Mg/2 Ml Vial IVPUSH 02/12/25 04:30 4 mg ONCE ONE Administration Medical Decision Making Medical Decision Making MDM Narrative: My interpretation of EKG: Normal sinus rhythm, heart rate 63, no ST segment depression or elevation, no T-wave inversion, QTC 423 orthostatic vitals were negative patient's white blood cell count 21.8. Patient has a leukocytosis in the past. according to the patient's nurse, patient has had intermittent oxygen desaturations to the high 80s. However, patient jumps back up to Oxygen saturation in the mid 90s. - Back in October of 2023, patient had similar presentation. However, patient did have syncopal episode and URI symptoms, patient was diagnosed with pneumonia. - Overall, today patient has had multiple complaints. CT scan to rule out pulmonary embolism is pending. CT scan of the abdomen pending. - Sign-out given to my colleague Dr. Melendez 11:48 AM 02/12/2025 (Dr. Gato Melendez): MPRESSION: 1. There is no evidence of pulmonary embolus. There is no evidence of acute aortic syndrome. 2. There are consolidative changes in the left lower lobe consistent with bronchopneumonia. 3. There is diffuse thickening of the small airways in keeping with inflammatory/infectious airways disease. 4. There is mild cardiac enlargement. 5. The esophagus is diffusely patulous. 6. Additional ancillary findings as discussed in the body of the report. Patient recently finished a course of azithromycin, has a history of asthma, has had a few episodes of hypoxia in the ER, we will admit her she failed antibiotic management on outpatient basis Differential Diagnosis Differential Diagnoses: The differential diagnosis associated with the presentation includes ( C diff colitis, gastroenteritis, arrhythmias, pulmonary embolism, head injury) Admission/Observation Consideration of admission/observation: Escalation of care including admission/observation considered Lab Data [facility] Lab Attestation statement: I reviewed the patient's lab results. 02/12/25 04:56 02/12/25 04:56 Labs: Lab Results 02/12/25 02/12/25 02/12/25 Range/Units 04:44 04:56 06:10 WBC 21.8 H (4.8-10.8) X10*3/uL RBC 4.05 L (4.20-5.50) X10*6/uL Hgb 11.8 L (12.0-16.0) g/dl Hct 35.5 L (37.0-47.0) % MCV 87.7 (80.0-98.0) fL MCH 29.1 (27.0-33.0) pg MCHC 33.2 (31.0-35.0) g/dl RDW 14.5 (11.0-16.0) % Plt Count 331 (160-400) X10*3/uL MPV 10.7 (9.4-12.3) fL Immature Gran % (Auto) 0.5 H (0.0-0.4) % Neut % (Auto) 87.2 H (45-73) % Lymph % (Auto) 9.0 L (20-40) % Knott % (Auto) 3.1 (2-11) % Eos % (Auto) 0.0 (0-4) % Baso % (Auto) 0.2 (0-2) % Lymph # (Auto) 2.0 (1.2-4.9) X10*3/uL Knott # (Auto) 0.7 (0.1-1.2) X10*3/uL Eos # (Auto) 0.0 (0.0-0.4) X10*3/uL Baso # (Auto) 0.0 (0.0-0.2) X10*3/uL Abs Immat Gran (auto) 0.11 H (0.00-0.03) X10*3/uL Absolute Neuts (auto) 19.0 H (2.0-8.3) x10*3/uL Absolute Nucleated RBC 0.000 (0.0-0.012) X10*3/uL Nucleated RBC % (auto) 0.0 (0.0-0.2) /100WBC Sodium 140 (135-145) mmol/L Potassium 4.3 (3.3-5.1) mmol/L Chloride 107 (96-108) mmol/L Carbon Dioxide 24 (22-29) mmol/L Anion Gap 13 (12-20) BUN 18 H (9-16) mg/dL Creatinine 0.87 (0.5-1.4) mg/dL Estim Creat Clear Calc 66.3 Estimated GFR > 60 Random Glucose 97 (60-115) mg/dL Calcium 9.0 D (8.4-10.2) mg/dL Magnesium 2.2 (1.6-2.6) mg/dL Total Bilirubin 0.7 (0.0-1.0) mg/dL Direct Bilirubin 0.2 (0.0-0.5) mg/dL AST 44 H (5-31) U/L ALT 18 (0-31) U/L Alkaline Phosphatase 67 (39-117) U/L Troponin I High Sens 2.7 (<3.5-17.0) ng/L Total Protein 7.5 (6.5-8.0) g/dL Albumin 3.9 (3.5-5.0) g/dL Lipase 43 (8-78) U/L Urine Color Yellow Urine Appearance Clear Urine pH 6.0 (5.0-9.0) Ur Specific Roann >= 1.030 H (1.005-1.025) Urine Protein 30 (1+) H (Neg-Trace) mg/dL Urine Glucose (UA) Negative (Negative) mg/dL Urine Ketones Trace (Negative) mg/dL Urine Blood Negative (Negative) Urine Nitrite Negative (Negative) Ur Leukocyte Esterase Trace H (Negative) Urine RBC 0-2 (0-2) /HPF Urine WBC 11-20 H (0-5) /HPF Ur Squamous Epith Cells 6-10 (0-2) /HPF Urine Bacteria Trace (None Seen) Hyaline Casts 0-2 (0-2) /LPF Influenza Type A (PCR) NEGATIVE (Negative) Influenza Type B (PCR) NEGATIVE (Negative) RSV RNA Qual (PCR) NEGATIVE (Negative) SARS-CoV-2 RNA (RT-PCR) NEGATIVE (Negative) Critical Care Time Critical Care Time Critical Care Time: Yes Total Critical Care Time: 50 Attestation: I have personally provided critical care time. Time includes review of lab data, radiology results, discussion with consultants, and monitoring for potential decompensation. Intervention performed as documented. Discharge Plan Discharge Clinical Impression: Nausea vomiting and diarrhea, Syncope, Contusion of left leg, Pneumonia Prescriptions: No Action Xolair 150 mg/mL syringe 150 mg subcut Q2W 28 Days Qty: 2 11RF Rx Instructions: On Fridays Next Dose 11/01/23 epinephrine [EpiPen 2-Rell] 0.3 mg/0.3 mL auto-injector 0.3 mg IM Q10M PRN (Reason: anaphylaxis) 30 Days Qty: 2 6RF Rx Instructions: for 2 doses Atrovent HFA 17 mcg/actuation HFA aerosol inhaler 2 puff INHALATION Q8H Qty: 12.9 11RF levocetirizine 5 mg tablet 5 mg PO DAILY Qty: 30 11RF Incruse Ellipta 62.5 mcg/actuation blister with device 1 inh INHALATION DAILY Qty: 30 11RF fluticasone furoate-vilanterol [Breo Ellipta] 200-25 mcg/dose blister with device 1 ea INHALATION DAILY Qty: 60 11RF famotidine [Pepcid] 40 mg tablet 40 mg PO DAILY 30 Days Qty: 30 4RF sucralfate 1 gram tablet 2 g PO DAILY Qty: 60 3RF erythromycin 5 mg/gram (0.5 %) ointment 0.5 inch ophthalmic (eye) QID 5 Days Qty: 3.5 0RF clonazepam 0.5 mg tablet 0.5 mg PO DAILY PRN (Reason: anxiety) azelastine 137 mcg (0.1 %) spray,non-aerosol 2 spray intranasal BID lidocaine [Lidoderm] 5 % adhesive patch,medicated 1 patch topical DAILY PRN (Reason: Pain) Rx Instructions: leave on most painful area for up to 12 hrs metoprolol tartrate 50 mg tablet 50 mg PO BID loxanfhjqi-oavjwpzfwllxo-nuna 50-325-40 mg Tablet 1 tab PO Q4H PRN (Reason: Headache) Qty: 20 0RF guaifenesin [Mucinex] 600 mg Tablet Extended Release 12hr 600 mg PO BID Qty: 10 0RF acetaminophen 500 mg capsule 1,000 mg PO Q8H PRN (Reason: fever or pain) Qty: 14 0RF ibuprofen 400 mg tablet 400 mg PO Q6H PRN (Reason: pain) Qty: 14 0RF cetirizine 10 mg tablet 10 mg PO DAILY PRN (Reason: allergy symptoms) Qty: 14 0RF codeine-guaifenesin 10-100 mg/5 mL liquid 10 ml PO Q6H PRN (Reason: cough) Qty: 237 0RF tobramycin 0.3 % drops 1 drp ophthalmic (eye) Q4H Qty: 5 0RF clonazepam 0.5 mg tablet 0.5 mg PO BEDTIME (DME) CPAP Machine/Device Device See Rx Instructions .ROUTE Rx Instructions: As directed hydroxyzine HCl 25 mg tablet 25 mg PO BEDTIME (DME) [place] [facility] [place] .[place]OUTE Rx Instructions: As directed duloxetine 30 mg capsule,delayed release(DR/EC) 30 mg PO BID omega 0-gtd-wsl-fish oil 300 mg (120 mg- 180mg)-1,000 mg capsule 1 cap PO DAILY furosemide [Lasix] 20 mg tablet 20 mg PO DAILY 7 Days Qty: 7 0RF levalbuterol tartrate [Xopenex HFA] 45 mcg/actuation HFA aerosol inhaler 1 puff inhalation Q4-6H PRN budesonide 0.5 mg/2 mL suspension for nebulization 0.5 mg inhalation BID 30 Days Qty: 120 11RF pantoprazole 40 mg tablet,delayed release (DR/EC) 40 mg PO BID Qty: 60 6RF Creon 36,000-114,000- 180,000 unit capsule,delayed release(DR/EC) 2 cap PO BID Qty: 120 6RF peg 3350-electrolytes [Golytely] 236-22.74-6.74 -5.86 gram recon soln 240 ml PO Q10M 1 Days Qty: 4000 0RF Rx Instructions: until fecal effluent is clear; do not exceed a total volume of 2,000 mL bisacodyl [Dulcolax (bisacodyl)] 5 mg tablet,delayed release (DR/EC) 10 mg PO BEDTIME 2 Days Qty: 4 0RF simethicone [Gas Relief (simethicone)] 125 mg tablet,chewable 125 mg PO BID-QID PRN (Reason: abdominal distention) Qty: 90 6RF neomycin-polymyxin B-dexameth 3.5mg/mL-10,000 unit/mL-0.1 % drops,suspension 1 drp ophthalmic (eye) Q12H 10 Days Qty: 5 0RF albuterol sulfate 2.5 mg /3 mL (0.083 %) solution for nebulization 2.5 mg inhalation Q6H PRN (Reason: for wheezing) 30 Days Qty: 180 11RF Print Language: Norwegian
[2025-02-12] MEDS: Magnesium Hydrox/Alum Hydrox 30 ML ORAL.SUSP PO (04:53)
[2025-02-12] MEDS: Lidocaine HCl Viscous 2 % 15 ML SOLUTION MUCOUS MEM (04:53)
[2025-02-12 05:25] LABS: Resp Syncy Virus RNA Qual PCR NEGATIVE (Negative); SARS COV2 PCR INHOUSE NEGATIVE (Negative)
[2025-02-12] MEDS: Lactated Ringers 1,000 ML 999 ML IV ×3 (06:02→08:47)
[2025-02-12 06:14] LABS: MANUAL DIFF FLAG NO
[2025-02-12 06:22] LABS: Appearance Urine Clear; Glucose Urine UA Negative (Negative); PH 6.0 (5.0-9.0); Specific Gravity - Urine >= 1.030 (1.005-1.025); UMIC TRIGGER UACC YES
[2025-02-12 06:22] LABS: Hematocrit 35.5 % (37.0-47.0); Hemoglobin 11.8 g/dl (12.0-16.0); Imm Gran Abs Auto 0.11 X10*3/uL (0.00-0.03); Imm Gran Pct Auto 0.5 % (0.0-0.4); Lymphocytes Absolute Auto 2.0 X10*3/uL (1.2-4.9); Mean Corpuscular HGB Conc 33.2 g/dl (31.0-35.0); Mean Corpuscular Hemoglobin 29.1 pg (27.0-33.0); Mean Corpuscular Volume 87.7 fL (80.0-98.0); NRBC Abs Auto 0.000 X10*3/uL (0.0-0.012); NRBC Pct Auto 0.0 /100WBC (0.0-0.2); Platelet Count 331 X10*3/uL (160-400); Red Blood Count 4.05 X10*6/uL (4.20-5.50); White Blood Count 21.8 X10*3/uL (4.8-10.8)
[2025-02-12 06:24] LABS: UACC Culture Trigger YES
[2025-02-12 06:32] LABS: Alanine Aminotransferase 18 U/L (0-31); Albumin Level 3.9 g/dL (3.5-5.0); Alkaline Phosphatase 67 U/L (39-117); Anion Gap 13 (12-20); Aspartate Amino Transferase 44 U/L (5-31); Blood Urea Nitrogen 18 mg/dL (9-16); Calcium 9.0 mg/dL (8.4-10.2); Carbon Dioxide 24 mmol/L (22-29); Chloride 107 mmol/L (96-108); Creatinine Clr Calc Pharmacy 66.3; Estimated Glomerular Filt Rate > 60; Lipase 43 U/L (8-78); Magnesium 2.2 mg/dL (1.6-2.6); Potassium 4.3 mmol/L (3.3-5.1); Sodium 140 mmol/L (135-145); Total Protein 7.5 g/dL (6.5-8.0)
[2025-02-12 06:38] LABS: Troponin-I High Sensitivity 2.7 ng/L (<3.5-17.0)
[2025-02-12] MEDS: iohexoL 350 MG/ML 100 ML INFUS..BTL IV (10:11)
--- NOTE | 2025-02-12 13:13 | PM.IMHP ---
History of Present Illness Date of Service: 02/12/25 Chief Complaint: Syncope/SOB 64-year-old female patient with past medical history significant for severe persistent asthma, obstructive sleep apnea on CPAP, hypertension, palpitation GERD presented to [place] ED with 2 days' history of nausea, vomiting and diarrhea. Patient was seen by her PCP 1 week ago due to symptoms of shortness of breath and was placed on prednisone, azithromycin and cough medication. Patient continued her home nebulizers and CPAP but was not feeling better and subsequently developed nausea, abdominal pain and profuse diarrhea.Patient states that last night she got up from bed, went to the bathroom, had a watery bowel movement, on her way back to her bedroom, patient felt lightheaded and dizzy. Patient believes that she passed out and then she remembers waking up in her bed and her son at bedside calling for ambulance.Patient complaining of left leg pain after fall. At present patient denies fevers, no nausea, no vomiting or diarrhea. She states her diarrhea improved after taking antidiarrheal last night. Her younger son has URI symptoms, no recent history of travel, no history of seizure. Review of Systems Review of Systems: General no headache, no dizziness , CVS no chest pain, no palpitation. Respiratory , shortness of breath Gastrointestinal mild epigastric discomfort no urgency, no frequency. [facility] Medical History COVID-19 Personal history of nicotine dependence Morbid obesity GEORGIE (obstructive sleep apnea) (~2007) Tubular adenoma of colon (~2014) Chronic allergic rhinitis Bronchitis Asthma Family History Father No problems noted. Mother Family history of cancer Brother Lung cancer, Onset Age: 40 Maternal Aunt Lymphoma Family/Other Breast cancer Surgical History History of endometrial ablation History of colonoscopy History of section Social History Household Members: Children Housing: House Do you presently have visiting nurse or other home services: No Alcohol intake: never Patient Tobacco Use Status: Never used Tobacco Tobacco use type: Cigarette Years Smoked: (onset 22yo, 1ppd x 39yrs, 35PYH - quit 2021) Smoked in Last 30 Days: No e-Cigarette/Vaping Use: Never Used Second Hand Smoke Exposure: No Use of substances other than those prescribed or required for medical reasons: No Any prior treatment program specific to substance use: No Advance Directives: Yes Advance Directives on File: Yes Advance Directives Date on File: 11/04/23 Do you have a plan to hurt others: No Plan Patient : No Current occupational status: disabled 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 Meds Allergies Allergy/AdvReac Type Severity Reaction Status Date / Time Penicillins Allergy Severe hives, Verified 02/12/25 02:26 swelling pollen extracts (POLLEN) Allergy Severe ITCHING Verified 02/12/25 02:26 peanut (PEANUT) Allergy Intermediate RASH Verified 02/12/25 02:26 plum Allergy Severe swelling Uncoded 07/15/24 11:27 Active Medications: Current Medications Acetaminophen (Acetaminophen 325 Mg Tablet) 650 mg PO Q6H PRN PRN Reason: Pain, Mild 1-3,fever,headache Al Hydroxide/Mg Hydroxide (Magnesium Hydrox/Alum Hydrox 30 Ml Oral.Susp) 30 ml PO Q4H PRN PRN Reason: Heartburn Calcium Carbonate (Calcium Carbonate 750 Mg Tab.Chew) 750 mg PO Q4H PRN PRN Reason: Heartburn Enoxaparin Sodium (Enoxaparin Sodium 40 Mg/0.4 Ml Syringe) 40 mg SUBCUT Q24H LUCIANA Ceftriaxone Sodium 1 gm/ (Sodium Chloride) 50 mls @ 100 mls/hr IV Q12H FOR[facility], [facility] Last Admin: 02/12/25 12:12 Dose: 100 mls/hr Doxycycline Hyclate 100 mg/ (Sodium Chloride) 250 mls @ 166.67 mls/hr IV ONCE ONE Stop: 02/12/25 13:23 Last Admin: 02/12/25 12:16 Dose: 166.67 mls/hr Magnesium Hydroxide (Milk Of Magnesia 30 Ml Oral.Susp) 30 ml PO DAILY PRN PRN Reason: Constipation Melatonin (Melatonin 3 Mg Tablet) 6 mg PO BEDTIME PRN PRN Reason: Insomnia Ondansetron HCl (Ondansetron Hcl 4 Mg/2 Ml Vial) 4 mg IVPUSH Q8H PRN PRN Reason: Nausea and Vomiting Polyethylene Glycol (Polyethylene Glycol 3350 17 Gm Powd.Pack) 17 gm PO DAILY PRN PRN Reason: Constipation Sodium Chloride (0.9 % Sodium Chloride Flush 3 Ml Syringe) 3 ml IVFLUSH QSHIFT FOR[facility], [facility] Home Medications ?Medication ?Instructions ?Recorded ?Confirmed ?Last Taken ?Type clonazepam 0.5 mg tablet 0.5 mg PO BEDTIME 10/17/21 10/30/23 10/29/23 History hydroxyzine HCl 25 mg tablet 25 mg PO BEDTIME anxiety 10/17/21 10/30/23 10/29/23 History nebulizers 11/28/21 Unknown History CPAP (CPAP Machine/Device) 04/06/22 Unknown History duloxetine 30 mg capsule,delayed 30 mg PO BID 06/27/22 10/30/23 10/29/23 History release omega-3 300 mg-dha 120 mg-epa 180 1 cap PO DAILY 06/27/22 10/30/23 10/29/23 History mg-fish oil 1,000 mg capsule azelastine 137 mcg (0.1 %) nasal 2 spray intranasal BID 10/30/23 10/30/23 10/29/23 History spray clonazepam 0.5 mg tablet 0.5 mg PO DAILY PRN anxiety 10/30/23 10/30/23 Unknown History lidocaine 5 % topical patch 1 patch topical DAILY PRN Pain 10/30/23 10/30/23 Unknown History (Lidoderm) metoprolol tartrate 50 mg tablet 50 mg PO BID 10/30/23 10/30/23 10/29/23 History levalbuterol tartrate 45 1 puff inhalation Q4-6H PRN 12/03/23 Unknown History mcg/actuation aerosol inhaler (Xopenex HFA) azithromycin 250 mg tablet 250 mg PO DAILY 02/12/25 Unknown History benzonatate 200 mg capsule 200 mg PO TID PRN cough 02/12/25 Unknown History ibuprofen 600 mg tablet 600 mg PO Q8H PRN Pain 02/12/25 Unknown History pantoprazole 40 mg tablet,delayed 40 mg PO BID@0630,1630 02/12/25 Unknown History release prednisone 20 mg tablet See Taper PO DIRECTED 02/12/25 Unknown History Physical Exam Vital Signs and Narrative: Vital Signs: Last Vital Signs Temp 98.4 F 02/12/25 10:08 Pulse 84 02/12/25 12:23 Resp 18 02/12/25 12:18 BP 116/49 L 02/12/25 12:18 Pulse Ox 95 02/12/25 12:23 O2 Del Method Nasal Cannula 02/12/25 12:23 O2 Flow Rate 2 02/12/25 12:23 BMI result Body Mass Index 41.0 Const: Other: General awake alert x3 sick appearing Neck supple no JVD. CVS regular rate rhythm, Respiratory lungs coarse breath sounds. Gastrointestinal abdomen soft, mild epigastric tenderness, bowel sounds audible, no guarding , no rigidity. Extremities no edema. Neuro non focal Left hip small bruise on buttock, good range of motion Skin no rash Results Labs 02/12/25 04:56 02/12/25 04:56 Labs: Laboratory Results - last 24 hr 02/12/25 02/12/25 02/12/25 04:44 04:56 06:10 MCV 87.7 MCH 29.1 MCHC 33.2 RDW 14.5 Plt Count 331 MPV 10.7 Immature Gran % (Auto) 0.5 H Neut % (Auto) 87.2 H Lymph % (Auto) 9.0 L Tyrrell % (Auto) 3.1 Eos % (Auto) 0.0 Baso % (Auto) 0.2 Lymph # (Auto) 2.0 Tyrrell # (Auto) 0.7 Eos # (Auto) 0.0 Baso # (Auto) 0.0 Abs Immat Gran (auto) 0.11 H Absolute Neuts (auto) 19.0 H Absolute Nucleated RBC 0.000 Nucleated RBC % (auto) 0.0 Anion Gap 13 Estim Creat Clear Calc 66.3 Estimated GFR > 60 Random Glucose 97 Lactic Acid Calcium 9.0 D Magnesium 2.2 Total Bilirubin 0.7 Direct Bilirubin 0.2 AST 44 H ALT 18 Alkaline Phosphatase 67 Troponin I High Sens 2.7 Total Protein 7.5 Albumin 3.9 Lipase 43 Urine Color Yellow Urine Appearance Clear Urine pH 6.0 Ur Specific [place] >= 1.030 H Urine Protein 30 (1+) H Urine Glucose (UA) Negative Urine Ketones Trace Urine Blood Negative Urine Nitrite Negative Ur Leukocyte Esterase Trace H Urine RBC 0-2 Urine WBC 11-20 H Ur Squamous Epith Cells 6-10 Urine Bacteria Trace Hyaline Casts 0-2 Influenza Type A (PCR) NEGATIVE Influenza Type B (PCR) NEGATIVE RSV RNA Qual (PCR) NEGATIVE SARS-CoV-2 RNA (RT-PCR) NEGATIVE 02/12/25 11:59 MCV MCH MCHC RDW Plt Count MPV Immature Gran % (Auto) Neut % (Auto) Lymph % (Auto) Tyrrell % (Auto) Eos % (Auto) Baso % (Auto) Lymph # (Auto) Tyrrell # (Auto) Eos # (Auto) Baso # (Auto) Abs Immat Gran (auto) Absolute Neuts (auto) Absolute Nucleated RBC Nucleated RBC % (auto) Anion Gap Estim Creat Clear Calc Estimated GFR Random Glucose Lactic Acid 1.0 Calcium Magnesium Total Bilirubin Direct Bilirubin AST ALT Alkaline Phosphatase Troponin I High Sens Total Protein Albumin Lipase Urine Color Urine Appearance Urine pH Ur Specific [place] Urine Protein Urine Glucose (UA) Urine Ketones Urine Blood Urine Nitrite Ur Leukocyte Esterase Urine RBC Urine WBC Ur Squamous Epith Cells Urine Bacteria Hyaline Casts Influenza Type A (PCR) Influenza Type B (PCR) RSV RNA Qual (PCR) SARS-CoV-2 RNA (RT-PCR) Imaging Radiologist's Impressions: Impressions Abdomen/Pelvis CT 02/12/25 07:43 IMPRESSION: Suspected left lower lobe pneumonia. Cholelithiasis and minimal intrahepatic biliary ductal dilation without gallbladder wall thickening. Fleischner guidelines were followed. Electronically signed by: Jassi Aragon MD 02/12/2025 10:30 AM EST RP Head CT 02/12/25 07:43 IMPRESSION: No acute intracranial abnormality. Electronically signed by: Ridge Ugalde MD 02/12/2025 08:09 AM EST RP Chest CTA 02/12/25 09:51 IMPRESSION: 1. There is no evidence of pulmonary embolus. There is no evidence of acute aortic syndrome. 2. There are consolidative changes in the left lower lobe consistent with bronchopneumonia. 3. There is diffuse thickening of the small airways in keeping with inflammatory/infectious airways disease. 4. There is mild cardiac enlargement. 5. The esophagus is diffusely patulous. 6. Additional ancillary findings as discussed in the body of the report. Electronically signed by: Nilo Vidal MD 02/12/2025 10:32 AM [facility] RP Assessment and Plan (1) Nausea vomiting and diarrhea: Status: Acute (2) Morbid obesity: Status: Acute (3) Contusion of left leg: Status: Acute (4) Pneumonia: Status: Acute (5) GEORGIE (obstructive sleep apnea): Status: Acute (6) Syncope: Status: Acute Plan 63-year-old female with a PMH significant for HTN, HLD, allergic rhinitis,?severe persistent asthma,IBS, GEORGIE on CPAP, and GERD who presents to the ED after syncopal episode at home. Pt will be admitted to the hospital for treatment and further evaluation of syncopal episode in the setting of community acquired pneumonia. Bronchopneumonia: CTA chest showed no PE but showed left lower lobe consolidative change consistent with bronchopneumonia, RSV, COVID and influenza negative. Patient failed outpatient antibiotic treatment with azithromycin. Will place on doxycycline and ceftriaxone, continue cough medication, home nebulizers Leukocytosis likely secondary to recent use of prednisone, afebrile, normal lactic acid Noted to have O2 91% in ER on room air therefore place on 2 L of oxygen. Titrate supplemental O2 >92, wean as tolerated Fall question Syncopal episode Most likely vasovagal secondary to diarrhea and vomiting Head CT, unremarkable Normal orthostatic BP received 2 L IVF in the ED, follow clinical course Nausea vomiting and diarrhea resolved likely related to recent use of antibiotics, supportive care, stable renal function and electrolytes. Left hip bony contusion due to fall : CT abdomen and pelvis showed no osseous abnormality, analgesics rest and activity as tolerated History of severe persistent asthma no acute exacerbation noted will continue home nebulizers. Obstructive sleep apnea continue CPAP Morbid obesity recommend low-calorie diet Mood disorder Continue home mood stabilizers Full Code DVT Prophylaxis: Lovenox Quality Stroke Does the patient have a stroke diagnosis?: No VTE Prior VTE?: No VTE Risk Level:: Medical - moderate - high VTE Device Contraindication: Treatment Not Indicated VTE Drug Contraindication: N/A - Med Ordered
--- NOTE | 2025-02-12 14:59 | PHA.MEDREC ---
Addendum entered by Josie Farr [facility] 02/12/25 16:05: REVIEWED BY PHARMACIST Original Note: Pharmacy Consult ? Medication Reconciliation Pharmacy has completed the medication reconciliation. Spoke with pt and her daughter was able to confirm pt medications over the phone. Pt finished her Azithromycin regimen yesterday, she is Clonzepam 0.5mg tabs once a day at bedtime; script written for 1 tab in the morning as needed and 1 at bedtime but pt gets too drowsy taking 1 tab in Am, she is not taking Famotidine and is taking Pantoprazole, she has 2 days left of her Prenisone 20mg regimen; pt taking 1/2 tab (10mg) for 2 more days then she is done, pt was taking Tobramycin eye drops for her eyes but has not been able to in 2 days; pt stopped due to getting sick but has 2 days left in that regimen and pt daughter confirmed pt still taking Ezetimibe 10mg tabs and Losartan 50mg tabs once daily and still has an abundance of those at home.
[2025-02-12] MEDS: 0.9 % Sodium Chloride Flush 3 ML SYRINGE IVFLUSH (15:07)
[2025-02-12] MEDS: Tobramycin Sulfate 0.3% Sol Op 5 ML BTL 1 DROP EYE-BOTH ×2 (15:39→21:57)
--- NOTE | 2025-02-12 16:29 | HO.NURTONUR ---
Patient c/o 2 days of nausea, vomiting and diarrhea. PMH: persistent asthma, obstructive sleep apnea on CPAP, hypertension, palpitation GERD Patient alert and oriented, SB assist to BR, on 2L O2 d/t desat to 91% on RA. IS SOB/WOB minorly s/p walking to BR. Pt flushed appearing, afebrile. CT shows pneumonia. Plan: abx. CPAP @ .
[2025-02-12] MEDS: Albuterol/Iprat 2.5/0.5MG 3 ML AMPUL.NEB INHALE (18:46)
[2025-02-13] VITALS (7 sets, daily range): BP systolic 109–146; BP diastolic 61–75; PULSE 64–96; RESP 18–20; TEMP 36.7–37.1; O2SAT 92–98
[2025-02-13] MEDS: 0.9 % Sodium Chloride Flush 3 ML SYRINGE IVFLUSH ×4 (00:03→21:31)
[2025-02-13] MEDS: Tobramycin Sulfate 0.3% Sol Op 5 ML BTL 1 DROP EYE-BOTH ×5 (03:12→20:38)
[2025-02-13] MEDS: Magnesium Hydrox/Alum Hydrox 30 ML ORAL.SUSP PO (03:12)
[2025-02-13 04:09] LABS: CDiff Gene PCR NEGATIVE (Negative)
[2025-02-13] MEDS: Albuterol/Iprat 2.5/0.5MG 3 ML AMPUL.NEB INHALE ×3 (07:38→18:47)
--- NOTE | 2025-02-13 13:43 | HO.PM.IMPN ---
Subjective Subjective Date of Service: 02/13/25 Interval History: She's feeling much better Noted to have wheezing Physical Exam Vital Signs: Vital Signs: Last Vital Signs Temp 98.4 F 02/13/25 07:10 Pulse 72 02/13/25 13:30 Resp 20 02/13/25 13:30 BP 126/66 02/13/25 07:10 Pulse Ox 98 02/13/25 07:10 O2 Del Method Nasal Cannula 02/13/25 07:10 O2 Flow Rate 2.0 02/13/25 07:10 BMI result Body Mass Index 38.9 Const: Other: General awake alert x3 sick appearing Neck supple no JVD. CVS regular rate rhythm, Respiratory lesa wheezing Gastrointestinal abdomen soft, mild epigastric tenderness, bowel sounds audible, no guarding , no rigidity. Extremities no edema. Neuro non focal Left hip small bruise on buttock, good range of motion Skin no rash Objective Data Active Medications Acetaminophen (Acetaminophen 325 Mg Tablet) 650 mg PO Q6H PRN PRN Reason: Pain, Mild 1-3,fever,headache Last Admin: 02/12/25 15:05 Dose: 650 mg Documented By: JOSSE Al Hydroxide/Mg Hydroxide (Magnesium Hydrox/Alum Hydrox 30 Ml Oral.Susp) 30 ml PO Q4H PRN PRN Reason: Heartburn Last Admin: 02/13/25 03:12 Dose: 30 ml Documented By: JESSICA Albuterol/Ipratropium (Albuterol/Iprat 2.5/0.5mg 3 Ml Ampul.Neb) 3 ml INHALE RQ6H WHILE AWAKE [facility] Last Admin: 02/13/25 13:28 Dose: 3 ml Documented By: MARGOT Benzonatate (Benzonatate 100 Mg Capsule) 200 mg PO TID PRN PRN Reason: Cough Budesonide (Budesonide 0.5 Mg/2 Ml Ampul.Neb) 0.5 mg INHALE BID [facility] Last Admin: 02/13/25 07:38 Dose: 0.5 mg Documented By: MARGOT Calcium Carbonate (Calcium Carbonate 750 Mg Tab.Chew) 750 mg PO Q4H PRN PRN Reason: Heartburn Clonazepam (Clonazepam 0.5 Mg Tablet) 0.5 mg PO BEDTIME [facility] Last Admin: 02/12/25 20:28 Dose: 0.5 mg Documented By: JESSICA Ezetimibe (Ezetimibe 10 Mg Tablet) 10 mg PO BEDTIME [facility] Last Admin: 02/12/25 20:28 Dose: 10 mg Documented By: JESSICA Enoxaparin Sodium (Enoxaparin Sodium 40 Mg/0.4 Ml Syringe) 40 mg SUBCUT Q24H [facility] Last Admin: 02/13/25 13:10 Dose: 40 mg Documented By: MARCO ANTONIO Guaifenesin/Dextromethorphan (Guaifenesin Dm 200/20/10 Ml 10 Ml Syrup) 10 ml PO Q6H PRN PRN Reason: Cough Hydroxyzine HCl (Hydroxyzine Hcl 25 Mg Tablet) 25 mg PO BEDTIME [facility] Last Admin: 02/12/25 20:28 Dose: 25 mg Documented By: JESSICA Ceftriaxone Sodium 1 gm/ (Sodium Chloride) 50 mls @ 100 mls/hr IV Q12H [facility] Last Infusion: 02/13/25 12:50 Dose: Infused Documented By: MARCO ANTONIO Doxycycline Hyclate 100 mg/ (Sodium Chloride) 250 mls @ 166.67 mls/hr IV Q12H [facility] Last Infusion: 02/13/25 09:58 Dose: Infused Documented By: MARCO ANTONIO Ceftriaxone Sodium 1 gm/ (Sodium Chloride) 50 mls @ 100 mls/hr IV Q24H [facility] Last Infusion: 02/12/25 16:43 Dose: Infused Documented By: DITOLC Ibuprofen (Ibuprofen 600 Mg Tablet) 600 mg PO Q8H PRN PRN Reason: Pain, Moderate(Pain Scale 4-6) Levalbuterol HCl (Levalbuterol Hcl 1.25 Mg/3 Ml Vial.Neb) 1.25 mg INHALE RQ4H PRN PRN Reason: Shortness of Breath Loratadine (Loratadine 10 Mg Tablet) 10 mg PO DAILY [facility] Last Admin: 02/13/25 08:00 Dose: 10 mg Documented By: MARCO ANTONIO Losartan Potassium (Losartan Potassium 50 Mg Tablet) 50 mg PO DAILY [facility]; Protocol Last Admin: 02/13/25 08:01 Dose: 50 mg Documented By: MARCO ANTONIO Magnesium Hydroxide (Milk Of Magnesia 30 Ml Oral.Susp) 30 ml PO DAILY PRN PRN Reason: Constipation Melatonin (Melatonin 3 Mg Tablet) 6 mg PO BEDTIME PRN PRN Reason: Insomnia Metoprolol Tartrate (Metoprolol Tartrate 50 Mg Tablet) 50 mg PO BID [facility]; Protocol Last Admin: 02/13/25 08:00 Dose: 50 mg Documented By: MARCO ANTONIO Omeprazole (Omeprazole 20 Mg Capsule.) 20 mg PO BID@0630,1630 [facility] Last Admin: 02/13/25 05:31 Dose: 20 mg Documented By: JESSICA Ondansetron HCl (Ondansetron Hcl 4 Mg/2 Ml Vial) 4 mg IVPUSH Q8H PRN PRN Reason: Nausea and Vomiting Polyethylene Glycol (Polyethylene Glycol 3350 17 Gm Powd.Pack) 17 gm PO DAILY PRN PRN Reason: Constipation Sodium Chloride (0.9 % Sodium Chloride Flush 3 Ml Syringe) 3 ml IVFLUSH QSHIFT [facility] Last Admin: 02/13/25 08:10 Dose: 3 ml Documented By: MARCO ANTONIO Sucralfate (Sucralfate 1 Gm Tablet) 2 gm PO DAILY [facility] Last Admin: 02/13/25 08:00 Dose: 2 gm Documented By: MARCO ANTONIO Tiotropium [place] (Tiotropium [place] 2.5 Mcg 1 Puff/2.5 Mcg Mist.Inhal) 2 puff INHALE RDAILY [facility] Last Admin: 02/13/25 08:25 Dose: Not Given Documented By: MICHELLE Non-Admin Reason: pharmacy called for med Tobramycin Sulfate (Tobramycin Sulfate 0.3% Joelle Op 5 Ml Btl) 1 drop EYE-BOTH Q4H [facility] Last Admin: 02/13/25 11:33 Dose: 1 drop Documented By: MARCO ANTONIO Labs 02/13/25 13:56 02/12/25 04:56 Labs: Laboratory Results - last 24 hr 02/13/25 02:36 C. difficile Tox B Gene NEGATIVE Microbiology Microbiology Results: Microbiology 02/12/25 Unknown Urine Culture - Final Urine clean catch - Clean Catch Midstream Assessment and Plan (1) Pneumonia: Status: Acute Plan 63-year-old female with a PMH significant for HTN, HLD, allergic rhinitis,?severe persistent asthma,IBS, GEORGIE on CPAP, and GERD who presents to the ED after syncopal episode at home. Pt will be admitted to the hospital for treatment and further evaluation of syncopal episode in the setting of community acquired pneumonia. Bronchopneumonia with bronchospasm CTA chest showed no PE but showed left lower lobe consolidative change consistent with bronchopneumonia, RSV, COVID and influenza negative. Patient failed outpatient antibiotic treatment with azithromycin. On doxycycline and ceftriaxone, continue cough medication, home nebulizers Leukocytosis likely secondary to recent use of prednisone, and has normalized Noted to have O2 91% in ER on room air therefore place on 2 L of oxygen. Titrate supplemental O2 >92, wean as tolerated add Predninsone 30 mg daily x 5 days for bronchospams Fall question Syncopal episode Most likely vasovagal secondary to diarrhea and vomiting Head CT, unremarkable Normal orthostatic BP received 2 L IVF in the ED, follow clinical course Nausea vomiting and diarrhea resolved likely related to recent use of antibiotics, supportive care, stable renal function and electrolytes. Left hip bony contusion due to fall : CT abdomen and pelvis showed no osseous abnormality, analgesics rest and activity as tolerated History of severe persistent asthma no acute exacerbation noted will continue home nebulizers. Obstructive sleep apnea continue CPAP Morbid obesity recommend low-calorie diet Mood disorder Continue home mood stabilizers Full Code DVT Prophylaxis: Lovenox ancitipated dc tomorrow, can dc with PO Ceftin and doxy for 5 days Quality Stroke Does the patient have a stroke diagnosis?: No VTE Prior VTE?: No VTE Risk Level:: Medical - moderate - high VTE Device Contraindication: Treatment Not Indicated VTE Drug Contraindication: N/A - Med Ordered
[2025-02-13 14:04] LABS: Hematocrit 29.9 % (37.0-47.0); Hemoglobin 9.9 g/dl (12.0-16.0); Mean Corpuscular HGB Conc 33.1 g/dl (31.0-35.0); Mean Corpuscular Hemoglobin 29.3 pg (27.0-33.0); Mean Corpuscular Volume 88.5 fL (80.0-98.0); NRBC Abs Auto 0.000 X10*3/uL (0.0-0.012); NRBC Pct Auto 0.0 /100WBC (0.0-0.2); Platelet Count 236 X10*3/uL (160-400); Red Blood Count 3.38 X10*6/uL (4.20-5.50); White Blood Count 10.4 X10*3/uL (4.8-10.8)
[2025-02-13 14:35] LABS: Anion Gap 13 (12-20); Blood Urea Nitrogen 12 mg/dL (9-16); Calcium 8.4 mg/dL (8.4-10.2); Carbon Dioxide 24 mmol/L (22-29); Chloride 107 mmol/L (96-108); Creatinine Clr Calc Pharmacy 71.8; Estimated Glomerular Filt Rate > 60; Potassium 3.3 mmol/L (3.3-5.1); Sodium 141 mmol/L (135-145)
--- NOTE | 2025-02-13 16:10 | MHC.CM.PN ---
Addendum entered by Che Simpson 02/14/25 16:12: PT CLEARED TO DC HOME TODAY WITH NO SERVICES Original Note: PT LIVES [place] AND IS INDEPENDENT WITH CARE PCP AT [facility] HCP ON FILE OBSERVATION NOTICE DELIVERED DCP: HOME VIA FAMILY TRANSPORT
[2025-02-14 04:00] VITALS: BP 138/78; PULSE 60; RESP 18; TEMP 36; O2SAT 96
[2025-02-14 07:06] VITALS: BP 143/61; PULSE 56; RESP 16; TEMP 36.8; O2SAT 97
[2025-02-14] MEDS: Tiotropium Bromide 2.5 mcg 1 PUFF/2.5 MCG MIST.INHAL 2 PUFF INHALE (07:36)
[2025-02-14] MEDS: Albuterol/Iprat 2.5/0.5MG 3 ML AMPUL.NEB INHALE ×2 (07:36→13:21)
[2025-02-14 07:37] VITALS: PULSE 62; RESP 20; O2SAT 96
[2025-02-14 08:31] LABS: Chlamydia pneumoniae PCR Not Detected (Not Detect.); Coronavirus 229E PCR Not Detected (Not Detect.); Coronavirus HKU1 PCR Not Detected (Not Detect.); Coronavirus NL63 PCR Not Detected (Not Detect.); Coronavirus OC43 PCR Not Detected (Not Detect.); RSV PCR Not Detected (Not Detect.); Rhino/Enterovirus PCR Not Detected (Not Detect.)
[2025-02-14 08:37] LABS: Hematocrit 30.7 % (37.0-47.0); Hemoglobin 10.2 g/dl (12.0-16.0); Mean Corpuscular HGB Conc 33.2 g/dl (31.0-35.0); Mean Corpuscular Hemoglobin 29.1 pg (27.0-33.0); Mean Corpuscular Volume 87.5 fL (80.0-98.0); NRBC Abs Auto 0.000 X10*3/uL (0.0-0.012); NRBC Pct Auto 0.0 /100WBC (0.0-0.2); Platelet Count 248 X10*3/uL (160-400); Red Blood Count 3.51 X10*6/uL (4.20-5.50); White Blood Count 9.6 X10*3/uL (4.8-10.8)
[2025-02-14] MEDS: 0.9 % Sodium Chloride Flush 3 ML SYRINGE IVFLUSH (08:37)
[2025-02-14] MEDS: Tobramycin Sulfate 0.3% Sol Op 5 ML BTL 1 DROP EYE-BOTH ×3 (08:39→16:08)
[2025-02-14 08:52] LABS: SARS-CoV-2 PCR Not Detected (Not Detect.)
[2025-02-14 08:53] LABS: Influenza A H1 PCR Not Detected (Not Detect.); Influenza A H1-2009 PCR Not Detected (Not Detect.); Influenza A H3 PCR Not Detected (Not Detect.)
[2025-02-14 13:23] VITALS: PULSE 76; RESP 20; O2SAT 98
--- NOTE | 2025-02-14 14:35 | PM.DS ---
DS: Providers Provider Date of admission: 02/12/25 12:48 Date of discharge: 02/14/25 Primary care physician: [facility] DS: Diagnosis Discharge Diagnosis (1) Pneumonia: Status: Acute DS: Summary Hospital Course Hospital Course: Chief Complaint: Syncope/SOB 64-year-old female patient with past medical history significant for severe persistent asthma, obstructive sleep apnea on CPAP, hypertension, palpitation GERD presented to [place] ED with 2 days' history of nausea, vomiting and diarrhea. Patient was seen by her PCP 1 week ago due to symptoms of shortness of breath and was placed on prednisone, azithromycin and cough medication. Patient continued her home nebulizers and CPAP but was not feeling better and subsequently developed nausea, abdominal pain and profuse diarrhea.Patient states that last night she got up from bed, went to the bathroom, had a watery bowel movement, on her way back to her bedroom, patient felt lightheaded and dizzy. Patient believes that she passed out and then she remembers waking up in her bed and her son at bedside calling for ambulance.Patient complaining of left leg pain after fall. At present patient denies fevers, no nausea, no vomiting or diarrhea. She states her diarrhea improved after taking antidiarrheal last night. Her younger son has URI symptoms, no recent history of travel, no history of seizure. Hospital course 63-year-old female with a PMH significant for HTN, HLD, allergic rhinitis,?severe persistent asthma,IBS, GEORGIE on CPAP, and GERD who presents to the ED after syncopal episode at home. Pt will be admitted to the hospital for treatment and further evaluation of syncopal episode in the setting of community acquired pneumonia. Bronchopneumonia with bronchospasm CTA chest showed no PE but showed left lower lobe consolidative change consistent with bronchopneumonia, RSV, COVID and influenza negative. Patient failed outpatient antibiotic treatment with azithromycin Treated in hospital with doxycycline and ceftriaxone, continue cough medication, home nebulizers. WBC was 20 and has come down to 9 Noted to have O2 91% in ER on room air therefore place on 2 L of oxygen., presently 97% on room air Predninsone 30 mg daily x 5 days for bronchospams was asdded Fall question Syncopal episode Most likely vasovagal secondary to diarrhea and vomiting Head CT, unremarkable Normal orthostatic BP received 2 L IVF in the ED, follow clinical course Nausea vomiting and diarrhea resolved likely related to recent use of antibiotics, supportive care, stable renal function and electrolytes. Left hip bony contusion due to fall : CT abdomen and pelvis showed no osseous abnormality. She has no pain in the hip or knee and walking without any difficulty. She does have a bruse ln left leg, tigh, most prominent on left leg, lateral aspect. US is negative for DVT. Hgb and hematocrit has been relatively stable without signficant shift. She's advise to use heat compression.a History of severe persistent asthma no with bronchospams, Prednisone and inhalers Obstructive sleep apnea continue CPAP Morbid obesity recommend low-calorie diet Mood disorder Continue home mood stabilizers Time Attestation Discharge Coordination Time (in mins): 40 Quality: Safe Use of Opioids Does Pt have an Active Cancer Diagnosis on the Problem List?: No Quality: Stroke Does the patient have a stroke diagnosis?: No Physical Exam Vital Signs: Vital Signs: Last Vital Signs Temp 98.2 F 02/14/25 07:06 Pulse 76 02/14/25 13:23 Resp 20 02/14/25 13:23 BP 143/61 H 02/14/25 07:06 Pulse Ox 97 02/14/25 07:06 O2 Del Method Room Air 02/14/25 07:06 O2 Flow Rate 2.0 02/13/25 07:10 BMI result Body Mass Index 38.9 DS: Data Data Completed and Pending Completed studies during hospitalization [Text1]: Procedures Assistance with Respiratory Ventilation, Less than 24 Consecutive Hours, Continuous Positive Airway Pressure (10/30/23) Labs on day of discharge: Laboratory Results - last 24 hr 02/13/25 02/13/25 02/14/25 13:56 16:25 08:28 WBC 9.6 RBC 3.51 L Hgb 10.2 L Hct 30.7 L MCV 87.5 MCH 29.1 MCHC 33.2 RDW 14.7 Plt Count 248 MPV 10.5 Absolute Nucleated RBC 0.000 Nucleated RBC % (auto) 0.0 Sodium 141 Potassium 3.3 D Chloride 107 Carbon Dioxide 24 Anion Gap 13 BUN 12 Creatinine 0.78 Estim Creat Clear Calc 71.8 Estimated GFR > 60 Random Glucose 113 Calcium 8.4 D Respiratory Panel Cervantes See Note Adenovirus (Rapid PCR) Not Detected B.pert (TEM-PCR) Not Detected B.parapertussis DNA PCR Not Detected C. pneumoniae DNA (PCR) Not Detected Coronavirus OC43 (PCR) Not Detected Coronavirus HKU1 (PCR) Not Detected Coronavirus 229E (PCR) Not Detected Coronavirus NL63 (PCR) Not Detected Human Metapneumovir PCR Not Detected Influenza A (RT-PCR) Not Detected Influenza A (H1) PCR Not Detected Influ A (H1/09) PCR Not Detected Influenza A (H3) PCR Not Detected Influenza B (RT-PCR) Not Detected M. pneumoniae (PCR) Not Detected Parainfluenza 1 (PCR) Not Detected Parainfluenza 2 (PCR) Not Detected Parainfluenza 3 (PCR) Not Detected Parainfluenza 4 (PCR) Not Detected RSV (PCR) Not Detected Entero/Rhino (PCR) Not Detected SARS-CoV-2 RNA (RT-PCR) Not Detected Preliminary micro results at discharge 02/12/25 11:56 Blood Culture - Preliminary Blood - Venous No growth after 48 hours. 02/12/25 11:56 Blood Culture - Preliminary Blood - Venous No growth after 48 hours. Discharge Plan Discharge Anticipated Discharge Date/Time: 02/14/25 14:35 Patient Disposition: Home, Self-Care Discharge Diagnosis: pneumonia Referrals: [facility] [Primary Care Provider, Medical] - 1 Week Discharge Medications: New prednisone 10 mg tablet 30 mg PO DAILY 3 Days Qty: 9 0RF Rx Instructions: next dose tomorrow cefuroxime axetil 500 mg tablet 500 mg PO BID 4 Days Qty: 8 0RF doxycycline hyclate 100 mg tablet 100 mg PO BID 4 Days Qty: 8 0RF Continued levocetirizine 5 mg tablet 5 mg PO DAILY Qty: 30 11RF Incruse Ellipta 62.5 mcg/actuation blister with device 1 inh INHALATION DAILY Qty: 30 11RF sucralfate 1 gram tablet 2 g PO DAILY Qty: 60 3RF metoprolol tartrate 50 mg tablet 50 mg PO BID acetaminophen 500 mg capsule 1,000 mg PO Q8H PRN (Reason: fever or pain) Qty: 14 0RF benzonatate 200 mg capsule 200 mg PO TID PRN (Reason: cough) ibuprofen 600 mg tablet 600 mg PO Q8H PRN (Reason: Pain) pantoprazole 40 mg tablet,delayed release (DR/EC) 40 mg PO BID@0630,1630 losartan 50 mg tablet 50 mg PO DAILY ezetimibe 10 mg tablet 10 mg PO BEDTIME Atrovent HFA 17 mcg/actuation HFA aerosol inhaler 2 puff INHALATION Q8H PRN (Reason: Shortness Of Breath Or Wheezing) tobramycin-dexamethasone 0.3-0.1 % drops,suspension 2 drp ophthalmic (eye) QID clonazepam 0.5 mg tablet 0.5 mg PO BEDTIME (DME) CPAP Machine/Device Device See Rx Instructions .ROUTE Rx Instructions: As directed hydroxyzine HCl 25 mg tablet 25 mg PO BEDTIME (DME) nebulizers Misc See Rx Instructions .ROUTE Rx Instructions: As directed levalbuterol tartrate [Xopenex HFA] 45 mcg/actuation HFA aerosol inhaler 1 puff inhalation Q4-6H PRN (Reason: Shortness Of Breath Or Wheezing) budesonide 0.5 mg/2 mL suspension for nebulization 0.5 mg inhalation BID 30 Days Qty: 120 11RF albuterol sulfate 2.5 mg /3 mL (0.083 %) solution for nebulization 2.5 mg inhalation Q6H PRN (Reason: for wheezing) 30 Days Qty: 180 11RF Discontinued prednisone 20 mg tablet See Taper PO DIRECTED Taper: Prednisone 10 mg daily for 2 Days and 0 Hour Rx Instructions: TAKE 3 TABLETS BY MOUTH EVERY DAY FOR 3 DAYS THEN TAKE 2 TABLETS EVERY DAY FOR 3 DAYS THEN TAKE 1 TABLET EVERY DAY FOR 3 DAYS THEN TAKE 1/2 TABLET EVERY DAY FOR 4 DAYS Discharge Orders: Discharge Order (Routine); Ordered 02/14/25 Ordered By: Isaiah Green Diet: Advance to usual diet Activity on Discharge: As tolerated Stand Alone Forms: Patient Portal Discharge page Print Language: Slovak Care Plan Goals: recovery from pneumonia Health Concerns: pneumonia asthma with bronchospasm left leg and tigh contusion and hematoma Plan of Treatment: take cefuroxime and doxycyline for pneumonia take prednisone for asthma and bronchospasm apply mild heat to the bruises twice daily follow up with your doctor in a week, call for appointment Assessment: see above
[2025-02-14 15:56] VITALS: BP 143/73; PULSE 71; RESP 18; TEMP 36.4; O2SAT 96
== END 2025-02-14 16:30 | disposition home or self-care (01) ==
LOC: HO.ED 07:01 → HO.EDOVER 12:55 → HO.S3 16:09
PROVIDERS: Emergency Medicine; Admitting Provider Hospitalist; Emergency Provider Emergency Medicine; Visit Provider Internal Medicine
DX: J18.0 Bronchopneumonia, unspecified organism (principal); R55 Syncope and collapse; R11.2 Nausea with vomiting, unspecified; R19.7 Diarrhea, unspecified; S80.12XA Contusion of left lower leg, initial encounter; S09.90XA Unspecified injury of head, initial encounter; W19.XXXA Unspecified fall, initial encounter; Y93.9 Activity, unspecified; Y92.9 Unspecified place or not applicable; Y99.9 Unspecified external cause status; R10.9 Unspecified abdominal pain; R51.9 Headache, unspecified; M79.89 Other specified soft tissue disorders; R06.02 Shortness of breath; J45.50 Severe persistent asthma, uncomplicated; G47.33 Obstructive sleep apnea (adult) (pediatric); Z99.89 Dependence on other enabling machines and devices; E66.01 Morbid (severe) obesity due to excess calories; Z68.38 Body mass index [BMI] 38.0-38.9, adult; Z79.899 Other long term (current) drug therapy
CPT/HCPCS: 36415; 70450; 71275; 73502; 73560; 74177; 80048; 80076; 81001; 83605; 83690; 83735; 84484; 85025; 85027; 87040; 87086; 87493; 87633; 87637; 93005; 93971; 94660; 96361; 96365; 96366; 96368; 96372; 96375; 99221; 99285; J0696; J1271; J1650; J2405; J7120; Q9967

== ENCOUNTER → 2025-02-12 04:26 | Outpatient (BNV) | payer MEDICAID, SELFPAY | PROVIDERS: Admitting Provider Hospitalist; Emergency Provider Emergency Medicine; Visit Provider Internal Medicine Cardiovascular Disease | DX: R55 Syncope and collapse (principal) | CPT/HCPCS: 93010 ==

== ENCOUNTER → 2025-02-12 06:47 | Outpatient (BNV) | payer MEDICAID, SELFPAY | PROVIDERS: Emergency Provider Emergency Medicine; Visit Provider Radiology Diagnostic Radiology | DX: K80.20 Calculus of gallbladder without cholecystitis without obstruction (principal); K83.8 Other specified diseases of biliary tract; I51.7 Cardiomegaly; S09.90XA Unspecified injury of head, initial encounter; R51.9 Headache, unspecified; R55 Syncope and collapse | CPT/HCPCS: 70450; 71275; 74177 ==

== ENCOUNTER 2025-02-12 12:48 | Outpatient (BNV) | payer MEDICAID, SELFPAY | END 2025-02-14 14:33 | PROVIDERS: Admitting Provider Hospitalist; Emergency Provider Emergency Medicine; Visit Provider Radiology Diagnostic Radiology | DX: R22.42 Localized swelling, mass and lump, left lower limb (principal); Z04.3 Encounter for examination and observation following other accident | CPT/HCPCS: 73502; 73560; 93971 ==

== ENCOUNTER → 2025-02-12 12:48 | Outpatient (BNV) | payer MEDICAID, SELFPAY | PROVIDERS: Admitting Provider Hospitalist; Emergency Provider Emergency Medicine; Visit Provider Hospitalist | DX: J18.9 Pneumonia, unspecified organism (principal) | CPT/HCPCS: 99223; 99233; 99239 ==

== ENCOUNTER 2025-02-16 15:04 | Outpatient (AMB) | payer MEDICAID, SELFPAY ==
[2025-02-16 15:13] VITALS: BP 130/70; PULSE 73; O2SAT 98; BMI 42.7
--- NOTE | 2025-02-16 15:13 | A.OFFVIS_ITS ---
Vital Signs 02/16/25 15:13 Height 4 ft 11 in Weight 211 lb 10.3 oz BMI 42.7 BP 130/70 Blood Pressure Location Lt brachial Position Sitting Pulse 73 Pulse Source Pulse Oximeter Pulse Oximetry (%) 98 Oxygen Delivery Method Room Air Intake Visit Reasons: asthma Reference Services Head Required: No Reference Services Head Services: Reference Services Head Offered & Declined Reference Services Head Name: MD speaks bahraini Software Developer Consultant: Software Developer Consultant offered & declined Accompanied by: Self / Same As Patient Allergies Penicillins Allergy (Severe, Verified 02/16/25 15:17) hives, swelling pollen extracts (POLLEN) Allergy (Severe, Verified 02/16/25 15:17) ITCHING peanut (PEANUT) Allergy (Intermediate, Verified 02/16/25 15:17) RASH plum Allergy (Severe, Uncoded 07/15/24 11:27) swelling HPI Comments Details: The patient is a 64-year-old woman with known severe persistent asthma follow closely by Allergy and also pulmonary. She is currently on Xolair and is also on Breo and Atrovent HFA. She has felt that her respiratory symptoms have improved on this medication. However, lately the last week or 2 she is having more chest congestion and wheezing. She is having to use her nebulizer up to 4 times a day. She is trying to expectorate phlegm and is usually clear in color. Denies any fevers or chills or night sweats or body aches. She also complains of nasal congestion and is feels like she is having better allergies at this time. She has tried multiple nasal spray with a no significant improvement. 04/06/2022 the patient is here for a pulmonary follow-up visit. She has been having hard time with her breathing. Complains of chest tightness and wheezing. Moderate severity. Her inhalers have not been completely effective. She also complains of chest congestion and cough. She is bringing up yellowish phlegm. Difficult to expectorate. In addition to that she is having hard time with her CPAP. The CPAP is shutting off in the middle the night and she has a hard time because of the shortness of breath. She will have Robb go to her home to address the issues with her machine. If the machine is broken beyond repair she is going to [place] replacement. She will call us once after she has evaluation to make sure that we address any issues with her CPAP. In the meantime the CPAP therapy has been very affecting beneficial when he was working properly. I did adjust the pressures a little bit I increased her maximum pressure to 16. She is using nasal pillows. I did talk about considering getting a chinstrap in order to minimize air leakage in case that is causing the machine to shot up by itself. 06/01/2022 the patient is here for a pulmonary follow-up visit. She was doing well until couple days ago when she started developing sinus pain pressure and postnasal drip. She feels congested. She feels like this will go down to her lungs and resulting worsening respiratory complaints. She read treated now. The patient has been using her respiratory medications although she does not have all them available. I will make sure to sent to the pharmacy. She did bring her new CPAP. The CPAP therapy continues to be affecting beneficial. She does use it more than 4 hours. Last night she only used it for 3 hours because she fell asleep washing TV. She is aware that if she does not use it enough she with on going to be able to get supplies. The patient is using nasal pillows. They appear to be affected with the go ahead and send [employer] a prescription for renewal of her supplies at this time. She continues on the Xolair injections. The been affecting beneficial. 11/26/2022 the patient is here for pulmonary follow-up visit. The patient has not been feeling well for couple days. She did tested negative for COVID yesterday. Started having flu-like symptoms. Sore throat and also cough. She is having some chest congestion. She is using her nebulizer more often. Prior to this illness she was doing just fine her current respiratory regimen. She continues on the Xolair injections. The patient also continues her CPAP therapy she does use it more than 4 hours a night. She does get supplies from [employer]. We had sent a prescription back in May but she has yet to receive them. Therefore, will send another script for her to continue getting her supplies to her [employer] company. Will go ahead and swab her for flu RSV and COVID right now. If the patient has abnormal result I will let her know. Otherwise she will start a prednisone taper and some antibiotics to treat her for a respiratory infectious process. 04/05/2023 the patient is here for sick visit. She has been sick now for about 4 days. She started developing fevers and chills. Also nasal congestion and sore throat. The patient was noticing increasing chest tightness shortness of breath and wheezing. Therefore she called for an appointment. The patient did have a nasal swab in the office. Was negative for RSV, flu and COVID-19. The patient does have significant wheezing on examination. She is also coughing with some chest congestion. Mucus is yellowish in color. The patient has been using her respiratory therapy. She needs an additional nebulized therapy. She continues use Mucinex as needed for the chest congestion. This time will going to go ahead and send the additional medications to the pharmacy to treat an asthma exacerbation due to a viral syndrome. She is also struggling getting supplies from her [employer] company, [employer]. We did call them it seems that everything is up today. However she needs to make an appointment to be able to oyster picker her equipment. She is using the P 10 mask the seems to be the most comfortable for her. 07/30/2023 the patient is here for pulmonary follow-up visit. Overall she is doing well. The patient has been taking the Xolair once a month and seems to be more effective for her she continues on respiratory inhalers. Some mixup with the inhalers. She was supposed to be on Trelegy but only taking Incruse. Therefore explained to her the importance of being on the Trelegy or adding the Breo to her Incruse if is not covered. She will call the office if she can go on Trelegy. She is having issues with back pain and muscle pain. She is waiting for if physical therapy evaluation. In the meantime the patient continues with respiratory therapy with good effect. Seems like her new nasal sprays that working more effectively and the patient has been able to tolerate CPAP. CPAP therapy continues to be affecting beneficial. Otherwise she is without any other complaints. Will follow-up in 4-6 months. 10/01/2023 this is a telehealth visit. The patient called yesterday about testing positive for COVID. She has been having worsening cough chest congestion wheezing. She has been using her nebulizer every 6 hours. Sometimes every 4 hours. She still having hard time. She did oyster picker the Paxlovid she did start yesterday. Seems to be tolerating it. In the meantime she is having a productive cough with yellow phlegm. She is going to monitor that. If the chest congestion and phlegm is not improving in the next 24 hours she can go ahead and start doxycycline. I will also give her low-dose prednisone that she can also start to make sure does not interact too much with the Paxlovid. If her condition worsens more than that she can always call the office but she would need to be seen in the ER. I am hopeful though that in the next 24:48 hours she should start feeling better on the Paxlovid. 12/03/2023 the patient is here for a pulmonary follow-up visit. She is not doing well after having COVID. The patient was scheduled to undergo eye surgery but she was not doing well from a respiratory status and therefore her surgery was postponed in order for her to get a pulmonary evaluation. She has been having worsening cough with chest congestion. Also complaining of shortness of breath. Yrtv-oe-oadkzsim severity. She has been on Breo and also on Incruse. Although she has not seen any significant improvement of her symptoms. She also had a prescription for prednisone but she did not take it because it does give her adverse effects. Think at this point be reasonable to try him budesonide along with switching over to Trelegy. And hopefully we can put her on a mild antibiotic to see if we can improve her symptoms of chronic bronchitis. If the patient is no better she will call. Hopefully she is feels better after several weeks of therapy and she can have her eye surgery. 02/03/2024 the patient is here for a pulmonary follow-up visit. The patient overall has been doing well. She continues her respiratory medicine with good effect. The patient has continue the Xolair injections also have been affecting beneficial. Respiratory johnston she is doing well. She is also using the CPAP. CPAP therapy continues to be affecting beneficial. She does use it more than 4 hours a night. The only complaint that she has her eyes are irritating and drippy. She did well with the eyedrop C4. Will go ahead and reorder them for her. She will follow-up with her primary care or production technologist if no better. 06/11/2024 the patient is here for a pulmonary follow-up visit. Patient has been sick now for few days. She actually went to the ER back on the because he did not feel well with worsening chest tightness coughing wheezing. She did have a chest x-ray and blood work which was all negative. She was given Zyrtec for allergies. Today she still has worsening symptoms with chest congestion chest tightness. She does have some inflammation around the conjunctiva right more than left. She has stopped her Xolair injections because she has changed insurance. She will have to resume them. In the meantime will continue her on respiratory therapy. But I suspect that this is more than allergies that she likely has a viral illness that exacerbate her asthma symptoms. Will go ahead start her on some prednisone and also give her short course of azithromycin. The patient can continue taking the Xyzal in addition to the Astelin nasal spray and she is also using Benadryl as needed. We can also add Pepcid to her regimen for the H2 blocking effect. Hopefully her symptoms improved after she goes back on Xolair. Will have to resubmit it with her new insurance. 02/16/2025 the patient is here for pulmonary follow-up visit. The patient was not on her usual state health until several weeks ago she started developing worsening cough chest tightness. She went to the health clinic where she was placed on prednisone and also given some antibiotics. Her condition worsens she call the ambulance. She went to the hospital. She was admitted to the hospital. She did have a CT scan of the chest PE protocol which I personally reviewed demonstrating significant airspace disease and consolidations of the left lower lobe suggesting significant pneumonia. She was placed on doxy and also a cephalosporin. She was also given a prednisone taper. She is still having hard time breathing. Still feels the chest tightness. She has been using her nebulizer frequently. Will go ahead and go back on the prednisone a little higher dose and taper it down slowly. She will continue the antibiotics and will make sure that she has all her medications. She had done very well bad while on the Xolair. But however because she lost insurance she could not longer continue the biologic therapy. Will plan to repeat a chest x-ray and also blood work sometime in February. And then will follow-up after that. Will see about getting her back on biologics specially if her asthma continues to be active requiring prednisone. FORMERLY [facility], [facility] Medical History COVID-19 Personal history of nicotine dependence Morbid obesity GEORGIE (obstructive sleep apnea) (~2007) Tubular adenoma of colon (~2014) Chronic allergic rhinitis Bronchitis Asthma Surgical History History of endometrial ablation History of colonoscopy History of section Family History Father No problems noted. 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 Review of Systems Const Denies body aches, Reports difficulty sleeping, Denies fatigue, Denies fever(s) and Reports weight gain Eyes Reports irritation and Reports itchy eyes ENT Denies change in voice, Denies lip swelling, Reports nasal congestion, Reports nasal discharge and Reports post nasal drip Card Denies chest pain, Reports leg edema and Reports dyspnea on exertion Resp Denies change in phlegm color, Reports chest congestion, Reports cough, Reports dyspnea on exertion, Denies stridor and Reports wheezing GI Denies abdominal pain Musc Denies no additional complaints Neuro Denies Neuro-related abnormal movements Psych Denies no additional complaints Endo Denies fatigue Dalton/Lymph Denies easy bleeding and Denies lymphadenopathy Aller/Immun Reports itchy eyes, Denies lip swelling and Reports wheezing Physical Exam Vital Signs: Last Vital Signs Pulse 73 02/16/25 15:13 BP 130/70 02/16/25 15:13 Pulse Ox 98 02/16/25 15:13 Oxygen Delivery Method Room Air 02/16/25 15:13 BMI result Body Mass Index 42.7 Const General: alert Eyes Conjunctivae: conjunctival abnormal bilateral conjunctival injection and discharge Pupils: Equal, round and reactive pupils present Neck Neck: Yes normal visual inspection, Yes full ROM and Yes no lymphadenopathy Chest Chest palpation & inspection: normal inspection of the chest Resp Effort & Inspection: normal respiratory effort and prolonged expiratory phase Auscultation: rhonchi, wheezes and diminished lung sounds Cardio Rate: regular rate Rhythm: regular rhythm Heart sounds: S1 normal heart sound present and S2 normal heart sound present GI Palpation (GI): Soft to palpation and nontender Auscultation: normal bowel sounds Skin General skin exam: rashes and/or lesions noted Neuro Cranial nerves: Yes Equal, round and reactive pupils present Extrem General: Yes edema Assessment & Plan Assessment & Plan (1) Asthma: Code(s): J45.909 - Unspecified asthma, uncomplicated Category: Medical Qualifiers: Asthma complication type: with acute exacerbation Asthma persistence: persistent Asthma severity: severe Qualified Code(s): J45.51 - Severe persistent asthma with (acute) exacerbation (2) Chronic allergic rhinitis: Code(s): J30.9 - Allergic rhinitis, unspecified Category: Medical (3) GEORGIE (obstructive sleep apnea): Onset Date: ~2007 Code(s): G47.33 - Obstructive sleep apnea (adult) (pediatric) Category: Medical (4) GERD (gastroesophageal reflux disease): Code(s): K21.9 - Gastro-esophageal reflux disease without esophagitis Category: Medical Qualifiers: Esophagitis presence: without esophagitis Qualified Code(s): K21.9 - Gastro-esophageal reflux disease without esophagitis (5) Pneumonia: Code(s): J18.9 - Pneumonia, unspecified organism Category: Medical Plan complete Abx Prednisone taper Short-acting beta agonist as needed stop Trelegy inhaler 200 mcg daily start Wixela Epi pen as needed Pepcid Benadryl as needed Astelin nasal spray Antihistamines Bloodwork and CXR in 3-4 weeks Needs to restart Xolair twice a month continue CPAP , needs supplies weight management Lung cancer screening program Follow-up in 3-4 months Orders: Orders Immunoglobulins,IgG IgA IgM Today J18.9 - Pneumonia, unspecified organism, J45.51 - Severe persistent asthma with (acute) exacerbation XR chest 2V Today J18.9 - Pneumonia, unspecified organism Erythrocyte Sedimentation Rate Today J18.9 - Pneumonia, unspecified organism, J45.51 - Severe persistent asthma with (acute) exacerbation Immunoglobulin E Today J18.9 - Pneumonia, unspecified organism, J45.51 - Severe persistent asthma with (acute) exacerbation Complete Blood Count Auto Diff Today J18.9 - Pneumonia, unspecified organism, J45.51 - Severe persistent asthma with (acute) exacerbation Basic Metabolic Panel Today J18.9 - Pneumonia, unspecified organism, J45.51 - Severe persistent asthma with (acute) exacerbation Medications: New prednisone PO daily; Take 6 tabs daily x 3 days, then 5 tabs x 3 days, then 4 tabs x 3 days, then 3 tabs x 3 days, then 2 tabs daily x 3 days, then 1 tab x 3 days to complete. 63 tabs 0RF 18 days fluticasone propion-salmeterol 250-50 mcg/dose (Wixela Inhub) 1 inh inhalation Q12H 60 ea 11RF 30 days aspirin 81 mg PO DAILY 30 tabs 0RF 30 days Changed From azelastine 2 sprays intranasal BID To azelastine 2 sprays intranasal BID 30 mL 11RF 30 days From levalbuterol tartrate 45 mcg/actuation (Xopenex HFA) 1 puff inhalation Q4- 6H PRN Shortness Of Breath Or Wheezing To levalbuterol tartrate 45 mcg/actuation (Xopenex HFA) 2 puffs inhalation Q4-6H PRN 15 grams 11RF Shortness Of Breath Or Wheezing 30 days Refilled albuterol sulfate 2.5 mg (3 mL) inhalation Q6H PRN 360 mL 11RF for wheezing 30 days Coding Level of Care Code Est Pt Level 4 (28148) Diagnoses Severe persistent asthma with acute exacerbation J45.51 Asthma complication type: with acute exacerbation Asthma persistence: persistent Asthma severity: severe Chronic allergic rhinitis J30.9 GEORGIE (obstructive sleep apnea) G47.33 Gastroesophageal reflux disease without esophagitis K21.9 Esophagitis presence: without esophagitis Pneumonia J18.9 Time Spent (min) 17
--- OUTSIDE RECORDS SUMMARY | 2025-02-16 16:22 | XMS_ITS | Encounter Summary ---
Author Organization [employer] Address [address] [facility] [address] [place] [address] Care Team Providers Care Information Engineer Name Role Phone Lilian Mcclellan MINERAL INDUSTRY TEACHER Primary Care Provider [phone] Mono Huggins Unavailable Unavailable Reason for Referral * Consultation (Routine) - Closed Specialty Diagnoses / Procedures Referred By Contac t Referred To Contact Pharmacy Diagnoses Diastolic dysfunction without heart failure Sun King MD [address] [place] [address] Phone: tel: fax: Referral ID Status Reason Start Date Expiration Date V isits Requested Visits Authorized [id number] Closed Continuity of Care 03/17/2024 03/17/2025 6 6 Encounter Details Date Type Department Care Team (Late st Contact Info) Description 03/17/2024 Orders Only [facility] [address] [place], [place] [id number] Sun King MD [address], [place] [phone] Diastolic dysfunction without heart failure (Primary Dx) [...] Description 03/03/2025 2:45 PM EST Office Visit [facility] [address] [place] [id number] [place], [place], [facility] [address] [place] [address] 05/21/2025 3:15 PM EDT Office Visit [facility] [address] [place] [id number] Halima Hickman MD [address] [place] [id number] Scheduled Referrals Name Type Priority Associated Diagnoses [...] documented as of this encounter Care Teams Information Engineer Relationship Specialty Start Date End Date Lilian Mcclellan FNP [address] [place] [address] PCP - General Family Medicine 04/26/22 Mono Huggins FNP [address] [place] [address] Nurse Practitioner Family Medicine 01/21/23 Maureen Gastelum Culinary Art TeacherTool Room Machinist 02/11/24 documented as of this encounter
--- OUTSIDE RECORDS SUMMARY | 2025-02-16 16:22 | XMS_ITS | Clinical Summary ---
Author Organization [employer] Address [address] [place] [address] [address] [place] [address] Care Team Providers Care Brick Off Bearer Name Role Phone Lilian Mcclellan 911 EMERGENCY DISPATCHER Primary Care Provider [phone] Mono Huggins 911 EMERGENCY DISPATCHER Unavailable Unavailable Allergies Active Allergy Reactions Criticality Noted Date Comments Gramineae Pollens Itching Medium 10/01/2023 Peanut-Containing Drug Products Rash Medium 10/01/2023 Penicillin V 12/03/1997 Other Reaction(s): rash Penicillins Rash Low 03/21/2022 [place] Pulp Swelling Medium 10/01/2023 [place] skin only Medications * This document contains [...] HOURS DIRECTED 30 patch 1 024 Active naphazoline-pheni ramine (Naphcon-A) 0.025-0.3 % ophthalmic [...] as needed for anxiety 40 tablet 02/02/20 25 5:56 PM EST 2025 Active hydrOXYzine HCl (Atarax) 25 MG tabletIndications :Anxiety Take one tab during the day, may take two tabs at bedtime for anxiety as needed. 90 tablet 02/09/20 25 2:10 PM EST Active Trelegy Ellipta 200-62.5-25 MCG/ACT aerosol powderIndications :Severe persistent asthma with acute exacerbation (HCC) Inhale 1 puff Once per day. 1 each Active albuterol (2.5 MG/3ML) 0.083% nebulizer solutionIndicatio [...] 20 tablet 02/09/20 25 2:10 PM EST 2024 Active levocetirizine (Xyzal) 5 MG tabletIndications :Severe persistent asthma with acute exacerbation (HCC) Take 1 tablet (5 mg) by mouth Once per day. 90 tablet Active clotrimazole (Lotrimin) 1 % creamIndications: Groin rash APPLY TOPICALLY TO THE AFFECTED AREA(S) TWICE DAILY DIRECTED FOR 28 DAYS 30 g 2 025 Active levocetirizine (Xyzal) 5 MG tablet Take 5 mg by mouth in the morning. 023 2024 Discontinued(R eorder (will not trigger notification to Pharmacy)) Incruse Ellipta 62.5 MCG/ACT aerosol powderIndications :Severe persistent asthma without complication (HCC) INHALE 1 PUFF EVERY DAY AT THE SAME TIME 30 each 11 024 2024 Discontinued clotrimazole (Lotrimin) 1 % creamIndications: Groin rash APPLY TOPICALLY TWICE DAILY FOR 28 DAYS 30 g 2 025 2024 Discontinued hydrOXYzine HCl (Atarax) 25 MG tabletIndications :Anxiety Take one tab during the day, may take two tabs at bedtime for anxiety as needed. 90 tablet 2024 Discontinued(R eorder (will not trigger notification [...] 30 tablet 02/02/20 25 5:56 PM EST 2024 albuterol (2.5 MG/3ML) 0.083% nebulizer solutionIndicatio [...] mL 1 02/02/20 25 5:56 PM EST 2024 Discontinued(R eorder (will not trigger notification to Pharmacy)) Trelegy Ellipta 200-62.5-25 MCG/ACT aerosol powder Inhale 1 puff Once per day. 2024 Discontinued(R eorder (will not trigger notification to Pharmacy)) tobramycin-dexAME THasone (Tobradex) ophthalmic suspensionIndicat ions:Ocular rosacea Administer 2 drops into both eyes 4 times daily for 7 days. 5 mL 02/06/20 2:50 PM EST 2024 azithromycin (Zithromax) 250 MG tabletIndications :Severe persistent asthma with acute exacerbation (HCC) Take 2 tablets (500 mg) by mouth Once per day for 1 day, THEN 1 tablet (250 mg) Once per day for 4 days. 6 tablet 02/09/20 2:10 PM EST 2024 benzonatate (Tessalon) 200 MG capsule Take 1 capsule (200 mg) by mouth if needed in the morning, at noon, and at bedtime for cough for up to 7 days. Do not crush or chew. 20 capsule 02/09/20 2:10 PM EST 2024 Hospital, Clinic, or Other [...] (11/18/2024 9:43 AM EDT): Orders: Referral to [facility] Derm Skin Adult; Future Sleep apnea [...] upcoming appt. Pap: Followed by [facility], Dr. Edie Robbins-scope: 2019, repeat 5 years BMD: Routine age 67 LDCT done 08/24/22 was Lung RADS 2 - plan is for yearly LDCT HCV Screen: Neg 05/2022 HIV Screen: Neg 05/2022 Screening Labs: A1c 5.6 05/2022 Severe persistent asthma 05/09/2022 Overview (06/12/2022): Followed by [facility] Severe allergic asthma Incruse Ellipta Levalbuterol [...] any questions or concerns, she should call [facility] BH Department and/or PCP. I have [...] be retiring in approx 1 year, but [facility] should have new provider in place [...] plan. Palpitations 10/15/2017 Overview (06/12/2022): Followed by [facility] cardiology Metoprolol XR 25mg daily Assessment & Plan (11/18/2022 4:26 PM EDT): - No current sx during office visit - 2020 echo with normal EF. Mild elevation in LV filling pressure. -2017 diagnostic cardiac sonographer with PACs and atrial tachycardia - Will submit referral to [facility] cardiology per patient request - Continue daily metoprolol Obesity 04/09/2017 Knee pain 12/04/2016 Keratosis 05/11/2016 Seborrheic keratosis 05/11/2016 Gastroesophageal reflux disease 06/06/2015 Overview (05/09/2022): Followed by [facility] GI Shoulder pain 06/06/2015 Chronic pain 06/06/2015 [...] organization. Date Type Department Care Team Description 02/15/2025 Telephone [facility] [address] Lilian Mcclellan FNP Prior Authorization (PA: Darrius) 02/12/2025 Refill [facility] [address] [facility] [place] [address] Fair[place] givens FNP Groin rash 02/12/2025 Orders Only GENERIC EXTERNAL DATA DEPARTMENT Provider, Generic External Data 02/08/2025 11:30 AM EST Office Visit [facility] [place] [address] Christofer Zelaya ANP Severe persistent asthma with acute exacerbation (HCC) (Primary Dx) 02/08/2025 Results Follow-Up [facility] [address] [place] [address] Christofer Zelaya ANP XR Chest 2 Views 02/08/2025 Telephone [facility] [place] [address] Christofer Zelaya ANP 02/08/2025 Travel 02/08/2025 Telephone [facility] MED[facility] [address] [place] [address] Lilian Mcclellan FNP asthma status check 02/05/2025 Refill [facility] [place] [address] FairfaxLilian givens FNP Restrictive lung disease 02/03/2025 3:30 PM EST Office Visit [facility] OPTOMETRY [address] [place] [address] Tarka, Cindy, OD Ocular rosacea (Primary Dx) 02/03/2025 Travel 02/01/2025 3:15 PM EST Office Visit [facility] [address] [facility] [place] [address] Lilian Mcclellan FNP Severe persistent asthma with acute exacerbation (HCC) (Primary Dx); Viral upper respiratory illness; Class 3 severe obesity due to excess calories with serious comorbidity and body mass index (BMI) of 40.0 to 44.9 in adult (HCC); Anxiety; Ocular rosacea 02/01/2025 Travel 01/29/2025 3:45 PM EST Office Visit [facility] MED[facility] [address] [place] [address] Halima Hickman MD Inflamed skin tag 01/29/2025 Travel 01/28/2025 Telephone [facility] [address] [place] [address] Lilian Mcclellan FNP Referral 01/20/2025 Telephone [facility] [address] [place] [address] Lilian Mcclellan FNP chart prep 12/11/2024 Travel 12/11/2024 Telephone [facility] [address] [place] [address] Lilian Mcclellan FNP Nurse Triage from Last [...] Description 03/03/2025 2:45 PM EST Office Visit [facility] MEDICINE [address] [place] [address] FairfaxLilian 911 EMERGENCY DISPATCHER [address] [place] [address] 05/21/2025 3:15 PM EDT Office Visit [facility] MED[facility] [address] [place] [address] Halima Hickman MD [address] [place] [address] Health Maintenance Due Date Last Done Comments [...] Name Priority Date/Time Associated Diagnosis Comments XR HIP LEFT WITH PELVIS 1 VIEW Routine 02/14/2025 3:19 PM EST XR KNEE 1-2 VIEWS LEFT Routine 02/14/2025 3:17 PM EST LOWER EXTREMITY VENOUS DUPLEX LEFT Routine 02/14/2025 9:15 AM EST LACTIC ACID Routine 02/12/2025 11:59 AM EST CTA CHEST PE PROTOCAL Routine 02/12/2025 9:[address] ABDOMEN PELVIS W CONTRAST Routine 02/12/2025 7:[address] HEAD WO CONTRAST Routine 02/12/2025 7 :43 AM EST URINALYSIS, COMPLETE, WITH REFLEX TO CULTURE Routine 02/12/2025 6:10 AM EST HIGH SENSITIVITY TROPONIN I Routine 02/12/2025 4:56 AM EST LIPASE Routine 02/12/2025 4:56 AM EST MAGNESIUM Routine 02/12/2025 4:56 AM EST BASIC METABOLIC PANEL Routine 02/12/2025 4:56 AM EST HEPATIC FUNCTION PANEL Routine 02/12/2025 4:56 AM EST CBC WITH AUTO DIFFERENTIAL Routine 02/12/2025 4:56 AM EST SARS COV2/INFLUENZA A/B AND RSV RNA QL NAAT Routine 02/12/2025 4:44 AM EST XR CHEST 2 VIEWS Routine 02/08/2025 1:30 [...] Relevant to Health Maintenance Results * XR Hip left with Pelvis 1 view (02/14/2025 3:19 PM EST) Anatomical Region Laterality Modality Lower Extremities, Hip Bilateral Radiograp hic Imaging 02/14/2025 3:19 PM EST Narrative 02/14/2025 3:20 PM EST [address] [address] XRay Report Signed Patient: Rita Patel MR#: [id number] : 1960 Acct:[id number] Age/Sex: 64 / F ADM Date: 02/12/25 Loc: HO.S3 352-[address]: Isaiah Green MD Ordering Physician: Isaiah Green MD Date of Service: 02/14/25 Procedure(s): XR hip LT w PEL1V Accession Number(s): [id number] cc: [facility]; Isaiah Green MD Reason for Exam: fall CLINICAL HISTORY: fall 3 view, pelvis and left hip Comparison: None provided Findings: No acute fracture or dislocation. Mild narrowing and degenerative spurring in the bilateral hip joints. The soft tissues are unremarkable. IMPRESSION: 1. No acute fracture or dislocation. 2. Mild osteoarthritic changes. This document has been electronically signed by: Riri Hartman DO on 02/14/2025 15:19:02 Dictated By: Riri Hartman MD Signed By: <Electronically signed by Riri Hartman MD in OV> 02/14/25 1519 DD/ 18 TD/TT: 02/14/251518 Ton [employer] Filler: Procedure Note Donotuseinterpreter, Image - 02/14/[address] [address] XRay Report Signed Patient: Rita Patel DMR#: [id number] : 1960Acct:[id number] Age/Sex: 64 / FADM Date: 02/12/25 Loc: HO.S3 352-[address]: Isaiah Green MD Ordering Physician: Isaiah Green MD Date of Service: 02/14/25 Procedure(s): XR hip LT w PEL1V Accession Number(s): [id number] cc: [facility]; Isaiah Green MD Reason for Exam: fall CLINICAL HISTORY: fall 3 view, pelvis and left hip Comparison: None provided Findings: No acute fracture or dislocation. Mild narrowing and degenerative spurring in the bilateral hip joints. The soft tissues are unremarkable. IMPRESSION: 1. No acute fracture or dislocation. 2. Mild osteoarthritic changes. This document has been electronically signed by: Riri Hartman DO on 02/14/2025 15:19:02 Dictated By: Riri Hartman MD Signed By: <Electronically signed by Riri Hartman MD in OV> 02/14/25 1519 DD/ 18 TD/TT: 02/14/251518 Ton Container Filler: [facility] External Provider IMG XR PROCEDURES Edited Result - Final * XR Knee 1-2 Views Left (02/14/2025 3:17 PM EST) Anatomical Region Laterality Modality Lower Extremities, Knee Left Radiogra phic Imaging 02/14/2025 3:17 PM EST Narrative 02/14/2025 3:19 PM EST [place] [address] XRay Report Signed Patient: Rita Patel MR#: [id number] : 1960 Acct:[id number] Age/Sex: 64 / F ADM Date: 02/12/25 Loc: HO.S3 352-[address]: Isaiah Green MD Ordering Physician: Isaiah Green MD Date of Service: 02/14/25 Procedure(s): XR knee LT 2V Accession Number(s): [id number] cc: [facility]; Isaiah Green MD Reason for Exam: fall CLINICAL HISTORY: fall 2 view left knee Comparison: None provided Findings: Bones intact. No dislocations. Mild tricompartmental joint space narrowing with degenerative spurring. No joint effusion. No radiopaque foreign body. Small suprapatellar spur /quadriceps tendon enthesophyte. IMPRESSION: No acute fracture, dislocation or significant joint effusion. This document has been electronically signed by: Riri Hartman DO on 02/14/2025 15:17:31 Dictated By: Riri Hartman MD Signed By: <Electronically signed by Riri Hartman MD in OV> 02/14/251517 DD/ 16 TD/TT: 02/14/251516 Ton Container Filler: Procedure Note Donotuseinterpreter, Image - 02/14/2025 [place] [address] XRay Report Signed Patient: Rita Patel DMR#: [id number] : 1960Acct:[id number] Age/Sex: 64 / FADM Date: 02/12/25 Loc: .S3 352-[address]: Isaiah Green MD Ordering Physician: Isaiah Green MD Date of Service: 02/14/25 Procedure(s): XR knee LT 2V Accession Number(s): [id number] cc: [facility]; Isaiah Green MD Reason for Exam: fall CLINICAL HISTORY: fall 2 view left knee Comparison: None provided Findings: Bones intact. No dislocations. Mild tricompartmental joint space narrowing with degenerative spurring. No joint effusion. No radiopaque foreign body. Small suprapatellar spur /quadriceps tendon enthesophyte. IMPRESSION: No acute fracture, dislocation or significant joint effusion. This document has been electronically signed by: Riri Hartman DO on 02/14/2025 15:17:31 Dictated By: Riri Hartman MD Signed By: <Electronically signed by Riri Hartman MD in OV> 02/14/251517 DD/ TD/TT: 02/14/251516 Ton Container Filler: [facility] External Provider IMG XR PROCEDURES Edited Result - Final * Lower Extremity Venous Duplex (02/14/2025 9:15 AM EST) 02/14/2025 9:15 AM EST Narrative [facility] - 02/15/2025 8:58 AM EST [address] [address] Ultrasound Report Signed Patient: Rita Patel MR#: [id number] : 1960 Acct:[id number] Age/Sex: 64 / F ADM Date: 02/12/25 Loc: HO.S3 352-[address]: Isaiah Green MD Ordering Physician: Isaiah Green MD Date of Service: 02/14/25 Procedure(s): US venous duplex LE LT Accession Number(s): [id number] cc: [facility]; Isaiah Green MD Reason for Exam: fall swelling EXAMINATION: US TRIPLEX LOWER EXTREMITY, LEFT CLINICAL INFORMATION: Fall with swelling left leg. COMPARISON: None available. TECHNIQUE: Color-flow triplex imaging with spectral analysis and compression Doppler were performed on the left lower extremity. FINDINGS: Respiratory variation, normal compression and augmented flow are noted throughout the left lower extremity. The visualized common femoral vein, superficial femoral vein, profunda femoral vein, popliteal vein and midcalf peroneal and posterior tibial venous segments show no evidence of deep venous thrombosis. There is no Short's cyst. US/US venous duplex LE LT IMPRESSION: No evidence of deep venous thrombosis involving the left lower extremity. Electronically signed by: Eleuterio Solis MD 02/15/2025 08:54 AM EST Dictated By: Eleuterio Solis MD Signed By: <Electronically signed by Eleuterio Solis MD in OV> 02/15/25 0854 DD/ 4 TD/TT: 02/14/25919 Ton Container Filler: OJ Procedure Note Donotuseinterpreter, Image - 02/15/[address] [address] Ultrasound Report Signed Patient: Rita Patel DMR#: [id number] : 1960Acct:[id number] Age/Sex: 64 / FADM Date: 02/12/25 Loc: [facility] 352[facility]: Isaiah Green MD Ordering Physician: Isaiah Green MD Date of Service: 02/14/25 Procedure(s): US venous duplex LE LT Accession Number(s): [id number] cc: [facility]; Isaiah Green MD Reason for Exam: fall swelling EXAMINATION: US TRIPLEX LOWER EXTREMITY, LEFT CLINICAL INFORMATION: Fall with swelling left leg. COMPARISON: None available. TECHNIQUE: Color-flow triplex imaging with spectral analysis and compression Doppler were performed on the left lower extremity. FINDINGS: Respiratory variation, normal compression and augmented flow are noted throughout the left lower extremity. The visualized common femoral vein, superficial femoral vein, profunda femoral vein, popliteal vein and midcalf peroneal and posterior tibial venous segments show no evidence of deep venous thrombosis. There is no Short's cyst. US/US venous duplex LE LT IMPRESSION: No evidence of deep venous thrombosis involving the left lower extremity. Electronically signed by: Eleuterio Solis MD 02/15/2025 08:54 AM EST Dictated By: Eleuterio Solis MD Signed By: <Electronically signed by Eleuterio Solis MD in OV> 02/15/25 0854 DD/ 0915 TD/TT: 02/14/25 0920 Ton Container Filler: OJ [facility] External Provider CV VASC ULAR PROCEDURES Edited Result - Final [facility] [address] [place] [address] * Lactic Acid (02/12/2025 11:59 AM EST) Lactic Acid 1.0 0.5 - 2.0 mmol/L [facility] 02/12/2025 11:5 9 AM EST 02/12/2025 12:03 PM EST us Generic External Data Provider LAB BLOOD ORDERAB LES Final Result [facility] [address] [place] [phone] * CTA Chest PE Protocal (02/12/2025 9:51 AM EST) Anatomical Region Laterality Modality Body, Chest Computed Tomogra phy 02/12/2025 9:51 AM EST Narrative 02/12/2025 10:35 AM EST [address] [address] [address] Scan Report Signed Patient: Rita Patel MR#: [id number] : 1960 Acct:[id number] Age/Sex: 64 / F ADM Date: 02/12/25 Loc: .ED Attending Dr: Ordering Physician: Ambika Naranjo MD Date of Service: 02/12/25 Procedure(s): CT angio chest PE protocol Accession Number(s): [id number] cc: [facility]; Ambika Naranjo MD Report Number: [id number]: Total DLP = 1031.00 mGy-cm Reason for Exam: o2 desaturations, syncope EXAMINATION: CT ANGIOGRAM CHEST CLINICAL INFORMATION: Syncope, O2 desaturations. COMPARISON: CT angiogram chest 06/17/2023. Chest radiograph dated 02/08/2025. TECHNIQUE: Multiple axial images were obtained through the chest after the administration of 85 mL of Omnipaque 350 intravenous contrast. Extensive vascular post-processing including two-dimensional and three-dimensional reformatted images were created and reviewed on an independent workstation. This CT examination was performed using dose optimization techniques as appropriate, variously including the following: *Automated exposure control *Adjustment of mA and/or kV according to patient size (this includes techniques or standardized protocols for targeted exams where dose is matched to indication/reason for exam; i.e. extremities or head) *Use of iterative reconstruction technique FINDINGS: VASCULAR: Study quality is adequate. There is no evidence of pulmonary embolus. Main pulmonary artery is normal in size. There is no evidence of right heart strain. Mild reflux of contrast into the IVC, likely indicating increased right heart pressures. The aorta is normal in caliber and appearance without acute aortic syndrome. The great vessels branch normally and are patent. There is mild cardiac enlargement. There is no pericardial effusion. No significant coronary artery calcifications are present. LUNGS: There is patchy nodular parenchymal opacification in the left lower lobe consistent with pneumonia. There is some associated groundglass attenuation and reticular changes. There is no pleural effusion. There is diffuse thickening of the small airways in keeping with inflammatory airways disease. The remainder of the lungs appear grossly clear. Minor atelectasis is present dependently. There is no suspicious pulmonary nodule identified allowing for limitations of underlying lung disease. PLEURA: There is no pleural effusion. No pleural mass or thickening. MEDIASTINUM: The esophagus is diffusely patulous. There is no mediastinal lymphadenopathy or mass. There are a few subcentimeter reactive appearing lymph nodes present. The partially imaged thyroid appears mildly globally enlarged without discrete nodule. AXILLA/CHEST WALL: No abnormal mass or lymphadenopathy present. Patient is morbidly obese. UPPER ABDOMEN: Please refer to the dedicated CT abdomen pelvis performed concurrently. OSSEOUS STRUCTURES: There is no suspicious lytic or blastic bone lesion evident. Mild degenerative changes of the thoracic spine. CT/CT angio chest PE protocol IMPRESSION: 1. There is no evidence of pulmonary embolus. There is no evidence of acute aortic syndrome. 2. There are consolidative changes in the left lower lobe consistent with bronchopneumonia. 3. There is diffuse thickening of the small airways in keeping with inflammatory/infectious airways disease. 4. There is mild cardiac enlargement. 5. The esophagus is diffusely patulous. 6. Additional ancillary findings as discussed in the body of the report. Electronically signed by: Nilo Vidal MD 02/12/2025 10:32 AM EST Dictated By: Nilo Vidal MD Signed By: <Electronically signed by Nilo Vidal MD in OV> 02/12/25 1032 DD/ 0951 TD/TT: 02/12/25 1020 Ton Container Filler: Procedure Note Donotuseinterpreter, Image - 02/12/[address] [address] [address] Scan Report Signed Patient: Rita Patel DMR#: [id number] : 1960Acct:[id number] Age/Sex: 64 / FADM Date: 02/12/25 Loc: HO.ED Attending Dr: Ordering Physician: Ambika Naranjo MD Date of Service: 02/12/25 Procedure(s): CT angio chest PE protocol Accession Number(s): [id number] cc: [facility]; Ambika Naranjo MD Report Number: [id number]: Total DLP = 1031.00 mGy-cm Reason for Exam: o2 desaturations, syncope EXAMINATION: CT ANGIOGRAM CHEST CLINICAL INFORMATION: Syncope, O2 desaturations. COMPARISON: CT angiogram chest 06/17/2023. Chest radiograph dated 02/08/2025. TECHNIQUE: Multiple axial images were obtained through the chest after the administration of 85 mL of Omnipaque 350 intravenous contrast. Extensive vascular post-processing including two-dimensional and three-dimensional reformatted images were created and reviewed on an independent workstation. This CT examination was performed using dose optimization techniques as appropriate, variously including the following: *Automated exposure control *Adjustment of mA and/or kV according to patient size (this includes techniques or standardized protocols for targeted exams where dose is matched to indication/reason for exam; i.e. extremities or head) *Use of iterative reconstruction technique FINDINGS: VASCULAR: Study quality is adequate. There is no evidence of pulmonary embolus. Main pulmonary artery is normal in size. There is no evidence of right heart strain. Mild reflux of contrast into the IVC, likely indicating increased right heart pressures. The aorta is normal in caliber and appearance without acute aortic syndrome. The great vessels branch normally and are patent. There is mild cardiac enlargement. There is no pericardial effusion. No significant coronary artery calcifications are present. LUNGS: There is patchy nodular parenchymal opacification in the left lower lobe consistent with pneumonia. There is some associated groundglass attenuation and reticular changes. There is no pleural effusion. There is diffuse thickening of the small airways in keeping with inflammatory airways disease. The remainder of the lungs appear grossly clear. Minor atelectasis is present dependently. There is no suspicious pulmonary nodule identified allowing for limitations of underlying lung disease. PLEURA: There is no pleural effusion. No pleural mass or thickening. MEDIASTINUM: The esophagus is diffusely patulous. There is no mediastinal lymphadenopathy or mass. There are a few subcentimeter reactive appearing lymph nodes present. The partially imaged thyroid appears mildly globally enlarged without discrete nodule. AXILLA/CHEST WALL: No abnormal mass or lymphadenopathy present. Patient is morbidly obese. UPPER ABDOMEN: Please refer to the dedicated CT abdomen pelvis performed concurrently. OSSEOUS STRUCTURES: There is no suspicious lytic or blastic bone lesion evident. Mild degenerative changes of the thoracic spine. CT/CT angio chest PE protocol IMPRESSION: 1. There is no evidence of pulmonary embolus. There is no evidence of acute aortic syndrome. 2. There are consolidative changes in the left lower lobe consistent with bronchopneumonia. 3. There is diffuse thickening of the small airways in keeping with inflammatory/infectious airways disease. 4. There is mild cardiac enlargement. 5. The esophagus is diffusely patulous. 6. Additional ancillary findings as discussed in the body of the report. Electronically signed by: Nilo Vidal MD 02/12/2025 10:32 AM EST Dictated By: Nilo Vidal MD Signed By: <Electronically signed by Nilo Vidal MD in OV> 02/12/25 1032 DD/ 0951 TD/TT: 02/12/25 1020 Ton Container Filler: [facility] External Provider IMG CT PROCEDURES Final Result * CT Abdomen Pelvis w/ Contrast (02/12/2025 7:43 AM EST) Anatomical Region Laterality Modality Body, Pelvis, Abdomen Computed T omography 02/12/2025 7:43 AM EST Narrative 02/12/2025 10:33 AM EST [address] [address] [address] Scan Report Signed Patient: Rita Patel MR#: [id number] : 1960 Acct:[id number] Age/Sex: 64 / F ADM Date: 02/12/25 Loc: HO.ED Attending Dr: Ordering Physician: Ambika Naranjo MD Date of Service: 02/12/25 Procedure(s): CT abdomen pelvis w IV con Accession Number(s): [id number] cc: [facility]; Ambika Naranjo MD Report Number: [id number]: Total DLP = 0.00 mGy-cm Reason for Exam: diffuse abd pain EXAMINATION: CT ABDOMEN AND PELVIS WITH CONTRAST CLINICAL INFORMATION: diffuse abdominal pain COMPARISON: 10/30/2023 TECHNIQUE: Multidetector volumetric images were obtained from the superior aspect of the liver through the pubic symphysis following administration 85 mL of Omnipaque 350 intravenous contrast. Sagittal and coronal reformatted images were obtained on the technologist's workstation. Oral contrast: No This CT examination was performed using dose optimization techniques as appropriate, variously including the following: *Automated exposure control *Adjustment of mA and/or kV according to patient size (this includes techniques or standardized protocols for targeted exams where dose is matched to indication/reason for exam; i.e. extremities or head) *Use of iterative reconstruction technique FINDINGS: LUNG BASES: Patchy and confluent opacity is present in the left lower lobe concerning for pneumonia. LIVER, GALLBLADDER, AND BILIARY TREE: There is mild intrahepatic biliary ductal dilation. There is a calcified stone within the gallbladder. There is no gallbladder wall thickening or extrahepatic bile duct dilation. PANCREAS: Unremarkable. SPLEEN: Unremarkable. ADRENAL GLANDS: Unremarkable. KIDNEYS AND URETERS: The kidneys are normal in size, shape, and attenuation. No hydronephrosis, hydroureter, or calculi seen. No perinephric stranding. BLADDER: Unremarkable. GASTROINTESTINAL TRACT: The small and large bowel are unremarkable. The appendix is unremarkable. ABDOMINAL WALL: Again seen is a very small umbilical hernia containing adipose tissue. LYMPH NODES: Normal. VASCULAR: Unremarkable. PELVIC VISCERA: Uterus and ovaries are unremarkable. OSSEOUS STRUCTURES: Unremarkable. CT/CT abdomen pelvis w IV con IMPRESSION: Suspected left lower lobe pneumonia. Cholelithiasis and minimal intrahepatic biliary ductal dilation without gallbladder wall thickening. Fleischner guidelines were followed. Electronically signed by: Jassi Aragon MD 02/12/2025 10:30 AM EST Dictated By: Jassi Aragon MD Signed By: <Electronically signed by Jassi Aragon MD in OV> 02/12/25 1030 DD/ 0743 TD/TT: 02/12/25 1020 Ton Container Filler: Procedure Note Donotuseinterpreter, Image - 02/12/[address] [address] [address] Scan Report Signed Patient: Rita Patel DMR#: [id number] : 1960Acct:[id number] Age/Sex: 64 / FADM Date: 02/12/25 Loc: HO.ED Attending Dr: Ordering Physician: Ambika Naranjo MD Date of Service: 02/12/25 Procedure(s): CT abdomen pelvis w IV con Accession Number(s): [id number] cc: [facility]; Ambika Naranjo MD Report Number: [id number]: Total DLP = 0.00 mGy-cm Reason for Exam: diffuse abd pain EXAMINATION: CT ABDOMEN AND PELVIS WITH CONTRAST CLINICAL INFORMATION: diffuse abdominal pain COMPARISON: 10/30/2023 TECHNIQUE: Multidetector volumetric images were obtained from the superior aspect of the liver through the pubic symphysis following administration 85 mL of Omnipaque 350 intravenous contrast. Sagittal and coronal reformatted images were obtained on the technologist's workstation. Oral contrast: No This CT examination was performed using dose optimization techniques as appropriate, variously including the following: *Automated exposure control *Adjustment of mA and/or kV according to patient size (this includes techniques or standardized protocols for targeted exams where dose is matched to indication/reason for exam; i.e. extremities or head) *Use of iterative reconstruction technique FINDINGS: LUNG BASES: Patchy and confluent opacity is present in the left lower lobe concerning for pneumonia. LIVER, GALLBLADDER, AND BILIARY TREE: There is mild intrahepatic biliary ductal dilation. There is a calcified stone within the gallbladder. There is no gallbladder wall thickening or extrahepatic bile duct dilation. PANCREAS: Unremarkable. SPLEEN: Unremarkable. ADRENAL GLANDS: Unremarkable. KIDNEYS AND URETERS: The kidneys are normal in size, shape, and attenuation. No hydronephrosis, hydroureter, or calculi seen. No perinephric stranding. BLADDER: Unremarkable. GASTROINTESTINAL TRACT: The small and large bowel are unremarkable. The appendix is unremarkable. ABDOMINAL WALL: Again seen is a very small umbilical hernia containing adipose tissue. LYMPH NODES: Normal. VASCULAR: Unremarkable. PELVIC VISCERA: Uterus and ovaries are unremarkable. OSSEOUS STRUCTURES: Unremarkable. CT/CT abdomen pelvis w IV con IMPRESSION: Suspected left lower lobe pneumonia. Cholelithiasis and minimal intrahepatic biliary ductal dilation without gallbladder wall thickening. Fleischner guidelines were followed. Electronically signed by: Jassi Aragon MD 02/12/2025 10:30 AM EST Dictated By: Jassi Aragon MD Signed By: <Electronically signed by Jassi Aragon MD in OV> 02/12/25 1030 DD/ 0743 TD/TT: 02/12/25 1020 Ton Container Filler: [facility] External Provider IMG CT PROCEDURES Final Result * CT Head w/o Contrast (02/12/2025 7:43 AM EST) Anatomical Region Laterality Modality Head, Neck Computed Tomogra phy 02/12/2025 7:43 AM EST Narrative 02/12/2025 8:11 AM EST [place] [address] CT Scan Report Signed Patient: Rita Patel MR#: [id number] : 1960 Acct:[id number] Age/Sex: 64 / F ADM Date: 02/12/25 Loc: HO.ED Attending Dr: Ordering Physician: Ambika Naranjo MD Date of Service: 02/12/25 Procedure(s): CT head/brain wo IV con Accession Number(s): [id number] cc: [facility]; Ambika Naranjo MD Report Number: [id number]: Total DLP = 758.00 mGy-cm Reason for Exam: syncope, hit head, PENA EXAMINATION: CT HEAD WITHOUT IV CONTRAST HISTORY: syncope, hit head, PENA. TECHNIQUE: Unenhanced helical CT of the head was performed per standard departmental protocol. Coronal and sagittal reformats of the head were also evaluated. One or more of the following techniques was used for dose reduction: Automated exposure control, adjustment of the mA and/or kV according to patient size, use of iterative reconstruction technique. DLP: 758 mGy-cm COMPARISON: Comparison is made with the prior examination dated 05/29/2024. FINDINGS: BRAIN: The brain parenchyma is unremarkable. [...] abnormality. Electronically signed by: Ridge Ugalde MD 02/12/2025 08:09 AM EST Dictated By: Ridge Ugalde MD Signed By: <Electronically signed by Ridge Ugalde MD in OV> 02/12/25 0809 DD/ 0743 TD/TT: 02/12/25 0802 Ton Container Filler: Procedure Note Donotuseinterpreter, Image - 02/12/[address] [place] [address] [address] Scan Report Signed Patient: Rita Patel DMR#: [id number] : 1960Acct:[id number] Age/Sex: 64 / FADM Date: 02/12/25 Loc: HO.ED Attending Dr: Ordering Physician: Ambika Naranjo MD Date of Service: 02/12/25 Procedure(s): CT head/brain wo IV con Accession Number(s): [id number] cc: [facility]; Ambika Naranjo MD Report Number: [id number]: Total DLP = 758.00 mGy-cm Reason for Exam: syncope, hit head, PENA EXAMINATION: CT HEAD WITHOUT IV CONTRAST HISTORY: syncope, hit head, PENA. TECHNIQUE: Unenhanced helical CT of the head was performed per standard departmental protocol. Coronal and sagittal reformats of the head were also evaluated. One or more of the following techniques was used for dose reduction: Automated exposure control, adjustment of the mA and/or kV according to patient size, use of iterative reconstruction technique. DLP: 758 mGy-cm COMPARISON: Comparison is made with the prior examination dated 05/29/2024. FINDINGS: BRAIN: The brain parenchyma is unremarkable. [...] abnormality. Electronically signed by: Ridge Ugalde MD 02/12/2025 08:09 AM EST RP Dictated By: Ridge Ugaled MD Signed By: <Electronically signed by Ridge Ugalde MD in OV> 02/12/25 0809 DD/ 0743 TD/TT: 02/12/25 0802 Ton Container Filler: [facility] External Provider IMG CT PROCEDURES Final Result * (ABNORMAL) Urinalysis, Complete, with Reflex to Culture (02/12/2025 6:10 AM EST) Color Urine Yellow [facility] Appearance Urine Clear [facility] PH 6.0 5.0 - 9.0 [facility] Glucose Urine UA Negative Negative mg/dL [facility] Urine Blood Negative Negative [facility] Specific [place] - Urine >=1.030(H) 1.005 - 1.025 [facility] Urine Protein 30 (1+)(A) Neg-Trace mg/dL [facility] Urine Ketones Trace Negative mg/dL [facility] Nitrite Urine Negative Negative [facility] Leukocyte Esterase Urine Trace(A) Negative [facility] RBC Urine 0-2 0 - 2 /HPF [facility] Urine WBC 11-20(A) 0 - 5 /HPF [facility] Urine Squamous Epithelial Cell 6-10 0 - 2 /HPF [facility] Urine Bacteria Trace None Seen [facility] Hyaline Casts, Urine 0-2 0 - 2 /LPF [facility] 02/12/2025 6:10 AM EST 02/12/2025 6:13 AM EST Narrative [facility] - 02/12/2025 6:25 AM EST [id number], Clean Catch Generic External Data Provider LAB URINE ORDERAB LES Final Result Performing Organization Address [facility] Co de Phone Number [facility] [address] [place] [phone] * High Sensitivity Troponin I (02/12/2025 4:56 AM EST) [facility] TROPONIN I HIGH SENSITIVITY 2.7 <3.5 - 17.0 ng/L [facility] Comment:The Reeder high sens itivity Troponin-I results should beused in conjunction with other diagnostic information suchas ECG, clinical observations and information, and patientsymptoms to aid in the diagnosis of RI. 02/12/2025 4:56 AM EST 02/12/2025 6:13 AM EST Generic External Data Provider LAB BLOOD ORDERAB LES Final Result Performing Organization Address [facility] Co de Phone Number [facility] [address] [place] [phone] * (ABNORMAL) CBC auto differential (02/12/2025 4:56 AM EST) Pathologist [facility] White Blood Count 21.8(H) 4.8 - 10.8 X10*3/uL [facility] Red Blood Count 4.05(L) 4.20 - 5.50 X10*6/uL [facility] Hemoglobin 11.8(L) 12.0 - 16.0 g/dl [facility] Hematocrit 35.5(L) 37.0 - 47.0 % [facility] Mean Corpuscular Volume 87.7 80.0 - 98.0 fL [facility] Mean Corpuscular Hemoglobin 29.1 27.0 - 33.0 pg [facility] Mean Corpuscular HGB Conc 33.2 31.0 - 35.0 g/dl [facility] Red Cell Distribution Width 14.5 11.0 - 16.0 % [facility] Platelet Count 331 160 - 400 X10*3/uL [facility] Mean Platelet Volume 10.7 9.4 - 12.3 fL [facility] Neutrophils Percent Auto 87.2(H) 45 - 73 % [facility] Imm Gran Pct Auto 0.5(H) 0.0 - 0.4 % [facility] Lymphocytes Percent Auto 9.0(L) 20 - 40 % [facility] Monocytes Percent Auto 3.1 2 - 11 % [facility] Eosinophils Percent Auto 0.0 0 - 4 % [facility] Basophils Percent Auto 0.2 0 - 2 % [facility] NRBC Pct Auto 0.0 0.0 - 0.2 /100WBC [facility] Neutrophils Absolute Auto 19.0(H) 2.0 - 8.3 x10*3/uL [facility] Imm Gran Abs Auto 0.11(H) 0.00 - 0.03 X10*3/uL [facility] Lymphocytes Absolute Auto 2.0 1.2 - 4.9 X10*3/uL [facility] Monocytes Absolute Auto 0.7 0.1 - 1.2 X10*3/uL [facility] Eosinophils Absolute Auto 0.0 0.0 - 0.4 X10*3/uL [facility] Basophils Absolute Auto 0.0 0.0 - 0.2 X10*3/uL [facility] NRBC Abs Auto 0.000 0.0 - 0.012 X10*3/uL [facility] 02/12/2025 4:56 AM EST 02/12/2025 6:13 AM EST us Generic External Data Provider LAB BLOOD ORDERAB LES Final Result Performing Organization Address [facility] de Phone Number [facility] [address] [place] [phone] * Magnesium (02/12/2025 4:56 AM EST) Magnesium 2.2 1.6 - 2.6 mg/dL [facility] 02/12/2025 4:56 AM EST 02/12/2025 6:13 AM EST Generic External Data Provider LAB BLOOD ORDERAB LES Final Result Performing Organization Address [facility] Phone Number [facility] [address] [place] [phone] * Lipase (02/12/2025 4:56 AM EST) Lipase 43 8 - 78 U/L [facility] 02/12/2025 4:56 AM EST 02/12/2025 6:13 AM EST Generic External Data Provider LAB BLOOD ORDERAB LES Final Result Performing Organization Address [facility] Phone Number [facility] [address] [place] [phone] * (ABNORMAL) Hepatic Function Panel (02/12/2025 4:56 AM EST) Bilirubin, Total 0.7 0.0 - 1.0 mg/dL [facility] Bilirubin, Direct 0.2 0.0 - 0.5 mg/dL [facility] Aspartate Amino Transferase 44(H) 5 - 31 U/L [facility] Comment:Mild Hemolysis.Inter pret result with caution Alanine Aminotransferase 18 0 - 31 U/L [facility] Total Protein 7.5 6.5 - 8.0 g/dL [facility] Comment:Mild Hemolysis.Inter pret result with caution Albumin Level 3.9 3.5 - 5.0 g/dL [facility] Alkaline Phosphatase 67 39 - 117 U/L [facility] 02/12/2025 4:56 AM EST 02/12/2025 6:13 AM EST us Generic External Data Provider LAB BLOOD ORDERAB LES Final Result [facility] [address] [place] [phone] * (ABNORMAL) Basic Metabolic Panel (02/12/2025 4:56 AM EST) Sodium 140 135 - 145 mmol/L [facility] Potassium 4.3 3.3 - 5.1 mmol/L [facility] Comment:Mild Hemolysis.Inter pret result with caution Chloride 107 96 - 108 mmol/L [facility] Carbon Dioxide 24 22 - 29 mmol/L [facility] Anion Gap 13 12 - 20 [facility] Urea Nitrogen (BUN) 18(H) 9 - 16 mg/dL [facility] Creatinine, Serum 0.87 0.5 - 1.4 mg/dL [facility] Creatinine Clr Calc Pharmacy 66.3 [facility] Comment:Provided height and weight: 149.86 cm,92 kg.eGFR (calculated from the MDRD study equation) and eCrCl(calculated from the Cockcroft-Gault equation) are based ondifferent parameters and may not yield comparable results.If eCrCl result is absurd, please check patient'sheight/weight. Estimated Glomerular Filt Rate >60 [facility] Comment:Chronic Kidney Disea se: Estimated GFR < 60 mL/min/1.56t7Wzmkmb Kidney Disease: Estimated GFR < 15 mL/min/1.73m2 Glucose 97 60 - 115 mg/dL [facility] Calcium 9.0 8.4 - 10.2 mg/dL [facility] 02/12/2025 4:56 AM EST 02/12/2025 6:13 AM EST Generic External Data Provider LAB BLOOD ORDERAB LES Final Result Performing Organization Address [facility] de Phone Number [facility] [address] [place] [phone] * SARS-CoV-2 RNA, Influenza A/B, and RSV RNA, Ql NAAT (02/12/2025 4:44 AM EST) Influenza A PCR NEGATIVE Negative [facility] Influenza B PCR NEGATIVE Negative [facility] Resp Syncy Virus RNA Qual PCR NEGATIVE Negative [facility] SARS COV2 PCR NEGATIVE Negative [facility] Comment:All test results mus t be correlated with clinical findings.Negative results do not preclude SARS-CoV2, influenza Avirus, influenza B virus and/or RSV infectionand should not be used as the sole basis for treatment orother patient management decisions. Negative results must becombined with clinical observations, patient history, andepidemiological information.This test has not been evaluated for monitoring treatment ofinfection.This test has been authorized by the FDA under an EmergencyUse Authorization (EUA) for use by authorized laboratories.Testing performed on the [employer] GeneXpert utilizingreal-time RT-PCR.All SARS CoV2 and positive influenza A/B results arereported to [facility]. 02/12/2025 4:44 AM EST 02/12/2025 4:50 AM EST Generic External Data Provider LAB MICROBIOLOGY - GENERAL ORDERABLES Final Result Performing Organization Address [facility] Co de Phone Number [facility] [address] [place] [phone] * XR Chest 2 Views (02/08/2025 1:30 PM EST) Anatomical Region Laterality Modality Chest Radiographic Kenyetta ging 02/08/2025 1:30 PM EST Narrative 02/08/2025 1:47 PM EST [facility] [address] [place] [address] XRay Report Signed Patient: Rita Patel MR#: [id number] : 1960 Acct:[id number] Age/Sex: 64 / F ADM Date: 02/08/25 Loc: PIPE Attending Dr: Christofer Zelaya NP Ordering Physician: CHRISTOFER ZELAYA NP Date of Service: 02/08/25 Procedure(s): XR chest 2V Accession Number(s): [id number] cc: CHRISTOFER ZELAYA NP; [facility] Reason for Exam: r/o PNA EXAMINATION: [...] by: Meet Moreland MD 02/08/2025 01:43 PM [facility] Dictated By: Meet Moreland MD Signed By: <Electronically signed by Meet Moreland MD in OV> 02/08/25 1343 DD/ 1330 TD/TT: 02/08/25 1338 Ton Container Filler: ZAK Procedure Note Donotuseinterpreter, Image - 02/08/2025 [place] [address] XRay Report Signed Patient: Rita Patel DMR#: [id number] : 1960Acct:[id number] Age/Sex: 64 / FADM Date: 02/08/25 Loc: PIPE Attending Dr: Christofer Zelaya NP Ordering Physician: CHRISTOFER ZELAYA NP Date of Service: 02/08/25 Procedure(s): XR chest 2V Accession Number(s): [id number] cc: CHRISTOFER ZELAYA NP; [facility] Reason for Exam: r/o PNA EXAMINATION: [...] 02/08/25 1343 DD/ 1330 TD/TT: 02/08/25 1338 Ton Container Filler: ZAK [facility] IM XR PROCEDURES Final Result * POCT Rapid Influenza B REEDER ID NOW (02/01/2025 4:57 PM EST) [facility] Influenza B Negative Negative, Indeterminate [facility] Swab 02/01/2025 4:57 PM EST [facility] 911 EMERGENCY DISPATCHER POINT OF CARE TEST ENTER/EDIT ORDERABLES Final Result Performing Organization Address [facility] Co de Phone Number [facility] [address] [place] [phone] * POCT Rapid Influenza A REEDER ID NOW (02/01/2025 4:57 PM EST) [facility] Influenza A Negative Negative, Indeterminate [facility] Swab 02/01/2025 4:57 PM EST [facility] 911 EMERGENCY DISPATCHER POINT OF CARE TEST ENTER/EDIT ORDERABLES Final Result Performing Organization Address [facility] Co de Phone Number [facility] [address] [place] [phone] * POCT Rapid Covid-19 BinaxNOW (02/01/2025 4:57 PM EST) [facility] Rapid COVID Ag Negative [facility] Swab 02/01/2025 4:57 PM EST [facility] POINT OF CARE TEST ENTER/EDIT ORDERABLES Final Result Performing Organization Address City/[facility]/ZIP Co de Phone Number [facility] [address] [place] [phone] * Hepatitis C Antibody with Reflex to HCV, RNA, Quantitative, Real-Time PCR (05/31/2022 8:50 AM EDT) Hepatitis C Antibody NON-REACT JAE NON-REACT JAE [facility] Index 0.02 <1.00 [facility] Comment: HCV antibody was non-reactive. There is no laboratory evidence of HCV infection. In most cases, no further action is required. However, if recent HCV exposure is suspected, a test for HCV RNA (test code 46036) is suggested. For additional information please refer to http://education.SkyTech/faq/BTA79e6 (This link is being provided for informational/ educational purposes only.) Blood Venous blood specimen / Unknown 05/31/2022 8:50 AM EDT 05/31/2022 8:51 AM EDT Narrative [facility] - 06/01/2022 5:54 PM EDT FASTING:YES FASTING: YES [facility] LAB BLOOD ORDERABLES Final Re sult Performing Organization Address City/[facility] Co de Phone Number [facility] [address] [facility], [place] [phone] [employer] [place] [employer] [address] [place] [address] * HIV-1/2 Antigen and Antibodies, Fourth Generation, with Reflexes (05/31/2022 8:50 AM EDT) HIV Antigen/Antibody, 4th Generation NON-REAC TIVE NON-REAC TIVE [employer] Comment: HIV-1 antigen and HIV-1/HIV-2 antibodies were [...] purpose. For additional information please refer to http://education.SkyTech/faq/EJY751 (This link is being provided for informational/ educational purposes only.) The performance of this assay has not been clinically validated in patients less than 2 years old. Blood Venous blood specimen / Unknown 05/31/2022 8:50 AM EDT 05/31/2022 8:51 AM EDT Narrative [facility] - 06/01/2022 5:54 PM EDT FASTING:YES FASTING: YES [facility] LAB BLOOD ORDERABLES Final Re sult [facility] [address], [place] [address] [employer] [place] [employer] [address] [place] [address] * (ABNORMAL) Lipid Panel, Standard (05/31/2022 8:50 AM EDT) [facility] Signature Cholesterol, Total 218(H) <200 mg/dL [employer] HDL Cholesterol 62 > OR = 50 mg/dL [employer] Triglycerides 206(H) <150 mg/dL [employer] Comment: If a non-fasting specimen was collected, consider repeat triglyceride testing on a fasting specimen if clinically indicated. Griselda et al. J. of Clin. Lipidol. 2015;9:129-169. LDL Cholesterol 124(H) mg/dL (calc) [employer] Comment: Reference range: <100 Desirable range <100 mg/dL for primary prevention; <70 mg/dL for patients with CHD or diabetic patients with > or = 2 CHD risk factors. LDL-C is now calculated using the Mario-No calculation, which is a validated novel method providing better accuracy than the Friedewald equation in the estimation of LDL-C. Mario SS et al. ANOOP. 2013;310(19): 1391-5563 (http://education.Rendeevoo/faq/VBS521) Chol/HDLC Ratio 3.5 <5.0 (calc) [facility] Non-HDL Cholesterol 156(H) <130 mg/dL (calc) [employer] [place] [employer] Comment: For patients with diabetes plus 1 major ASCVD risk factor, treating to a non-HDL-C goal of <100 mg/dL (LDL-C of <70 mg/dL) is considered a therapeutic option. Blood Venous blood specimen / Unknown 05/31/2022 8:50 AM EDT 05/31/2022 8:51 AM EDT Narrative [facility] - 06/01/2022 5:54 PM EDT FASTING:YES FASTING: YES [facility] LAB BLOOD ORDERABLES Final Re sult [facility] [address], [place] [address] [employer] [place] [employer] [address] [place] [address] * Mammography Report 1 (02/20/2021 10:24 AM [...] [facility] Comment: Methodology: [employer] Analyst-Mediated Amplification This assay detects E6/E7 viral messenger RNA (mRNA) from 14 high-risk HPV types (16,18,31,33,35,39,45,51,52,56,58,59,66,68). The analytical performance characteristics of this assay have been determined by [employer] The modifications have not been cleared or approved by the FDA. This assay has been validated pursuant to the CLIA regulations and is used for clinical purposes. For additional information, please refer to http://education.[employer]/faq/DPE868c3 (This link if provided for information/ educational purposes only.) THIS TEST WAS PERFORMED AT: [facility] [address] [place] [address] [address] FLO[address],[place] [address] FRANCISCO JAVIER DUVAL MD 12/28/2020 11:1 4 AM EDT Macarena Rodriguez HISTORICAL/NON ORDERABLE LABS Fi nal Result Performing Organization Address City/State/[facility] Co tx Phone Number [facility] [address] [place] [address] * Colonoscopy (09/29/2019) Colonoscopy Normal Normal Narrative Patricia Arreaga - 09/29/2019 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
--- OUTSIDE RECORDS SUMMARY | 2025-02-16 16:22 | XMS_ITS | Encounter Summary ---
Author Organization [employer] Address [address] [facility] 7t [place] [address] Care Team Providers Care Feed Elevator Worker Name Role Phone [facility] Primary Care Provider [phone] Mono Huggins INSTRUCTOR TRAFFIC SAFETY Unavailable Unavailable Reason for Visit * Reason Comments Med Refill Encounter Details Date Type Department Care Team ([facility] st Contact Info) Description 02/12/2025 Refill [facility] [address] [place] [address] [facility] [address] [place] [address] Jennifer rash Social History Tobacco Use Types Packs/Day Years [...] Description 03/03/2025 2:45 PM EST Office Visit [facility] [address] [place] [phone] Lilian Mcclellan FNP [address] [place] [address] 05/21/2025 3:15 PM EDT Office Visit [address] [address] Halima Hickman MD [address] [place] [address] documented as of this encounter Visit Diagnoses Diagnosis Groin rash documented in this encounter Additional Health Concerns Assessment Noted Time PHQ-9 Depression Total Score: 0 08/25/19 25 9:53 AM EDT documented as of this encounter Care Teams Feed Elevator Worker Relationship Specialty Start Date End Date Lilian Mcclellan FNP [address] [place] [address] PCP - General Family Medicine 04/26/22 Mono Huggins FNP [address] [facility] [place] [address] Nurse Practitioner Family Medicine 01/21/23 Maureen Gastelum [place] AgentMatzo Forming Machine Operator 02/11/24 documented as of this encounter
--- OUTSIDE RECORDS SUMMARY | 2025-02-16 16:22 | XMS_ITS | Clinical Summary ---
Author Organization [facility] Address [address] [place] [address] [place] [phone] Phone Care Team Providers Care Spool Carrier Name Role Phone Unavailable Primary Care Provider [...] file Medical Devices Not on file Insurance [facility] C[place] [address] [place] [address] C3 ACO C[employer] A[employer] ACO [employer]3 ACO C3 ACO [employer]3 ACO C3 ACO [facility] C3 ACO Additional Source Comments The information contained in this document represents components of the legal health record. It is not the complete legal health record.[facility]
--- OUTSIDE RECORDS SUMMARY | 2025-02-16 16:22 | XMS_ITS | Encounter Summary ---
Author Organization [employer] Address [address] [facility] 7t [place] [address] Care Team Providers Care Veterinary Anatomist Name Role Phone Lilian Mcclellan BASIC SCIENCES PROFESSOR Primary Care Provider [phone] Mono Huggins Unavailable Unavailable Encounter Details Date Type Department Care Team (Late st Contact Info) Description 02/12/2025 Orders Only GENERIC EXTERNAL DATA DEPARTMENT Provider, Generic External Data Social History Tobacco Use Types Packs/Day Years [...] Description 03/03/2025 2:45 PM EST Office Visit [facility] [address] [place] [phone] [facility] [address] [place] [address] 05/21/2025 3:15 PM EDT Office Visit [facility] [address] [place] [phone] Halima Hickman MD [address] [place] [address] documented as of this encounter Procedures Procedure [...] TROPONIN I Routine 02/12/2025 4:56 AM EST CBC WITH AUTO DIFFERENTIAL Routine 02/12/2025 4:56 AM EST MAGNESIUM Routine 02/12/2025 4:56 AM EST LIPASE Routine 02/12/2025 4:56 AM EST HEPATIC FUNCTION PANEL Routine 02/12/2025 4:56 AM EST BASIC METABOLIC PANEL Routine 02/12/2025 4:56 AM EST SARS COV2/INFLUENZA A/B AND RSV RNA QL NAAT Routine 02/12/2025 4:44 AM EST documented in this encounter Results * XR Hip left with Pelvis 1 view (02/14/2025 3:19 PM EST) Anatomical Region Laterality Modality Lower Extremities, Hip Bilateral Radiograp hic Imaging 02/14/2025 3:19 PM EST Narrative 02/14/2025 3:20 PM EST [place] [address] XRay Report Signed Patient: Rita Patel MR#: [id number] : 1960 Acct:[id number] Age/Sex: 64 / F ADM Date: 02/12/25 Loc: .S3 352-[address]: Isaiah Green MD Ordering Physician: Isaiah Green MD Date of Service: 02/14/25 Procedure(s): XR hip LT w PEL1V Accession Number(s): [id number] cc: [facility]; Isaiah Green MD Reason for Exam: [...] signed by Riri Hartman MD in OV> 02/14/251518 DD/ 18 TD/TT: 02/14/251518 Unit Support Representative: Procedure Note Donotuseinterpreter, Image - 02/14/2025 [place] [address] XRay Report Signed Patient: Rita Patel DMR#: [id number] : 1960Acct:[id number] Age/Sex: 64 / FADM Date: 02/12/25 Loc: .S3 352-[address]: Isaiah Green MD Ordering Physician: Isaiah Green MD Date of Service: 02/14/25 Procedure(s): XR hip LT w PEL1V Accession Number(s): [id number] cc: [facility]; Isaiah Green MD Reason for Exam: [...] signed by Riri Hartman MD in OV> 02/14/251518 DD/ 18 TD/TT: 02/14/251518 Unit Support Representative: [facility] External Provider IMG XR PROCEDURES Edited Result - Final * XR Knee 1-2 Views Left (02/14/2025 3:17 PM EST) Anatomical Region Laterality Modality Lower Extremities, Knee Left Radiogra phic Imaging 02/14/2025 3:17 PM EST Narrative 02/14/2025 3:19 PM EST [address] [address] XRay Report Signed Patient: Rita Patel MR#: [id number] : 1960 Acct:[id number] Age/Sex: 64 / F ADM Date: 02/12/25 Loc: HO.S3 352-[address]: Isaiah Green MD Ordering Physician: Isaiah Green MD Date of Service: 02/14/25 Procedure(s): XR knee LT 2V Accession Number(s): [id number] cc: [facility]; Isaiah Green MD Reason for Exam: [...] by Riri Hartman MD in OV> 02/14/25 1518 DD/ 1517 TD/TT: 02/14/25 1517 Unit Support Representative: Procedure Note Donotuseinterpreter, Image - 02/14/[address] [address] XRay Report Signed Patient: Rita Patel DMR#: [id number] : 1960Acct:[id number] Age/Sex: 64 / FADM Date: 02/12/25 Loc: HO.S3 352-[address]: Isaiah Green MD Ordering Physician: Isaiah Green MD Date of Service: 02/14/25 Procedure(s): XR knee LT 2V Accession Number(s): [id number] cc: [facility]; Isaiah Green MD Reason for Exam: [...] DO on 02/14/2025 15:17:31 Dictated By: Riri Hartmna MD Signed By: <Electronically signed by Riri Hartman MD in OV> 02/14/25 1518 DD/ 16 TD/TT: 02/14/251516 Unit Support Representative: [facility] External Provider IMG XR PROCEDURES Edited Result - Final * Lower Extremity Venous Duplex (02/14/2025 9:15 AM EST) 02/14/2025 9:15 AM EST [facility] - 02/15/2025 8:58 AM [place] [address] Ultrasound Report Signed Patient: Rita Patel MR#: [id number] : 1960 Acct:[id number] Age/Sex: 64 / F ADM Date: 02/12/25 Loc: .S3 352-[address]: Isaiah Green MD Ordering Physician: Isaiah Green MD Date of Service: 02/14/25 Procedure(s): US venous duplex LE LT Accession Number(s): [id number] cc: [facility]; Isaiah Green MD Reason for Exam: [...] OV> 02/15/25 0854 DD/ 4 TD/TT: 02/14/25919 Unit Support Representative: [facility] Procedure Note Donotuseinterpreter, Image - 02/15/2025 [place] [address] Ultrasound Report Signed Patient: Rita Patel DMR#: [id number] : 1960Acct:[id number] Age/Sex: 64 / FADM Date: 02/12/25 Loc: .S3 352-[address]: Isaiah Green MD Ordering Physician: Isaiah Green MD Date of Service: 02/14/25 Procedure(s): US venous duplex LE LT Accession Number(s): [id number] cc: [facility]; Isaiah Green MD Reason for Exam: [...] Eleuterio Solis MD 02/15/2025 08:54 AM EST RP Dictated By: Eleuterio Solis MD Signed By: <Electronically signed by Eleuterio Solis MD in OV> 02/15/25 0854 DD/ 4 TD/TT: 02/14/25 09 Unit Support Representative: [facility] External Provider CV VASC ULAR PROCEDURES Edited Result - Final Performing Organization Address [facility] Co de Phone Number [facility] [address] [place] [address] * Lactic Acid (02/12/2025 11:59 AM EST) Lactic Acid 1.0 0.5 - 2.0 mmol/L [facility] 02/12/2025 11:5 9 AM EST 02/12/2025 12:03 PM EST Generic External Data Provider LAB BLOOD ORDERAB LES Final Result Performing Organization Address [facility] de Phone Number [facility] [address] [place] [phone] * CTA Chest PE Protocal (02/12/2025 9:51 AM EST) Anatomical Region Laterality Modality Body, Chest Computed Tomogra phy 02/12/2025 9:51 AM EST Narrative 02/12/2025 10:35 AM EST [address] [address] [address] Scan Report Signed Patient: Rita Patel MR#: [id number] : 1960 Acct:[id number] Age/Sex: 64 / F ADM Date: 02/12/25 Loc: .ED Attending Dr: Ordering Physician: Ambika Naranjo MD Date of Service: 02/12/25 Procedure(s): CT angio chest PE protocol Accession Number(s): [id number] cc: [facility]; Ambika Naranjo MD Report Number: [id number]: Total DLP = 1031.00 mGy-cm Reason for [...] by: Nilo Vidal MD 02/12/2025 10:[address] [facility] Dictated By: Nilo Vidal MD Signed By: <Electronically signed by Nilo Vidal MD in OV> 02/12/25 1032 DD/ 0951 TD/TT: 02/12/25 1020 Unit Support Representative: Procedure Note Donotuseinterpreter, Image - 02/12/[address] [place] [address] [address] Scan Report Signed Patient: Rita Patel DMR#: [id number] : 1960Acct:[id number] Age/Sex: 64 / FADM Date: 02/12/25 Loc: HO.ED Attending Dr: Ordering Physician: Ambika Naranjo MD Date of Service: 02/12/25 Procedure(s): CT angio chest PE protocol Accession Number(s): [id number] cc: [facility]; Ambika Naranjo MD Report Number: [id number]: Total DLP = 1031.00 mGy-cm Reason for [...] 02/12/25 1032 DD/ 0951 TD/TT: 02/12/25 1020 Unit Support Representative: us [facility] External Provider IMG CT PROCEDURES Final Result * CT Abdomen Pelvis w/ Contrast (02/12/2025 7:43 AM EST) Anatomical Region Laterality Modality Body, Pelvis, Abdomen Computed T omography 02/12/2025 7:43 AM EST Narrative 02/12/2025 10:33 AM EST [address] [address] [address] Scan Report Signed Patient: Rita Patel MR#: [id number] : 1960 Acct:[id number] Age/Sex: 64 / F ADM Date: 02/12/25 Loc: .ED Attending Dr: Ordering Physician: Ambika Naranjo MD Date of Service: 02/12/25 Procedure(s): CT abdomen pelvis w IV con Accession Number(s): [id number] cc: [facility]; Ambika Naranjo MD Report Number: [id number]: Total DLP = 0.00 mGy-cm Reason for [...] 02/12/25 1030 DD/ 0743 TD/TT: 02/12/25 1020 Unit Support Representative: Procedure Note Donhelen, Image - 02/12/[address] [place] [address] [address] Scan Report Signed Patient: Rita Patel DMR#: [id number] : 1960Acct:[id number] Age/Sex: 64 / FADM Date: 02/12/25 Loc: HO.ED Attending Dr: Ordering Physician: Ambika Naranjo MD Date of Service: 02/12/25 Procedure(s): CT abdomen pelvis w IV con Accession Number(s): [id number] cc: [facility]; Ambika Naranjo MD Report Number: [id number]: Total DLP = 0.00 mGy-cm Reason for [...] 02/12/25 1030 DD/ 0743 TD/TT: 02/12/25 1020 Unit Support Representative: [facility] External Provider IMG CT PROCEDURES Final Result * CT Head w/o Contrast (02/12/2025 7:43 AM EST) Anatomical Region Laterality Modality Head, Neck Computed Tomogra phy 02/12/2025 7:43 AM EST Narrative 02/12/2025 8:11 AM EST [address] [address] [address] Scan Report Signed Patient: Rita Patel MR#: [id number] : 1960 Acct:[id number] Age/Sex: 64 / F ADM Date: 02/12/25 Loc: HO.ED Attending Dr: Ordering Physician: Ambika Naranjo MD Date of Service: 02/12/25 Procedure(s): CT head/brain wo IV con Accession Number(s): [id number] cc: [facility]; Ambika Naranjo MD Report Number: [id number]: Total DLP = 758.00 mGy-cm Reason for [...] 02/12/25 0809 DD/ 0743 TD/TT: 02/12/25 0802 Unit Support Representative: Procedure Note Donotuseinterpreter, Image - 02/12/[address] [address] [address] Scan Report Signed Patient: Rita Patel DMR#: [id number] : 1960Acct:[id number] Age/Sex: 64 / FADM Date: 02/12/25 Loc: HO.ED Attending Dr: Ordering Physician: Ambika Naranjo MD Date of Service: 02/12/25 Procedure(s): CT head/brain wo IV con Accession Number(s): [id number] cc: [facility]; Ambika Naranjo MD Report Number: [id number]: Total DLP = 758.00 mGy-cm Reason for [...] by: Ridge Ugalde MD 02/12/2025 08:[address] [facility] Dictated By: Ridge Ugalde MD Signed By: <Electronically signed by Ridge Ugalde MD in OV> 02/12/25 0809 DD/ 0743 TD/TT: 02/12/25 0802 Unit Support Representative: us [facility] External Provider IMG CT PROCEDURES Final Result * (ABNORMAL) Urinalysis, Complete, with Reflex to Culture (02/12/2025 6:10 AM EST) Color Urine Yellow [facility] Appearance Urine Clear [facility] PH 6.0 5.0 - 9.0 [facility] Glucose Urine UA Negative Negative mg/dL [facility] Urine Blood Negative Negative [facility] Specific [place] - Urine >=1.030(H) 1.005 - 1.025 [facility] Urine Protein 30 (1+)(A) Neg-Trace mg/dL [facility] Urine Ketones Trace Negative mg/dL [facility] Nitrite Urine Negative Negative [facility] Leukocyte Esterase Urine Trace(A) Negative [facility] RBC Urine 0-2 0 - 2 /HPF [facility] Urine WBC 11-20(A) 0 - 5 /HPF [facility] Urine Squamous Epithelial Cell 6-10 0 - 2 /HPF [facility] Urine Bacteria Trace None Seen [facility] Hyaline Casts, Urine 0-2 0 - 2 /LPF [facility] 02/12/2025 6:10 AM EST 02/12/2025 6:13 AM EST Narrative [facility] - 02/12/2025 6:25 AM EST [id number], Clean Catch Generic External Data Provider LAB URINE ORDERAB LES Final Result [facility] [address] [place] [phone] * High Sensitivity Troponin I (02/12/2025 4:56 AM EST) TROPONIN I HIGH SENSITIVITY 2.7 <3.5 - 17.0 ng/L [facility] Comment:The Alves high sens itivity Troponin-I results should beused in conjunction with other diagnostic information suchas ECG, clinical observations and information, and patientsymptoms to aid in the diagnosis of VA. 02/12/2025 4:56 AM EST 02/12/2025 6:13 AM EST Generic External Data Provider LAB BLOOD ORDERAB LES Final Result Performing Organization Address [facility] Phone Number [facility] [address] [place] [phone] * Lipase (02/12/2025 4:56 AM EST) [facility] Lipase 43 8 - 78 U/L [facility] 02/12/2025 4:56 AM EST 02/12/2025 6:13 AM EST Generic External Data Provider LAB BLOOD ORDERAB LES Final Result Performing Organization Address [facility] Phone Number [facility] [address] [place] [phone] * Magnesium (02/12/2025 4:56 AM EST) [facility] Magnesium 2.2 1.6 - 2.6 mg/dL [facility] 02/12/2025 4:56 AM EST 02/12/2025 6:13 AM EST Generic External Data Provider LAB BLOOD ORDERAB LES Final Result Performing Organization Address [facility] Phone Number [facility] [address] [place] [phone] * (ABNORMAL) Basic Metabolic Panel (02/12/2025 4:56 AM EST) [facility] Sodium 140 135 - 145 mmol/L [facility] Potassium 4.3 3.3 - 5.1 mmol/L [facility] Comment:Mild Hemolysis.Inter pret result with caution Chloride 107 96 - 108 mmol/L [facility] Carbon Dioxide 24 22 - 29 mmol/L [facility] Anion Gap 13 12 - 20 [facility] Urea Nitrogen (BUN) 18(H) 9 - 16 mg/dL [facility] Creatinine, Serum 0.87 0.5 - 1.4 mg/dL [facility] Creatinine Clr Calc Pharmacy 66.3 [facility] Comment:Provided height and weight: 149.86 cm,92 kg.eGFR (calculated from the MDRD study equation) and eCrCl(calculated from the Cockcroft-Gault equation) are based ondifferent parameters and may not yield comparable results.If eCrCl result is absurd, please check patient'sheight/weight. Estimated Glomerular Filt Rate >60 [facility] Comment:Chronic Kidney Disea se: Estimated GFR < 60 mL/min/1.69j0Xgvpeu Kidney Disease: Estimated GFR < 15 mL/min/1.73m2 Glucose 97 60 - 115 mg/dL [facility] Calcium 9.0 8.4 - 10.2 mg/dL [facility] 02/12/2025 4:56 AM EST 02/12/2025 6:13 AM EST us Generic External Data Provider LAB BLOOD ORDERAB LES Final Result [facility] [address] [place] [phone] * (ABNORMAL) Hepatic Function Panel (02/12/2025 4:56 AM EST) Bilirubin, Total 0.7 0.0 - 1.0 mg/dL [facility] Bilirubin, Direct 0.2 0.0 - 0.5 mg/dL [facility] Aspartate Amino Transferase 44(H) 5 - 31 U/L [facility] Comment:Mild Hemolysis.Inter pret result with caution Alanine Aminotransferase 18 0 - 31 U/L [facility] Total Protein 7.5 6.5 - 8.0 g/dL [facility] Comment:Mild Hemolysis.Inter pret result with caution Albumin Level 3.9 3.5 - 5.0 g/dL [facility] Alkaline Phosphatase 67 39 - 117 U/L [facility] 02/12/2025 4:56 AM EST 02/12/2025 6:13 AM EST us Generic External Data Provider LAB BLOOD ORDERAB LES Final Result Performing Organization Address City/State/[facility] Co de Phone Number [facility] [address] [place] [phone] * (ABNORMAL) CBC auto differential (02/12/2025 4:56 AM EST) White Blood Count 21.8(H) 4.8 - 10.8 X10*3/uL [facility] Red Blood Count 4.05(L) 4.20 - 5.50 X10*6/uL [facility] Hemoglobin 11.8(L) 12.0 - 16.0 g/dl [facility] Hematocrit 35.5(L) 37.0 - 47.0 % [facility] Mean Corpuscular Volume 87.7 80.0 - 98.0 fL [facility] Mean Corpuscular Hemoglobin 29.1 27.0 - 33.0 pg [facility] Mean Corpuscular HGB Conc 33.2 31.0 - 35.0 g/dl [facility] Red Cell Distribution Width 14.5 11.0 - 16.0 % [facility] Platelet Count 331 160 - 400 X10*3/uL [facility] Mean Platelet Volume 10.7 9.4 - 12.3 fL [facility] Neutrophils Percent Auto 87.2(H) 45 - 73 % [facility] Imm Gran Pct Auto 0.5(H) 0.0 - 0.4 % [facility] Lymphocytes Percent Auto 9.0(L) 20 - 40 % [facility] Monocytes Percent Auto 3.1 2 - 11 % [facility] Eosinophils Percent Auto 0.0 0 - 4 % [facility] Basophils Percent Auto 0.2 0 - 2 % [facility] NRBC Pct Auto 0.0 0.0 - 0.2 /100WBC [facility] Neutrophils Absolute Auto 19.0(H) 2.0 - 8.3 x10*3/uL [facility] Imm Gran Abs Auto 0.11(H) 0.00 - 0.03 X10*3/uL [facility] Lymphocytes Absolute Auto 2.0 1.2 - 4.9 X10*3/uL [facility] Monocytes Absolute Auto 0.7 0.1 - 1.2 X10*3/uL [facility] Eosinophils Absolute Auto 0.0 0.0 - 0.4 X10*3/uL [facility] Basophils Absolute Auto 0.0 0.0 - 0.2 X10*3/uL [facility] NRBC Abs Auto 0.000 0.0 - 0.012 X10*3/uL [facility] 02/12/2025 4:56 AM EST 02/12/2025 6:13 AM EST us Generic External Data Provider LAB BLOOD ORDERAB LES Final Result [facility] [address] [place] [phone] * SARS-CoV-2 RNA, Influenza A/B, and RSV RNA, Ql NAAT (02/12/2025 4:44 AM EST) Influenza A PCR NEGATIVE Negative [facility] Influenza B PCR NEGATIVE Negative [facility] Resp Syncy Virus RNA Qual PCR NEGATIVE Negative [facility] SARS COV2 PCR NEGATIVE Negative [facility] Comment:All test results mus t [...] use by authorized laboratories.Testing performed on the [email or web address] GeneXpert utilizingreal-time RT-PCR.All SARS CoV2 and positive influenza A/B results arereported to [facility]. 02/12/2025 4:44 AM EST 02/12/2025 4:50 AM EST us Generic External Data Provider LAB MICROBIOLOGY - GENERAL ORDERABLES Final Result [facility] [address] [place] [phone] documented in this encounter Visit Diagnoses Not on filedocumented in this encounter Additional Health Concerns Assessment Noted Time PHQ-9 Depression Total Score: 0 08/25/19 25 9:53 AM EDT documented as of this encounter Care Teams Veterinary Anatomist Relationship Specialty Start Date End Date Lilian Mcclellan FNP [address] [place] [phone] PCP - General Family Medicine 04/26/22 Mono Huggins FNP [address] [place] [phone] Nurse Practitioner Family Medicine 01/21/23 Maureen Gastelum Software Test And Validation EngineerUsed Car Lot Attendant 02/11/24 documented as of this encounter
--- OUTSIDE RECORDS SUMMARY | 2025-02-16 16:22 | XMS_ITS | Encounter Summary ---
Author Organization [employer] Address [address] [facility] 7t [place] [address] Care Team Providers Care Block Saw Operator Name Role Phone [facility] Primary Care Provider [phone] Mono Huggins Unavailable Unavailable Reason for Visit * Reason Onset Date Comments Prior Authorization 02/15/2025 PA: Darrius Encounter Details Date Type Department Care Team ([facility] st Contact Info) Description 02/15/2025 Telephone [facility] [address] [place] [address] Porter [place], [facility] [address] [place], [place] [phone] Prior Authorization (PA: Darrius) Social History Tobacco Use Types Packs/Day Years [...] encounter Miscellaneous Notes * Telephone Encounter - Lilly Lucia - 02/15/2025 4:05 PM EST MH PA for Trelegy was generated and sent to Plan via FAX with supporting documentation. Confirmation was uploaded to Media. * Telephone Encounter - Lilly Lucia - 02/15/2025 4:03 PM EST ----- Message from Ly Manjarrez sent at 02/10/2025 9:59 AM EST ----- Prescriber- [facility] ----- Message ----- From: SHEILA Max Sent: 02/08/2025 12:24 PM EST To: Zhang Harris Specialist Green Team Please initiate PA for trelegy - use PCP note 02/01/25 please documented in this encounter Plan of Treatment Upcoming Encounters Date Type Department Care Team ([facility] st Contact Info) Description 03/03/2025 2:45 PM EST Office Visit [facility] [address] [place] [address] [facility] [address] [place] [address] 05/21/2025 3:15 PM EDT Office Visit [facility] [address] [place] [address] Halima Hickman MD [address] [place], [place] [phone] documented as of this encounter Visit Diagnoses Not on filedocumented in this encounter Additional Health Concerns Assessment Noted Time PHQ-9 Depression Total Score: 0 08/25/19 25 9:53 AM EDT documented as of this encounter Care Teams Block Saw Operator Relationship Specialty Start Date End Date VyLilian givens [facility] [place] [address] PCP - General Family Medicine 04/26/22 Mono Huggins FNP [address] [place] [address] Nurse Practitioner Family Medicine 01/21/23 Maureen Gastelum Manager UnitManager Of Selection And Assessment 02/11/24 documented as of this encounter
--- OUTSIDE RECORDS SUMMARY | 2025-02-16 16:22 | XMS_ITS | Encounter Summary ---
Author Organization [facility] Address [address] [place] [address] Phone Care Team Providers Care Medical Scribe Name Role Phone Unavailable Primary Care Provider Unavailabl e Encounter Details Date Type Department Care Team (Late st Contact Info) Description 04/22/2019 Ancillary Orders [facility] [address] [place] [address] Shannan Yee PA [address] [place] [address] [email or web address] Social History Tobacco Use Types Packs/Day [...] It is not the complete legal health record.[facility]
--- OUTSIDE RECORDS SUMMARY | 2025-02-16 16:22 | XMS_ITS | Encounter Summary ---
Author Organization [employer] Address [address] [facility] 7t [place] [address] Care Team Providers Care Patch Setter Name Role Phone [place] [facility] Primary Care Provider [phone] Mono Huggins [facility] Unavailable Unavailable Reason for Visit * Reason Comments Med Refill Encounter Details Date Type Department Care Team (Late st Contact Info) Description 02/05/2025 Refill [facility] [address] [place] [address] [facility] [address] [place] [address] Restrictive lung disease Social History Tobacco Use [...] Description 03/03/2025 2:45 PM EST Office Visit [facility] [address] [place] [address] [address] 05/21/2025 3:15 PM EDT Office Visit [address] [address] Halima Hickman MD [address] [place] [address] documented as of this encounter Visit Diagnoses Diagnosis Restrictive lung disease Other diseases of lung, not elsewhere classified documented in this encounter Additional Health Concerns Assessment Noted Time PHQ-9 Depression Total Score: 0 08/25/19 25 9:53 AM EDT documented as of this encounter Care Teams Patch Setter Relationship Specialty Start Date End Date GatzkeLilian givens [facility] [address] [place] [address] PCP - General Family Medicine 04/26/22 Mono Huggins FNP [address] [place] [address] Nurse Practitioner Family Medicine 01/21/23 Maureen Gastelum Central Supply Technician SupervisorFloor Installation Mechanic 02/11/24 documented as of this encounter
--- OUTSIDE RECORDS SUMMARY | 2025-02-16 16:22 | XMS_ITS | Encounter Summary ---
Author Organization [employer] Address [address] [facility] 7t [place] [address] Care Team Providers Care Bloom Conveyor Operator Name Role Phone [place] [facility] Primary Care Provider [phone] Mono Huggins PLACEMENT SPECIALIST Unavailable Unavailable Reason for Visit * Reason Comments Med Refill Encounter Details Date Type Department Care Team (Late st Contact Info) Description 05/12/2024 Refill [facility] [address] [place] [address] [facility] [address] [place] [address] Class 3 severe obesity due to excess [...] Description 03/03/2025 2:45 PM EST Office Visit [facility] [address] [place] [address] Lilian Mcclellan FNP [address] [place] [address] 05/21/2025 3:15 PM EDT Office Visit [facility] [address] [place] [address] Halima Hickman MD [address] [place] [address] documented as of this encounter Visit Diagnoses Diagnosis Class 3 severe obesity due to excess calories with serious comorbidity and body mass index (BMI) of 40.0 to 44.9 in adult (HCC) documented in this encounter Additional Health Concerns Assessment Noted Time PHQ-9 Depression Total Score: 0 01/15/20 24 11:36 AM EST documented as of this encounter Care Teams Bloom Conveyor Operator Relationship Specialty Start Date End Date Lilian Mcclellan FNP [address] [place] [address] PCP - General Family Medicine 04/26/22 Mono Huggins FNP [address] [place] [address] Nurse Practitioner Family Medicine 01/21/23 Maureen Gastelum Web Development InternReceptionist/Telephone Operator 02/11/24 documented as of this encounter
--- OUTSIDE RECORDS SUMMARY | 2025-02-16 16:22 | XMS_ITS | Encounter Summary ---
Author Organization [employer] Address [address] [place] [address] 7t [place] [address] Care Team Providers Care Or Nurse Manager Name Role Phone [facility] Primary Care Provider [phone] Mono Huggins Unavailable Unavailable Reason for Visit * Reason Onset Date Comments Results 08/22/2022 TB Test Encounter Details Date Type Department Care Team ([facility] st Contact Info) Description 08/22/2022 Telephone [facility] [address] [place] [address] [facility] [address] [place] [address] Results (TB Test) Social History Tobacco Use [...] - 08/23/2022 11:48 AM EDT T/C to [phone] through [employer] id - [id number] for TB test, pt. Informed that clinic does not receive result yet, clinic will call once result is available. Pt. Verbally agreed and understood. * Telephone Encounter - Anabella Reyes - 08/22/2022 1:47 PM EDT Tc from patient requesting tb test results. Patient speaks south african documented in this encounter Plan of Treatment Upcoming Encounters Date Type Department Care Team (Late st Contact Info) Description 03/03/2025 2:45 PM EST Office Visit [facility] [address] [place] [address] Lilian Mcclellan FNP [address] [place] [address] 05/21/2025 3:15 PM EDT Office Visit [address] [address] Halima Hickman MD [address] [place] [address] documented as of this encounter Visit Diagnoses Not on filedocumented in this encounter Additional Health Concerns Assessment Noted Time PHQ-9 Depression Total Score: 3 08/10/19 23 10:21 AM EDT documented as of this encounter Care Teams Or Nurse Manager Relationship Specialty Start Date End Date Lilian Mcclellan FNP [address] [place] [address] PCP - General Family Medicine 04/26/22 Mono Huggins FNP [address] [place] [address] Nurse Practitioner Family Medicine 01/21/23 Maureen Gastelum Hospice RnSpecialist Wound Care 02/11/24 documented as of this encounter
--- OUTSIDE RECORDS SUMMARY | 2025-02-16 16:22 | XMS_ITS | Encounter Summary ---
Author Organization Mitch [facility] Address [address] [place] [address] Phone Care Team Providers Care Drywall Metal Stud Worker Name Role Phone Unavailable Primary Care Provider Unavailabl e Encounter Details Date Type Department Care Team (Late st Contact Info) Description 02/13/2019 Ancillary Orders [facility] [address] [place] [address] Shannan Yee PA [address] [place] [address] [email or web address] Social History Tobacco Use Types Packs/Day [...] It is not the complete legal health record.[facility]
--- OUTSIDE RECORDS SUMMARY | 2025-02-16 16:22 | XMS_ITS | Clinical Summary ---
Author Organization [address] Address [address] [place] [phone] Care Team Providers Care Certified Master Locksmith Name Role Phone Halima Hickman MD Primary [...] - 144 mmol/L 10/13/2017 4:37 PM EDT [facility] Potassium 3.4 3.4 - 4.8 mmol/L 10/13/2017 4:37 PM EDT [facility] Chloride 107 98 - 107 mmol/L 10/13/2017 4:37 PM EDT [facility] CO2 24 20 - 30 mmol/L 10/13/2017 4:37 PM EDT [facility] Anion Gap 11 7 - 17 10/13/2017 [facility] Glucose 142(H) 70 - 100 mg/dL 10/13/2017 4:37 PM EDT [facility] BUN 10 8 - 18 mg/dL 10/13/2017 4:37 PM EDT [facility] Creatinine 0.90 0.40 - 1.30 mg/dL 10/13/2017 4:37 PM EDT [facility] Calcium 8.8 8.8 - 10.2 mg/dL 10/13/2017 4:37 PM EDT [facility] BUN/Creatinine Ratio 11.1 8.0 - 23.0 10/13/2017 4:37 PM EDT [facility] eGFR (Afr Amer) >60 >60 mL/min/1.7 3m2 10/13/2017 4:37 PM EDT [facility] Comment: Values under 60mL/min/1.73m2 may indicate CKD if noted for more than 3 months. eGFR is only valid if creatinine is at steady state. eGFR (NON -Jessie n) >60 >60 mL/min/1.7 3m2 10/13/2017 4:37 PM EDT [facility] Comment: Values under 60mL/min/1.73m2 may indicate CKD if noted for more than 3 months. eGFR is only valid if creatinine is at steady state. Blood specimen (specimen) Venipuncture / Unknown 10/13/2017 4:07 PM EDT 10/13/2017 4:09 PM EDT Luis Mederos MD LAB BLOOD ORDERABLES Final Resu lt [facility] [address] [place] [address], [facility] [phone] from Last 3 Months or Most Recently Relevant to Health Maintenance Insurance [id number] MEDICAID [id number] MEDICAID [id number] MEDICAID Care Teams Certified Master Locksmith Relationship Specialty Start Date End Date Halima Hickman MD PCP - General 10/13/17
--- OUTSIDE RECORDS SUMMARY | 2025-02-16 16:22 | XMS_ITS | Encounter Summary ---
Author Organization [employer] Address [address] [facility] 7t [place] [address] Care Team Providers Care College And Career Counselor Name Role Phone [facility] Primary Care Provider [phone] Mono Huggins LAWN SPECIALIST Unavailable Unavailable Reason for Visit * Reason Onset Date Comments Referral 08/30/2023 Encounter Details Date Type Department Care Team (Late st Contact Info) Description 08/30/2023 Telephone [facility] [address] [place] [address] [facility] [address] [place] [address] Referral Social History Tobacco Use Types Packs/Day [...] shoulders and knees at [facility] ortho. At this time reports knees are all set and are not bothering [facility] Last seen by [facility]o [...] 10:59 AM EDT TC returned to Maureen [phone] however no answer, RN left requesting CB to red team nurses. Maureen to f/u PRN. * Telephone Encounter - Dain Lucia - 08/30/2023 3:43 PM EDT Tc from Maureen with [facility] calling requesting status on physical therapy and orthopedics referral. Please contact Maureen at [phone]. documented in this encounter Plan of Treatment Upcoming Encounters Date Type Department Care Team (Late st Contact Info) Description 03/03/2025 2:45 PM EST Office Visit [facility] [address] [place] [address] HarperLilian givens [address] [address] 05/21/2025 3:15 PM EDT Office Visit [address] [address] Halima Hickman MD [address] [place] [phone] documented as of this encounter Visit Diagnoses Not on filedocumented in this encounter Additional Health Concerns Assessment Noted Time PHQ-9 Depression Total Score: 0 05/28/19 24 9:46 AM EDT documented as of this encounter Care Teams College And Career Counselor Relationship Specialty Start Date End Date Lilian Mcclellan FNP [address] [place] [address] PCP - General Family Medicine 04/26/22 Mono Huggins FNP [address] [place] [address] Nurse Practitioner Family Medicine 01/21/23 Maureen Gastelum Client Operations ManagerHotel Guest Service Agent 02/11/24 documented as of this encounter
--- OUTSIDE RECORDS SUMMARY | 2025-02-16 16:22 | XMS_ITS | Encounter Summary ---
Author Organization [employer] Address [address] [facility] 7t [place] [address] Care Team Providers Care Building Surveyor Name Role Phone Lilian Mcclellan ENVIRONMENTAL WEB CRAWLER Primary Care Provider [phone] Mono Huggins ENVIRONMENTAL WEB CRAWLER Unavailable Unavailable Encounter Details Date Type Department Care Team (Late st Contact Info) Description 01/11/2023 Abstract [facility] [address] [place] [address] Patricia Arreaga Social History Tobacco Use Types [...] 2:45 PM EST Office Visit [facility] [address] [place] [address] Lilian Mcclellan FNP [address] [place] [address] 05/21/2025 3:15 PM EDT Office Visit [address] [phone] Halima Hickman MD [address] [place] [address] documented as of this encounter Procedures Procedure [...] documented as of this encounter Care Teams Building Surveyor Relationship Specialty Start Date End Date Lilian Mcclellan FNP [address] [place] [address] PCP - General Family Medicine 04/26/22 Mono Huggins FNP [address] [facility] [address] Nurse Practitioner Family Medicine 01/21/23 Maureen Gastelum Cycle Touring GuideCommunity Marketing Manager 02/11/24 documented as of this encounter
== END 2025-02-16 15:39 | disposition home or self-care (01) ==
LOC: HO.HPS 15:04
PROVIDERS: PCP Registered Nurse; Visit Provider Hospitalist
DX: J45.51 Severe persistent asthma with (acute) exacerbation (principal); J30.9 Allergic rhinitis, unspecified; G47.33 Obstructive sleep apnea (adult) (pediatric); K21.9 Gastro-esophageal reflux disease without esophagitis; J18.9 Pneumonia, unspecified organism
CPT/HCPCS: 99214

== ENCOUNTER → 2025-02-16 15:04 | Outpatient (BNVA) | payer MEDICAID, SELFPAY | PROVIDERS: PCP Registered Nurse; Visit Provider Hospitalist | DX: J45.51 Severe persistent asthma with (acute) exacerbation (principal); J30.9 Allergic rhinitis, unspecified; G47.33 Obstructive sleep apnea (adult) (pediatric); K21.9 Gastro-esophageal reflux disease without esophagitis; J18.9 Pneumonia, unspecified organism; Z99.89 Dependence on other enabling machines and devices; Z79.899 Other long term (current) drug therapy | CPT/HCPCS: 99212 ==